=== PATIENT | male | born 1945 | race Caucasian/White ===

== ENCOUNTER 2017-09-30 00:12 | Emergency (ER) | payer OTHER ==
[2017-09-30 00:56] LABS: Glucose,Whole Blood 115 mg/dL (75-99)
--- NOTE | 2017-09-30 01:01 | ED ---
Recheck HPI - General Chief Complaint: Recheck/Abnormal Lab/Rx Stated Complaint: hypoglycemia Time Seen by Provider: 09/30/17 00:36 Source: patient, EMS, RN notes reviewed Mode of arrival: EMS Limitations: no limitations - History of Present Illness Initial Comments: 71-year-old male present emergency department via EMS for hyperglycemic event. Patient was not acting right at home was falling off the couch. EMS was called on her blood sugar in the 50s. Patient states he is only a once today and he took 86 units of 70/30 Novolin. Patient states that he's had problems like this in the past. At this time family states that he is at his normal baseline he denies headache, dizziness, chest pain, shortness breath, nausea vomiting diarrhea constipation. - Related Data Home Medications Medication Instructions Recorded Confirmed Atorvastatin [Lipitor] 80 mg PO DAILY 01/19/16 01/23/16 Benazepril HCl 40 mg PO HS 01/19/16 01/23/16 Insuln Asp Prt/Insulin Aspart 50 unit SQ W/SUPPER 01/19/16 01/23/16 [NovoLOG MIX 70-30 VIAL] Insuln Asp Prt/Insulin Aspart 85 unit SQ QAM 01/19/16 01/23/16 [NovoLOG MIX 70-30 VIAL] Naproxen [Naprosyn] 500 mg PO Q12HR 01/19/16 01/19/16 Omeprazole [PriLOSEC] 20 mg PO AC-BRKFST 01/19/16 01/23/16 amLODIPine [Norvasc] 10 mg PO HS 01/19/16 01/23/16 metFORMIN HCL 1,000 mg PO BID 01/19/16 01/23/16 Allergies Allergy/AdvReac Type Severity Reaction Status Date / Time Penicillins Allergy "passed Verified 01/23/16 07:19 out" Review of Systems ROS Statement: Those systems with pertinent positive or pertinent negative responses have been documented in the HPI. ROS Other: All systems not noted in ROS Statement are negative. Past Medical History Past Medical History: Asthma, Diabetes Mellitus, Hyperlipidemia, Hypertension Additional Past Medical History / Comment(s): hernia, History of Any Multi-Drug Resistant Organisms: None Reported Past Surgical History: No Surgical Hx Reported Additional Past Surgical History / Comment(s): surgery both eyes for detached retina Past Anesthesia/Blood Transfusion Reactions: No Reported Reaction Past Psychological History: No Psychological Hx Reported Smoking Status: Former smoker Past Alcohol Use History: None Reported Past Drug Use History: None Reported - Past Family History Sister(s) Family Medical History: Cancer Father Family Medical History: Cancer Brother(s) Family Medical History: Cancer General Exam Limitations: no limitations General appearance: alert, in no apparent distress Head exam: Present: atraumatic, normocephalic, normal inspection Eye exam: Present: normal appearance, PERRL, EOMI. Absent: scleral icterus, conjunctival injection, periorbital swelling ENT exam: Present: normal exam, normal oropharynx, mucous membranes moist, TM's normal bilaterally Neck exam: Present: normal inspection, full ROM. Absent: tenderness, meningismus, lymphadenopathy Respiratory exam: Present: normal lung sounds bilaterally. Absent: respiratory distress, wheezes, rales, rhonchi, stridor Cardiovascular Exam: Present: regular rate, normal rhythm, normal heart sounds. Absent: systolic murmur, diastolic murmur, rubs, gallop, clicks GI/Abdominal exam: Present: soft, normal bowel sounds. Absent: distended, tenderness, guarding, rebound, rigid Neurological exam: Present: alert, oriented X3, CN II-XII intact, reflexes normal. Absent: motor sensory deficit Skin exam: Present: warm, dry, intact, normal color. Absent: rash Course Vital Signs 09/30/17 00:40 Temperature 97.7 F Pulse Rate 78 Respiratory 18 Rate Blood Pressure 171/79 O2 Sat by Pulse 95 Oximetry Medical Decision Making - Medical Decision Making 71-year-old male present emergency department for hypoglycemic event. Patient' s blood sugar has been stable for 2 hours. Patient denies any much today and took a full dose of insulin. Patient has had some cough and cold-like symptoms chest x-ray reviewed no acute abnormality. Patient be discharged return parameters were discussed. - Lab Data Result diagrams: 09/30/17 01:19 09/30/17 01:19 Lab Results 09/30/17 09/30/17 09/30/17 Range/Units 00:51 01:19 01:19 WBC 7.7 (3.8-10.6) k/uL RBC 5.20 (4.30-5.90) m/uL Hgb 14.5 (13.0-17.5) gm/dL Hct 43.5 (39.0-53.0) % MCV 83.6 (80.0-100.0) fL MCH 27.8 (25.0-35.0) pg MCHC 33.3 (31.0-37.0) g/dL RDW 13.9 (11.5-15.5) % Plt Count 246 (150-450) k/uL Neutrophils % 83 % Lymphocytes % 11 % Monocytes % 5 % Eosinophils % 0 % Basophils % 0 % Neutrophils # 6.4 (1.3-7.7) k/uL Lymphocytes # 0.8 L (1.0-4.8) k/uL Monocytes # 0.4 (0-1.0) k/uL Eosinophils # 0.0 (0-0.7) k/uL Basophils # 0.0 (0-0.2) k/uL Sodium 138 (137-145) mmol/L Potassium 4.0 (3.5-5.1) mmol/L Chloride 94 L (98-107) mmol/L Carbon Dioxide 32 H (22-30) mmol/L Anion Gap 12 mmol/L BUN 10 (9-20) mg/dL Creatinine 0.60 L (0.66-1.25) mg/dL Est GFR (CKD-EPI)AfAm >90 (>60 ml/min/1.73 sqM) Est GFR (CKD-EPI)NonAf >90 (>60 ml/min/1.73 sqM) Glucose 136 H (74-99) mg/dL POC Glucose (mg/dL) 115 H (75-99) mg/dL POC Glu Ribbon Inker ID Gabriela Kelly Calcium 9.2 (8.4-10.2) mg/dL 09/30/17 Range/Units 02:00 WBC (3.8-10.6) k/uL RBC (4.30-5.90) m/uL Hgb (13.0-17.5) gm/dL Hct (39.0-53.0) % MCV (80.0-100.0) fL MCH (25.0-35.0) pg MCHC (31.0-37.0) g/dL RDW (11.5-15.5) % Plt Count (150-450) k/uL Neutrophils % % Lymphocytes % % Monocytes % % Eosinophils % % Basophils % % Neutrophils # (1.3-7.7) k/uL Lymphocytes # (1.0-4.8) k/uL Monocytes # (0-1.0) k/uL Eosinophils # (0-0.7) k/uL Basophils # (0-0.2) k/uL Sodium (137-145) mmol/L Potassium (3.5-5.1) mmol/L Chloride (98-107) mmol/L Carbon Dioxide (22-30) mmol/L Anion Gap mmol/L BUN (9-20) mg/dL Creatinine (0.66-1.25) mg/dL Est GFR (CKD-EPI)AfAm (>60 ml/min/1.73 sqM) Est GFR (CKD-EPI)NonAf (>60 ml/min/1.73 sqM) Glucose (74-99) mg/dL POC Glucose (mg/dL) 154 H (75-99) mg/dL POC Glu Ribbon Inker ID Gabriela Kelly Calcium (8.4-10.2) mg/dL Disposition Clinical Impression: Hypoglycemia, URI (upper respiratory infection) Disposition: HOME SELF-CARE Condition: Stable Instructions: Hypoglycemia in a Person with Diabetes (ED) Additional Instructions: Please return to the Emergency Department if symptoms worsen or any other concerns. Referrals: Yaya Gunter DO [Primary Care Provider] - 1-2 days Time of Disposition: 02:04
[2017-09-30 01:36] LABS: Basophils % (A) 0 %; Eosinophils % (A) 0 %; HCT 43.5 % (39.0-53.0); HGB 14.5 gm/dL (13.0-17.5); Lymphocytes # (A) 0.8 k/uL (1.0-4.8); Lymphocytes % (A) 11 %; MCH 27.8 pg (25.0-35.0); MCHC 33.3 g/dL (31.0-37.0); MCV 83.6 fL (80.0-100.0); Mean Platelet Volume 7.7; Monocytes # (A) 0.4 k/uL (0-1.0); Monocytes % (A) 5 %; Neutrophils # (A) 6.4 k/uL (1.3-7.7); Neutrophils % (A) 83 %; Platelet Count 246 k/uL (150-450); RDW 13.9 % (11.5-15.5); WBC 7.7 k/uL (3.8-10.6)
[2017-09-30 01:47] LABS: Anion Gap 12 mmol/L; Blood Urea Nitrogen 10 mg/dL (9-20); Calcium 9.2 mg/dL (8.4-10.2); Carbon Dioxide 32 mmol/L (22-30); Chloride 94 mmol/L (98-107); Glucose 136 mg/dL (74-99); Sodium 138 mmol/L (137-145)
--- NOTE | 2017-09-30 01:47 | XR ---
EXAMINATION TYPE: XR chest 2V DATE OF EXAM: 09/30/2017 COMPARISON: NONE HISTORY: Cough TECHNIQUE: Frontal and lateral views of the chest are obtained. FINDINGS: There is no heart failure nor confluent pneumonic infiltrate. There is some elevation of t he right diaphragm with interposition of the hepatic flexure of the colon. There is no pleural effusi on. Bony thorax is intact. IMPRESSION: Mild elevated right diaphragm. No parenchymal consolidation or heart failure.
[2017-09-30 02:02] LABS: Glucose,Whole Blood 154 mg/dL (75-99)
[2017-09-30 02:09] VITALS: TEMP 99.3
[2017-09-30 02:16] VITALS: BP 159/78; PULSE 74; RESP 16
== END 2017-09-30 02:26 | disposition home or self-care (01) ==
LOC: EC 00:12
DX: E11.649 Type 2 diabetes mellitus with hypoglycemia without coma (principal); J06.9 Acute upper respiratory infection, unspecified; E78.5 Hyperlipidemia, unspecified; I10 Essential (primary) hypertension; Z87.891 Personal history of nicotine dependence; Z88.0 Allergy status to penicillin; Z79.1 Long term (current) use of non-steroidal anti-inflammatories (NSAID); Z79.4 Long term (current) use of insulin; Z79.84 Long term (current) use of oral hypoglycemic drugs; Z79.899 Other long term (current) drug therapy
CPT/HCPCS: 36415; 71046; 80048; 85025; 99284

== ENCOUNTER 2017-11-03 06:48 | Day surgery (SDC) | payer OTHER ==
[2017-10-31 09:00] VITALS: BMI 21.9
[~2017-11-03 06:48] MED LIST: LACTATED RINGERS 1,000 ML IV SCH
[2017-11-03 07:17] VITALS: RESP 18; TEMP 98.8
[2017-11-03] MEDS ORDERED: LACTATED RINGERS 1,000 ML IV ONE (07:17)
[2017-11-03 07:21] LABS: Glucose,Whole Blood 145 mg/dL (75-99)
[2017-11-03] MEDS ORDERED: LIDOCAINE 1% INJ 10MG/ML (20 ML MDV) ONE (07:45)
[2017-11-03] MEDS ORDERED: PROPOFOL 10 MG/ML 20 ML VIAL IV ONE (07:45)
--- NOTE | 2017-11-03 08:37 | P.PCN ---
Date of Procedure: 11/03/17 Procedure(s) Performed: Procedure: Colonoscopy and polypectomy. Preoperative diagnosis: Screening for neoplasia. Postoperative diagnosis: 1. Small polyp in the rectum snared but no large polyps or cancer. 2. Poor preparation, otherwise, no other obvious pathology noted. Preparation: HalfLytely prep. Sedation: Was provided by anesthesia. Brief clinical history: The patient is 71-year-old male who is scheduled for this evaluation for screening for neoplasia age being his risk factor as well as history of polyps. He had a prior exam in 2016 that showed no obvious abnormalities but his preparation was poor. The patient has no abdominal complaints, bleeding or anemia. Procedure: With the patient on his left lateral decubitus position and after informed consent and adequate sedation, the perianal area was inspected and it did not show any fissures or fistulas. There were no masses felt on digital rectal examination. The Olympus CFQ 160L video colonoscope was then inserted in the rectum in the usual fashion and advanced. The preparation was poor, and unfortunately, the preparation was not getting any better as I was advancing the endoscope to the right side and cecum. There was no obvious pathology noted but with his poor preparation significant pathology could have been missed. There was no obvious bleeding and all fecal material was yellow-green in color. Where visualized, the mucosa appeared healthy. Upon withdrawing the endoscope and as I was cleansing the bowel, a small polyp was noted in the rectum which I snared and retrieved by suction. The patient tolerated the procedure. Plan: In light of his preparation, I recommended a repeat exam in one year or two after a 2 day preparation especially if the polyp removed today show adenomatous tissue. He'll follow up with you as planned.
[2017-11-03 08:39] LABS: Glucose,Whole Blood 146 mg/dL (75-99)
[2017-11-03 08:57] VITALS: BP 172/90; PULSE 90
== END 2017-11-03 09:32 | disposition home or self-care (01) ==
LOC: ORWHC2ENDO 06:48
DX: Z12.11 Encounter for screening for malignant neoplasm of colon (principal); D12.8 Benign neoplasm of rectum; Z86.010 Personal history of colon polyps; E11.9 Type 2 diabetes mellitus without complications; J45.909 Unspecified asthma, uncomplicated; K21.9 Gastro-esophageal reflux disease without esophagitis; I10 Essential (primary) hypertension; E78.5 Hyperlipidemia, unspecified; Z72.0 Tobacco use; Z88.0 Allergy status to penicillin; Z79.1 Long term (current) use of non-steroidal anti-inflammatories (NSAID); Z79.4 Long term (current) use of insulin; Z79.899 Other long term (current) drug therapy
CPT/HCPCS: 88305; 45385; J2001; J2704

== ENCOUNTER 2018-08-12 07:25 | Day surgery (SDC) | payer MEDICARE, OTHER ==
[2018-08-10 09:37] VITALS: BMI 37.8
[~2018-08-12 07:25] MED LIST changes: +CLINDAMYCIN 900 MG in DEXTROSE 5% IN WATER 50 ML IVPB ONE; +DEXAMETHASONE SOD PHOSPHATE 10 MG/ML 1 ML VIAL IV ONE; +HEPARIN SODIUM,PORCINE 5,000 UNIT/ML 1 ML VIAL SQ ONE; +LEVOFLOXACIN 500MG-D5W PMX 500 MG in DEXTROSE/WATER 1 100ML.BAG IVPB ONE; +LIDOCAINE 1% 20 ML VIAL (10MG/ML) FOR IV START INTRADERMA PRN; +MIDAZOLAM 2 MG/2 ML VIAL IV PRN; +fentaNYL (PF) 50 MCG/ML 2 ML AMP IV PRN
[2018-08-12 08:47] LABS: Glucose,Whole Blood 340 mg/dL (75-99)
[2018-08-12] MEDS ORDERED: ONDANSETRON 4 MG/2 ML VIAL IVP ONE (08:56)
[2018-08-12] MEDS ORDERED: INSULIN ASPART (NovoLOG) 100 UNIT/ML VIAL SQ ONE ×3 (09:15→14:38)
--- NOTE | 2018-08-12 09:27 | P.GSHP ---
History of Present Illness H&P Date: 08/12/18 Chief Complaint: Incarcerated umbilical hernia This a 72-year-old male who has developed a large incarcerated umbilical hernia. Patient presents today for laparoscopic robotic-assisted repair. 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 History of Any Multi-Drug Resistant Organisms: None Reported Past Surgical History: No Surgical Hx Reported Additional Past Surgical History / Comment(s): surgery both eyes for detached retina, colonoscopy Past Anesthesia/Blood Transfusion Reactions: No Reported Reaction Past Psychological History: No Psychological Hx Reported Smoking Status: Current some day smoker Past Alcohol Use History: None Reported Additional Past Alcohol Use History / Comment(s): occ cigar, quit smoking cigarettes 1966 Past Drug Use History: None Reported - Past Family History Sister(s) Family Medical History: Cancer Additional Family Medical History / Comment(s): 2 SISTERS HAD MELANOMA Father Family Medical History: Cancer Additional Family Medical History / Comment(s): MELANOMA Brother(s) Family Medical History: Cancer Mother Family Medical History: Cancer Additional Family Medical History / Comment(s): BREAST CA Medications and Allergies Home Medications Medication Instructions Recorded Confirmed Type Insuln Asp Prt/Insulin Aspart 65 unit SQ HS 01/19/16 08/12/18 History [NovoLOG MIX 70-30 VIAL] Insuln Asp Prt/Insulin Aspart 80 unit SQ QA 01/19/16 08/12/18 History [NovoLOG MIX 70-30 VIAL] Omeprazole [PriLOSEC] 20 mg PO AC-BRKFST 01/19/16 08/12/18 History amLODIPine [Norvasc] 10 mg PO HS 01/19/16 08/12/18 History metFORMIN HCL 1,000 mg PO BID 01/19/16 08/12/18 History Cholecalciferol [Vitamin D3] 5,000 unit PO DAILY 10/31/17 08/12/18 History Calcium (Unknown Dose) 1 tab PO DAILY 08/10/18 08/12/18 History Fexofenadine/Pseudoephedrine 1 each PO DAILY 08/10/18 08/12/18 History [Pari-D 24 Hour Tablet] Nyquil Cold & Flu 1 dose PO HS PRN 08/10/18 08/12/18 History [place]-3 Fatty Acids/Fish Oil [Fish 1 each PO DAILY 08/10/18 08/12/18 History Oil 1,000 mg Softgel] Vitamin E (Dl,Tocopheryl Acet) 400 unit PO DAILY 08/10/18 08/12/18 History [Vitamin E] Allergies Allergy/AdvReac Type Severity Reaction Status Date / Time Sulfa (Sulfonamide Allergy Unknown Rash/Hives Verified 08/12/18 08:34 Antibiotics) Penicillins Allergy "passed Verified 08/12/18 08:34 out" Surgical - Exam Vital Signs Temp Pulse Resp BP Pulse Ox 97.7 F 91 18 181/86 95 08/12/18 08:45 08/12/18 08:45 08/12/18 08:45 08/12/18 08:45 08/12/18 08:45 - General well developed, well nourished, no distress - Eyes PERRL - ENT normal pinna - Neck no masses - Respiratory normal expansion - Cardiovascular Rhythm: regular - Abdomen Abdomen: soft, non tender Hernia: umbilical (5 cm incarcerated umbilical hernia) Results - Labs Abnormal Lab Results - Last 24 Hours (Table) 08/12/18 Range/Units 08:45 POC Glucose (mg/dL) 340 H (75-99) mg/dL Assessment and Plan Assessment: Incarcerated local hernia. We'll perform laparoscopic robotic-assisted repair.
[2018-08-12] MEDS ORDERED: ROPIVACAINE 5 MG/ML 30 ML VIAL ONE (09:46)
[2018-08-12] MEDS ORDERED: ROCURONIUM BROMIDE 10 MG/ML 10 ML VIAL IV ONE (09:46)
[2018-08-12] MEDS ORDERED: LIDOCAINE 2%-EPI 1:100,000 20 ML VIAL ONE (09:46)
[2018-08-12] MEDS ORDERED: fentaNYL (PF) 50 MCG/ML 2 ML AMP ONE (09:46)
[2018-08-12] MEDS ORDERED: BUPIVACAIN-EPI 0.25%-1:200,000 30 ML VIAL SQ ONE ×2 (09:46→10:14)
[2018-08-12] MEDS ORDERED: MIDAZOLAM 2 MG/2 ML VIAL ONE (09:46)
[2018-08-12] MEDS ORDERED: LIDOCAINE 1% INJ 10MG/ML (20 ML MDV) ONE (09:46)
[2018-08-12] MEDS ORDERED: PROPOFOL 10 MG/ML 20 ML VIAL IV ONE (09:46)
[2018-08-12] MEDS ORDERED: NEOSTIGMINE 1 MG/ML 10 ML VIAL ONE (09:46)
[2018-08-12] MEDS ORDERED: GLYCOPYRROLATE 0.2 MG/ML 2 ML VIAL ONE (09:46)
[2018-08-12] MEDS ORDERED: LACTATED RINGERS 1,000 ML IV ONE (10:47)
[2018-08-12 11:04] LABS: Glucose,Whole Blood 359 mg/dL (75-99)
--- NOTE | 2018-08-12 11:16 | P.OP ---
Date of Procedure: 08/12/18 Preoperative Diagnosis: Incarcerated umbilical hernia Postoperative Diagnosis: Incarcerated umbilical hernia Procedure(s) Performed: Laparoscopic robotic-assisted repair of incarcerated umbilical hernia Partial omentectomy Anesthesia: MAC Surgeon: Chivo Zamora Estimated Blood Loss (ml): 5 Pathology: other (Omentum) Condition: stable Disposition: PACU Description of Procedure: The patient was placed on the operating table in the supine position. He received general anesthesia. His abdomen was prepped and draped usual fashion. Using a 5 mm optical trocar under direct visualization the peritoneal cavity was entered in the left upper quadrant. The abdomen was then insufflated. The laparoscope was placed back into the perineal cavity. Next a 8 mm robotic trocar was placed in the left lower quadrant and a 12 mm robotic trocar was placed in the left lateral position. The original 5 mm trocar was exchanged for a 8 mm robotic trocar. The patient's placed in the left side up position. And the patient was undocked the robot. The umbilical hernia was visualized. The hernia contained incarcerated omentum. The hernia defect measured approximately 3 cm diameter. Using the hook cautery the neck of the hernial was divided and the incarcerated omentum was dissected free. A small portion of the nonviable omentum was transected. Using hook cautery the peritoneum over the umbilical hernia was excised. The fascial opening was repaired using 0V LOC suture. Next a piece of 11 cm round ventral light ST mesh was placed into the. Cavity and secured with 2 OV lock suture. The patient was undocked the robot. The needles were retrieved. The omentum was retrieved. The fascia of the 12 mm trocar site was closed with 0 Ethibond suture. Skin was closed interrupted 3-0 Monocryl suture. Dermabond dressings was applied. Patient top procedure well and was sent to recovery room stable condition.
[2018-08-12 11:21] VITALS: TEMP 97
[2018-08-12 11:55] VITALS: RESP 16
[2018-08-12] MEDS ORDERED: HYDROcodone/APAP 7.5-325MG 1 EACH TAB PO ONE (13:46)
[2018-08-12 14:17] VITALS: BP 170/79; PULSE 92
[2018-08-12 14:33] LABS: Glucose,Whole Blood 352 mg/dL (75-99)
--- NOTE | 2018-08-13 07:06 | P.ONQ ---
Anesthesiology Proc Note - PNB - Peripheral Nerve Block Performed Bilateral Rectus Abdominis Single Time Out Performed: Yes Procedure Start Time: Procedure Stop Time: Indication: Acute Post-Operative Pain, Requested by physician Sedation Type: Sedate with meaningful contact maintained Preparation: Sterile Prep Position: Supine Needle Size: 50mm (2") Needle Gauge: 21 Technique: Ultrasound (ropi 15cc plus xylo2% with epi 15cc and dexamethasone 2mg each side) Blood Aspirated: No Pain Paresthesia on Injection Noted: No Resistance on Injection: Normal Events: Uneventful and Well Tolerated
== END 2018-08-12 15:00 | disposition home or self-care (01) ==
LOC: OR 07:25
PROVIDERS: ATTEND Surgery
DX: K42.0 Umbilical hernia with obstruction, without gangrene (principal); E11.9 Type 2 diabetes mellitus without complications; E78.5 Hyperlipidemia, unspecified; H91.92 Unspecified hearing loss, left ear; I10 Essential (primary) hypertension; J45.909 Unspecified asthma, uncomplicated; F17.290 Nicotine dependence, other tobacco product, uncomplicated; K21.9 Gastro-esophageal reflux disease without esophagitis; Z79.4 Long term (current) use of insulin; Z88.0 Allergy status to penicillin; Z88.2 Allergy status to sulfonamides; Z79.899 Other long term (current) drug therapy
CPT/HCPCS: 49653; 64488; 88305; C1781; J2250; J1644; J1100; J2710; J2405; J2001; J3010; J2795; J2704; 93005

== ENCOUNTER 2019-11-30 11:20 | Inpatient (IN) | payer OTHER, MEDICARE ==
[2019-11-30 11:52] LABS: Glucose,Whole Blood 64 mg/dL (75-99)
[2019-11-30 12:15] LABS: Basophils % (A) 0 %; Eosinophils # (A) 0.1 k/uL (0-0.7); Eosinophils % (A) 1 %; HCT 48.7 % (39.0-53.0); HGB 15.7 gm/dL (13.0-17.5); Lymphocytes % (A) 9 %; MCH 28.7 pg (25.0-35.0); MCHC 32.2 g/dL (31.0-37.0); MCV 89.2 fL (80.0-100.0); Mean Platelet Volume 8.3; Monocytes # (A) 0.5 k/uL (0-1.0); Monocytes % (A) 4 %; Neutrophils # (A) 9.8 k/uL (1.3-7.7); Neutrophils % (A) 85 %; Platelet Count 299 k/uL (150-450); RBC 5.46 m/uL (4.30-5.90); RDW 13.9 % (11.5-15.5); WBC 11.5 k/uL (3.8-10.6)
[2019-11-30] MEDS ORDERED: DEXTROSE 5%-0.45% NACL 1,000 ML IV ONE (12:37)
--- NOTE | 2019-11-30 12:37 | CT ---
EXAMINATION TYPE: CT brain wo con DATE OF EXAM: 11/30/2019 COMPARISON: None HISTORY: Altered mental status. CT DLP: 1139.4 mGycm Automated exposure control for dose reduction was used. FINDINGS: Low-attenuation the right occipital lobe. There is generalized degenerative change. No midline shift or mass effect. Low-attenuation the white matter is most typical remote microvascular ischemia. No ma ss effect. Calvarium intact. No acute hemorrhage. Small focal area of low attenuation in the left octavio lamus suggestive of remote IMPRESSION: DEGENERATIVE AND NONSPECIFIC WHITE MATTER CHANGES MOST TYPICAL REMOTE ISCHEMIA. AREA OF INFARCT INVOL VING THE RIGHT OCCIPITAL LOBE SUSPECTED. RECOMMEND FOLLOW-UP MRI.
[2019-11-30 12:38] LABS: Glucose,Whole Blood 52 mg/dL (75-99)
--- NOTE | 2019-11-30 12:38 | XR ---
EXAMINATION TYPE: XR chest 2V DATE OF EXAM: 11/30/2019 COMPARISON: NONE TECHNIQUE: PA and lateral views submitted. HISTORY: Mental status change FINDINGS: The lungs are clear and there is no pneumothorax, pleural effusion, or focal pneumonia. Degenerativ e change of the spine. Elevated hemidiaphragm. No obvious consolidation. Subsegmental changes right l gris base likely related to compressive atelectasis. Nonspecific air-fluid levels are seen in the abdo men on the lateral view. Correlate clinically. IMPRESSION: 1. Elevated right hemidiaphragm with suspected right basilar atelectasis.
[2019-11-30] MEDS ORDERED: DEXTROSE 50% SYRINGE 50 ML IVP STA (12:39)
[2019-11-30 12:47] LABS: Partial Thromboplastin Time 21.4 sec (22.0-30.0); Prothrombin Time 10.1 sec (9.0-12.0)
[2019-11-30 13:03] LABS: Glucose,Whole Blood 94 mg/dL (75-99)
[2019-11-30] MEDS ORDERED: hydrALAZINE HCL 20 MG/ML 1 ML VIAL IVP STA (13:09)
[2019-11-30 13:38] LABS: Potassium 4.3 mmol/L (3.5-5.1)
[2019-11-30 13:39] LABS: ALT 17 U/L (4-49); AST 27 U/L (17-59); African American GFR (CKD) >90 (>60 ml/min/1.73 sqM); Albumin 4.1 g/dL (3.5-5.0); Alkaline Phosphatase 61 U/L (38-126); Anion Gap 9 mmol/L; Blood Urea Nitrogen 14 mg/dL (9-20); Calcium 9.9 mg/dL (8.4-10.2); Carbon Dioxide 26 mmol/L (22-30); Chloride 99 mmol/L (98-107); Glucose 136 mg/dL (74-99); Magnesium 1.7 mg/dL (1.6-2.3); Non-African American GFR(CKD) >90 (>60 ml/min/1.73 sqM); Phosphorus 3.9 mg/dL (2.5-4.5); Sodium 134 mmol/L (137-145); Total Protein 7.2 g/dL (6.3-8.2)
[2019-11-30 14:02] LABS: Glucose,Whole Blood 107 mg/dL (75-99)
--- NOTE | 2019-11-30 14:12 | ED ---
Altered Mental Status HPI <Jeo Mansfield - Last Filed: 11/30/19 14:32> - General Source: patient, family Mode of arrival: EMS Limitations: altered mental status <Amanda Melchor - Last Filed: 11/30/19 15:11> - General Chief Complaint: Altered Mental Status Stated Complaint: LOW BLOOD SUGAR Time Seen by Provider: 11/30/19 11:45 - History of Present Illness Initial Comments: 73-year-old male presents today for chief complaint of low blood glucose. Sister states that this morning patient seemed out of it EMS was called and had a blood glucose of 48. Patient states he did not take his insulin this morning but is an insulin-dependent diabetic also takes metformin. Patient denies chest pain shortness of breath headache dizziness he states he has been weak for the past week. He denies any exertional dyspnea leg swelling. He states that he has noted a twitch and we will positioning of his right upper extremity. He denies weakness of the extremity diplopia, voice changes. Denies psychiatric medication use. Denies additional complaints. Upon arrival pt continues to have low blood glucose despite drinking juice. AAOX4. (Amanda Melchor) - Related Data Home Medications Medication Instructions Recorded Confirmed Insuln Asp Prt/Insulin Aspart 43 unit SQ HS 01/19/16 08/11/19 [NovoLOG MIX 70-30 VIAL] Insuln Asp Prt/Insulin Aspart 85 unit SQ QA 01/19/16 08/11/19 [NovoLOG MIX 70-30 VIAL] Omeprazole [PriLOSEC] 20 mg PO AC-BRKFST 01/19/16 08/11/19 amLODIPine [Norvasc] 10 mg PO HS 01/19/16 08/11/19 metFORMIN HCL 1,000 mg PO DAILY 01/19/16 08/11/19 Cholecalciferol [Vitamin D3] 5,000 unit PO DAILY 10/31/17 08/11/19 Calcium (Unknown Dose) 1 tab PO DAILY 08/10/18 08/11/19 [place]-3 Fatty Acids/Fish Oil [Fish 1 each PO DAILY 08/10/18 08/11/19 Oil 1,000 mg Softgel] Vitamin E (Dl,Tocopheryl Acet) 400 unit PO DAILY 08/10/18 08/11/19 [Vitamin E] Loratadine [Claritin] 10 mg PO DAILY 08/11/19 08/11/19 Allergies Allergy/AdvReac Type Severity Reaction Status Date / Time Sulfa (Sulfonamide Allergy Unknown Rash/Hives Verified 11/30/19 11:27 Antibiotics) Penicillins Allergy "passed Verified 11/30/19 11:27 out" Review of Systems ROS Other: All systems not noted in ROS Statement are negative. <Joe Mansfield - Last Filed: 11/30/19 14:32> ROS Other: All systems not noted in ROS Statement are negative. <Amanda Melchor - Last Filed: 11/30/19 15:11> ROS Statement: Those systems with pertinent positive or pertinent negative responses have been documented in the HPI. Past Medical History Past Medical History: Asthma, Diabetes Mellitus, GERD/Reflux, Hypertension Additional Past Medical History / Comment(s): HEARING LOSS LEFT EAR. History of Any Multi-Drug Resistant Organisms: None Reported Past Surgical History: Hernia Repair Additional Past Surgical History / Comment(s): surgery both eyes for detached retina, colonoscopy Past Anesthesia/Blood Transfusion Reactions: No Reported Reaction Past Psychological History: No Psychological Hx Reported Smoking Status: Former smoker Past Alcohol Use History: None Reported Past Drug Use History: None Reported - Past Family History Sister(s) Family Medical History: Cancer Additional Family Medical History / Comment(s): 2 SISTERS HAD MELANOMA Father Family Medical History: Cancer Additional Family Medical History / Comment(s): MELANOMA Brother(s) Family Medical History: Cancer Mother Family Medical History: Cancer Additional Family Medical History / Comment(s): BREAST CA <Amanda Melchor - Last Filed: 11/30/19 15:11> General Exam Limitations: altered mental status <Amanda Melchor - Last Filed: 11/30/19 15:11> - General Exam Comments Initial Comments: General: The patient is awake and alert, in no distress Eye: +3 mm pupils are equal, round and reactive to light, extra-ocular movements are intact. No nystagmus. There is normal conjunctiva bilaterally. No signs of icterus. Ears, nose, mouth and throat: There are moist mucous membranes and no oral lesions. Neck: The neck is supple, there is no tenderness or JVD. Cardiovascular: There is a regular rate and rhythm. No murmur, rub or gallop is appreciated. Respiratory: Lungs are clear to auscultation, respirations are non-labored, breath sounds are equal. No wheezes, stridor, rales, or rhonchi. Gastrointestinal: Soft, non-distended, non-tender abdomen without masses or organomegaly noted. There is no rebound or guarding present. Musculoskeletal: Normal ROM, no tenderness. Strength 5/5. Sensation intact. Radial pulses equal bilaterally 2+. Neurological: A&O x 3. CN II-XII intact, full strength of the UE and LE b/l. Sensation of the UE and LE b/l.Tremor and contracture of the right hand but has full conductor yard strength. Coordination intact. Speech is normal. No pronator drift. No drift of the LE. Skin: Skin is warm and dry and no rashes or lesions are noted. Psychiatric: Cooperative, appropriate mood & affect, normal judgment. (Amanda Melchor) Course <Joe Mansfield - Last Filed: 11/30/19 14:32> Vital Signs 11/30/19 11/30/19 11/30/19 11:23 12:01 12:42 Temperature 97.5 F L Pulse Rate 63 73 71 Respiratory 18 16 16 Rate Blood Pressure 160/68 167/98 133/115 O2 Sat by Pulse 98 100 99 Oximetry 11/30/19 11/30/19 13:12 14:01 Temperature Pulse Rate 86 70 Respiratory 16 18 Rate Blood Pressure 133/74 146/95 O2 Sat by Pulse 99 100 Oximetry - Reevaluation(s) Reevaluation #1: 11/30/19 14:32 PA supervision: I personally evaluate this case patient presenting with complaints of symptoms consistent with hypoglycemia. He continues to demonstra te evidence of low blood sugar. He will be admitted case was discussed with Dr. Rabago. (Joe Mansfield) Medical Decision Making - Lab Data Result diagrams: 11/30/19 11:57 11/30/19 13:04 <Joe Mansfield - Last Filed: 11/30/19 14:32> - Lab Data Result diagrams: 11/30/19 11:57 11/30/19 13:04 <Amanda Melchor - Last Filed: 11/30/19 15:11> - Medical Decision Making 73-year-old male presenting for low glucose, generalized weakness. Noted tremor or right hand. No weakness. NIH 0. No focal deficits. CT remote infarct. Labs stable, however despite treatment sugars labile. Patient will be placed onf D5- 1/2 NS in attempt to regulate with frequent reevaluation of blood glucose. Patient is agreeable to admission. Neurology on consult. Dr. Rabago accepted patient. Dr. Mansfield agreeable to care plan and admission' (Amanda Melchor) - Lab Data Lab Results 11/30/19 11/30/19 11/30/19 Range/Units 11:46 11:57 11:57 WBC 11.5 H (3.8-10.6) k/uL RBC 5.46 (4.30-5.90) m/uL Hgb 15.7 (13.0-17.5) gm/dL Hct 48.7 (39.0-53.0) % MCV 89.2 (80.0-100.0) fL MCH 28.7 (25.0-35.0) pg MCHC 32.2 (31.0-37.0) g/dL RDW 13.9 (11.5-15.5) % Plt Count 299 (150-450) k/uL Neutrophils % 85 % Lymphocytes % 9 % Monocytes % 4 % Eosinophils % 1 % Basophils % 0 % Neutrophils # 9.8 H (1.3-7.7) k/uL Lymphocytes # 1.0 (1.0-4.8) k/uL Monocytes # 0.5 (0-1.0) k/uL Eosinophils # 0.1 (0-0.7) k/uL Basophils # 0.0 (0-0.2) k/uL PT 10.1 (9.0-12.0) sec INR 1.0 (<1.2) APTT 21.4 L (22.0-30.0) sec Sodium (137-145) mmol/L Potassium (3.5-5.1) mmol/L Chloride (98-107) mmol/L Carbon Dioxide (22-30) mmol/L Anion Gap mmol/L BUN (9-20) mg/dL Creatinine (0.66-1.25) mg/dL Est GFR (CKD-EPI)AfAm (>60 ml/min/1.73 sqM) Est GFR (CKD-EPI)NonAf (>60 ml/min/1.73 sqM) Glucose (74-99) mg/dL POC Glucose (mg/dL) 64 L (75-99) mg/dL POC Glu Analog Ic Design Architect ID Michaelle Garnica Calcium (8.4-10.2) mg/dL Phosphorus (2.5-4.5) mg/dL Magnesium (1.6-2.3) mg/dL Total Bilirubin (0.2-1.3) mg/dL AST (17-59) U/L ALT (4-49) U/L Alkaline Phosphatase (38-126) U/L Ammonia (<30) umol/L Troponin I (0.000-0.034) ng/mL Total Protein (6.3-8.2) g/dL Albumin (3.5-5.0) g/dL 11/30/19 11/30/19 11/30/19 Range/Units 11:57 12:36 13:01 WBC (3.8-10.6) k/uL RBC (4.30-5.90) m/uL Hgb (13.0-17.5) gm/dL Hct (39.0-53.0) % MCV (80.0-100.0) fL MCH (25.0-35.0) pg MCHC (31.0-37.0) g/dL RDW (11.5-15.5) % Plt Count (150-450) k/uL Neutrophils % % Lymphocytes % % Monocytes % % Eosinophils % % Basophils % % Neutrophils # (1.3-7.7) k/uL Lymphocytes # (1.0-4.8) k/uL Monocytes # (0-1.0) k/uL Eosinophils # (0-0.7) k/uL Basophils # (0-0.2) k/uL PT (9.0-12.0) sec INR (<1.2) APTT (22.0-30.0) sec Sodium (137-145) mmol/L Potassium (3.5-5.1) mmol/L Chloride (98-107) mmol/L Carbon Dioxide (22-30) mmol/L Anion Gap mmol/L BUN (9-20) mg/dL Creatinine (0.66-1.25) mg/dL Est GFR (CKD-EPI)AfAm (>60 ml/min/1.73 sqM) Est GFR (CKD-EPI)NonAf (>60 ml/min/1.73 sqM) Glucose (74-99) mg/dL POC Glucose (mg/dL) 52 L 94 (75-99) mg/dL POC Glu Analog Ic Design Architect ID Cinthia Estrada Kayla Calcium (8.4-10.2) mg/dL Phosphorus (2.5-4.5) mg/dL Magnesium (1.6-2.3) mg/dL Total Bilirubin (0.2-1.3) mg/dL AST (17-59) U/L ALT (4-49) U/L Alkaline Phosphatase (38-126) U/L Ammonia <9 (<30) umol/L Troponin I (0.000-0.034) ng/mL Total Protein (6.3-8.2) g/dL Albumin (3.5-5.0) g/dL 11/30/19 11/30/19 11/30/19 Range/Units 13:04 13:04 14:00 WBC (3.8-10.6) k/uL RBC (4.30-5.90) m/uL Hgb (13.0-17.5) gm/dL Hct (39.0-53.0) % MCV (80.0-100.0) fL MCH (25.0-35.0) pg MCHC (31.0-37.0) g/dL RDW (11.5-15.5) % Plt Count (150-450) k/uL Neutrophils % % Lymphocytes % % Monocytes % % Eosinophils % % Basophils % % Neutrophils # (1.3-7.7) k/uL Lymphocytes # (1.0-4.8) k/uL Monocytes # (0-1.0) k/uL Eosinophils # (0-0.7) k/uL Basophils # (0-0.2) k/uL PT (9.0-12.0) sec INR (<1.2) APTT (22.0-30.0) sec Sodium 134 L (137-145) mmol/L Potassium 4.3 (3.5-5.1) mmol/L Chloride 99 (98-107) mmol/L Carbon Dioxide 26 (22-30) mmol/L Anion Gap 9 mmol/L BUN 14 (9-20) mg/dL Creatinine 0.69 (0.66-1.25) mg/dL Est GFR (CKD-EPI)AfAm >90 (>60 ml/min/1.73 sqM) Est GFR (CKD-EPI)NonAf >90 (>60 ml/min/1.73 sqM) Glucose 136 H (74-99) mg/dL POC Glucose (mg/dL) 107 H (75-99) mg/dL POC Glu Analog Ic Design Architect ID Nirali Donaldson Calcium 9.9 (8.4-10.2) mg/dL Phosphorus 3.9 (2.5-4.5) mg/dL Magnesium 1.7 (1.6-2.3) mg/dL Total Bilirubin 1.0 (0.2-1.3) mg/dL AST 27 (17-59) U/L ALT 17 (4-49) U/L Alkaline Phosphatase 61 (38-126) U/L Ammonia (<30) umol/L Troponin I <0.012 (0.000-0.034) ng/mL Total Protein 7.2 (6.3-8.2) g/dL Albumin 4.1 (3.5-5.0) g/dL Disposition <Joe Mansfield - Last Filed: 11/30/19 14:32> Is patient prescribed a controlled substance at d/c from ED?: No Time of Disposition: 14:12 Decision to Admit Reason: Admit from EC Decision Date: 11/30/19 Decision Time: 14:12 <Amanda Melchor - Last Filed: 11/30/19 15:11> Clinical Impression: Hypoglycemia, Labile blood glucose, Generalized weakness, Spasms of the hands or feet, Cerebral infarction, remote, resolved Disposition: ADMITTED IP TO THIS [facility] Condition: Serious Referrals: None,Stated [Primary Care Provider] - 1-2 days
[2019-11-30] MEDS ORDERED: NALOXONE 0.4 MG/ML 1 ML VIAL IV PRN ×2 (15:09→16:09)
[2019-11-30 15:16] LABS: Glucose,Whole Blood 74 mg/dL (75-99)
[2019-11-30] MEDS ORDERED: ACETAMINOPHEN TAB 325 MG TAB PO PRN (16:09)
--- NOTE | 2019-11-30 16:20 | P.HPIM ---
History of Present Illness H&P Date: 11/30/19 Chief Complaint: falls 73-year-old male presents today for chief complaint of low blood glucose. Sister states that this morning patient seemed out of it EMS was called and had a blood glucose of 48. Patient states he did not take his insulin this morning but is an insulin-dependent diabetic also takes metformin. Patient is a poor historian and most of the history was taken from her sister at the bedside, the sister stated that patient has been having a lot of imbalance over the past several days and he fell twice. Slurred speech was also reported. No blurred or double vision. No focal weakness or numbness. No chest pain or shortness of breath, headache, dizziness. No leg swelling. Upon arrival to the ER he continued to have low blood glucose despite drinking juice. He dropped as low as 52 in the emergency department. Currently blood sugar is 72. Patient had a head CT scan which showed right occipital lobe infarct. Chest x-ray showed right basilar atelectasis. EKG showed normal sinus rhythm without acute ST or T-wave changes. Review of Systems Complete review of system performed, pertinent positives per HPI, otherwise negative Past Medical History Past Medical History: Asthma, Diabetes Mellitus, GERD/Reflux, Hypertension Additional Past Medical History / Comment(s): HEARING LOSS LEFT EAR. History of Any Multi-Drug Resistant Organisms: None Reported Past Surgical History: Hernia Repair Additional Past Surgical History / Comment(s): surgery both eyes for detached retina, colonoscopy Past Anesthesia/Blood Transfusion Reactions: No Reported Reaction Past Psychological History: No Psychological Hx Reported Smoking Status: Former smoker Past Alcohol Use History: None Reported Past Drug Use History: None Reported - Past Family History Sister(s) Family Medical History: Cancer Additional Family Medical History / Comment(s): 2 SISTERS HAD MELANOMA Father Family Medical History: Cancer Additional Family Medical History / Comment(s): MELANOMA Brother(s) Family Medical History: Cancer Mother Family Medical History: Cancer Additional Family Medical History / Comment(s): BREAST CA Medications and Allergies Home Medications Medication Instructions Recorded Confirmed Type Insuln Asp Prt/Insulin Aspart 50 unit SQ HS 01/19/16 11/30/19 History [NovoLOG MIX 70-30 VIAL] Insuln Asp Prt/Insulin Aspart 80 unit SQ QAM 01/19/16 11/30/19 History [NovoLOG MIX 70-30 VIAL] Omeprazole [PriLOSEC] 20 mg PO AC-BRKFST 01/19/16 11/30/19 History amLODIPine [Norvasc] 10 mg PO HS 01/19/16 11/30/19 History metFORMIN HCL 500 mg PO BID 01/19/16 11/30/19 History Cholecalciferol [Vitamin D3] 1,000 unit PO DAILY 10/31/17 11/30/19 History [place]-3 Fatty Acids/Fish Oil [Fish 1 cap PO DAILY 08/10/18 11/30/19 History Oil 1,000 mg Softgel] Vitamin E (Dl,Tocopheryl Acet) 400 unit PO DAILY 08/10/18 11/30/19 History [Vitamin E] Loratadine [Claritin] 10 mg PO DAILY 08/11/19 11/30/19 History Allergies Allergy/AdvReac Type Severity Reaction Status Date / Time Sulfa (Sulfonamide Allergy Unknown Rash/Hives Verified 11/30/19 15:32 Antibiotics) Penicillins Allergy "passed Verified 11/30/19 15:32 out" Physical Exam Vitals: Vital Signs Temp Pulse Resp BP Pulse Ox 11/30/19 15:31 80 16 156/81 99 11/30/19 14:01 70 18 146/95 100 11/30/19 13:12 86 16 133/74 99 11/30/19 12:42 71 16 133/115 99 11/30/19 12:01 73 16 167/98 100 11/30/19 11:23 97.5 F L 63 18 160/68 98 Intake and Output 11/30/19 11/30/19 11/30/19 06:59 14:59 22:59 Other: Weight 99.79 kg Constitutional: No acute distress, conversant, pleasant Eyes:Anicteric sclerae, moist conjunctiva, no lid-lag, PERRLA, ENMT: Oropharynx clear, no erythema, exudates Neck: Supple, FROM, no masses, or JVD, No carotid bruits, No thyromegaly Lungs: Clear to auscultation, Clear to percussion, Normal respiratory effort, no accessory muscle use Cardiovascular: Heart regular in rate and rhythm, No murmurs, gallops, or rubs, No peripheral edema Abdominal: Soft, Nontender, no guarding, rebound or rigidity, Normoactive bowel sounds, No hepatomegaly, No splenomegaly, No palpable mass Skin: Normal temperature, tone, texture, turgor, no induration, No subcutaneous nodules, No rash, lesions, No ulcers Extremities: No digital cyanosis, No clubbing, Pedal pulses intact and symmetrical, Radial pulses intact and symmetrical, No calf tenderness Psychiatric: Alert and oriented to person, place and time, appropriate affect, intact judgement Neuro: Muscles Strength 5/5 in all 4 extremities, Sensation to light touch gross ly present throughout, Cranial nerves II-XII grossly intact, no focal sensory deficits Results CBC & Chem 7: 11/30/19 11:57 11/30/19 13:04 Labs: Abnormal Lab Results - Last 24 Hours (Table) 11/30/19 11/30/19 11/30/19 Range/Units 11:46 11:57 11:57 WBC 11.5 H (3.8-10.6) k/uL Neutrophils # 9.8 H (1.3-7.7) k/uL APTT 21.4 L (22.0-30.0) sec Sodium (137-145) mmol/L Glucose (74-99) mg/dL POC Glucose (mg/dL) 64 L (75-99) mg/dL 11/30/19 11/30/19 11/30/19 Range/Units 12:36 13:04 14:00 WBC (3.8-10.6) k/uL Neutrophils # (1.3-7.7) k/uL APTT (22.0-30.0) sec Sodium 134 L (137-145) mmol/L Glucose 136 H (74-99) mg/dL POC Glucose (mg/dL) 52 L 107 H (75-99) mg/dL 11/30/19 Range/Units 15:14 WBC (3.8-10.6) k/uL Neutrophils # (1.3-7.7) k/uL APTT (22.0-30.0) sec Sodium (137-145) mmol/L Glucose (74-99) mg/dL POC Glucose (mg/dL) 74 L (75-99) mg/dL Assessment and Plan Plan: Occipital CVA Likely acute Start aspirin 325 mg by mouth daily Bedside swallow evaluation PT and OT Telemetry MRI brain CT angio head and neck Echo Check lipid profile and A1c Hypoglycemia Discontinue to insulin treatment Start D5 and water at 75 mL per hour. Check glucose every 2 hours. Diabetes type 2 Hold metformin Start subcu insulin once hypoglycemia resolved Hypertension Allow permissive hypertension Hold BP meds GERD Chronic Admitted to inpatient Expected length of stay more than 2 midnights
[2019-11-30 16:29] LABS: Glucose,Whole Blood 61 mg/dL (75-99)
[2019-11-30] MEDS ORDERED: DEXTROSE 5%-0.45% NACL 1,000 ML IV SCH ×2 (16:30→18:15)
[2019-11-30] MEDS: ASPIRIN 325 MG TAB PO SCH (16:39)
[2019-11-30 18:24] LABS: Glucose,Whole Blood 77 mg/dL (75-99)
[2019-11-30] MEDS: DEXTROSE 5%-0.45% NACL 1,000 ML IV SCH (18:46)
[2019-11-30 19:55] LABS: Glucose,Whole Blood 105 mg/dL (75-99)
--- NOTE | 2019-11-30 20:19 | CT ---
EXAMINATION TYPE: CT angio head neck DATE OF EXAM: 11/30/2019 COMPARISON: None HISTORY: Weakness, dizziness CT DLP: 661.2 mGycm Automated exposure control for dose reduction was used. CONTRAST: Performed with IV Contrast, patient injected with 65 mL of Isovue 370. There are 3-D post processed images. Ascending aorta measures 3.8 cm. There is no evidence of dissection. There is normal branching patter n of the great vessels on the aortic arch. There is bilateral arterial flow in the subclavian arterie s. There is arterial flow in the common internal and external carotid arteries bilaterally. There is significant plaque formation at the carotid artery bifurcations. There is unfortunately motion artifa ct and carotid artery bifurcations are somewhat obscured. There could BE at least 50% stenosis at the origins of both internal carotid arteries. I see no evidence of carotid or vertebral artery aneurysm or dissection. There is bilateral arterial flow in the vertebral arteries. There is arterial flow in the anterior middle and posterior cerebral arteries. There is arterial flow in the vertebrobasilar artery system. I see no evidence of intracranial aneurysm or neovascularity. There is no mass effect. There is no evidence of intracranial arterial stenosis. There is normal cont rast opacification of the venous sinuses. IMPRESSION: Moderate calcification at the carotid artery bifurcations. Motion artifact. There is probably 50% deloris nosis at the origins of both internal carotid arteries. Ultrasound or repeat limited CT angiogram is recommended to be definitive about the degree of stenosis at the carotid artery bifurcations. No angiographic intracranial abnormality.
[2019-11-30 22:38] LABS: Glucose,Whole Blood 73 mg/dL (75-99)
[2019-11-30] MEDS: amLODIPine 10 MG TAB PO SCH (23:10)
[2019-12-01 00:38] LABS: Glucose,Whole Blood 103 mg/dL (75-99)
[2019-12-01 02:09] LABS: Glucose,Whole Blood 137 mg/dL (75-99)
[2019-12-01] MEDS: DEXTROSE 5%-0.45% NACL 1,000 ML IV SCH (03:27)
[2019-12-01 04:20] LABS: Glucose,Whole Blood 180 mg/dL (75-99)
[2019-12-01 06:10] LABS: Glucose,Whole Blood 224 mg/dL (75-99)
[2019-12-01 07:54] LABS: Glucose,Whole Blood 376 mg/dL (75-99)
[2019-12-01] MEDS: VITAMIN E (DL,TOCOPHERYL ACET) 400 UNIT CAP PO SCH (08:02)
[2019-12-01] MEDS: PANTOPRAZOLE 40 MG TABLET PO SCH (08:03)
[2019-12-01] MEDS: ASPIRIN 325 MG TAB PO SCH (08:03)
[2019-12-01] MEDS: CHOLECALCIFEROL 1,000 UNIT TAB PO SCH (08:03)
[2019-12-01] MEDS: LORATADINE 10 MG TAB PO SCH (08:03)
--- NOTE | 2019-12-01 08:50 | ECHOF ---
Referral Reason:Stroke MEASUREMENTS -------- HEIGHT: 175.3 cm WEIGHT: 99.8 kg BP: 148/67 RVIDd: 4.1 cm (< 3.3) IVSd: 1.3 cm (0.6 - 1.1) LVIDd: 4.9 cm (3.9 - 5.3) LVPWd: 1.3 cm (0.6 - 1.1) IVSs: 1.9 cm LVIDs: 3.6 cm LVPWs: 1.8 cm LA Diam: 3.8 cm (2.7 - 3.8) LAESV Index (A-L): 21.30 ml/m Ao Diam: 4.3 cm (2.0 - 3.7) AV Cusp: 1.2 cm (1.5 - 2.6) MV EXCURSION: 7.419 mm (> 18.000) MV EF SLOPE: 16 mm/s (70 - 150) EPSS: 1.6 cm MV E Drew: 0.95 m/s MV DecT: 269 ms MV A Drew: 1.34 m/s MV E/A Ratio: 0.71 AV maxP.81 mmHg AV meanP.05 mmHg RAP: 5.00 mmHg RVSP: 29.63 mmHg FINDINGS -------- This was a technically adequate study. The left ventricular size is normal. There is mild concentric left ventricular hypertrophy. Overa ll left ventricular systolic function is mild-moderately impaired with, an EF between 40 - 45 %. The right ventricle is moderately enlarged. Normal LA size by volume 22+/-6 ml/m2. The right atrium is normal in size. Interatrial and interventricular septum intact. There is mild aortic valve sclerosis. There is mild aortic stenosis present. Peak/mean gradient a cross the Aortic Valve is 18.81mmHg / 9.05mmHg. Mild mitral annular calcification present. Mild mitral regurgitation is present. Mild tricuspid regurgitation present. Right ventricular systolic pressure is normal at < 35 mmHg. Trace/mild (physiologic) pulmonic regurgitation. The aortic root is dilated measuring 4.3cm. IVC Not well visulized. There is no pericardial effusion. CONCLUSIONS -------- 1. This was a technically adequate study. 2. The left ventricular size is normal. 3. There is mild concentric left ventricular hypertrophy. 4. Overall left ventricular systolic function is mild-moderately impaired with, an EF between 40 - 45 %. 5. The right ventricle is moderately enlarged. 6. Normal LA size by volume 22+/-6 ml/m2. 7. The right atrium is normal in size. 8. Interatrial and interventricular septum intact. 9. There is mild aortic valve sclerosis. 10. There is mild aortic stenosis present. 11. Peak/mean gradient across the Aortic Valve is 18.81mmHg / 9.05mmHg. 12. Mild mitral annular calcification present. 13. Mild mitral regurgitation is present. 14. Mild tricuspid regurgitation present. 15. Right ventricular systolic pressure is normal at < 35 mmHg. 16. Trace/mild (physiologic) pulmonic regurgitation. 17. The aortic root is dilated measuring 4.3cm. 18. IVC Not well visulized. 19. There is no pericardial effusion. [employer]: Tomeka Mays RDCS
[2019-12-01 08:55] LABS: Basophils # (A) 0.1 k/uL (0-0.2); Basophils % (A) 1 %; Eosinophils # (A) 0.1 k/uL (0-0.7); Eosinophils % (A) 2 %; HCT 45.5 % (39.0-53.0); HGB 14.5 gm/dL (13.0-17.5); Lymphocytes # (A) 1.5 k/uL (1.0-4.8); Lymphocytes % (A) 23 %; MCH 28.7 pg (25.0-35.0); MCHC 31.8 g/dL (31.0-37.0); MCV 90.2 fL (80.0-100.0); Mean Platelet Volume 8.1; Monocytes # (A) 0.4 k/uL (0-1.0); Monocytes % (A) 6 %; Neutrophils # (A) 4.4 k/uL (1.3-7.7); Neutrophils % (A) 67 %; Platelet Count 288 k/uL (150-450); RBC 5.05 m/uL (4.30-5.90); WBC 6.6 k/uL (3.8-10.6)
[2019-12-01] MEDS ORDERED: NON FORMULARY DRUG (Omega-3 Fatty Acids/Fish Oil [Fish Oil 1,000 Mg Softgel] 1 CAP) PO SCH (09:00)
[2019-12-01] MEDS ORDERED: INSULN ASP PRT/INSULIN ASPART 100 UNIT/ML 10 ML VIAL SQ SCH ×2 (09:00→21:00)
[2019-12-01 09:14] LABS: ALT 18 U/L (4-49); AST 31 U/L (17-59); African American GFR (CKD) >90 (>60 ml/min/1.73 sqM); Albumin 3.9 g/dL (3.5-5.0); Alkaline Phosphatase 64 U/L (38-126); Anion Gap 7 mmol/L; Blood Urea Nitrogen 11 mg/dL (9-20); Calcium 9.6 mg/dL (8.4-10.2); Carbon Dioxide 28 mmol/L (22-30); Chloride 97 mmol/L (98-107); Cholesterol 194 mg/dL (<200); Glucose 265 mg/dL (74-99); HDL Cholesterol 50 mg/dL (40-60); LDL Cholesterol,Calculated 123 mg/dL (0-99); Non-African American GFR(CKD) >90 (>60 ml/min/1.73 sqM); Potassium 4.7 mmol/L (3.5-5.1); Sodium 132 mmol/L (137-145); Total Protein 6.9 g/dL (6.3-8.2); Triglycerides 103 mg/dL (<150)
[2019-12-01 10:09] LABS: Glucose,Whole Blood 271 mg/dL (75-99)
--- NOTE | 2019-12-01 10:17 | US ---
EXAMINATION TYPE: US carotid duplex BILAT DATE OF EXAM: 12/01/2019 COMPARISON: NONE CLINICAL HISTORY: assess stenosis. stenosis EXAM MEASUREMENTS: RIGHT: Peak Systolic Velocity (PSV) cm/sec ----- Right CCA: 61.0 ----- Right ICA: 74.1 ----- Right ECA: 121.0 ICA/CCA ratio: 1.2 RIGHT: End Diastole cm/sec ----- Right CCA: 7.8 ----- Right ICA: 12.1 ----- Right ECA: 9.5 LEFT: Peak Systolic Velocity (PSV) cm/sec ----- Left CCA: 68.0 ----- Left ICA: 74.1 ----- Left ECA: 114.5 ICA/CCA ratio: 1.1 LEFT: End Diastole cm/sec ----- Left CCA: 10.4 ----- Left ICA: 19.1 ----- Left ECA: 11.1 VERTEBRALS (direction of flow): Right Vertebral: Antegrade Left Vertebral: Antegrade Rhythm: Normal Moderate plaque bilateral bifurcations. Intimal thickening is evident. No evidence of increased veloc ities. IMPRESSION: Atheromatous plaquing and intimal thickening without significant flow-limiting stenosis. Criteria for Assigning % of Stenosis / Diameter reduction (Estimation based on the indirect measurements of the internal carotid artery velocities (ICA PSV). 1. Normal (no stenosis)=ICA PSV < 125 cm/s: ratio < 2.0: ICA EDV<40 cm/s. 2. Less than 50% stenosis=ICA PSV < 125 cm/s: ratio < 2.0: ICA EDV<40 cm/s. 3. 50 to 69% stenosis=ICA PSV of 125 to 230 cm/s: ration 2.0 ? 4.0: ICA EDV 40-100 cm/s. 4. Greater than 70% stenosis to near occlusion= ICA PSV > 230 cm/s: ratio > 4.0: ICA EDV > 100 cm/s. 5. Near occlusion= ICA PSV velocities may be low or undetectable: variable ratio and ICA EDV. 6. Total occlusion=unable to detect flow.
--- NOTE | 2019-12-01 11:21 | MR ---
EXAMINATION TYPE: MR brain wo con DATE OF EXAM: 12/01/2019 COMPARISON: CT brain 11/30/2019 HISTORY: Stroke like symptoms, Confusion CONTRAST: Performed utilizing 0 mL intravenous Gadavist gadolinium contrast. TECHNIQUE: Multiplanar, multiecho imaging on a 3.0 Shawanda magnet is performed through the brain. Stud y is not performed within 24 hours of arrival to the hospital. The craniovertebral junction is normal. The pituitary is normal. Diffusion-weighted imaging is performed. There is a focal hyperintensity within the posterior limb i nternal capsule left basal ganglion compatible with an acute lacunar infarct. Some mild subtle hyperi ntensities within the posterior corpus callosum both left and right of midline. Very minimal cortical white matter change may be present in the left occipital vertex. Series 305 image 200 Chronic appearing white matter ischemic type changes appear to be present within the brainstem and in the periventricular white matter. Ventricles and sulci are appropriate for the patient age. There is a left cerebellar pontine angle mass extending into the internal auditory canal. Some mild e xpansion may be present. This area measures 2.1 x 1.3 cm in the cerebellar pontine angle and is suspi cious for large acoustic neuroma. Additional workup with contrast and dedicated images through the in ternal auditory canal are recommended. IMPRESSIONS: 1. Acute ischemic changes within the left basal ganglion, posterior corpus callosum left and right of midline, and within the cortex of the left occipital vertex. 2. Chronic appearing white matter ischemic changes discussed above. 3. 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
[2019-12-01 11:42] LABS: Glucose,Whole Blood 170 mg/dL (75-99)
[2019-12-01 14:20] LABS: Glucose,Whole Blood 63 mg/dL (75-99)
[2019-12-01 14:29] LABS: Glucose,Whole Blood 55 mg/dL (75-99)
[2019-12-01 14:49] LABS: Glucose,Whole Blood 49 mg/dL (75-99)
--- NOTE | 2019-12-01 14:51 | P.PN ---
Subjective Progress Note Date: 12/01/19 Principal diagnosis: Imbalance patient still requiring 1-2 persons assist to get out of bed. He still having significant imbalance. No dizziness. No blurry or double vision. No focal weakness or numbness. Objective - Vital Signs Vital signs: Vital Signs Temp 97.8 F 12/01/19 11:55 Pulse 71 12/01/19 11:55 Resp 18 12/01/19 11:55 BP 135/84 12/01/19 11:55 Pulse Ox 97 12/01/19 11:55 Intake & Output 11/30/19 12/01/19 12/01/19 18:59 06:59 18:59 Intake Total 100 Output Total 800 Balance -700 Weight 99.79 kg 99.79 kg Intake: Oral 100 Output: Urine 800 Other: Voiding Method Urinal Urinal # Voids 0 - Exam Constitutional: No acute distress, conversant, pleasant Eyes:Anicteric sclerae, moist conjunctiva, no lid-lag, PERRLA, ENMT: Oropharynx clear, no erythema, exudates Neck: Supple, FROM, no masses, or JVD, No carotid bruits, No thyromegaly Lungs: Clear to auscultation, Clear to percussion, Normal respiratory effort, no accessory muscle use Cardiovascular: Heart regular in rate and rhythm, No murmurs, gallops, or rubs, No peripheral edema Abdominal: Soft, Nontender, no guarding, rebound or rigidity, Normoactive bowel sounds, No hepatomegaly, No splenomegaly, No palpable mass Skin: Normal temperature, tone, texture, turgor, no induration, No subcutaneous nodules, No rash, lesions, No ulcers Extremities: No digital cyanosis, No clubbing, Pedal pulses intact and symmetrical, Radial pulses intact and symmetrical, No calf tenderness Psychiatric: Alert and oriented to person, place and time, appropriate affect, intact judgement Neuro: Muscles Strength 5/5 in all 4 extremities, Sensation to light touch grossly present throughout, Cranial nerves II-XII grossly intact, no focal sensory deficits - Labs CBC & Chem 7: 12/01/19 07:27 12/01/19 07:27 Labs: Abnormal Lab Results - Last 24 Hours (Table) 11/30/19 11/30/19 11/30/19 Range/Units 15:14 16:26 19:53 Sodium (137-145) mmol/L Chloride (98-107) mmol/L Glucose (74-99) mg/dL POC Glucose (mg/dL) 74 L 61 L 105 H (75-99) mg/dL LDL Cholesterol, Calc (0-99) mg/dL 11/30/19 12/01/19 12/01/19 Range/Units 22:36 00:19 02:05 Sodium (137-145) mmol/L Chloride (98-107) mmol/L Glucose (74-99) mg/dL POC Glucose (mg/dL) 73 L 103 H 137 H (75-99) mg/dL LDL Cholesterol, Calc (0-99) mg/dL 12/01/19 12/01/19 12/01/19 Range/Units 04:19 06:07 07:27 Sodium 132 L (137-145) mmol/L Chloride 97 L (98-107) mmol/L Glucose 265 H (74-99) mg/dL POC Glucose (mg/dL) 180 H 224 H (75-99) mg/dL LDL Cholesterol, Calc 123 H (0-99) mg/dL 12/01/19 12/01/19 12/01/19 Range/Units 07:52 10:08 11:40 Sodium (137-145) mmol/L Chloride (98-107) mmol/L Glucose (74-99) mg/dL POC Glucose (mg/dL) 376 H 271 H 170 H (75-99) mg/dL LDL Cholesterol, Calc (0-99) mg/dL 12/01/19 12/01/19 Range/Units 14:09 14:28 Sodium (137-145) mmol/L Chloride (98-107) mmol/L Glucose (74-99) mg/dL POC Glucose (mg/dL) 63 L 55 L (75-99) mg/dL LDL Cholesterol, Calc (0-99) mg/dL Assessment and Plan Plan: Acute occipital CVA Continue aspirin 325 mg by mouth daily 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
[2019-12-01] MEDS ORDERED: DEXTROSE 50% SYRINGE 50 ML IVP ONE (14:57)
[2019-12-01] MEDS ORDERED: DEXTROSE 50% SYRINGE 50 ML IVP STA (15:00)
[2019-12-01] MEDS: ATORVASTATIN 40 MG TAB PO SCH (15:08)
[2019-12-01 15:21] LABS: Glucose,Whole Blood 161 mg/dL (75-99)
[2019-12-01] MEDS: INSULIN ASPART (NovoLOG) 100 UNIT/ML VIAL SQ SCH ×2 (17:19→20:36)
[2019-12-01 19:51] LABS: Glucose,Whole Blood 143 mg/dL (75-99)
[2019-12-01] MEDS: amLODIPine 10 MG TAB PO SCH (21:21)
[2019-12-01 22:04] LABS: Glucose,Whole Blood 140 mg/dL (75-99)
[2019-12-02 03:45] LABS: Glucose,Whole Blood 110 mg/dL (75-99)
--- NOTE | 2019-12-02 03:45 | CONS ---
CONSULTATION DATE OF DICTATION: 12/01/2019. HISTORY OF PRESENT ILLNESS: Thank you for allowing me to evaluate Marcos Perez who is a 73-year-old right- handed white male who presented to [facility] on 11/30/2019 for evaluation of reported altered mental status and hypoglycemia. Apparently EMS was called and the patient's initial blood sugar was 48 and even despite drinking juice, in the emergency room was as low as 52. The patient states he has also noted issues with his right upper extremity where it felt somewhat weak and was doing things out of his control. He denied weakness or numbness involving the right side of the face or the right lower extremity. The left side is asymptomatic. The patient had no associated vertigo, diplopia, dysarthria, or difficulty chewing/swallowing. He denies previous history of stroke or seizure. He was not taking aspirin or other anti-platelet/anticoagulant medication at the time of this event. At this time, the patient states the right upper extremity is "getting better". The patient reports a history of left ear deafness, although states he is not aware of the cause of this. On MRI of the brain completed for evaluation of possible stroke, the patient was noted to have a 2.1 x 1.3 cm left cerebellar pontine angle mass, suspected to represent a large acoustic neuroma. ALLERGIES: SULFA and PENICILLIN. HOME MEDICATIONS: Metformin, Norvasc, vitamin E, omeprazole, omega-3, Claritin, NovoLog and vitamin D. PAST MEDICAL HISTORY: Hypertension, diabetes mellitus x30 years, obesity, GERD, asthma, and left ear deafness. PAST SURGICAL HISTORY: Umbilical hernia repair and bilateral retinal detachment surgery. SOCIAL HISTORY: The patient quit smoking many years ago according to him and denied alcohol consumption or illicit drug use. He is with one child and lives in a house with his sister. He occasionally ambulates with a 4-prong cane. FAMILY HISTORY: Patient's parents are , which he states was of natural causes. REVIEW OF SYSTEMS: Fourteen systems are reviewed and no additional points were identified compared to the review of systems documented in history and physical. PHYSICAL EXAMINATION: Upon my arrival to the patient's room, he was lying in bed, receptive to the examiner. Affect is normal. He is obese, deconditioned, a fair historian at best and appears of stated age. Throughout the course of the evaluation, the right upper extremity was assuming unusual postures. 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 VITAL SIGNS: Blood pressure is 147/76 with a pulse of 72, respiratory rate 18, temperature is 98.1, weight is 99.7 kg on a 5 foot 9 inch frame. SKIN AND EXTREMITIES: Chronic skin changes are noted in the distal lower extremities. HEAD AND NECK: No tenderness or signs of trauma. Neck is supple without meningeal signs. Arteries are nontender and without bruits. HEART: Regular rate and rhythm. HIGHER CORTICAL FUNCTION: MENTAL STATUS: Patient was alert, oriented to self. He knew he was at [facility]. He knew the floor, year, month and could name the current president. He was able to name, repeat and read. There was no right and left disorientation, finger-nose extinction to double simultaneous stimulation or dysarthria. Speech was fluent and followed commands readily. CRANIAL NERVES II THROUGH XII: Pupils are equal and reactive to light symmetrically. No afferent pupillary defect. Visual shelton are intact to confrontation. III, IV, : No ptosis. Extraocular movements are full. No nystagmus. V: Pinprick, light touch intact in all 3 divisions. Motor 5 intact. VII: No facial asymmetry or weakness. Acuity intact on the right and the patient is deaf on the left. IX, X: Palate eduardo in the midline. XI: Trapezius strength intact. XII: Tongue protruded midline without fasciculation or atrophy. MOTOR EXAMINATION: There is no pronator drift. Normal bulk and tone are noted in all major muscle groups with alien limb phenomenon as described above noted involving the right upper extremity. Despite this, the patient was able to follow most formal muscle strength tests with strength of 5/5 throughout except at the interossei which are 4+/5 bilaterally. SENSORY: Intact to pinprick and light touch in all extremities. REFLEXES: Patient is areflexic throughout. Plantar responses extensor on the right and flexor on the left. Hannah's is absent. COORDINATION: With the superimposed alien limb phenomenon involving the right upper extremity, the patient made somewhat ataxic movements when attempting right finger-to- nose. These were intact on the left. Rrlm-[id number] are intact bilaterally. Rapid alternating movements are symmetric with finger tapping. DIAGNOSTIC TESTING: The patient had a CT scan of brain without contrast in the emergency room, which demonstrated an old right occipital infarct. Subsequent MRI of the brain confirmed the presence of a left thalamic, left occipital and corpus callosum acute infarcts as well as the left CP angle mass as described above. CTA of the head/neck vessels demonstrated no aneurysm, branch occlusion and the vertebrobasilar system was reported to be unrevealing. The carotid bifurcation was difficult to assess due to motion artifact and as a result, patient had a carotid ultrasound which demonstrated no significant stenosis on either side and antegrade flow in the vertebral arteries. Transthoracic echocardiogram demonstrated mild LVH with ejection fraction of 40% to 45% and interatrial septum was intact. LAB WORK: Lab work demonstrates a white blood count of 6.6 with a hemoglobin of 14.5, platelet count 288. Sodium 134, potassium 4.3. BUN 14 with a creatinine of 0.69. INR 1.0. Hemoglobin A1c 8.0. Calcium 9.9, magnesium 1.7. ALT 17, AST 27. Ammonia level was less than 9. Troponin negative. Cholesterol 194 with an LDL of 123, HDL of 50. Coronavirus negative. IMPRESSION: 1. Acute left thalamic/occipital and corpus callosum infarcts, etiology may be secondary to cardioembolic phenomenon as CTA of the head/neck vessels demonstrated no vertebrobasilar abnormality and carotid ultrasound demonstrated antegrade flow in the vertebral arteries bilaterally. 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 Risk factors for stroke include hypertension, diabetes mellitus, obesity, previous stroke (by imaging) male sex and age. The patient was not on aspirin or other anti-platelet/anticoagulant medication at the time of this event. 2. 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 3. Old right occipital infarct on imaging. 4. Left ventricular dysfunction with ejection fraction of 40% to 45% on echocardiogram. 5. Medical problems including gastroesophageal reflux disease and asthma. RECOMMENDATION: 1. I discussed my impression and plan with the patient and he expressed understanding. 2. For further evaluation, we will pursue transesophageal echocardiogram and the patient is maintained on telemetry. If the workup is unrevealing, would suggest the patient be discharged with an event monitor. Carotid ultrasound demonstrated no significant stenosis of either internal carotid artery. 3. MRI of the internal auditory canals with and without contrast for further evaluation of the left CP angle mass. 4. Physical and occupational therapy evaluation and treatment. 5. Risk factor modification, would recommend weight loss and regular exercise program to tolerance. 6. Avoid hypotension/hyperglycemia. 7. Agree with aspirin for now and the patient is maintained on Lipitor. 8. Will follow with you. Thank you for allowing me to participate in the care of your patient. MMJENNYL / CONOR: [id number] / MTDAgatha
[2019-12-02 03:46] LABS: Glucose,Whole Blood 130 mg/dL (75-99)
[2019-12-02 04:09] LABS: Glucose,Whole Blood 143 mg/dL (75-99)
[2019-12-02 06:19] LABS: Glucose,Whole Blood 166 mg/dL (75-99)
[2019-12-02] MEDS: INSULIN ASPART (NovoLOG) 100 UNIT/ML VIAL SQ SCH ×4 (06:30→20:28)
[2019-12-02] MEDS: PANTOPRAZOLE 40 MG TABLET PO SCH (06:35)
[2019-12-02 06:36] LABS: Basophils # (A) 0.1 k/uL (0-0.2); Basophils % (A) 1 %; Eosinophils # (A) 0.3 k/uL (0-0.7); Eosinophils % (A) 4 %; HCT 47.2 % (39.0-53.0); Lymphocytes # (A) 2.7 k/uL (1.0-4.8); Lymphocytes % (A) 34 %; MCH 28.6 pg (25.0-35.0); MCHC 31.7 g/dL (31.0-37.0); MCV 90.2 fL (80.0-100.0); Mean Platelet Volume 7.9; Monocytes # (A) 0.4 k/uL (0-1.0); Monocytes % (A) 6 %; Neutrophils # (A) 4.2 k/uL (1.3-7.7); Neutrophils % (A) 54 %; Platelet Count 326 k/uL (150-450); RBC 5.24 m/uL (4.30-5.90); RDW 14.1 % (11.5-15.5); WBC 7.9 k/uL (3.8-10.6)
[2019-12-02 07:09] LABS: ALT 20 U/L (4-49); AST 30 U/L (17-59); African American GFR (CKD) >90 (>60 ml/min/1.73 sqM); Alkaline Phosphatase 71 U/L (38-126); Anion Gap 9 mmol/L; Blood Urea Nitrogen 11 mg/dL (9-20); Calcium 9.8 mg/dL (8.4-10.2); Carbon Dioxide 30 mmol/L (22-30); Chloride 97 mmol/L (98-107); Glucose 169 mg/dL (74-99); Magnesium 1.8 mg/dL (1.6-2.3); Non-African American GFR(CKD) >90 (>60 ml/min/1.73 sqM); Phosphorus 4.1 mg/dL (2.5-4.5); Potassium 4.5 mmol/L (3.5-5.1); Sodium 136 mmol/L (137-145); Total Bilirubin 1.4 mg/dL (0.2-1.3); Total Protein 7.2 g/dL (6.3-8.2)
[2019-12-02] MEDS: ASPIRIN 325 MG TAB PO SCH (07:53)
[2019-12-02] MEDS: ATORVASTATIN 40 MG TAB PO SCH (07:53)
[2019-12-02] MEDS: VITAMIN E (DL,TOCOPHERYL ACET) 400 UNIT CAP PO SCH (07:53)
[2019-12-02] MEDS: LORATADINE 10 MG TAB PO SCH (07:53)
[2019-12-02] MEDS: CHOLECALCIFEROL 1,000 UNIT TAB PO SCH (07:53)
[2019-12-02 07:54] LABS: Glucose,Whole Blood 195 mg/dL (75-99)
[2019-12-02] MEDS: METOPROLOL TARTRATE 25 MG TAB PO SCH ×2 (09:46→20:27)
[2019-12-02] MEDS: LISINOPRIL 5 MG TAB PO SCH ×2 (09:46→20:27)
[2019-12-02 10:09] LABS: Glucose,Whole Blood 270 mg/dL (75-99)
--- NOTE | 2019-12-02 11:38 | PN ---
PROGRESS NOTE Mr. Perez is a 73-year-old male who presented with evidence of a right upper extremity weakness as well as inability to control it. He also was noted to be hypoglycemic. He continues to have some difficulty controlling his right upper extremity. He has no prior cardiac history. He denies any speech disturbance. He denies any numbness. He had no vertigo, diplopia, or dysarthria. The patient has no prior cardiac history. He is not active physically. He has a history of left ear deafness. Cardiology consultation was requested for transesophageal echocardiogram. The patient denies any prior history of cardiac disease. Denies any history of myocardial infarction or congestive heart failure. He denies any chest pain, his breathing has been stable. He denies any dizziness, palpitation He denies any syncope. He underwent an echocardiogram yesterday that was reported showing an ejection fraction of 40% to 45% with no reported segmental wall motion abnormality. He had mild mitral and tricuspid regurgitation with no evidence of pulmonary hypertension. His coronary risk factors are remarkable for hypertension and hyperlipidemia. He is nonsmoker, nondiabetic, and he is not SI. His coronary risk factor is remarkable for hypertension and diabetes. He is not a smoker. His medications include vitamin D, insulin, loratadine, omeprazole 20 mg daily, amlodipine 10 mg daily, and metformin 500 mg twice a day. REVIEW OF SYSTEMS: RESPIRATORY SYSTEM: He denies any recent cough or fever. No wheezing. GI SYSTEM: Denies any GI bleeding. No peptic ulcer disease. SYSTEM: No dysuria or hematuria. NERVOUS SYSTEM: He denies any prior history of stroke. PHYSICAL EXAMINATION: He is a 73-year-old male, alert, oriented, in no apparent distress. Blood pressure running in the 140-1 60s with a heart rate in 60s. HEAD: Normocephalic eyes sclerae nonicteric. NECK: Good upstroke, no bruits, no jugular venous distention. LUNGS: Clear to auscultation. HEART: Regular rate and rhythm, S1, S2. No S3. No rub or gallop. ABDOMEN: Soft, nontender, positive bowel sounds, no organomegaly. EXTREMITIES: No edema. LAB DATA: Revealed a BUN and creatinine of 11 and 0.7, potassium 4.5, bilirubin 1.4, AST of 30, ALT of 20, troponin of less than 0.012. His cholesterol is 194, LDL of 123. On the monitor, he is in sinus mechanism with no evidence of atrial fibrillation. His EKG revealed sinus mechanism, normal axis and intervals with evidence left ventricular hypertrophy. His chest x-ray shows elevated right amy nephrogram. His carotid duplex scan revealed no evidence of high-grade stenosis. Brain MRI revealed acute ischemic change in the left basal ganglia, in the posterior corpus callosum with possible acoustic neuroma in the left cerebral pontine angle. IMPRESSION: 1. Evidence suggestive of a CVA. Source unclear. 2. Hypertension. 3. Diabetes. 4. Hyperlipidemia. 5. Cardiomyopathy of unclear etiology or duration. RECOMMENDATION: From the cardiac standpoint, I will stop his amlodipine, start him on an MINNA inhibitor and beta sarah. I will proceed with transesophageal echocardiogram to rule out any cardiac source for his neurological event. If there is no abnormalities, then as an outpatient, I will obtain an event monitor. I have discussed those findings with the patient. Thank you for this consult. Will follow with you. ROSARIO / IJN: [id number] / MTDD
[2019-12-02 11:54] LABS: Glucose,Whole Blood 276 mg/dL (75-99)
--- NOTE | 2019-12-02 13:32 | MR ---
EXAMINATION TYPE: MR iac wo/w con DATE OF EXAM: 12/02/2019 COMPARISON: MRI brain 12/01/2019 HISTORY: Deafness in left ear, left CPA mass CONTRAST: Performed utilizing 10 mL intravenous Gadavist gadolinium contrast. TECHNIQUE: Multiplanar, multiecho imaging on a 3.0 Shawanda magnet is performed through the brain. Atte ntion is paid to the internal auditory canals with thin section imaging. Postcontrast imaging is per formed through the internal auditory canals. FINDINGS:Craniovertebral junction is normal. The pituitary is normal. Diffusion-weighted imaging is performed. No suspicious hyperintensity is present to suggest an acute intracranial infarct or acute ischemic area. Signal within the brain has scattered areas of hyperintensity which are non-specific but could be rel ated to microvascular ischemic changes.. Thin section imaging is performed through the internal auditory canals and cerebellar pontine angles. Within the left cerebellar pontine angle is a mass which has extension into the internal auditory ca nal. A acoustic neuroma is present measuring 1.9 cm x 1.7 x 1.7 cm. There is expansion of the left in ternal auditory canal. This enhances. There is mild mass effect on the adjacent brainstem. No edema o f the brain stem is evident. The right internal auditory canal is normal without expansion or erosion. No right enhancement or cer ebellar pontine angle masses are evident. Periventricular white matter changes are present. Some brainstem ischemic change is present. On diffusion weighted imaging the hyperintensity within the left basal ganglion as well as the left a nd right changes within the posterior corpus callosum are again evident. Postcontrast imaging was performed. No suspicious enhancement be on the left acoustic neuroma is ev ident within the [id number]. IMPRESSIONS: 1. Acoustic neuroma left internal auditory canal with expansion into the left cerebellar pontine angl e. This has mild mass effect on the adjacent brain. 2. Acute ischemic changes within the left basal ganglion within the posterior corpus callosum region
--- NOTE | 2019-12-02 13:41 | P.PN ---
Subjective Progress Note Date: 12/02/19 Principal diagnosis: Imbalance Patient is doing better, no focal weakness. His right arm twitching has improved. No headaches. No fevers or chills. No cough, shortness of breath or chest pain. No palpitations. Objective - Vital Signs Vital signs: Vital Signs Temp 97.9 F 12/02/19 12:00 Pulse 63 12/02/19 12:00 Resp 18 12/02/19 12:00 BP 138/79 12/02/19 12:00 Pulse Ox 98 12/02/19 12:00 Intake & Output 12/01/19 12/02/19 12/02/19 18:59 06:59 18:59 Intake Total 240 0 240 Output Total 392 937 1594 Balance -385 450 -835 Weight 97.5 kg Intake: Oral 240 0 240 Output: Urine 211 245 7492 Other: Voiding Method Urinal Urinal Urinal # Voids 0 - Exam Constitutional: No acute distress, conversant, pleasant Eyes:Anicteric sclerae, moist conjunctiva, no lid-lag, PERRLA, ENMT: Oropharynx clear, no erythema, exudates Neck: Supple, FROM, no masses, or JVD, No carotid bruits, No thyromegaly Lungs: Clear to auscultation, Clear to percussion, Normal respiratory effort, no accessory muscle use Cardiovascular: Heart regular in rate and rhythm, No murmurs, gallops, or rubs, No peripheral edema Abdominal: Soft, Nontender, no guarding, rebound or rigidity, Normoactive bowel sounds, No hepatomegaly, No splenomegaly, No palpable mass Skin: Normal temperature, tone, texture, turgor, no induration, No subcutaneous nodules, No rash, lesions, No ulcers Extremities: No digital cyanosis, No clubbing, Pedal pulses intact and symmetrical, Radial pulses intact and symmetrical, No calf tenderness Psychiatric: Alert and oriented to person, place and time, appropriate affect, intact judgement Neuro: Muscles Strength 5/5 in all 4 extremities, Sensation to light touch grossly present throughout, Cranial nerves II-XII grossly intact, no focal sensory deficits - Labs CBC & Chem 7: 12/02/19 05:56 12/02/19 05:56 Labs: Abnormal Lab Results - Last 24 Hours (Table) 12/01/19 12/01/19 12/01/19 Range/Units 07:27 14:09 14:28 Sodium (137-145) mmol/L Chloride (98-107) mmol/L Glucose (74-99) mg/dL POC Glucose (mg/dL) 63 L 55 L (75-99) mg/dL Hemoglobin A1c 8.0 H (4.0-6.0) % Total Bilirubin (0.2-1.3) mg/dL 12/01/19 12/01/19 12/01/19 Range/Units 14:48 15:20 19:49 Sodium (137-145) mmol/L Chloride (98-107) mmol/L Glucose (74-99) mg/dL POC Glucose (mg/dL) 49 L 161 H 143 H (75-99) mg/dL Hemoglobin A1c (4.0-6.0) % Total Bilirubin (0.2-1.3) mg/dL 12/01/19 12/01/19 12/02/19 Range/Units 22:01 23:58 02:08 Sodium (137-145) mmol/L Chloride (98-107) mmol/L Glucose (74-99) mg/dL POC Glucose (mg/dL) 140 H 110 H 130 H (75-99) mg/dL Hemoglobin A1c (4.0-6.0) % Total Bilirubin (0.2-1.3) mg/dL 12/02/19 12/02/19 12/02/19 Range/Units 04:07 05:56 06:17 Sodium 136 L (137-145) mmol/L Chloride 97 L (98-107) mmol/L Glucose 169 H (74-99) mg/dL POC Glucose (mg/dL) 143 H 166 H (75-99) mg/dL Hemoglobin A1c (4.0-6.0) % Total Bilirubin 1.4 H (0.2-1.3) mg/dL 12/02/19 12/02/19 12/02/19 Range/Units 07:53 10:07 11:50 Sodium (137-145) mmol/L Chloride (98-107) mmol/L Glucose (74-99) mg/dL POC Glucose (mg/dL) 195 H 270 H 276 H (75-99) mg/dL Hemoglobin A1c (4.0-6.0) % Total Bilirubin (0.2-1.3) mg/dL Assessment and Plan Plan: Acute occipital CVA Brain MRI showing acute ischemia involving the left basilar ganglia, posterior corpus callosum as well as the left occipital cortex. 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 Lipid profile showing high LDL--started on statin Suspected acoustic neuroma MRI brain showed left cerebellar pontine angle mass with extension into the internal auditory canal Neurology recommended MRI of the left auditory canal, with and without contrast, pending Cardiomyopathy, newly found Electrocardiogram showed ejection fraction 40-45% Seen by cardiology Norvasc discontinued Started on beta sarah and lisinopril Type 2 diabetes Was initially hypoglycemic in the ER, sugars went up on dextrose gtt but when normalized the gtt was held and he was restarted on his home insulin regimen and upon doing that his blood glucose dropped again. Now sugars slightly up Hold metformin Start lantus, continue SSI Awaiting A1c Consider discontinuing NPH upon discharge and permanently switching to lantus Hypertension Allow permissive hypertension Hold BP meds GERD Chronic
[2019-12-02 14:11] LABS: Glucose,Whole Blood 439 mg/dL (75-99)
[2019-12-02 16:18] LABS: Glucose,Whole Blood 315 mg/dL (75-99)
--- NOTE | 2019-12-02 18:34 | PN ---
PROGRESS NOTE DATE OF DICTATION: 12/02/2019 I had the pleasure of re-evaluating this patient, who denies new complaints as compared to yesterday. He currently denies headache, states he ate lunch well, but states he needs to have a bowel movement. CURRENT MEDICATIONS: Tylenol, aspirin 325 mg daily, Lipitor 40 mg daily, cholecalciferol, NovoLog, Levemir, Zestril, Claritin, Lopressor, Protonix and vitamin E. PHYSICAL EXAMINATION: In general, patient is pleasant, a fair historian. Affect is normal. VITAL SIGNS: Blood pressure is 168/88 with a pulse of 64, respiratory rate 18, temperature 97.9. SKIN AND EXTREMITIES: Chronic skin changes are noted in the distal lower extremities. NEUROLOGIC EXAMINATION: The patient is alert and oriented to time, place and person. There was no aphasia or dysarthria. CRANIAL NERVES 2-12 are intact. Motor examination: There is no pronator drift. Bulk and tone are normal in all major muscle groups with the right upper extremity alien limb phenomenon as previously described. Strength is 5/5 throughout except at the interossei, which are 4+ over 5 bilaterally. Sensory intact to light touch in all extremities. Reflexes: Patient is areflexic throughout. Plantar response is extensor on the right and flexor on the left. Hannah's is absent. There is no gross ataxia with hekxpw-af-tjug or etbu-ai-oxlq movements. DIAGNOSTIC TESTING: The patient's lab work demonstrates a white blood cell count of 7.9, hemoglobin of 15.0, platelet count 326. Sodium 136, potassium 4.5, BUN 11 with creatinine 0.7, ALT 20, AST 30. 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 IMPRESSION: 1. 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 Risk factors for stroke include hypertension, diabetes mellitus, obesity, previous stroke (by imaging), male sex and age. 2. 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 3. Old right occipital infarct on imaging. 4. Left ventricular dysfunction with ejection fraction of 45% to 50% per echocardiogram. RECOMMENDATIONS: 1. Cardiology has evaluated the patient and plans to pursue transesophageal echocardiogram tomorrow. If this study is unrevealing, the patient will have an event monitor on an outpatient basis. 2. Risk factor modifications. Would recommend weight loss and regular exercise program to tolerance. 3. Continue aspirin for now, and the patient is maintained on Lipitor. 4. Physical and occupational therapy evaluation and treatment. 5. Suggest outpatient neurosurgical consultation regarding the identified left acoustic neuroma. 6. Please feel free to contact me if there are further questions from a neurologic standpoint. Thank you for allowing me to participate in care of your patient. MMODL / IJN: [id number] / MTDD
[2019-12-02 19:35] LABS: Glucose,Whole Blood 257 mg/dL (75-99)
[2019-12-02 19:54] VITALS: RESP 16
[2019-12-02] MEDS ORDERED: INSULIN DETEMIR (LEVEMIR) 100 UNIT/ML SYR SQ SCH (21:00)
[2019-12-02 21:09] LABS: Glucose,Whole Blood 226 mg/dL (75-99)
[2019-12-02 23:01] LABS: Glucose,Whole Blood 179 mg/dL (75-99)
[2019-12-03 00:54] LABS: Glucose,Whole Blood 180 mg/dL (75-99)
[2019-12-03 03:02] LABS: Glucose,Whole Blood 206 mg/dL (75-99)
[2019-12-03 05:02] LABS: Glucose,Whole Blood 228 mg/dL (75-99)
[2019-12-03] MEDS: PANTOPRAZOLE 40 MG TABLET PO SCH (06:19)
[2019-12-03] MEDS: INSULIN ASPART (NovoLOG) 100 UNIT/ML VIAL SQ SCH ×2 (06:55→13:14)
[2019-12-03 07:00] LABS: Glucose,Whole Blood 215 mg/dL (75-99)
[2019-12-03 07:24] LABS: African American GFR (CKD) >90 (>60 ml/min/1.73 sqM); Anion Gap 7 mmol/L; Blood Urea Nitrogen 21 mg/dL (9-20); Calcium 9.5 mg/dL (8.4-10.2); Carbon Dioxide 27 mmol/L (22-30); Chloride 100 mmol/L (98-107); Glucose 234 mg/dL (74-99); Non-African American GFR(CKD) 87 (>60 ml/min/1.73 sqM); Potassium 4.7 mmol/L (3.5-5.1); Sodium 134 mmol/L (137-145)
[2019-12-03] MEDS ORDERED: fentaNYL (PF) 50 MCG/ML 2 ML AMP ONE (08:08)
[2019-12-03] MEDS: BENZOCAINE SPRAY 1 CAN TOPICAL ONE ×2 (08:25→08:40)
[2019-12-03] MEDS ORDERED: SODIUM CHLORIDE 0.9% 500 ML 500 ML IV ONE (08:28)
[2019-12-03] MEDS: fentaNYL (PF) 50 MCG/ML 2 ML AMP IVP ONE ×2 (08:33→08:42)
[2019-12-03] MEDS: MIDAZOLAM 2 MG/2 ML VIAL IVP ONE ×2 (08:33→08:42)
[2019-12-03] MEDS ORDERED: LISINOPRIL 10 MG TAB PO SCH (09:00)
--- NOTE | 2019-12-03 09:17 | ECHOT ---
TRANSESOPHAGEAL ECHOCARDIOGRAM INDICATION: Evaluation of flat left atrial appendage. PROCEDURE: After explaining the procedure to the patient, its risks and complications, blood pressure, heart rate, O2 saturation was monitored. The throat was sprayed with Cetacaine. He received 2 mg of intravenous Versed, 50 mcg intravenous fentanyl, the probe was introduced esophagus without difficulty, images were obtained. Following that, the probe was removed. There was no immediate complication. FINDINGS: Left atrial size is mildly dilated. Left ventricular size is normal. The overall systolic function appears to be mildly impaired. Ejection fraction 45% to 50%. with no segmental wall motion. The mitral valve is thickened with mitral and calcification. The aortic valve is a tricuspid valve calcified with mild decrease in the opening, the tricuspid valve is normal. Descending thoracic aorta revealed mild atherosclerotic changes. No pericardial effusion was noted. Contrast bubble study revealed no evidence of shunting across the interatrial septum with Valsalva maneuver. Doppler pulse wave and color Doppler obtained and revealed mild to moderate mitral with mild tricuspid regurgitation. There was no shunting by color Doppler study. CONCLUSION: 1. Mild dilated left atrium with normal appearance left atrial appendage. 2. Normal left ventricular size with ejection fraction 45% to 50%. 3. Mild aortic stenosis. 4. Mitral annular calcification with thickening of the mitral valve leaflets with mild to moderate mitral regurgitation. 5. Mild tricuspid regurgitation. 6. Mild atherosclerotic changes of the descending thoracic aorta. 7. No pericardial effusion. 8. No shunting by color Doppler study. MMODL / IJN: [id number] /
--- NOTE | 2019-12-03 10:59 | P.DS ---
Providers Date of admission: 11/30/19 13:41 Expected date of discharge: 12/03/19 Attending physician: Rajiv Stubbs MD Consults: 11/30/19 15:10 Consult Physician Routine Consulting Provider: Kei Vazquez Consult Reason/Comments: remote occipital infarct Do you want consulting provider notified?: Yes 12/01/19 14:54 Consult Physician Routine Consulting Provider: Taryn Reyes Consult Reason/Comments: low EF Do you want consulting provider notified?: Yes Primary care physician: Stated None Hospital Course: This is a 73-year-old male with past medical history noted below who presented to the emergency room with slurred speech, gait imbalance, multiple falls, and low blood glucose. Patient was evaluated in the ER and admitted to the hospital for further management of his medical problems noted below. 1. Acute left thalamic/occipital and corpus callosum infarct, seen and evaluated by neurology. Started on aspirin and Lipitor. Underwent extensive imaging including CT angiogram of the head and neck, carotid Doppler, and MRI of the brain or reviewed by neurology. PT/OT/speech pathology evaluation done. KYLIE showed no intracardiac source. 2. 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 Referral to neurosurgery as outpatient done. 3. Cardiomyopathy, exact etiology unclear. EF noted to be 45-50%. Medical regimen adjusted by cardiology. Plan to follow-up in the office within the next week or 2. 4. Type 2 diabetes, A1c 8.0. Presented with episode of hypoglycemia. Home dose of insulin decreased. Follow-up with PCP as directed. 5. GERD Patient will be discharged home in a stable condition. Home care/PT will be set up. For further details about this hospitalization please refer to the electronic chart. Patient Condition at Discharge: Serious Plan - Discharge Summary Discharge Rx Participant: No New Discharge Prescriptions: New Aspirin 325 mg PO DAILY #30 tab Atorvastatin [Lipitor] 40 mg PO DAILY #60 tab Metoprolol Tartrate [Lopressor] 25 mg PO BID #60 tab Lisinopril [Zestril] 10 mg PO BID #60 tab Continue metFORMIN HCL 500 mg PO BID Omeprazole [PriLOSEC] 20 mg PO AC-BRKFST Cholecalciferol [Vitamin D3 (25 Mcg = 1000 Iu)] 1,000 unit PO DAILY Vitamin E (Dl,Tocopheryl Acet) [Vitamin E] 400 unit PO DAILY [place]-3 Fatty Acids/Fish Oil [Fish Oil 1,000 mg Softgel] 1 cap PO DAILY Changed Insuln Asp Prt/Insulin Aspart [NovoLOG MIX 70-30 VIAL] 50 unit SQ QAM #0 Insuln Asp Prt/Insulin Aspart [NovoLOG MIX 70-30 VIAL] 25 unit SQ HS #0 Discontinued amLODIPine [Norvasc] 10 mg PO HS Loratadine [Claritin] 10 mg PO DAILY Discharge Medication List Omeprazole [PriLOSEC] 20 mg PO AC-BRKFST 01/19/16 [History] metFORMIN HCL 500 mg PO BID 01/19/16 [History] Cholecalciferol [Vitamin D3 (25 Mcg = 1000 Iu)] 1,000 unit PO DAILY 10/31/17 [History] [place]-3 Fatty Acids/Fish Oil [Fish Oil 1,000 mg Softgel] 1 cap PO DAILY 08/10/18 [History] Vitamin E (Dl,Tocopheryl Acet) [Vitamin E] 400 unit PO DAILY 08/10/18 [History] Aspirin 325 mg PO DAILY #30 tab 12/03/19 [Rx] Atorvastatin [Lipitor] 40 mg PO DAILY #60 tab 12/03/19 [Rx] Insuln Asp Prt/Insulin Aspart [NovoLOG MIX 70-30 VIAL] 25 unit SQ HS #0 12/03/19 [Rx] Insuln Asp Prt/Insulin Aspart [NovoLOG MIX 70-30 VIAL] 50 unit SQ QAM #0 12/03/19 [Rx] Lisinopril [Zestril] 10 mg PO BID #60 tab 12/03/19 [Rx] Metoprolol Tartrate [Lopressor] 25 mg PO BID #60 tab 12/03/19 [Rx] Follow up Appointment(s)/Referral(s): Taryn Reyes MD [STAFF PHYSICIAN] - 2 Weeks None,Stated [Primary Care Provider] - 1-2 days Activity/Diet/Wound Care/Special Instructions: Home Care being arranged by [facility] [phone] Discharge Disposition: HOME WITH HOME HEALTH SERVICES
[2019-12-03] MEDS: VITAMIN E (DL,TOCOPHERYL ACET) 400 UNIT CAP PO SCH (11:00)
[2019-12-03] MEDS: ASPIRIN 325 MG TAB PO SCH (11:00)
[2019-12-03] MEDS: ATORVASTATIN 40 MG TAB PO SCH (11:00)
[2019-12-03] MEDS: METOPROLOL TARTRATE 25 MG TAB PO SCH (11:01)
[2019-12-03] MEDS: CHOLECALCIFEROL 1,000 UNIT TAB PO SCH (11:01)
[2019-12-03] MEDS: LORATADINE 10 MG TAB PO SCH (11:01)
--- NOTE | 2019-12-03 11:02 | PN ---
PROGRESS NOTE Mr. Perez is a 73-year-old male who presented with symptoms consistent with cerebrovascular accident with right upper extremities weakness. He is feeling better today. His breathing is stable. He denies any chest pain. No dizziness. No palpitation. He denies any nausea. He continued to be in sinus mechanism. He continues to be at this time on aspirin once a day, Lipitor 40 mg daily, Zestril 5 mg twice a day, metoprolol tartrate 25 mg twice a day. PHYSICAL EXAMINATION: Blood pressure running in the 140s to 150s with a heart rate in the 50s. LUNGS: Clear. HEART: Regular rate and rhythm. S1, S2. No S3 with systolic murmur at the base, ejection type no diastolic murmur, no rub. ABDOMEN: Soft, nontender. EXTREMITIES: No edema. IMPRESSION: 1. Cerebrovascular accident. 2. Cardiomyopathy of unclear etiology. 3. Mild aortic stenosis. 4. Hypertension. 5. Diabetes. RECOMMENDATION: I will increase the dose of his lisinopril. Continue rest of his medical regimen. Will proceed with transesophageal echocardiogram for further evaluation and he will be followed as an outpatient regarding his cardiomyopathy. MMODL / IJN: [id number] /
[2019-12-03 11:29] LABS: Glucose,Whole Blood 208 mg/dL (75-99)
[2019-12-03 14:58] VITALS: BP 123/60; PULSE 43; TEMP 97.8
== END 2019-12-03 15:08 | disposition home health service (06) | DRG 65 ==
LOC: EC 11:20 → 4SSUR 13:41 → 3SCARD 12-01 12:00
PROVIDERS: ADMIT Internal Medicine; ATTEND Internal Medicine
PROC: B246ZZ4 Ultrasonography of Right and Left Heart, Transesophageal (ICD-10-PCS; principal; 2019-12-03 08:30)
DX: I63.9 Cerebral infarction, unspecified (principal); I42.9 Cardiomyopathy, unspecified; J98.11 Atelectasis; R41.4 Neurologic neglect syndrome; D33.3 Benign neoplasm of cranial nerves; E11.649 Type 2 diabetes mellitus with hypoglycemia without coma; E78.5 Hyperlipidemia, unspecified; H91.92 Unspecified hearing loss, left ear; I10 Essential (primary) hypertension; J45.909 Unspecified asthma, uncomplicated; K21.9 Gastro-esophageal reflux disease without esophagitis; R29.6 Repeated falls; R47.81 Slurred speech; R26.81 Unsteadiness on feet; I08.3 Combined rheumatic disorders of mitral, aortic and tricuspid valves; Z80.8 Family history of malignant neoplasm of other organs or systems; Z80.3 Family history of malignant neoplasm of breast; Z11.59 Encounter for screening for other viral diseases; Z88.0 Allergy status to penicillin; Z88.2 Allergy status to sulfonamides; Z79.4 Long term (current) use of insulin; Z79.82 Long term (current) use of aspirin; Z79.899 Other long term (current) drug therapy; Z87.891 Personal history of nicotine dependence; I70.0 Atherosclerosis of aorta
CPT/HCPCS: 36415; 70450; 70496; 70498; 70551; 70553; 71046; 80048; 80053; 80061; 82140; 83036; 83735; 84100; 84484; 85025; 85610; 85730; 93005; 93306; 93312; 93320; 93325; 93880; 96361; 96374; 99285

== ENCOUNTER 2020-03-03 05:49 | Day surgery (SDC) | payer MEDICARE, OTHER ==
[2020-03-01 11:49] VITALS: BMI 29.7
[~2020-03-03 05:49] MED LIST changes: +ALPRAZolam 0.25 MG TAB PO PRN; +ALPRAZolam 0.5 MG TAB PO PRN; +ASPIRIN 325 MG TAB PO STA; +ATORVASTATIN 80 MG TAB PO STA; -CLINDAMYCIN 900 MG in DEXTROSE 5% IN WATER 50 ML IVPB ONE; -DEXAMETHASONE SOD PHOSPHATE 10 MG/ML 1 ML VIAL IV ONE; -HEPARIN SODIUM,PORCINE 5,000 UNIT/ML 1 ML VIAL SQ ONE; -LACTATED RINGERS 1,000 ML IV SCH; -LEVOFLOXACIN 500MG-D5W PMX 500 MG in DEXTROSE/WATER 1 100ML.BAG IVPB ONE; -LIDOCAINE 1% 20 ML VIAL (10MG/ML) FOR IV START INTRADERMA PRN; -MIDAZOLAM 2 MG/2 ML VIAL IV PRN; +NITROGLYCERIN SL TABS 0.4 MG TAB SUBLINGUAL PRN; +SODIUM CHLORIDE 0.9% 1,000 ML in EMPTY BAG 1 BAG IV ONE; -fentaNYL (PF) 50 MCG/ML 2 ML AMP IV PRN
[2020-03-03 06:41] LABS: Glucose,Whole Blood 235 mg/dL (75-99)
[2020-03-03] MEDS ORDERED: INSULIN ASPART (NovoLOG) 100 UNIT/ML VIAL SQ ONE (06:42)
[2020-03-03 06:45] VITALS: RESP 16; TEMP 98.1
[2020-03-03 06:50] LABS: Basophils # (A) 0.1 k/uL (0-0.2); Basophils % (A) 1 %; Eosinophils # (A) 0.2 k/uL (0-0.7); Eosinophils % (A) 3 %; HCT 42.8 % (39.0-53.0); HGB 13.9 gm/dL (13.0-17.5); Lymphocytes % (A) 30 %; MCHC 32.5 g/dL (31.0-37.0); MCV 89.2 fL (80.0-100.0); Mean Platelet Volume 9.8; Monocytes # (A) 0.4 k/uL (0-1.0); Monocytes % (A) 6 %; Neutrophils # (A) 3.8 k/uL (1.3-7.7); Neutrophils % (A) 57 %; Platelet Count 243 k/uL (150-450); RBC 4.79 m/uL (4.30-5.90); RDW 14.2 % (11.5-15.5); WBC 6.6 k/uL (3.8-10.6)
[2020-03-03] MEDS ORDERED: LIDOCAINE 1% INJ 10MG/ML (20 ML MDV) ONE (06:59)
[2020-03-03] MEDS ORDERED: VERAPAMIL 2.5 MG/ML 2 ML AMP ONE (06:59)
[2020-03-03] MEDS ORDERED: HEPARIN SODIUM 1,000 UN/ML (10ML VL) ONE (07:01)
[2020-03-03] MEDS ORDERED: fentaNYL (PF) 50 MCG/ML 2 ML AMP ONE (07:01)
[2020-03-03] MEDS ORDERED: LIDOCAINE 1% INJ 10MG/ML (20 ML MDV) SQ ONE (07:05)
[2020-03-03] MEDS ORDERED: fentaNYL (PF) 50 MCG/ML 2 ML AMP IV ONE (07:07)
[2020-03-03] MEDS ORDERED: MIDAZOLAM 2 MG/2 ML VIAL IV ONE (07:07)
[2020-03-03] MEDS ORDERED: VERAPAMIL SYRINGE (5 MG/10 ML) INTRAARTER ONE (07:10)
[2020-03-03] MEDS ORDERED: IOPAMIDOL-370 125ML BTL INJ ONE (07:22)
[2020-03-03] MEDS ORDERED: RX INFO: IV CONTRAST WAS GIVEN 1 EACH MISC MISCELLANE PRN (07:43)
[2020-03-03] MEDS ORDERED: SODIUM CHLORIDE 0.9% 1,000 ML IV SCH (07:45)
[2020-03-03] MEDS ORDERED: lisinopriL 10 MG TAB PO STA (08:10)
[2020-03-03] MEDS ORDERED: METOPROLOL TARTRATE 25 MG TAB PO STA (08:10)
--- NOTE | 2020-03-03 08:27 | LTR ---
03/03/2020 Jose Antonio Tafoya MD RE: RANDELL VASQUEZ Dear Dr. Tafoya: I had the opportunity to perform cardiac catheterization on Mr. Vasquez at [facility] on 03/03/2020. A full copy of the procedure note will be forwarded to you. In brief, he was found to have heavily calcified coronary arteries with severe triple- vessel coronary artery disease. Based on those findings, I have recommended proceeding with evaluation for coronary artery bypass grafting. I will keep you updated on his progress. Thank you again for allowing me to participate in this pleasant gentleman's care. Please feel free to call with any questions. Sincerely yours, Taryn Reyes M.D. ROSARIO / CONOR: [id number] /
--- NOTE | 2020-03-03 08:27 | CC ---
CARDIAC CATHETERIZATION REPORT Mr. Perez is a 74-year-old male with known history of hypertension, hyperlipidemia, diabetes mellitus, and a prior history of cerebrovascular accident, who underwent a myocardial perfusion imaging and was found to have a moderately size lateral wall reversible defect and mild cardiomyopathy. In view of that, recommendation was made regarding cardiac catheterization. The procedure, its risks and complications were discussed with the patient who is in full understanding and agreement. PROCEDURE: Patient was brought to the lab rn in a fasting semi-sedated state. After receiving fentanyl and Benadryl, using Xylocaine anesthesia and Seldinger technique, a 6-[place] sheath was introduced in the right radial artery. Selective right and left coronary angiography performed using 5-[place], 3.5 bend right and left Jomar catheter. Multiple views of the coronary arteries including hemiaxial views were obtained. Following that, a 5-[place] tight pigtail catheter was introduced into the left ventricle and pressures were calculated. Following that, catheter and sheath were removed. Hemostasis was obtained with deployment of a TR band. There was no immediate complication. Patient was returned to his room in stable condition. Of note, the patient received 5000 units of intravenous heparin as well as intra-arterial verapamil. FINDINGS: FLUOROSCOPY: There was severe calcification involving all the coronary arteries. LEFT MAIN: This is a large-sized vessel bifurcating in the left circumflex, left anterior descending artery. Left main coronary artery has no evidence of high-grade stenosis. LEFT ANTERIOR DESCENDING ARTERY: This is a large-sized vessel reaching toward the apex with a wraparound apex segment giving rise to 2 diagonal branchs. The second one is large in caliber. The proximal LAD has an eccentric 90% stenosis, calcified. The mid vessel has mild intimal disease of 40 50% without any evidence of high-grade stenosis. LEFT CIRCUMFLEX: This is a nondominant vessel giving rise to 3 obtuse marginal branchs. The second obtuse marginal branch has a 95-99 percent stenosis. The rest of the vessel has no high-grade stenosis. RIGHT CORONARY ARTERY: This is a dominant vessel, moderate in caliber, bifurcating distally into the PDA and posterolateral descending branches. The right coronary artery has a tubular intimal disease of about 60% in mid segment. At the distal segment prior to the bifurcation there is an 80-90% stenosis. There is another plaque in the PDA. LEFT VENTRICULOGRAM: Left ventriculogram was not performed. HEMODYNAMICS: There was no gradient across the aortic valve. The left ventricular end-diastolic pressure was 12-14 mmHg. CONCLUSION: 1. Calcified coronary arteries. 2. Severe triple-vessel coronary artery disease. RECOMMENDATION: In view of finding anatomy, I have recommend proceeding with evaluation for coronary artery bypass grafting, especially with a history of diabetes mellitus and the proximal LAD. Depending on the recommendation from the cardiovascular surgeon, further recommendation will be made. Those findings and recommendation were discussed with the patient and his family and they are in full understanding and agreement. DURATION OF SEDATION: 18 minutes. MMODL / IJN: [id number] /
[2020-03-03] MEDS ORDERED: VITAMIN E (DL,TOCOPHERYL ACET) 400 UNIT CAP PO SCH (09:00)
[2020-03-03] MEDS ORDERED: CHOLECALCIFEROL 1,000 UNIT TAB PO SCH (09:00)
[2020-03-03] MEDS ORDERED: NON FORMULARY DRUG (Calcium Carbonate [Calcium] 600 MG Tablet) PO SCH (09:00)
[2020-03-03] MEDS ORDERED: NON FORMULARY DRUG (Omega-3 Fatty Acids/Fish Oil [Fish Oil 1,000 Mg Softgel] 1 EACH Capsul PO SCH (09:00)
[2020-03-03] MEDS ORDERED: INSULN ASP PRT/INSULIN ASPART 100 UNIT/ML 10 ML VIAL SQ SCH ×2 (09:00→21:00)
--- NOTE | 2020-03-03 12:49 | P.GSCN ---
History of Present Illness Consult date: 03/03/20 Reason for Consult: Triple-vessel coronary artery disease Requesting physician: Taryn Reyes History of present illness: This is a 74-year-old gentleman who follows on an outpatient basis at the [facility] clinic. He is a previous medical history of recent stroke in November, cardiomyopathy, hypertension, hyperlipidemia, insulin-dependent diabetes, PAD, and previous tobacco dependence. He's had complaints of exertional dyspnea with ambulation, denies any chest pain, nausea, vomiting, dizziness. His sister who is at the bedside does state that he still has residual forgetfulness from his recent stroke as well as frequent falls at home. He ambulates with a cane. They state they have not been able to follow up with neurology and/or neurosurgery as they are waiting for authorization from the [place]. He underwent st ress testing with Dr. Reyes which demonstrated moderate reversible defect in the lateral wall. He was recommended to undergo heart catheterization which was completed today and which demonstrated proximal LAD stenosis 90%, mid LAD stenosis 40-50%, second obtuse marginal branch of the circumflex with stenosis 95-99%, and mid RCA stenosis 60% with distal stenosis 80-90% before the bifurcation. Due to these findings consultation was placed to Dr. Boone from cardiothoracic surgery for surgical revascularization recommendations. Of note the patient did have a transesophageal echocardiogram in November 2019 which demonstrated ejection fraction 45-50%, mild aortic stenosis, mild to moderate mitral regurgitation with mitral annular calcification, and mild tricuspid regurgitation. He also had a carotid Doppler demonstrating no significant flow- limiting stenosis in the internal carotid arteries. Brain MRI demonstrated acute ischemic changes within the left basal ganglia on, posterior corpus ca llosum left and right of midline, as well as within the cortex of the left occipital vertex, left cerebellar pontine angle mass with mass effect on the adjacent brain and extension into the internal auditory canal which was confirmed is AccuStick neuroma on MRI of the orbit/face/neck/IAC. Review of Systems Review of systems was completed and was negative except as noted - Cardiovascular Reports as per HPI, Reports dyspnea on exertion - Musculoskeletal Reports as per HPI, Reports frequent falls - Neurological Neurologic Comment(s): Forgetfulness Reports confusion Past Medical History Past Medical History: Asthma, Coronary Artery Disease (CAD), CVA/TIA, Diabetes Mellitus, GERD/Reflux, Hearing Disorder / Deafness, Hypertension Additional Past Medical History / Comment(s): HOSPITALIZATION 6/9/20 TO 12/03/19 FOR LOW BLOOD SUGAR AND CVA., ACOUSTIC NEUROMA., ORUTSARARMIUT-WORSE LEFT EAR, HEART MURMUR, HX RECEIVED FROM SISTER- SHE STATES "DISORIENTED " AT TIMES, SISTER LIVES WITH HIM., Walks with a cane, frequent falls History of Any Multi-Drug Resistant Organisms: None Reported Past Surgical History: Hernia Repair Additional Past Surgical History / Comment(s): azam detached retina, colonoscopy Past Anesthesia/Blood Transfusion Reactions: No Reported Reaction Past Psychological History: No Psychological Hx Reported Smoking Status: Former smoker Past Alcohol Use History: None Reported Additional Past Alcohol Use History / Comment(s): quit smoking cigarettes 1966, occasional cigar -none currently Past Drug Use History: None Reported - Past Family History Sister(s) Family Medical History: Cancer Additional Family Medical History / Comment(s): 2 SISTERS HAD MELANOMA Father Family Medical History: Cancer Additional Family Medical History / Comment(s): MELANOMA; permanent pacemaker Brother(s) Family Medical History: Cancer Mother Family Medical History: Cancer Additional Family Medical History / Comment(s): BREAST CA Medications and Allergies Home Medications Medication Instructions Recorded Confirmed Type Omeprazole [PriLOSEC] 20 mg PO AC-BRKFST 01/19/16 03/03/20 History metFORMIN HCL 500 mg PO BID 01/19/16 03/03/20 History Cholecalciferol [Vitamin D3 (25 1,000 unit PO DAILY 10/31/17 03/03/20 History Mcg = 1000 Iu)] [place]-3 Fatty Acids/Fish Oil [Fish 1 cap PO DAILY 08/10/18 03/03/20 History Oil 1,000 mg Softgel] Vitamin E (Dl,Tocopheryl Acet) 400 unit PO DAILY 08/10/18 03/03/20 History [Vitamin E] Aspirin 325 mg PO DAILY #30 tab 12/03/19 03/03/20 Rx Insuln Asp Prt/Insulin Aspart 25 unit SQ HS #0 12/03/19 03/03/20 Rx [NovoLOG MIX 70-30 VIAL] Insuln Asp Prt/Insulin Aspart 50 unit SQ QAM #0 12/03/19 03/03/20 Rx [NovoLOG MIX 70-30 VIAL] Metoprolol Tartrate [Lopressor] 25 mg PO BID #60 tab 12/03/19 03/03/20 Rx Calcium Carbonate [Calcium] 600 mg PO DAILY 03/01/20 03/03/20 History lisinopriL [Zestril] 10 mg PO DAILY 03/01/20 03/03/20 History Atorvastatin [Lipitor] 80 mg PO DAILY #90 tab 03/03/20 Rx Allergies Allergy/AdvReac Type Severity Reaction Status Date / Time Sulfa (Sulfonamide Allergy Unknown Rash/Hives Verified 03/01/20 10:51 Antibiotics) Penicillins Allergy "passed Verified 03/01/20 10:51 out" Surgical - Exam Vital Signs Temp Pulse Resp BP Pulse Ox 98.1 F 59 L 16 213/97 99 03/03/20 06:25 03/03/20 06:25 03/03/20 06:25 03/03/20 06:25 03/03/20 06:25 - General well developed, well nourished, no distress, no pain - Eyes normal ocular movement - ENT decreased hearing, poor long term - Neck no masses, no bruits, trachea midline - Respiratory Lungs sounds diminished bilaterally. Respirations even, nonlabored. Currently on room air with oxygen saturation 99%. No chest wall deformities. No clubbing or cyanosis present. - Cardiovascular S1, S2 present. Slow but regular rate and rhythm, sinus bradycardia in the low 40s on telemetry. Palpable peripheral pulses bilaterally. No edema present. No calf pain or tenderness noted. - Abdomen Abdomen: soft, non tender, bowel sounds - Genitourinary Deferred - Rectum Deferred - Integumentary Right radial heart catheterization site well approximated, T band in place no rash, no growths - Neurologic normal sensation, memory loss - Musculoskeletal normal posture - Psychiatric oriented to time, oriented to person, oriented to place, speech is normal Results - Labs 03/03/20 06:37 Abnormal Lab Results - Last 24 Hours (Table) 03/03/20 Range/Units 06:30 POC Glucose (mg/dL) 235 H (75-99) mg/dL - Imaging Additional studies: Heart catheterization films reviewed with Dr. Boone Assessment and Plan Assessment: 1. Triple-vessel coronary artery disease 2. Recent stroke, November 2019. Brain MRI demonstrated acute ischemic changes w ithin the left basal ganglia on, posterior corpus callosum left and right of midline, as well as within the cortex of the left occipital vertex, left cerebellar pontine angle mass with mass effect on the adjacent brain and extension into the internal auditory canal which was confirmed is AccuStick n euroma on MRI of the orbit/face/neck/IAC. 3. Cardiomyopathy, EF 45-50%, mild aortic stenosis, mild to moderate mitral regurgitation with mitral annular calcification and mild tricuspid regurgitation 4. Hypertension 5. Hyperlipidemia 6. Insulin-dependent diabetes 7. PAD 8. Previous tobacco dependence Plan: The patient was seen and examined at the bedside with Dr. Boone. Chart/diagnostics were reviewed including records from his November 2019 visit. The case was discussed between Dr. Boone and Dr. Reyes. At this time our recommendation is for patient to follow-up with neurology as well as neurosurgery regarding continued memory loss, occasional confusion, frequent falls as these may be continuing manifestations of his stroke. We would like clearance from neuro to proceed with cardiac revascularization. Once the patient has received neuro clearance we can meet to further discuss surgical revascularization versus PCI. Until then, continue his aspirin, statin, beta sarah therapy although beta sarah may need to be reduced or held due to bradycardia. The patient is to follow-up with Dr. Reyes in the office in the next week. Further recommendations regarding surgery to follow. Thank you Dr. Reyes for this consult. We look forward to working with you in the care of your patient. Time with Patient: Greater than 30
[2020-03-03 16:40] VITALS: BP 170/77; PULSE 42
[2020-03-03] MEDS ORDERED: METOPROLOL TARTRATE 25 MG TAB PO SCH (21:00)
[2020-03-04] MEDS ORDERED: PANTOPRAZOLE 40 MG TABLET PO SCH (07:30)
[2020-03-04] MEDS ORDERED: ATORVASTATIN 80 MG TAB PO SCH (09:00)
[2020-03-04] MEDS ORDERED: ASPIRIN 325 MG TAB PO SCH (09:00)
[2020-03-04] MEDS ORDERED: lisinopriL 10 MG TAB PO SCH (09:00)
== END 2020-03-03 12:30 | disposition home or self-care (01) ==
LOC: CATHCVL 05:49
PROVIDERS: ATTEND Internal Medicine Interventional Cardiology
DX: I25.10 Atherosclerotic heart disease of native coronary artery without angina pectoris (principal); I08.3 Combined rheumatic disorders of mitral, aortic and tricuspid valves; I42.9 Cardiomyopathy, unspecified; D33.3 Benign neoplasm of cranial nerves; I10 Essential (primary) hypertension; I73.9 Peripheral vascular disease, unspecified; E11.9 Type 2 diabetes mellitus without complications; E78.00 Pure hypercholesterolemia, unspecified; E78.5 Hyperlipidemia, unspecified; J45.909 Unspecified asthma, uncomplicated; K21.9 Gastro-esophageal reflux disease without esophagitis; H91.90 Unspecified hearing loss, unspecified ear; Z87.891 Personal history of nicotine dependence; Z86.73 Personal history of transient ischemic attack (TIA), and cerebral infarction without residual deficits; Z98.890 Other specified postprocedural states; Z88.2 Allergy status to sulfonamides; Z88.0 Allergy status to penicillin; Z79.82 Long term (current) use of aspirin; Z79.4 Long term (current) use of insulin; Z79.899 Other long term (current) drug therapy; Z80.8 Family history of malignant neoplasm of other organs or systems; Z82.49 Family history of ischemic heart disease and other diseases of the circulatory system; Z80.3 Family history of malignant neoplasm of breast
CPT/HCPCS: 93458; 85025; C1769; C1894; J2250; J2001; J3010; J1644; Q9967

== ENCOUNTER → 2020-05-15 | Outpatient (CLI) | payer OTHER ==
[2020-05-15 10:56] LABS: HCT 39.3 % (39.0-53.0); HGB 13.3 gm/dL (13.0-17.5); MCH 30.6 pg (25.0-35.0); Mean Platelet Volume 8.6; Platelet Count 212 k/uL (150-450); RBC 4.37 m/uL (4.30-5.90); RDW 13.4 % (11.5-15.5); WBC 6.3 k/uL (3.8-10.6)
[2020-05-15 11:07] LABS: ALT 16 U/L (4-49); AST 20 U/L (17-59); African American GFR (CKD) >90 (>60 ml/min/1.73 sqM); Albumin 3.8 g/dL (3.5-5.0); Alkaline Phosphatase 60 U/L (38-126); Anion Gap 9 mmol/L; Blood Urea Nitrogen 13 mg/dL (9-20); Calcium 9.3 mg/dL (8.4-10.2); Carbon Dioxide 27 mmol/L (22-30); Chloride 99 mmol/L (98-107); Cholesterol 119 mg/dL (<200); Glucose 196 mg/dL (74-99); HDL Cholesterol 53 mg/dL (40-60); INR 0.9 (<1.2); LDL Cholesterol,Calculated 51 mg/dL (0-99); Magnesium 1.8 mg/dL (1.6-2.3); Non-African American GFR(CKD) >90 (>60 ml/min/1.73 sqM); Partial Thromboplastin Time 24.8 sec (22.0-30.0); Potassium 4.5 mmol/L (3.5-5.1); Prothrombin Time 9.7 sec (9.0-12.0); Sodium 135 mmol/L (137-145); Total Bilirubin 1.6 mg/dL (0.2-1.3); Total Protein 6.6 g/dL (6.3-8.2); Triglycerides 75 mg/dL (<150)
--- NOTE | 2020-05-15 11:58 | XR ---
EXAMINATION TYPE: XR chest 2V DATE OF EXAM: 05/15/2020 COMPARISON: 11/30/2019 HISTORY: Shortness of breath TECHNIQUE: Frontal and lateral views of the chest are obtained. FINDINGS: Scattered senescent parenchymal changes noted. Hyperinflation compatible with COPD. No evidence for infiltrate. No evidence for atelectasis. Heart size is stable. Mediastinal structures are stable and grossly unremarkable. No evidence for hilar prominence. Degenerative changes dorsal spine. IMPRESSION: 1. No evidence for acute pulmonary disease.
[2020-05-15 12:13] LABS: Appearance,Urine Clear (Clear); Bilirubin,Urine Negative (Negative); Blood,Urine Negative (Negative); Color,Urine Colorless; Glucose,Urine (UA) Negative (Negative); Ketones,Urine 1+ (Negative); Leukocyte Esterase,Urine Negative (Negative); Nitrite,Urine Negative (Negative); PH, Urine 5.5 (5.0-8.0); Protein,Urine Negative (Negative); Specific Gravity,Urine 1.004 (1.001-1.035); Urobilinogen,Urine <2.0 mg/dL (<2.0)
--- NOTE | 2020-05-15 12:18 | P.PN ---
Progress Note - Text Progress Note Date: 05/15/20 5 meter walk test completed 05/15/20: #1 6.11 sec #2 5.79 sec #3 5.91 sec Patient completed without difficulty
[2020-05-15 16:22] LABS: Hepatitis A Antibody IgM Non-Reactive (Non-Reactive); Hepatitis B Core IgM Non-Reactive (Non-Reactive); Hepatitis B Surface Antigen Non-Reactive (Non-Reactive); Hepatitis C IgG Antibody Non-Reactive (Non-Reactive)
--- NOTE | 2020-05-17 10:05 | P.VSCSTY ---
Greater Saphenous Vein Mapping This is bilateral lower extremity greater saphenous vein mapping. Date of service: 05/15/2020 Vein quality and ultrasound appearance: We see no intraluminal thrombus or significant wall changes. Vein size groin right : 8.7 x 3.5 groin left: 7.5 x 6.1 High thigh right: 5.9 x 4.0 high thigh left: 4.7 x 3.8 Mid thigh right: 3.6 x 2.1 mid thigh left: 3.2 x 2.8 Above-knee right: 3.5 x 2.0 above-knee left: 3.4 x 2.4 Below knee right: 3.6 x 2.3 below-knee left: 3.7 x 2.6 Mid calf right: 3.2 x 1.7 mid calf left: 2.4 x 2.7 Ankle right: 4.5 x 2 ankle left: 2.2 x 1.1 Impression: Usable bilateral greater saphenous vein. Mid calf on the right and ankle on the left may be small for use..
--- NOTE | 2020-05-17 10:07 | P.ARTDOP ---
Arterial Doppler LOWER EXTREMITY ARTERIAL DOPPLER: DATE OF SERVICE: 05/15/2020 Reason for study: Preop CABG. Doppler waveforms: Multiphasic bilaterally throughout with good toe waveforms. Pulse volume recording: []. Pressure gradients: None. Ankle-brachial indices: Greater than 1 bilaterally. Toe brachial indices: Greater than 1 on the right, cannot occlude on the left Impression: Normal study. Suspect some distal calcific wall disease of no hemodynamic significance..
== END | disposition home or self-care (01) ==
LOC: LABPAT 08:53
PROVIDERS: ATTEND Thoracic Surgery (Cardiothoracic Vascular Surgery)
DX: Z01.810 Encounter for preprocedural cardiovascular examination (principal); U07.1 COVID-19; I10 Essential (primary) hypertension; I25.10 Atherosclerotic heart disease of native coronary artery without angina pectoris; I63.9 Cerebral infarction, unspecified; E11.9 Type 2 diabetes mellitus without complications; J45.909 Unspecified asthma, uncomplicated; Z79.01 Long term (current) use of anticoagulants
CPT/HCPCS: 80061; 80053; 80074; 84443; 83735; 85027; 85610; 85730; 81003; 87070; 87086; 83036; 71046; 93970; 93922; 93005; 36415; U0003; C9803; 93923

== ENCOUNTER 2020-05-22 05:33 | Inpatient (IN) | payer OTHER, MEDICARE ==
[~2020-05-22 05:33] MED LIST changes: +ALBUMIN HUMAN 25% 50 ML IV ONE; +ALBUMIN HUMAN 5% 500 ML IVPB ONE; -ALPRAZolam 0.25 MG TAB PO PRN; -ALPRAZolam 0.5 MG TAB PO PRN; +ASPIRIN 325 MG TAB PO ONE; -ASPIRIN 325 MG TAB PO STA; -ATORVASTATIN 80 MG TAB PO STA; +CALCIUM CHLORIDE 100 MG/ML 10 ML SYRINGE IV ONE; +CHLORHEXIDINE GLUCONATE 15 ML CUP MUCOUS MEM ONE; +CLEVIDIPINE BUTYRATE 25 MG in EMPTY BAG 1 BAG IV ONE; +DEXTROSE 5% IN WATER 1,000 ML with POTASSIUM CHLORIDE 110 MEQ, MAGNESIUM SULFATE 16 MEQ... IV ONE; +DEXTROSE 5% IN WATER 1,000 ML with POTASSIUM CHLORIDE 25 MEQ, SODIUM CHLORIDE 2.5MEQ/ML... IRRIGATION ONE; +HEPARIN SODIUM 1,000 UN/ML (10ML VL) IV ONE; +HEPARIN SODIUM,PORCINE 5,000 UNIT in SODIUM CHLORIDE 0.9% 500 ML 500 ML IV ONE; +INSULIN REGULAR 100 UNIT in SODIUM CHLORIDE 0.9% 100 ML IV ONE; +LACTATED RINGERS 1,000 ML IV ONE; +MAGNESIUM SULFATE MG 500 MG/ML IV ONE; +MANNITOL 25% 12.5 GM/50 ML VIAL IV ONE; +METOPROLOL TARTRATE 12.5 MG TAB PO ONE; +MUPIROCIN 2% OINT 22 GM TUBE NASAL ONE; -NITROGLYCERIN SL TABS 0.4 MG TAB SUBLINGUAL PRN; +NITROGLYCERIN-D5W PMX 25 MG/250 ML BTL IV ONE; +NITROGLYCERIN-D5W PMX 50 MG in DEXTROSE/WATER 1 250ML.BAG IV ONE; +NOREPINEPHRINE 4 MG in SODIUM CHLORIDE 0.9% 250 ML IV ONE; +PAPAVERINE 360 MG in SODIUM CHLORIDE 0.9% 90 ML IV ONE; +PHENYLEPHRINE 10 MG/ML VIAL IV ONE; +PHENYLEPHRINE 40 MG in SODIUM CHLORIDE 0.9% 250 ML IV ONE; +PROTAMINE SULFATE 10 MG/ML 25 ML VIAL IV ONE; +PROTAMINE SULFATE 250 MG in EMPTY BAG 1 BAG IV ONE; +SODIUM BICARB 8.4% 50 ML SYR (1 MEQ/ML) IV ONE; +SODIUM CHLORIDE 0.9% 1,000 ML IV ONE; -SODIUM CHLORIDE 0.9% 1,000 ML in EMPTY BAG 1 BAG IV ONE; +TRANEXAMIC ACID 2,000 MG in SODIUM CHLORIDE 0.9% 80 ML IV ONE; +propofoL 1,000 MG/100 ML VIAL IV ONE
[2020-05-22] MEDS ORDERED: VANCOMYCIN 1,250 MG in SODIUM CHLORIDE 0.9% 100 ML IVPB ONE (06:00)
[2020-05-22] MEDS: ATORVASTATIN 10 MG TAB PO ONE ×2 (06:20→06:25)
[2020-05-22] MEDS ORDERED: LIDOCAINE 1% (10MG/ML) FOR IV START INTRADERMA ONE (06:30)
[2020-05-22 06:38] LABS: Glucose,Whole Blood 142 mg/dL (75-99)
[2020-05-22] MEDS ORDERED: fentaNYL (PF) 50 MCG/ML 50 ML VIAL ONE (07:38)
[2020-05-22] MEDS ORDERED: ELECTROLYTE-R (PH 7.4) 1,000 ML IV.SOLN IV ONE (07:38)
[2020-05-22] MEDS ORDERED: fentaNYL (PF) 50 MCG/ML 2 ML AMP ONE (07:38)
[2020-05-22] MEDS ORDERED: CALCIUM CHLORIDE 100 MG/ML 10 ML SYRINGE ONE (07:38)
[2020-05-22] MEDS ORDERED: PROTAMINE SULFATE 10 MG/ML 25 ML VIAL IV ONE (07:38)
[2020-05-22] MEDS ORDERED: SUCCINYLCHOLINE CHLORIDE 100 MG/5 ML SYR IV ONE (07:38)
[2020-05-22] MEDS ORDERED: NITROGLYCERIN-D5W PMX 50 MG/250 ML BOTTLE IV ONE (07:38)
[2020-05-22] MEDS ORDERED: MIDAZOLAM 2 MG/2 ML VIAL ONE (07:38)
[2020-05-22] MEDS ORDERED: AMIODARONE 50 MG/ML 3 ML VIAL IV ONE (07:38)
[2020-05-22] MEDS ORDERED: PROPOFOL 10 MG/ML 20 ML VIAL IV ONE (07:38)
[2020-05-22] MEDS ORDERED: SODIUM CHLORIDE 0.9% IRRIG 1,000 ML BTL IRRIGATION ONE (07:38)
[2020-05-22] MEDS ORDERED: HEPARIN SODIUM,PORCINE 10,000 UNIT/ML 1 ML VIAL ONE (07:38)
[2020-05-22] MEDS ORDERED: MAGNESIUM SULFATE 4 MEQ/ML 10ML VIAL ONE (07:38)
[2020-05-22] MEDS ORDERED: VECURONIUM 10 MG VIAL IV ONE (07:38)
[2020-05-22] MEDS ORDERED: LIDOCAINE 2% SYG (PF) 100 MG/5 ML ONE (07:38)
[2020-05-22 08:46] LABS: ABG Base Excess 1.2 mmol/L; ABG Glucose Whole Blood 174 mg/dL (75-99); ABG HCO3 25 mmol/L (21-25); ABG Hematocrit 38 % (34.0-46.0); ABG Ionized Calcium 4.6 mg/dL (4.5-5.3); ABG Lactic Acid Whole Blood 0.7 mmol/L (0.5-1.6); ABG Oxygen Saturation 99.9 % (94-97); ABG PCO2 34 mmHg (35-45); ABG PH 7.46 (7.35-7.45); ABG PO2 252 mmHg (83-108); ABG Potassium Whole Blood 4.6 mmol/L (3.4-4.5); ABG Sodium Whole Blood 136 mmol/L (135-146); ABG TCO2 26 mmol/L (19-24)
[2020-05-22 10:33] LABS: ABG Base Excess -0.3 mmol/L; ABG Glucose Whole Blood 166 mg/dL (75-99); ABG HCO3 24 mmol/L (21-25); ABG Hematocrit 35 % (34.0-46.0); ABG Ionized Calcium 4.6 mg/dL (4.5-5.3); ABG Lactic Acid Whole Blood 1.4 mmol/L (0.5-1.6); ABG Oxygen Saturation 99.8 % (94-97); ABG PCO2 39 mmHg (35-45); ABG PH 7.41 (7.35-7.45); ABG PO2 266 mmHg (83-108); ABG Potassium Whole Blood 4.2 mmol/L (3.4-4.5); ABG Sodium Whole Blood 136 mmol/L (135-146); ABG TCO2 25 mmol/L (19-24)
[2020-05-22 11:01] LABS: ABG Base Excess -0.5 mmol/L; ABG Glucose Whole Blood 247 mg/dL (75-99); ABG HCO3 24 mmol/L (21-25); ABG PCO2 35 mmHg (35-45); ABG PH 7.43 (7.35-7.45); ABG Potassium Whole Blood 5.2 mmol/L (3.4-4.5); ABG Sodium Whole Blood 130 mmol/L (135-146); ABG TCO2 25 mmol/L (19-24)
[2020-05-22 11:42] LABS: ABG Hematocrit 24 % (34.0-46.0); ABG PO2 >420 mmHg (83-108)
[2020-05-22 12:10] LABS: ABG Glucose Whole Blood 182 mg/dL (75-99); ABG HCO3 25 mmol/L (21-25); ABG Ionized Calcium 4.3 mg/dL (4.5-5.3); ABG Lactic Acid Whole Blood 1.8 mmol/L (0.5-1.6); ABG Oxygen Saturation 99.6 % (94-97); ABG PCO2 43 mmHg (35-45); ABG PH 7.38 (7.35-7.45); ABG PO2 263 mmHg (83-108); ABG Potassium Whole Blood 4.2 mmol/L (3.4-4.5); ABG Sodium Whole Blood 135 mmol/L (135-146); ABG TCO2 27 mmol/L (19-24)
[2020-05-22 12:46] LABS: ABG Base Excess 0.4 mmol/L; ABG Glucose Whole Blood 182 mg/dL (75-99); ABG HCO3 25 mmol/L (21-25); ABG Hematocrit 27 % (34.0-46.0); ABG Ionized Calcium 3.7 mg/dL (4.5-5.3); ABG Lactic Acid Whole Blood 1.4 mmol/L (0.5-1.6); ABG Oxygen Saturation 99.9 % (94-97); ABG PCO2 38 mmHg (35-45); ABG PH 7.43 (7.35-7.45); ABG PO2 377 mmHg (83-108); ABG Potassium Whole Blood 3.6 mmol/L (3.4-4.5); ABG Sodium Whole Blood 137 mmol/L (135-146); ABG TCO2 26 mmol/L (19-24)
[2020-05-22] MEDS ORDERED: ALBUMIN HUMAN 5% 500 ML IVPB ONE (12:52)
[2020-05-22 13:03] LABS: ABG Hematocrit 24 % (34.0-46.0)
--- NOTE | 2020-05-22 13:22 | P.ANPRN ---
Procedure Note - Anesthesia - KYLIE Intraop Pre Bypass KYLIE Intraop - Anesthesia Indication: Ischemia Monitoring, Assessment of cardaic function and valves Date of Procedure: 05/22/20 Pre-operative Diagnosis: Coronary artery Disease Post-operative Diagnosis: Same Surgeon: Tomas Boone Ejection Fraction: Other (EF 50%) Regional Wall Motion Abnormalities: None Left Ventricle Hypertrophy: No Right Ventricle: Normal R. Ventricle Function: Normal Anatomy: Trileaflet Aortic Stenosis: Mild (Peak gradient 14mm of Hg and Mean 7 mm of Hg. Valve area 1.6Sq.cm) Aortic Regurgitation: None Mitral Stenosis: None Mitral Regurgitation: Mild (Mitral Annular Calcification present) Tricuspid Stenosis: None Tricuspid Regurgitation: Trace Pulmonic Stenosis: None R. Atrial Dilation: No R. Atrial PFO: No Left Atrium: Mild dilation L. Atrial Dilation: Yes (Mild) Aorta: Grade 2 atherosclerosis Aortic Dissection: No Plural Effusion: None - KYLIE Intraop Post Bypass KYLIE Intraop Post Bypass Ejection Fraction: Normal (EF 50%) Regional Wall Motion Abnormalities: None R. Ventricle Function: Normal Aortic Valve: Unchanged Mitral Valve: Unchanged Tricuspid: Unchanged Pulmonic: Unchanged Aortic Dissection: No
[2020-05-22] MEDS ORDERED: IPRATROPIUM-ALBUTEROL 3 ML NEB INHALATION PRN (13:32)
[2020-05-22] MEDS ORDERED: BENZOCAINE/MENTHOL LOZENG 1 EACH LOZENGE MUCOUS MEM PRN (13:32)
[2020-05-22] MEDS ORDERED: DEXMEDETOMIDINE/0.9% NACL(PMX) 400 MCG in EMPTY BAG 1 BAG IV SCH (13:32)
[2020-05-22] MEDS ORDERED: ONDANSETRON 4 MG/2 ML VIAL IVP PRN (13:32)
[2020-05-22] MEDS ORDERED: Phosphorus Replacement Protoco 1 EACH MISC MISCELLANE PRN (13:32)
[2020-05-22] MEDS ORDERED: AMIODARONE 360 MG in DEXTROSE 5% IN WATER 200 ML IV PRN ×2 (13:32)
[2020-05-22] MEDS ORDERED: AMIODARONE 300 MG in DEXTROSE 5% IN WATER 250 ML IV PRN ×2 (13:32)
[2020-05-22] MEDS ORDERED: Potassium Replacement Protocol 1 EACH MISC MISCELLANE PRN (13:32)
[2020-05-22] MEDS ORDERED: CALCIUM GLUCONATE 2 GM in SODIUM CHLORIDE 0.9% 100 ML IVPB PRN (13:32)
[2020-05-22] MEDS ORDERED: hydrALAZINE HCL 20 MG/ML 1 ML VIAL IVP PRN (13:32)
[2020-05-22] MEDS ORDERED: NITROGLYCERIN-D5W PMX 50 MG in DEXTROSE/WATER 1 250ML.BAG IV SCH (13:32)
[2020-05-22] MEDS ORDERED: DEXTROSE 5% IN WATER 100 ML with AMIODARONE 150 MG IV PRN (13:32)
[2020-05-22] MEDS ORDERED: Magnesium Replacement Protocol 1 EACH MISC MISCELLANE PRN (13:32)
[2020-05-22 13:48] LABS: Glucose,Whole Blood 131 mg/dL (75-99)
[2020-05-22 14:05] LABS: Basophils % (A) 0 %; Eosinophils # (A) 0.1 k/uL (0-0.7); Eosinophils % (A) 1 %; HCT 31.4 % (39.0-53.0); HGB 10.7 gm/dL (13.0-17.5); Lymphocytes # (A) 1.2 k/uL (1.0-4.8); Lymphocytes % (A) 10 %; MCH 30.2 pg (25.0-35.0); MCV 88.8 fL (80.0-100.0); Mean Platelet Volume 9.1; Monocytes # (A) 0.4 k/uL (0-1.0); Monocytes % (A) 3 %; Neutrophils # (A) 10.8 k/uL (1.3-7.7); Neutrophils % (A) 86 %; Platelet Count 147 k/uL (150-450); RBC 3.54 m/uL (4.30-5.90); RDW 13.8 % (11.5-15.5); WBC 12.5 k/uL (3.8-10.6)
[2020-05-22 14:07] LABS: Ionized Calcium 4.7 mg/dL (4.5-5.3)
[2020-05-22 14:07] LABS: Glucose,Whole Blood 120 mg/dL (75-99)
[2020-05-22 14:14] LABS: ALT 13 U/L (4-49); AST 39 U/L (17-59); African American GFR (CKD) >90 (>60 ml/min/1.73 sqM); Albumin 2.4 g/dL (3.5-5.0); Alkaline Phosphatase 24 U/L (38-126); Anion Gap 2 mmol/L; Blood Urea Nitrogen 13 mg/dL (9-20); Calcium 7.9 mg/dL (8.4-10.2); Carbon Dioxide 27 mmol/L (22-30); Chloride 105 mmol/L (98-107); Glucose 129 mg/dL (74-99); Magnesium 2.4 mg/dL (1.6-2.3); Non-African American GFR(CKD) >90 (>60 ml/min/1.73 sqM); Sodium 134 mmol/L (137-145); Total Bilirubin 1.6 mg/dL (0.2-1.3); Total Protein 4.5 g/dL (6.3-8.2)
[2020-05-22 14:14] LABS: ABG HCO3 25 mmol/L (21-25); ABG Oxygen Saturation 98.3 % (94-97); ABG PCO2 39 mmHg (35-45); ABG PH 7.43 (7.35-7.45); ABG PO2 152 mmHg (83-108); ABG TCO2 27 mmol/L (19-24)
[2020-05-22] MEDS: LACTATED RINGERS 1,000 ML IV SCH (14:14)
[2020-05-22] MEDS: CLEVIDIPINE BUTYRATE 25 MG in EMPTY BAG 1 BAG IV SCH ×2 (14:14→21:33)
[2020-05-22 14:15] LABS: INR 1.1 (<1.2)
[2020-05-22] MEDS: ALBUMIN HUMAN 5% 250 ML in EMPTY BAG 1 BAG IVPB PRN ×3 (14:15→20:03)
[2020-05-22 14:18] LABS: Potassium 3.4 mmol/L (3.5-5.1)
--- NOTE | 2020-05-22 14:19 | XR ---
EXAMINATION TYPE: XR chest 1V portable DATE OF EXAM: 05/22/2020 COMPARISON: 05/15/2020 INDICATION: Post cardiac surgery TECHNIQUE: Single frontal view of the chest is obtained. FINDINGS: The heart size is enlarged. The pulmonary vasculature is normal. The lungs are clear. There is a endotracheal tube with the tip 2.6 cm above the roro. Nasogastric tube transverses the t horax the tip in the left upper quadrant of the abdomen. Mediastinal tube is present. [place]-Leticia heri ter is present with the tip in the main pulmonary artery region. Left-sided chest tube is present. No pneumothorax is evident. IMPRESSION: 1. Multiple lines and catheters discussed above. 2. Cardiomegaly
[2020-05-22] MEDS: INSULIN REGULAR 100 UNIT in SODIUM CHLORIDE 0.9% 100 ML IV SCH ×2 (14:48→22:54)
[2020-05-22 15:01] LABS: Glucose,Whole Blood 107 mg/dL (75-99)
[2020-05-22] MEDS: POTASSIUM CHLORIDE 20 MEQ in WATER FOR INJECTION 1 100ML.BAG IVPB SCH ×2 (15:05→17:26)
[2020-05-22] MEDS ORDERED: IPRATROPIUM-ALBUTEROL 3 ML NEB INHALATION SCH (16:00)
[2020-05-22 16:11] LABS: Glucose,Whole Blood 138 mg/dL (75-99)
--- NOTE | 2020-05-22 16:56 | P.CRDCN ---
History of Present Illness Consult date: 05/22/20 History of present illness: This is a 74-year-old gentleman who was recently evaluated with cardiac catheterization because of positive stress test. He was found to have calcified critical lesion involving the LAD, circumflex and the right coronary artery. Patient underwent a 2 coronary bypass surgery with the DOOLEY graft to the LAD and vein graft to the OM and also PDA. Patient is still intubated. There seemed to be hemodynamically stable. No arrhythmias noted. Patient is a started on metoprolol 12.5 g by mouth twice a day. Patient has history of hypertension, previous CVA and diabetes. We'll continue current management. We will follow him along with you Review of Systems Not obtained Past Medical History Past Medical History: Asthma, Coronary Artery Disease (CAD), CVA/TIA, Diabetes Mellitus, GERD/Reflux, Hearing Disorder / Deafness, Hypertension Additional Past Medical History / Comment(s): HOSPITALIZATION 11/30/19 TO 12/03/19 FOR LOW BLOOD SUGAR AND CVA., ACOUSTIC NEUROMA., [place]SE LEFT EAR, HEART MURMUR, HX RECEIVED FROM SISTER- SHE STATES "DISORIENTED " AT TIMES, SISTER LIVES WITH HIM., Walks with a cane, frequent falls History of Any Multi-Drug Resistant Organisms: None Reported Past Surgical History: Heart Catheterization, Hernia Repair Additional Past Surgical History / Comment(s): azam detached retina, colonoscopy Past Anesthesia/Blood Transfusion Reactions: No Reported Reaction Additional Past Anesthesia/Blood Transfusion Reaction / Comment(s): no hx blood transfusion Smoking Status: Former smoker - Past Family History Sister(s) Family Medical History: Cancer Additional Family Medical History / Comment(s): 2 SISTERS HAD MELANOMA Father Family Medical History: Cancer Additional Family Medical History / Comment(s): MELANOMA; permanent pacemaker Brother(s) Family Medical History: Cancer Mother Family Medical History: Cancer Additional Family Medical History / Comment(s): BREAST CA Medications and Allergies Home Medications Medication Instructions Recorded Confirmed Type Omeprazole [PriLOSEC] 20 mg PO AC-BRKFST 01/19/16 05/17/20 History metFORMIN HCL 500 mg PO BID 01/19/16 05/17/20 History Cholecalciferol [Vitamin D3 (25 1,000 unit PO DAILY 10/31/17 05/17/20 History Mcg = 1000 Iu)] [place]-3 Fatty Acids/Fish Oil [Fish 1 cap PO DAILY 08/10/18 05/17/20 History Oil 1,000 mg Softgel] Vitamin E (Dl,Tocopheryl Acet) 400 unit PO DAILY 08/10/18 05/17/20 History [Vitamin E] Aspirin 325 mg PO DAILY #30 tab 12/03/19 05/17/20 Rx Insuln Asp Prt/Insulin Aspart 25 unit SQ HS #0 12/03/19 05/17/20 Rx [NovoLOG MIX 70-30 VIAL] Insuln Asp Prt/Insulin Aspart 50 unit SQ QAM #0 12/03/19 05/17/20 Rx [NovoLOG MIX 70-30 VIAL] Calcium Carbonate [Calcium] 600 mg PO DAILY 03/01/20 05/17/20 History lisinopriL [Zestril] 10 mg PO DAILY 03/01/20 05/17/20 History Atorvastatin [Lipitor] 80 mg PO DAILY #90 tab 03/03/20 05/17/20 Rx Garlic 1 each PO DAILY 05/17/20 05/17/20 History Metoprolol Tartrate [Lopressor] 25 mg PO BID 05/17/20 05/17/20 History amLODIPine [Norvasc] 10 mg PO QAM 05/17/20 05/17/20 History Allergies Allergy/AdvReac Type Severity Reaction Status Date / Time Sulfa (Sulfonamide Allergy Unknown Rash/Hives Verified 05/22/20 06:06 Antibiotics) Penicillins Allergy "passed Verified 05/22/20 06:06 out" Physical Exam Vitals: Vital Signs Temp Pulse Pulse Resp BP BP Pulse Ox 05/22/20 16:25 54 L 05/22/20 16:18 56 L 05/22/20 06:30 97.6 F 72 16 171/89 181/85 98 Intake and Output 05/22/20 05/22/20 05/22/20 06:59 14:59 22:59 Intake Total 192.200 380.01 Output Total 1805 130 Balance -1612.800 250.01 Intake: IV 191 379 Albumin Human 5% 250 ml 250 In Empty Bag 1 bag @ 250 mls/hr IVPB Q1HR PRN Rx#: [id number] CO/CI 30 70 Lactated Ringers 1,000 ml 50 50 @ 50 mls/hr IV .Q20H LIYA Rx#:[id number] Pressure bags 9 9 Intake, IV Titration 1.200 1.01 Amount Clevidipine Butyrate 25 1.200 mg In Empty Bag 1 bag @ 1 MG/HR 2 mls/hr IV .Q24H LIYA Rx#:[id number] Insulin Regular 100 unit 1.01 In Sodium Chloride 0.9% 100 ml @ Per Protocol IV .Q0M LIYA Rx#:[id number] Output: Chest Tube Drainage 20 45 Left Pleural/Mediastinal 20 45 Urine 585 85 Estimated Blood Loss 1200 Other: Weight 82.8 kg GENERAL EXAM: Patient is intubated and sedated HEENT: Normocephalic. Normal reaction of pupils, equal size, normal range of extraocular motion. No erythema or exudates in the throat. NECK: No masses, no nuchal rigidity. CHEST: Postsurgical LUNGS: Equal air entry with no crackles or wheeze. HEART: S1 and S2 normal ABDOMEN: No hepatosplenomegaly, normal bowel sounds, no guarding or rigidity. SKIN: No rashes CENTRAL NERVOUS SYSTEM: Deferred EXTREMITIES: No cyanosis, clubbing or edema. Results 05/22/20 13:45 05/22/20 13:45 Cardiac Enzymes 05/22/20 Range/Units 13:45 AST 39 (17-59) U/L Coagulation 05/22/20 Range/Units 13:45 PT 11.0 (9.0-12.0) sec APTT 30.0 (22.0-30.0) sec CBC 05/22/20 Range/Units 13:45 WBC 12.5 H (3.8-10.6) k/uL RBC 3.54 L (4.30-5.90) m/uL Hgb 10.7 L (13.0-17.5) gm/dL Hct 31.4 L (39.0-53.0) % Plt Count 147 L (150-450) k/uL Comprehensive Metabolic Panel 05/22/20 Range/Units 13:45 Sodium 134 L (137-145) mmol/L Potassium 3.4 L (3.5-5.1) mmol/L Chloride 105 (98-107) mmol/L Carbon Dioxide 27 (22-30) mmol/L BUN 13 (9-20) mg/dL Creatinine 0.54 L (0.66-1.25) mg/dL Glucose 129 H (74-99) mg/dL Calcium 7.9 L (8.4-10.2) mg/dL AST 39 (17-59) U/L ALT 13 (4-49) U/L Alkaline Phosphatase 24 L (38-126) U/L Total Protein 4.5 L (6.3-8.2) g/dL Albumin 2.4 L (3.5-5.0) g/dL Current Medications Generic Name Dose Route Start Last Admin Trade Name Freq PRN Reason Stop Dose Admin Hydrocodone Bitart/Acetaminophen 2 each 05/23/20 01:07 Hydrocodone/Apap 5-325mg 1 Each Tab PO Q4HR PRN Severe Pain Hydrocodone Bitart/Acetaminophen 1 each 05/23/20 01:08 Hydrocodone/Apap 5-325mg 1 Each Tab PO Q4HR PRN Moderate Pain Albuterol/Ipratropium 3 ml 05/22/20 13:32 Ipratropium-Albuterol 3 Ml Neb INHALATION RT-Q2H PRN Shortness Of Breath Or Wheezing Albuterol/Ipratropium 3 ml 05/22/20 16:00 05/22/20 16:18 Ipratropium-Albuterol 3 Ml Neb INHALATION 05/22/20 19:09 3 ml RT-Q4H LIYA Administration Albuterol/Ipratropium 3 ml 05/22/20 20:00 Ipratropium-Albuterol 3 Ml Neb INHALATION RT-QID LIYA Aspirin 325 mg 05/23/20 09:00 Aspirin 325 Mg Tab PO DAILY [facility] Atorvastatin Calcium 40 mg 05/23/20 09:00 Atorvastatin 40 Mg Tab PO DAILY [facility] Benzocaine/Menthol 1 each 05/22/20 13:32 Benzocaine/Menthol Lozeng 1 Each Lozenge MUCOUS MEM Q2H PRN Sore Throat Bisacodyl 10 mg 05/23/20 09:00 Bisacodyl 10 Mg Supp RECTAL DAILY PRN Constipation Clopidogrel Bisulfate 75 mg 05/23/20 09:00 Clopidogrel 75 Mg Tab PO DAILY [facility] Heparin Sodium (Porcine) 5,000 unit 05/22/20 21:00 Heparin Sodium,Porcine 5,000 Unit/Ml 1 Ml Vial SQ Q8H LIYA Hydralazine HCl 10 mg 05/22/20 13:32 Hydralazine Hcl 20 Mg/Ml 1 Ml Vial IVP Q1H PRN Blood Pressure - High Clevidipine 25 mg/ IV Solution 50 mls @ 2 mls/hr 05/22/20 13:32 05/22/20 14:30 IV 8 mg/hr .Q24H LIYA 16 mls/hr Titration Protocol 1 MG/HR Nitroglycerin/Dextrose 50 mg/ 250 mls @ 1.5 mls/hr 05/22/20 13:32 05/22/20 14:32 IV Solution IV 5 mcg/min .Q24H LIYA 1.5 mls/hr Administration 5 MCG/MIN Amiodarone HCl 150 mg/ 103 mls @ 618 mls/hr 05/22/20 13:32 Dextrose/Water IV .Q10M PRN A.FIB/FLUTTER Protocol Amiodarone HCl 360 mg/ 200 mls @ 33.333 mls/hr 05/22/20 13:32 Dextrose/Water IV .Q6H PRN A.FIB/FLUTTER Protocol 1 MG/MIN Amiodarone HCl 300 mg/ 250 mls @ 25 mls/hr 05/22/20 13:32 Dextrose/Water IV .Q10H PRN A.FIB/FLUTTER Protocol 0.5 MG/MIN Albumin Human 250 ml/ IV 250 mls @ 250 mls/hr 05/22/20 13:32 05/22/20 15:23 Solution IVPB 05/24/20 13:33 250 mls/hr Q1HR PRN Administration For Volume Lactated Ringer's 1,000 mls @ 50 mls/hr 05/22/20 13:32 05/22/20 14:14 Lactated Ringers IV 50 mls/hr .Q20H LIYA Administration Propofol 1,000 mg/ IV Solution 100 mls @ 0 mls/hr 05/22/20 13:32 IV .Q0M LIYA Protocol Titrate Dexmedetomidine HCl 400 mcg/ 100 mls @ 0 mls/hr 05/22/20 13:32 IV Solution IV 05/23/20 13:33 .Q0M LIYA Protocol Titrate Acetaminophen 1,000 mg/ IV 100 mls @ 400 mls/hr 05/22/20 18:00 Solution IVPB 05/23/20 00:14 Q6HR LIYA Cefazolin Sodium 2 gm/ Sodium 50 mls @ 100 mls/hr 05/22/20 16:00 05/22/20 15:37 Chloride IVPB 05/23/20 08:29 100 mls/hr Q8HR LIYA Administration Calcium Gluconate 2 gm/ Sodium 120 mls @ 100 mls/hr 05/22/20 13:32 Chloride IVPB 06/21/20 13:33 ONCE PRN Ionized Calcium less than 4.4 Insulin Human Regular 100 unit 101 mls @ 0 mls/hr 05/22/20 13:32 05/22/20 16:11 / Sodium Chloride IV 1 units/hr .Q0M LIYA 1.01 mls/hr Titration Protocol Per Protocol Potassium Chloride 20 meq/ IV 100 mls @ 50 mls/hr 05/22/20 14:45 05/22/20 15:05 Solution IVPB 05/22/20 18:44 50 mls/hr Q2H LIYA Administration Protocol Ketorolac Tromethamine 15 mg 05/22/20 18:00 Ketorolac 15 Mg/Ml 1 Ml Vial IVP 05/25/20 15:16 Q6HR [facility] Magnesium Hydroxide 2,400 mg 05/23/20 09:00 Magnesium Hydroxide 2,400 Mg/10 Ml Cup PO BID PRN Constipation Metoclopramide HCl 10 mg 05/22/20 13:32 Metoclopramide 5 Mg/Ml 2 Ml Vial IVP Q4H PRN Nausea And Vomiting Metoprolol Tartrate 12.5 mg 05/23/20 09:00 Metoprolol Tartrate 12.5 Mg Tab PO BID [facility] Miscellaneous Information 1 each 05/22/20 13:32 Potassium Replacement Protocol 1 Each Misc MISCELLANE DAILY PRN Per Protocol Protocol Miscellaneous Information 1 each 05/22/20 13:32 Magnesium Replacement Protocol 1 Each Misc MISCELLANE DAILY PRN Per Protocol Protocol Miscellaneous Information 1 each 05/22/20 13:32 Phosphorus Replacement Protoco 1 Each Misc MISCELLANE DAILY PRN Per Protocol Protocol Ondansetron HCl 4 mg 05/22/20 13:32 Ondansetron 4 Mg/2 Ml Vial IVP Q6HR PRN Nausea And Vomiting Oxycodone HCl 10 mg 05/22/20 13:32 Oxycodone Hcl 5 Mg Tab PO 05/23/20 01:07 Q4H PRN Severe Pain Oxycodone HCl 5 mg 05/22/20 13:32 Oxycodone Hcl 5 Mg Tab PO 05/23/20 01:08 Q4H PRN Moderate Pain Pantoprazole Sodium 40 mg 05/23/20 09:00 Pantoprazole 40 Mg/10 Ml Vial IVP DAILY LIYA Senna/Docusate Sodium 2 each 05/23/20 21:00 Sennosides-Docusate Sodium 1 Each Tab PO HS LIYA Sodium Chloride 10 ml 05/22/20 21:00 Sodium Chloride 0.9% Flush 10 Ml Syringe IV BID LIYA Intake and Output 05/22/20 05/22/20 05/22/20 06:59 14:59 22:59 Intake Total 192.200 380.01 Output Total 1805 130 Balance -1612.800 250.01 Intake: IV 191 379 Albumin Human 5% 250 ml 250 In Empty Bag 1 bag @ 250 mls/hr IVPB Q1HR PRN Rx#: [id number] CO/CI 30 70 Lactated Ringers 1,000 ml 50 50 @ 50 mls/hr IV .Q20H LIYA Rx#:[id number] Pressure bags 9 9 Intake, IV Titration 1.200 1.01 Amount Clevidipine Butyrate 25 1.200 mg In Empty Bag 1 bag @ 1 MG/HR 2 mls/hr IV .Q24H LIYA Rx#:[id number] Insulin Regular 100 unit 1.01 In Sodium Chloride 0.9% 100 ml @ Per Protocol IV .Q0M LYIA Rx#:[id number] Output: Chest Tube Drainage 20 45 Left Pleural/Mediastinal 20 45 Urine 585 85 Estimated Blood Loss 1200 Other: Weight 82.8 kg 05/22/20 13:45 05/22/20 13:45 Assessment and Plan (1) Status post coronary artery bypass graft Current Visit: Yes Status: Acute Code(s): Z95.1 - PRESENCE OF AORTOCORONARY BYPASS GRAFT SNOMED Code(s): 575766850 (2) Triple vessel coronary artery disease Current Visit: Yes Status: Acute Code(s): I25.10 - ATHSCL HEART DISEASE OF [place] CORONARY ARTERY W/O ANG PCTRS SNOMED Code(s): 262813300 (3) Essential hypertension Current Visit: Yes Status: Acute Code(s): I10 - ESSENTIAL (PRIMARY) HYPERTENSION SNOMED Code(s): 12713593 (4) Diabetes mellitus Current Visit: Yes Status: Acute Code(s): E11.9 - TYPE 2 DIABETES MELLITUS WITHOUT COMPLICATIONS SNOMED Code(s): 00836360 Plan: Continue current management. Continue beta sarah. amiodarone as needed. We'll follow
[2020-05-22 17:07] LABS: Glucose,Whole Blood 153 mg/dL (75-99)
[2020-05-22 17:38] LABS: Basophils % (A) 0 %; Eosinophils % (A) 0 %; HCT 32.4 % (39.0-53.0); HGB 10.6 gm/dL (13.0-17.5); Lymphocytes # (A) 0.7 k/uL (1.0-4.8); Lymphocytes % (A) 5 %; MCH 29.7 pg (25.0-35.0); MCHC 32.8 g/dL (31.0-37.0); MCV 90.7 fL (80.0-100.0); Mean Platelet Volume 9.2; Monocytes # (A) 0.6 k/uL (0-1.0); Monocytes % (A) 4 %; Neutrophils # (A) 13.3 k/uL (1.3-7.7); Neutrophils % (A) 91 %; Platelet Count 161 k/uL (150-450); RBC 3.57 m/uL (4.30-5.90); WBC 14.7 k/uL (3.8-10.6)
[2020-05-22 18:10] LABS: Glucose,Whole Blood 169 mg/dL (75-99)
[2020-05-22] MEDS: ACETAMINOPHEN IV (For NPO) 1,000 MG in EMPTY BAG 1 BAG IVPB SCH ×2 (18:23→23:06)
[2020-05-22 18:55] LABS: Glucose,Whole Blood 158 mg/dL (75-99)
[2020-05-22] MEDS: KETOROLAC 15 MG/ML 1 ML VIAL IVP SCH ×2 (19:00→23:01)
[2020-05-22 19:10] LABS: Allen Test Performed? Yes
[2020-05-22 19:11] LABS: ABG HCO3 21 mmol/L (21-25); ABG PCO2 40 mmHg (35-45); ABG PH 7.33 (7.35-7.45); ABG PO2 157 mmHg (83-108)
[2020-05-22 19:12] LABS: ABG Base Excess -4.6 mmol/L; ABG Oxygen Saturation 99.6 % (94-97); ABG TCO2 23 mmol/L (19-24)
[2020-05-22] MEDS: IPRATROPIUM-ALBUTEROL 3 ML NEB INHALATION SCH (19:33)
[2020-05-22 19:52] LABS: Glucose,Whole Blood 151 mg/dL (75-99)
[2020-05-22 19:53] LABS: Basophils % (A) 0 %; Eosinophils # (A) 0.1 k/uL (0-0.7); Eosinophils % (A) 1 %; HCT 32.2 % (39.0-53.0); HGB 10.4 gm/dL (13.0-17.5); Lymphocytes # (A) 0.6 k/uL (1.0-4.8); Lymphocytes % (A) 5 %; MCH 29.1 pg (25.0-35.0); MCHC 32.3 g/dL (31.0-37.0); Mean Platelet Volume 8.6; Monocytes # (A) 0.5 k/uL (0-1.0); Monocytes % (A) 4 %; Neutrophils # (A) 11.6 k/uL (1.3-7.7); Neutrophils % (A) 91 %; Platelet Count 147 k/uL (150-450); RBC 3.57 m/uL (4.30-5.90); WBC 12.8 k/uL (3.8-10.6)
[2020-05-22 20:51] LABS: Glucose,Whole Blood 147 mg/dL (75-99)
[2020-05-22 21:59] LABS: Glucose,Whole Blood 143 mg/dL (75-99)
[2020-05-22] MEDS: HEPARIN SODIUM,PORCINE 5,000 UNIT/ML 1 ML VIAL SQ SCH (22:05)
[2020-05-22 22:40] LABS: Magnesium 2.3 mg/dL (1.6-2.3); Potassium 4.1 mmol/L (3.5-5.1)
[2020-05-22 22:54] LABS: Glucose,Whole Blood 118 mg/dL (75-99)
--- NOTE | 2020-05-22 23:51 | CONS ---
CONSULTATION DATE OF SERVICE: May 22, 2020 REASON FOR CONSULTATION: ICU management and ventilator management status post 3-vessel bypass grafting. A 74-year-old gentleman who was recently evaluated by Cardiology. The patient apparently had a positive stress test. He had disease in his LAD, circumflex and right coronary artery. The patient underwent a 3-vessel bypass grafting by Dr. Boone. Today is postop day #0. He is currently on SIMV mode, rate of 12, pressure support of 5, tidal volume 550, FiO2 of 40%, and PEEP of 5. He is on nitroglycerin at 5 mcg/minute, insulin at 2 units an hour and lactated Ringer's at 50 mL an hour, Precedex at 0.25 mcg/kg per hour and propofol has been off since 5 p.m. Currently, we are hoping to get the patient moved along and extubated as quick as possible. PAST MEDICAL HISTORY: Positive for asthma, CAD, CVA, diabetes, GERD, deafness, and hypertension. The patient also has a history of acoustic neuroma. SURGICAL HISTORY: Surgical history includes heart catheterization, hernia repair, bilateral detached retina, and colonoscopy. SOCIAL HISTORY: Positive for previous tobacco use. FAMILY HISTORY: Apparently positive for sister with melanoma, father with melanoma and permanent pacemaker insertion, a brother with cancer and mother with breast cancer. HOME MEDICATIONS: Home medications included Prilosec, metformin, vitamin D3, fish oil, vitamin E, aspirin, insulin, calcium, lisinopril, Lipitor, garlic, metoprolol and amlodipine. ALLERGIES: SULFA and PENICILLIN antibiotics. REVIEW OF SYSTEMS: Cannot be obtained. The patient is currently sedated. PHYSICAL EXAMINATION: VITAL SIGNS: Current vital signs include a temperature of 96.8, heart rate 60, respiratory rate 15, blood pressure 115/50, PAP of 38/21, a CVP of 10, and a saturation of 99%. GENERAL: Appears in no acute distress. HEENT: Examination is grossly unremarkable. There is an orally placed endotracheal tube and NG tube. NECK: Supple. Full range of motion. No adenopathy or thyromegaly. A Cordis catheter is noted. CARDIOVASCULAR: Examination reveals regular rhythm and rate. Heart rate mid 60s. S1, S2 normal. LUNGS: Reveal relatively clear breath sounds. A few scattered rhonchi. No wheezes or crackles. ABDOMEN: Soft. Bowel sounds are not heard. EXTREMITIES: Are intact. No edema. SKIN: Without rash. NEUROLOGIC: Examination cannot be adequately assessed. LABS: Labs are reviewed. White count 14.7, hemoglobin 10.6, hematocrit 32.4, platelet count 161,000. Blood gases show a pO2 of 152, pCO2 of 39, pH is 7.43, that was on an FiO2 of 60%. Subsequent to that, the FiO2 was dropped to 40%. Microbiology is pending or negative. A chest x-ray shows an endotracheal tube about 2 cm above the tracheal roro. Lung [place] are relatively clear. MEDICATIONS: Current medications are reviewed. ASSESSMENT: 1. Postoperative day #0, status post 3-vessel bypass grafting. 2. Routine postoperative ventilator management. 3. History of asthma. 4. History of coronary artery disease. 5. Cerebrovascular accident. 6. Diabetes. 7. Gastroesophageal reflux disease. 8. Deafness. 9. Hypertension. 10.History of acoustic neuroma. 11.Status post heart catheterization. PLAN: Currently, the patient is doing well. We will attempt to get him extubated quickly. He is currently not on any sedation. The propofol stopped at 5 p.m. He is currently on nitroglycerin at 5 mcg/minute, insulin at 2 units an hour, lactated Ringer's at 50 mL an hour and Precedex 0.25 mcg/kg per hour. We will continue to follow. No additional recommendations are made. Prognosis is guarded. MMODL / IJN: [id number] /
[2020-05-22 23:54] LABS: Glucose,Whole Blood 132 mg/dL (75-99)
[2020-05-23] MEDS: METOCLOPRAMIDE 5 MG/ML 2 ML VIAL IVP PRN (00:47)
[2020-05-23 00:58] LABS: Glucose,Whole Blood 117 mg/dL (75-99)
[2020-05-23] MEDS ORDERED: HYDROcodone/APAP 5-325MG 1 EACH TAB PO PRN ×2 (01:07→01:08)
[2020-05-23 01:53] LABS: Glucose,Whole Blood 119 mg/dL (75-99)
[2020-05-23 02:54] LABS: Glucose,Whole Blood 112 mg/dL (75-99)
--- NOTE | 2020-05-23 03:09 | OP ---
OPERATIVE REPORT DATE OF THE OPERATION: 05/22/2020 ATTENDING SURGEON: Dr. Tomas Boone. ASSIST: Moi Field and Brionna Banegas. PREOPERATIVE DIAGNOSES: 1. Unstable angina. 2. Severe calcific 3-vessel coronary artery disease. POSTOPERATIVE DIAGNOSES: 1. Unstable angina. 2. Severe calcific 3-vessel coronary artery disease. PROCEDURES: Coronary artery bypass grafting x3 with left internal mammary to left anterior descending artery, reverse saphenous vein graft off the aorta to the first obtuse marginal artery and the posterior descending artery with left lower extremity greater saphenous vein endoscopic vein harvesting, clip ligation of the left atrial appendage with a 35 mm AtriClip and intraoperative KYLIE. ANESTHESIA: General. BLOOD LOSS: 500 mL. SUMMARY: Patient brought to the operating room, placed in supine position. Upon administration of general endotracheal anesthetic, placement of a [place] catheter, arterial line, adequate IV access, Hear[place] catheter, patient carefully prepped and draped in normal sterile fashion using chlorhexidine paint and sterile towels. Greater saphenous vein was harvested from the left lower extremity via the endovascular vein harvesting technique. All branches were doubly tied and divided and the incisions closed in 2 layers. A midline incision in the chest was made and sternum divided. Pericardium was opened. Heart size was normal caliber. The aorta was relatively soft. Left pleural space was then opened. Left internal mammary artery harvested as a pedicle from the xiphoid to the left subclavian vein. It was of 2 mm quality with excellent flow. The patient was heparinized to with an ACT of greater than 480. The aorta and vena cava were cannulated. Antegrade and retrograde cardioplegic catheters positioned in the ascending aorta and the coronary sinus. Patient was placed on bypass, cross- clamp placed, heart arrested with 1 L of antegrade followed by 500 mL retrograde cardioplegia. Retrograde cardioplegia was delivered 300 to 500 mL at the end of each 20-minute interval. First the base of the left atrial appendage was measured and a 35 mm AtriClip was secured at the base officially obliterating the left atrial appendage. Distal anastomoses were constructed. Please note that all 3 coronary arteries were extremely heavily calcified. A reverse saphenous vein graft anastomosis to the posterior descending artery constructed using a 7-0 Prolene running suture. Caliber of this vessel was 1.25 to 1.5 mm. Next saphenous vein anastomosis to the first obtuse marginal artery was constructed in a similar fashion. Caliber of this vessel was 1.25 to 1.5 mm. Next, the left internal mammary artery was beveled and distal anastomosis to the mid left anterior descending artery constructed using a 7-0 Prolene running suture. Caliber of this vessel was 1.5 mm. Under single cross-clamp, two proximal anastomoses were constructed in the ascending aorta using 6-0 Prolene running suture. Patient was placed head down. The aortic root was vented. One liter of warm blood retrograde cardioplegia was run. Cross-clamp was removed. KYLIE showed excellent valvular ejection with no perivalvular leak. The vein grafts de-aired. Once beating normal sinus rhythm, the patient was brought off bypass. He came off bypass uneventfully with good hemodynamics. Protamine delivered. Patient decannulated. Atrial and ventricular pacing wires were placed. Mediastinal left pleural chest tubes were placed. At this point, the sternum was closed with four #6 sternal wires and 2 [id number] [place] sternal cable closure devices. Skin, subcutaneous tissue and fascia closed in 3 layers. No complications. The patient tolerated procedure well and was taken to the cardiovascular intensive care unit in stable condition. MMODL / IJN: [id number] / [id number]
[2020-05-23] MEDS: ALBUMIN HUMAN 5% 250 ML in EMPTY BAG 1 BAG IVPB PRN ×3 (03:15→16:57)
[2020-05-23 04:15] LABS: Glucose,Whole Blood 135 mg/dL (75-99)
[2020-05-23 04:26] LABS: Basophils % (A) 0 %; Eosinophils % (A) 0 %; HCT 31.2 % (39.0-53.0); HGB 10.6 gm/dL (13.0-17.5); Lymphocytes # (A) 0.8 k/uL (1.0-4.8); Lymphocytes % (A) 6 %; MCH 30.8 pg (25.0-35.0); MCHC 34.1 g/dL (31.0-37.0); MCV 90.5 fL (80.0-100.0); Mean Platelet Volume 8.8; Monocytes # (A) 0.6 k/uL (0-1.0); Monocytes % (A) 5 %; Neutrophils # (A) 11.1 k/uL (1.3-7.7); Neutrophils % (A) 88 %; Platelet Count 141 k/uL (150-450); RBC 3.44 m/uL (4.30-5.90); RDW 13.6 % (11.5-15.5); WBC 12.6 k/uL (3.8-10.6)
[2020-05-23 04:37] LABS: Ionized Calcium 4.8 mg/dL (4.5-5.3)
[2020-05-23 04:53] LABS: ALT 12 U/L (4-49); AST 39 U/L (17-59); African American GFR (CKD) >90 (>60 ml/min/1.73 sqM); Albumin 3.4 g/dL (3.5-5.0); Alkaline Phosphatase 36 U/L (38-126); Anion Gap 5 mmol/L; Blood Urea Nitrogen 10 mg/dL (9-20); Calcium 8.2 mg/dL (8.4-10.2); Carbon Dioxide 24 mmol/L (22-30); Chloride 105 mmol/L (98-107); Glucose 138 mg/dL (74-99); Magnesium 2.2 mg/dL (1.6-2.3); Non-African American GFR(CKD) >90 (>60 ml/min/1.73 sqM); Potassium 4.3 mmol/L (3.5-5.1); Sodium 134 mmol/L (137-145); Total Bilirubin 1.7 mg/dL (0.2-1.3); Total Protein 5.4 g/dL (6.3-8.2)
[2020-05-23 04:56] LABS: Glucose,Whole Blood 132 mg/dL (75-99)
[2020-05-23] MEDS: HEPARIN SODIUM,PORCINE 5,000 UNIT/ML 1 ML VIAL SQ SCH ×3 (05:47→21:31)
[2020-05-23] MEDS: KETOROLAC 15 MG/ML 1 ML VIAL IVP SCH ×4 (05:48→23:06)
[2020-05-23 06:03] LABS: Glucose,Whole Blood 124 mg/dL (75-99)
[2020-05-23] MEDS: CLEVIDIPINE BUTYRATE 25 MG in EMPTY BAG 1 BAG IV SCH (06:29)
[2020-05-23 06:54] LABS: Glucose,Whole Blood 110 mg/dL (75-99)
--- NOTE | 2020-05-23 07:14 | XR ---
EXAMINATION TYPE: XR chest 1V portable DATE OF EXAM: 05/23/2020 CLINICAL HISTORY: Postoperative CABG progress study. TECHNIQUE: Single AP portable upright view of the chest is obtained. COMPARISON: Chest x-ray from one day earlier and older studies. FINDINGS: Interval extubation with removal of endotracheal and orogastric tubes. 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 Stable mediastinal drainage catheter and left basilar chest tube. Post CABG changes with mediastinal clips and sternal wires along with left atrial appendage clip are all redemonstrated. Persistent cardiomegaly and low lung volumes with mild central vascular congestion. Persistent small right pleural effusion. Persistent bibasilar opacities. Osseous structures are intact. IMPRESSION: Interval extubation. Persistent cardiomegaly with mild central vascular congestion along with small right pleural effusion and bibasilar atelectasis and/or infiltrate are all redemonstrated.
--- NOTE | 2020-05-23 07:55 | P.PN ---
Subjective Progress Note Date: 05/23/20 Principal diagnosis: Unstable angina, severe calcific 3 vessel coronary artery disease. Previous medical history of recent stroke in November 2019 with continued short-term memory loss and impulsivity, cardiomyopathy with EF 45-50%, hypertension, hyperlipidemia, insulin-dependent diabetes with preoperative hemoglobin A1c 8%, asthma, previous tobacco dependence with preoperative FEV1 75% of predicted, and family history of premature coronary artery disease with father diagnosed less than 60 years old. POD #1 coronary artery bypass grafting 3 with the left internal mammary artery to the left anterior descending artery, reverse saphenous vein graft off the aorta to the first obtuse marginal artery and the posterior descending artery with endoscopic vein harvesting of the left lower extremity greater saphenous vein, clip ligation of the left atrial appendage with a 35 mm AtriClip and intraoperative transesophageal echocardiogram. Postoperative acute blood loss anemia and thrombocytopenia, expected outcomes given hemodilution and cardiopulmonary bypass pump The patient is currently sitting up in a recliner in no acute distress in the intensive care unit. He was successfully extubated last night at 19:22. Does complain occasionally of incisional type pain, denies shortness of breath. Patient has very short term memory loss, does not know what year it is, does not know why he is in the hospital. Remains in sinus rhythm to sinus bradycardia. Currently on IV Cleviprex for hypertension. Mediastinal, left pleural chest tubes, right internal jugular [place]ord[place], right radial arterial line all remain. Patient needs constant one-to-one supervision due to his forgetfulness and impulsivity. Objective - Vital Signs Vital signs: Vital Signs Temp 97.7 F 05/23/20 04:00 Pulse 61 05/23/20 07:00 Resp 21 05/23/20 07:00 BP 112/67 05/23/20 06:00 Pulse Ox 94 L 05/23/20 07:00 Intake & Output 05/22/20 05/23/20 05/23/20 18:59 06:59 18:59 Intake Total 4790.017 3209.540 90.5 Output Total 2350 1395 80 Balance -766.928 438.540 10.5 Weight 89.3 kg Intake: IV 1507 1704.5 90.5 ACETAMINOPHEN IV (For NPO 100 100 ) 1,000 mg In Empty Bag 1 bag @ 400 mls/hr IVPB Q6HR [facility] Rx#:[id number] Albumin Human 5% 250 ml 500 500 In Empty Bag 1 bag @ 250 mls/hr IVPB Q1HR PRN Rx#: [id number] CO/CI 210 330 30 Lactated Ringers 1,000 ml 250 600 50 @ 20 mls/hr IV .Q24H [facility] Rx#:[id number] Nitroglycerine 16.5 1.5 Potassium Chloride 20 meq 200 In Water For Injection 1 100ml.bag @ 50 mls/hr IVPB Q2H [facility] Rx#: [id number] Pressure bags 45 108 9 ceFAZolin 2 gm In Sodium 100 50 Chloride 0.9% 50 ml @ 100 mls/hr IVPB Q8HR [facility] Rx# :[id number] Intake, IV Titration 76.072 129.040 Amount Clevidipine Butyrate 25 25.533 60.900 mg In Empty Bag 1 bag @ 1 MG/HR 2 mls/hr IV .Q24H [facility] Rx#:[id number] Dexmedetomidine/0.9% NaCl 10.298 10.384 (Pmx) 400 mcg In Empty Bag 1 bag @ Titrate IV . Q0M [facility] Rx#:[id number] Insulin Regular 100 unit 7.121 57.756 In Sodium Chloride 0.9% 100 ml @ Per Protocol IV .Q0M [facility] Rx#:[id number] propofoL 1,000 mg In 33.12 Empty Bag 1 bag @ Titrate IV .Q0M [facility] Rx#: [id number] Output: Chest Tube Drainage 165 445 50 Left Pleural/Mediastinal 165 445 50 Urine 985 950 30 Estimated Blood Loss 1200 Other: Voiding Method Indwelling Catheter Indwelling Catheter ABP, PAP, CO, CI - Last Documented Arterial Blood Pressure 129/46 Pulmonary Artery Pressure 26/7 Cardiac Output 4.8 Cardiac Index 2.4 - Constitutional General appearance: Present: no acute distress - Respiratory Details: Lungs sounds diminished bilaterally. Respirations even, nonlabored. Currently on room air with oxygen saturation 97%. Able to achieve 500-600 mL on his incentive spirometry with much coaxing. Strong cough. Mediastinal/left pleural chest tubes present to continuous wall suction, 230 milliliters serosanguineous drainage overnight, 650 mL since surgery, no air leak present. - Cardiovascular Details: S1, S2 present. Regular rate and rhythm, sinus rhythm to sinus bradycardia on telemetry with heart rate in the high 50s to low 60s. Sternum stable. A/V epicardial pacemaker wires present, connected to generator, DDD mode with backup rate 50 bpm. Palpable peripheral pulses bilaterally. Trace bilateral lower extremity edema present. Heart hugger in place with patient not using ap propriately. Antiembolism stockings, SCDs present. Right internal jugular [place], right radial arterial line present. Last CO/CI 4.3/2.2 with PA pressures 28/8 and CVP 4-6 on no inotropes or pressors. - Gastrointestinal Gastrointestinal Comment(s): Abdomen soft, nontender, nondistended. Hypoactive bowel sounds present 4 quadrants. Tolerating clear liquids. - Genitourinary Genitourinary Comment(s): Hearn present draining clear, yellow urine. Output 30-50 mL per hour overnight - Integumentary Integumentary Comment(s): Skin is warm and dry with evidence perfusion. Anterior chest incision well approximated and covered with dry intact dressing. Left lower extremity EVH site well approximated without redness or drainage. - Neurologic Neurologic: Present: CNII-XII intact - Musculoskeletal Musculoskeletal: Present: strength equal bilaterally - Psychiatric Psychiatric Comment(s): Oriented to person only, does not know he is in the hospital, does not no areas, does not know why he is in the hospital. No encephalopathy, severe short-term memory loss from stroke - Allied health notes Allied health notes reviewed: nursing - Labs CBC & Chem 7: 05/23/20 04:00 05/23/20 04:00 Labs: Abnormal Lab Results - Last 24 Hours (Table) 05/15/20 05/22/20 05/22/20 Range/Units 09:00 08:46 10:33 WBC (3.8-10.6) k/uL RBC (4.30-5.90) m/uL Hgb (13.0-17.5) gm/dL Hct (39.0-53.0) % Plt Count (150-450) k/uL Neutrophils # (1.3-7.7) k/uL Lymphocytes # (1.0-4.8) k/uL ABG pH 7.46 H (7.35-7.45) ABG pCO2 34 L (35-45) mmHg ABG pO2 252 H 266 H (83-108) mmHg ABG Total CO2 26 H 25 H (19-24) mmol/L ABG O2 Saturation 99.9 H 99.8 H (94-97) % ABG Hematocrit (34.0-46.0) % ABG Sodium (135-146) mmol/L ABG Potassium 4.6 H (3.4-4.5) mmol/L ABG Ionized Calcium (4.5-5.3) mg/dL ABG Glucose 174 H 166 H (75-99) mg/dL ABG Lactic Acid (0.5-1.6) mmol/L Hemoglobin 12.5 L 11.5 L (13.0-17.5) gm/dL Sodium (137-145) mmol/L Potassium (3.5-5.1) mmol/L Creatinine (0.66-1.25) mg/dL Glucose (74-99) mg/dL POC Glucose (mg/dL) (75-99) mg/dL Calcium (8.4-10.2) mg/dL Magnesium (1.6-2.3) mg/dL Total Bilirubin (0.2-1.3) mg/dL Alkaline Phosphatase (38-126) U/L Total Protein (6.3-8.2) g/dL Albumin (3.5-5.0) g/dL Arterial Blood Potassium 4.6 H (3.4-4.5) mmol/L Arterial Blood Glucose 174 H 166 H (75-99) mg/dL Crossmatch See Detail 05/22/20 05/22/20 05/22/20 Range/Units 11:01 12:10 12:46 WBC (3.8-10.6) k/uL RBC (4.30-5.90) m/uL Hgb (13.0-17.5) gm/dL Hct (39.0-53.0) % Plt Count (150-450) k/uL Neutrophils # (1.3-7.7) k/uL Lymphocytes # (1.0-4.8) k/uL ABG pH (7.35-7.45) ABG pCO2 (35-45) mmHg ABG pO2 >420 H 263 H 377 H (83-108) mmHg ABG Total CO2 25 H 27 H 26 H (19-24) mmol/L ABG O2 Saturation 100.0 H 99.6 H 99.9 H (94-97) % ABG Hematocrit 24 L 24 L 27 L (34.0-46.0) % ABG Sodium 130 L (135-146) mmol/L ABG Potassium 5.2 H (3.4-4.5) mmol/L ABG Ionized Calcium 4.0 L 4.3 L 3.7 L (4.5-5.3) mg/dL ABG Glucose 247 H 182 H 182 H (75-99) mg/dL ABG Lactic Acid 1.8 H (0.5-1.6) mmol/L Hemoglobin 7.9 L 7.8 L 8.7 L (13.0-17.5) gm/dL Sodium (137-145) mmol/L Potassium (3.5-5.1) mmol/L Creatinine (0.66-1.25) mg/dL Glucose (74-99) mg/dL POC Glucose (mg/dL) (75-99) mg/dL Calcium (8.4-10.2) mg/dL Magnesium (1.6-2.3) mg/dL Total Bilirubin (0.2-1.3) mg/dL Alkaline Phosphatase (38-126) U/L Total Protein (6.3-8.2) g/dL Albumin (3.5-5.0) g/dL Arterial Blood Potassium 5.2 H (3.4-4.5) mmol/L Arterial Blood Glucose 247 H 182 H 182 H (75-99) mg/dL Crossmatch 05/22/20 05/22/20 05/22/20 Range/Units 13:45 13:45 13:46 WBC 12.5 H (3.8-10.6) k/uL RBC 3.54 L (4.30-5.90) m/uL Hgb 10.7 L (13.0-17.5) gm/dL Hct 31.4 L (39.0-53.0) % Plt Count 147 L (150-450) k/uL Neutrophils # 10.8 H (1.3-7.7) k/uL Lymphocytes # (1.0-4.8) k/uL ABG pH (7.35-7.45) ABG pCO2 (35-45) mmHg ABG pO2 (83-108) mmHg ABG Total CO2 (19-24) mmol/L ABG O2 Saturation (94-97) % ABG Hematocrit (34.0-46.0) % ABG Sodium (135-146) mmol/L ABG Potassium (3.4-4.5) mmol/L ABG Ionized Calcium (4.5-5.3) mg/dL ABG Glucose (75-99) mg/dL ABG Lactic Acid (0.5-1.6) mmol/L Hemoglobin (13.0-17.5) gm/dL Sodium 134 L (137-145) mmol/L Potassium 3.4 L (3.5-5.1) mmol/L Creatinine 0.54 L (0.66-1.25) mg/dL Glucose 129 H (74-99) mg/dL POC Glucose (mg/dL) 131 H (75-99) mg/dL Calcium 7.9 L (8.4-10.2) mg/dL Magnesium 2.4 H (1.6-2.3) mg/dL Total Bilirubin 1.6 H (0.2-1.3) mg/dL Alkaline Phosphatase 24 L (38-126) U/L Total Protein 4.5 L (6.3-8.2) g/dL Albumin 2.4 L (3.5-5.0) g/dL Arterial Blood Potassium (3.4-4.5) mmol/L Arterial Blood Glucose (75-99) mg/dL Crossmatch 05/22/20 05/22/20 05/22/20 Range/Units 14:06 14:08 14:59 WBC (3.8-10.6) k/uL RBC (4.30-5.90) m/uL Hgb (13.0-17.5) gm/dL Hct (39.0-53.0) % Plt Count (150-450) k/uL Neutrophils # (1.3-7.7) k/uL Lymphocytes # (1.0-4.8) k/uL ABG pH (7.35-7.45) ABG pCO2 (35-45) mmHg ABG pO2 152 H (83-108) mmHg ABG Total CO2 27 H (19-24) mmol/L ABG O2 Saturation 98.3 H (94-97) % ABG Hematocrit (34.0-46.0) % ABG Sodium (135-146) mmol/L ABG Potassium (3.4-4.5) mmol/L ABG Ionized Calcium (4.5-5.3) mg/dL ABG Glucose (75-99) mg/dL ABG Lactic Acid (0.5-1.6) mmol/L Hemoglobin (13.0-17.5) gm/dL Sodium (137-145) mmol/L Potassium (3.5-5.1) mmol/L Creatinine (0.66-1.25) mg/dL Glucose (74-99) mg/dL POC Glucose (mg/dL) 120 H 107 H (75-99) mg/dL Calcium (8.4-10.2) mg/dL Magnesium (1.6-2.3) mg/dL Total Bilirubin (0.2-1.3) mg/dL Alkaline Phosphatase (38-126) U/L Total Protein (6.3-8.2) g/dL Albumin (3.5-5.0) g/dL Arterial Blood Potassium (3.4-4.5) mmol/L Arterial Blood Glucose (75-99) mg/dL Crossmatch 05/22/20 05/22/20 05/22/20 Range/Units 16:10 17:06 17:30 WBC 14.7 H (3.8-10.6) k/uL RBC 3.57 L (4.30-5.90) m/uL Hgb 10.6 L (13.0-17.5) gm/dL Hct 32.4 L (39.0-53.0) % Plt Count (150-450) k/uL Neutrophils # 13.3 H (1.3-7.7) k/uL Lymphocytes # 0.7 L (1.0-4.8) k/uL ABG pH (7.35-7.45) ABG pCO2 (35-45) mmHg ABG pO2 (83-108) mmHg ABG Total CO2 (19-24) mmol/L ABG O2 Saturation (94-97) % ABG Hematocrit (34.0-46.0) % ABG Sodium (135-146) mmol/L ABG Potassium (3.4-4.5) mmol/L ABG Ionized Calcium (4.5-5.3) mg/dL ABG Glucose (75-99) mg/dL ABG Lactic Acid (0.5-1.6) mmol/L Hemoglobin (13.0-17.5) gm/dL Sodium (137-145) mmol/L Potassium (3.5-5.1) mmol/L Creatinine (0.66-1.25) mg/dL Glucose (74-99) mg/dL POC Glucose (mg/dL) 138 H 153 H (75-99) mg/dL Calcium (8.4-10.2) mg/dL Magnesium (1.6-2.3) mg/dL Total Bilirubin (0.2-1.3) mg/dL Alkaline Phosphatase (38-126) U/L Total Protein (6.3-8.2) g/dL Albumin (3.5-5.0) g/dL Arterial Blood Potassium (3.4-4.5) mmol/L Arterial Blood Glucose (75-99) mg/dL Crossmatch 05/22/20 05/22/20 05/22/20 Range/Units 18:09 18:54 18:54 WBC (3.8-10.6) k/uL RBC (4.30-5.90) m/uL Hgb (13.0-17.5) gm/dL Hct (39.0-53.0) % Plt Count (150-450) k/uL Neutrophils # (1.3-7.7) k/uL Lymphocytes # (1.0-4.8) k/uL ABG pH 7.33 L (7.35-7.45) ABG pCO2 (35-45) mmHg ABG pO2 157 H (83-108) mmHg ABG Total CO2 (19-24) mmol/L ABG O2 Saturation 99.6 H (94-97) % ABG Hematocrit (34.0-46.0) % ABG Sodium (135-146) mmol/L ABG Potassium (3.4-4.5) mmol/L ABG Ionized Calcium (4.5-5.3) mg/dL ABG Glucose (75-99) mg/dL ABG Lactic Acid (0.5-1.6) mmol/L Hemoglobin (13.0-17.5) gm/dL Sodium (137-145) mmol/L Potassium (3.5-5.1) mmol/L Creatinine (0.66-1.25) mg/dL Glucose (74-99) mg/dL POC Glucose (mg/dL) 169 H 158 H (75-99) mg/dL Calcium (8.4-10.2) mg/dL Magnesium (1.6-2.3) mg/dL Total Bilirubin (0.2-1.3) mg/dL Alkaline Phosphatase (38-126) U/L Total Protein (6.3-8.2) g/dL Albumin (3.5-5.0) g/dL Arterial Blood Potassium (3.4-4.5) mmol/L Arterial Blood Glucose (75-99) mg/dL Crossmatch 05/22/20 05/22/20 05/22/20 Range/Units 19:49 19:51 20:49 WBC 12.8 H (3.8-10.6) k/uL RBC 3.57 L (4.30-5.90) m/uL Hgb 10.4 L (13.0-17.5) gm/dL Hct 32.2 L (39.0-53.0) % Plt Count 147 L (150-450) k/uL Neutrophils # 11.6 H (1.3-7.7) k/uL Lymphocytes # 0.6 L (1.0-4.8) k/uL ABG pH (7.35-7.45) ABG pCO2 (35-45) mmHg ABG pO2 (83-108) mmHg ABG Total CO2 (19-24) mmol/L ABG O2 Saturation (94-97) % ABG Hematocrit (34.0-46.0) % ABG Sodium (135-146) mmol/L ABG Potassium (3.4-4.5) mmol/L ABG Ionized Calcium (4.5-5.3) mg/dL ABG Glucose (75-99) mg/dL ABG Lactic Acid (0.5-1.6) mmol/L Hemoglobin (13.0-17.5) gm/dL Sodium (137-145) mmol/L Potassium (3.5-5.1) mmol/L Creatinine (0.66-1.25) mg/dL Glucose (74-99) mg/dL POC Glucose (mg/dL) 151 H 147 H (75-99) mg/dL Calcium (8.4-10.2) mg/dL Magnesium (1.6-2.3) mg/dL Total Bilirubin (0.2-1.3) mg/dL Alkaline Phosphatase (38-126) U/L Total Protein (6.3-8.2) g/dL Albumin (3.5-5.0) g/dL Arterial Blood Potassium (3.4-4.5) mmol/L Arterial Blood Glucose (75-99) mg/dL Crossmatch 05/22/20 05/22/20 05/22/20 Range/Units 21:57 22:52 23:54 WBC (3.8-10.6) k/uL RBC (4.30-5.90) m/uL Hgb (13.0-17.5) gm/dL Hct (39.0-53.0) % Plt Count (150-450) k/uL Neutrophils # (1.3-7.7) k/uL Lymphocytes # (1.0-4.8) k/uL ABG pH (7.35-7.45) ABG pCO2 (35-45) mmHg ABG pO2 (83-108) mmHg ABG Total CO2 (19-24) mmol/L ABG O2 Saturation (94-97) % ABG Hematocrit (34.0-46.0) % ABG Sodium (135-146) mmol/L ABG Potassium (3.4-4.5) mmol/L ABG Ionized Calcium (4.5-5.3) mg/dL ABG Glucose (75-99) mg/dL ABG Lactic Acid (0.5-1.6) mmol/L Hemoglobin (13.0-17.5) gm/dL Sodium (137-145) mmol/L Potassium (3.5-5.1) mmol/L Creatinine (0.66-1.25) mg/dL Glucose (74-99) mg/dL POC Glucose (mg/dL) 143 H 118 H 132 H (75-99) mg/dL Calcium (8.4-10.2) mg/dL Magnesium (1.6-2.3) mg/dL Total Bilirubin (0.2-1.3) mg/dL Alkaline Phosphatase (38-126) U/L Total Protein (6.3-8.2) g/dL Albumin (3.5-5.0) g/dL Arterial Blood Potassium (3.4-4.5) mmol/L Arterial Blood Glucose (75-99) mg/dL Crossmatch 05/23/20 05/23/20 05/23/20 Range/Units 00:56 01:51 02:53 WBC (3.8-10.6) k/uL RBC (4.30-5.90) m/uL Hgb (13.0-17.5) gm/dL Hct (39.0-53.0) % Plt Count (150-450) k/uL Neutrophils # (1.3-7.7) k/uL Lymphocytes # (1.0-4.8) k/uL ABG pH (7.35-7.45) ABG pCO2 (35-45) mmHg ABG pO2 (83-108) mmHg ABG Total CO2 (19-24) mmol/L ABG O2 Saturation (94-97) % ABG Hematocrit (34.0-46.0) % ABG Sodium (135-146) mmol/L ABG Potassium (3.4-4.5) mmol/L ABG Ionized Calcium (4.5-5.3) mg/dL ABG Glucose (75-99) mg/dL ABG Lactic Acid (0.5-1.6) mmol/L Hemoglobin (13.0-17.5) gm/dL Sodium (137-145) mmol/L Potassium (3.5-5.1) mmol/L Creatinine (0.66-1.25) mg/dL Glucose (74-99) mg/dL POC Glucose (mg/dL) 117 H 119 H 112 H (75-99) mg/dL Calcium (8.4-10.2) mg/dL Magnesium (1.6-2.3) mg/dL Total Bilirubin (0.2-1.3) mg/dL Alkaline Phosphatase (38-126) U/L Total Protein (6.3-8.2) g/dL Albumin (3.5-5.0) g/dL Arterial Blood Potassium (3.4-4.5) mmol/L Arterial Blood Glucose (75-99) mg/dL Crossmatch 05/23/20 05/23/20 05/23/20 Range/Units 04:00 04:00 04:13 WBC 12.6 H (3.8-10.6) k/uL RBC 3.44 L (4.30-5.90) m/uL Hgb 10.6 L (13.0-17.5) gm/dL Hct 31.2 L (39.0-53.0) % Plt Count 141 L (150-450) k/uL Neutrophils # 11.1 H (1.3-7.7) k/uL Lymphocytes # 0.8 L (1.0-4.8) k/uL ABG pH (7.35-7.45) ABG pCO2 (35-45) mmHg ABG pO2 (83-108) mmHg ABG Total CO2 (19-24) mmol/L ABG O2 Saturation (94-97) % ABG Hematocrit (34.0-46.0) % ABG Sodium (135-146) mmol/L ABG Potassium (3.4-4.5) mmol/L ABG Ionized Calcium (4.5-5.3) mg/dL ABG Glucose (75-99) mg/dL ABG Lactic Acid (0.5-1.6) mmol/L Hemoglobin (13.0-17.5) gm/dL Sodium 134 L (137-145) mmol/L Potassium (3.5-5.1) mmol/L Creatinine 0.54 L (0.66-1.25) mg/dL Glucose 138 H (74-99) mg/dL POC Glucose (mg/dL) 135 H (75-99) mg/dL Calcium 8.2 L (8.4-10.2) mg/dL Magnesium (1.6-2.3) mg/dL Total Bilirubin 1.7 H (0.2-1.3) mg/dL Alkaline Phosphatase 36 L (38-126) U/L Total Protein 5.4 L (6.3-8.2) g/dL Albumin 3.4 L (3.5-5.0) g/dL Arterial Blood Potassium (3.4-4.5) mmol/L Arterial Blood Glucose (75-99) mg/dL Crossmatch 05/23/20 05/23/20 05/23/20 Range/Units 04:54 06:02 06:52 WBC (3.8-10.6) k/uL RBC (4.30-5.90) m/uL Hgb (13.0-17.5) gm/dL Hct (39.0-53.0) % Plt Count (150-450) k/uL Neutrophils # (1.3-7.7) k/uL Lymphocytes # (1.0-4.8) k/uL ABG pH (7.35-7.45) ABG pCO2 (35-45) mmHg ABG pO2 (83-108) mmHg ABG Total CO2 (19-24) mmol/L ABG O2 Saturation (94-97) % ABG Hematocrit (34.0-46.0) % ABG Sodium (135-146) mmol/L ABG Potassium (3.4-4.5) mmol/L ABG Ionized Calcium (4.5-5.3) mg/dL ABG Glucose (75-99) mg/dL ABG Lactic Acid (0.5-1.6) mmol/L Hemoglobin (13.0-17.5) gm/dL Sodium (137-145) mmol/L Potassium (3.5-5.1) mmol/L Creatinine (0.66-1.25) mg/dL Glucose (74-99) mg/dL POC Glucose (mg/dL) 132 H 124 H 110 H (75-99) mg/dL Calcium (8.4-10.2) mg/dL Magnesium (1.6-2.3) mg/dL Total Bilirubin (0.2-1.3) mg/dL Alkaline Phosphatase (38-126) U/L Total Protein (6.3-8.2) g/dL Albumin (3.5-5.0) g/dL Arterial Blood Potassium (3.4-4.5) mmol/L Arterial Blood Glucose (75-99) mg/dL Crossmatch - Imaging and Cardiology Chest x-ray: report reviewed, image reviewed Assessment and Plan Assessment: 1. Unstable angina, severe calcific 3 vessel coronary artery disease, status post three-vessel CABG 2. Recent stroke in November 2019 with continued short-term memory loss and impulsivity 3. Cardiomyopathy with EF 45-50% 4. Hypertension 5. Hyperlipidemia 6. Insulin-dependent diabetes with preoperative hemoglobin A1c 8% 7. Asthma 8. Previous tobacco dependence with preoperative FEV1 75% of predicted 9. Family history of premature coronary artery disease with father diagnosed less than 60 years old. 10. Postoperative acute blood loss anemia and thrombocytopenia, expected Plan: 1. Continue aspirin, statin, Plavix, beta sarah therapy. Will increase beta sarah therapy as tolerated. Wean Cleviprex as tolerated. Discontinue IV nitro 2. Encourage incentive spirometry use 10 times every hour while awake. Bronchodilators per pulmonology 3. Increase activity, ambulate as tolerated. PT/OT/cardiac rehab consulted 4. Will monitor daily labs and x-rays. Electrolyte replacement per protocol 5. GI/DVT prophylaxis 6. Pain control with current medication regimen 7. Insulin management per Dr. Tafoya 8. Reorient patient as necessary 9. Discontinue [place]. Connect Cordis to continuous CVP monitoring 10. Continue mediastinal/pleural chest tubes for another 24 hours 11. Continue Hearn catheter for another 24 hours. Strict accurate intake and output, daily weight with stand upscale, not bed scale 12. More recommendations to follow based on patient's progress Time with Patient: Greater than 30
[2020-05-23 08:09] LABS: Glucose,Whole Blood 130 mg/dL (75-99)
[2020-05-23] MEDS: IPRATROPIUM-ALBUTEROL 3 ML NEB INHALATION SCH ×4 (08:10→20:19)
[2020-05-23] MEDS: ASPIRIN 325 MG TAB PO SCH ×2 (08:15→10:57)
[2020-05-23] MEDS: CLOPIDOGREL 75 MG TAB PO SCH ×2 (08:15→10:59)
[2020-05-23] MEDS: ATORVASTATIN 40 MG TAB PO SCH ×2 (08:15→10:59)
[2020-05-23] MEDS ORDERED: METOPROLOL TARTRATE 12.5 MG TAB PO STA (08:16)
[2020-05-23] MEDS: LACTATED RINGERS 1,000 ML IV SCH ×2 (08:16→15:03)
[2020-05-23] MEDS ORDERED: CALCIUM GLUCONATE 1 GM in SODIUM CHLORIDE 0.9% 100 ML IVPB ONE (08:30)
[2020-05-23] MEDS ORDERED: PANTOPRAZOLE 40 MG/10 ML VIAL IVP SCH (09:00)
[2020-05-23] MEDS ORDERED: AMIODARONE 200 MG TAB PO SCH (09:00)
[2020-05-23] MEDS ORDERED: bisacodyL 10 MG SUPP RECTAL PRN (09:00)
[2020-05-23] MEDS ORDERED: MAGNESIUM HYDROXIDE 2,400 MG/10 ML CUP PO PRN (09:00)
[2020-05-23] MEDS ORDERED: METOPROLOL TARTRATE 12.5 MG TAB PO SCH ×2 (09:00→21:00)
[2020-05-23 09:07] LABS: Glucose,Whole Blood 124 mg/dL (75-99)
[2020-05-23] MEDS: QUEtiapine 50 MG TAB PO SCH (09:33)
[2020-05-23] MEDS: INSULIN DETEMIR (LEVEMIR) 100 UNIT/ML SYR SQ SCH (09:34)
[2020-05-23] MEDS: INSULIN ASPART (NovoLOG) 100 UNIT/ML VIAL SQ SCH ×4 (09:39→21:30)
[2020-05-23] MEDS ORDERED: HALOPERIDOL LACTATE 5 MG/ML 1 ML VIAL ONE (10:47)
[2020-05-23] MEDS ORDERED: LORazepam 2 MG/ML INJ IV ONE (10:59)
[2020-05-23] MEDS ORDERED: HALOPERIDOL LACTATE 5 MG/ML 1 ML VIAL IVP ONE (11:00)
[2020-05-23] MEDS ORDERED: LORazepam 2 MG/ML INJ ONE (11:01)
--- NOTE | 2020-05-23 11:42 | P.PN ---
Subjective Progress Note Date: 05/23/20 This is a pleasant 74-year-old gentleman with documented history of CVA in November of this year, ischemic cardio myopathy with documented ejection fraction 45-50%, hypertension, hyperlipidemia, diabetes, asthma, prior nicotine dependence, family history of premature coronary artery disease. He is status post coronary bypass grafting surgery 3 with a DOOLEY to the LAD, reverse saphenous vein graft to the first obtuse marginal and posterior descending artery with endoscopic vein harvesting of the left lower extremity greater saphenous vein, clip ligation of the left atrial appendage. Patient was seen and examined in the intensive care unit this morning, up in the chair at bedside. Continues to have a right internal jugular Dana Leticia in place, continues to have a mediastinal, and left chest tube in place as well as a Hearn catheter. Patient is mildly agitated and confused, continues to require one-on-one supervision. Blood pressure 117/70 with a heart rate in the 60s, 97% on room air. No lab data today. Objective - Vital Signs Vital signs: Vital Signs Temp 98.4 F 05/23/20 09:00 Pulse 69 05/23/20 11:00 Resp 22 05/23/20 11:00 BP 117/70 05/23/20 11:00 Pulse Ox 97 05/23/20 10:00 Intake & Output 05/22/20 05/23/20 05/23/20 18:59 06:59 18:59 Intake Total 3463.694 7286.540 739.010 Output Total 2350 1395 340 Balance -766.928 438.540 399.010 Weight 89.3 kg Intake: IV 1507 1704.5 610.5 ACETAMINOPHEN IV (For NPO 100 100 ) 1,000 mg In Empty Bag 1 bag @ 400 mls/hr IVPB Q6HR [facility] Rx#:[id number] Albumin Human 5% 250 ml 500 500 250 In Empty Bag 1 bag @ 250 mls/hr IVPB Q1HR PRN Rx#: [id number] CO/CI 210 330 80 Lactated Ringers 1,000 ml 250 600 190 @ 20 mls/hr IV .Q24H [facility] Rx#:[id number] Nitroglycerine 16.5 1.5 Potassium Chloride 20 meq 200 In Water For Injection 1 100ml.bag @ 50 mls/hr IVPB Q2H [facility] Rx#: [id number] Pressure bags 45 108 39 ceFAZolin 2 gm In Sodium 100 50 50 Chloride 0.9% 50 ml @ 100 mls/hr IVPB Q8HR [facility] Rx# :[id number] Intake, IV Titration 76.072 129.040 128.510 Amount Calcium Gluconate 1 gm In 100 Sodium Chloride 0.9% 100 ml @ 100 mls/hr IVPB ONCE ONE Rx#:[id number] Clevidipine Butyrate 25 25.533 60.900 11.567 mg In Empty Bag 1 bag @ 1 MG/HR 2 mls/hr IV .Q24H [facility] Rx#:[id number] Dexmedetomidine/0.9% NaCl 10.298 10.384 (Pmx) 400 mcg In Empty Bag 1 bag @ Titrate IV . Q0M [facility] Rx#:[id number] Insulin Regular 100 unit 7.121 57.756 16.943 In Sodium Chloride 0.9% 100 ml @ Per Protocol IV .Q0M [facility] Rx#:[id number] propofoL 1,000 mg In 33.12 Empty Bag 1 bag @ Titrate IV .Q0M [facility] Rx#: [id number] Output: Chest Tube Drainage 165 445 240 Left Pleural/Mediastinal 165 445 240 Urine 985 950 100 Estimated Blood Loss 1200 Other: Voiding Method Indwelling Catheter Indwelling Catheter ABP, PAP, CO, CI - Last Documented Arterial Blood Pressure 126/55 Pulmonary Artery Pressure 32/15 Cardiac Output 4.4 Cardiac Index 2.2 - Exam PHYSICAL EXAMINATION: GENERAL: 74-year-old gentleman in no acute distress at the time of my examination HEENT: Head is atraumatic, normocephalic. Pupils equal, round. Sclera anicteric. Conjunctiva are clear. Mucous membranes of the mouth are moist. Neck is supple. There is no elevated jugular venous pressure. Right internal jugular [place]/Cordis in place. No carotid bruit is heard. HEART EXAMINATION: Heart S1-S2, sternum stable, A/V epicardial pacemaker wires present, connected to generator, DDD mode with backup rate of 50. Heart hugger in place. CHEST EXAMINATION: Lungs reveal diminished air entry bilaterally to the bases. Patient is reaching about 500 on his incentive spirometry with much encouragement. Mediastinotomy/left pleural chest tubes present, to continuous wall suction. ABDOMEN: Soft, nontender. Bowel sounds are heard. No organomegaly noted. EXTREMITIES: 2+ peripheral pulses with trace evidence of peripheral edema, SCDs and antiembolism stockings in place. NEUROLOGIC patient is awake, alert and oriented 1 . . - Labs CBC & Chem 7: 05/23/20 04:00 05/23/20 04:00 Labs: Abnormal Lab Results - Last 24 Hours (Table) 05/15/20 05/22/20 05/22/20 Range/Units 09:00 08:46 10:33 WBC (3.8-10.6) k/uL RBC (4.30-5.90) m/uL Hgb (13.0-17.5) gm/dL Hct (39.0-53.0) % Plt Count (150-450) k/uL Neutrophils # (1.3-7.7) k/uL Lymphocytes # (1.0-4.8) k/uL ABG pH 7.46 H (7.35-7.45) ABG pCO2 34 L (35-45) mmHg ABG pO2 252 H 266 H (83-108) mmHg ABG Total CO2 26 H 25 H (19-24) mmol/L ABG O2 Saturation 99.9 H 99.8 H (94-97) % ABG Hematocrit (34.0-46.0) % ABG Sodium (135-146) mmol/L ABG Potassium 4.6 H (3.4-4.5) mmol/L ABG Ionized Calcium (4.5-5.3) mg/dL ABG Glucose 174 H 166 H (75-99) mg/dL ABG Lactic Acid (0.5-1.6) mmol/L Hemoglobin 12.5 L 11.5 L (13.0-17.5) gm/dL Sodium (137-145) mmol/L Potassium (3.5-5.1) mmol/L Creatinine (0.66-1.25) mg/dL Glucose (74-99) mg/dL POC Glucose (mg/dL) (75-99) mg/dL Calcium (8.4-10.2) mg/dL Magnesium (1.6-2.3) mg/dL Total Bilirubin (0.2-1.3) mg/dL Alkaline Phosphatase (38-126) U/L Total Protein (6.3-8.2) g/dL Albumin (3.5-5.0) g/dL Arterial Blood Potassium 4.6 H (3.4-4.5) mmol/L Arterial Blood Glucose 174 H 166 H (75-99) mg/dL Crossmatch See Detail 05/22/20 05/22/20 05/22/20 Range/Units 11:01 12:10 12:46 WBC (3.8-10.6) k/uL RBC (4.30-5.90) m/uL Hgb (13.0-17.5) gm/dL Hct (39.0-53.0) % Plt Count (150-450) k/uL Neutrophils # (1.3-7.7) k/uL Lymphocytes # (1.0-4.8) k/uL ABG pH (7.35-7.45) ABG pCO2 (35-45) mmHg ABG pO2 >420 H 263 H 377 H (83-108) mmHg ABG Total CO2 25 H 27 H 26 H (19-24) mmol/L ABG O2 Saturation 100.0 H 99.6 H 99.9 H (94-97) % ABG Hematocrit 24 L 24 L 27 L (34.0-46.0) % ABG Sodium 130 L (135-146) mmol/L ABG Potassium 5.2 H (3.4-4.5) mmol/L ABG Ionized Calcium 4.0 L 4.3 L 3.7 L (4.5-5.3) mg/dL ABG Glucose 247 H 182 H 182 H (75-99) mg/dL ABG Lactic Acid 1.8 H (0.5-1.6) mmol/L Hemoglobin 7.9 L 7.8 L 8.7 L (13.0-17.5) gm/dL Sodium (137-145) mmol/L Potassium (3.5-5.1) mmol/L Creatinine (0.66-1.25) mg/dL Glucose (74-99) mg/dL POC Glucose (mg/dL) (75-99) mg/dL Calcium (8.4-10.2) mg/dL Magnesium (1.6-2.3) mg/dL Total Bilirubin (0.2-1.3) mg/dL Alkaline Phosphatase (38-126) U/L Total Protein (6.3-8.2) g/dL Albumin (3.5-5.0) g/dL Arterial Blood Potassium 5.2 H (3.4-4.5) mmol/L Arterial Blood Glucose 247 H 182 H 182 H (75-99) mg/dL Crossmatch 05/22/20 05/22/20 05/22/20 Range/Units 13:45 13:45 13:46 WBC 12.5 H (3.8-10.6) k/uL RBC 3.54 L (4.30-5.90) m/uL Hgb 10.7 L (13.0-17.5) gm/dL Hct 31.4 L (39.0-53.0) % Plt Count 147 L (150-450) k/uL Neutrophils # 10.8 H (1.3-7.7) k/uL Lymphocytes # (1.0-4.8) k/uL ABG pH (7.35-7.45) ABG pCO2 (35-45) mmHg ABG pO2 (83-108) mmHg ABG Total CO2 (19-24) mmol/L ABG O2 Saturation (94-97) % ABG Hematocrit (34.0-46.0) % ABG Sodium (135-146) mmol/L ABG Potassium (3.4-4.5) mmol/L ABG Ionized Calcium (4.5-5.3) mg/dL ABG Glucose (75-99) mg/dL ABG Lactic Acid (0.5-1.6) mmol/L Hemoglobin (13.0-17.5) gm/dL Sodium 134 L (137-145) mmol/L Potassium 3.4 L (3.5-5.1) mmol/L Creatinine 0.54 L (0.66-1.25) mg/dL Glucose 129 H (74-99) mg/dL POC Glucose (mg/dL) 131 H (75-99) mg/dL Calcium 7.9 L (8.4-10.2) mg/dL Magnesium 2.4 H (1.6-2.3) mg/dL Total Bilirubin 1.6 H (0.2-1.3) mg/dL Alkaline Phosphatase 24 L (38-126) U/L Total Protein 4.5 L (6.3-8.2) g/dL Albumin 2.4 L (3.5-5.0) g/dL Arterial Blood Potassium (3.4-4.5) mmol/L Arterial Blood Glucose (75-99) mg/dL Crossmatch 05/22/20 05/22/20 05/22/20 Range/Units 14:06 14:08 14:59 WBC (3.8-10.6) k/uL RBC (4.30-5.90) m/uL Hgb (13.0-17.5) gm/dL Hct (39.0-53.0) % Plt Count (150-450) k/uL Neutrophils # (1.3-7.7) k/uL Lymphocytes # (1.0-4.8) k/uL ABG pH (7.35-7.45) ABG pCO2 (35-45) mmHg ABG pO2 152 H (83-108) mmHg ABG Total CO2 27 H (19-24) mmol/L ABG O2 Saturation 98.3 H (94-97) % ABG Hematocrit (34.0-46.0) % ABG Sodium (135-146) mmol/L ABG Potassium (3.4-4.5) mmol/L ABG Ionized Calcium (4.5-5.3) mg/dL ABG Glucose (75-99) mg/dL ABG Lactic Acid (0.5-1.6) mmol/L Hemoglobin (13.0-17.5) gm/dL Sodium (137-145) mmol/L Potassium (3.5-5.1) mmol/L Creatinine (0.66-1.25) mg/dL Glucose (74-99) mg/dL POC Glucose (mg/dL) 120 H 107 H (75-99) mg/dL Calcium (8.4-10.2) mg/dL Magnesium (1.6-2.3) mg/dL Total Bilirubin (0.2-1.3) mg/dL Alkaline Phosphatase (38-126) U/L Total Protein (6.3-8.2) g/dL Albumin (3.5-5.0) g/dL Arterial Blood Potassium (3.4-4.5) mmol/L Arterial Blood Glucose (75-99) mg/dL Crossmatch 05/22/20 05/22/20 05/22/20 Range/Units 16:10 17:06 17:30 WBC 14.7 H (3.8-10.6) k/uL RBC 3.57 L (4.30-5.90) m/uL Hgb 10.6 L (13.0-17.5) gm/dL Hct 32.4 L (39.0-53.0) % Plt Count (150-450) k/uL Neutrophils # 13.3 H (1.3-7.7) k/uL Lymphocytes # 0.7 L (1.0-4.8) k/uL ABG pH (7.35-7.45) ABG pCO2 (35-45) mmHg ABG pO2 (83-108) mmHg ABG Total CO2 (19-24) mmol/L ABG O2 Saturation (94-97) % ABG Hematocrit (34.0-46.0) % ABG Sodium (135-146) mmol/L ABG Potassium (3.4-4.5) mmol/L ABG Ionized Calcium (4.5-5.3) mg/dL ABG Glucose (75-99) mg/dL ABG Lactic Acid (0.5-1.6) mmol/L Hemoglobin (13.0-17.5) gm/dL Sodium (137-145) mmol/L Potassium (3.5-5.1) mmol/L Creatinine (0.66-1.25) mg/dL Glucose (74-99) mg/dL POC Glucose (mg/dL) 138 H 153 H (75-99) mg/dL Calcium (8.4-10.2) mg/dL Magnesium (1.6-2.3) mg/dL Total Bilirubin (0.2-1.3) mg/dL Alkaline Phosphatase (38-126) U/L Total Protein (6.3-8.2) g/dL Albumin (3.5-5.0) g/dL Arterial Blood Potassium (3.4-4.5) mmol/L Arterial Blood Glucose (75-99) mg/dL Crossmatch 05/22/20 05/22/20 05/22/20 Range/Units 18:09 18:54 18:54 WBC (3.8-10.6) k/uL RBC (4.30-5.90) m/uL Hgb (13.0-17.5) gm/dL Hct (39.0-53.0) % Plt Count (150-450) k/uL Neutrophils # (1.3-7.7) k/uL Lymphocytes # (1.0-4.8) k/uL ABG pH 7.33 L (7.35-7.45) ABG pCO2 (35-45) mmHg ABG pO2 157 H (83-108) mmHg ABG Total CO2 (19-24) mmol/L ABG O2 Saturation 99.6 H (94-97) % ABG Hematocrit (34.0-46.0) % ABG Sodium (135-146) mmol/L ABG Potassium (3.4-4.5) mmol/L ABG Ionized Calcium (4.5-5.3) mg/dL ABG Glucose (75-99) mg/dL ABG Lactic Acid (0.5-1.6) mmol/L Hemoglobin (13.0-17.5) gm/dL Sodium (137-145) mmol/L Potassium (3.5-5.1) mmol/L Creatinine (0.66-1.25) mg/dL Glucose (74-99) mg/dL POC Glucose (mg/dL) 169 H 158 H (75-99) mg/dL Calcium (8.4-10.2) mg/dL Magnesium (1.6-2.3) mg/dL Total Bilirubin (0.2-1.3) mg/dL Alkaline Phosphatase (38-126) U/L Total Protein (6.3-8.2) g/dL Albumin (3.5-5.0) g/dL Arterial Blood Potassium (3.4-4.5) mmol/L Arterial Blood Glucose (75-99) mg/dL Crossmatch 05/22/20 05/22/20 05/22/20 Range/Units 19:49 19:51 20:49 WBC 12.8 H (3.8-10.6) k/uL RBC 3.57 L (4.30-5.90) m/uL Hgb 10.4 L (13.0-17.5) gm/dL Hct 32.2 L (39.0-53.0) % Plt Count 147 L (150-450) k/uL Neutrophils # 11.6 H (1.3-7.7) k/uL Lymphocytes # 0.6 L (1.0-4.8) k/uL ABG pH (7.35-7.45) ABG pCO2 (35-45) mmHg ABG pO2 (83-108) mmHg ABG Total CO2 (19-24) mmol/L ABG O2 Saturation (94-97) % ABG Hematocrit (34.0-46.0) % ABG Sodium (135-146) mmol/L ABG Potassium (3.4-4.5) mmol/L ABG Ionized Calcium (4.5-5.3) mg/dL ABG Glucose (75-99) mg/dL ABG Lactic Acid (0.5-1.6) mmol/L Hemoglobin (13.0-17.5) gm/dL Sodium (137-145) mmol/L Potassium (3.5-5.1) mmol/L Creatinine (0.66-1.25) mg/dL Glucose (74-99) mg/dL POC Glucose (mg/dL) 151 H 147 H (75-99) mg/dL Calcium (8.4-10.2) mg/dL Magnesium (1.6-2.3) mg/dL Total Bilirubin (0.2-1.3) mg/dL Alkaline Phosphatase (38-126) U/L Total Protein (6.3-8.2) g/dL Albumin (3.5-5.0) g/dL Arterial Blood Potassium (3.4-4.5) mmol/L Arterial Blood Glucose (75-99) mg/dL Crossmatch 05/22/20 05/22/20 05/22/20 Range/Units 21:57 22:52 23:54 WBC (3.8-10.6) k/uL RBC (4.30-5.90) m/uL Hgb (13.0-17.5) gm/dL Hct (39.0-53.0) % Plt Count (150-450) k/uL Neutrophils # (1.3-7.7) k/uL Lymphocytes # (1.0-4.8) k/uL ABG pH (7.35-7.45) ABG pCO2 (35-45) mmHg ABG pO2 (83-108) mmHg ABG Total CO2 (19-24) mmol/L ABG O2 Saturation (94-97) % ABG Hematocrit (34.0-46.0) % ABG Sodium (135-146) mmol/L ABG Potassium (3.4-4.5) mmol/L ABG Ionized Calcium (4.5-5.3) mg/dL ABG Glucose (75-99) mg/dL ABG Lactic Acid (0.5-1.6) mmol/L Hemoglobin (13.0-17.5) gm/dL Sodium (137-145) mmol/L Potassium (3.5-5.1) mmol/L Creatinine (0.66-1.25) mg/dL Glucose (74-99) mg/dL POC Glucose (mg/dL) 143 H 118 H 132 H (75-99) mg/dL Calcium (8.4-10.2) mg/dL Magnesium (1.6-2.3) mg/dL Total Bilirubin (0.2-1.3) mg/dL Alkaline Phosphatase (38-126) U/L Total Protein (6.3-8.2) g/dL Albumin (3.5-5.0) g/dL Arterial Blood Potassium (3.4-4.5) mmol/L Arterial Blood Glucose (75-99) mg/dL Crossmatch 05/23/20 05/23/20 05/23/20 Range/Units 00:56 01:51 02:53 WBC (3.8-10.6) k/uL RBC (4.30-5.90) m/uL Hgb (13.0-17.5) gm/dL Hct (39.0-53.0) % Plt Count (150-450) k/uL Neutrophils # (1.3-7.7) k/uL Lymphocytes # (1.0-4.8) k/uL ABG pH (7.35-7.45) ABG pCO2 (35-45) mmHg ABG pO2 (83-108) mmHg ABG Total CO2 (19-24) mmol/L ABG O2 Saturation (94-97) % ABG Hematocrit (34.0-46.0) % ABG Sodium (135-146) mmol/L ABG Potassium (3.4-4.5) mmol/L ABG Ionized Calcium (4.5-5.3) mg/dL ABG Glucose (75-99) mg/dL ABG Lactic Acid (0.5-1.6) mmol/L Hemoglobin (13.0-17.5) gm/dL Sodium (137-145) mmol/L Potassium (3.5-5.1) mmol/L Creatinine (0.66-1.25) mg/dL Glucose (74-99) mg/dL POC Glucose (mg/dL) 117 H 119 H 112 H (75-99) mg/dL Calcium (8.4-10.2) mg/dL Magnesium (1.6-2.3) mg/dL Total Bilirubin (0.2-1.3) mg/dL Alkaline Phosphatase (38-126) U/L Total Protein (6.3-8.2) g/dL Albumin (3.5-5.0) g/dL Arterial Blood Potassium (3.4-4.5) mmol/L Arterial Blood Glucose (75-99) mg/dL Crossmatch 05/23/20 05/23/20 05/23/20 Range/Units 04:00 04:00 04:13 WBC 12.6 H (3.8-10.6) k/uL RBC 3.44 L (4.30-5.90) m/uL Hgb 10.6 L (13.0-17.5) gm/dL Hct 31.2 L (39.0-53.0) % Plt Count 141 L (150-450) k/uL Neutrophils # 11.1 H (1.3-7.7) k/uL Lymphocytes # 0.8 L (1.0-4.8) k/uL ABG pH (7.35-7.45) ABG pCO2 (35-45) mmHg ABG pO2 (83-108) mmHg ABG Total CO2 (19-24) mmol/L ABG O2 Saturation (94-97) % ABG Hematocrit (34.0-46.0) % ABG Sodium (135-146) mmol/L ABG Potassium (3.4-4.5) mmol/L ABG Ionized Calcium (4.5-5.3) mg/dL ABG Glucose (75-99) mg/dL ABG Lactic Acid (0.5-1.6) mmol/L Hemoglobin (13.0-17.5) gm/dL Sodium 134 L (137-145) mmol/L Potassium (3.5-5.1) mmol/L Creatinine 0.54 L (0.66-1.25) mg/dL Glucose 138 H (74-99) mg/dL POC Glucose (mg/dL) 135 H (75-99) mg/dL Calcium 8.2 L (8.4-10.2) mg/dL Magnesium (1.6-2.3) mg/dL Total Bilirubin 1.7 H (0.2-1.3) mg/dL Alkaline Phosphatase 36 L (38-126) U/L Total Protein 5.4 L (6.3-8.2) g/dL Albumin 3.4 L (3.5-5.0) g/dL Arterial Blood Potassium (3.4-4.5) mmol/L Arterial Blood Glucose (75-99) mg/dL Crossmatch 05/23/20 05/23/20 05/23/20 Range/Units 04:54 06:02 06:52 WBC (3.8-10.6) k/uL RBC (4.30-5.90) m/uL Hgb (13.0-17.5) gm/dL Hct (39.0-53.0) % Plt Count (150-450) k/uL Neutrophils # (1.3-7.7) k/uL Lymphocytes # (1.0-4.8) k/uL ABG pH (7.35-7.45) ABG pCO2 (35-45) mmHg ABG pO2 (83-108) mmHg ABG Total CO2 (19-24) mmol/L ABG O2 Saturation (94-97) % ABG Hematocrit (34.0-46.0) % ABG Sodium (135-146) mmol/L ABG Potassium (3.4-4.5) mmol/L ABG Ionized Calcium (4.5-5.3) mg/dL ABG Glucose (75-99) mg/dL ABG Lactic Acid (0.5-1.6) mmol/L Hemoglobin (13.0-17.5) gm/dL Sodium (137-145) mmol/L Potassium (3.5-5.1) mmol/L Creatinine (0.66-1.25) mg/dL Glucose (74-99) mg/dL POC Glucose (mg/dL) 132 H 124 H 110 H (75-99) mg/dL Calcium (8.4-10.2) mg/dL Magnesium (1.6-2.3) mg/dL Total Bilirubin (0.2-1.3) mg/dL Alkaline Phosphatase (38-126) U/L Total Protein (6.3-8.2) g/dL Albumin (3.5-5.0) g/dL Arterial Blood Potassium (3.4-4.5) mmol/L Arterial Blood Glucose (75-99) mg/dL Crossmatch 05/23/20 05/23/20 Range/Units 08:07 09:05 WBC (3.8-10.6) k/uL RBC (4.30-5.90) m/uL Hgb (13.0-17.5) gm/dL Hct (39.0-53.0) % Plt Count (150-450) k/uL Neutrophils # (1.3-7.7) k/uL Lymphocytes # (1.0-4.8) k/uL ABG pH (7.35-7.45) ABG pCO2 (35-45) mmHg ABG pO2 (83-108) mmHg ABG Total CO2 (19-24) mmol/L ABG O2 Saturation (94-97) % ABG Hematocrit (34.0-46.0) % ABG Sodium (135-146) mmol/L ABG Potassium (3.4-4.5) mmol/L ABG Ionized Calcium (4.5-5.3) mg/dL ABG Glucose (75-99) mg/dL ABG Lactic Acid (0.5-1.6) mmol/L Hemoglobin (13.0-17.5) gm/dL Sodium (137-145) mmol/L Potassium (3.5-5.1) mmol/L Creatinine (0.66-1.25) mg/dL Glucose (74-99) mg/dL POC Glucose (mg/dL) 130 H 124 H (75-99) mg/dL Calcium (8.4-10.2) mg/dL Magnesium (1.6-2.3) mg/dL Total Bilirubin (0.2-1.3) mg/dL Alkaline Phosphatase (38-126) U/L Total Protein (6.3-8.2) g/dL Albumin (3.5-5.0) g/dL Arterial Blood Potassium (3.4-4.5) mmol/L Arterial Blood Glucose (75-99) mg/dL Crossmatch Assessment and Plan Plan: Assessment and plan: 1. Unstable angina, severe 3 vessel coronary artery disease, status post three- vessel CABG 2. Recent stroke in November 2019 with continued short-term memory loss and impulsivity 3. Ischemic Cardiomyopathy with EF 45-50% 4. Hypertension 5. Hyperlipidemia 6. Insulin-dependent diabetes with preoperative hemoglobin A1c 8% 7. Asthma 8. Previous tobacco dependence with preoperative FEV1 75% of predicted 9. Family history of premature coronary artery disease with father diagnosed less than 60 years old. 10. Postoperative acute blood loss anemia and thrombocytopenia, expected Plan From cardiology's perspective, the patient's current medications have been reviewed which we will continue. Continue to monitor daily labs and x-rays. DNP note has been reviewed, I agree with a documented findings and plan of care. Patient was seen and examined.
--- NOTE | 2020-05-23 11:55 | PN ---
PROGRESS NOTE PULMONARY/CRITICAL CARE PROGRESS NOTE: DATE OF SERVICE: 05/23/2020 This is a 74-year-old gentleman who is postop day #1, he is status post 3-vessel bypass grafting done by Dr. Boone. I saw the patient yesterday in consultation. We were consulted for ICU management, and postoperative ventilator management. The patient was extubated less than 6 hours after leaving the operating room. Currently, he is on room air. He is getting lactated Ringer's at 50 mL an hour. He is also on Precedex 0.2 mcg/kg per hour. He is also on insulin drip of 5 units an hour. Clinically, he is doing relatively well. The patient is a bit demented and forgetful. Current vital signs are reviewed, temperature is 98.4, heart rate 69, respiratory rate 22, blood pressure 117/70, mean 85, saturations are 97% on room air. CVP is running 11. Appears in no acute distress. HEENT: Examination is grossly unremarkable. NECK: Supple, full range of motion. No adenopathy. Neck veins are flat. CARDIOVASCULAR: Examination reveals regular rhythm and rate. LUNGS: Reveal a few scattered rhonchi. No wheezes or crackles. ABDOMEN: Soft, bowel sounds are heard. EXTREMITIES: Intact. No cyanosis, clubbing, or edema. SKIN: Without rash. NEUROLOGIC: Examination is nonfocal. LABS: Reviewed. Currently, white count 12.6, hemoglobin 10.6, hematocrit 31.2, platelet count 141,000. Sodium 134, potassium 4.3, chloride is 105, CO2 is 24, anion gap is 5. BUN and creatinine were 10 and 0.54. Current microbiology is negative. A chest x-ray done today, shows typical postop changes. There are bilateral pleural effusions and bibasilar atelectasis. Current medications are reviewed. ASSESSMENT: 1. Postoperative day #1 status post 3-vessel bypass grafting. 2. Routine postoperative ventilator management, with extubation in less than 6 hours after leaving the operating room. 3. History of stable asthma. 4. History of coronary artery disease. 5. Cerebrovascular accident. 6. Diabetes mellitus. 7. Gastroesophageal reflux disease. 8. Deafness. 9. Hypertension. 10.History of acoustic neuroma. 11.Status post cardiac catheterization. PLAN: Currently, the patient is doing well. The Precedex will be discontinued in the near future. The patient is currently on lactated Ringer's and insulin drip. Insulin drip will also be turned off. He is not receiving any supplemental oxygen. The patient is encouraged to deep breathe, cough, clear secretions. The Precedex is currently running at 0.2 mcg/kg per hour. We will continue to follow. Prognosis is guarded. Critical care time 31 minutes. ROSARIO / CONOR: [id number] /
[2020-05-23 12:25] LABS: Glucose,Whole Blood 135 mg/dL (75-99)
[2020-05-23] MEDS: LORazepam 2 MG/ML INJ IV PRN ×3 (13:36→17:58)
--- NOTE | 2020-05-23 16:14 | P.CONS ---
History of Present Illness - Reason for Consult Consult date: 05/23/20 medical eval - Chief Complaint CABG - History of Present Illness Marcos Perez is a 74 yo M with PMH of CAD, hx CVA with residual dementia, T2DM, HTN, HLD who is admitted s/p CABG. He is doing well today, hemodynamically stable and extubated, upright in chair. His sugars are controlled on insulin drip. Pt remains confused and agitated this morning, unable to remember the reason he is hospitalized and trying to remove lines and refusing oral medications. He has no specific concerns for me today. Review of Systems All systems: negative Constitutional: Denies chills, Denies fever Eyes: denies blurred vision, denies pain Ears, nose, mouth and throat: Denies headache, Denies sore throat Cardiovascular: Denies chest pain, Denies shortness of breath Respiratory: Denies cough Gastrointestinal: Denies abdominal pain, Denies diarrhea, Denies nausea, Denies vomiting Musculoskeletal: Denies myalgias Integumentary: Denies pruritus, Denies rash Neurological: Denies numbness, Denies weakness Psychiatric: Reports as per HPI, Reports irritability, Reports memory loss, Reports paranoia, Denies anxiety, Denies depression Endocrine: Denies fatigue, Denies weight change Past Medical History Past Medical History: Asthma, Coronary Artery Disease (CAD), CVA/TIA, Diabetes Mellitus, GERD/Reflux, Hearing Disorder / Deafness, Hypertension Additional Past Medical History / Comment(s): HOSPITALIZATION 11/30/19 TO 12/03/19 FOR LOW BLOOD SUGAR AND CVA., ACOUSTIC NEUROMA., [place] IN [place]-WORSE LEFT EAR, HEART MURMUR, HX RECEIVED FROM SISTER- SHE STATES "DISORIENTED " AT TIMES, SISTER LIVES WITH HIM., Walks with a cane, frequent falls History of Any Multi-Drug Resistant Organisms: None Reported Past Surgical History: Heart Catheterization, Hernia Repair Additional Past Surgical History / Comment(s): azam detached retina, colonoscopy Past Anesthesia/Blood Transfusion Reactions: No Reported Reaction Additional Past Anesthesia/Blood Transfusion Reaction / Comm: no hx blood transfusion Smoking Status: Former smoker - Past Family History Sister(s) Family Medical History: Cancer Additional Family Medical History / Comment(s): 2 SISTERS HAD MELANOMA Father Family Medical History: Cancer Additional Family Medical History / Comment(s): MELANOMA; permanent pacemaker Brother(s) Family Medical History: Cancer Mother Family Medical History: Cancer Additional Family Medical History / Comment(s): BREAST CA Medications and Allergies Home Medications Medication Instructions Recorded Confirmed Type Omeprazole [PriLOSEC] 20 mg PO AC-BRKFST 01/19/16 05/17/20 History metFORMIN HCL 500 mg PO BID 01/19/16 05/17/20 History Cholecalciferol [Vitamin D3 (25 1,000 unit PO DAILY 10/31/17 05/17/20 History Mcg = 1000 Iu)] [place]-3 Fatty Acids/Fish Oil [Fish 1 cap PO DAILY 08/10/18 05/17/20 History Oil 1,000 mg Softgel] Vitamin E (Dl,Tocopheryl Acet) 400 unit PO DAILY 08/10/18 05/17/20 History [Vitamin E] Aspirin 325 mg PO DAILY #30 tab 12/03/19 05/17/20 Rx Insuln Asp Prt/Insulin Aspart 25 unit SQ HS #0 12/03/19 05/17/20 Rx [NovoLOG MIX 70-30 VIAL] Insuln Asp Prt/Insulin Aspart 50 unit SQ QAM #0 12/03/19 05/17/20 Rx [NovoLOG MIX 70-30 VIAL] Calcium Carbonate [Calcium] 600 mg PO DAILY 03/01/20 05/17/20 History lisinopriL [Zestril] 10 mg PO DAILY 03/01/20 05/17/20 History Atorvastatin [Lipitor] 80 mg PO DAILY #90 tab 03/03/20 05/17/20 Rx Garlic 1 each PO DAILY 05/17/20 05/17/20 History Metoprolol Tartrate [Lopressor] 25 mg PO BID 05/17/20 05/17/20 History amLODIPine [Norvasc] 10 mg PO QAM 05/17/20 05/17/20 History Allergies Allergy/AdvReac Type Severity Reaction Status Date / Time Sulfa (Sulfonamide Allergy Unknown Rash/Hives Verified 05/22/20 06:06 Antibiotics) Penicillins Allergy "passed Verified 05/22/20 06:06 out" Physical Exam Vitals: Vital Signs Temp Pulse Resp BP Pulse Ox 05/23/20 15:00 70 16 113/60 96 05/23/20 14:00 69 22 112/88 95 05/23/20 13:00 70 22 101/63 95 12/01/20 12:00 69 25 H 105/63 96 05/23/20 11:00 69 22 117/70 05/23/20 10:00 80 16 113/65 97 05/23/20 09:00 98.4 F 80 21 101/60 95 05/23/20 08:00 98.4 F 54 L 16 121/62 94 L 05/23/20 07:00 61 21 94 L 05/23/20 06:00 61 21 112/67 94 L 05/23/20 05:00 59 L 22 94 L 05/23/20 04:00 97.7 F 60 22 93 L 05/23/20 03:00 56 L 20 92 L 05/23/20 02:00 61 20 95 05/23/20 01:00 65 22 97 05/23/20 00:04 59 L 19 97 05/23/20 00:00 97.3 F L 62 24 97 05/22/20 23:00 62 21 98 05/22/20 22:45 60 22 97 05/22/20 22:30 57 L 19 98 05/22/20 22:15 60 0 L 97 05/22/20 22:00 66 18 126/62 98 05/22/20 21:45 62 19 126/62 98 05/22/20 21:30 70 20 124/66 98 05/22/20 21:15 65 19 98 05/22/20 21:00 62 20 96 05/22/20 20:45 64 19 99 05/22/20 20:30 61 16 124/66 98 05/22/20 20:15 63 21 99 05/22/20 20:00 97.8 F 59 L 20 99 05/22/20 19:45 58 L 21 138/79 99 05/22/20 19:43 56 L 05/22/20 19:33 58 L 05/22/20 19:30 56 L 18 138/79 99 05/22/20 19:22 99 05/22/20 19:15 56 L 19 138/79 99 05/22/20 19:00 57 L 24 99 05/22/20 18:45 58 L 26 H 138/79 99 05/22/20 18:30 55 L 12 98 05/22/20 18:15 97.2 F L 56 L 12 99 05/22/20 18:00 59 L 12 98 05/22/20 17:45 57 L 12 98 05/22/20 17:30 60 12 99 05/22/20 17:15 58 L 14 98 05/22/20 17:00 60 15 99 05/22/20 16:45 59 L 12 97 05/22/20 16:30 54 L 12 100 05/22/20 16:25 54 L 05/22/20 16:18 56 L 05/22/20 16:15 56 L 12 100 Intake and Output 05/23/20 05/23/20 05/23/20 06:59 14:59 22:59 Intake Total 1200.037 898.010 53 Output Total 970 475 20 Balance 230.037 423.010 33 Intake: IV 1104.0 769.5 3 ACETAMINOPHEN IV (For NPO 100 ) 1,000 mg In Empty Bag 1 bag @ 400 mls/hr IVPB Q6HR [facility] Rx#:[id number] Albumin Human 5% 250 ml 250 250 In Empty Bag 1 bag @ 250 mls/hr IVPB Q1HR PRN Rx#: [id number] CO/CI 220 80 Lactated Ringers 1,000 ml 400 340 @ 20 mls/hr IV .Q24H [facility] Rx#:[id number] Nitroglycerine 12.0 1.5 Pressure bags 72 48 3 ceFAZolin 2 gm In Sodium 50 50 Chloride 0.9% 50 ml @ 100 mls/hr IVPB Q8HR [facility] Rx# :[id number] Intake, IV Titration 96.037 128.510 50 Amount Calcium Gluconate 1 gm In 100 Sodium Chloride 0.9% 100 ml @ 100 mls/hr IVPB ONCE ONE Rx#:[id number] Clevidipine Butyrate 25 50.000 11.567 mg In Empty Bag 1 bag @ 1 MG/HR 2 mls/hr IV .Q24H [facility] Rx#:[id number] Dexmedetomidine/0.9% NaCl 10.384 (Pmx) 400 mcg In Empty Bag 1 bag @ Titrate IV . Q0M [facility] Rx#:[id number] Insulin Regular 100 unit 35.653 16.943 In Sodium Chloride 0.9% 100 ml @ Per Protocol IV .Q0M [facility] Rx#:[id number] Lactated Ringers 1,000 ml 50 @ 50 mls/hr IV .Q20H [facility] Rx#:[id number] Output: Chest Tube Drainage 280 320 0 Left Pleural/Mediastinal 280 320 0 Urine 690 155 20 Other: Voiding Method Indwelling Catheter Indwelling Catheter Weight 89.3 kg ABP, PAP, CO, CI - Last 8 Hours Arterial Blood Pressure 126/55 Pulmonary Artery Pressure 32/15 Cardiac Output 4.4 Cardiac Index 2.2 General: well nourished, well developed. Upright in chest binder. Vitals reviewed Eyes: PERRL, EOMI, conjunctiva normal HENT: normocephalic, mucus membranes moist Neck: supple, no JVD Lungs: normal respiratory effort, no wheezes or rales CV: Regular rate and rhythm, no murmur. Peripheral pulses 2+ Abdomen: soft, nondistended, no organomegaly Lymph: no cervical or axillary LAD Skin: warm and dry. Neuro: oriented to self. irritable and anxious Results CBC & Chem 7: 05/23/20 04:00 05/23/20 04:00 Labs: Abnormal Lab Results - Last 24 Hours (Table) 05/15/20 05/22/20 05/22/20 Range/Units 09:00 16:10 17:06 WBC (3.8-10.6) k/uL RBC (4.30-5.90) m/uL Hgb (13.0-17.5) gm/dL Hct (39.0-53.0) % Plt Count (150-450) k/uL Neutrophils # (1.3-7.7) k/uL Lymphocytes # (1.0-4.8) k/uL ABG pH (7.35-7.45) ABG pO2 (83-108) mmHg ABG O2 Saturation (94-97) % Sodium (137-145) mmol/L Creatinine (0.66-1.25) mg/dL Glucose (74-99) mg/dL POC Glucose (mg/dL) 138 H 153 H (75-99) mg/dL Calcium (8.4-10.2) mg/dL Total Bilirubin (0.2-1.3) mg/dL Alkaline Phosphatase (38-126) U/L Total Protein (6.3-8.2) g/dL Albumin (3.5-5.0) g/dL Crossmatch See Detail 05/22/20 05/22/2020 Range/Units 17:30 18:09 18:54 WBC 14.7 H (3.8-10.6) k/uL RBC 3.57 L (4.30-5.90) m/uL Hgb 10.6 L (13.0-17.5) gm/dL Hct 32.4 L (39.0-53.0) % Plt Count (150-450) k/uL Neutrophils # 13.3 H (1.3-7.7) k/uL Lymphocytes # 0.7 L (1.0-4.8) k/uL ABG pH 7.33 L (7.35-7.45) ABG pO2 157 H (83-108) mmHg ABG O2 Saturation 99.6 H (94-97) % Sodium (137-145) mmol/L Creatinine (0.66-1.25) mg/dL Glucose (74-99) mg/dL POC Glucose (mg/dL) 169 H (75-99) mg/dL Calcium (8.4-10.2) mg/dL Total Bilirubin (0.2-1.3) mg/dL Alkaline Phosphatase (38-126) U/L Total Protein (6.3-8.2) g/dL Albumin (3.5-5.0) g/dL Crossmatch 05/22/20 05/22/20 05/22/20 Range/Units 18:54 19:49 19:51 WBC 12.8 H (3.8-10.6) k/uL RBC 3.57 L (4.30-5.90) m/uL Hgb 10.4 L (13.0-17.5) gm/dL Hct 32.2 L (39.0-53.0) % Plt Count 147 L (150-450) k/uL Neutrophils # 11.6 H (1.3-7.7) k/uL Lymphocytes # 0.6 L (1.0-4.8) k/uL ABG pH (7.35-7.45) ABG pO2 (83-108) mmHg ABG O2 Saturation (94-97) % Sodium (137-145) mmol/L Creatinine (0.66-1.25) mg/dL Glucose (74-99) mg/dL POC Glucose (mg/dL) 158 H 151 H (75-99) mg/dL Calcium (8.4-10.2) mg/dL Total Bilirubin (0.2-1.3) mg/dL Alkaline Phosphatase (38-126) U/L Total Protein (6.3-8.2) g/dL Albumin (3.5-5.0) g/dL Crossmatch 05/22/20 05/22/20 05/22/20 Range/Units 20:49 21:57 22:52 WBC (3.8-10.6) k/uL RBC (4.30-5.90) m/uL Hgb (13.0-17.5) gm/dL Hct (39.0-53.0) % Plt Count (150-450) k/uL Neutrophils # (1.3-7.7) k/uL Lymphocytes # (1.0-4.8) k/uL ABG pH (7.35-7.45) ABG pO2 (83-108) mmHg ABG O2 Saturation (94-97) % Sodium (137-145) mmol/L Creatinine (0.66-1.25) mg/dL Glucose (74-99) mg/dL POC Glucose (mg/dL) 147 H 143 H 118 H (75-99) mg/dL Calcium (8.4-10.2) mg/dL Total Bilirubin (0.2-1.3) mg/dL Alkaline Phosphatase (38-126) U/L Total Protein (6.3-8.2) g/dL Albumin (3.5-5.0) g/dL Crossmatch 05/22/20 05/23/20 05/23/20 Range/Units 23:54 00:56 01:51 WBC (3.8-10.6) k/uL RBC (4.30-5.90) m/uL Hgb (13.0-17.5) gm/dL Hct (39.0-53.0) % Plt Count (150-450) k/uL Neutrophils # (1.3-7.7) k/uL Lymphocytes # (1.0-4.8) k/uL ABG pH (7.35-7.45) ABG pO2 (83-108) mmHg ABG O2 Saturation (94-97) % Sodium (137-145) mmol/L Creatinine (0.66-1.25) mg/dL Glucose (74-99) mg/dL POC Glucose (mg/dL) 132 H 117 H 119 H (75-99) mg/dL Calcium (8.4-10.2) mg/dL Total Bilirubin (0.2-1.3) mg/dL Alkaline Phosphatase (38-126) U/L Total Protein (6.3-8.2) g/dL Albumin (3.5-5.0) g/dL Crossmatch 05/23/20 05/23/20 05/23/20 Range/Units 02:53 04:00 04:00 WBC 12.6 H (3.8-10.6) k/uL RBC 3.44 L (4.30-5.90) m/uL Hgb 10.6 L (13.0-17.5) gm/dL Hct 31.2 L (39.0-53.0) % Plt Count 141 L (150-450) k/uL Neutrophils # 11.1 H (1.3-7.7) k/uL Lymphocytes # 0.8 L (1.0-4.8) k/uL ABG pH (7.35-7.45) ABG pO2 (83-108) mmHg ABG O2 Saturation (94-97) % Sodium 134 L (137-145) mmol/L Creatinine 0.54 L (0.66-1.25) mg/dL Glucose 138 H (74-99) mg/dL POC Glucose (mg/dL) 112 H (75-99) mg/dL Calcium 8.2 L (8.4-10.2) mg/dL Total Bilirubin 1.7 H (0.2-1.3) mg/dL Alkaline Phosphatase 36 L (38-126) U/L Total Protein 5.4 L (6.3-8.2) g/dL Albumin 3.4 L (3.5-5.0) g/dL Crossmatch 05/23/20 05/23/20 05/23/20 Range/Units 04:13 04:54 06:02 WBC (3.8-10.6) k/uL RBC (4.30-5.90) m/uL Hgb (13.0-17.5) gm/dL Hct (39.0-53.0) % Plt Count (150-450) k/uL Neutrophils # (1.3-7.7) k/uL Lymphocytes # (1.0-4.8) k/uL ABG pH (7.35-7.45) ABG pO2 (83-108) mmHg ABG O2 Saturation (94-97) % Sodium (137-145) mmol/L Creatinine (0.66-1.25) mg/dL Glucose (74-99) mg/dL POC Glucose (mg/dL) 135 H 132 H 124 H (75-99) mg/dL Calcium (8.4-10.2) mg/dL Total Bilirubin (0.2-1.3) mg/dL Alkaline Phosphatase (38-126) U/L Total Protein (6.3-8.2) g/dL Albumin (3.5-5.0) g/dL Crossmatch 05/23/20 05/23/20 05/23/20 Range/Units 06:52 08:07 09:05 WBC (3.8-10.6) k/uL RBC (4.30-5.90) m/uL Hgb (13.0-17.5) gm/dL Hct (39.0-53.0) % Plt Count (150-450) k/uL Neutrophils # (1.3-7.7) k/uL Lymphocytes # (1.0-4.8) k/uL ABG pH (7.35-7.45) ABG pO2 (83-108) mmHg ABG O2 Saturation (94-97) % Sodium (137-145) mmol/L Creatinine (0.66-1.25) mg/dL Glucose (74-99) mg/dL POC Glucose (mg/dL) 110 H 130 H 124 H (75-99) mg/dL Calcium (8.4-10.2) mg/dL Total Bilirubin (0.2-1.3) mg/dL Alkaline Phosphatase (38-126) U/L Total Protein (6.3-8.2) g/dL Albumin (3.5-5.0) g/dL Crossmatch 05/23/20 Range/Units 12:23 WBC (3.8-10.6) k/uL RBC (4.30-5.90) m/uL Hgb (13.0-17.5) gm/dL Hct (39.0-53.0) % Plt Count (150-450) k/uL Neutrophils # (1.3-7.7) k/uL Lymphocytes # (1.0-4.8) k/uL ABG pH (7.35-7.45) ABG pO2 (83-108) mmHg ABG O2 Saturation (94-97) % Sodium (137-145) mmol/L Creatinine (0.66-1.25) mg/dL Glucose (74-99) mg/dL POC Glucose (mg/dL) 135 H (75-99) mg/dL Calcium (8.4-10.2) mg/dL Total Bilirubin (0.2-1.3) mg/dL Alkaline Phosphatase (38-126) U/L Total Protein (6.3-8.2) g/dL Albumin (3.5-5.0) g/dL Crossmatch Assessment and Plan (1) History of CVA with residual deficit Current Visit: Yes Status: Acute Code(s): I69.30 - UNSPECIFIED SEQUELAE OF CEREBRAL INFARCTION SNOMED Code(s): 852714537 (2) Type 2 diabetes mellitus Current Visit: Yes Status: Acute Code(s): E11.9 - TYPE 2 DIABETES MELLITUS WITHOUT COMPLICATIONS SNOMED Code(s): 30030414 (3) Dementia Current Visit: Yes Status: Acute Code(s): F03.90 - UNSPECIFIED DEMENTIA WITHOUT BEHAVIORAL DISTURBANCE SNOMED Code(s): 38506416 (4) Status post coronary artery bypass graft Current Visit: Yes Status: Acute Code(s): Z95.1 - PRESENCE OF AORTOCORONARY BYPASS GRAFT SNOMED Code(s): 335786854 (5) Triple vessel coronary artery disease Current Visit: Yes Status: Acute Code(s): I25.10 - ATHSCL HEART DISEASE OF [place] CORONARY ARTERY W/O ANG PCTRS SNOMED Code(s): 604866340 (6) Cerebral infarction, remote, resolved Current Visit: No Status: Acute Code(s): Z86.73 - PRSNL HX OF TIA (TIA), AND CEREB INFRC W/O RESID DEFICITS SNOMED Code(s): 157278295 Plan: 1. CAD s/p CABG. Mangement per CT surgery. Doing well. Encourage IS and early ambulation. Continue lopressor, ASA, plavix, lipitor 2. Hx CVA with deficit and dementia. Pt agitated today, likely due to combination of anesthesia and dementia. IV haldol x1. Start seroquel 50 mg qam 3. T2DM. Stop insulin drip and cover with levemir. Accuchecks and sliding scale DVT prophylaxis: heparin
[2020-05-23 16:53] LABS: Glucose,Whole Blood 161 mg/dL (75-99)
[2020-05-23] MEDS: ASPIRIN 300 MG SUPP RECTAL SCH (17:28)
[2020-05-23] MEDS: METOPROLOL TARTRATE 5 MG/5 ML VIAL IVP SCH ×2 (18:05→23:06)
[2020-05-23] MEDS ORDERED: METOPROLOL TARTRATE 25 MG TAB PO SCH (21:00)
[2020-05-23] MEDS: SENNOSIDES-DOCUSATE SODIUM 1 EACH TAB PO SCH (21:20)
[2020-05-23 21:21] LABS: Glucose,Whole Blood 160 mg/dL (75-99)
[2020-05-24] MEDS: CLEVIDIPINE BUTYRATE 25 MG in EMPTY BAG 1 BAG IV SCH ×3 (00:01→20:12)
[2020-05-24 03:05] LABS: Glucose,Whole Blood 156 mg/dL (75-99)
[2020-05-24] MEDS: INSULIN ASPART (NovoLOG) 100 UNIT/ML VIAL SQ SCH ×6 (03:14→20:28)
[2020-05-24 05:08] LABS: Basophils % (A) 0 %; Eosinophils # (A) 0.1 k/uL (0-0.7); Eosinophils % (A) 0 %; HCT 34.1 % (39.0-53.0); HGB 11.3 gm/dL (13.0-17.5); Lymphocytes # (A) 1.6 k/uL (1.0-4.8); Lymphocytes % (A) 12 %; MCH 30.6 pg (25.0-35.0); MCHC 33.2 g/dL (31.0-37.0); MCV 92.2 fL (80.0-100.0); Mean Platelet Volume 8.6; Monocytes # (A) 0.6 k/uL (0-1.0); Monocytes % (A) 5 %; Neutrophils # (A) 10.2 k/uL (1.3-7.7); Neutrophils % (A) 81 %; Platelet Count 127 k/uL (150-450); RDW 13.9 % (11.5-15.5); WBC 12.6 k/uL (3.8-10.6)
[2020-05-24 05:14] LABS: Ionized Calcium 4.9 mg/dL (4.5-5.3)
[2020-05-24] MEDS: METOPROLOL TARTRATE 5 MG/5 ML VIAL IVP SCH ×2 (05:22→12:50)
[2020-05-24] MEDS: HEPARIN SODIUM,PORCINE 5,000 UNIT/ML 1 ML VIAL SQ SCH ×3 (05:22→20:21)
[2020-05-24] MEDS: KETOROLAC 15 MG/ML 1 ML VIAL IVP SCH ×3 (05:22→17:27)
[2020-05-24 05:34] LABS: Glucose,Whole Blood 156 mg/dL (75-99)
[2020-05-24 05:39] LABS: ALT 15 U/L (4-49); AST 40 U/L (17-59); African American GFR (CKD) >90 (>60 ml/min/1.73 sqM); Albumin 3.6 g/dL (3.5-5.0); Alkaline Phosphatase 41 U/L (38-126); Anion Gap 4 mmol/L; Blood Urea Nitrogen 14 mg/dL (9-20); Calcium 8.5 mg/dL (8.4-10.2); Carbon Dioxide 28 mmol/L (22-30); Chloride 104 mmol/L (98-107); Glucose 159 mg/dL (74-99); Non-African American GFR(CKD) >90 (>60 ml/min/1.73 sqM); Potassium 4.3 mmol/L (3.5-5.1); Sodium 136 mmol/L (137-145); Total Protein 5.9 g/dL (6.3-8.2)
[2020-05-24] MEDS: INSULIN DETEMIR (LEVEMIR) 100 UNIT/ML SYR SQ SCH (06:32)
[2020-05-24] MEDS: IPRATROPIUM-ALBUTEROL 3 ML NEB INHALATION SCH ×4 (07:29→20:56)
[2020-05-24] MEDS ORDERED: FUROSEMIDE 10 MG/ML 4 ML VIAL IV STA (08:07)
[2020-05-24] MEDS: CLOPIDOGREL 75 MG TAB PO SCH (08:16)
[2020-05-24] MEDS: ASPIRIN 300 MG SUPP RECTAL SCH ×2 (08:16→13:26)
[2020-05-24] MEDS: PANTOPRAZOLE 40 MG/10 ML VIAL IVP SCH (08:16)
[2020-05-24] MEDS: ATORVASTATIN 40 MG TAB PO SCH (08:16)
[2020-05-24] MEDS: QUEtiapine 50 MG TAB PO SCH ×2 (08:16→20:37)
--- NOTE | 2020-05-24 08:26 | XR ---
EXAMINATION TYPE: XR chest 1V portable DATE OF EXAM: 05/24/2020 Comparison: 05/23/2020, 05/15/2020 Clinical History: 74-year-old male Post Operative Cardiac Surgery Findings: Median sternotomy wires are present with mediastinal drain. Left-sided chest tube. Right-sided [place]-G anz catheter removed. Mild diffuse interstitial opacity. Some linear bands of atelectasis at the righ t midlung and right base. Persistent patchy retrocardiac opacity. Heart remains mildly enlarged. Prom inent air below the right hemidiaphragm, suspected air within the hepatic flexure of the colon. Impression: 1. Correlate for continued pulmonary vascular congestion. Patchy retrocardiac opacity also persists, probable atelectasis versus patchy pulmonary edema. 2. Air below the right hemidiaphragm compatible with air in the hepatic flexure of the colon when com pared to the preoperative 05/15/2020 radiograph.
[2020-05-24 08:46] LABS: Glucose,Whole Blood 138 mg/dL (75-99)
--- NOTE | 2020-05-24 09:08 | P.PN ---
Subjective Progress Note Date: 05/24/20 This is a pleasant 74-year-old gentleman with documented history of CVA in November of this year, ischemic cardio myopathy with documented ejection fraction 45-50%, hypertension, hyperlipidemia, diabetes, asthma, prior nicotine dependence, family history of premature coronary artery disease. He is status post coronary bypass grafting surgery 3 with a DOOLEY to the LAD, reverse saphenous vein graft to the first obtuse marginal and posterior descending artery with endoscopic vein harvesting of the left lower extremity greater saphenous vein, clip ligation of the left atrial appendage. Patient was seen and examined in the intensive care unit this morning, up in the chair at bedside. Continues to have a right internal jugular Dana Leticia in place, continues to have a mediastinal, and left chest tube in place as well as a Hearn catheter. Patient is mildly agitated and confused, continues to require one-on-one supervision. Blood pressure 117/70 with a heart rate in the 60s, 97% on room air. No lab data today. 05-24-2020 Patient was seen and examined this morning, continues to have episodes of confusion and aggressiveness. Pacemaker wires were removed this morning. Blood pressure 132/60 with a heart rate in the 70s, afebrile. 91% on 2 L of oxygen. White blood cell count 12.6, hemoglobin 11.3, platelet count 127. Sodium 136, potassium 4.3, BUN 14, creatinine 0.7. Objective - Vital Signs Vital signs: Vital Signs Temp 97.5 F L 05/24/20 08:00 Pulse 70 05/24/20 08:00 Resp 32 H 05/24/20 08:00 BP 130/67 05/24/20 08:00 Pulse Ox 91 L 05/24/20 08:00 Intake & Output 05/23/20 05/24/20 05/24/20 18:59 06:59 18:59 Intake Total 1150.010 913.966 146 Output Total 610 1380 250 Balance 540.010 -466.034 -104 Weight 86.5 kg Intake: IV 781.5 36 6 Albumin Human 5% 250 ml 250 In Empty Bag 1 bag @ 250 mls/hr IVPB Q1HR PRN Rx#: [id number] CO/CI 80 Lactated Ringers 1,000 ml 340 @ 20 mls/hr IV .Q24H [facility] Rx#:[id number] Nitroglycerine 1.5 Pressure bags 60 36 6 ceFAZolin 2 gm In Sodium 50 Chloride 0.9% 50 ml @ 100 mls/hr IVPB Q8HR [facility] Rx# :[id number] Intake, IV Titration 368.510 877.966 140 Amount Calcium Gluconate 1 gm In 100 Sodium Chloride 0.9% 100 ml @ 100 mls/hr IVPB ONCE ONE Rx#:[id number] Clevidipine Butyrate 25 11.567 37.966 mg In Empty Bag 1 bag @ 1 MG/HR 2 mls/hr IV .Q24H [facility] Rx#:[id number] Insulin Regular 100 unit 16.943 In Sodium Chloride 0.9% 100 ml @ Per Protocol IV .Q0M [facility] Rx#:[id number] Lactated Ringers 1,000 ml 240 840 140 @ 70 mls/hr IV .[id number] [facility] Rx#:[id number] Output: Chest Tube Drainage 390 510 50 Left Pleural/Mediastinal 390 510 50 Urine 220 870 200 Other: Voiding Method Indwelling Catheter Indwelling Catheter ABP, PAP, CO, CI - Last Documented Arterial Blood Pressure 126/55 Pulmonary Artery Pressure 32/15 Cardiac Output 4.4 Cardiac Index 2.2 - Exam PHYSICAL EXAMINATION: GENERAL: 74-year-old gentleman in no acute distress at the time of my examination HEENT: Head is atraumatic, normocephalic. Pupils equal, round. Sclera anicteric. Conjunctiva are clear. Mucous membranes of the mouth are moist. Nec k is supple. There is no elevated jugular venous pressure. No carotid bruit is heard. HEART EXAMINATION: Heart S1-S2, sternum stable, A/V epicardial pacemaker wires removed . Heart hugger in place. CHEST EXAMINATION: Lungs reveal diminished air entry bilaterally to the bases. Patient is reaching about 500 on his incentive spirometry with much encouragement. Mediastinotomy/left pleural chest tubes present, to continuous wall suction. ABDOMEN: Soft, nontender. Bowel sounds are heard. No organomegaly noted. EXTREMITIES: 2+ peripheral pulses with trace evidence of peripheral edema, SCDs and antiembolism stockings in place. NEUROLOGIC patient is awake, alert and oriented 1 . . - Labs CBC & Chem 7: 05/24/20 04:56 05/24/20 04:56 Labs: Abnormal Lab Results - Last 24 Hours (Table) 12/01/20 12/01/20 12/01/20 Range/Units 09:05 12:23 16:51 WBC (3.8-10.6) k/uL RBC (4.30-5.90) m/uL Hgb (13.0-17.5) gm/dL Hct (39.0-53.0) % Plt Count (150-450) k/uL Neutrophils # (1.3-7.7) k/uL Sodium (137-145) mmol/L Glucose (74-99) mg/dL POC Glucose (mg/dL) 124 H 135 H 161 H (75-99) mg/dL Total Bilirubin (0.2-1.3) mg/dL Total Protein (6.3-8.2) g/dL 05/23/20 05/24/20 05/24/20 Range/Units 21:19 03:02 04:56 WBC 12.6 H (3.8-10.6) k/uL RBC 3.70 L (4.30-5.90) m/uL Hgb 11.3 L (13.0-17.5) gm/dL Hct 34.1 L (39.0-53.0) % Plt Count 127 L (150-450) k/uL Neutrophils # 10.2 H (1.3-7.7) k/uL Sodium (137-145) mmol/L Glucose (74-99) mg/dL POC Glucose (mg/dL) 160 H 156 H (75-99) mg/dL Total Bilirubin (0.2-1.3) mg/dL Total Protein (6.3-8.2) g/dL 05/24/20 05/24/20 05/24/20 Range/Units 04:56 05:32 08:45 WBC (3.8-10.6) k/uL RBC (4.30-5.90) m/uL Hgb (13.0-17.5) gm/dL Hct (39.0-53.0) % Plt Count (150-450) k/uL Neutrophils # (1.3-7.7) k/uL Sodium 136 L (137-145) mmol/L Glucose 159 H (74-99) mg/dL POC Glucose (mg/dL) 156 H 138 H (75-99) mg/dL Total Bilirubin 2.0 H (0.2-1.3) mg/dL Total Protein 5.9 L (6.3-8.2) g/dL Assessment and Plan Plan: Assessment and plan: 1. Unstable angina, severe 3 vessel coronary artery disease, status post three- vessel CABG 2. Recent stroke in November 2019 with continued short-term memory loss and impulsivity 3. Ischemic Cardiomyopathy with EF 45-50% 4. Hypertension 5. Hyperlipidemia 6. Insulin-dependent diabetes with preoperative hemoglobin A1c 8% 7. Asthma 8. Previous tobacco dependence with preoperative FEV1 75% of predicted 9. Family history of premature coronary artery disease with father diagnosed less than 60 years old. 10. Postoperative acute blood loss anemia and thrombocytopenia, expected Plan From cardiology's perspective, the patient's current medications have been reviewed which we will continue. Continue to monitor daily labs and x-rays. DNP note has been reviewed, I agree with a documented findings and plan of care. Patient was seen and examined.
--- NOTE | 2020-05-24 09:37 | P.PN ---
Subjective Progress Note Date: 05/24/20 Principal diagnosis: Unstable angina, severe calcific 3 vessel coronary artery disease. Past medical history significant for recent stroke in November 2019 with continued short-term m jackson loss and impulsivity, cardiomyopathy with EF 45-50%, hypertension, hyperlipidemia, insulin-dependent diabetes with preoperative hemoglobin A1c 8%, asthma, previous tobacco dependence with preoperative FEV1 75% of predicted, and family history of premature coronary artery disease with father diagnosed less than 60 years old. POD #2 coronary artery bypass grafting 3 with the left internal mammary artery to the left anterior descending artery, a reverse greater saphenous vein graft off the aorta to the first obtuse marginal artery and the posterior descending artery with endoscopic vein harvesting of the left lower extremity greater saphenous vein, clip ligation of the left atrial appendage with a 35 mm AtriClip and intraoperative transesophageal echocardiogram. Postoperative acute blood loss anemia and thrombocytopenia, expected outcomes given hemodilution and cardiopulmonary bypass pump. Patient was seen in follow-up today at his bedside in the intensive care unit. Currently he is laying in bed, is awake, agitated and confused. Currently he is on Cleviprex drip at 5 mg per hour for some hypertension. Bedside telemetry showing normal sinus rhythm heart rate 61 BPM. Oxygen saturations are 94% on 2 L nasal cannula and he is unable to use his incentive spirometry due to his confusion at this time. Mediastinal and left pleural chest tubes remain in place to low continuous wall suction -20 cm H2O. Draining thin serosanguineous drainage. No air leak is present. Right IJ Cordis in place with continuous CVP monitoring, current CVP pressure 16 mmHg. The patient has a history of short- term memory loss and currently cannot state where he is, the date or why he is i the [facility]. Denies any complaints of pain or shortness of breath this time. Objective - Vital Signs Vital signs: Vital Signs Temp 97.5 F L 05/24/20 08:00 Pulse 70 05/24/20 08:00 Resp 32 H 05/24/20 08:00 BP 130/67 05/24/20 08:00 Pulse Ox 91 L 05/24/20 08:00 Intake & Output 05/23/20 05/24/20 05/24/20 18:59 06:59 18:59 Intake Total 1150.010 913.966 146 Output Total 610 1380 250 Balance 540.010 -466.034 -104 Weight 86.5 kg Intake: IV 781.5 36 6 Albumin Human 5% 250 ml 250 In Empty Bag 1 bag @ 250 mls/hr IVPB Q1HR PRN Rx#: [id number] CO/CI 80 Lactated Ringers 1,000 ml 340 @ 20 mls/hr IV .Q24H [facility] Rx#:[id number] Nitroglycerine 1.5 Pressure bags 60 36 6 ceFAZolin 2 gm In Sodium 50 Chloride 0.9% 50 ml @ 100 mls/hr IVPB Q8HR [facility] Rx# :[id number] Intake, IV Titration 368.510 877.966 140 Amount Calcium Gluconate 1 gm In 100 Sodium Chloride 0.9% 100 ml @ 100 mls/hr IVPB ONCE ONE Rx#:[id number] Clevidipine Butyrate 25 11.567 37.966 mg In Empty Bag 1 bag @ 1 MG/HR 2 mls/hr IV .Q24H [facility] Rx#:[id number] Insulin Regular 100 unit 16.943 In Sodium Chloride 0.9% 100 ml @ Per Protocol IV .Q0M [facility] Rx#:[id number] Lactated Ringers 1,000 ml 240 840 140 @ 70 mls/hr IV .[id number] [facility] Rx#:[id number] Output: Chest Tube Drainage 390 510 50 Left Pleural/Mediastinal 390 510 50 Urine 220 870 200 Other: Voiding Method Indwelling Catheter Indwelling Catheter ABP, PAP, CO, CI - Last Documented Arterial Blood Pressure 126/55 Pulmonary Artery Pressure 32/15 Cardiac Output 4.4 Cardiac Index 2.2 - Constitutional General appearance: Present: cooperative, no acute distress, obese - EENT Eyes: Present: normal appearance. Absent: scleral icterus ENT: Present: hearing grossly normal - Neck Details: Neck is supple, no JVD, right IJ Cordis in place with continuous CVP monitoring. - Respiratory Details: Lung sounds essentially clear to his bilateral upper lobes, diminished to his bilateral bases. No wheezes, rhonchi or crackles. Respirations are symmetrical and nonlabored. Oxygen saturation is 94% on 2 L nasal cannula. Unable to use his incentive spirometry due to his confusion. Strong cough. Mediastinal and l eft pleural chest tubes in place to low continuous wall suction -20 cm H2O. No air leak is present. Draining thin serosanguineous drainage with 340 mL output in the last 8 hours and 870 mL output in the last 24 hours. - Cardiovascular Details: Regular rhythm and rate. S1 and S2 present, negative for S3, gallop or murmur. Sternum is stable. Atrial and ventricular epicardial pacemaker wires in place and connected to back up to bedside pacemaker generator on a VVI at 50. Heart hugger is in place and the patient is unable to use his heart hugger due to his confusion. Knee-high DINA hose and sequential compression devices in place to his bilateral lower extremities. Right IJ Cordis in place with continuous CVP monitoring, current CVP pressure 16 mmHg. Trace edema to his bilateral lower extremities. - Gastrointestinal Gastrointestinal Comment(s): Abdomen is soft, nontender and nondistended. Active bowel sounds present in all 4 abdominal quadrants. No guarding or rigidity. Tolerating some clear liquids with much coaxing. - Genitourinary Genitourinary Comment(s): Hearn catheter for accurate I&O. Draining clear yellow urine, 925 mL output in the last 8 hours. - Integumentary Integumentary Comment(s): Skin is warm and dry. No clubbing or cyanosis is present. Midline sternal incision is clean, dry and approximated. No drainage or redness is present. Left lower extremity EVH site is clean, dry and approximated. No drainage or redness is present. - Neurologic Neurologic: Present: CNII-XII intact - Musculoskeletal Musculoskeletal: Present: generalized weakness, strength equal bilaterally - Psychiatric Psychiatric Comment(s): Agitated and confused. - Allied health notes Allied health notes reviewed: nursing - Labs CBC & Chem 7: 05/24/20 04:56 05/24/20 04:56 Labs: Abnormal Lab Results - Last 24 Hours (Table) 05/23/20 05/23/20 05/23/20 Range/Units 12:23 16:51 21:19 WBC (3.8-10.6) k/uL RBC (4.30-5.90) m/uL Hgb (13.0-17.5) gm/dL Hct (39.0-53.0) % Plt Count (150-450) k/uL Neutrophils # (1.3-7.7) k/uL Sodium (137-145) mmol/L Glucose (74-99) mg/dL POC Glucose (mg/dL) 135 H 161 H 160 H (75-99) mg/dL Total Bilirubin (0.2-1.3) mg/dL Total Protein (6.3-8.2) g/dL 05/24/20 05/24/20 05/24/20 Range/Units 03:02 04:56 04:56 WBC 12.6 H (3.8-10.6) k/uL RBC 3.70 L (4.30-5.90) m/uL Hgb 11.3 L (13.0-17.5) gm/dL Hct 34.1 L (39.0-53.0) % Plt Count 127 L (150-450) k/uL Neutrophils # 10.2 H (1.3-7.7) k/uL Sodium 136 L (137-145) mmol/L Glucose 159 H (74-99) mg/dL POC Glucose (mg/dL) 156 H (75-99) mg/dL Total Bilirubin 2.0 H (0.2-1.3) mg/dL Total Protein 5.9 L (6.3-8.2) g/dL 05/24/20 05/24/20 Range/Units 05:32 08:45 WBC (3.8-10.6) k/uL RBC (4.30-5.90) m/uL Hgb (13.0-17.5) gm/dL Hct (39.0-53.0) % Plt Count (150-450) k/uL Neutrophils # (1.3-7.7) k/uL Sodium (137-145) mmol/L Glucose (74-99) mg/dL POC Glucose (mg/dL) 156 H 138 H (75-99) mg/dL Total Bilirubin (0.2-1.3) mg/dL Total Protein (6.3-8.2) g/dL - Imaging and Cardiology Chest x-ray: report reviewed, image reviewed Assessment and Plan Assessment: 1. Unstable angina, severe calcific 3 vessel coronary artery disease, status post three-vessel CABG 2. Recent stroke in November 2019 with continued short-term memory loss and impulsivity 3. Cardiomyopathy with EF 45-50% 4. Hypertension 5. Hyperlipidemia 6. Insulin-dependent diabetes with preoperative hemoglobin A1c 8% 7. Asthma 8. Previous tobacco dependence with preoperative FEV1 75% of predicted 9. Family history of premature coronary artery disease with father diagnosed less than 60 years old. 10. Postoperative acute blood loss anemia and thrombocytopenia, expected Plan: 1. Continue aspirin, statin, Plavix, beta sarah. Will increase beta sarah as tolerated. Wean Cleviprex as tolerated. 2. Encourage incentive spirometry use 10 times every hour while awake. Bronchodilators per pulmonology. 3. Increase activity, ambulate as tolerated. PT/OT/cardiac rehab following. 4. Will monitor daily labs and chest x-rays. Electrolyte replacement per protocol. 5. GI/DVT prophylaxis 6. Pain control with current medication regimen. 7. Insulin management per Dr. Tafoya. 8. Reorient patient as necessary. Continue Seroquel. 9. Remove right IJ Cordis. 10. Mediastinal chest tube removed without incident. Vaseline impregnated gauze to cover, 4 x 4 gauze to cover and secured with tape. Keep left pleural chest tube in place to low continuous wall suction -20 cm H2O. Continue to record strict inaccurate I's and O's. 11. Continue Hearn catheter for another 24 hours. Strict accurate intake and output, daily weight with stand upscale, not bed scale 12. Atrial epicardial pacemaker wires removed without incident. Bed rest for 1 hour post pacemaker wire removal. Keep ventricular epicardial pacemaker wires in place and connected to a backup pacemaker generator at a VVI 50. 13. Lasix 40 mg IV 1 now. 14. More recommendations to follow based on patient's clinical course. Time with Patient: Greater than 30
--- NOTE | 2020-05-24 09:53 | P.PN ---
Subjective Progress Note Date: 05/24/20 Principal diagnosis: Coronary artery disease status post three-vessel coronary artery bypass grafting. Postoperative day #2 The patient is seen today 05/24/2020 in follow-up in the intensive care unit. This is postoperative day #2 of a 3 vessel coronary artery bypass surgery. He received a DOOLEY to the LAD, reverse saphenous vein grafts to the obtuse marginal artery and posterior descending artery. He has since been extubated. He is currently on 2 L/m per nasal cannula to maintain O2 saturations in the 90s. He has lactated Ringer's running at 70 mL's per hour. Currently on Cleviprexl drip at 5 mg per hour. Chest x-ray reveals pulmonary vascular congestion. Patchy retrocardiac opacity also persists. Most likely atelectasis versus patchy pulmonary edema. White count 12.6. Hemoglobin 11.3. Platelet count 127. Sodium 136. Potassium 4.3. Creatinine 0.76. Mediastinal chest tube and pacer wires removed today. Objective - Vital Signs Vital signs: Vital Signs Temp 97.5 F L 05/24/20 08:00 Pulse 70 05/24/20 08:00 Resp 32 H 05/24/20 08:00 BP 130/67 05/24/20 08:00 Pulse Ox 91 L 05/24/20 08:00 Intake & Output 05/23/20 05/24/20 05/24/20 18:59 06:59 18:59 Intake Total 1150.010 913.966 146 Output Total 610 1380 250 Balance 540.010 -466.034 -104 Weight 86.5 kg Intake: IV 781.5 36 6 Albumin Human 5% 250 ml 250 In Empty Bag 1 bag @ 250 mls/hr IVPB Q1HR PRN Rx#: [id number] CO/CI 80 Lactated Ringers 1,000 ml 340 @ 20 mls/hr IV .Q24H [facility] Rx#:[id number] Nitroglycerine 1.5 Pressure bags 60 36 6 ceFAZolin 2 gm In Sodium 50 Chloride 0.9% 50 ml @ 100 mls/hr IVPB Q8HR [facility] Rx# :[id number] Intake, IV Titration 368.510 877.966 140 Amount Calcium Gluconate 1 gm In 100 Sodium Chloride 0.9% 100 ml @ 100 mls/hr IVPB ONCE ONE Rx#:[id number] Clevidipine Butyrate 25 11.567 37.966 mg In Empty Bag 1 bag @ 1 MG/HR 2 mls/hr IV .Q24H [facility] Rx#:[id number] Insulin Regular 100 unit 16.943 In Sodium Chloride 0.9% 100 ml @ Per Protocol IV .Q0M [facility] Rx#:[id number] Lactated Ringers 1,000 ml 240 840 140 @ 70 mls/hr IV .[id number] [facility] Rx#:[id number] Output: Chest Tube Drainage 390 510 50 Left Pleural/Mediastinal 390 510 50 Urine 220 870 200 Other: Voiding Method Indwelling Catheter Indwelling Catheter ABP, PAP, CO, CI - Last Documented Arterial Blood Pressure 126/55 Pulmonary Artery Pressure 32/15 Cardiac Output 4.4 Cardiac Index 2.2 - Exam GENERAL EXAM: Alert, obese 74-year-old gentleman, on 2 L nasal cannula, comfortable in no apparent distress. HEAD: Normocephalic. EYES: Normal reaction of pupils, equal size. NOSE: Clear with pink turbinates. THROAT: No erythema or exudates. NECK: No masses, no JVD. CHEST: Sternal dressing dry and intact. No chest wall deformity. LUNGS: Equal air entry with crackles in the bilateral posterior bases.. CVS: S1 and S2 normal with no audible murmur, regular rhythm. ABDOMEN: No hepatosplenomegaly, normal bowel sounds, no guarding or rigidity. SPINE: No scoliosis or deformity SKIN: No rashes CENTRAL NERVOUS SYSTEM: No focal deficits, tone is normal in all 4 extremities. EXTREMITIES: There is no peripheral edema. No clubbing, no cyanosis. Peripheral pulses are intact. - Labs CBC & Chem 7: 05/24/20 04:56 05/24/20 04:56 Labs: Abnormal Lab Results - Last 24 Hours (Table) 05/23/20 05/23/20 05/23/20 Range/Units 12:23 16:51 21:19 WBC (3.8-10.6) k/uL RBC (4.30-5.90) m/uL Hgb (13.0-17.5) gm/dL Hct (39.0-53.0) % Plt Count (150-450) k/uL Neutrophils # (1.3-7.7) k/uL Sodium (137-145) mmol/L Glucose (74-99) mg/dL POC Glucose (mg/dL) 135 H 161 H 160 H (75-99) mg/dL Total Bilirubin (0.2-1.3) mg/dL Total Protein (6.3-8.2) g/dL 05/24/20 05/24/20 05/24/20 Range/Units 03:02 04:56 04:56 WBC 12.6 H (3.8-10.6) k/uL RBC 3.70 L (4.30-5.90) m/uL Hgb 11.3 L (13.0-17.5) gm/dL Hct 34.1 L (39.0-53.0) % Plt Count 127 L (150-450) k/uL Neutrophils # 10.2 H (1.3-7.7) k/uL Sodium 136 L (137-145) mmol/L Glucose 159 H (74-99) mg/dL POC Glucose (mg/dL) 156 H (75-99) mg/dL Total Bilirubin 2.0 H (0.2-1.3) mg/dL Total Protein 5.9 L (6.3-8.2) g/dL 05/24/20 05/24/20 Range/Units 05:32 08:45 WBC (3.8-10.6) k/uL RBC (4.30-5.90) m/uL Hgb (13.0-17.5) gm/dL Hct (39.0-53.0) % Plt Count (150-450) k/uL Neutrophils # (1.3-7.7) k/uL Sodium (137-145) mmol/L Glucose (74-99) mg/dL POC Glucose (mg/dL) 156 H 138 H (75-99) mg/dL Total Bilirubin (0.2-1.3) mg/dL Total Protein (6.3-8.2) g/dL Assessment and Plan Assessment: 1 Coronary artery disease status post three-vessel coronary artery bypass grafting 2 Ischemic cardiomyopathy with ejection fraction 45-50% 3 Hypertension 4 Hyperlipidemia 5 Diabetes mellitus 6 Chronic bronchial asthma 7 History of chronic tobacco dependence 8 Recent CVA in November 2019 Plan: The patient was seen and evaluated by Dr. Perdomo Chest x-ray and labs reviewed Lasix 40 mg IVP 1 today Continue to encourage increased use of incentive spirometer Increase activity as tolerated We will continue to follow and make further recommendations based on his clinical status I, the cosigning physician, performed a history & physical examination of the patient. Lungs sounds crackles in the bilateral posterior bases. Maintaining good O2 saturations in the 90s on 2 L/m per nasal cannula. I discussed the assessment and plan of care with my nurse practitioner, Katie Hinojosa. I attest to the above note as dictated by her.
[2020-05-24] MEDS ORDERED: HALOPERIDOL LACTATE 5 MG/ML 1 ML VIAL IVP ONE (10:46)
[2020-05-24] MEDS: LACTATED RINGERS 1,000 ML IV SCH (11:32)
[2020-05-24 11:53] LABS: Glucose,Whole Blood 167 mg/dL (75-99)
--- NOTE | 2020-05-24 12:55 | XR ---
EXAMINATION TYPE: XR chest 1V portable DATE OF EXAM: 05/24/2020 Comparison: Earlier today Clinical History: 74-year-old male Dobbhoff tube placement Findings: Interval placement of feeding tube. The weighted end is located below the diaphragm within the stomac h. It has not passed to the distal stomach. Prominent air below the right hemidiaphragm favored to re present air within the hepatic flexure of the colon as mentioned previously. As this air appears to b e increasing, an upright view of the abdomen and left decubitus view can confirm. Heart remains mildly enlarged. Mild diffuse interstitial prominence is unchanged. Median sternotomy w ires with post-CABG clips. Left-sided chest tube remains in place. Impression: 1. Dobbhoff feeding tube placed. The weighted end is in the proximal stomach. 2. Continued mild pulmonary vascular congestion. Slight improvement in aeration at the lung bases. 3. Prominent air persists below the right hemidiaphragm, favored to be within the hepatic flexure of the colon as mentioned previously. However, as the air appears to be increasing, clinical correlation as well as an upright view of the abdomen along with a left decubitus view can help exclude free int raperitoneal air.
[2020-05-24] MEDS: lisinopriL 10 MG TAB PO SCH (13:11)
[2020-05-24] MEDS: ASPIRIN 325 MG TAB NG-TUBE SCH (13:25)
--- NOTE | 2020-05-24 15:43 | P.PN ---
Subjective Progress Note Date: 05/24/20 Marcos Perez is a 74 yo M with PMH of CAD, hx CVA with residual dementia, T2DM, HTN, HLD who is admitted s/p CABG. He is doing well today, hemodynamically stable and extubated, upright in chair. His sugars are controlled on insulin drip. Pt remains confused and agitated this morning, unable to remember the reason he is hospitalized and trying to remove lines and refusing oral medications. He has no specific concerns for me today. 05/24/2020 Seroquel initiated yesterday. transportation services representative remains at bedside Patient's agitation/combativeness /impulsiveness improving-fluctuates. No further Haldol/Ativan since yesterday. Mediastinal chest tube removed. Currently on Cleveprex drip. Blood sugars controlled. Chest x-ray reporting continued mild pulmonary vascular congestion with slight improvement in bilateral base aeration. Prominent air persists below the right hemidiaphragm. Maintaining O2 sats in the 90s on 2 L nasal cannula. Afebrile, WBC 12.6. Objective - Vital Signs Vital signs: Vital Signs Temp 97.0 F L 05/24/20 12:00 Pulse 71 05/24/20 14:00 Resp 22 05/24/20 14:00 BP 130/64 05/24/20 14:00 Pulse Ox 93 L 05/24/20 14:00 Intake & Output 05/23/20 05/24/20 05/24/20 18:59 06:59 18:59 Intake Total 1150.010 913.966 581 Output Total 610 1380 2875 Balance 540.010 -466.034 -2294 Weight 86.5 kg 86.5 kg Intake: IV 781.5 36 441 Albumin Human 5% 250 ml 250 In Empty Bag 1 bag @ 250 mls/hr IVPB Q1HR PRN Rx#: [id number] CO/CI 80 LR 420 Lactated Ringers 1,000 ml 340 @ 20 mls/hr IV .Q24H [facility] Rx#:[id number] Nitroglycerine 1.5 Pressure bags 60 36 21 ceFAZolin 2 gm In Sodium 50 Chloride 0.9% 50 ml @ 100 mls/hr IVPB Q8HR [facility] Rx# :[id number] Intake, IV Titration 368.510 877.966 140 Amount Calcium Gluconate 1 gm In 100 Sodium Chloride 0.9% 100 ml @ 100 mls/hr IVPB ONCE ONE Rx#:[id number] Clevidipine Butyrate 25 11.567 37.966 mg In Empty Bag 1 bag @ 1 MG/HR 2 mls/hr IV .Q24H [facility] Rx#:[id number] Insulin Regular 100 unit 16.943 In Sodium Chloride 0.9% 100 ml @ Per Protocol IV .Q0M [facility] Rx#:[id number] Lactated Ringers 1,000 ml 240 840 140 @ 70 mls/hr IV .[id number] [facility] Rx#:[id number] Output: Chest Tube Drainage 390 510 125 Left Pleural/Mediastinal 390 510 50 Left pleural 75 Urine 918 134 9780 Other: Voiding Method Indwelling Catheter Indwelling Catheter Indwelling Catheter ABP, PAP, CO, CI - Last Documented Arterial Blood Pressure 126/55 Pulmonary Artery Pressure 32/15 Cardiac Output 4.4 Cardiac Index 2.2 - Exam General: well nourished, well developed. Sitting up in bed, napping Eyes: PERRL, EOMI, conjunctiva normal HENT: normocephalic, mucus membranes moist Neck: supple, no JVD Lungs: normal respiratory effort, scattered rhonchi, no wheezes, CV: Regular rate and rhythm, no murmur. Peripheral pulses 2+ Abdomen: soft, nondistended, no organomegaly Skin: warm and dry. Neuro: Currently unable to assess, patient sleeping. - Labs CBC & Chem 7: 05/24/20 04:56 05/24/20 04:56 Labs: Abnormal Lab Results - Last 24 Hours (Table) 05/23/20 05/23/20 05/24/20 Range/Units 16:51 21:19 03:02 WBC (3.8-10.6) k/uL RBC (4.30-5.90) m/uL Hgb (13.0-17.5) gm/dL Hct (39.0-53.0) % Plt Count (150-450) k/uL Neutrophils # (1.3-7.7) k/uL Sodium (137-145) mmol/L Glucose (74-99) mg/dL POC Glucose (mg/dL) 161 H 160 H 156 H (75-99) mg/dL Total Bilirubin (0.2-1.3) mg/dL Total Protein (6.3-8.2) g/dL 05/24/20 05/24/20 05/24/20 Range/Units 04:56 04:56 05:32 WBC 12.6 H (3.8-10.6) k/uL RBC 3.70 L (4.30-5.90) m/uL Hgb 11.3 L (13.0-17.5) gm/dL Hct 34.1 L (39.0-53.0) % Plt Count 127 L (150-450) k/uL Neutrophils # 10.2 H (1.3-7.7) k/uL Sodium 136 L (137-145) mmol/L Glucose 159 H (74-99) mg/dL POC Glucose (mg/dL) 156 H (75-99) mg/dL Total Bilirubin 2.0 H (0.2-1.3) mg/dL Total Protein 5.9 L (6.3-8.2) g/dL 05/24/20 05/24/20 Range/Units 08:45 11:50 WBC (3.8-10.6) k/uL RBC (4.30-5.90) m/uL Hgb (13.0-17.5) gm/dL Hct (39.0-53.0) % Plt Count (150-450) k/uL Neutrophils # (1.3-7.7) k/uL Sodium (137-145) mmol/L Glucose (74-99) mg/dL POC Glucose (mg/dL) 138 H 167 H (75-99) mg/dL Total Bilirubin (0.2-1.3) mg/dL Total Protein (6.3-8.2) g/dL Assessment and Plan Assessment: (1) Triple vessel coronary artery disease Current Visit: Yes Status: Acute Code(s): I25.10 - ATHSCL HEART DISEASE OF [place] CORONARY ARTERY W/O ANG PCTRS SNOMED Code(s): 759025865 (2)Status post coronary artery bypass graft Current Visit: Yes Status: Acute Code(s): Z95.1 - PRESENCE OF AORTOCORONARY BYPASS GRAFT SNOMED Code(s): 587128812 (3)History of CVA with residual deficit Current Visit: Yes Status: Acute Code(s): I69.30 - UNSPECIFIED SEQUELAE OF CEREBRAL INFARCTION SNOMED Code(s): 716900288 (4) Dementia Current Visit: Yes Status: Acute Code(s): F03.90 - UNSPECIFIED DEMENTIA WITHOUT BEHAVIORAL DISTURBANCE SNOMED Code(s): 58496356 (5) Type 2 diabetes mellitus Current Visit: Yes Status: Acute Code(s): E11.9 - TYPE 2 DIABETES MELLITUS WITHOUT COMPLICATIONS SNOMED Code(s): 37866764 Plan continue on current medication regime ,monitoring and symptomatic treatmen t. Maintain food safety director. Increase Seroquel to 50 mg twice a day. Aggressive pulmonary toileting, continue reinforcing incentive spirometer. Close monitoring of Accu-Cheks. Increase activity as tolerated. The impression and plan of care has been dictated as directed. : I performed a history and examination of this patient, discussed the same with the dictator. I agree with the dictator's note ,documented as a scribe. Any additional findings or plans will be noted.
[2020-05-24 17:12] LABS: ALT 13 U/L (4-49); AST 39 U/L (17-59); African American GFR (CKD) >90 (>60 ml/min/1.73 sqM); Albumin 3.4 g/dL (3.5-5.0); Alkaline Phosphatase 45 U/L (38-126); Anion Gap 4 mmol/L; Blood Urea Nitrogen 9 mg/dL (9-20); Calcium 8.7 mg/dL (8.4-10.2); Carbon Dioxide 31 mmol/L (22-30); Chloride 101 mmol/L (98-107); Glucose 142 mg/dL (74-99); Non-African American GFR(CKD) >90 (>60 ml/min/1.73 sqM); Sodium 136 mmol/L (137-145); Total Bilirubin 1.9 mg/dL (0.2-1.3); Total Protein 5.7 g/dL (6.3-8.2)
[2020-05-24] MEDS ORDERED: DEXMEDETOMIDINE/0.9% NACL(PMX) 400 MCG in EMPTY BAG 1 BAG IV SCH (20:15)
[2020-05-24] MEDS: METOPROLOL TARTRATE 25 MG TAB NG-TUBE SCH (20:21)
[2020-05-24] MEDS: SENNOSIDES-DOCUSATE SODIUM 1 EACH TAB PO SCH (20:21)
[2020-05-24 20:26] LABS: Glucose,Whole Blood 143 mg/dL (75-99)
[2020-05-24 20:36] LABS: T4, Free (Free Thyroxine) 1.32 ng/dL (0.78-2.19)
[2020-05-25] MEDS: KETOROLAC 15 MG/ML 1 ML VIAL IVP SCH ×3 (00:09→13:27)
[2020-05-25] MEDS: LACTATED RINGERS 1,000 ML IV SCH ×2 (00:09→17:15)
[2020-05-25] MEDS: CLEVIDIPINE BUTYRATE 25 MG in EMPTY BAG 1 BAG IV SCH (00:11)
[2020-05-25 00:56] LABS: Glucose,Whole Blood 185 mg/dL (75-99)
[2020-05-25] MEDS: INSULIN ASPART (NovoLOG) 100 UNIT/ML VIAL SQ SCH ×7 (01:37→23:19)
[2020-05-25 05:13] LABS: Glucose,Whole Blood 164 mg/dL (75-99)
[2020-05-25 05:37] LABS: Basophils # (A) 0.1 k/uL (0-0.2); Basophils % (A) 1 %; Eosinophils # (A) 0.2 k/uL (0-0.7); Eosinophils % (A) 2 %; HCT 31.6 % (39.0-53.0); HGB 10.5 gm/dL (13.0-17.5); Lymphocytes # (A) 1.5 k/uL (1.0-4.8); Lymphocytes % (A) 16 %; MCH 30.3 pg (25.0-35.0); MCHC 33.3 g/dL (31.0-37.0); Mean Platelet Volume 9.1; Monocytes # (A) 0.5 k/uL (0-1.0); Monocytes % (A) 6 %; Neutrophils # (A) 7.1 k/uL (1.3-7.7); Neutrophils % (A) 75 %; Platelet Count 137 k/uL (150-450); RBC 3.47 m/uL (4.30-5.90); RDW 13.6 % (11.5-15.5); WBC 9.5 k/uL (3.8-10.6)
[2020-05-25 05:54] LABS: Calcium 8.4 mg/dL (8.4-10.2); Potassium 4.2 mmol/L (3.5-5.1); Total Protein 5.3 g/dL (6.3-8.2)
--- NOTE | 2020-05-25 06:25 | XR ---
EXAMINATION TYPE: XR chest 1V portable DATE OF EXAM: 05/25/2020 CLINICAL HISTORY: Difficulty breathing progress study. Postoperative CABG TECHNIQUE: Single AP portable semiupright view of the chest is obtained. COMPARISON: Chest x-ray from one day earlier and older studies. FINDINGS: Stable positioning-weighted feeding catheter projecting below diaphragm. Overlying sternal wires and mediastinal clips redemonstrated. Left atrial appendage clip redemonstrated. There is persistent low lung volumes and cardiomegaly with central vascular congestion and left great er than right bibasilar opacities. Gas prominent bowel loops in the right upper to mid abdomen redemo nstrated. Osseous structures are intact. IMPRESSION: Low lung volumes and cardiomegaly with central vascular congestion and left greater than right bibasilar acute infiltrate and/or atelectasis are all redemonstrated. Suspect slight worsening of central vascular congestion from one day earlier.
[2020-05-25] MEDS: HEPARIN SODIUM,PORCINE 5,000 UNIT/ML 1 ML VIAL SQ SCH ×3 (06:32→23:02)
[2020-05-25] MEDS: INSULIN DETEMIR (LEVEMIR) 100 UNIT/ML SYR SQ SCH (06:33)
--- NOTE | 2020-05-25 07:29 | P.PN ---
Subjective Progress Note Date: 05/25/20 Principal diagnosis: Unstable angina, severe calcific 3 vessel coronary artery disease. Previous medical history of recent stroke in November 2019 with continued short-term memory loss and impulsivity, cardiomyopathy with EF 45-50%, hypertension, hyperlipidemia, insulin-dependent diabetes with preoperative hemoglobin A1c 8%, asthma, previous tobacco dependence with preoperative FEV1 75% of predicted, and family history of premature coronary artery disease with father diagnosed less than 60 years old. POD #3 coronary artery bypass grafting 3 with the left internal mammary artery to the left anterior descending artery, reverse saphenous vein graft off the aorta to the first obtuse marginal artery and the posterior descending artery with endoscopic vein harvesting of the left lower extremity greater saphenous vein, clip ligation of the left atrial appendage with a 35 mm AtriClip and intraoperative transesophageal echocardiogram. Postoperative acute blood loss anemia and thrombocytopenia, expected outcomes given hemodilution and cardiopulmonary bypass pump The patient is currently laying in bed in no acute distress in the intensive care unit. Patient has very short term memory loss, does not want to answer any questions this morning, upon questioning he gets quite agitated and calls everyone names. Remains in sinus bradycardia. Currently on and off IV Clevip taco, blood pressure has been labile. Patient needs constant one-to-one supervision due to his forgetfulness and impulsivity, 1:1 sitter at bedside. Has been maintained on Precedex and Seroquel for agitation, was given Haldol with no effect. Dobhoff placed yesterday as patient is refusing to eat/ drink/take any pills. Sister who he lives with has been contacted and does state that he gets like this at home. He is not maintaining sternal precautions. Hearn needed to be reinserted as patient had urine residual Objective - Vital Signs Vital signs: Vital Signs Temp 97.6 F 05/25/20 04:00 Pulse 61 05/25/20 06:00 Resp 21 05/25/20 06:00 BP 163/79 05/25/20 06:00 Pulse Ox 98 05/25/20 06:00 Intake & Output 05/24/20 05/25/20 05/25/20 18:59 06:59 18:59 Intake Total 911 913.516 Output Total 3110 650 Balance -2199 263.516 Weight 86.5 kg 86.4 kg Intake: IV 721 840 LR 700 840 Pressure bags 21 Intake, IV Titration 190 73.516 Amount Clevidipine Butyrate 25 50 32.100 mg In Empty Bag 1 bag @ 1 MG/HR 2 mls/hr IV .Q24H [facility] Rx#:[id number] Dexmedetomidine/0.9% NaCl 41.416 (Pmx) 400 mcg In Empty Bag 1 bag @ Titrate IV . Q0M [facility] Rx#:[id number] Lactated Ringers 1,000 ml 140 @ 70 mls/hr IV .[id number] [facility] Rx#:[id number] Output: Chest Tube Drainage 135 Left Pleural/Mediastinal 50 Left pleural 85 Urine 2975 650 Uretheral (Hearn) 275 Other: Voiding Method Incontinent Indwelling Catheter # Voids 1 ABP, PAP, CO, CI - Last Documented Arterial Blood Pressure 126/55 Pulmonary Artery Pressure 32/15 Cardiac Output 4.4 Cardiac Index 2.2 - Constitutional Constitutional Comment(s): Uncooperative General appearance: Present: no acute distress - Respiratory Details: Lungs sounds diminished bilaterally. Respirations even, nonlabored. Was on 3LPM NC with oxygen saturation 100%, currently on room air with oxygen saturation 95%. Not using his incentive spirometry. Strong coarse cough. - Cardiovascular Details: S1, S2 present. Slow but regular rate and rhythm, sinus bradycardia on telemetry with heart rate in the high 50s. Sternum stable. Ventricular epicardial pacemaker wire present, connected to generator, VVI mode with backup rate 50 bpm. Palpable peripheral pulses bilaterally. Trace bilateral lower extremity edema present. Heart hugger in place with patient not using appropriately. Antiembolism stockings, SCDs present. - Gastrointestinal Gastrointestinal Comment(s): Abdomen soft, nontender, nondistended. Hypoactive bowel sounds present [address] for medication administration. - Genitourinary Genitourinary Comment(s): Hearn present draining concentrated urine. Output 15-25 mL per hour overnight, excellent diuresis yesterday after lasix given - Integumentary Integumentary Comment(s): Skin is warm and dry with evidence perfusion. Anterior chest incision well approximated and covered with dry intact dressing. Left lower extremity EVH site well approximated without redness or drainage. - Musculoskeletal Musculoskeletal: Present: strength equal bilaterally - Psychiatric Psychiatric Comment(s): Disoriented, combative at times, restrained, currently on Precedex and Seroquel - Allied health notes Allied health notes reviewed: nursing - Labs CBC & Chem 7: 05/25/20 05:25 05/25/20 05:25 Labs: Abnormal Lab Results - Last 24 Hours (Table) 05/24/20 05/24/20 05/24/20 Range/Units 08:45 11:50 16:36 RBC (4.30-5.90) m/uL Hgb (13.0-17.5) gm/dL Hct (39.0-53.0) % Plt Count (150-450) k/uL Sodium 136 L (137-145) mmol/L Carbon Dioxide 31 H (22-30) mmol/L Glucose 142 H (74-99) mg/dL POC Glucose (mg/dL) 138 H 167 H (75-99) mg/dL Total Bilirubin 1.9 H (0.2-1.3) mg/dL Total Protein 5.7 L (6.3-8.2) g/dL Albumin 3.4 L (3.5-5.0) g/dL TSH 5.220 H (0.465-4.680) mIU/L 05/24/20 05/25/20 05/25/20 Range/Units 20:23 00:55 05:11 RBC (4.30-5.90) m/uL Hgb (13.0-17.5) gm/dL Hct (39.0-53.0) % Plt Count (150-450) k/uL Sodium (137-145) mmol/L Carbon Dioxide (22-30) mmol/L Glucose (74-99) mg/dL POC Glucose (mg/dL) 143 H 185 H 164 H (75-99) mg/dL Total Bilirubin (0.2-1.3) mg/dL Total Protein (6.3-8.2) g/dL Albumin (3.5-5.0) g/dL TSH (0.465-4.680) mIU/L 05/25/20 05/25/20 Range/Units 05:25 05:25 RBC 3.47 L (4.30-5.90) m/uL Hgb 10.5 L (13.0-17.5) gm/dL Hct 31.6 L (39.0-53.0) % Plt Count 137 L (150-450) k/uL Sodium 136 L (137-145) mmol/L Carbon Dioxide 32 H (22-30) mmol/L Glucose 174 H (74-99) mg/dL POC Glucose (mg/dL) (75-99) mg/dL Total Bilirubin 2.0 H (0.2-1.3) mg/dL Total Protein 5.3 L (6.3-8.2) g/dL Albumin 3.0 L (3.5-5.0) g/dL TSH (0.465-4.680) mIU/L - Imaging and Cardiology Chest x-ray: report reviewed, image reviewed Assessment and Plan Assessment: 1. Unstable angina, severe calcific 3 vessel coronary artery disease, status po st three-vessel CABG 2. Recent stroke in November 2019 with continued short-term memory loss and impuls ivity 3. Cardiomyopathy with EF 45-50% 4. Hypertension 5. Hyperlipidemia 6. Insulin-dependent diabetes with preoperative hemoglobin A1c 8% 7. Asthma 8. Previous tobacco dependence with preoperative FEV1 75% of predicted 9. Family history of premature coronary artery disease with father diagnosed less than 60 years old. 10. Postoperative acute blood loss anemia and thrombocytopenia, expected Plan: 1. Continue aspirin, statin, Plavix, beta sarah therapy. Will increase beta sarah therapy as tolerated. Wean Cleviprex as tolerated. 2. Try to encourage incentive spirometry use. Bronchodilators per pulmonology 3. Increase activity, out of bed to chair. PT/OT/cardiac rehab consulted 4. Will monitor daily labs and x-rays. Electrolyte replacement per protocol 5. GI/DVT prophylaxis 6. Pain control with current medication regimen 7. Insulin management per Dr. Tafoya 8. Reorient patient as necessary. Continue 1:1 sitter, continue seroquel, pre cedex 9. Continue Hearn catheter for another 24 hours. 10. Strict accurate intake and output, daily weight 11. RD to institute tube feedings for nutrition 12. Social work/case management on consult for discharge planning, patient likely will need rehab at discharge 13. More recommendations to follow based on patient's progress Time with Patient: Greater than 30
[2020-05-25] MEDS: IPRATROPIUM-ALBUTEROL 3 ML NEB INHALATION SCH ×4 (08:13→19:18)
[2020-05-25] MEDS: CLOPIDOGREL 75 MG TAB PO SCH (08:34)
[2020-05-25] MEDS: lisinopriL 10 MG TAB PO SCH (08:34)
[2020-05-25] MEDS: ASPIRIN 325 MG TAB NG-TUBE SCH (08:34)
[2020-05-25] MEDS: ATORVASTATIN 40 MG TAB PO SCH (08:34)
[2020-05-25] MEDS: QUEtiapine 50 MG TAB PO SCH ×2 (08:34→23:03)
[2020-05-25] MEDS: PANTOPRAZOLE 40 MG/10 ML VIAL IVP SCH (08:34)
[2020-05-25] MEDS: METOPROLOL TARTRATE 25 MG TAB NG-TUBE SCH ×2 (08:34→23:02)
[2020-05-25] MEDS: polyethylene glycoL 3350 17 GM POWD.PACK PO SCH (08:35)
[2020-05-25] MEDS: bisacodyL 10 MG SUPP RECTAL SCH (08:35)
[2020-05-25 09:13] LABS: Appearance,Urine Clear (Clear); Bacteria,Urine Rare /hpf; Bilirubin,Urine Negative (Negative); Blood,Urine Large (Negative); Color,Urine Yellow; Glucose,Urine (UA) Trace (Negative); Hyaline Casts,Urine 10 /lpf (0-2); Ketones,Urine 2+ (Negative); Leukocyte Esterase,Urine Small (Negative); Mucus,Urine Few /hpf; Nitrite,Urine Negative (Negative); Protein,Urine 1+ (Negative); RBC,Urine >182 /hpf (0-5); Specific Gravity,Urine 1.012 (1.001-1.035); Urobilinogen,Urine <2.0 mg/dL (<2.0); WBC,Urine 43 /hpf (0-5)
--- NOTE | 2020-05-25 09:52 | CT ---
EXAMINATION TYPE: CT brain wo con DATE OF EXAM: 05/25/2020 HISTORY: mental status changes, history of CVA. CT DLP: 1201.4 mGycm. Automated Exposure Control for Dose Reduction was Utilized. TECHNIQUE: CT scan of the head is performed without contrast. COMPARISON: CT brain 11/30/2019. FINDINGS: There is no acute intracranial hemorrhage or midline shift identified. There is diffuse v entricular and sulcal prominence consistent with diffuse age-related cerebral atrophy. There is low- attenuation in the periventricular white matter consistent with chronic small vessel ischemic change. Hyperdensity in the posterior inferior wall unchanged from prior study, etiology uncertain. Cannot exclude recurrent small scalp hematoma. Axial image 25 for reference. Given recent trauma. The calvar ium is intact. The globes are intact and the visualized sinuses are clear. IMPRESSION: No acute intracranial hemorrhage or midline shift. There is mild to moderate diffuse ce rebral atrophy and chronic small vessel ischemic change redemonstrated. No significant interval sparks [employer].
--- NOTE | 2020-05-25 10:10 | P.PN ---
Subjective Progress Note Date: 05/25/20 Principal diagnosis: Coronary artery disease status post three-vessel coronary artery bypass grafting. Postoperative day #2 The patient is seen today 05/24/2020 in follow-up in the intensive care unit. This is postoperative day #2 of a 3 vessel coronary artery bypass surgery. He received a DOOLEY to the LAD, reverse saphenous vein grafts to the obtuse marginal artery and posterior descending artery. He has since been extubated. He is currently on 2 L/m per nasal cannula to maintain O2 saturations in the 90s. He has lactated Ringer's running at 70 mL's per hour. Currently on Cleviprexl drip at 5 mg per hour. Chest x-ray reveals pulmonary vascular congestion. Patchy retrocardiac opacity also persists. Most likely atelectasis versus patchy pulmonary edema. White count 12.6. Hemoglobin 11.3. Platelet count 127. Sodium 136. Potassium 4.3. Creatinine 0.76. Mediastinal chest tube and pacer wires removed today. The patient is seen today 05/25/2020 in follow-up in the intensive care unit. This is postoperative day #3. He is maintaining O2 saturations in the 90s on 2 L/m per nasal cannula. Dobbhoff tube has been placed for nutrition. He remains on Precedex at 0.1 mg/kg/m. Lactated Ringer's at 70 miles per hour. Chest x- ray reveals low lung volumes, cardiomegaly, central vascular congestion left greater than right bibasilar infiltrate/atelectasis. Some worsening of the congestion compared to yesterday. White count 9.5. Hemoglobin 10.5. Platelet count 37,000. Sodium 136. Potassium 4.2. Creatinine 1.01. Patient has not been appropriate from the neurologic standpoint. Computed tomography scan of the brain today revealed no acute intracranial hemorrhage or midline shift. There is mild to moderate diffuse cerebral atrophy and chronic small vessel changes. No significant change compared to previous of November 2019. Sitter remains at the bedside. Objective - Vital Signs Vital signs: Vital Signs Temp 97.4 F L 05/25/20 08:00 Pulse 57 L 05/25/20 09:00 Resp 19 05/25/20 09:00 BP 116/57 05/25/20 09:00 Pulse Ox 96 05/25/20 09:00 Intake & Output 05/24/20 05/25/20 05/25/20 18:59 06:59 18:59 Intake Total 911 913.516 210 Output Total 3110 650 75 Balance -2199 263.516 135 Weight 86.5 kg 86.4 kg Intake: IV 721 840 210 LR 700 840 210 Pressure bags 21 Intake, IV Titration 190 73.516 Amount Clevidipine Butyrate 25 50 32.100 mg In Empty Bag 1 bag @ 1 MG/HR 2 mls/hr IV .Q24H [facility] Rx#:[id number] Dexmedetomidine/0.9% NaCl 41.416 (Pmx) 400 mcg In Empty Bag 1 bag @ Titrate IV . Q0M [facility] Rx#:[id number] Lactated Ringers 1,000 ml 140 @ 70 mls/hr IV .[id number] [facility] Rx#:[id number] Output: Chest Tube Drainage 135 Left Pleural/Mediastinal 50 Left pleural 85 Urine 2975 650 75 Uretheral (Hearn) 275 Other: Voiding Method Incontinent Indwelling Catheter # Voids 1 ABP, PAP, CO, CI - Last Documented Arterial Blood Pressure 126/55 Pulmonary Artery Pressure 32/15 Cardiac Output 4.4 Cardiac Index 2.2 - Exam GENERAL EXAM: Alert, not following simple commands, obese 74-year-old gentleman, on 2 L nasal cannula, comfortable in no apparent distress. HEAD: Normocephalic. EYES: Normal reaction of pupils, equal size. NOSE: Tube in place. Clear with pink turbinates. THROAT: No erythema or exudates. NECK: No masses, no JVD. CHEST: Sternal dressing dry and intact. No chest wall deformity. LUNGS: Equal air entry with crackles in the bilateral posterior bases.. CVS: S1 and S2 normal with no audible murmur, regular rhythm. ABDOMEN: No hepatosplenomegaly, normal bowel sounds, no guarding or rigidity. SPINE: No scoliosis or deformity SKIN: No rashes CENTRAL NERVOUS SYSTEM: Tone is normal in all 4 extremities. EXTREMITIES: There is no peripheral edema. No clubbing, no cyanosis. Peripheral pulses are intact. - Labs CBC & Chem 7: 05/25/20 05:25 05/25/20 05:25 Labs: Abnormal Lab Results - Last 24 Hours (Table) 05/24/20 05/24/20 05/24/20 Range/Units 11:50 16:36 20:23 RBC (4.30-5.90) m/uL Hgb (13.0-17.5) gm/dL Hct (39.0-53.0) % Plt Count (150-450) k/uL Sodium 136 L (137-145) mmol/L Carbon Dioxide 31 H (22-30) mmol/L Glucose 142 H (74-99) mg/dL POC Glucose (mg/dL) 167 H 143 H (75-99) mg/dL Total Bilirubin 1.9 H (0.2-1.3) mg/dL Total Protein 5.7 L (6.3-8.2) g/dL Albumin 3.4 L (3.5-5.0) g/dL TSH 5.220 H (0.465-4.680) mIU/L Urine Protein (Negative) Urine Glucose (UA) (Negative) Urine Ketones (Negative) Urine Blood (Negative) Ur Leukocyte Esterase (Negative) Urine RBC (0-5) /hpf Urine WBC (0-5) /hpf Urine Bacteria (None) /hpf Hyaline Casts (0-2) /lpf Urine Mucus (None) /hpf 05/25/20 05/25/20 05/25/20 Range/Units 00:55 05:11 05:25 RBC 3.47 L (4.30-5.90) m/uL Hgb 10.5 L (13.0-17.5) gm/dL Hct 31.6 L (39.0-53.0) % Plt Count 137 L (150-450) k/uL Sodium (137-145) mmol/L Carbon Dioxide (22-30) mmol/L Glucose (74-99) mg/dL POC Glucose (mg/dL) 185 H 164 H (75-99) mg/dL Total Bilirubin (0.2-1.3) mg/dL Total Protein (6.3-8.2) g/dL Albumin (3.5-5.0) g/dL TSH (0.465-4.680) mIU/L Urine Protein (Negative) Urine Glucose (UA) (Negative) Urine Ketones (Negative) Urine Blood (Negative) Ur Leukocyte Esterase (Negative) Urine RBC (0-5) /hpf Urine WBC (0-5) /hpf Urine Bacteria (None) /hpf Hyaline Casts (0-2) /lpf Urine Mucus (None) /hpf 05/25/20 05/25/20 Range/Units 05:25 08:25 RBC (4.30-5.90) m/uL Hgb (13.0-17.5) gm/dL Hct (39.0-53.0) % Plt Count (150-450) k/uL Sodium 136 L (137-145) mmol/L Carbon Dioxide 32 H (22-30) mmol/L Glucose 174 H (74-99) mg/dL POC Glucose (mg/dL) (75-99) mg/dL Total Bilirubin 2.0 H (0.2-1.3) mg/dL Total Protein 5.3 L (6.3-8.2) g/dL Albumin 3.0 L (3.5-5.0) g/dL TSH (0.465-4.680) mIU/L Urine Protein 1+ H (Negative) Urine Glucose (UA) Trace H (Negative) Urine Ketones 2+ H (Negative) Urine Blood Large H (Negative) Ur Leukocyte Esterase Small H (Negative) Urine RBC >182 H (0-5) /hpf Urine WBC 43 H (0-5) /hpf Urine Bacteria Rare H (None) /hpf Hyaline Casts 10 H (0-2) /lpf Urine Mucus Few H (None) /hpf Assessment and Plan Assessment: 1 Coronary artery disease status post three-vessel coronary artery bypass grafting 2 Ischemic cardiomyopathy with ejection fraction 45-50% 3 Hypertension 4 Hyperlipidemia 5 Diabetes mellitus 6 Chronic bronchial asthma 7 History of chronic tobacco dependence 8 Recent CVA in November 2019 with ongoing altered mental status Plan: The patient was seen and evaluated by Dr. Perdomo Chest x-ray and labs reviewed Difficult to educate the patient regarding postoperative care Continue to encourage increased use of incentive spirometer Titrate down the FiO2 as tolerated iso coordinator remains at the bedside We will continue to follow and make further recommendations based on his clinical status I, the cosigning physician, performed a history & physical examination of the patient. Lungs sounds crackles in the bilateral posterior bases. Maintaining good O2 saturations in the 90s on 2 L/m per nasal cannula. I discussed the ass essment and plan of care with my nurse practitioner, Katie Hinojosa. I attest to the above note as dictated by her.
[2020-05-25 10:48] LABS: Glucose,Whole Blood 132 mg/dL (75-99)
--- NOTE | 2020-05-25 11:20 | P.PN ---
Subjective Progress Note Date: 05/25/20 This is a pleasant 74-year-old gentleman with documented history of CVA in November of this year, ischemic cardio myopathy with documented ejection fraction 45-50%, hypertension, hyperlipidemia, diabetes, asthma, prior nicotine dependence, family history of premature coronary artery disease. He is status post coronary bypass grafting surgery 3 with a DOOLEY to the LAD, reverse saphenous vein graft to the first obtuse marginal and posterior descending artery with endoscopic vein harvesting of the left lower extremity greater saphenous vein, clip ligation of the left atrial appendage. Patient was seen and examined in the intensive care unit this morning, up in the chair at bedside. Continues to have a right internal jugular Dana Leticia in place, continues to have a mediastinal, and left chest tube in place as well as a Hearn catheter. Patient is mildly agitated and confused, continues to require one-on-one supervision. Blood pressure 117/70 with a heart rate in the 60s, 97% on room air. No lab data today. 05-24-2020 Patient was seen and examined this morning, continues to have episodes of confusion and aggressiveness. Pacemaker wires were removed this morning. Blood pressure 132/60 with a heart rate in the 70s, afebrile. 91% on 2 L of oxygen. White blood cell count 12.6, hemoglobin 11.3, platelet count 127. Sodium 136, potassium 4.3, BUN 14, creatinine 0.7. 05/25/2020 Patient was seen and examined this morning, sedated at the time of my examination however still continues to have periods of agitation. Continues to be in a normal sinus rhythm, sinus bradycardia. Continues to require one-on-one supervision. He does have a Dobbhoff placed, he is refusing to eat drink or take any pills. Blood pressure 112/60 with a heart rate in the 50s. White blood cell count 9.5, hemoglobin 10.5, platelet count 137. Sodium 136, potassium 4.2, BUN 12, creatinine 1.0. Objective - Vital Signs Vital signs: Vital Signs Temp 97.4 F L 05/25/20 08:00 Pulse 55 L 05/25/20 11:00 Resp 17 05/25/20 11:00 BP 113/60 05/25/20 11:00 Pulse Ox 100 05/25/20 11:00 Intake & Output 1205/25/20 05/25/20 18:59 06:59 18:59 Intake Total 911 913.516 350 Output Total 3110 650 125 Balance -2199 263.516 225 Weight 86.5 kg 86.4 kg 86.4 kg Intake: IV 721 840 350 LR 700 840 350 Pressure bags 21 Intake, IV Titration 190 73.516 Amount Clevidipine Butyrate 25 50 32.100 mg In Empty Bag 1 bag @ 1 MG/HR 2 mls/hr IV .Q24H [facility] Rx#:[id number] Dexmedetomidine/0.9% NaCl 41.416 (Pmx) 400 mcg In Empty Bag 1 bag @ Titrate IV . Q0M [facility] Rx#:[id number] Lactated Ringers 1,000 ml 140 @ 70 mls/hr IV .[id number] [facility] Rx#:[id number] Output: Chest Tube Drainage 135 Left Pleural/Mediastinal 50 Left pleural 85 Urine 2975 650 125 Uretheral (Hearn) 275 Other: Voiding Method Incontinent Indwelling Catheter # Voids 1 ABP, PAP, CO, CI - Last Documented Arterial Blood Pressure 126/55 Pulmonary Artery Pressure 32/15 Cardiac Output 4.4 Cardiac Index 2.2 - Exam PHYSICAL EXAMINATION: GENERAL: 74-year-old gentleman in no acute distress at the time of my examination HEENT: Head is atraumatic, normocephalic. Pupils equal, round. Sclera anicteric. Conjunctiva are clear. Mucous membranes of the mouth are moist. Neck is supple. There is no elevated jugular venous pressure. No carotid bruit is heard. HEART EXAMINATION: Heart S1-S2, sternum stable, A/V epicardial pacemaker wires removed . Heart hugger in place. CHEST EXAMINATION: Lungs reveal diminished air entry bilaterally to the bases. Patient is reaching about 500 on his incentive spirometry with much encouragement. Mediastinotomy/left pleural chest tubes present, to continuous wall suction. ABDOMEN: Soft, nontender. Bowel sounds are heard. No organomegaly noted. EXTREMITIES: 2+ peripheral pulses with trace evidence of peripheral edema, SCDs and antiembolism stockings in place. NEUROLOGIC patient is awake, alert and oriented 1 . . - Labs CBC & Chem 7: 05/25/20 05:25 05/25/20 05:25 Labs: Abnormal Lab Results - Last 24 Hours (Table) 05/24/20 05/24/20 05/24/20 Range/Units 11:50 16:36 20:23 RBC (4.30-5.90) m/uL Hgb (13.0-17.5) gm/dL Hct (39.0-53.0) % Plt Count (150-450) k/uL Sodium 136 L (137-145) mmol/L Carbon Dioxide 31 H (22-30) mmol/L Glucose 142 H (74-99) mg/dL POC Glucose (mg/dL) 167 H 143 H (75-99) mg/dL Total Bilirubin 1.9 H (0.2-1.3) mg/dL Total Protein 5.7 L (6.3-8.2) g/dL Albumin 3.4 L (3.5-5.0) g/dL TSH 5.220 H (0.465-4.680) mIU/L Urine Protein (Negative) Urine Glucose (UA) (Negative) Urine Ketones (Negative) Urine Blood (Negative) Ur Leukocyte Esterase (Negative) Urine RBC (0-5) /hpf Urine WBC (0-5) /hpf Urine Bacteria (None) /hpf Hyaline Casts (0-2) /lpf Urine Mucus (None) /hpf 05/25/20 05/25/20 05/25/20 Range/Units 00:55 05:11 05:25 RBC 3.47 L (4.30-5.90) m/uL Hgb 10.5 L (13.0-17.5) gm/dL Hct 31.6 L (39.0-53.0) % Plt Count 137 L (150-450) k/uL Sodium (137-145) mmol/L Carbon Dioxide (22-30) mmol/L Glucose (74-99) mg/dL POC Glucose (mg/dL) 185 H 164 H (75-99) mg/dL Total Bilirubin (0.2-1.3) mg/dL Total Protein (6.3-8.2) g/dL Albumin (3.5-5.0) g/dL TSH (0.465-4.680) mIU/L Urine Protein (Negative) Urine Glucose (UA) (Negative) Urine Ketones (Negative) Urine Blood (Negative) Ur Leukocyte Esterase (Negative) Urine RBC (0-5) /hpf Urine WBC (0-5) /hpf Urine Bacteria (None) /hpf Hyaline Casts (0-2) /lpf Urine Mucus (None) /hpf 05/25/20 05/25/20 05/25/20 Range/Units 05:25 08:25 10:46 RBC (4.30-5.90) m/uL Hgb (13.0-17.5) gm/dL Hct (39.0-53.0) % Plt Count (150-450) k/uL Sodium 136 L (137-145) mmol/L Carbon Dioxide 32 H (22-30) mmol/L Glucose 174 H (74-99) mg/dL POC Glucose (mg/dL) 132 H (75-99) mg/dL Total Bilirubin 2.0 H (0.2-1.3) mg/dL Total Protein 5.3 L (6.3-8.2) g/dL Albumin 3.0 L (3.5-5.0) g/dL TSH (0.465-4.680) mIU/L Urine Protein 1+ H (Negative) Urine Glucose (UA) Trace H (Negative) Urine Ketones 2+ H (Negative) Urine Blood Large H (Negative) Ur Leukocyte Esterase Small H (Negative) Urine RBC >182 H (0-5) /hpf Urine WBC 43 H (0-5) /hpf Urine Bacteria Rare H (None) /hpf Hyaline Casts 10 H (0-2) /lpf Urine Mucus Few H (None) /hpf Assessment and Plan Plan: Assessment and plan: 1. Unstable angina, severe 3 vessel coronary artery disease, status post three- vessel CABG 2. Recent stroke in November 2019 with continued short-term memory loss and impulsivity 3. Ischemic Cardiomyopathy with EF 45-50% 4. Hypertension 5. Hyperlipidemia 6. Insulin-dependent diabetes with preoperative hemoglobin A1c 8% 7. Asthma 8. Previous tobacco dependence with preoperative FEV1 75% of predicted 9. Family history of premature coronary artery disease with father diagnosed less than 60 years old. 10. Postoperative acute blood loss anemia and thrombocytopenia, expected Plan From cardiology's perspective, the patient's current medications have been reviewed which we will continue. Continue to monitor daily labs and x-rays. DNP note has been reviewed, I agree with a documented findings and plan of care. Patient was seen and examined.
[2020-05-25 13:17] LABS: Glucose,Whole Blood 101 mg/dL (75-99)
[2020-05-25] MEDS ORDERED: FUROSEMIDE 10 MG/ML 4 ML VIAL IV STA (15:12)
[2020-05-25 17:19] LABS: Glucose,Whole Blood 106 mg/dL (75-99)
[2020-05-25] MEDS ORDERED: HALOPERIDOL LACTATE 5 MG/ML 1 ML VIAL ONE (20:33)
[2020-05-25 20:54] LABS: ABG HCO3 27 mmol/L (21-25); ABG Oxygen Saturation 85.1 % (94-97); ABG PCO2 48 mmHg (35-45); ABG PH 7.36 (7.35-7.45); ABG TCO2 29 mmol/L (19-24); Allen Test Performed? Yes
[2020-05-25 20:55] LABS: ABG PO2 51 mmHg (83-108)
--- NOTE | 2020-05-25 21:17 | XR ---
EXAMINATION TYPE: XR chest 1V portable DATE OF EXAM: 05/25/2020 COMPARISON: Today HISTORY: Short of breath TECHNIQUE: FINDINGS: There is some pulmonary interstitial edema. There are sternal wires. There is blunting of t he costophrenic angles. There is nasogastric tube in the stomach. Heart appears enlarged. IMPRESSION: Pleural effusions and pulmonary interstitial edema and subsegmental atelectasis unchanged compared to exam this morning. No definite pleural fluid seen to suggest heart failure. This could r elate to some interstitial pneumonia.
[2020-05-25] MEDS ORDERED: SUCCINYLCHOLINE CHLORIDE VIAL 200 MG/10 ML VIAL IV ONE (21:30)
[2020-05-25] MEDS ORDERED: DEXMEDETOMIDINE/0.9% NACL(PMX) 400 MCG in EMPTY BAG 1 BAG IV SCH (21:30)
[2020-05-25] MEDS ORDERED: PROPOFOL 10 MG/ML 20 ML VIAL IV ONE (21:30)
[2020-05-25] MEDS ORDERED: NOREPINEPHRIN 4 MG-0.9% NS PMX 4 MG/250 ML ML IV ONE (21:41)
[2020-05-25] MEDS ORDERED: propofoL 100 ML IV ONE (21:50)
[2020-05-25] MEDS: NOREPINEPHRINE 4 MG in SODIUM CHLORIDE 0.9% 250 ML IV SCH (22:20)
--- NOTE | 2020-05-25 22:44 | XR ---
EXAMINATION TYPE: XR chest 1V DATE OF EXAM: 05/25/2020 COMPARISON: Today HISTORY: Respiratory failure TECHNIQUE: Single view FINDINGS: There is endotracheal tube 2.5 cm from the roro. There is some atelectasis at the lung ba ses. There is coarse interstitial pulmonary density. There are sternal wires. Heart is probably enlar ged. There is interposition of the hepatic flexure of the colon. There is nasogastric tube in the sto mach. IMPRESSION: Poor inspiration with interstitial infiltrates and atelectasis. Pulmonary aeration slight ly improved compared to exam one hour ago.
[2020-05-25 22:52] LABS: ABG Base Excess 0.5 mmol/L; ABG HCO3 24 mmol/L (21-25); ABG Oxygen Saturation 99.5 % (94-97); ABG PCO2 34 mmHg (35-45); ABG PH 7.46 (7.35-7.45); ABG PO2 >400 mmHg (83-108); ABG TCO2 25 mmol/L (19-24); Allen Test Performed? Yes
[2020-05-25] MEDS: SENNOSIDES-DOCUSATE SODIUM 1 EACH TAB PO SCH (23:02)
[2020-05-25 23:09] LABS: Glucose,Whole Blood 200 mg/dL (75-99)
[2020-05-25] MEDS: CHLORHEXIDINE GLUCONATE 15 ML CUP MUCOUS MEM SCH (23:10)
[2020-05-26 04:04] LABS: Basophils # (A) 0.1 k/uL (0-0.2); Basophils % (A) 0 %; Eosinophils # (A) 0.2 k/uL (0-0.7); Eosinophils % (A) 2 %; HCT 28.2 % (39.0-53.0); HGB 9.8 gm/dL (13.0-17.5); Lymphocytes # (A) 1.5 k/uL (1.0-4.8); Lymphocytes % (A) 14 %; MCH 30.8 pg (25.0-35.0); MCHC 34.7 g/dL (31.0-37.0); MCV 88.6 fL (80.0-100.0); Mean Platelet Volume 9.1; Monocytes # (A) 0.5 k/uL (0-1.0); Monocytes % (A) 5 %; Neutrophils # (A) 8.1 k/uL (1.3-7.7); Neutrophils % (A) 78 %; Platelet Count 199 k/uL (150-450); RBC 3.18 m/uL (4.30-5.90); RDW 13.4 % (11.5-15.5); WBC 10.5 k/uL (3.8-10.6)
[2020-05-26 04:10] LABS: Ionized Calcium 4.7 mg/dL (4.5-5.3)
[2020-05-26 04:17] LABS: ALT 13 U/L (4-49); AST 26 U/L (17-59); African American GFR (CKD) >90 (>60 ml/min/1.73 sqM); Albumin 2.7 g/dL (3.5-5.0); Alkaline Phosphatase 48 U/L (38-126); Anion Gap 8 mmol/L; Blood Urea Nitrogen 19 mg/dL (9-20); Calcium 8.2 mg/dL (8.4-10.2); Carbon Dioxide 24 mmol/L (22-30); Chloride 102 mmol/L (98-107); Glucose 165 mg/dL (74-99); Magnesium 1.9 mg/dL (1.6-2.3); Non-African American GFR(CKD) 86 (>60 ml/min/1.73 sqM); Potassium 3.7 mmol/L (3.5-5.1); Sodium 134 mmol/L (137-145); Total Bilirubin 1.7 mg/dL (0.2-1.3); Total Protein 4.9 g/dL (6.3-8.2)
[2020-05-26] MEDS: HEPARIN SODIUM,PORCINE 5,000 UNIT/ML 1 ML VIAL SQ SCH ×3 (04:51→20:22)
[2020-05-26] MEDS: LACTATED RINGERS 1,000 ML IV SCH ×2 (04:52→17:32)
[2020-05-26] MEDS: MAGNESIUM SULFATE-D5W PMX 1 GM in DEXTROSE/WATER 1 100ML.BAG IVPB SCH ×2 (04:52→07:01)
[2020-05-26] MEDS: INSULIN ASPART (NovoLOG) 100 UNIT/ML VIAL SQ SCH ×3 (04:52→12:17)
[2020-05-26] MEDS ORDERED: POTASSIUM BICARBONATE/CIT AC 20 MEQ TABLET.EFF NG-TUBE SCH (05:00)
[2020-05-26 05:08] LABS: Allen Test Performed? Yes
[2020-05-26 05:09] LABS: ABG Base Excess -0.2 mmol/L; ABG HCO3 23 mmol/L (21-25); ABG PCO2 31 mmHg (35-45); ABG PH 7.48 (7.35-7.45); ABG PO2 170 mmHg (83-108); ABG TCO2 24 mmol/L (19-24)
[2020-05-26] MEDS: INSULIN DETEMIR (LEVEMIR) 100 UNIT/ML SYR SQ SCH (07:00)
[2020-05-26] MEDS: IPRATROPIUM-ALBUTEROL 3 ML NEB INHALATION SCH ×5 (07:30→23:49)
--- NOTE | 2020-05-26 07:58 | XR ---
EXAMINATION TYPE: XR chest 1V portable DATE OF EXAM: 05/26/2020 COMPARISON: 05/25/2020 INDICATION: Post cardiac surgery TECHNIQUE: Single frontal view of the chest is obtained. FINDINGS: The heart size is enlarged. The pulmonary vasculature is normal. Diffuse increased lung markings are improving from comparison. Sternotomy wires are present in midlin e. Epicardial leads are present. Dobbhoff feeding tube is present with the tip in the left upper quad rant of the abdomen. Endotracheal tube tip is above the roro. IMPRESSION: 1. Improving lung markings. Infiltrate remains at the left base. 2. Cardiomegaly. 3. Lines and catheters discussed above
--- NOTE | 2020-05-26 08:41 | P.PN ---
Subjective Progress Note Date: 05/25/20 Marcos Perez is a 74 yo M with PMH of CAD, hx CVA with residual dementia, T2DM, HTN, HLD who is admitted s/p CABG. He is doing well today, hemodynamically stable and extubated, upright in chair. His sugars are controlled on insulin drip. Pt remains confused and agitated this morning, unable to remember the reason he is hospitalized and trying to remove lines and refusing oral medications. He has no specific concerns for me today. 05/24/2020 Seroquel initiated yesterday. rehabilitation team lead remains at bedside Patient's agitation/combativeness /impulsiveness improving-fluctuates. No further Haldol/Ativan since yesterday. Mediastinal chest tube removed. Currently on Cleveprex drip. Blood sugars controlled. Chest x-ray reporting continued mild pulmonary vascular congestion with slight improvement in bilateral base aeration. Prominent air persists below the right hemidiaphragm. Maintaining O2 sats in the 90s on 2 L nasal cannula. Afebrile, WBC 12.6. 05/25/2020. He remains on seroquel and precedex drip, he has been intermittently agitated pulling at lines and confused. Pt's vitals and glucose are well controlled today. CT head repeated and no interval change. Pt unable to take PO nutrition and enteral feedings started. Objective - Vital Signs Vital signs: Vital Signs Temp 98.6 F 05/26/20 08:00 Pulse 50 L 05/26/20 08:00 Resp 20 05/26/20 08:00 BP 137/63 05/26/20 08:00 Pulse Ox 100 05/26/20 08:00 Intake & Output 05/25/20 05/26/20 05/26/20 18:59 06:59 18:59 Intake Total 1025.66 1474.765 315.904 Output Total 540 740 65 Balance 485.66 734.765 250.904 Weight 86.3 kg Intake: IV 490 770 90 LR 490 770 90 Intake, IV Titration 365.66 274.765 135.904 Amount Clevidipine Butyrate 25 0 9.333 mg In Empty Bag 1 bag @ 1 MG/HR 2 mls/hr IV .Q24H [facility] Rx#:[id number] Dexmedetomidine/0.9% NaCl 15.66 38.369 (Pmx) 400 mcg In Empty Bag 1 bag @ Titrate IV . Q0M [facility] Rx#:[id number] Lactated Ringers 1,000 ml 350 70 @ 20 mls/hr IV .Q24H [facility] Rx#:[id number] Norepinephrine 4 mg In 25.153 135.904 Sodium Chloride 0.9% 250 ml @ 0.05 MCG/KG/MIN 16. 44 mls/hr IV .[id number] [facility] Rx#:[id number] propofoL 1,000 mg In 131.910 Empty Bag 1 bag @ Titrate IV .Q0M [facility] Rx#: [id number] Tube Feeding 140 340 70 Other 30 90 20 Output: Urine 540 740 65 Other: Voiding Method Indwelling Catheter Indwelling Catheter ABP, PAP, CO, CI - Last Documented Arterial Blood Pressure 137/49 Pulmonary Artery Pressure 32/15 Cardiac Output 4.4 Cardiac Index 2.2 - Exam Gen: well developed well nourished male. Lethargic, rouses to voice HEENT: normocephalic, atrauamtic CV: RRR, no murmur Lungs: normal effort, minimal rhonchi - Labs CBC & Chem 7: 05/26/20 03:50 05/26/20 03:50 Labs: Abnormal Lab Results - Last 24 Hours (Table) 05/25/20 05/25/20 05/25/20 Range/Units 08:25 10:46 13:15 RBC (4.30-5.90) m/uL Hgb (13.0-17.5) gm/dL Hct (39.0-53.0) % Neutrophils # (1.3-7.7) k/uL ABG pH (7.35-7.45) ABG pCO2 (35-45) mmHg ABG pO2 (83-108) mmHg ABG HCO3 (21-25) mmol/L ABG Total CO2 (19-24) mmol/L ABG O2 Saturation (94-97) % Sodium (137-145) mmol/L Glucose (74-99) mg/dL POC Glucose (mg/dL) 132 H 101 H (75-99) mg/dL Calcium (8.4-10.2) mg/dL Total Bilirubin (0.2-1.3) mg/dL Total Protein (6.3-8.2) g/dL Albumin (3.5-5.0) g/dL Urine Protein 1+ H (Negative) Urine Glucose (UA) Trace H (Negative) Urine Ketones 2+ H (Negative) Urine Blood Large H (Negative) Ur Leukocyte Esterase Small H (Negative) Urine RBC >182 H (0-5) /hpf Urine WBC 43 H (0-5) /hpf Urine Bacteria Rare H (None) /hpf Hyaline Casts 10 H (0-2) /lpf Urine Mucus Few H (None) /hpf 05/25/20 05/25/20 05/25/20 Range/Units 17:18 20:52 22:49 RBC (4.30-5.90) m/uL Hgb (13.0-17.5) gm/dL Hct (39.0-53.0) % Neutrophils # (1.3-7.7) k/uL ABG pH 7.46 H (7.35-7.45) ABG pCO2 48 H 34 L (35-45) mmHg ABG pO2 51 L* >400 H (83-108) mmHg ABG HCO3 27 H (21-25) mmol/L ABG Total CO2 29 H 25 H (19-24) mmol/L ABG O2 Saturation 85.1 L 99.5 H (94-97) % Sodium (137-145) mmol/L Glucose (74-99) mg/dL POC Glucose (mg/dL) 106 H (75-99) mg/dL Calcium (8.4-10.2) mg/dL Total Bilirubin (0.2-1.3) mg/dL Total Protein (6.3-8.2) g/dL Albumin (3.5-5.0) g/dL Urine Protein (Negative) Urine Glucose (UA) (Negative) Urine Ketones (Negative) Urine Blood (Negative) Ur Leukocyte Esterase (Negative) Urine RBC (0-5) /hpf Urine WBC (0-5) /hpf Urine Bacteria (None) /hpf Hyaline Casts (0-2) /lpf Urine Mucus (None) /hpf 05/25/20 05/26/20 05/26/20 Range/Units 23:07 03:50 03:50 RBC 3.18 L (4.30-5.90) m/uL Hgb 9.8 L (13.0-17.5) gm/dL Hct 28.2 L (39.0-53.0) % Neutrophils # 8.1 H (1.3-7.7) k/uL ABG pH (7.35-7.45) ABG pCO2 (35-45) mmHg ABG pO2 (83-108) mmHg ABG HCO3 (21-25) mmol/L ABG Total CO2 (19-24) mmol/L ABG O2 Saturation (94-97) % Sodium 134 L (137-145) mmol/L Glucose 165 H (74-99) mg/dL POC Glucose (mg/dL) 200 H (75-99) mg/dL Calcium 8.2 L (8.4-10.2) mg/dL Total Bilirubin 1.7 H (0.2-1.3) mg/dL Total Protein 4.9 L (6.3-8.2) g/dL Albumin 2.7 L (3.5-5.0) g/dL Urine Protein (Negative) Urine Glucose (UA) (Negative) Urine Ketones (Negative) Urine Blood (Negative) Ur Leukocyte Esterase (Negative) Urine RBC (0-5) /hpf Urine WBC (0-5) /hpf Urine Bacteria (None) /hpf Hyaline Casts (0-2) /lpf Urine Mucus (None) /hpf 05/26/20 Range/Units 05:04 RBC (4.30-5.90) m/uL Hgb (13.0-17.5) gm/dL Hct (39.0-53.0) % Neutrophils # (1.3-7.7) k/uL ABG pH 7.48 H (7.35-7.45) ABG pCO2 31 L (35-45) mmHg ABG pO2 170 H (83-108) mmHg ABG HCO3 (21-25) mmol/L ABG Total CO2 (19-24) mmol/L ABG O2 Saturation 99.0 H (94-97) % Sodium (137-145) mmol/L Glucose (74-99) mg/dL POC Glucose (mg/dL) (75-99) mg/dL Calcium (8.4-10.2) mg/dL Total Bilirubin (0.2-1.3) mg/dL Total Protein (6.3-8.2) g/dL Albumin (3.5-5.0) g/dL Urine Protein (Negative) Urine Glucose (UA) (Negative) Urine Ketones (Negative) Urine Blood (Negative) Ur Leukocyte Esterase (Negative) Urine RBC (0-5) /hpf Urine WBC (0-5) /hpf Urine Bacteria (None) /hpf Hyaline Casts (0-2) /lpf Urine Mucus (None) /hpf Microbiology - Last 24 Hours (Table) 05/25/20 22:00 Gram Stain - Preliminary Sputum Sputum Culture - Preliminary 05/25/20 08:25 Urine Culture - Preliminary Urine,Voided Assessment and Plan (1) History of CVA with residual deficit Current Visit: Yes Status: Acute Code(s): I69.30 - UNSPECIFIED SEQUELAE OF CEREBRAL INFARCTION SNOMED Code(s): 827934853 (2) Type 2 diabetes mellitus Current Visit: Yes Status: Acute Code(s): E11.9 - TYPE 2 DIABETES MELLITUS WITHOUT COMPLICATIONS SNOMED Code(s): 08787460 (3) Dementia Current Visit: Yes Status: Acute Code(s): F03.90 - UNSPECIFIED DEMENTIA WITHOUT BEHAVIORAL DISTURBANCE SNOMED Code(s): 49129347 (4) Status post coronary artery bypass graft Current Visit: Yes Status: Acute Code(s): Z95.1 - PRESENCE OF AORTOCORONARY BYPASS GRAFT SNOMED Code(s): 881846909 (5) Triple vessel coronary artery disease Current Visit: Yes Status: Acute Code(s): I25.10 - ATHSCL HEART DISEASE OF [place] CORONARY ARTERY W/O ANG PCTRS SNOMED Code(s): 051555473 (6) Cerebral infarction, remote, resolved Current Visit: No Status: Acute Code(s): Z86.73 - PRSNL HX OF TIA (TIA), AND CEREB INFRC W/O RESID DEFICITS SNOMED Code(s): 363470462 Plan: Continue to closely follow, continue with seroquel for agitation, precedex. Start enteral feedings. Critical care and CT surgery following closely. Continue to monitor respiratory status. Sliding scale insulin
[2020-05-26 09:00] LABS: Glucose,Whole Blood 203 mg/dL (75-99)
[2020-05-26] MEDS: ATORVASTATIN 40 MG TAB PO SCH (09:07)
[2020-05-26] MEDS: QUEtiapine 50 MG TAB PO SCH ×2 (09:07→21:27)
[2020-05-26] MEDS: METOPROLOL TARTRATE 25 MG TAB NG-TUBE SCH ×2 (09:07→21:30)
[2020-05-26] MEDS: polyethylene glycoL 3350 17 GM POWD.PACK PO SCH (09:08)
[2020-05-26] MEDS: CLOPIDOGREL 75 MG TAB PO SCH (09:08)
[2020-05-26] MEDS: bisacodyL 10 MG SUPP RECTAL SCH (09:08)
[2020-05-26] MEDS: ASPIRIN 325 MG TAB NG-TUBE SCH (09:08)
[2020-05-26] MEDS: PANTOPRAZOLE 40 MG/10 ML VIAL IVP SCH (09:09)
--- NOTE | 2020-05-26 09:16 | P.PN ---
Subjective Progress Note Date: 05/26/20 Principal diagnosis: Unstable angina, severe calcific 3 vessel coronary artery disease. Previous medical history of recent stroke in November 2019 with continued short-term memory loss and impulsivity, cardiomyopathy with EF 45-50%, hypertension, hyperlipidemia, insulin-dependent diabetes with preoperative hemoglobin A1c 8%, asthma, previous tobacco dependence with preoperative FEV1 75% of predicted, and family history of premature coronary artery disease with father diagnosed less than 60 years old. POD #4 coronary artery bypass grafting 3 with the left internal mammary artery to the left anterior descending artery, reverse saphenous vein graft off the aorta to the first obtuse marginal artery and the posterior descending artery with endoscopic vein harvesting of the left lower extremity greater saphenous vein, clip ligation of the left atrial appendage with a 35 mm AtriClip and intraoperative transesophageal echocardiogram. Postoperative acute blood loss anemia and thrombocytopenia, expected outcomes given hemodilution and cardiopulmonary bypass pump Acute hypoxic respiratory failure requiring re-intubation, unexpected, unknown cause The patient is currently laying in bed mechanically ventilated in the intensive care unit. Became hypoxic last night, was very agitated despite Precedex, was emergently re-intubated by [employer], moderate amount thick green creamy sputum suctioned and sent for culture. Remains afebrile, WBC 10.5. Precedex switched to propofol. Hypotensive requiring low dose levophed. Remains in sinus bradycardia. Dobhoff in place, tube feedings initiated yesterday. Sister updated by phone. Objective - Vital Signs Vital signs: Vital Signs Temp 98.8 F 05/26/20 04:00 Pulse 52 L 05/26/20 05:00 Resp 20 05/26/20 05:00 BP 128/56 05/26/20 05:00 Pulse Ox 100 05/26/20 05:00 Intake & Output 05/25/20 05/25/20 05/26/20 06:59 18:59 06:59 Intake Total 766.463 7470.66 1374.765 Output Total 650 540 705 Balance 263.516 485.66 669.765 Weight 86.4 kg 86.3 kg Intake: IV 840 490 700 LR 840 490 700 Intake, IV Titration 73.516 365.66 274.765 Amount Clevidipine Butyrate 25 32.100 0 9.333 mg In Empty Bag 1 bag @ 1 MG/HR 2 mls/hr IV .Q24H [facility] Rx#:[id number] Dexmedetomidine/0.9% NaCl 41.416 15.66 38.369 (Pmx) 400 mcg In Empty Bag 1 bag @ Titrate IV . Q0M [facility] Rx#:[id number] Lactated Ringers 1,000 ml 350 70 @ 70 mls/hr IV .[id number] [facility] Rx#:[id number] Norepinephrine 4 mg In 25.153 Sodium Chloride 0.9% 250 ml @ 0.05 MCG/KG/MIN 16. 44 mls/hr IV .[id number] [facility] Rx#:[id number] propofoL 1,000 mg In 131.910 Empty Bag 1 bag @ Titrate IV .Q0M [facility] Rx#: [id number] Tube Feeding 140 310 Other 30 90 Output: Urine 650 540 705 Uretheral (Hearn) 275 Other: Voiding Method Indwelling Catheter Indwelling Catheter Indwelling Catheter # Voids 1 ABP, PAP, CO, CI - Last Documented Arterial Blood Pressure 134/48 Pulmonary Artery Pressure 32/15 Cardiac Output 4.4 Cardiac Index 2.2 - Constitutional General appearance: Present: no acute distress - Respiratory Details: Lungs sounds diminished bilaterally. Respirations even, nonlabored on mechanical ventilation. Current vent settings FiO2 40%, TV 450, RR 20, PEEP 5. ABGs this AM on those settings 7.48/31/170/23/99%/-0.2. 8.0 ETT present, 22 @ the lip. - Cardiovascular Details: S1, S2 present. Slow but regular rate and rhythm, sinus bradycardia on telemetry with heart rate in the 40-50s. Sternum stable. Ventricular epicardia l pacemaker wire present, connected to generator, VVI mode with backup rate 50 bpm. Palpable peripheral pulses bilaterally. Trace left lower extremity edema present. Heart hugger in place, antiembolism stockings, SCDs present. - Gastrointestinal Gastrointestinal Comment(s): Abdomen soft, nontender, nondistended. Hypoactive bowel sounds present 4 quad rants. Dobhoff in place with tube feeding infusing at 30 mL/hr. - Genitourinary Genitourinary Comment(s): Hearn present draining clear yellow urine. Output 20-45 mL per hour overnight, 750 mL after IV lasix yesterday, 1245mL in the last 24 hours - Integumentary Integumentary Comment(s): Skin is warm and dry. Anterior chest incision well approximated and covered with dry intact dressing. Left lower extremity EVH site well approximated without redness or drainage. - Neurologic Neurologic Comment(s): sedated on mechanical ventilation - Musculoskeletal Musculoskeletal Comment(s): sedated currently, off sedation moves all extremities with equal strength - Psychiatric Psychiatric Comment(s): sedated currently, confused, combative and uncooperative off sedation - Allied health notes Allied health notes reviewed: nursing - Labs CBC & Chem 7: 05/26/20 03:50 05/26/20 03:50 Labs: Abnormal Lab Results - Last 24 Hours (Table) 05/25/20 05/25/20 05/25/20 Range/Units 08:25 10:46 13:15 RBC (4.30-5.90) m/uL Hgb (13.0-17.5) gm/dL Hct (39.0-53.0) % Neutrophils # (1.3-7.7) k/uL ABG pH (7.35-7.45) ABG pCO2 (35-45) mmHg ABG pO2 (83-108) mmHg ABG HCO3 (21-25) mmol/L ABG Total CO2 (19-24) mmol/L ABG O2 Saturation (94-97) % Sodium (137-145) mmol/L Glucose (74-99) mg/dL POC Glucose (mg/dL) 132 H 101 H (75-99) mg/dL Calcium (8.4-10.2) mg/dL Total Bilirubin (0.2-1.3) mg/dL Total Protein (6.3-8.2) g/dL Albumin (3.5-5.0) g/dL Urine Protein 1+ H (Negative) Urine Glucose (UA) Trace H (Negative) Urine Ketones 2+ H (Negative) Urine Blood Large H (Negative) Ur Leukocyte Esterase Small H (Negative) Urine RBC >182 H (0-5) /hpf Urine WBC 43 H (0-5) /hpf Urine Bacteria Rare H (None) /hpf Hyaline Casts 10 H (0-2) /lpf Urine Mucus Few H (None) /hpf 05/25/20 05/25/20 05/25/20 Range/Units 17:18 20:52 22:49 RBC (4.30-5.90) m/uL Hgb (13.0-17.5) gm/dL Hct (39.0-53.0) % Neutrophils # (1.3-7.7) k/uL ABG pH 7.46 H (7.35-7.45) ABG pCO2 48 H 34 L (35-45) mmHg ABG pO2 51 L* >400 H (83-108) mmHg ABG HCO3 27 H (21-25) mmol/L ABG Total CO2 29 H 25 H (19-24) mmol/L ABG O2 Saturation 85.1 L 99.5 H (94-97) % Sodium (137-145) mmol/L Glucose (74-99) mg/dL POC Glucose (mg/dL) 106 H (75-99) mg/dL Calcium (8.4-10.2) mg/dL Total Bilirubin (0.2-1.3) mg/dL Total Protein (6.3-8.2) g/dL Albumin (3.5-5.0) g/dL Urine Protein (Negative) Urine Glucose (UA) (Negative) Urine Ketones (Negative) Urine Blood (Negative) Ur Leukocyte Esterase (Negative) Urine RBC (0-5) /hpf Urine WBC (0-5) /hpf Urine Bacteria (None) /hpf Hyaline Casts (0-2) /lpf Urine Mucus (None) /hpf 05/25/20 05/26/20 05/26/20 Range/Units 23:07 03:50 03:50 RBC 3.18 L (4.30-5.90) m/uL Hgb 9.8 L (13.0-17.5) gm/dL Hct 28.2 L (39.0-53.0) % Neutrophils # 8.1 H (1.3-7.7) k/uL ABG pH (7.35-7.45) ABG pCO2 (35-45) mmHg ABG pO2 (83-108) mmHg ABG HCO3 (21-25) mmol/L ABG Total CO2 (19-24) mmol/L ABG O2 Saturation (94-97) % Sodium 134 L (137-145) mmol/L Glucose 165 H (74-99) mg/dL POC Glucose (mg/dL) 200 H (75-99) mg/dL Calcium 8.2 L (8.4-10.2) mg/dL Total Bilirubin 1.7 H (0.2-1.3) mg/dL Total Protein 4.9 L (6.3-8.2) g/dL Albumin 2.7 L (3.5-5.0) g/dL Urine Protein (Negative) Urine Glucose (UA) (Negative) Urine Ketones (Negative) Urine Blood (Negative) Ur Leukocyte Esterase (Negative) Urine RBC (0-5) /hpf Urine WBC (0-5) /hpf Urine Bacteria (None) /hpf Hyaline Casts (0-2) /lpf Urine Mucus (None) /hpf 05/26/20 Range/Units 05:04 RBC (4.30-5.90) m/uL Hgb (13.0-17.5) gm/dL Hct (39.0-53.0) % Neutrophils # (1.3-7.7) k/uL ABG pH 7.48 H (7.35-7.45) ABG pCO2 31 L (35-45) mmHg ABG pO2 170 H (83-108) mmHg ABG HCO3 (21-25) mmol/L ABG Total CO2 (19-24) mmol/L ABG O2 Saturation 99.0 H (94-97) % Sodium (137-145) mmol/L Glucose (74-99) mg/dL POC Glucose (mg/dL) (75-99) mg/dL Calcium (8.4-10.2) mg/dL Total Bilirubin (0.2-1.3) mg/dL Total Protein (6.3-8.2) g/dL Albumin (3.5-5.0) g/dL Urine Protein (Negative) Urine Glucose (UA) (Negative) Urine Ketones (Negative) Urine Blood (Negative) Ur Leukocyte Esterase (Negative) Urine RBC (0-5) /hpf Urine WBC (0-5) /hpf Urine Bacteria (None) /hpf Hyaline Casts (0-2) /lpf Urine Mucus (None) /hpf Microbiology - Last 24 Hours (Table) 05/25/20 22:00 Sputum Culture - Preliminary Sputum 05/25/20 08:25 Urine Culture - Preliminary Urine,Voided - Imaging and Cardiology Chest x-ray: image reviewed Assessment and Plan Assessment: 1. Unstable angina, severe calcific 3 vessel coronary artery disease, status post three-vessel CABG 2. Recent stroke in November 2019 with continued short-term memory loss and impulsivity 3. Cardiomyopathy with EF 45-50% 4. Hypertension 5. Hyperlipidemia 6. Insulin-dependent diabetes with preoperative hemoglobin A1c 8% 7. Asthma 8. Previous tobacco dependence with preoperative FEV1 75% of predicted 9. Family history of premature coronary artery disease with father diagnosed less than 60 years old. 10. Postoperative acute blood loss anemia and thrombocytopenia, expected 11. Acute hypoxic respiratory failure requiring reintubation, unexpected Plan: 1. Continue aspirin, statin, Plavix, beta sarah therapy. Wean levo as tolerated 2. Ventilator managment, bronchodilators per pulmonology 3. Will monitor daily labs and x-rays. Electrolyte replacement per protocol 4. GI/DVT prophylaxis 5. Pain control with current medication regimen 6. Insulin management per Dr. Tafoya 7. Continue Miralax, dulcolax suppository until bowel movement 8. Continue Hearn catheter for another 24 hours. 9. Strict accurate intake and output, daily weight 10. Continue tube feedings 11. Social work/case management on consult for discharge planning, patient likely will need rehab at discharge 12. More recommendations to follow based on patient's progress Time with Patient: Greater than 30
[2020-05-26] MEDS: CHLORHEXIDINE GLUCONATE 15 ML CUP MUCOUS MEM SCH ×2 (09:20→20:22)
--- NOTE | 2020-05-26 09:54 | P.PN ---
Subjective Progress Note Date: 05/26/20 This is a pleasant 74-year-old gentleman with documented history of CVA in November of this year, ischemic cardio myopathy with documented ejection fraction 45-50%, hypertension, hyperlipidemia, diabetes, asthma, prior nicotine dependence, family history of premature coronary artery disease. He is status post coronary bypass grafting surgery 3 with a DOOLEY to the LAD, reverse saphenous vein graft to the first obtuse marginal and posterior descending artery with endoscopic vein harvesting of the left lower extremity greater saphenous vein, clip ligation of the left atrial appendage. Patient was seen and examined in the intensive care unit this morning, up in the chair at bedside. Continues to have a right internal jugular Dana Leticia in place, continues to have a mediastinal, and left chest tube in place as well as a Hearn catheter. Patient is mildly agitated and confused, continues to require one-on-one supervision. Blood pressure 117/70 with a heart rate in the 60s, 97% on room air. No lab data today. 05-24-2020 Patient was seen and examined this morning, continues to have episodes of confusion and aggressiveness. Pacemaker wires were removed this morning. Blood pressure 132/60 with a heart rate in the 70s, afebrile. 91% on 2 L of oxygen. White blood cell count 12.6, hemoglobin 11.3, platelet count 127. Sodium 136, potassium 4.3, BUN 14, creatinine 0.7. 05/25/2020 Patient was seen and examined this morning, sedated at the time of my examination however still continues to have periods of agitation. Continues to be in a normal sinus rhythm, sinus bradycardia. Continues to require one-on-one supervision. He does have a Dobbhoff placed, he is refusing to eat drink or take any pills. Blood pressure 112/60 with a heart rate in the 50s. White blood cell count 9.5, hemoglobin 10.5, platelet count 137. Sodium 136, potassium 4.2, BUN 12, creatinine 1.0. 05/26/2020 Patient was seen and examined this morning, mechanically ventilated in the intensive care unit. He became hypoxic through the night last night with extreme agitation and was reintubated. He continues to be a febrile, hemodynamically stable, blood pressure 116/40 with a heart rate in the 50s. White blood cell count 10.5, hemoglobin 9.8, platelet count 199. Sodium 134, potassium 3.7, BUN 19, creatinine 0.8, magnesium 1.9. Precedex was switched to propofol. To be on a low-dose of levo fed. Remains in sinus bradycardia. Dobbhoff in place, 2 feedings were initiated yesterday. Objective - Vital Signs Vital signs: Vital Signs Temp 98.6 F 05/26/20 08:00 Pulse 56 L 05/26/20 09:00 Resp 20 05/26/20 09:00 BP 105/52 05/26/20 09:00 Pulse Ox 99 05/26/20 09:00 Intake & Output 05/25/20 05/26/20 05/26/20 18:59 06:59 18:59 Intake Total 1025.66 1474.765 375.904 Output Total 540 740 95 Balance 485.66 734.765 280.904 Weight 86.3 kg 90.9 kg Intake: IV 490 770 110 LR 490 770 110 Intake, IV Titration 365.66 274.765 135.904 Amount Clevidipine Butyrate 25 0 9.333 mg In Empty Bag 1 bag @ 1 MG/HR 2 mls/hr IV .Q24H [facility] Rx#:[id number] Dexmedetomidine/0.9% NaCl 15.66 38.369 (Pmx) 400 mcg In Empty Bag 1 bag @ Titrate IV . Q0M [facility] Rx#:[id number] Lactated Ringers 1,000 ml 350 70 @ 20 mls/hr IV .Q24H [facility] Rx#:[id number] Norepinephrine 4 mg In 25.153 135.904 Sodium Chloride 0.9% 250 ml @ 0.05 MCG/KG/MIN 16. 44 mls/hr IV .[id number] [facility] Rx#:[id number] propofoL 1,000 mg In 131.910 Empty Bag 1 bag @ Titrate IV .Q0M [facility] Rx#: [id number] Tube Feeding 140 340 110 Other 30 90 20 Output: Urine 540 740 95 Other: Voiding Method Indwelling Catheter Indwelling Catheter ABP, PAP, CO, CI - Last Documented Arterial Blood Pressure 116/41 Pulmonary Artery Pressure 32/15 Cardiac Output 4.4 Cardiac Index 2.2 - Exam PHYSICAL EXAMINATION: GENERAL: 74-year-old gentleman in no acute distress at the time of my examination HEENT: Head is atraumatic, normocephalic. Pupils equal, round. Sclera anicteric. Conjunctiva are clear. Mucous membranes of the mouth are moist. Neck is supple. There is no elevated jugular venous pressure. No carotid bruit is heard. HEART EXAMINATION: Heart S1-S2, sternum stable, A/V epicardial pacemaker wires removed . Heart hugger in place. CHEST EXAMINATION: Lungs reveal diminished air entry bilaterally to the bases. On mechanical ventilation. ABDOMEN: Soft, nontender. Bowel sounds are heard. No organomegaly noted. EXTREMITIES: 2+ peripheral pulses with trace evidence of peripheral edema, SCDs and antiembolism stockings in place. NEUROLOGIC patient is awake, alert and oriented 1 . . - Labs CBC & Chem 7: 05/26/20 03:50 05/26/20 03:50 Labs: Abnormal Lab Results - Last 24 Hours (Table) 05/25/20 05/25/20 05/25/20 Range/Units 10:46 13:15 17:18 RBC (4.30-5.90) m/uL Hgb (13.0-17.5) gm/dL Hct (39.0-53.0) % Neutrophils # (1.3-7.7) k/uL ABG pH (7.35-7.45) ABG pCO2 (35-45) mmHg ABG pO2 (83-108) mmHg ABG HCO3 (21-25) mmol/L ABG Total CO2 (19-24) mmol/L ABG O2 Saturation (94-97) % Sodium (137-145) mmol/L Glucose (74-99) mg/dL POC Glucose (mg/dL) 132 H 101 H 106 H (75-99) mg/dL Calcium (8.4-10.2) mg/dL Total Bilirubin (0.2-1.3) mg/dL Total Protein (6.3-8.2) g/dL Albumin (3.5-5.0) g/dL 05/25/20 05/25/20 05/25/20 Range/Units 20:52 22:49 23:07 RBC (4.30-5.90) m/uL Hgb (13.0-17.5) gm/dL Hct (39.0-53.0) % Neutrophils # (1.3-7.7) k/uL ABG pH 7.46 H (7.35-7.45) ABG pCO2 48 H 34 L (35-45) mmHg ABG pO2 51 L* >400 H (83-108) mmHg ABG HCO3 27 H (21-25) mmol/L ABG Total CO2 29 H 25 H (19-24) mmol/L ABG O2 Saturation 85.1 L 99.5 H (94-97) % Sodium (137-145) mmol/L Glucose (74-99) mg/dL POC Glucose (mg/dL) 200 H (75-99) mg/dL Calcium (8.4-10.2) mg/dL Total Bilirubin (0.2-1.3) mg/dL Total Protein (6.3-8.2) g/dL Albumin (3.5-5.0) g/dL 05/26/20 05/26/20 05/26/20 Range/Units 03:50 03:50 05:04 RBC 3.18 L (4.30-5.90) m/uL Hgb 9.8 L (13.0-17.5) gm/dL Hct 28.2 L (39.0-53.0) % Neutrophils # 8.1 H (1.3-7.7) k/uL ABG pH 7.48 H (7.35-7.45) ABG pCO2 31 L (35-45) mmHg ABG pO2 170 H (83-108) mmHg ABG HCO3 (21-25) mmol/L ABG Total CO2 (19-24) mmol/L ABG O2 Saturation 99.0 H (94-97) % Sodium 134 L (137-145) mmol/L Glucose 165 H (74-99) mg/dL POC Glucose (mg/dL) (75-99) mg/dL Calcium 8.2 L (8.4-10.2) mg/dL Total Bilirubin 1.7 H (0.2-1.3) mg/dL Total Protein 4.9 L (6.3-8.2) g/dL Albumin 2.7 L (3.5-5.0) g/dL 05/26/20 Range/Units 08:58 RBC (4.30-5.90) m/uL Hgb (13.0-17.5) gm/dL Hct (39.0-53.0) % Neutrophils # (1.3-7.7) k/uL ABG pH (7.35-7.45) ABG pCO2 (35-45) mmHg ABG pO2 (83-108) mmHg ABG HCO3 (21-25) mmol/L ABG Total CO2 (19-24) mmol/L ABG O2 Saturation (94-97) % Sodium (137-145) mmol/L Glucose (74-99) mg/dL POC Glucose (mg/dL) 203 H (75-99) mg/dL Calcium (8.4-10.2) mg/dL Total Bilirubin (0.2-1.3) mg/dL Total Protein (6.3-8.2) g/dL Albumin (3.5-5.0) g/dL Microbiology - Last 24 Hours (Table) 05/25/20 22:00 Gram Stain - Preliminary Sputum Sputum Culture - Preliminary 05/25/20 08:25 Urine Culture - Preliminary Urine,Voided Assessment and Plan Plan: Assessment and plan: 1. Unstable angina, severe 3 vessel coronary artery disease, status post three- vessel CABG 2. Recent stroke in November 2019 with continued short-term memory loss and impulsivity 3. Ischemic Cardiomyopathy with EF 45-50% 4. Hypertension 5. Hyperlipidemia 6. Insulin-dependent diabetes with preoperative hemoglobin A1c 8% 7. Asthma 8. Previous tobacco dependence with preoperative FEV1 75% of predicted 9. Family history of premature coronary artery disease with father diagnosed less than 60 years old. 10. Postoperative acute blood loss anemia and thrombocytopenia, expected Plan From cardiology's perspective, the patient's current medications have been reviewed which we will continue. Continue to monitor daily labs and x-rays. DNP note has been reviewed, I agree with a documented findings and plan of care. Patient was seen and examined.
[2020-05-26] MEDS: NOREPINEPHRINE 4 MG in SODIUM CHLORIDE 0.9% 250 ML IV SCH (10:03)
--- NOTE | 2020-05-26 10:20 | P.PN ---
Subjective Progress Note Date: 05/26/20 Principal diagnosis: Coronary artery disease status post three-vessel coronary artery bypass grafting. Postoperative day #2 The patient is seen today 05/24/2020 in follow-up in the intensive care unit. This is postoperative day #2 of a 3 vessel coronary artery bypass surgery. He received a DOOLEY to the LAD, reverse saphenous vein grafts to the obtuse marginal artery and posterior descending artery. He has since been extubated. He is currently on 2 L/m per nasal cannula to maintain O2 saturations in the 90s. He has lactated Ringer's running at 70 mL's per hour. Currently on Cleviprexl drip at 5 mg per hour. Chest x-ray reveals pulmonary vascular congestion. Patchy retrocardiac opacity also persists. Most likely atelectasis versus patchy pulmonary edema. White count 12.6. Hemoglobin 11.3. Platelet count 127. Sodium 136. Potassium 4.3. Creatinine 0.76. Mediastinal chest tube and pacer wires removed today. The patient is seen today 05/25/2020 in follow-up in the intensive care unit. This is postoperative day #3. He is maintaining O2 saturations in the 90s on 2 L/m per nasal cannula. Dobbhoff tube has been placed for nutrition. He remains on Precedex at 0.1 mg/kg/m. Lactated Ringer's at 70 miles per hour. Chest x- ray reveals low lung volumes, cardiomegaly, central vascular congestion left greater than right bibasilar infiltrate/atelectasis. Some worsening of the congestion compared to yesterday. White count 9.5. Hemoglobin 10.5. Platelet count 37,000. Sodium 136. Potassium 4.2. Creatinine 1.01. Patient has not been appropriate from the neurologic standpoint. Computed tomography scan of the brain today revealed no acute intracranial hemorrhage or midline shift. There is mild to moderate diffuse cerebral atrophy and chronic small vessel changes. No significant change compared to previous of November 2019. Sitter remains at the bedside. The patient is seen today 05/26/2020 in follow-up in the intensive care unit. This is postoperative day #4. Last evening he became more restless and hypoxemic and required reintubation. Current vent settings are assist-control with a rate of 20, tidal volume 450, FiO2 40% and a PEEP of 5. Morning blood gases revealed a PaO2 of 170, pCO2 31, pH 7.49. He is sedated on propofol at 40 mcg/kg/m. He is on norepinephrine at 0.02 mcg/kg/m. Lactated Ringer's at 20 ML's per hour. He is being nourished with Glucerna at 40 ML's per hour. Chest x-ray reveals improving lung markings, infiltrate remains at the left base. Cardiomegaly. Dobbhoff feeding tube in place. Urine culture pending, sputum culture pending. White count 10.5. Hemoglobin 9.8. Platelet count 199. Sodium 134. Potassium 3.7. Creatinine 0.86. Glucose 165. Remains on bronchodilators. Heparin for DVT prophylaxis. Objective - Vital Signs Vital signs: Vital Signs Temp 98.6 F 05/26/20 08:00 Pulse 56 L 05/26/20 09:00 Resp 20 05/26/20 09:00 BP 105/52 05/26/20 09:00 Pulse Ox 99 05/26/20 09:00 Intake & Output 05/25/20 05/26/20 05/26/20 18:59 06:59 18:59 Intake Total 1025.66 1474.765 477.180 Output Total 540 740 95 Balance 485.66 734.765 382.180 Weight 86.3 kg 90.9 kg Intake: IV 490 770 110 LR 490 770 110 Intake, IV Titration 365.66 274.765 237.180 Amount Clevidipine Butyrate 25 0 9.333 mg In Empty Bag 1 bag @ 1 MG/HR 2 mls/hr IV .Q24H [facility] Rx#:[id number] Dexmedetomidine/0.9% NaCl 15.66 38.369 (Pmx) 400 mcg In Empty Bag 1 bag @ Titrate IV . Q0M [facility] Rx#:[id number] Lactated Ringers 1,000 ml 350 70 @ 20 mls/hr IV .Q24H [facility] Rx#:[id number] Norepinephrine 4 mg In 25.153 147.083 Sodium Chloride 0.9% 250 ml @ 0.05 MCG/KG/MIN 16. 44 mls/hr IV .[id number] [facility] Rx#:[id number] propofoL 1,000 mg In 131.910 90.097 Empty Bag 1 bag @ Titrate IV .Q0M [facility] Rx#: [id number] Tube Feeding 140 340 110 Other 30 90 20 Output: Urine 540 740 95 Other: Voiding Method Indwelling Catheter Indwelling Catheter ABP, PAP, CO, CI - Last Documented Arterial Blood Pressure 116/41 Pulmonary Artery Pressure 32/15 Cardiac Output 4.4 Cardiac Index 2.2 - Exam GENERAL EXAM: Intubated, sedated 74-year-old gentleman, on the mechanical ventilator at 40% FiO2. HEAD: Normocephalic. EYES: Sluggish reaction of pupils, equal size. NOSE: Oral endotracheal and gastric tube secured in place. Clear with pink turbinates. THROAT: No erythema or exudates. NECK: No masses, no JVD. CHEST: Sternal dressing dry and intact. No chest wall deformity. LUNGS: Equal air entry with crackles in the bilateral posterior bases.. CVS: S1 and S2 normal with no audible murmur, regular rhythm. ABDOMEN: No hepatosplenomegaly, normal bowel sounds, no guarding or rigidity. SPINE: No scoliosis or deformity SKIN: No rashes CENTRAL NERVOUS SYSTEM: Tone is normal in all 4 extremities. EXTREMITIES: There is no peripheral edema. No clubbing, no cyanosis. Peripheral pulses are intact. - Labs CBC & Chem 7: 05/26/20 03:50 05/26/20 03:50 Labs: Abnormal Lab Results - Last 24 Hours (Table) 05/25/20 05/25/20 05/25/20 Range/Units 10:46 13:15 17:18 RBC (4.30-5.90) m/uL Hgb (13.0-17.5) gm/dL Hct (39.0-53.0) % Neutrophils # (1.3-7.7) k/uL ABG pH (7.35-7.45) ABG pCO2 (35-45) mmHg ABG pO2 (83-108) mmHg ABG HCO3 (21-25) mmol/L ABG Total CO2 (19-24) mmol/L ABG O2 Saturation (94-97) % Sodium (137-145) mmol/L Glucose (74-99) mg/dL POC Glucose (mg/dL) 132 H 101 H 106 H (75-99) mg/dL Calcium (8.4-10.2) mg/dL Total Bilirubin (0.2-1.3) mg/dL Total Protein (6.3-8.2) g/dL Albumin (3.5-5.0) g/dL 05/25/20 05/25/20 05/25/20 Range/Units 20:52 22:49 23:07 RBC (4.30-5.90) m/uL Hgb (13.0-17.5) gm/dL Hct (39.0-53.0) % Neutrophils # (1.3-7.7) k/uL ABG pH 7.46 H (7.35-7.45) ABG pCO2 48 H 34 L (35-45) mmHg ABG pO2 51 L* >400 H (83-108) mmHg ABG HCO3 27 H (21-25) mmol/L ABG Total CO2 29 H 25 H (19-24) mmol/L ABG O2 Saturation 85.1 L 99.5 H (94-97) % Sodium (137-145) mmol/L Glucose (74-99) mg/dL POC Glucose (mg/dL) 200 H (75-99) mg/dL Calcium (8.4-10.2) mg/dL Total Bilirubin (0.2-1.3) mg/dL Total Protein (6.3-8.2) g/dL Albumin (3.5-5.0) g/dL 05/26/20 05/26/20 05/26/20 Range/Units 03:50 03:50 05:04 RBC 3.18 L (4.30-5.90) m/uL Hgb 9.8 L (13.0-17.5) gm/dL Hct 28.2 L (39.0-53.0) % Neutrophils # 8.1 H (1.3-7.7) k/uL ABG pH 7.48 H (7.35-7.45) ABG pCO2 31 L (35-45) mmHg ABG pO2 170 H (83-108) mmHg ABG HCO3 (21-25) mmol/L ABG Total CO2 (19-24) mmol/L ABG O2 Saturation 99.0 H (94-97) % Sodium 134 L (137-145) mmol/L Glucose 165 H (74-99) mg/dL POC Glucose (mg/dL) (75-99) mg/dL Calcium 8.2 L (8.4-10.2) mg/dL Total Bilirubin 1.7 H (0.2-1.3) mg/dL Total Protein 4.9 L (6.3-8.2) g/dL Albumin 2.7 L (3.5-5.0) g/dL 05/26/20 Range/Units 08:58 RBC (4.30-5.90) m/uL Hgb (13.0-17.5) gm/dL Hct (39.0-53.0) % Neutrophils # (1.3-7.7) k/uL ABG pH (7.35-7.45) ABG pCO2 (35-45) mmHg ABG pO2 (83-108) mmHg ABG HCO3 (21-25) mmol/L ABG Total CO2 (19-24) mmol/L ABG O2 Saturation (94-97) % Sodium (137-145) mmol/L Glucose (74-99) mg/dL POC Glucose (mg/dL) 203 H (75-99) mg/dL Calcium (8.4-10.2) mg/dL Total Bilirubin (0.2-1.3) mg/dL Total Protein (6.3-8.2) g/dL Albumin (3.5-5.0) g/dL Microbiology - Last 24 Hours (Table) 05/25/20 22:00 Gram Stain - Preliminary Sputum Sputum Culture - Preliminary 05/25/20 08:25 Urine Culture - Preliminary Urine,Voided Assessment and Plan Assessment: 1 Coronary artery disease status post three-vessel coronary artery bypass grafting. Postoperative day #4 2 acute hypoxemic respiratory failure requiring reintubation and placed back on the mechanical ventilator on 05/25/2020, unexpected 3 Ischemic cardiomyopathy with ejection fraction 45-50% 4 Hyperlipidemia 5 Diabetes mellitus 6 Chronic bronchial asthma 7 History of chronic tobacco dependence 8 Recent CVA in November 2019 with ongoing altered mental status 9 Hypertension, history of Plan: The patient was seen and evaluated by Dr. Perdomo Chest x-ray, ABG and labs reviewed Decrease FiO2 to 25% Continue current treatment plan Continue bronchodilators every 4 hours We will continue to follow and make further recommendations based on his clinical status Critical care time 36 minutes I, the cosigning physician, performed a history & physical examination of the p atient. Lungs sounds crackles in the bilateral posterior bases. Maintaining good O2 saturations in the 90s on 40% FiO2 on the mechanical ventilator. I discussed the assessment and plan of care with my nurse practitioner, Katie Hinojosa. I attest to the above note as dictated by her.
[2020-05-26 12:08] LABS: Glucose,Whole Blood 190 mg/dL (75-99)
--- NOTE | 2020-05-26 15:11 | P.PN ---
Subjective Progress Note Date: 05/26/20 Marcos Perez is a 74 yo M with PMH of CAD, hx CVA with residual dementia, T2DM, HTN, HLD who is admitted s/p CABG. He is doing well today, hemodynamically stable and extubated, upright in chair. His sugars are controlled on insulin drip. Pt remains confused and agitated this morning, unable to remember the reason he is hospitalized and trying to remove lines and refusing oral medications. He has no specific concerns for me today. 05/24/2020 Seroquel initiated yesterday. 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 No further Haldol/Ativan since yesterday. Mediastinal chest tube removed. Currently on Cleveprex drip. Blood sugars controlled. Chest x-ray reporting continued mild pulmonary vascular congestion with slight improvement in bilateral base aeration. Prominent air persists below the right hemidiaphragm. Maintaining O2 sats in the 90s on 2 L nasal cannula. Afebrile, WBC 12.6. 05/25/2020 He remains on seroquel and precedex drip, he has been intermittently agitated pulling at lines and confused. Pt's vitals and glucose are well controlled today. CT head repeated and no interval change. Pt unable to take PO nutrition and enteral feedings started. 05/26/2020 Re-intubated during the night, FiO2 recently decreased to 25%/+5 of PEEP. ABGs noted. Chest x-ray reported improving lung markings with left base infiltrate.Continues on diprovan and small dose of Levophed drips. Tenacious secretions from endotracheal tube. Sputum culture pending. Afebrile. Urine culture pending. Objective - Vital Signs Vital signs: Vital Signs Temp 98.9 F 05/26/20 12:00 Pulse 57 L 05/26/20 12:00 Resp 20 05/26/20 12:00 BP 105/50 05/26/20 12:00 Pulse Ox 99 05/26/20 12:00 Intake & Output 05/25/20 05/26/20 05/26/20 18:59 06:59 18:59 Intake Total 1025.66 1474.765 686.606 Output Total 540 740 195 Balance 485.66 734.765 491.606 Weight 86.3 kg 90.9 kg Intake: IV 490 770 170 LR 490 770 170 Intake, IV Titration 365.66 274.765 246.606 Amount Clevidipine Butyrate 25 0 9.333 mg In Empty Bag 1 bag @ 1 MG/HR 2 mls/hr IV .Q24H [facility] Rx#:[id number] Dexmedetomidine/0.9% NaCl 15.66 38.369 (Pmx) 400 mcg In Empty Bag 1 bag @ Titrate IV . Q0M [facility] Rx#:[id number] Lactated Ringers 1,000 ml 350 70 @ 20 mls/hr IV .Q24H [facility] Rx#:[id number] Norepinephrine 4 mg In 25.153 156.509 Sodium Chloride 0.9% 250 ml @ 0.05 MCG/KG/MIN 16. 44 mls/hr IV .[id number] [facility] Rx#:[id number] propofoL 1,000 mg In 131.910 90.097 Empty Bag 1 bag @ Titrate IV .Q0M [facility] Rx#: [id number] Tube Feeding 140 340 230 Other 30 90 40 Output: Urine 540 740 195 Other: Voiding Method Indwelling Catheter Indwelling Catheter Indwelling Catheter ABP, PAP, CO, CI - Last Documented Arterial Blood Pressure 109/38 Pulmonary Artery Pressure 32/15 Cardiac Output 4.4 Cardiac Index 2.2 - Exam General: sedated and intubated on mechanical ventilation Eyes: PERRL, EOMI, conjunctiva normal HENT: normocephalic, atraumatic, OG tube present. Neck: supple, no JVD Lungs: normal respiratory effort, scattered rhonchi, bibasilar crackles CV: Regular rate and rhythm, no murmur. Peripheral pulses 2+ Abdomen: soft, nondistended, no organomegaly Skin: warm and dry. Neuro: Unable to assess this time secondary to being intubated and sedated. - Labs CBC & Chem 7: 05/26/20 03:50 05/26/20 03:50 Labs: Abnormal Lab Results - Last 24 Hours (Table) 05/25/20 05/25/20 05/25/20 Range/Units 13:15 17:18 20:52 RBC (4.30-5.90) m/uL Hgb (13.0-17.5) gm/dL Hct (39.0-53.0) % Neutrophils # (1.3-7.7) k/uL ABG pH (7.35-7.45) ABG pCO2 48 H (35-45) mmHg ABG pO2 51 L* (83-108) mmHg ABG HCO3 27 H (21-25) mmol/L ABG Total CO2 29 H (19-24) mmol/L ABG O2 Saturation 85.1 L (94-97) % Sodium (137-145) mmol/L Glucose (74-99) mg/dL POC Glucose (mg/dL) 101 H 106 H (75-99) mg/dL Calcium (8.4-10.2) mg/dL Total Bilirubin (0.2-1.3) mg/dL Total Protein (6.3-8.2) g/dL Albumin (3.5-5.0) g/dL 05/25/20 05/25/20 05/26/20 Range/Units 22:49 23:07 03:50 RBC 3.18 L (4.30-5.90) m/uL Hgb 9.8 L (13.0-17.5) gm/dL Hct 28.2 L (39.0-53.0) % Neutrophils # 8.1 H (1.3-7.7) k/uL ABG pH 7.46 H (7.35-7.45) ABG pCO2 34 L (35-45) mmHg ABG pO2 >400 H (83-108) mmHg ABG HCO3 (21-25) mmol/L ABG Total CO2 25 H (19-24) mmol/L ABG O2 Saturation 99.5 H (94-97) % Sodium (137-145) mmol/L Glucose (74-99) mg/dL POC Glucose (mg/dL) 200 H (75-99) mg/dL Calcium (8.4-10.2) mg/dL Total Bilirubin (0.2-1.3) mg/dL Total Protein (6.3-8.2) g/dL Albumin (3.5-5.0) g/dL 05/26/20 05/26/20 05/26/20 Range/Units 03:50 05:04 08:58 RBC (4.30-5.90) m/uL Hgb (13.0-17.5) gm/dL Hct (39.0-53.0) % Neutrophils # (1.3-7.7) k/uL ABG pH 7.48 H (7.35-7.45) ABG pCO2 31 L (35-45) mmHg ABG pO2 170 H (83-108) mmHg ABG HCO3 (21-25) mmol/L ABG Total CO2 (19-24) mmol/L ABG O2 Saturation 99.0 H (94-97) % Sodium 134 L (137-145) mmol/L Glucose 165 H (74-99) mg/dL POC Glucose (mg/dL) 203 H (75-99) mg/dL Calcium 8.2 L (8.4-10.2) mg/dL Total Bilirubin 1.7 H (0.2-1.3) mg/dL Total Protein 4.9 L (6.3-8.2) g/dL Albumin 2.7 L (3.5-5.0) g/dL 05/26/20 Range/Units 12:07 RBC (4.30-5.90) m/uL Hgb (13.0-17.5) gm/dL Hct (39.0-53.0) % Neutrophils # (1.3-7.7) k/uL ABG pH (7.35-7.45) ABG pCO2 (35-45) mmHg ABG pO2 (83-108) mmHg ABG HCO3 (21-25) mmol/L ABG Total CO2 (19-24) mmol/L ABG O2 Saturation (94-97) % Sodium (137-145) mmol/L Glucose (74-99) mg/dL POC Glucose (mg/dL) 190 H (75-99) mg/dL Calcium (8.4-10.2) mg/dL Total Bilirubin (0.2-1.3) mg/dL Total Protein (6.3-8.2) g/dL Albumin (3.5-5.0) g/dL Microbiology - Last 24 Hours (Table) 05/25/20 08:25 Urine Culture - Final Urine,Voided 05/25/20 22:00 Gram Stain - Preliminary Sputum Sputum Culture - Preliminary Assessment and Plan Assessment: (1) acute hypoxic respiratory failure, requiring reintubation (2) Status post coronary artery bypass graft Current Visit: Yes Status: Acute Code(s): Z95.1 - PRESENCE OF AORTOCORONARY BYPASS GRAFT SNOMED Code(s): 126848221 (3)Triple vessel coronary artery disease Current Visit: Yes Status: Acute Code(s): I25.10 - ATHSCL HEART DISEASE OF [place] CORONARY ARTERY W/O ANG PCTRS SNOMED Code(s): 213406214 (4) History of CVA with residual deficit Current Visit: Yes Status: Acute Code(s): I69.30 - UNSPECIFIED SEQUELAE OF CEREBRAL INFARCTION SNOMED Code(s): 148434003 (5) Type 2 diabetes mellitus Current Visit: Yes Status: Acute Code(s): E11.9 - TYPE 2 DIABETES MELLITUS WITHOUT COMPLICATIONS SNOMED Code(s): 26635914 (6) Dementia Current Visit: Yes Status: Acute Code(s): F03.90 - UNSPECIFIED DEMENTIA WITHOUT BEHAVIORAL DISTURBANCE SNOMED Code(s): 18078969 (7) Cerebral infarction, remote, resolved Current Visit: No Status: Acute Code(s): Z86.73 - PRSNL HX OF TIA (TIA), AND CEREB INFRC W/O RESID DEFICITS SNOMED Code(s): 460285638 Plan: Continue current medication regime ,monitoring and symptomatic treatment. Enteral feedings, strict aspiration precautions. Close monitoring of Accu-Cheks. Follow closely with blind aide and CT surgery. Prognosis guarded given multiple complex medical issues. The impression and plan of care has been dictated as directed. : I performed a history and examination of this patient, discussed the same with the dictator. I agree with the dictator's note ,documented as a scribe. Any additional findings or plans will be noted.
[2020-05-26 16:40] LABS: Glucose,Whole Blood 235 mg/dL (75-99)
[2020-05-26] MEDS ORDERED: INSULIN REGULAR BOLUS (FROM DRIP BAG) IV PRN (17:28)
[2020-05-26 18:31] LABS: Glucose,Whole Blood 249 mg/dL (75-99)
[2020-05-26] MEDS: INSULIN REGULAR 100 UNIT in SODIUM CHLORIDE 0.9% 100 ML IV SCH (18:34)
[2020-05-26 19:09] LABS: Glucose,Whole Blood 255 mg/dL (75-99)
[2020-05-26 20:08] LABS: Glucose,Whole Blood 233 mg/dL (75-99)
[2020-05-26] MEDS: SENNOSIDES-DOCUSATE SODIUM 1 EACH TAB PO SCH (20:22)
[2020-05-26 21:17] LABS: Glucose,Whole Blood 205 mg/dL (75-99)
[2020-05-26 22:15] LABS: Glucose,Whole Blood 187 mg/dL (75-99)
[2020-05-26] MEDS: ACETAMINOPHEN TAB 325 MG TAB PO PRN (22:17)
[2020-05-26 23:08] LABS: Glucose,Whole Blood 207 mg/dL (75-99)
[2020-05-27 00:05] LABS: Glucose,Whole Blood 211 mg/dL (75-99)
[2020-05-27 00:57] LABS: Glucose,Whole Blood 175 mg/dL (75-99)
[2020-05-27 02:07] LABS: Glucose,Whole Blood 156 mg/dL (75-99)
[2020-05-27] MEDS: IPRATROPIUM-ALBUTEROL 3 ML NEB INHALATION SCH ×6 (03:04→23:09)
[2020-05-27 03:06] LABS: Glucose,Whole Blood 140 mg/dL (75-99)
[2020-05-27] MEDS: INSULIN REGULAR 100 UNIT in SODIUM CHLORIDE 0.9% 100 ML IV SCH ×2 (03:10→22:14)
[2020-05-27 03:58] LABS: Glucose,Whole Blood 121 mg/dL (75-99)
[2020-05-27 04:07] LABS: Basophils # (A) 0.1 k/uL (0-0.2); Basophils % (A) 1 %; Eosinophils # (A) 0.2 k/uL (0-0.7); Eosinophils % (A) 3 %; HGB 9.9 gm/dL (13.0-17.5); Lymphocytes # (A) 1.8 k/uL (1.0-4.8); Lymphocytes % (A) 22 %; MCH 30.4 pg (25.0-35.0); MCV 89.3 fL (80.0-100.0); Mean Platelet Volume 8.3; Monocytes # (A) 0.5 k/uL (0-1.0); Monocytes % (A) 6 %; Neutrophils # (A) 5.1 k/uL (1.3-7.7); Neutrophils % (A) 65 %; Platelet Count 236 k/uL (150-450); RBC 3.25 m/uL (4.30-5.90); RDW 13.7 % (11.5-15.5); WBC 7.8 k/uL (3.8-10.6)
[2020-05-27 04:16] LABS: ALT 12 U/L (4-49); AST 16 U/L (17-59); African American GFR (CKD) >90 (>60 ml/min/1.73 sqM); Albumin 2.5 g/dL (3.5-5.0); Alkaline Phosphatase 46 U/L (38-126); Anion Gap 3 mmol/L; Blood Urea Nitrogen 27 mg/dL (9-20); Calcium 8.3 mg/dL (8.4-10.2); Carbon Dioxide 29 mmol/L (22-30); Chloride 103 mmol/L (98-107); Glucose 136 mg/dL (74-99); Magnesium 2.4 mg/dL (1.6-2.3); Non-African American GFR(CKD) 85 (>60 ml/min/1.73 sqM); Potassium 3.4 mmol/L (3.5-5.1); Sodium 135 mmol/L (137-145); Total Protein 4.8 g/dL (6.3-8.2)
[2020-05-27 05:02] LABS: Glucose,Whole Blood 115 mg/dL (75-99)
[2020-05-27] MEDS: HEPARIN SODIUM,PORCINE 5,000 UNIT/ML 1 ML VIAL SQ SCH ×3 (05:04→20:23)
[2020-05-27] MEDS: POTASSIUM BICARBONATE/CIT AC 20 MEQ TABLET.EFF NG-TUBE SCH ×2 (05:04→08:04)
[2020-05-27 05:06] LABS: ABG Base Excess 7.9 mmol/L; ABG HCO3 30 mmol/L (21-25); ABG Oxygen Saturation 98.4 % (94-97); ABG PCO2 33 mmHg (35-45); ABG PO2 86 mmHg (83-108); ABG TCO2 31 mmol/L (19-24)
[2020-05-27 05:34] LABS: ABG PH 7.57 (7.35-7.45)
[2020-05-27 06:31] LABS: Glucose,Whole Blood 124 mg/dL (75-99)
[2020-05-27] MEDS: NOREPINEPHRINE 4 MG in SODIUM CHLORIDE 0.9% 250 ML IV SCH ×2 (06:34→20:36)
[2020-05-27 07:17] LABS: Glucose,Whole Blood 140 mg/dL (75-99)
[2020-05-27] MEDS: PANTOPRAZOLE 40 MG/10 ML VIAL IVP SCH (08:03)
[2020-05-27] MEDS: polyethylene glycoL 3350 17 GM POWD.PACK PO SCH (08:04)
[2020-05-27] MEDS: CHLORHEXIDINE GLUCONATE 15 ML CUP MUCOUS MEM SCH ×2 (08:04→20:23)
[2020-05-27] MEDS: QUEtiapine 50 MG TAB PO SCH ×2 (08:04→20:23)
[2020-05-27] MEDS: INSULIN DETEMIR (LEVEMIR) 100 UNIT/ML SYR SQ SCH (08:04)
[2020-05-27] MEDS: CLOPIDOGREL 75 MG TAB PO SCH (08:04)
[2020-05-27] MEDS: ASPIRIN 325 MG TAB NG-TUBE SCH (08:04)
[2020-05-27] MEDS: METOPROLOL TARTRATE 25 MG TAB NG-TUBE SCH ×2 (08:04→20:23)
[2020-05-27] MEDS: ATORVASTATIN 40 MG TAB PO SCH (08:04)
[2020-05-27] MEDS: bisacodyL 10 MG SUPP RECTAL SCH (08:04)
--- NOTE | 2020-05-27 08:04 | XR ---
EXAMINATION TYPE: XR chest 1V portable DATE OF EXAM: 05/27/2020 Comparison: 05/26/2020 Clinical History: 74-year-old male Tube placement Findings: Extensive overlying wires and leads limiting assessment. ET tube is satisfactory. Dobbhoff tube cours es below the diaphragm. The weighted end probably in the gastric body region. Median sternotomy wires and post-CABG clips. Lordotic positioning. Focal retrocardiac and left basilar opacity remains. Hear t upper limits of normal in size. Impression: Prominent focal retrocardiac and left basilar airspace disease remains. Lordotic positioning.
[2020-05-27 08:11] LABS: Glucose,Whole Blood 159 mg/dL (75-99)
[2020-05-27] MEDS ORDERED: FUROSEMIDE 10 MG/ML 4 ML VIAL IV STA (08:42)
[2020-05-27] MEDS ORDERED: POTASSIUM BICARBONATE/CIT AC 20 MEQ TABLET.EFF PO ONE (09:00)
[2020-05-27 09:15] LABS: Glucose,Whole Blood 135 mg/dL (75-99)
--- NOTE | 2020-05-27 09:26 | P.PN ---
Subjective Progress Note Date: 05/27/20 Principal diagnosis: Unstable angina, severe calcific 3 vessel coronary artery disease. Previous medical history of recent stroke in November 2019 with continued short-term memory loss and impulsivity, cardiomyopathy with EF 45-50%, hypertension, hyperlipidemia, insulin-dependent diabetes with preoperative hemoglobin A1c 8%, asthma, previous tobacco dependence with preoperative FEV1 75% of predicted, and family history of premature coronary artery disease with father diagnosed less than 60 years old. POD #5 coronary artery bypass grafting 3 with the left internal mammary artery to the left anterior descending artery, reverse saphenous vein graft off the aorta to the first obtuse marginal artery and the posterior descending artery with endoscopic vein harvesting of the left lower extremity greater saphenous vein, clip ligation of the left atrial appendage with a 35 mm AtriClip and intraoperative transesophageal echocardiogram. Postoperative acute blood loss anemia and thrombocytopenia, expected outcomes given hemodilution and cardiopulmonary bypass pump Acute hypoxic respiratory failure requiring re-intubation, unexpected, unknown cause The patient is currently laying in bed mechanically ventilated and sedated in the intensive care unit. Remains in sinus rhythm to sinus bradycardia, hemodynamically stable, off levo. TF continues, patient did have bowel movement last night per RN. ABGs this am demonsrtrate metabolic alkalosis, hypokalemia present, otherwise no other new concerns. Sister Johanne updated by phone. Objective - Vital Signs Vital signs: Vital Signs Temp 98.4 F 05/27/20 04:00 Pulse 64 05/27/20 09:05 Resp 20 05/27/20 07:00 BP 121/54 05/27/20 07:00 Pulse Ox 97 05/27/20 07:00 Intake & Output 05/26/20 05/27/20 05/27/20 18:59 06:59 18:59 Intake Total 5242.798 3168.621 104.252 Output Total 445 390 40 Balance 773.606 967.621 64.252 Weight 90.9 kg 86.9 kg Intake: IV 290 240 20 LR 290 240 20 Intake, IV Titration 346.606 379.621 84.252 Amount Insulin Regular 100 unit 80.395 4.351 In Sodium Chloride 0.9% 100 ml @ Per Protocol IV .Q0M [facility] Rx#:[id number] Norepinephrine 4 mg In 156.509 119.355 Sodium Chloride 0.9% 250 ml @ 0.05 MCG/KG/MIN 16. 44 mls/hr IV .[id number] [facility] Rx#:[id number] propofoL 1,000 mg In 190.097 179.871 79.901 Empty Bag 1 bag @ Titrate IV .Q0M [facility] Rx#: [id number] Tube Feeding 512 648 Other 70 90 Output: Urine 445 390 40 Other: Voiding Method Indwelling Catheter Indwelling Catheter ABP, PAP, CO, CI - Last Documented Arterial Blood Pressure 141/44 Pulmonary Artery Pressure 32/15 Cardiac Output 4.4 Cardiac Index 2.2 - Constitutional General appearance: Present: no acute distress - Respiratory Details: Lungs sounds diminished bilaterally. Respirations even, nonlabored on mechanical ventilation. Current vent settings FiO2 25%, TV 450, RR 20, PEEP 5. ABGs this AM on those settings 7.57/33/86/30/98%/7.9. 8.0 ETT present, 22 @ the lip. - Cardiovascular Details: S1, S2 present. Regular rate and rhythm, sinus bradycardia to sinus rhythm on telemetry with heart rate in the 50-60s. Sternum stable. Ventricular epicardial pacemaker wire present, connected to generator, VVI mode with backup rate 50 bpm. Palpable peripheral pulses bilaterally. Trace left lower extremity edema present. Heart hugger in place, antiembolism stockings, SCDs present. - Gastrointestinal Gastrointestinal Comment(s): Abdomen soft, nontender, nondistended. Active bowel sounds present [address] with tube feeding infusing at 54 mL/hr. Positive BM 05/26/20 per nursing - Genitourinary Genitourinary Comment(s): Hearn present draining clear yellow urine. Output 20-40 mL per hour overnight, 835 mL in the last 24 hours - Integumentary Integumentary Comment(s): Skin is warm and dry. Anterior chest incision well approximated, small amount serous drainage present, no purulent drainage. Left lower extremity EVH site well approximated without redness or drainage. - Neurologic Neurologic Comment(s): sedated on mechanical ventilation, withdraws to painful stimuli, PERRLA 3 mm - Psychiatric Psychiatric Comment(s): currently sedated with propofol - Allied health notes Allied health notes reviewed: nursing - Labs CBC & Chem 7: 05/27/20 03:45 05/27/20 03:45 Labs: Abnormal Lab Results - Last 24 Hours (Table) 05/26/20 05/26/20 05/26/20 Range/Units 12:07 16:39 18:28 RBC (4.30-5.90) m/uL Hgb (13.0-17.5) gm/dL Hct (39.0-53.0) % ABG pH (7.35-7.45) ABG pCO2 (35-45) mmHg ABG HCO3 (21-25) mmol/L ABG Total CO2 (19-24) mmol/L ABG O2 Saturation (94-97) % Sodium (137-145) mmol/L Potassium (3.5-5.1) mmol/L BUN (9-20) mg/dL Glucose (74-99) mg/dL POC Glucose (mg/dL) 190 H 235 H 249 H (75-99) mg/dL Calcium (8.4-10.2) mg/dL Magnesium (1.6-2.3) mg/dL AST (17-59) U/L Total Protein (6.3-8.2) g/dL Albumin (3.5-5.0) g/dL 05/26/20 05/26/20 05/26/20 Range/Units 19:08 20:07 21:16 RBC (4.30-5.90) m/uL Hgb (13.0-17.5) gm/dL Hct (39.0-53.0) % ABG pH (7.35-7.45) ABG pCO2 (35-45) mmHg ABG HCO3 (21-25) mmol/L ABG Total CO2 (19-24) mmol/L ABG O2 Saturation (94-97) % Sodium (137-145) mmol/L Potassium (3.5-5.1) mmol/L BUN (9-20) mg/dL Glucose (74-99) mg/dL POC Glucose (mg/dL) 255 H 233 H 205 H (75-99) mg/dL Calcium (8.4-10.2) mg/dL Magnesium (1.6-2.3) mg/dL AST (17-59) U/L Total Protein (6.3-8.2) g/dL Albumin (3.5-5.0) g/dL 05/26/20 05/26/2005/27/20 Range/Units 22:14 23:06 00:03 RBC (4.30-5.90) m/uL Hgb (13.0-17.5) gm/dL Hct (39.0-53.0) % ABG pH (7.35-7.45) ABG pCO2 (35-45) mmHg ABG HCO3 (21-25) mmol/L ABG Total CO2 (19-24) mmol/L ABG O2 Saturation (94-97) % Sodium (137-145) mmol/L Potassium (3.5-5.1) mmol/L BUN (9-20) mg/dL Glucose (74-99) mg/dL POC Glucose (mg/dL) 187 H 207 H 211 H (75-99) mg/dL Calcium (8.4-10.2) mg/dL Magnesium (1.6-2.3) mg/dL AST (17-59) U/L Total Protein (6.3-8.2) g/dL Albumin (3.5-5.0) g/dL 05/27/20 05/27/20 05/27/20 Range/Units 00:56 02:05 03:05 RBC (4.30-5.90) m/uL Hgb (13.0-17.5) gm/dL Hct (39.0-53.0) % ABG pH (7.35-7.45) ABG pCO2 (35-45) mmHg ABG HCO3 (21-25) mmol/L ABG Total CO2 (19-24) mmol/L ABG O2 Saturation (94-97) % Sodium (137-145) mmol/L Potassium (3.5-5.1) mmol/L BUN (9-20) mg/dL Glucose (74-99) mg/dL POC Glucose (mg/dL) 175 H 156 H 140 H (75-99) mg/dL Calcium (8.4-10.2) mg/dL Magnesium (1.6-2.3) mg/dL AST (17-59) U/L Total Protein (6.3-8.2) g/dL Albumin (3.5-5.0) g/dL 05/27/20 05/27/20 05/27/20 Range/Units 03:45 03:45 03:57 RBC 3.25 L (4.30-5.90) m/uL Hgb 9.9 L (13.0-17.5) gm/dL Hct 29.0 L (39.0-53.0) % ABG pH (7.35-7.45) ABG pCO2 (35-45) mmHg ABG HCO3 (21-25) mmol/L ABG Total CO2 (19-24) mmol/L ABG O2 Saturation (94-97) % Sodium 135 L (137-145) mmol/L Potassium 3.4 L (3.5-5.1) mmol/L BUN 27 H (9-20) mg/dL Glucose 136 H (74-99) mg/dL POC Glucose (mg/dL) 121 H (75-99) mg/dL Calcium 8.3 L (8.4-10.2) mg/dL Magnesium 2.4 H (1.6-2.3) mg/dL AST 16 L (17-59) U/L Total Protein 4.8 L (6.3-8.2) g/dL Albumin 2.5 L (3.5-5.0) g/dL 05/27/20 05/27/20 05/27/20 Range/Units 04:58 05:01 06:30 RBC (4.30-5.90) m/uL Hgb (13.0-17.5) gm/dL Hct (39.0-53.0) % ABG pH 7.57 H* (7.35-7.45) ABG pCO2 33 L (35-45) mmHg ABG HCO3 30 H (21-25) mmol/L ABG Total CO2 31 H (19-24) mmol/L ABG O2 Saturation 98.4 H (94-97) % Sodium (137-145) mmol/L Potassium (3.5-5.1) mmol/L BUN (9-20) mg/dL Glucose (74-99) mg/dL POC Glucose (mg/dL) 115 H 124 H (75-99) mg/dL Calcium (8.4-10.2) mg/dL Magnesium (1.6-2.3) mg/dL AST (17-59) U/L Total Protein (6.3-8.2) g/dL Albumin (3.5-5.0) g/dL 05/27/20 05/27/20 Range/Units 07:16 08:08 RBC (4.30-5.90) m/uL Hgb (13.0-17.5) gm/dL Hct (39.0-53.0) % ABG pH (7.35-7.45) ABG pCO2 (35-45) mmHg ABG HCO3 (21-25) mmol/L ABG Total CO2 (19-24) mmol/L ABG O2 Saturation (94-97) % Sodium (137-145) mmol/L Potassium (3.5-5.1) mmol/L BUN (9-20) mg/dL Glucose (74-99) mg/dL POC Glucose (mg/dL) 140 H 159 H (75-99) mg/dL Calcium (8.4-10.2) mg/dL Magnesium (1.6-2.3) mg/dL AST (17-59) U/L Total Protein (6.3-8.2) g/dL Albumin (3.5-5.0) g/dL Microbiology - Last 24 Hours (Table) 05/25/20 08:25 Urine Culture - Final Urine,Voided 05/25/20 22:00 Gram Stain - Preliminary Sputum Sputum Culture - Preliminary - Imaging and Cardiology Chest x-ray: report reviewed, image reviewed Assessment and Plan Assessment: 1. Unstable angina, severe calcific 3 vessel coronary artery disease, status post three-vessel CABG 2. Recent stroke in November 2019 with continued short-term memory loss and impulsivity 3. Cardiomyopathy with EF 45-50% 4. Hypertension 5. Hyperlipidemia 6. Insulin-dependent diabetes with preoperative hemoglobin A1c 8% 7. Asthma 8. Previous tobacco dependence with preoperative FEV1 75% of predicted 9. Family history of premature coronary artery disease with father diagnosed less than 60 years old. 10. Postoperative acute blood loss anemia and thrombocytopenia, expected 11. Acute hypoxic respiratory failure requiring reintubation, unexpected 12. Metabolic alkalosis, hypokalemia Plan: 1. Continue aspirin, statin, Plavix, beta sarah therapy. 2. Ventilator managment, bronchodilators per pulmonology. Keep sedation as light as possible 3. Will monitor daily labs and x-rays. Electrolyte replacement per protocol, replace potassium to keep K>4.2. Lasix 40 mg IVP x 1 today 4. GI/DVT prophylaxis 5. Pain control with current medication regimen 6. Insulin management per Dr. Tafoya 7. Continue Hearn catheter for another 24 hours. 8. Strict accurate intake and output, daily weight 9. Continue tube feedings, will place on hold at midnight for PEG tube placement tomorrow 10. Dr. Zamora consulted for PEG tube placement. Discussed with patient's sister Johanne via phone, risks and benefits reviewed, all questions answered, sister does consent to PEG tube placement 11. Social work/case management on consult for discharge planning, patient likely will need rehab at discharge 12. More recommendations to follow based on patient's progress Time with Patient: Greater than 30
[2020-05-27 10:15] LABS: Glucose,Whole Blood 141 mg/dL (75-99)
--- NOTE | 2020-05-27 10:46 | P.PN ---
Subjective Progress Note Date: 05/27/20 Principal diagnosis: Coronary artery disease status post three-vessel coronary artery bypass grafting. Postoperative day #2 The patient is seen today 05/24/2020 in follow-up in the intensive care unit. This is postoperative day #2 of a 3 vessel coronary artery bypass surgery. He received a DOOLEY to the LAD, reverse saphenous vein grafts to the obtuse marginal artery and posterior descending artery. He has since been extubated. He is currently on 2 L/m per nasal cannula to maintain O2 saturations in the 90s. He has lactated Ringer's running at 70 mL's per hour. Currently on Cleviprexl drip at 5 mg per hour. Chest x-ray reveals pulmonary vascular congestion. Patchy retrocardiac opacity also persists. Most likely atelectasis versus patchy pulmonary edema. White count 12.6. Hemoglobin 11.3. Platelet count 127. Sodium 136. Potassium 4.3. Creatinine 0.76. Mediastinal chest tube and pacer wires removed today. The patient is seen today 05/25/2020 in follow-up in the intensive care unit. This is postoperative day #3. He is maintaining O2 saturations in the 90s on 2 L/m per nasal cannula. Dobbhoff tube has been placed for nutrition. He remains on Precedex at 0.1 mg/kg/m. Lactated Ringer's at 70 miles per hour. Chest x- ray reveals low lung volumes, cardiomegaly, central vascular congestion left greater than right bibasilar infiltrate/atelectasis. Some worsening of the congestion compared to yesterday. White count 9.5. Hemoglobin 10.5. Platelet count 37,000. Sodium 136. Potassium 4.2. Creatinine 1.01. Patient has not been appropriate from the neurologic standpoint. Computed tomography scan of the brain today revealed no acute intracranial hemorrhage or midline shift. There is mild to moderate diffuse cerebral atrophy and chronic small vessel changes. No significant change compared to previous of November 2019. Sitter remains at the bedside. The patient is seen today 05/26/2020 in follow-up in the intensive care unit. This is postoperative day #4. Last evening he became more restless and hypoxemic and required reintubation. Current vent settings are assist-control with a rate of 20, tidal volume 450, FiO2 40% and a PEEP of 5. Morning blood gases revealed a PaO2 of 170, pCO2 31, pH 7.49. He is sedated on propofol at 40 mcg/kg/m. He is on norepinephrine at 0.02 mcg/kg/m. Lactated Ringer's at 20 ML's per hour. He is being nourished with Glucerna at 40 ML's per hour. Chest x-ray reveals improving lung markings, infiltrate remains at the left base. Cardiomegaly. Dobbhoff feeding tube in place. Urine culture pending, sputum culture pending. White count 10.5. Hemoglobin 9.8. Platelet count 199. Sodium 134. Potassium 3.7. Creatinine 0.86. Glucose 165. Remains on bronchodilators. Heparin for DVT prophylaxis. The patient is seen today 05/27/2020 in follow-up in the intensive care unit. This postoperative day #5. He remains intubated on mechanical ventilator with assist control of 20, tidal volume 450, FiO2 25% and a PEEP of 5. Morning blood gases reveal pO2 86, pCO2 33, pH H7.57. He is currently sedated on propofol at 30 her kilogram per minute. Insulin drip at 6.5 units per hour. Lactated Ringer's at 20 mg liters per hour. He is being nourished with vital HP 54 ML's per hour which is goal. Plan is for PEG tube placement tomorrow. Urine culture revealed no growth. Sputum culture pending. White count 7.8. Hemoglobin 9.9. Sodium 135. Potassium 3.4. Creatinine 0.89. Chest x-ray reveals prominent focal retrocardiac and left basilar airspace disease. Objective - Vital Signs Vital signs: Vital Signs Temp 100.1 F H 05/27/20 08:00 Pulse 57 L 05/27/20 10:00 Resp 20 05/27/20 10:00 BP 99/50 05/27/20 10:00 Pulse Ox 95 05/27/20 10:00 Intake & Output 05/26/20 05/27/20 05/27/20 18:59 06:59 18:59 Intake Total 4253.110 2374.621 524.778 Output Total 445 390 285 Balance 773.606 967.621 239.778 Weight 90.9 kg 86.9 kg Intake: IV 290 240 80 LR 290 240 80 Intake, IV Titration 346.606 379.621 132.778 Amount Insulin Regular 100 unit 80.395 17.153 In Sodium Chloride 0.9% 100 ml @ Per Protocol IV .Q0M [facility] Rx#:[id number] Norepinephrine 4 mg In 156.509 119.355 Sodium Chloride 0.9% 250 ml @ 0.05 MCG/KG/MIN 16. 44 mls/hr IV .[id number] [facility] Rx#:[id number] propofoL 1,000 mg In 190.097 179.871 115.625 Empty Bag 1 bag @ Titrate IV .Q0M [facility] Rx#: [id number] Tube Feeding 512 648 162 Other 70 90 150 Output: Urine 445 390 285 Other: Voiding Method Indwelling Catheter Indwelling Catheter Indwelling Catheter ABP, PAP, CO, CI - Last Documented Arterial Blood Pressure 105/35 Pulmonary Artery Pressure 32/15 Cardiac Output 4.4 Cardiac Index 2.2 - Exam GENERAL EXAM: Intubated, sedated 74-year-old gentleman, on the mechanical ventilator at 25% FiO2. HEAD: Normocephalic. EYES: Sluggish reaction of pupils, equal size. NOSE: Oral endotracheal and gastric tube secured in place. Clear with pink turbinates. THROAT: No erythema or exudates. NECK: No masses, no JVD. CHEST: Sternal dressing dry and intact. No chest wall deformity. LUNGS: Equal air entry with crackles in the bilateral posterior bases.. CVS: S1 and S2 normal with no audible murmur, regular rhythm. ABDOMEN: No hepatosplenomegaly, normal bowel sounds, no guarding or rigidity. SPINE: No scoliosis or deformity SKIN: No rashes CENTRAL NERVOUS SYSTEM: Tone is normal in all 4 extremities. EXTREMITIES: There is no peripheral edema. No clubbing, no cyanosis. Peripheral pulses are intact. - Labs CBC & Chem 7: 05/27/20 03:45 05/27/20 03:45 Labs: Abnormal Lab Results - Last 24 Hours (Table) 05/26/20 05/26/20 05/26/20 Range/Units 12:07 16:39 18:28 RBC (4.30-5.90) m/uL Hgb (13.0-17.5) gm/dL Hct (39.0-53.0) % ABG pH (7.35-7.45) ABG pCO2 (35-45) mmHg ABG HCO3 (21-25) mmol/L ABG Total CO2 (19-24) mmol/L ABG O2 Saturation (94-97) % Sodium (137-145) mmol/L Potassium (3.5-5.1) mmol/L BUN (9-20) mg/dL Glucose (74-99) mg/dL POC Glucose (mg/dL) 190 H 235 H 249 H (75-99) mg/dL Calcium (8.4-10.2) mg/dL Magnesium (1.6-2.3) mg/dL AST (17-59) U/L Total Protein (6.3-8.2) g/dL Albumin (3.5-5.0) g/dL 05/26/20 05/26/20 05/26/20 Range/Units 19:08 20:07 21:16 RBC (4.30-5.90) m/uL Hgb (13.0-17.5) gm/dL Hct (39.0-53.0) % ABG pH (7.35-7.45) ABG pCO2 (35-45) mmHg ABG HCO3 (21-25) mmol/L ABG Total CO2 (19-24) mmol/L ABG O2 Saturation (94-97) % Sodium (137-145) mmol/L Potassium (3.5-5.1) mmol/L BUN (9-20) mg/dL Glucose (74-99) mg/dL POC Glucose (mg/dL) 255 H 233 H 205 H (75-99) mg/dL Calcium (8.4-10.2) mg/dL Magnesium (1.6-2.3) mg/dL AST (17-59) U/L Total Protein (6.3-8.2) g/dL Albumin (3.5-5.0) g/dL 05/26/20 05/26/20 05/27/20 Range/Units 22:14 23:06 00:03 RBC (4.30-5.90) m/uL Hgb (13.0-17.5) gm/dL Hct (39.0-53.0) % ABG pH (7.35-7.45) ABG pCO2 (35-45) mmHg ABG HCO3 (21-25) mmol/L ABG Total CO2 (19-24) mmol/L ABG O2 Saturation (94-97) % Sodium (137-145) mmol/L Potassium (3.5-5.1) mmol/L BUN (9-20) mg/dL Glucose (74-99) mg/dL POC Glucose (mg/dL) 187 H 207 H 211 H (75-99) mg/dL Calcium (8.4-10.2) mg/dL Magnesium (1.6-2.3) mg/dL AST (17-59) U/L Total Protein (6.3-8.2) g/dL Albumin (3.5-5.0) g/dL 05/27/20 05/27/20 05/27/20 Range/Units 00:56 02:05 03:05 RBC (4.30-5.90) m/uL Hgb (13.0-17.5) gm/dL Hct (39.0-53.0) % ABG pH (7.35-7.45) ABG pCO2 (35-45) mmHg ABG HCO3 (21-25) mmol/L ABG Total CO2 (19-24) mmol/L ABG O2 Saturation (94-97) % Sodium (137-145) mmol/L Potassium (3.5-5.1) mmol/L BUN (9-20) mg/dL Glucose (74-99) mg/dL POC Glucose (mg/dL) 175 H 156 H 140 H (75-99) mg/dL Calcium (8.4-10.2) mg/dL Magnesium (1.6-2.3) mg/dL AST (17-59) U/L Total Protein (6.3-8.2) g/dL Albumin (3.5-5.0) g/dL 05/27/20 05/27/20 05/27/20 Range/Units 03:45 03:45 03:57 RBC 3.25 L (4.30-5.90) m/uL Hgb 9.9 L (13.0-17.5) gm/dL Hct 29.0 L (39.0-53.0) % ABG pH (7.35-7.45) ABG pCO2 (35-45) mmHg ABG HCO3 (21-25) mmol/L ABG Total CO2 (19-24) mmol/L ABG O2 Saturation (94-97) % Sodium 135 L (137-145) mmol/L Potassium 3.4 L (3.5-5.1) mmol/L BUN 27 H (9-20) mg/dL Glucose 136 H (74-99) mg/dL POC Glucose (mg/dL) 121 H (75-99) mg/dL Calcium 8.3 L (8.4-10.2) mg/dL Magnesium 2.4 H (1.6-2.3) mg/dL AST 16 L (17-59) U/L Total Protein 4.8 L (6.3-8.2) g/dL Albumin 2.5 L (3.5-5.0) g/dL 05/27/20 05/27/20 05/27/20 Range/Units 04:58 05:01 06:30 RBC (4.30-5.90) m/uL Hgb (13.0-17.5) gm/dL Hct (39.0-53.0) % ABG pH 7.57 H* (7.35-7.45) ABG pCO2 33 L (35-45) mmHg ABG HCO3 30 H (21-25) mmol/L ABG Total CO2 31 H (19-24) mmol/L ABG O2 Saturation 98.4 H (94-97) % Sodium (137-145) mmol/L Potassium (3.5-5.1) mmol/L BUN (9-20) mg/dL Glucose (74-99) mg/dL POC Glucose (mg/dL) 115 H 124 H (75-99) mg/dL Calcium (8.4-10.2) mg/dL Magnesium (1.6-2.3) mg/dL AST (17-59) U/L Total Protein (6.3-8.2) g/dL Albumin (3.5-5.0) g/dL 05/27/20 05/27/20 05/27/20 Range/Units 07:16 08:08 09:14 RBC (4.30-5.90) m/uL Hgb (13.0-17.5) gm/dL Hct (39.0-53.0) % ABG pH (7.35-7.45) ABG pCO2 (35-45) mmHg ABG HCO3 (21-25) mmol/L ABG Total CO2 (19-24) mmol/L ABG O2 Saturation (94-97) % Sodium (137-145) mmol/L Potassium (3.5-5.1) mmol/L BUN (9-20) mg/dL Glucose (74-99) mg/dL POC Glucose (mg/dL) 140 H 159 H 135 H (75-99) mg/dL Calcium (8.4-10.2) mg/dL Magnesium (1.6-2.3) mg/dL AST (17-59) U/L Total Protein (6.3-8.2) g/dL Albumin (3.5-5.0) g/dL 05/27/20 Range/Units 10:13 RBC (4.30-5.90) m/uL Hgb (13.0-17.5) gm/dL Hct (39.0-53.0) % ABG pH (7.35-7.45) ABG pCO2 (35-45) mmHg ABG HCO3 (21-25) mmol/L ABG Total CO2 (19-24) mmol/L ABG O2 Saturation (94-97) % Sodium (137-145) mmol/L Potassium (3.5-5.1) mmol/L BUN (9-20) mg/dL Glucose (74-99) mg/dL POC Glucose (mg/dL) 141 H (75-99) mg/dL Calcium (8.4-10.2) mg/dL Magnesium (1.6-2.3) mg/dL AST (17-59) U/L Total Protein (6.3-8.2) g/dL Albumin (3.5-5.0) g/dL Microbiology - Last 24 Hours (Table) 05/25/20 08:25 Urine Culture - Final Urine,Voided 05/25/20 22:00 Gram Stain - Preliminary Sputum Sputum Culture - Preliminary Assessment and Plan Assessment: 1 Coronary artery disease status post three-vessel coronary artery bypass grafting. Postoperative day #5 2 Acute hypoxemic respiratory failure requiring reintubation and placed back on the mechanical ventilator on 05/25/2020, unexpected 3 Ischemic cardiomyopathy with ejection fraction 45-50% 4 Hyperlipidemia 5 Diabetes mellitus 6 Chronic bronchial asthma 7 History of chronic tobacco dependence 8 Recent CVA in November 2019 with ongoing altered mental status 9 Hypertension, history of Plan: The patient was seen and evaluated by Dr. Perdomo Chest x-ray, ABG and labs reviewed Continue with daily interruption of sedation. Potassium replacement Continue bronchodilators every 4 hours We will continue to follow and make further recommendations based on his clinical status Critical care time 38 minutes I, the cosigning physician, performed a history & physical examination of the patient. Lungs sounds crackles in the bilateral posterior bases. Maintaining good O2 saturations in the 90s on 25% FiO2 on the mechanical ventilator. I d iscussed the assessment and plan of care with my nurse practitioner, Katie Hinojosa. I attest to the above note as dictated by her. Time with Patient: Greater than 30
--- NOTE | 2020-05-27 11:04 | P.GSCN ---
History of Present Illness Consult date: 05/27/20 Reason for Consult: Malnutrition History of present illness: This a 74-year-old male underwent recent CABG. Patient required reintubation for respiratory failure. I been asked him regarding PEG tube placement for malnutrition. Past Medical History Past Medical History: Asthma, Coronary Artery Disease (CAD), CVA/TIA, Diabetes Mellitus, GERD/Reflux, Hearing Disorder / Deafness, Hypertension Additional Past Medical History / Comment(s): HOSPITALIZATION 11/30/19 TO 12/03/19 FOR LOW BLOOD SUGAR AND CVA., ACOUSTIC NEUROMA., [place] RESERVATION-WORSE LEFT EAR, HEART MURMUR, HX RECEIVED FROM SISTER- SHE STATES "DISORIENTED " AT TIMES, SISTER LIVES WITH HIM., Walks with a cane, frequent falls History of Any Multi-Drug Resistant Organisms: None Reported Past Surgical History: Heart Catheterization, Hernia Repair Additional Past Surgical History / Comment(s): azam detached retina, colonoscopy Past Anesthesia/Blood Transfusion Reactions: No Reported Reaction Additional Past Anesthesia/Blood Transfusion Reaction / Comm: no hx blood transfusion Smoking Status: Former smoker - Past Family History Sister(s) Family Medical History: Cancer Additional Family Medical History / Comment(s): 2 SISTERS HAD MELANOMA Father Family Medical History: Cancer Additional Family Medical History / Comment(s): MELANOMA; permanent pacemaker Brother(s) Family Medical History: Cancer Mother Family Medical History: Cancer Additional Family Medical History / Comment(s): BREAST CA Medications and Allergies Home Medications Medication Instructions Recorded Confirmed Type Omeprazole [PriLOSEC] 20 mg PO AC-BRKFST 01/19/16 05/17/20 History metFORMIN HCL 500 mg PO BID 01/19/16 05/17/20 History Cholecalciferol [Vitamin D3 (25 1,000 unit PO DAILY 10/31/17 05/17/20 History Mcg = 1000 Iu)] [place]-3 Fatty Acids/Fish Oil [Fish 1 cap PO DAILY 08/10/18 05/17/20 History Oil 1,000 mg Softgel] Vitamin E (Dl,Tocopheryl Acet) 400 unit PO DAILY 08/10/18 05/17/20 History [Vitamin E] Aspirin 325 mg PO DAILY #30 tab 12/03/19 05/17/20 Rx Insuln Asp Prt/Insulin Aspart 25 unit SQ HS #0 12/03/19 05/17/20 Rx [NovoLOG MIX 70-30 VIAL] Insuln Asp Prt/Insulin Aspart 50 unit SQ QAM #0 12/03/19 05/17/20 Rx [NovoLOG MIX 70-30 VIAL] Calcium Carbonate [Calcium] 600 mg PO DAILY 03/01/20 05/17/20 History lisinopriL [Zestril] 10 mg PO DAILY 03/01/20 05/17/20 History Atorvastatin [Lipitor] 80 mg PO DAILY #90 tab 03/03/20 05/17/20 Rx Garlic 1 each PO DAILY 05/17/20 05/17/20 History Metoprolol Tartrate [Lopressor] 25 mg PO BID 05/17/20 05/17/20 History amLODIPine [Norvasc] 10 mg PO QAM 05/17/20 05/17/20 History Allergies Allergy/AdvReac Type Severity Reaction Status Date / Time Sulfa (Sulfonamide Allergy Unknown Rash/Hives Verified 05/22/20 06:06 Antibiotics) Penicillins Allergy "passed Verified 05/22/20 06:06 out" Surgical - Exam Vital Signs Temp Pulse Resp BP Pulse Ox 97.6 F 72 16 181/85 98 05/22/20 06:30 05/22/20 06:30 05/22/20 06:30 05/22/20 06:30 05/22/20 06:30 - General well developed, well nourished, no distress - Eyes PERRL - ENT normal pinna - Neck no masses - Respiratory normal expansion - Cardiovascular Rhythm: regular - Abdomen Abdomen: soft, non tender Results - Labs 05/27/20 03:45 05/27/20 03:45 Abnormal Lab Results - Last 24 Hours (Table) 05/26/20 05/26/20 05/26/20 Range/Units 12:07 16:39 18:28 RBC (4.30-5.90) m/uL Hgb (13.0-17.5) gm/dL Hct (39.0-53.0) % ABG pH (7.35-7.45) ABG pCO2 (35-45) mmHg ABG HCO3 (21-25) mmol/L ABG Total CO2 (19-24) mmol/L ABG O2 Saturation (94-97) % Sodium (137-145) mmol/L Potassium (3.5-5.1) mmol/L BUN (9-20) mg/dL Glucose (74-99) mg/dL POC Glucose (mg/dL) 190 H 235 H 249 H (75-99) mg/dL Calcium (8.4-10.2) mg/dL Magnesium (1.6-2.3) mg/dL AST (17-59) U/L Total Protein (6.3-8.2) g/dL Albumin (3.5-5.0) g/dL 05/26/20 05/26/20 05/26/20 Range/Units 19:08 20:07 21:16 RBC (4.30-5.90) m/uL Hgb (13.0-17.5) gm/dL Hct (39.0-53.0) % ABG pH (7.35-7.45) ABG pCO2 (35-45) mmHg ABG HCO3 (21-25) mmol/L ABG Total CO2 (19-24) mmol/L ABG O2 Saturation (94-97) % Sodium (137-145) mmol/L Potassium (3.5-5.1) mmol/L BUN (9-20) mg/dL Glucose (74-99) mg/dL POC Glucose (mg/dL) 255 H 233 H 205 H (75-99) mg/dL Calcium (8.4-10.2) mg/dL Magnesium (1.6-2.3) mg/dL AST (17-59) U/L Total Protein (6.3-8.2) g/dL Albumin (3.5-5.0) g/dL 05/26/20 05/26/20 05/27/20 Range/Units 22:14 23:06 00:03 RBC (4.30-5.90) m/uL Hgb (13.0-17.5) gm/dL Hct (39.0-53.0) % ABG pH (7.35-7.45) ABG pCO2 (35-45) mmHg ABG HCO3 (21-25) mmol/L ABG Total CO2 (19-24) mmol/L ABG O2 Saturation (94-97) % Sodium (137-145) mmol/L Potassium (3.5-5.1) mmol/L BUN (9-20) mg/dL Glucose (74-99) mg/dL POC Glucose (mg/dL) 187 H 207 H 211 H (75-99) mg/dL Calcium (8.4-10.2) mg/dL Magnesium (1.6-2.3) mg/dL AST (17-59) U/L Total Protein (6.3-8.2) g/dL Albumin (3.5-5.0) g/dL 05/27/20 05/27/20 05/27/20 Range/Units 00:56 02:05 03:05 RBC (4.30-5.90) m/uL Hgb (13.0-17.5) gm/dL Hct (39.0-53.0) % ABG pH (7.35-7.45) ABG pCO2 (35-45) mmHg ABG HCO3 (21-25) mmol/L ABG Total CO2 (19-24) mmol/L ABG O2 Saturation (94-97) % Sodium (137-145) mmol/L Potassium (3.5-5.1) mmol/L BUN (9-20) mg/dL Glucose (74-99) mg/dL POC Glucose (mg/dL) 175 H 156 H 140 H (75-99) mg/dL Calcium (8.4-10.2) mg/dL Magnesium (1.6-2.3) mg/dL AST (17-59) U/L Total Protein (6.3-8.2) g/dL Albumin (3.5-5.0) g/dL 05/27/20 05/27/20 05/27/20 Range/Units 03:45 03:45 03:57 RBC 3.25 L (4.30-5.90) m/uL Hgb 9.9 L (13.0-17.5) gm/dL Hct 29.0 L (39.0-53.0) % ABG pH (7.35-7.45) ABG pCO2 (35-45) mmHg ABG HCO3 (21-25) mmol/L ABG Total CO2 (19-24) mmol/L ABG O2 Saturation (94-97) % Sodium 135 L (137-145) mmol/L Potassium 3.4 L (3.5-5.1) mmol/L BUN 27 H (9-20) mg/dL Glucose 136 H (74-99) mg/dL POC Glucose (mg/dL) 121 H (75-99) mg/dL Calcium 8.3 L (8.4-10.2) mg/dL Magnesium 2.4 H (1.6-2.3) mg/dL AST 16 L (17-59) U/L Total Protein 4.8 L (6.3-8.2) g/dL Albumin 2.5 L (3.5-5.0) g/dL 05/27/20 05/27/20 05/27/20 Range/Units 04:58 05:01 06:30 RBC (4.30-5.90) m/uL Hgb (13.0-17.5) gm/dL Hct (39.0-53.0) % ABG pH 7.57 H* (7.35-7.45) ABG pCO2 33 L (35-45) mmHg ABG HCO3 30 H (21-25) mmol/L ABG Total CO2 31 H (19-24) mmol/L ABG O2 Saturation 98.4 H (94-97) % Sodium (137-145) mmol/L Potassium (3.5-5.1) mmol/L BUN (9-20) mg/dL Glucose (74-99) mg/dL POC Glucose (mg/dL) 115 H 124 H (75-99) mg/dL Calcium (8.4-10.2) mg/dL Magnesium (1.6-2.3) mg/dL AST (17-59) U/L Total Protein (6.3-8.2) g/dL Albumin (3.5-5.0) g/dL 05/27/20 05/27/20 05/27/20 Range/Units 07:16 08:08 09:14 RBC (4.30-5.90) m/uL Hgb (13.0-17.5) gm/dL Hct (39.0-53.0) % ABG pH (7.35-7.45) ABG pCO2 (35-45) mmHg ABG HCO3 (21-25) mmol/L ABG Total CO2 (19-24) mmol/L ABG O2 Saturation (94-97) % Sodium (137-145) mmol/L Potassium (3.5-5.1) mmol/L BUN (9-20) mg/dL Glucose (74-99) mg/dL POC Glucose (mg/dL) 140 H 159 H 135 H (75-99) mg/dL Calcium (8.4-10.2) mg/dL Magnesium (1.6-2.3) mg/dL AST (17-59) U/L Total Protein (6.3-8.2) g/dL Albumin (3.5-5.0) g/dL 05/27/20 Range/Units 10:13 RBC (4.30-5.90) m/uL Hgb (13.0-17.5) gm/dL Hct (39.0-53.0) % ABG pH (7.35-7.45) ABG pCO2 (35-45) mmHg ABG HCO3 (21-25) mmol/L ABG Total CO2 (19-24) mmol/L ABG O2 Saturation (94-97) % Sodium (137-145) mmol/L Potassium (3.5-5.1) mmol/L BUN (9-20) mg/dL Glucose (74-99) mg/dL POC Glucose (mg/dL) 141 H (75-99) mg/dL Calcium (8.4-10.2) mg/dL Magnesium (1.6-2.3) mg/dL AST (17-59) U/L Total Protein (6.3-8.2) g/dL Albumin (3.5-5.0) g/dL Microbiology - Last 24 Hours (Table) 05/25/20 08:25 Urine Culture - Final Urine,Voided 05/25/20 22:00 Gram Stain - Preliminary Sputum Sputum Culture - Preliminary Diabetes panel 05/27/20 Range/Units 03:45 Sodium 135 L (137-145) mmol/L Potassium 3.4 L (3.5-5.1) mmol/L Chloride 103 (98-107) mmol/L Carbon Dioxide 29 (22-30) mmol/L BUN 27 H (9-20) mg/dL Creatinine 0.89 (0.66-1.25) mg/dL Glucose 136 H (74-99) mg/dL Calcium 8.3 L (8.4-10.2) mg/dL AST 16 L (17-59) U/L ALT 12 (4-49) U/L Alkaline Phosphatase 46 (38-126) U/L Total Protein 4.8 L (6.3-8.2) g/dL Albumin 2.5 L (3.5-5.0) g/dL Calcium panel 05/27/20 Range/Units 03:45 Calcium 8.3 L (8.4-10.2) mg/dL Albumin 2.5 L (3.5-5.0) g/dL Pituitary panel 05/27/20 Range/Units 03:45 Sodium 135 L (137-145) mmol/L Potassium 3.4 L (3.5-5.1) mmol/L Chloride 103 (98-107) mmol/L Carbon Dioxide 29 (22-30) mmol/L BUN 27 H (9-20) mg/dL Creatinine 0.89 (0.66-1.25) mg/dL Glucose 136 H (74-99) mg/dL Calcium 8.3 L (8.4-10.2) mg/dL Adrenal panel 05/27/20 Range/Units 03:45 Sodium 135 L (137-145) mmol/L Potassium 3.4 L (3.5-5.1) mmol/L Chloride 103 (98-107) mmol/L Carbon Dioxide 29 (22-30) mmol/L BUN 27 H (9-20) mg/dL Creatinine 0.89 (0.66-1.25) mg/dL Glucose 136 H (74-99) mg/dL Calcium 8.3 L (8.4-10.2) mg/dL Total Bilirubin 1.0 (0.2-1.3) mg/dL AST 16 L (17-59) U/L ALT 12 (4-49) U/L Alkaline Phosphatase 46 (38-126) U/L Total Protein 4.8 L (6.3-8.2) g/dL Albumin 2.5 L (3.5-5.0) g/dL Assessment and Plan Assessment: Respiratory failure Medication We'll perform PEG tube placement tomorrow.
[2020-05-27 11:50] LABS: Glucose,Whole Blood 145 mg/dL (75-99)
--- NOTE | 2020-05-27 12:56 | P.PN ---
Subjective Progress Note Date: 05/27/20 HISTORY OF PRESENT ILLNESS: patient is status post CABG 3. Postop day #5. Patient remains on mechanical ventilation. He is hemodynamically stable and not requiring any vasopressors. Patient is scheduled to have PEG tube placement tomorrow. PHYSICAL EXAM: VITAL SIGNS: Reviewed. GENERAL: Well-developed in no acute distress. NECK: Supple. No JVD or thyromegaly LUNGS: Respirations even and unlabored. Lungs diminished. Remains on mechanical ventilation HEART: Regular rate and rhythm. S1 and S2 heard. EXTREMITIES: Normal range of motion. No clubbing or cyanosis. Peripheral pulses intact. No lower extremity edema ASSESSMENT: 1. Unstable angina, severe 3 vessel coronary artery disease, status post three- vessel CABG 2. Recent stroke in November 2019 with continued short-term memory loss and impulsivity 3. Ischemic Cardiomyopathy with EF 45-50% 4. Hypertension 5. Hyperlipidemia 6. Insulin-dependent diabetes with preoperative hemoglobin A1c 8% 7. Asthma 8. Previous tobacco dependence with preoperative FEV1 75% of predicted 9. Family history of premature coronary artery disease with father diagnosed less than 60 years old. 10. Postoperative acute blood loss anemia and thrombocytopenia, expected PLAN: Continue postoperative management per cardiothoracic surgery Continue ventilator management per Dr. Perdomo Patient to undergo PEG tube placement tomorrow Further recommendations pending patient's course Nurse practitioner note has been reviewed by physician. Signing provider agrees with the documented findings, assessment, and plan of care. Objective - Vital Signs Vital signs: Vital Signs Temp 99.9 F H 05/27/20 12:00 Pulse 64 05/27/20 12:00 Resp 16 05/27/20 12:00 BP 127/58 05/27/20 12:00 Pulse Ox 96 05/27/20 12:00 Intake & Output 05/26/20 05/27/20 05/27/20 18:59 06:59 18:59 Intake Total 7781.628 6418.621 723.748 Output Total 445 390 585 Balance 773.606 967.621 138.748 Weight 90.9 kg 86.9 kg Intake: IV 290 240 120 LR 290 240 120 Intake, IV Titration 346.606 379.621 153.748 Amount Insulin Regular 100 unit 80.395 32.909 In Sodium Chloride 0.9% 100 ml @ Per Protocol IV .Q0M [facility] Rx#:[id number] Norepinephrine 4 mg In 156.509 119.355 Sodium Chloride 0.9% 250 ml @ 0.05 MCG/KG/MIN 16. 44 mls/hr IV .[id number] [facility] Rx#:[id number] propofoL 1,000 mg In 190.097 179.871 120.839 Empty Bag 1 bag @ Titrate IV .Q0M [facility] Rx#: [id number] Tube Feeding 512 648 270 Other 70 90 180 Output: Urine 445 390 585 Other: Voiding Method Indwelling Catheter Indwelling Catheter Indwelling Catheter ABP, PAP, CO, CI - Last Documented Arterial Blood Pressure 134/43 Pulmonary Artery Pressure 32/15 Cardiac Output 4.4 Cardiac Index 2.2 - Labs CBC & Chem 7: 05/27/20 03:45 05/27/20 11:45 Labs: Abnormal Lab Results - Last 24 Hours (Table) 05/26/20 05/26/20 05/26/20 Range/Units 16:39 18:28 19:08 RBC (4.30-5.90) m/uL Hgb (13.0-17.5) gm/dL Hct (39.0-53.0) % ABG pH (7.35-7.45) ABG pCO2 (35-45) mmHg ABG HCO3 (21-25) mmol/L ABG Total CO2 (19-24) mmol/L ABG O2 Saturation (94-97) % Sodium (137-145) mmol/L Potassium (3.5-5.1) mmol/L BUN (9-20) mg/dL Glucose (74-99) mg/dL POC Glucose (mg/dL) 235 H 249 H 255 H (75-99) mg/dL Calcium (8.4-10.2) mg/dL Magnesium (1.6-2.3) mg/dL AST (17-59) U/L Total Protein (6.3-8.2) g/dL Albumin (3.5-5.0) g/dL 05/26/20 05/26/20 05/26/20 Range/Units 20:07 21:16 22:14 RBC (4.30-5.90) m/uL Hgb (13.0-17.5) gm/dL Hct (39.0-53.0) % ABG pH (7.35-7.45) ABG pCO2 (35-45) mmHg ABG HCO3 (21-25) mmol/L ABG Total CO2 (19-24) mmol/L ABG O2 Saturation (94-97) % Sodium (137-145) mmol/L Potassium (3.5-5.1) mmol/L BUN (9-20) mg/dL Glucose (74-99) mg/dL POC Glucose (mg/dL) 233 H 205 H 187 H (75-99) mg/dL Calcium (8.4-10.2) mg/dL Magnesium (1.6-2.3) mg/dL AST (17-59) U/L Total Protein (6.3-8.2) g/dL Albumin (3.5-5.0) g/dL 05/26/20 05/27/20 05/27/20 Range/Units 23:06 00:03 00:56 RBC (4.30-5.90) m/uL Hgb (13.0-17.5) gm/dL Hct (39.0-53.0) % ABG pH (7.35-7.45) ABG pCO2 (35-45) mmHg ABG HCO3 (21-25) mmol/L ABG Total CO2 (19-24) mmol/L ABG O2 Saturation (94-97) % Sodium (137-145) mmol/L Potassium (3.5-5.1) mmol/L BUN (9-20) mg/dL Glucose (74-99) mg/dL POC Glucose (mg/dL) 207 H 211 H 175 H (75-99) mg/dL Calcium (8.4-10.2) mg/dL Magnesium (1.6-2.3) mg/dL AST (17-59) U/L Total Protein (6.3-8.2) g/dL Albumin (3.5-5.0) g/dL 05/27/20 05/27/20 05/27/20 Range/Units 02:05 03:05 03:45 RBC 3.25 L (4.30-5.90) m/uL Hgb 9.9 L (13.0-17.5) gm/dL Hct 29.0 L (39.0-53.0) % ABG pH (7.35-7.45) ABG pCO2 (35-45) mmHg ABG HCO3 (21-25) mmol/L ABG Total CO2 (19-24) mmol/L ABG O2 Saturation (94-97) % Sodium (137-145) mmol/L Potassium (3.5-5.1) mmol/L BUN (9-20) mg/dL Glucose (74-99) mg/dL POC Glucose (mg/dL) 156 H 140 H (75-99) mg/dL Calcium (8.4-10.2) mg/dL Magnesium (1.6-2.3) mg/dL AST (17-59) U/L Total Protein (6.3-8.2) g/dL Albumin (3.5-5.0) g/dL 05/27/20 05/27/20 05/27/20 Range/Units 03:45 03:57 04:58 RBC (4.30-5.90) m/uL Hgb (13.0-17.5) gm/dL Hct (39.0-53.0) % ABG pH 7.57 H* (7.35-7.45) ABG pCO2 33 L (35-45) mmHg ABG HCO3 30 H (21-25) mmol/L ABG Total CO2 31 H (19-24) mmol/L ABG O2 Saturation 98.4 H (94-97) % Sodium 135 L (137-145) mmol/L Potassium 3.4 L (3.5-5.1) mmol/L BUN 27 H (9-20) mg/dL Glucose 136 H (74-99) mg/dL POC Glucose (mg/dL) 121 H (75-99) mg/dL Calcium 8.3 L (8.4-10.2) mg/dL Magnesium 2.4 H (1.6-2.3) mg/dL AST 16 L (17-59) U/L Total Protein 4.8 L (6.3-8.2) g/dL Albumin 2.5 L (3.5-5.0) g/dL 05/27/20 05/27/20 05/27/20 Range/Units 05:01 06:30 07:16 RBC (4.30-5.90) m/uL Hgb (13.0-17.5) gm/dL Hct (39.0-53.0) % ABG pH (7.35-7.45) ABG pCO2 (35-45) mmHg ABG HCO3 (21-25) mmol/L ABG Total CO2 (19-24) mmol/L ABG O2 Saturation (94-97) % Sodium (137-145) mmol/L Potassium (3.5-5.1) mmol/L BUN (9-20) mg/dL Glucose (74-99) mg/dL POC Glucose (mg/dL) 115 H 124 H 140 H (75-99) mg/dL Calcium (8.4-10.2) mg/dL Magnesium (1.6-2.3) mg/dL AST (17-59) U/L Total Protein (6.3-8.2) g/dL Albumin (3.5-5.0) g/dL 05/27/20 05/27/20 05/27/20 Range/Units 08:08 09:14 10:13 RBC (4.30-5.90) m/uL Hgb (13.0-17.5) gm/dL Hct (39.0-53.0) % ABG pH (7.35-7.45) ABG pCO2 (35-45) mmHg ABG HCO3 (21-25) mmol/L ABG Total CO2 (19-24) mmol/L ABG O2 Saturation (94-97) % Sodium (137-145) mmol/L Potassium (3.5-5.1) mmol/L BUN (9-20) mg/dL Glucose (74-99) mg/dL POC Glucose (mg/dL) 159 H 135 H 141 H (75-99) mg/dL Calcium (8.4-10.2) mg/dL Magnesium (1.6-2.3) mg/dL AST (17-59) U/L Total Protein (6.3-8.2) g/dL Albumin (3.5-5.0) g/dL 05/27/20 Range/Units 11:48 RBC (4.30-5.90) m/uL Hgb (13.0-17.5) gm/dL Hct (39.0-53.0) % ABG pH (7.35-7.45) ABG pCO2 (35-45) mmHg ABG HCO3 (21-25) mmol/L ABG Total CO2 (19-24) mmol/L ABG O2 Saturation (94-97) % Sodium (137-145) mmol/L Potassium (3.5-5.1) mmol/L BUN (9-20) mg/dL Glucose (74-99) mg/dL POC Glucose (mg/dL) 145 H (75-99) mg/dL Calcium (8.4-10.2) mg/dL Magnesium (1.6-2.3) mg/dL AST (17-59) U/L Total Protein (6.3-8.2) g/dL Albumin (3.5-5.0) g/dL Microbiology - Last 24 Hours (Table) 05/26/20 09:53 Blood Culture - Preliminary Blood No Growth after 24 hours 05/25/20 08:25 Urine Culture - Final Urine,Voided 05/25/20 22:00 Gram Stain - Preliminary Sputum Sputum Culture - Preliminary
[2020-05-27 14:02] LABS: Glucose,Whole Blood 130 mg/dL (75-99)
[2020-05-27 16:04] LABS: Glucose,Whole Blood 120 mg/dL (75-99)
--- NOTE | 2020-05-27 16:41 | P.PN ---
Subjective Progress Note Date: 05/27/20 Principal diagnosis: CABG s/p Triple vessel CAD This patient was cared for during of fentanyl and states the cleared state of emergency secondary to COVID 19. Covering for Dr. Tafoya over the weekend. On 05/27/2020- Mr. Perez, is a 74-year-old male with a past medical history of asthma, CVA/TIA, diabetes mellitus, GERD, hypertension admitted to the hospital for unstable angina. Then patient was found to have triple-vessel disease and he had Coronary artery bypass grafting - postoperative day 5 today. Patient had postoperative acute blood loss anemia and thrombocytopenia. Last night patient became restless and hypoxemic and he required reintubation. Currently patient remains intubated on mechanical ventilation. His morning ABGs showed pH of 7.57, pCO2 33, pO2 86. He is sedated and on an insulin drip. Review of systems could not be done as the patient is intubated and sedated. Active Medications Generic Name Dose Route Start Last Admin Trade Name Freq PRN Reason Stop Dose Admin Acetaminophen 650 mg 05/23/20 08:27 05/26/20 22:17 Acetaminophen Tab 325 Mg Tab PO 650 mg Q4HR PRN Administration Fever and/ or Pain Albuterol/Ipratropium 3 ml 05/22/20 13:32 Ipratropium-Albuterol 3 Ml Neb INHALATION RT-Q2H PRN Shortness Of Breath Or Wheezing Albuterol/Ipratropium 3 ml 05/26/20 12:00 05/27/20 15:53 Ipratropium-Albuterol 3 Ml Neb INHALATION 3 ml RT-Q4H LIYA Administration Aspirin 325 mg 05/24/20 13:00 05/27/20 08:04 Aspirin 325 Mg Tab NG-TUBE 325 mg DAILY LIYA Administration Atorvastatin Calcium 40 mg 05/23/20 09:00 05/27/20 08:04 Atorvastatin 40 Mg Tab PO 40 mg DAILY LIYA Administration Benzocaine/Menthol 1 each 05/22/20 13:32 Benzocaine/Menthol Lozeng 1 Each Lozenge MUCOUS MEM Q2H PRN Sore Throat Bisacodyl 10 mg 05/27/20 08:28 Bisacodyl 10 Mg Supp RECTAL DAILY PRN Constipation Chlorhexidine Gluconate 15 ml 05/25/20 22:30 05/27/20 08:04 Chlorhexidine Gluconate 15 Ml Cup MUCOUS MEM 15 ml BID LIYA Administration Clopidogrel Bisulfate 75 mg 05/23/20 09:00 05/27/20 08:04 Clopidogrel 75 Mg Tab PO 75 mg DAILY LIYA Administration Heparin Sodium (Porcine) 5,000 unit 05/22/20 21:00 05/27/20 14:00 Heparin Sodium,Porcine 5,000 Unit/Ml 1 Ml Vial SQ 5,000 unit Q8H LIYA Administration Amiodarone HCl 150 mg/ 103 mls @ 618 mls/hr 05/22/20 13:32 Dextrose/Water IV .Q10M PRN A.FIB/FLUTTER Protocol Calcium Gluconate 2 gm/ Sodium 120 mls @ 100 mls/hr 05/22/20 13:32 Chloride IVPB 06/21/20 13:33 ONCE PRN Ionized Calcium less than 4.4 Lactated Ringer's 1,000 mls @ 20 mls/hr 05/23/20 14:35 05/26/20 17:32 Lactated Ringers IV Not Given .Q24H LIYA Propofol 1,000 mg/ IV Solution 100 mls @ 0 mls/hr 05/25/20 22:15 05/27/20 15:30 IV 20 mcg/kg/min .Q0M LIYA 10.428 mls/hr Titration Protocol Titrate Norepinephrine Bitartrate 4 mg 254 mls @ 16.44 mls/hr 05/25/20 22:45 05/27/20 06:34 / Sodium Chloride IV 0 mcg/kg/min .[id number] LIYA 0 mls/hr Titration Protocol 0.05 MCG/KG/MIN Insulin Human Regular 100 unit 101 mls @ 0 mls/hr 05/26/20 17:45 05/27/20 16:04 / Sodium Chloride IV 5.5 units/hr .Q0M LIYA 5.555 mls/hr Titration Protocol Per Protocol Insulin Detemir 10 unit 05/23/20 09:15 05/27/20 08:04 Insulin Detemir (Levemir) 100 Unit/Ml Syr SQ 10 unit DAILY@0700 LIYA Administration Insulin Human Regular 9.1 unit 05/26/20 17:28 Insulin Regular Bolus (From Drip Bag) 0.1 unit/kg (9.1 unit) 06/02/20 23:00 IV ONCE PRN Blood Sugar - High Magnesium Hydroxide 2,400 mg 05/23/20 09:00 Magnesium Hydroxide 2,400 Mg/10 Ml Cup PO BID PRN Constipation Metoclopramide HCl 10 mg 05/22/20 13:32 05/23/20 00:47 Metoclopramide 5 Mg/Ml 2 Ml Vial IVP 10 mg Q4H PRN Administration Nausea And Vomiting Metoprolol Tartrate 25 mg 05/24/20 21:00 05/27/20 08:04 Metoprolol Tartrate 25 Mg Tab NG-TUBE 25 mg BID LIYA Administration Miscellaneous Information 1 each 05/22/20 13:32 Potassium Replacement Protocol 1 Each Misc MISCELLANE DAILY PRN Per Protocol Protocol Miscellaneous Information 1 each 05/22/20 13:32 Magnesium Replacement Protocol 1 Each Misc MISCELLANE DAILY PRN Per Protocol Protocol Miscellaneous Information 1 each 05/22/20 13:32 Phosphorus Replacement Protoco 1 Each Misc MISCELLANE DAILY PRN Per Protocol Protocol Ondansetron HCl 4 mg 05/22/20 13:32 05/22/20 21:52 Ondansetron 4 Mg/2 Ml Vial IVP 4 mg Q6HR PRN Administration Nausea And Vomiting Pantoprazole Sodium 40 mg 05/24/20 09:00 05/27/20 08:03 Pantoprazole 40 Mg/10 Ml Vial IVP 40 mg DAILY LIYA Administration Polyethylene Glycol 17 gm 05/25/20 09:00 05/27/20 08:04 Polyethylene Glycol 3350 17 Gm Powd.Pack PO 17 gm DAILY LIYA Administration Quetiapine Fumarate 50 mg 05/24/20 21:00 05/27/20 08:04 Quetiapine 50 Mg Tab PO 50 mg BID LIYA Administration Senna/Docusate Sodium 2 each 05/23/20 21:00 05/26/20 20:22 Sennosides-Docusate Sodium 1 Each Tab PO 2 each HS LIYA Administration Sodium Chloride 10 ml 05/22/20 21:00 05/27/20 09:12 Sodium Chloride 0.9% Flush 10 Ml Syringe IV 10 ml BID LIYA Administration Objective - Vital Signs Vital signs: Vital Signs Temp 99.9 F H 05/27/20 12:00 Pulse 69 05/27/20 16:00 Resp 20 05/27/20 14:00 BP 137/62 05/27/20 14:00 Pulse Ox 96 05/27/20 14:00 Intake & Output 05/26/20 05/27/20 05/27/20 18:59 06:59 18:59 Intake Total 4160.047 0868.621 933.099 Output Total 445 390 835 Balance 773.606 967.621 98.099 Weight 90.9 kg 86.9 kg Intake: IV 290 240 160 LR 290 240 160 Intake, IV Titration 346.606 379.621 215.099 Amount Insulin Regular 100 unit 80.395 59.674 In Sodium Chloride 0.9% 100 ml @ Per Protocol IV .Q0M LIYA Rx#:[id number] Norepinephrine 4 mg In 156.509 119.355 Sodium Chloride 0.9% 250 ml @ 0.05 MCG/KG/MIN 16. 44 mls/hr IV .[id number] LIYA Rx#:[id number] propofoL 1,000 mg In 190.097 179.871 155.425 Empty Bag 1 bag @ Titrate IV .Q0M LIYA Rx#: [id number] Tube Feeding 512 648 378 Other 70 90 180 Output: Urine 445 390 835 Other: Voiding Method Indwelling Catheter Indwelling Catheter Indwelling Catheter # Bowel Movements 1 ABP, PAP, CO, CI - Last Documented Arterial Blood Pressure 132/47 Pulmonary Artery Pressure 32/15 Cardiac Output 4.4 Cardiac Index 2.2 - Exam General: sedated and intubated on mechanical ventilation Eyes: PERRL, EOMI, conjunctiva normal HENT: normocephalic, atraumatic, OG tube present. Neck: supple, no JVD Lungs: normal respiratory effort, scattered rhonchi, bibasilar crackles CVS: Regular rate and rhythm, no murmur. Peripheral pulses 2+ Abdomen: soft, nondistended, no organomegaly Skin: warm and dry. Neuro: sedated. - Labs CBC & Chem 7: 05/27/20 03:45 05/27/20 11:45 Labs: Abnormal Lab Results - Last 24 Hours (Table) 05/26/20 05/26/20 05/26/20 Range/Units 16:39 18:28 19:08 RBC (4.30-5.90) m/uL Hgb (13.0-17.5) gm/dL Hct (39.0-53.0) % ABG pH (7.35-7.45) ABG pCO2 (35-45) mmHg ABG HCO3 (21-25) mmol/L ABG Total CO2 (19-24) mmol/L ABG O2 Saturation (94-97) % Sodium (137-145) mmol/L Potassium (3.5-5.1) mmol/L BUN (9-20) mg/dL Glucose (74-99) mg/dL POC Glucose (mg/dL) 235 H 249 H 255 H (75-99) mg/dL Calcium (8.4-10.2) mg/dL Magnesium (1.6-2.3) mg/dL AST (17-59) U/L Total Protein (6.3-8.2) g/dL Albumin (3.5-5.0) g/dL 05/26/20 05/26/20 05/26/20 Range/Units 20:07 21:16 22:14 RBC (4.30-5.90) m/uL Hgb (13.0-17.5) gm/dL Hct (39.0-53.0) % ABG pH (7.35-7.45) ABG pCO2 (35-45) mmHg ABG HCO3 (21-25) mmol/L ABG Total CO2 (19-24) mmol/L ABG O2 Saturation (94-97) % Sodium (137-145) mmol/L Potassium (3.5-5.1) mmol/L BUN (9-20) mg/dL Glucose (74-99) mg/dL POC Glucose (mg/dL) 233 H 205 H 187 H (75-99) mg/dL Calcium (8.4-10.2) mg/dL Magnesium (1.6-2.3) mg/dL AST (17-59) U/L Total Protein (6.3-8.2) g/dL Albumin (3.5-5.0) g/dL 05/26/20 05/27/20 05/27/20 Range/Units 23:06 00:03 00:56 RBC (4.30-5.90) m/uL Hgb (13.0-17.5) gm/dL Hct (39.0-53.0) % ABG pH (7.35-7.45) ABG pCO2 (35-45) mmHg ABG HCO3 (21-25) mmol/L ABG Total CO2 (19-24) mmol/L ABG O2 Saturation (94-97) % Sodium (137-145) mmol/L Potassium (3.5-5.1) mmol/L BUN (9-20) mg/dL Glucose (74-99) mg/dL POC Glucose (mg/dL) 207 H 211 H 175 H (75-99) mg/dL Calcium (8.4-10.2) mg/dL Magnesium (1.6-2.3) mg/dL AST (17-59) U/L Total Protein (6.3-8.2) g/dL Albumin (3.5-5.0) g/dL 05/27/20 05/27/20 05/27/20 Range/Units 02:05 03:05 03:45 RBC 3.25 L (4.30-5.90) m/uL Hgb 9.9 L (13.0-17.5) gm/dL Hct 29.0 L (39.0-53.0) % ABG pH (7.35-7.45) ABG pCO2 (35-45) mmHg ABG HCO3 (21-25) mmol/L ABG Total CO2 (19-24) mmol/L ABG O2 Saturation (94-97) % Sodium (137-145) mmol/L Potassium (3.5-5.1) mmol/L BUN (9-20) mg/dL Glucose (74-99) mg/dL POC Glucose (mg/dL) 156 H 140 H (75-99) mg/dL Calcium (8.4-10.2) mg/dL Magnesium (1.6-2.3) mg/dL AST (17-59) U/L Total Protein (6.3-8.2) g/dL Albumin (3.5-5.0) g/dL 05/27/20 05/27/20 05/27/20 Range/Units 03:45 03:57 04:58 RBC (4.30-5.90) m/uL Hgb (13.0-17.5) gm/dL Hct (39.0-53.0) % ABG pH 7.57 H* (7.35-7.45) ABG pCO2 33 L (35-45) mmHg ABG HCO3 30 H (21-25) mmol/L ABG Total CO2 31 H (19-24) mmol/L ABG O2 Saturation 98.4 H (94-97) % Sodium 135 L (137-145) mmol/L Potassium 3.4 L (3.5-5.1) mmol/L BUN 27 H (9-20) mg/dL Glucose 136 H (74-99) mg/dL POC Glucose (mg/dL) 121 H (75-99) mg/dL Calcium 8.3 L (8.4-10.2) mg/dL Magnesium 2.4 H (1.6-2.3) mg/dL AST 16 L (17-59) U/L Total Protein 4.8 L (6.3-8.2) g/dL Albumin 2.5 L (3.5-5.0) g/dL 05/27/20 05/27/20 05/27/20 Range/Units 05:01 06:30 07:16 RBC (4.30-5.90) m/uL Hgb (13.0-17.5) gm/dL Hct (39.0-53.0) % ABG pH (7.35-7.45) ABG pCO2 (35-45) mmHg ABG HCO3 (21-25) mmol/L ABG Total CO2 (19-24) mmol/L ABG O2 Saturation (94-97) % Sodium (137-145) mmol/L Potassium (3.5-5.1) mmol/L BUN (9-20) mg/dL Glucose (74-99) mg/dL POC Glucose (mg/dL) 115 H 124 H 140 H (75-99) mg/dL Calcium (8.4-10.2) mg/dL Magnesium (1.6-2.3) mg/dL AST (17-59) U/L Total Protein (6.3-8.2) g/dL Albumin (3.5-5.0) g/dL 05/27/20 05/27/20 05/27/20 Range/Units 08:08 09:14 10:13 RBC (4.30-5.90) m/uL Hgb (13.0-17.5) gm/dL Hct (39.0-53.0) % ABG pH (7.35-7.45) ABG pCO2 (35-45) mmHg ABG HCO3 (21-25) mmol/L ABG Total CO2 (19-24) mmol/L ABG O2 Saturation (94-97) % Sodium (137-145) mmol/L Potassium (3.5-5.1) mmol/L BUN (9-20) mg/dL Glucose (74-99) mg/dL POC Glucose (mg/dL) 159 H 135 H 141 H (75-99) mg/dL Calcium (8.4-10.2) mg/dL Magnesium (1.6-2.3) mg/dL AST (17-59) U/L Total Protein (6.3-8.2) g/dL Albumin (3.5-5.0) g/dL 05/27/20 05/27/20 05/27/20 Range/Units 11:48 14:01 16:03 RBC (4.30-5.90) m/uL Hgb (13.0-17.5) gm/dL Hct (39.0-53.0) % ABG pH (7.35-7.45) ABG pCO2 (35-45) mmHg ABG HCO3 (21-25) mmol/L ABG Total CO2 (19-24) mmol/L ABG O2 Saturation (94-97) % Sodium (137-145) mmol/L Potassium (3.5-5.1) mmol/L BUN (9-20) mg/dL Glucose (74-99) mg/dL POC Glucose (mg/dL) 145 H 130 H 120 H (75-99) mg/dL Calcium (8.4-10.2) mg/dL Magnesium (1.6-2.3) mg/dL AST (17-59) U/L Total Protein (6.3-8.2) g/dL Albumin (3.5-5.0) g/dL Microbiology - Last 24 Hours (Table) 05/26/20 09:53 Blood Culture - Preliminary Blood No Growth after 24 hours 05/25/20 08:25 Urine Culture - Final Urine,Voided Assessment and Plan Assessment: ASSESSMENT CABG status post triple vessel coronary artery disease. 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 On reviewing the labs hemoglobin is stable at 9.9. Patient's electrolytes within normal limits. Surgical service has been consulted for possible PEG tube placement. Postop management as per CT surgery and ventilation management as per pulmonary. Continue with the rest of his current medication regimen. Overall prognosis is guarded. Further recommendations to follow depending on the progress of the patient.
[2020-05-27] MEDS: ACETAMINOPHEN TAB 325 MG TAB PO PRN (16:56)
[2020-05-27 17:58] LABS: Glucose,Whole Blood 142 mg/dL (75-99)
[2020-05-27] MEDS: LACTATED RINGERS 1,000 ML IV SCH (20:23)
[2020-05-27] MEDS: SENNOSIDES-DOCUSATE SODIUM 1 EACH TAB PO SCH (20:23)
[2020-05-27 21:09] LABS: Glucose,Whole Blood 135 mg/dL (75-99)
[2020-05-27 22:12] LABS: Glucose,Whole Blood 175 mg/dL (75-99)
[2020-05-28 00:16] LABS: Glucose,Whole Blood 219 mg/dL (75-99)
[2020-05-28 02:18] LABS: Glucose,Whole Blood 245 mg/dL (75-99)
[2020-05-28 03:00] LABS: Glucose,Whole Blood 233 mg/dL (75-99)
[2020-05-28] MEDS: IPRATROPIUM-ALBUTEROL 3 ML NEB INHALATION SCH ×5 (03:54→19:36)
[2020-05-28 04:10] LABS: Glucose,Whole Blood 212 mg/dL (75-99)
[2020-05-28 04:44] LABS: Basophils % (A) 1 %; Eosinophils # (A) 0.2 k/uL (0-0.7); Eosinophils % (A) 2 %; HCT 28.4 % (39.0-53.0); HGB 9.4 gm/dL (13.0-17.5); Lymphocytes # (A) 1.3 k/uL (1.0-4.8); Lymphocytes % (A) 17 %; MCH 29.6 pg (25.0-35.0); MCHC 33.3 g/dL (31.0-37.0); Mean Platelet Volume 8.8; Monocytes # (A) 0.4 k/uL (0-1.0); Monocytes % (A) 5 %; Neutrophils # (A) 5.8 k/uL (1.3-7.7); Neutrophils % (A) 75 %; Platelet Count 241 k/uL (150-450); RBC 3.19 m/uL (4.30-5.90); RDW 13.9 % (11.5-15.5); WBC 7.8 k/uL (3.8-10.6)
[2020-05-28 04:59] LABS: ALT 12 U/L (4-49); AST 28 U/L (17-59); African American GFR (CKD) >90 (>60 ml/min/1.73 sqM); Albumin 2.4 g/dL (3.5-5.0); Alkaline Phosphatase 44 U/L (38-126); Anion Gap 3 mmol/L; Blood Urea Nitrogen 20 mg/dL (9-20); Calcium 8.1 mg/dL (8.4-10.2); Carbon Dioxide 29 mmol/L (22-30); Chloride 103 mmol/L (98-107); Glucose 195 mg/dL (74-99); Non-African American GFR(CKD) >90 (>60 ml/min/1.73 sqM); Potassium 3.8 mmol/L (3.5-5.1); Sodium 135 mmol/L (137-145); Total Bilirubin 0.7 mg/dL (0.2-1.3); Total Protein 4.7 g/dL (6.3-8.2)
[2020-05-28 05:34] LABS: ABG HCO3 31 mmol/L (21-25); ABG Oxygen Saturation 95.4 % (94-97); ABG PCO2 37 mmHg (35-45); ABG PH 7.53 (7.35-7.45); ABG PO2 71 mmHg (83-108); ABG TCO2 32 mmol/L (19-24); Allen Test Performed? Yes
[2020-05-28 05:56] LABS: Glucose,Whole Blood 182 mg/dL (75-99)
[2020-05-28] MEDS: INSULIN DETEMIR (LEVEMIR) 100 UNIT/ML SYR SQ SCH (06:36)
[2020-05-28] MEDS: HEPARIN SODIUM,PORCINE 5,000 UNIT/ML 1 ML VIAL SQ SCH ×3 (06:37→20:23)
[2020-05-28] MEDS ORDERED: POTASSIUM BICARBONATE/CIT AC 20 MEQ TABLET.EFF NG-TUBE SCH (07:00)
--- NOTE | 2020-05-28 07:47 | XR ---
EXAMINATION TYPE: XR chest 1V portable DATE OF EXAM: 05/28/2020 Comparison: 05/27/2020 Clinical History: 74-year-old male Tube placement Findings: ET tube satisfactory. Dobbhoff tube remains below the diaphragm with tip directed towards the left li chang within the mid body. Heart upper limits of normal in size. Focal retrocardiac and left basilar o pacity remains. Some new strandy atelectasis of the right base. Impression: Prominent retrocardiac and left basilar airspace disease remains. Possible underlying effusion.
[2020-05-28 08:05] LABS: Glucose,Whole Blood 168 mg/dL (75-99)
[2020-05-28] MEDS ORDERED: FUROSEMIDE 10 MG/ML 4 ML VIAL IV STA (08:22)
[2020-05-28] MEDS ORDERED: POTASSIUM BICARBONATE/CIT AC 20 MEQ TABLET.EFF PO ONE (08:30)
--- NOTE | 2020-05-28 08:49 | P.PN ---
Subjective Progress Note Date: 05/28/20 Principal diagnosis: Unstable angina, severe calcific 3 vessel coronary artery disease. Previous medical history of recent stroke in November 2019 with continued short-term memory loss and impulsivity, cardiomyopathy with EF 45-50%, hypertension, hyperlipidemia, insulin-dependent diabetes with preoperative hemoglobin A1c 8%, asthma, previous tobacco dependence with preoperative FEV1 75% of predicted, and family history of premature coronary artery disease with father diagnosed less than 60 years old. POD #6 coronary artery bypass grafting 3 with the left internal mammary artery to the left anterior descending artery, reverse saphenous vein graft off the aorta to the first obtuse marginal artery and the posterior descending artery with endoscopic vein harvesting of the left lower extremity greater saphenous vein, clip ligation of the left atrial appendage with a 35 mm AtriClip and intraoperative transesophageal echocardiogram. Postoperative acute blood loss anemia and thrombocytopenia, expected outcomes given hemodilution and cardiopulmonary bypass pump Acute hypoxic respiratory failure requiring re-intubation, unexpected, unknown cause The patient is currently laying in bed mechanically ventilated and sedated in the intensive care unit. Remains in sinus rhythm, hemodynamically stable. TF on hold for PEG tube placement today. Patient did spike fever 101F yesterday, WBC 7.8, urine culture negative, blood culture preliminarily negative, sputum culture pending, gram stain preliminarily rare gram positive cocci. Patient does open eyes and withdraws to painful stimulation bilaterally. Objective - Vital Signs Vital signs: Vital Signs Temp 100 F H 05/28/20 04:00 Pulse 69 05/28/20 07:38 Resp 20 05/28/20 07:00 BP 122/58 05/28/20 07:00 Pulse Ox 97 05/28/20 07:00 Intake & Output 05/27/20 05/28/20 05/28/20 18:59 06:59 18:59 Intake Total 1294.037 459.373 77 Output Total 1295 515 40 Balance -0.963 -55.627 37 Intake: IV 240 240 20 LR 240 240 20 Intake, IV Titration 250.037 165.373 57 Amount Insulin Regular 100 unit 70.136 36.240 57 In Sodium Chloride 0.9% 100 ml @ Per Protocol IV .Q0M LIYA Rx#:[id number] propofoL 1,000 mg In 179.901 129.133 Empty Bag 1 bag @ Titrate IV .Q0M LIYA Rx#: [id number] Tube Feeding 594 54 Other 210 Output: Urine 1295 515 40 Other: Voiding Method Indwelling Catheter Indwelling Catheter # Bowel Movements 1 ABP, PAP, CO, CI - Last Documented Arterial Blood Pressure 120/48 Pulmonary Artery Pressure 32/15 Cardiac Output 4.4 Cardiac Index 2.2 - Constitutional General appearance: Present: no acute distress - Respiratory Details: Lungs sounds diminished bilaterally. Respirations even, nonlabored on mechanical ventilation. Current vent settings FiO2 25%, TV 450, RR 20, PEEP 5. ABGs this AM on those settings 7.53/37/71/31/95%/8.0, RR lowered to 16. 8.0 ETT present, 22 @ the lip. - Cardiovascular Details: S1, S2 present. Regular rate and rhythm, sinus rhythm on telemetry with heart rate in the 60s. Sternum stable. Ventricular epicardial pacemaker wire present, connected to generator, VVI mode with backup rate 50 bpm. Left radial arterial line present. Palpable peripheral pulses bilaterally. No edema present. Heart hugger in place, antiembolism stockings, SCDs present. - Gastrointestinal Gastrointestinal Comment(s): Abdomen soft, nontender, nondistended. Active bowel sounds present [address] with tube feeding on hold for PEG placement today. Positive BM 05/26/20 per nursing - Genitourinary Genitourinary Comment(s): Hearn present draining clear yellow urine. Output 30-60 mL per hour overnight, 1 liter diuresis after IV lasix given yesterday, 1810 mL in the last 24 hours - Integumentary Integumentary Comment(s): Skin is warm and dry. Anterior chest incision well approximated, small amount serous drainage present, no purulent drainage. Left lower extremity EVH site we ll approximated without redness or drainage. - Neurologic Neurologic Comment(s): sedated on mechanical ventilation, opens eyes, withdraws to painful stimuli, PERRLA 3 mm - Psychiatric Psychiatric Comment(s): currently sedated with propofol - Allied health notes Allied health notes reviewed: nursing - Labs CBC & Chem 7: 05/28/20 04:30 05/28/20 04:30 Labs: Abnormal Lab Results - Last 24 Hours (Table) 05/27/20 05/27/20 05/27/20 Range/Units 09:14 10:13 11:48 RBC (4.30-5.90) m/uL Hgb (13.0-17.5) gm/dL Hct (39.0-53.0) % ABG pH (7.35-7.45) ABG pO2 (83-108) mmHg ABG HCO3 (21-25) mmol/L ABG Total CO2 (19-24) mmol/L Sodium (137-145) mmol/L Glucose (74-99) mg/dL POC Glucose (mg/dL) 135 H 141 H 145 H (75-99) mg/dL Calcium (8.4-10.2) mg/dL Total Protein (6.3-8.2) g/dL Albumin (3.5-5.0) g/dL 05/27/20 05/27/20 05/27/20 Range/Units 14:01 16:03 17:57 RBC (4.30-5.90) m/uL Hgb (13.0-17.5) gm/dL Hct (39.0-53.0) % ABG pH (7.35-7.45) ABG pO2 (83-108) mmHg ABG HCO3 (21-25) mmol/L ABG Total CO2 (19-24) mmol/L Sodium (137-145) mmol/L Glucose (74-99) mg/dL POC Glucose (mg/dL) 130 H 120 H 142 H (75-99) mg/dL Calcium (8.4-10.2) mg/dL Total Protein (6.3-8.2) g/dL Albumin (3.5-5.0) g/dL 05/27/20 05/27/20 05/28/20 Range/Units 21:07 22:10 00:14 RBC (4.30-5.90) m/uL Hgb (13.0-17.5) gm/dL Hct (39.0-53.0) % ABG pH (7.35-7.45) ABG pO2 (83-108) mmHg ABG HCO3 (21-25) mmol/L ABG Total CO2 (19-24) mmol/L Sodium (137-145) mmol/L Glucose (74-99) mg/dL POC Glucose (mg/dL) 135 H 175 H 219 H (75-99) mg/dL Calcium (8.4-10.2) mg/dL Total Protein (6.3-8.2) g/dL Albumin (3.5-5.0) g/dL 05/28/20 05/28/20 05/28/20 Range/Units 02:17 02:59 04:09 RBC (4.30-5.90) m/uL Hgb (13.0-17.5) gm/dL Hct (39.0-53.0) % ABG pH (7.35-7.45) ABG pO2 (83-108) mmHg ABG HCO3 (21-25) mmol/L ABG Total CO2 (19-24) mmol/L Sodium (137-145) mmol/L Glucose (74-99) mg/dL POC Glucose (mg/dL) 245 H 233 H 212 H (75-99) mg/dL Calcium (8.4-10.2) mg/dL Total Protein (6.3-8.2) g/dL Albumin (3.5-5.0) g/dL 05/28/20 05/28/20 05/28/20 Range/Units 04:30 04:30 05:30 RBC 3.19 L (4.30-5.90) m/uL Hgb 9.4 L (13.0-17.5) gm/dL Hct 28.4 L (39.0-53.0) % ABG pH 7.53 H (7.35-7.45) ABG pO2 71 L (83-108) mmHg ABG HCO3 31 H (21-25) mmol/L ABG Total CO2 32 H (19-24) mmol/L Sodium 135 L (137-145) mmol/L Glucose 195 H (74-99) mg/dL POC Glucose (mg/dL) (75-99) mg/dL Calcium 8.1 L (8.4-10.2) mg/dL Total Protein 4.7 L (6.3-8.2) g/dL Albumin 2.4 L (3.5-5.0) g/dL 05/28/20 05/28/20 Range/Units 05:55 08:03 RBC (4.30-5.90) m/uL Hgb (13.0-17.5) gm/dL Hct (39.0-53.0) % ABG pH (7.35-7.45) ABG pO2 (83-108) mmHg ABG HCO3 (21-25) mmol/L ABG Total CO2 (19-24) mmol/L Sodium (137-145) mmol/L Glucose (74-99) mg/dL POC Glucose (mg/dL) 182 H 168 H (75-99) mg/dL Calcium (8.4-10.2) mg/dL Total Protein (6.3-8.2) g/dL Albumin (3.5-5.0) g/dL Microbiology - Last 24 Hours (Table) 05/26/20 09:53 Blood Culture - Preliminary Blood No Growth after 24 hours - Imaging and Cardiology Chest x-ray: report reviewed, image reviewed Assessment and Plan Assessment: 1. Unstable angina, severe calcific 3 vessel coronary artery disease, status post three-vessel CABG 2. Recent stroke in November 2019 with continued short-term memory loss and impulsivity 3. Cardiomyopathy with EF 45-50% 4. Hypertension 5. Hyperlipidemia 6. Insulin-dependent diabetes with preoperative hemoglobin A1c 8% 7. Asthma 8. Previous tobacco dependence with preoperative FEV1 75% of predicted 9. Family history of premature coronary artery disease with father diagnosed less than 60 years old. 10. Postoperative acute blood loss anemia and thrombocytopenia, expected 11. Acute hypoxic respiratory failure requiring reintubation, unexpected 12. Metabolic alkalosis, hypokalemia Plan: 1. Continue aspirin, statin, Plavix, beta sarah therapy. 2. Ventilator managment, bronchodilators per pulmonology. Keep sedation as light as possible 3. Will monitor daily labs and x-rays. Electrolyte replacement per protocol, replace potassium to keep K>4.2. Lasix 40 mg IVP x 1 today 4. GI/DVT prophylaxis 5. Pain control with current medication regimen 6. Insulin management per Dr. Tafoya 7. Continue Hearn catheter for another 24 hours. 8. Strict accurate intake and output, daily weight 9. Resume tube feedings after PEG tube placement 10. Dr. Zamora to place PEG tube today 11. Will add IV levaquin secondary to fever 12. Will send second COVID test, doubt cause of fever 13. Social work/case management on consult for discharge planning, patient likely will need rehab at discharge 14. More recommendations to follow based on patient's progress Time with Patient: Greater than 30
[2020-05-28] MEDS: CHLORHEXIDINE GLUCONATE 15 ML CUP MUCOUS MEM SCH ×2 (09:13→20:22)
[2020-05-28] MEDS: ASPIRIN 325 MG TAB NG-TUBE SCH (09:18)
[2020-05-28] MEDS: CLOPIDOGREL 75 MG TAB PO SCH (09:19)
[2020-05-28] MEDS: ATORVASTATIN 40 MG TAB PO SCH (09:19)
[2020-05-28] MEDS: PANTOPRAZOLE 40 MG/10 ML VIAL IVP SCH (09:19)
[2020-05-28] MEDS: QUEtiapine 50 MG TAB PO SCH ×2 (09:19→20:22)
[2020-05-28] MEDS: LEVOFLOXACIN 500MG-D5W PMX 500 MG in DEXTROSE/WATER 1 100ML.BAG IVPB SCH (09:19)
[2020-05-28] MEDS: METOPROLOL TARTRATE 25 MG TAB NG-TUBE SCH ×2 (09:19→20:22)
[2020-05-28] MEDS: polyethylene glycoL 3350 17 GM POWD.PACK PO SCH (09:22)
--- NOTE | 2020-05-28 09:22 | P.PN ---
Subjective Progress Note Date: 05/28/20 HISTORY OF PRESENT ILLNESS: Patient is status post CABG 3. Postop day #6. Patient remains on mechanical ventilation. He is hemodynamically stable and not requiring any vasopressors. Telemetry reveals sinus rhythm. Patient is scheduled to have PEG tube placement today per Dr. Zamora. PHYSICAL EXAM: VITAL SIGNS: Reviewed. GENERAL: Well-developed in no acute distress. NECK: Supple. No JVD or thyromegaly LUNGS: Respirations even and unlabored. Lungs diminished. Remains on mechanical ventilation HEART: Regular rate and rhythm. S1 and S2 heard. EXTREMITIES: Normal range of motion. No clubbing or cyanosis. Peripheral pulses intact. No lower extremity edema ASSESSMENT: 1. Unstable angina, severe 3 vessel coronary artery disease, status post three- vessel CABG 2. Recent stroke in November 2019 with continued short-term memory loss and impulsivity 3. Ischemic Cardiomyopathy with EF 45-50% 4. Hypertension 5. Hyperlipidemia 6. Insulin-dependent diabetes with preoperative hemoglobin A1c 8% 7. Asthma 8. Previous tobacco dependence with preoperative FEV1 75% of predicted 9. Family history of premature coronary artery disease with father diagnosed less than 60 years old. 10. Postoperative acute blood loss anemia and thrombocytopenia, expected PLAN: Continue postoperative management per cardiothoracic surgery Continue ventilator management per Dr. Perdomo Patient to undergo PEG tube placement today Further recommendations pending patient's course Nurse practitioner note has been reviewed by physician. Signing provider agrees with the documented findings, assessment, and plan of care. Objective - Vital Signs Vital signs: Vital Signs Temp 100 F H 05/28/20 04:00 Pulse 69 05/28/20 07:38 Resp 20 05/28/20 07:00 BP 122/58 05/28/20 07:00 Pulse Ox 97 05/28/20 07:00 Intake & Output 05/27/20 05/28/20 05/28/20 18:59 06:59 18:59 Intake Total 1294.037 459.373 77 Output Total 1295 515 40 Balance -0.963 -55.627 37 Intake: IV 240 240 20 LR 240 240 20 Intake, IV Titration 250.037 165.373 57 Amount Insulin Regular 100 unit 70.136 36.240 57 In Sodium Chloride 0.9% 100 ml @ Per Protocol IV .Q0M [facility] Rx#:[id number] propofoL 1,000 mg In 179.901 129.133 Empty Bag 1 bag @ Titrate IV .Q0M COUNTS INCLUDE 234 BEDS AT THE [facility] Rx#: [id number] Tube Feeding 594 54 Other 210 Output: Urine 1295 515 40 Other: Voiding Method Indwelling Catheter Indwelling Catheter # Bowel Movements 1 ABP, PAP, CO, CI - Last Documented Arterial Blood Pressure 120/48 Pulmonary Artery Pressure 32/15 Cardiac Output 4.4 Cardiac Index 2.2 - Labs CBC & Chem 7: 05/28/20 04:30 05/28/20 04:30 Labs: Abnormal Lab Results - Last 24 Hours (Table) 05/27/20 05/27/20 05/27/20 Range/Units 10:13 11:48 14:01 RBC (4.30-5.90) m/uL Hgb (13.0-17.5) gm/dL Hct (39.0-53.0) % ABG pH (7.35-7.45) ABG pO2 (83-108) mmHg ABG HCO3 (21-25) mmol/L ABG Total CO2 (19-24) mmol/L Sodium (137-145) mmol/L Glucose (74-99) mg/dL POC Glucose (mg/dL) 141 H 145 H 130 H (75-99) mg/dL Calcium (8.4-10.2) mg/dL Total Protein (6.3-8.2) g/dL Albumin (3.5-5.0) g/dL 05/27/20 05/27/20 05/27/20 Range/Units 16:03 17:57 21:07 RBC (4.30-5.90) m/uL Hgb (13.0-17.5) gm/dL Hct (39.0-53.0) % ABG pH (7.35-7.45) ABG pO2 (83-108) mmHg ABG HCO3 (21-25) mmol/L ABG Total CO2 (19-24) mmol/L Sodium (137-145) mmol/L Glucose (74-99) mg/dL POC Glucose (mg/dL) 120 H 142 H 135 H (75-99) mg/dL Calcium (8.4-10.2) mg/dL Total Protein (6.3-8.2) g/dL Albumin (3.5-5.0) g/dL 05/27/20 05/28/2020 Range/Units 22:10 00:14 02:17 RBC (4.30-5.90) m/uL Hgb (13.0-17.5) gm/dL Hct (39.0-53.0) % ABG pH (7.35-7.45) ABG pO2 (83-108) mmHg ABG HCO3 (21-25) mmol/L ABG Total CO2 (19-24) mmol/L Sodium (137-145) mmol/L Glucose (74-99) mg/dL POC Glucose (mg/dL) 175 H 219 H 245 H (75-99) mg/dL Calcium (8.4-10.2) mg/dL Total Protein (6.3-8.2) g/dL Albumin (3.5-5.0) g/dL 05/28/20 05/28/20 05/28/20 Range/Units 02:59 04:09 04:30 RBC 3.19 L (4.30-5.90) m/uL Hgb 9.4 L (13.0-17.5) gm/dL Hct 28.4 L (39.0-53.0) % ABG pH (7.35-7.45) ABG pO2 (83-108) mmHg ABG HCO3 (21-25) mmol/L ABG Total CO2 (19-24) mmol/L Sodium (137-145) mmol/L Glucose (74-99) mg/dL POC Glucose (mg/dL) 233 H 212 H (75-99) mg/dL Calcium (8.4-10.2) mg/dL Total Protein (6.3-8.2) g/dL Albumin (3.5-5.0) g/dL 05/28/20 05/28/20 05/28/20 Range/Units 04:30 05:30 05:55 RBC (4.30-5.90) m/uL Hgb (13.0-17.5) gm/dL Hct (39.0-53.0) % ABG pH 7.53 H (7.35-7.45) ABG pO2 71 L (83-108) mmHg ABG HCO3 31 H (21-25) mmol/L ABG Total CO2 32 H (19-24) mmol/L Sodium 135 L (137-145) mmol/L Glucose 195 H (74-99) mg/dL POC Glucose (mg/dL) 182 H (75-99) mg/dL Calcium 8.1 L (8.4-10.2) mg/dL Total Protein 4.7 L (6.3-8.2) g/dL Albumin 2.4 L (3.5-5.0) g/dL 05/28/20 Range/Units 08:03 RBC (4.30-5.90) m/uL Hgb (13.0-17.5) gm/dL Hct (39.0-53.0) % ABG pH (7.35-7.45) ABG pO2 (83-108) mmHg ABG HCO3 (21-25) mmol/L ABG Total CO2 (19-24) mmol/L Sodium (137-145) mmol/L Glucose (74-99) mg/dL POC Glucose (mg/dL) 168 H (75-99) mg/dL Calcium (8.4-10.2) mg/dL Total Protein (6.3-8.2) g/dL Albumin (3.5-5.0) g/dL Microbiology - Last 24 Hours (Table) 05/25/20 22:00 Gram Stain - Final Sputum Sputum Culture - Final 05/26/20 09:53 Blood Culture - Preliminary Blood No Growth after 24 hours
[2020-05-28] MEDS ORDERED: IV FLUID CONTINUATION 1,000 ML IV ONE (09:36)
[2020-05-28 09:59] LABS: Glucose,Whole Blood 126 mg/dL (75-99)
--- NOTE | 2020-05-28 11:01 | P.OP ---
Date of Procedure: 05/28/20 Preoperative Diagnosis: Malnutrition Postoperative Diagnosis: Malnutrition Procedure(s) Performed: EGD with PEG tube placement Anesthesia: AL Surgeon: Chivo Zamora Estimated Blood Loss (ml): 5 Pathology: none sent Condition: stable Disposition: PACU Description of Procedure: The patient's placed on the endoscopy table in the lateral position. He received IV station. The gastroscope placed oropharynx and passed in the esophagus and into the stomach. Scope was then placed through the pylorus. The first and second portion of the duodenum appeared normal. Scope was then brought back and a suitable light reflux was seen the anterior abdominal wall. A skin incision was made and then the needles placed and stomach under direct visualization needle was snared and then the wire was placed through the needle and the wire was snared the wire was then brought through the oropharynx. The PEG tube was then placed overtop the wire and brought down to the stomach. The PEG tube bolster was secured at 3 cm jose juan. Patient tolerated the procedure well and will start tube feeds tomorrow
[2020-05-28 12:32] LABS: Glucose,Whole Blood 102 mg/dL (75-99)
--- NOTE | 2020-05-28 13:17 | P.PN ---
Subjective Progress Note Date: 05/28/20 Principal diagnosis: Coronary artery disease status post three-vessel coronary artery bypass grafting. Postoperative day #2 The patient is seen today 05/24/2020 in follow-up in the intensive care unit. This is postoperative day #2 of a 3 vessel coronary artery bypass surgery. He received a DOOLEY to the LAD, reverse saphenous vein grafts to the obtuse marginal artery and posterior descending artery. He has since been extubated. He is currently on 2 L/m per nasal cannula to maintain O2 saturations in the 90s. He has lactated Ringer's running at 70 mL's per hour. Currently on Cleviprexl drip at 5 mg per hour. Chest x-ray reveals pulmonary vascular congestion. Patchy retrocardiac opacity also persists. Most likely atelectasis versus patchy pulmonary edema. White count 12.6. Hemoglobin 11.3. Platelet count 127. Sodium 136. Potassium 4.3. Creatinine 0.76. Mediastinal chest tube and pacer wires removed today. The patient is seen today 05/25/2020 in follow-up in the intensive care unit. This is postoperative day #3. He is maintaining O2 saturations in the 90s on 2 L/m per nasal cannula. Dobbhoff tube has been placed for nutrition. He remains on Precedex at 0.1 mg/kg/m. Lactated Ringer's at 70 miles per hour. Chest x- ray reveals low lung volumes, cardiomegaly, central vascular congestion left greater than right bibasilar infiltrate/atelectasis. Some worsening of the congestion compared to yesterday. White count 9.5. Hemoglobin 10.5. Platelet count 37,000. Sodium 136. Potassium 4.2. Creatinine 1.01. Patient has not been appropriate from the neurologic standpoint. Computed tomography scan of the brain today revealed no acute intracranial hemorrhage or midline shift. There is mild to moderate diffuse cerebral atrophy and chronic small vessel changes. No significant change compared to previous of November 2019. Sitter remains at the bedside. The patient is seen today 05/26/2020 in follow-up in the intensive care unit. This is postoperative day #4. Last evening he became more restless and hypoxemic and required reintubation. Current vent settings are assist-control with a rate of 20, tidal volume 450, FiO2 40% and a PEEP of 5. Morning blood gases revealed a PaO2 of 170, pCO2 31, pH 7.49. He is sedated on propofol at 40 mcg/kg/m. He is on norepinephrine at 0.02 mcg/kg/m. Lactated Ringer's at 20 ML's per hour. He is being nourished with Glucerna at 40 ML's per hour. Chest x-ray reveals improving lung markings, infiltrate remains at the left base. Cardiomegaly. Dobbhoff feeding tube in place. Urine culture pending, sputum culture pending. White count 10.5. Hemoglobin 9.8. Platelet count 199. Sodium 134. Potassium 3.7. Creatinine 0.86. Glucose 165. Remains on bronchodilators. Heparin for DVT prophylaxis. The patient is seen today 05/27/2020 in follow-up in the intensive care unit. This postoperative day #5. He remains intubated on mechanical ventilator with assist control of 20, tidal volume 450, FiO2 25% and a PEEP of 5. Morning blood gases reveal pO2 86, pCO2 33, pH H7.57. He is currently sedated on propofol at 30 her kilogram per minute. Insulin drip at 6.5 units per hour. Lactated Ringer's at 20 mg liters per hour. He is being nourished with vital HP 54 ML's per hour which is goal. Plan is for PEG tube placement tomorrow. Urine culture revealed no growth. Sputum culture pending. White count 7.8. Hemoglobin 9.9. Sodium 135. Potassium 3.4. Creatinine 0.89. Chest x-ray reveals prominent focal retrocardiac and left basilar airspace disease. The patient is seen today 05/28/2020 in follow-up in the intensive care unit. He remains intubated on the mechanical ventilator. Current settings assist- control 20, tidal volume 450, FiO2 25% and a PEEP of 5. Morning blood gases reveal a P O2 of 71, pCO2 37, pH 7.53. He is receiving lactated Ringer's at 20 ML's per hour. Sedated with propofol at 25 mcg/kg/m. Insulin at 10 units per hour. Vital HP at 54 ML's per hour which is at goal. Currently on hold for PEG tube placement today. His been some serous drainage noted on his incision. He did have an elevated temperature as well. T-max 101. Chest x-ray reveals prominent retrocardiac and left basilar airspace disease. Possible underlying effusion. Lasix was given today. Levaquin will be added. He is being tested for CoVID infection as well. Blood cultures reveal no growth to date. Sputum culture revealed no growth. Urine culture revealed no growth. White count 7.8. Hemoglobin 9.4. Sodium 135. Potassium 3.8. Creatinine 0.72. Objective - Vital Signs Vital signs: Vital Signs Temp 99.8 F H 05/28/20 08:00 Pulse 59 L 05/28/20 11:15 Resp 16 05/28/20 10:00 BP 118/57 05/28/20 10:00 Pulse Ox 99 05/28/20 10:00 Intake & Output 05/27/20 05/28/20 05/28/20 18:59 06:59 18:59 Intake Total 1294.037 459.373 257.701 Output Total 1295 515 140 Balance -0.963 -55.627 117.701 Weight 86.9 kg Intake: IV 240 240 130 LR 240 240 80 Intake, IV Titration 250.037 165.373 97.701 Amount Insulin Regular 100 unit 70.136 36.240 82.233 In Sodium Chloride 0.9% 100 ml @ Per Protocol IV .Q0M [facility] Rx#:[id number] propofoL 1,000 mg In 179.901 129.133 15.468 Empty Bag 1 bag @ Titrate IV .Q0M [facility] Rx#: [id number] Tube Feeding 594 54 Other 210 30 Output: Urine 1295 515 140 Other: Voiding Method Indwelling Catheter Indwelling Catheter Indwelling Catheter # Bowel Movements 1 ABP, PAP, CO, CI - Last Documented Arterial Blood Pressure 124/53 Pulmonary Artery Pressure 32/15 Cardiac Output 4.4 Cardiac Index 2.2 - Exam GENERAL EXAM: Intubated, sedated 74-year-old gentleman, on the mechanical ventilator at 25% FiO2. HEAD: Normocephalic. EYES: Sluggish reaction of pupils, equal size. NOSE: Oral endotracheal and gastric tube secured in place. Clear with pink turbinates. THROAT: No erythema or exudates. NECK: No masses, no JVD. CHEST: Sternal dressing dry and intact. Serous drainage noted from incision. No chest wall deformity. LUNGS: Equal air entry with crackles in the bilateral posterior bases.. CVS: S1 and S2 normal with no audible murmur, regular rhythm. ABDOMEN: No hepatosplenomegaly, normal bowel sounds, no guarding or rigidity. SPINE: No scoliosis or deformity SKIN: No rashes CENTRAL NERVOUS SYSTEM: Tone is normal in all 4 extremities. EXTREMITIES: There is no peripheral edema. No clubbing, no cyanosis. Peripheral pulses are intact. - Labs CBC & Chem 7: 05/28/20 04:30 05/28/20 04:30 Labs: Abnormal Lab Results - Last 24 Hours (Table) 05/27/20 05/27/20 05/27/20 Range/Units 14:01 16:03 17:57 RBC (4.30-5.90) m/uL Hgb (13.0-17.5) gm/dL Hct (39.0-53.0) % ABG pH (7.35-7.45) ABG pO2 (83-108) mmHg ABG HCO3 (21-25) mmol/L ABG Total CO2 (19-24) mmol/L Sodium (137-145) mmol/L Glucose (74-99) mg/dL POC Glucose (mg/dL) 130 H 120 H 142 H (75-99) mg/dL Calcium (8.4-10.2) mg/dL Total Protein (6.3-8.2) g/dL Albumin (3.5-5.0) g/dL 05/27/20 05/27/20 05/28/20 Range/Units 21:07 22:10 00:14 RBC (4.30-5.90) m/uL Hgb (13.0-17.5) gm/dL Hct (39.0-53.0) % ABG pH (7.35-7.45) ABG pO2 (83-108) mmHg ABG HCO3 (21-25) mmol/L ABG Total CO2 (19-24) mmol/L Sodium (137-145) mmol/L Glucose (74-99) mg/dL POC Glucose (mg/dL) 135 H 175 H 219 H (75-99) mg/dL Calcium (8.4-10.2) mg/dL Total Protein (6.3-8.2) g/dL Albumin (3.5-5.0) g/dL 05/28/20 05/28/20 05/28/20 Range/Units 02:17 02:59 04:09 RBC (4.30-5.90) m/uL Hgb (13.0-17.5) gm/dL Hct (39.0-53.0) % ABG pH (7.35-7.45) ABG pO2 (83-108) mmHg ABG HCO3 (21-25) mmol/L ABG Total CO2 (19-24) mmol/L Sodium (137-145) mmol/L Glucose (74-99) mg/dL POC Glucose (mg/dL) 245 H 233 H 212 H (75-99) mg/dL Calcium (8.4-10.2) mg/dL Total Protein (6.3-8.2) g/dL Albumin (3.5-5.0) g/dL 05/28/20 05/28/20 05/28/20 Range/Units 04:30 04:30 05:30 RBC 3.19 L (4.30-5.90) m/uL Hgb 9.4 L (13.0-17.5) gm/dL Hct 28.4 L (39.0-53.0) % ABG pH 7.53 H (7.35-7.45) ABG pO2 71 L (83-108) mmHg ABG HCO3 31 H (21-25) mmol/L ABG Total CO2 32 H (19-24) mmol/L Sodium 135 L (137-145) mmol/L Glucose 195 H (74-99) mg/dL POC Glucose (mg/dL) (75-99) mg/dL Calcium 8.1 L (8.4-10.2) mg/dL Total Protein 4.7 L (6.3-8.2) g/dL Albumin 2.4 L (3.5-5.0) g/dL 05/28/20 05/28/20 05/28/20 Range/Units 05:55 08:03 09:58 RBC (4.30-5.90) m/uL Hgb (13.0-17.5) gm/dL Hct (39.0-53.0) % ABG pH (7.35-7.45) ABG pO2 (83-108) mmHg ABG HCO3 (21-25) mmol/L ABG Total CO2 (19-24) mmol/L Sodium (137-145) mmol/L Glucose (74-99) mg/dL POC Glucose (mg/dL) 182 H 168 H 126 H (75-99) mg/dL Calcium (8.4-10.2) mg/dL Total Protein (6.3-8.2) g/dL Albumin (3.5-5.0) g/dL 05/28/20 Range/Units 12:31 RBC (4.30-5.90) m/uL Hgb (13.0-17.5) gm/dL Hct (39.0-53.0) % ABG pH (7.35-7.45) ABG pO2 (83-108) mmHg ABG HCO3 (21-25) mmol/L ABG Total CO2 (19-24) mmol/L Sodium (137-145) mmol/L Glucose (74-99) mg/dL POC Glucose (mg/dL) 102 H (75-99) mg/dL Calcium (8.4-10.2) mg/dL Total Protein (6.3-8.2) g/dL Albumin (3.5-5.0) g/dL Microbiology - Last 24 Hours (Table) 05/26/20 09:53 Blood Culture - Preliminary Blood No Growth after 48 hours 05/25/20 22:00 Gram Stain - Final Sputum Sputum Culture - Final Assessment and Plan Assessment: 1 Coronary artery disease status post three-vessel coronary artery bypass grafting. Postoperative day #6 2 Acute hypoxemic respiratory failure requiring reintubation and placed back on the mechanical ventilator on 05/25/2020, unexpected 3 Ischemic cardiomyopathy with ejection fraction 45-50% 4 Hyperlipidemia 5 Diabetes mellitus 6 Chronic bronchial asthma 7 History of chronic tobacco dependence 8 Recent CVA in November 2019 with ongoing altered mental status 9 Hypertension, history of Plan: The patient was seen and evaluated by Dr. Perdomo Chest x-ray, ABG and labs reviewed Add Levaquin IV Lasix today CoVID screen is pending Plan is for PEG tube placement today Continue daily interruption of sedation We will continue to follow and make further recommendations based on his clinical status Critical care time 36 minutes I, the cosigning physician, performed a history & physical examination of the patient. Lungs sounds crackles in the bilateral posterior bases. Maintaining good O2 saturations in the 90s on 25% FiO2 on the mechanical ventilator. I discussed the assessment and plan of care with my nurse practitioner, Katie Hinojosa. I attest to the above note as dictated by her. Time with Patient: Greater than 30
[2020-05-28 13:56] LABS: Glucose,Whole Blood 123 mg/dL (75-99)
[2020-05-28] MEDS: INSULIN REGULAR 100 UNIT in SODIUM CHLORIDE 0.9% 100 ML IV SCH (13:56)
[2020-05-28 15:08] LABS: Glucose,Whole Blood 114 mg/dL (75-99)
[2020-05-28 17:08] LABS: Glucose,Whole Blood 156 mg/dL (75-99)
[2020-05-28 18:30] LABS: Glucose,Whole Blood 136 mg/dL (75-99)
[2020-05-28] MEDS: LACTATED RINGERS 1,000 ML IV SCH (20:22)
[2020-05-28] MEDS: SENNOSIDES-DOCUSATE SODIUM 1 EACH TAB PO SCH (20:22)
[2020-05-28 21:14] LABS: Glucose,Whole Blood 131 mg/dL (75-99)
--- NOTE | 2020-05-28 21:56 | P.PN ---
Subjective Progress Note Date: 05/28/20 Principal diagnosis: CABG s/p Triple vessel CAD This patient was cared for during of fentanyl and states the cleared state of emergency secondary to COVID 19. Covering for Dr. Tafoya over the weekend. On 05/27/2020- Mr. Perez, is a 74-year-old male with a past medical history of asthma, CVA/TIA, diabetes mellitus, GERD, hypertension admitted to the hospital for unstable angina. Then patient was found to have triple-vessel disease and he had Coronary artery bypass grafting - postoperative day 5 today. Patient had postoperative acute blood loss anemia and thrombocytopenia. Last night patient became restless and hypoxemic and he required reintubation. Currently patient remains intubated on mechanical ventilation. His morning ABGs showed pH of 7.57, pCO2 33, pO2 86. He is sedated and on an insulin drip. Review of systems could not be done as the patient is intubated and sedated. On 05/28/2020 -patient is seen and examined in the intensive care unit. He is intubated and sedated. Patient had a PEG tube placement done today. On reviewing the vitals patient spiked a fever of 101 yesterday evening. So septic work-up with urine cultures, blood cultures and sputum cultures have been obtained. He is also being checked for Covid infection. Patient had a chest x- ray done showing left basilar airspace and Levaquin has been started by pulmonary team. ABGs done this morning showing pH of 7.53, PO2 71, PCO2 37. Sodium 135, potassium 3.8, chloride 103, bicarb 29, BUN 20, creatinine 0.72. Albumin 2.4. Active Medications Acetaminophen (Acetaminophen Tab 325 Mg Tab) 650 mg PO Q4HR PRN PRN Reason: Fever and/ or Pain Last Admin: 05/27/20 16:56 Dose: 650 mg Documented by: Albuterol/Ipratropium (Ipratropium-Albuterol 3 Ml Neb) 3 ml INHALATION RT-Q2H PRN PRN Reason: Shortness Of Breath Or Wheezing Albuterol/Ipratropium (Ipratropium-Albuterol 3 Ml Neb) 3 ml INHALATION RT-Q4H [facility] Last Admin: 05/28/20 19:36 Dose: 3 ml Documented by: Aspirin (Aspirin 325 Mg Tab) 325 mg NG-TUBE DAILY [facility] Last Admin: 05/28/20 09:18 Dose: 325 mg Documented by: Atorvastatin Calcium (Atorvastatin 40 Mg Tab) 40 mg PO DAILY [facility] Last Admin: 05/28/20 09:19 Dose: 40 mg Documented by: Benzocaine/Menthol (Benzocaine/Menthol Lozeng 1 Each Lozenge) 1 each MUCOUS MEM Q2H PRN PRN Reason: Sore Throat Bisacodyl (Bisacodyl 10 Mg Supp) 10 mg RECTAL DAILY PRN PRN Reason: Constipation Chlorhexidine Gluconate (Chlorhexidine Gluconate 15 Ml Cup) 15 ml MUCOUS MEM BID [facility] Last Admin: 05/28/20 20:22 Dose: 15 ml Documented by: Clopidogrel Bisulfate (Clopidogrel 75 Mg Tab) 75 mg PO DAILY [facility] Last Admin: 05/28/20 09:19 Dose: 75 mg Documented by: Heparin Sodium (Porcine) (Heparin Sodium,Porcine 5,000 Unit/Ml 1 Ml Vial) 5,000 unit SQ Q8H [facility] Last Admin: 05/28/20 20:23 Dose: 5,000 unit Documented by: Amiodarone HCl 150 mg/ (Dextrose/Water) 103 mls @ 618 mls/hr IV .Q10M PRN; Protocol PRN Reason: A.FIB/FLUTTER Lactated Ringer's (Lactated Ringers) 1,000 mls @ 20 mls/hr IV .Q24H [facility] Last Admin: 05/28/20 20:22 Dose: 20 mls/hr Documented by: Propofol 1,000 mg/ IV Solution 100 mls @ 0 mls/hr IV .Q0M [facility]; Protocol Last Admin: 05/28/20 13:31 Dose: 20 mcg/kg/min, 10.428 mls/hr Documented by: Insulin Human Regular 100 unit (/ Sodium Chloride) 101 mls @ 0 mls/hr IV .Q0M [facility]; Protocol Last Titration: 05/28/20 18:30 Dose: 5 units/hr, 5.05 mls/hr Documented by: Levofloxacin 500 mg/ IV (Solution) 100 mls @ 100 mls/hr IVPB Q24H [facility] Last Admin: 05/28/20 09:19 Dose: 100 mls/hr Documented by: Insulin Detemir (Insulin Detemir (Levemir) 100 Unit/Ml Syr) 10 unit SQ DAILY@0700 [facility] Last Admin: 05/28/20 06:36 Dose: 10 unit Documented by: Insulin Human Regular (Insulin Regular Bolus (From Drip Bag)) 9.1 unit 0.1 unit/kg (9.1 unit) IV ONCE PRN PRN Reason: Blood Sugar - High Stop: 06/02/20 23:00 Magnesium Hydroxide (Magnesium Hydroxide 2,400 Mg/10 Ml Cup) 2,400 mg PO BID PRN PRN Reason: Constipation Metoclopramide HCl (Metoclopramide 5 Mg/Ml 2 Ml Vial) 10 mg IVP Q4H PRN PRN Reason: Nausea And Vomiting Last Admin: 05/23/20 00:47 Dose: 10 mg Documented by: Metoprolol Tartrate (Metoprolol Tartrate 25 Mg Tab) 25 mg NG-TUBE BID [facility] Last Admin: 05/28/20 20:22 Dose: 25 mg Documented by: Miscellaneous Information (Potassium Replacement Protocol 1 Each Misc) 1 each MISCELLANE DAILY PRN; Protocol PRN Reason: Per Protocol Miscellaneous Information (Magnesium Replacement Protocol 1 Each Misc) 1 each MISCELLANE DAILY PRN; Protocol PRN Reason: Per Protocol Miscellaneous Information (Phosphorus Replacement Protoco 1 Each Misc) 1 each MISCELLANE DAILY PRN; Protocol PRN Reason: Per Protocol Ondansetron HCl (Ondansetron 4 Mg/2 Ml Vial) 4 mg IVP Q6HR PRN PRN Reason: Nausea And Vomiting Last Admin: 05/22/20 21:52 Dose: 4 mg Documented by: Pantoprazole Sodium (Pantoprazole 40 Mg/10 Ml Vial) 40 mg IVP DAILY [facility] Last Admin: 05/28/20 09:19 Dose: 40 mg Documented by: Polyethylene Glycol (Polyethylene Glycol 3350 17 Gm Powd.Pack) 17 gm PO DAILY [facility] Last Admin: 05/28/20 09:22 Dose: 17 gm Documented by: Quetiapine Fumarate (Quetiapine 50 Mg Tab) 50 mg PO BID [facility] Last Admin: 05/28/20 20:22 Dose: 50 mg Documented by: Senna/Docusate Sodium (Sennosides-Docusate Sodium 1 Each Tab) 2 each PO HS [facility] Last Admin: 05/28/20 20:22 Dose: 2 each Documented by: Sodium Chloride (Sodium Chloride 0.9% Flush 10 Ml Syringe) 10 ml IV BID [facility] Last Admin: 05/28/20 20:23 Dose: 10 ml Documented by: Objective - Vital Signs Vital signs: Vital Signs Temp 99.5 F 05/28/20 12:00 Pulse 60 05/28/20 13:00 Resp 16 05/28/20 13:00 BP 103/61 05/28/20 13:00 Pulse Ox 99 05/28/20 13:00 Intake & Output 05/27/20 05/28/20 05/28/20 18:59 06:59 18:59 Intake Total 1294.037 459.373 409.611 Output Total 1295 515 665 Balance -0.963 -55.627 -255.389 Weight 86.9 kg Intake: IV 240 240 210 LR 240 240 160 Intake, IV Titration 250.037 165.373 169.611 Amount Insulin Regular 100 unit 70.136 36.240 82.233 In Sodium Chloride 0.9% 100 ml @ Per Protocol IV .Q0M [facility] Rx#:[id number] propofoL 1,000 mg In 179.901 129.133 87.378 Empty Bag 1 bag @ Titrate IV .Q0M [facility] Rx#: [id number] Tube Feeding 594 54 Other 210 30 Output: Urine 1295 515 665 Other: Voiding Method Indwelling Catheter Indwelling Catheter Indwelling Catheter # Bowel Movements 1 ABP, PAP, CO, CI - Last Documented Arterial Blood Pressure 95/37 Pulmonary Artery Pressure 32/15 Cardiac Output 4.4 Cardiac Index 2.2 - Exam General: sedated and intubated on mechanical ventilation Eyes: PERRL, EOMI, conjunctiva normal HENT: normocephalic, atraumatic Neck: supple, no JVD Lungs: normal respiratory effort, scattered rhonchi, bibasilar crackles CVS: Regular rate and rhythm, no murmur. Peripheral pulses 2+ Abdomen: soft, nondistended, no organomegaly, PEG tube in place Skin: warm and dry. Neuro: sedated. - Labs CBC & Chem 7: 05/28/20 04:30 05/28/20 04:30 Labs: Abnormal Lab Results - Last 24 Hours (Table) 05/27/20 05/27/20 05/27/20 Range/Units 16:03 17:57 21:07 RBC (4.30-5.90) m/uL Hgb (13.0-17.5) gm/dL Hct (39.0-53.0) % ABG pH (7.35-7.45) ABG pO2 (83-108) mmHg ABG HCO3 (21-25) mmol/L ABG Total CO2 (19-24) mmol/L Sodium (137-145) mmol/L Glucose (74-99) mg/dL POC Glucose (mg/dL) 120 H 142 H 135 H (75-99) mg/dL Calcium (8.4-10.2) mg/dL Total Protein (6.3-8.2) g/dL Albumin (3.5-5.0) g/dL 05/27/20 05/28/20 05/28/20 Range/Units 22:10 00:14 02:17 RBC (4.30-5.90) m/uL Hgb (13.0-17.5) gm/dL Hct (39.0-53.0) % ABG pH (7.35-7.45) ABG pO2 (83-108) mmHg ABG HCO3 (21-25) mmol/L ABG Total CO2 (19-24) mmol/L Sodium (137-145) mmol/L Glucose (74-99) mg/dL POC Glucose (mg/dL) 175 H 219 H 245 H (75-99) mg/dL Calcium (8.4-10.2) mg/dL Total Protein (6.3-8.2) g/dL Albumin (3.5-5.0) g/dL 05/28/20 05/28/20 05/28/20 Range/Units 02:59 04:09 04:30 RBC 3.19 L (4.30-5.90) m/uL Hgb 9.4 L (13.0-17.5) gm/dL Hct 28.4 L (39.0-53.0) % ABG pH (7.35-7.45) ABG pO2 (83-108) mmHg ABG HCO3 (21-25) mmol/L ABG Total CO2 (19-24) mmol/L Sodium (137-145) mmol/L Glucose (74-99) mg/dL POC Glucose (mg/dL) 233 H 212 H (75-99) mg/dL Calcium (8.4-10.2) mg/dL Total Protein (6.3-8.2) g/dL Albumin (3.5-5.0) g/dL 05/28/20 05/28/20 05/28/20 Range/Units 04:30 05:30 05:55 RBC (4.30-5.90) m/uL Hgb (13.0-17.5) gm/dL Hct (39.0-53.0) % ABG pH 7.53 H (7.35-7.45) ABG pO2 71 L (83-108) mmHg ABG HCO3 31 H (21-25) mmol/L ABG Total CO2 32 H (19-24) mmol/L Sodium 135 L (137-145) mmol/L Glucose 195 H (74-99) mg/dL POC Glucose (mg/dL) 182 H (75-99) mg/dL Calcium 8.1 L (8.4-10.2) mg/dL Total Protein 4.7 L (6.3-8.2) g/dL Albumin 2.4 L (3.5-5.0) g/dL 05/28/20 05/28/20 05/28/20 Range/Units 08:03 09:58 12:31 RBC (4.30-5.90) m/uL Hgb (13.0-17.5) gm/dL Hct (39.0-53.0) % ABG pH (7.35-7.45) ABG pO2 (83-108) mmHg ABG HCO3 (21-25) mmol/L ABG Total CO2 (19-24) mmol/L Sodium (137-145) mmol/L Glucose (74-99) mg/dL POC Glucose (mg/dL) 168 H 126 H 102 H (75-99) mg/dL Calcium (8.4-10.2) mg/dL Total Protein (6.3-8.2) g/dL Albumin (3.5-5.0) g/dL 05/28/20 Range/Units 13:55 RBC (4.30-5.90) m/uL Hgb (13.0-17.5) gm/dL Hct (39.0-53.0) % ABG pH (7.35-7.45) ABG pO2 (83-108) mmHg ABG HCO3 (21-25) mmol/L ABG Total CO2 (19-24) mmol/L Sodium (137-145) mmol/L Glucose (74-99) mg/dL POC Glucose (mg/dL) 123 H (75-99) mg/dL Calcium (8.4-10.2) mg/dL Total Protein (6.3-8.2) g/dL Albumin (3.5-5.0) g/dL Microbiology - Last 24 Hours (Table) 05/26/20 09:53 Blood Culture - Preliminary Blood No Growth after 48 hours 05/25/20 22:00 Gram Stain - Final Sputum Sputum Culture - Final Assessment and Plan Assessment: ASSESSMENT CABG status post triple vessel coronary artery disease. 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 Patient has been started on Levaquin by pulmonary team. Postop management as per CT surgery and ventilation management as per pulmonary. Continue with the rest of his current medication regimen. Overall prognosis is guarded. Further recommendations to follow depending on the progress of the patient.
[2020-05-28 22:02] LABS: Glucose,Whole Blood 135 mg/dL (75-99)
[2020-05-28 22:53] LABS: Glucose,Whole Blood 131 mg/dL (75-99)
[2020-05-29 01:16] LABS: Glucose,Whole Blood 170 mg/dL (75-99)
[2020-05-29] MEDS: IPRATROPIUM-ALBUTEROL 3 ML NEB INHALATION SCH ×7 (01:52→23:04)
[2020-05-29 02:16] LABS: Glucose,Whole Blood 180 mg/dL (75-99)
[2020-05-29 03:07] LABS: Glucose,Whole Blood 166 mg/dL (75-99)
[2020-05-29 04:23] LABS: Glucose,Whole Blood 162 mg/dL (75-99)
[2020-05-29] MEDS: HEPARIN SODIUM,PORCINE 5,000 UNIT/ML 1 ML VIAL SQ SCH ×3 (04:56→20:11)
[2020-05-29 04:58] LABS: Basophils % (A) 0 %; Eosinophils # (A) 0.2 k/uL (0-0.7); Eosinophils % (A) 3 %; HCT 26.3 % (39.0-53.0); Lymphocytes # (A) 1.1 k/uL (1.0-4.8); Lymphocytes % (A) 15 %; MCH 30.5 pg (25.0-35.0); MCHC 34.1 g/dL (31.0-37.0); MCV 89.4 fL (80.0-100.0); Mean Platelet Volume 8.4; Monocytes # (A) 0.4 k/uL (0-1.0); Monocytes % (A) 6 %; Neutrophils # (A) 5.3 k/uL (1.3-7.7); Neutrophils % (A) 73 %; Platelet Count 239 k/uL (150-450); RBC 2.95 m/uL (4.30-5.90); RDW 13.6 % (11.5-15.5); WBC 7.2 k/uL (3.8-10.6)
[2020-05-29 05:20] LABS: Glucose,Whole Blood 142 mg/dL (75-99)
[2020-05-29 05:27] LABS: ALT 12 U/L (4-49); AST 23 U/L (17-59); African American GFR (CKD) >90 (>60 ml/min/1.73 sqM); Albumin 2.3 g/dL (3.5-5.0); Alkaline Phosphatase 45 U/L (38-126); Anion Gap 3 mmol/L; Blood Urea Nitrogen 15 mg/dL (9-20); Calcium 8.1 mg/dL (8.4-10.2); Carbon Dioxide 32 mmol/L (22-30); Chloride 102 mmol/L (98-107); Glucose 151 mg/dL (74-99); Non-African American GFR(CKD) >90 (>60 ml/min/1.73 sqM); Potassium 4.2 mmol/L (3.5-5.1); Sodium 137 mmol/L (137-145); Total Bilirubin 0.7 mg/dL (0.2-1.3); Total Protein 4.8 g/dL (6.3-8.2)
[2020-05-29 05:31] LABS: ABG Base Excess 7.8 mmol/L; ABG HCO3 31 mmol/L (21-25); ABG Oxygen Saturation 97.3 % (94-97); ABG PCO2 40 mmHg (35-45); ABG PO2 79 mmHg (83-108); ABG TCO2 32 mmol/L (19-24)
[2020-05-29 05:49] LABS: Allen Test Performed? no
[2020-05-29] MEDS: INSULIN DETEMIR (LEVEMIR) 100 UNIT/ML SYR SQ SCH (06:13)
[2020-05-29] MEDS ORDERED: FUROSEMIDE 10 MG/ML 4 ML VIAL IV STA (06:42)
--- NOTE | 2020-05-29 06:42 | P.PN ---
Subjective Progress Note Date: 05/29/20 74-year-old male patient with post four-vessel bypass surgery. The patient is postop day #7 the patient underwent DOOLEY to LAD and saphenous vein graft to obtuse marginal and PDA. The patient has cardiomyopathy with ejection fraction of 45%. The patient has insulin-dependent diabetes mellitus and the patient has a previous history of CVA including with a short-term memory loss and impulsivity. Postextubation and currently the patient remains on a mechanical ventilator. His cardiac rhythm is sinus. He is hemodynamically stable. The patient remains on assist control mode of ventilation at the rate of 16 with a tidal volume of 450 and FiO2 of 25% and a PEEP of 5. He is post exhibition insertion and the patient will be started on feeding for nutritional support. Sedation is with propofol at a rate of 30mcg per KG per minute and insulin drip is running 4U units an hour for blood sugar control. Chest x-ray showing some retrocardiac infiltration and left basilar airspace disease. The patient is currently on Levaquin as an empiric antibiotic coverage. The patient is on DuoNeb nebulized treatments around the clock, aspirin and Plavix and the patient is also on metoprolol 25 mg by mouth twice a day. The sputum culture has shown no growth. Urine cultures no growth. A CAT scan of the brain that showed no evidence of any acute intracranial hemorrhage or midline shift. This is uncha nged compared to previous CT if the brain of November 2019. The blood gases from today showed a pH of 7.5 with a pCO2 of 40 and pO2 of 79. Peak airway pressures nonelevated at 22. X-ray showing cardiomegaly. If she was in a good location. The patient has pulmonary vessel congestion. There is also bowel loops on the right hemidiaphragm. There is also volume loss and the patient is smaller lung volumes. The patient was given a dose of Lasix 40 mg of push yesterday. His net fluid balance for yesterday is negative 255 mL. urine output is in order of 30-60 mL an hour. Patient is also on Seroquel 50 mg by mouth twice a day. He is on Levemir insulin was introduced for blood sugar control. Objective - Vital Signs Vital signs: Vital Signs Temp 100.8 F H 05/29/20 00:00 Pulse 73 12/07/20 05:00 Resp 16 05/29/20 05:00 BP 106/55 05/29/20 05:00 Pulse Ox 98 05/29/20 05:00 Intake & Output 05/28/20 05/28/20 05/29/20 06:59 18:59 06:59 Intake Total 459.373 523.254 388.128 Output Total 515 1330 450 Balance -55.627 -806.746 -61.872 Weight 86.9 kg Intake: IV 240 310 200 LR 240 260 200 Intake, IV Titration 165.373 183.254 188.128 Amount Insulin Regular 100 unit 36.240 95.876 34.424 In Sodium Chloride 0.9% 100 ml @ Per Protocol IV .Q0M [facility] Rx#:[id number] propofoL 1,000 mg In 129.133 87.378 153.704 Empty Bag 1 bag @ Titrate IV .Q0M [facility] Rx#: [id number] Tube Feeding 54 Other 30 Output: Urine 515 1330 450 Other: Voiding Method Indwelling Catheter Indwelling Catheter Indwelling Catheter ABP, PAP, CO, CI - Last Documented Arterial Blood Pressure 117/48 Pulmonary Artery Pressure 32/15 Cardiac Output 4.4 Cardiac Index 2.2 - Exam GENERAL EXAM: Intubated, sedated 74-year-old gentleman, on the mechanical ventilator , orotracheal tube is in place. The patient has a PEG tube in place. He is currently sedated with propofol. Propofol is running at 30 g per KG per minute. HEAD: Normocephalic. EYES: Sluggish reaction of pupils, equal size. NOSE: Oral endotracheal and gastric tube secured in place. Clear with pink turbinates. THROAT: No erythema or exudates. NECK: No masses, no JVD. CHEST: Sternal dressing dry and intact. Serous drainage noted from incision. No chest wall deformity.no active drainage from the chest wall wound. No surrounding cellulitis at this point in time. LUNGS: Equal air entry with crackles in the bilateral posterior bases.. CVS: S1 and S2 normal with no audible murmur, regular rhythm. ABDOMEN: No hepatosplenomegaly, normal bowel sounds, no guarding or rigidity.the patient has an umbilical hernia. The patient also has a PEG tube in place SPINE: No scoliosis or deformity SKIN: No rashes CENTRAL NERVOUS SYSTEM: Tone is normal in all 4 extremities. EXTREMITIES: There is no peripheral edema. No clubbing, no cyanosis. Peripheral pulses are intact. - Labs CBC & Chem 7: 05/29/20 04:20 05/29/20 04:20 Labs: Abnormal Lab Results - Last 24 Hours (Table) 05/28/20 05/28/20 05/28/20 Range/Units 08:03 09:58 12:31 RBC (4.30-5.90) m/uL Hgb (13.0-17.5) gm/dL Hct (39.0-53.0) % ABG pH (7.35-7.45) ABG pO2 (83-108) mmHg ABG HCO3 (21-25) mmol/L ABG Total CO2 (19-24) mmol/L ABG O2 Saturation (94-97) % Carbon Dioxide (22-30) mmol/L Glucose (74-99) mg/dL POC Glucose (mg/dL) 168 H 126 H 102 H (75-99) mg/dL Calcium (8.4-10.2) mg/dL Total Protein (6.3-8.2) g/dL Albumin (3.5-5.0) g/dL 05/28/20 05/28/20 05/28/20 Range/Units 13:55 15:06 17:07 RBC (4.30-5.90) m/uL Hgb (13.0-17.5) gm/dL Hct (39.0-53.0) % ABG pH (7.35-7.45) ABG pO2 (83-108) mmHg ABG HCO3 (21-25) mmol/L ABG Total CO2 (19-24) mmol/L ABG O2 Saturation (94-97) % Carbon Dioxide (22-30) mmol/L Glucose (74-99) mg/dL POC Glucose (mg/dL) 123 H 114 H 156 H (75-99) mg/dL Calcium (8.4-10.2) mg/dL Total Protein (6.3-8.2) g/dL Albumin (3.5-5.0) g/dL 05/28/20 05/28/20 05/28/20 Range/Units 18:29 21:12 22:01 RBC (4.30-5.90) m/uL Hgb (13.0-17.5) gm/dL Hct (39.0-53.0) % ABG pH (7.35-7.45) ABG pO2 (83-108) mmHg ABG HCO3 (21-25) mmol/L ABG Total CO2 (19-24) mmol/L ABG O2 Saturation (94-97) % Carbon Dioxide (22-30) mmol/L Glucose (74-99) mg/dL POC Glucose (mg/dL) 136 H 131 H 135 H (75-99) mg/dL Calcium (8.4-10.2) mg/dL Total Protein (6.3-8.2) g/dL Albumin (3.5-5.0) g/dL 05/28/20 05/29/20 05/29/20 Range/Units 22:52 01:15 02:15 RBC (4.30-5.90) m/uL Hgb (13.0-17.5) gm/dL Hct (39.0-53.0) % ABG pH (7.35-7.45) ABG pO2 (83-108) mmHg ABG HCO3 (21-25) mmol/L ABG Total CO2 (19-24) mmol/L ABG O2 Saturation (94-97) % Carbon Dioxide (22-30) mmol/L Glucose (74-99) mg/dL POC Glucose (mg/dL) 131 H 170 H 180 H (75-99) mg/dL Calcium (8.4-10.2) mg/dL Total Protein (6.3-8.2) g/dL Albumin (3.5-5.0) g/dL 05/29/20 05/29/20 05/29/20 Range/Units 03:05 04:20 04:20 RBC 2.95 L (4.30-5.90) m/uL Hgb 9.0 L (13.0-17.5) gm/dL Hct 26.3 L (39.0-53.0) % ABG pH (7.35-7.45) ABG pO2 (83-108) mmHg ABG HCO3 (21-25) mmol/L ABG Total CO2 (19-24) mmol/L ABG O2 Saturation (94-97) % Carbon Dioxide 32 H (22-30) mmol/L Glucose 151 H (74-99) mg/dL POC Glucose (mg/dL) 166 H (75-99) mg/dL Calcium 8.1 L (8.4-10.2) mg/dL Total Protein 4.8 L (6.3-8.2) g/dL Albumin 2.3 L (3.5-5.0) g/dL 05/29/20 05/29/20 05/29/20 Range/Units 04:21 05:19 05:30 RBC (4.30-5.90) m/uL Hgb (13.0-17.5) gm/dL Hct (39.0-53.0) % ABG pH 7.50 H (7.35-7.45) ABG pO2 79 L (83-108) mmHg ABG HCO3 31 H (21-25) mmol/L ABG Total CO2 32 H (19-24) mmol/L ABG O2 Saturation 97.3 H (94-97) % Carbon Dioxide (22-30) mmol/L Glucose (74-99) mg/dL POC Glucose (mg/dL) 162 H 142 H (75-99) mg/dL Calcium (8.4-10.2) mg/dL Total Protein (6.3-8.2) g/dL Albumin (3.5-5.0) g/dL Microbiology - Last 24 Hours (Table) 05/26/20 09:53 Blood Culture - Preliminary Blood No Growth after 48 hours 05/25/20 22:00 Gram Stain - Final Sputum Sputum Culture - Final Assessment and Plan Plan: 1 Coronary artery disease status post three-vessel coronary artery bypass grafting. Postoperative day #7 2 Acute hypoxemic respiratory failure requiring reintubation and placed back on the mechanical ventilator on 05/25/2020, unexpected 3 Ischemic cardiomyopathy with ejection fraction 45-50% 4 Hyperlipidemia 5 Diabetes mellitus, currently on insulin drip at 4 units an hour 6 Chronic bronchial asthma 7 History of chronic tobacco dependence 8 Recent CVA in November 2019 with ongoing altered mental status 9 Hypertension, history of 10 insertion of a PEG tube for enteral feeding and nutritional support and the patient is currently NPO still nothing by mouth still nothing by mouth 11 questionable sternal wound infection as the patient has some drainage, the drainage is serous at this point in time. plan Give the patient is sedation holiday and assess his mental status Check weaning parameters and assess candidacy for further weaning. Vent support is minimal at this point in time Chest x-ray from this morning is showing some pulmonary vessel congestion. He will benefit from Lasix. I will give him a dose of 40 mg IV push and I would on this with the cardiothoracic team. Start enteral feeding for nutritional support. Dietary consultation is been obtained. Increase Levemir up to 25U day and cut down the insulin drip and monitor the blood sugar Continue Levaquin continue supportive care Critically care evaluation more than 30 minutes. Time with Patient: Greater than 30
[2020-05-29] MEDS ORDERED: INSULIN DETEMIR (LEVEMIR) 100 UNIT/ML SYR SQ SCH (07:00)
[2020-05-29 07:08] LABS: Glucose,Whole Blood 123 mg/dL (75-99)
--- NOTE | 2020-05-29 08:06 | P.PN ---
Subjective Progress Note Date: 05/29/20 Principal diagnosis: Unstable angina, severe calcific 3 vessel coronary artery disease. Previous medical history of recent stroke in November 2019 with continued short-term memory loss and impulsivity, cardiomyopathy with EF 45-50%, hypertension, hyperlipidemia, insulin-dependent diabetes with preoperative hemoglobin A1c 8%, asthma, previous tobacco dependence with preoperative FEV1 75% of predicted, and family history of premature coronary artery disease with father diagnosed less than 60 years old. POD #7 coronary artery bypass grafting 3 with the left internal mammary artery to the left anterior descending artery, reverse saphenous vein graft off the aorta to the first obtuse marginal artery and the posterior descending artery with endoscopic vein harvesting of the left lower extremity greater saphenous vein, clip ligation of the left atrial appendage with a 35 mm AtriClip and intraoperative transesophageal echocardiogram. Postoperative acute blood loss anemia and thrombocytopenia, expected outcomes given hemodilution and cardiopulmonary bypass pump Acute hypoxic respiratory failure requiring re-intubation, unexpected, unknown cause The patient is currently laying in bed mechanically ventilated and sedated in the intensive care unit. Remains in sinus rhythm, hemodynamically stable. PEG tube placed yesterday, TF to resume today. Temp has remained in the 100F range, urine/sputum/blood cultures remain negative, IV levaquin initiated yesterday. Patient does open eyes and withdraws to painful stimulation bilaterally, currently on minimal sedation. Objective - Vital Signs Vital signs: Vital Signs Temp 100.8 F H 05/29/20 00:00 Pulse 63 05/29/20 07:00 Resp 16 05/29/20 07:00 BP 127/62 05/29/20 07:00 Pulse Ox 99 05/29/20 07:00 Intake & Output 05/28/20 05/29/20 05/29/20 18:59 06:59 18:59 Intake Total 523.254 408.128 20 Output Total 1330 495 45 Balance -806.746 -86.872 -25 Weight 86.9 kg 88.3 kg Intake: IV 310 220 20 LR 260 220 20 Intake, IV Titration 183.254 188.128 Amount Insulin Regular 100 unit 95.876 34.424 In Sodium Chloride 0.9% 100 ml @ Per Protocol IV .Q0M [facility] Rx#:[id number] propofoL 1,000 mg In 87.378 153.704 Empty Bag 1 bag @ Titrate IV .Q0M [facility] Rx#: [id number] Other 30 Output: Urine 1330 495 45 Other: Voiding Method Indwelling Catheter Indwelling Catheter ABP, PAP, CO, CI - Last Documented Arterial Blood Pressure 121/45 Pulmonary Artery Pressure 32/15 Cardiac Output 4.4 Cardiac Index 2.2 - Constitutional General appearance: Present: no acute distress - Respiratory Details: Lungs sounds diminished bilaterally. Respirations even, nonlabored on mechanical ventilation. Current vent settings FiO2 25%, TV 450, RR 16, PEEP 5. ABGs this AM on those settings 7.5/40/79/31/97%/7.8. 8.0 ETT present, 22 @ the lip. - Cardiovascular Details: S1, S2 present. Regular rate and rhythm, sinus rhythm on telemetry with heart rate in the 60-70s. Sternum stable. Ventricular epicardial pacemaker wire present, grounded. Left radial arterial line present. Palpable peripheral pulses bilaterally. No edema present. Heart hugger in place, antiembolism stockings, SCDs present. - Gastrointestinal Gastrointestinal Comment(s): Abdomen soft, nontender, nondistended. Active bowel sounds present 4 quadrants. PEG tube in place, capped. Positive BM 05/26/20 per nursing - Genitourinary Genitourinary Comment(s): Hearn present draining clear yellow urine. Output 30-50 mL per hour overnight, 900 mL diuresis after IV lasix given yesterday, 1780 mL in the last 24 hours - Integumentary Integumentary Comment(s): Skin is warm and dry. Anterior chest incision well approximated, small amount serous drainage present, no purulent drainage. Left lower extremity EVH site well approximated without redness or drainage. - Neurologic Neurologic Comment(s): sedated on mechanical ventilation, opens eyes, withdraws to painful stimuli, PERRLA 3 mm - Musculoskeletal Musculoskeletal: Present: strength equal bilaterally - Psychiatric Psychiatric Comment(s): currently sedated with minimal propofol - Allied health notes Allied health notes reviewed: nursing - Labs CBC & Chem 7: 05/29/20 04:20 05/29/20 04:20 Labs: Abnormal Lab Results - Last 24 Hours (Table) 05/28/20 05/28/20 05/28/20 Range/Units 08:03 09:58 12:31 RBC (4.30-5.90) m/uL Hgb (13.0-17.5) gm/dL Hct (39.0-53.0) % ABG pH (7.35-7.45) ABG pO2 (83-108) mmHg ABG HCO3 (21-25) mmol/L ABG Total CO2 (19-24) mmol/L ABG O2 Saturation (94-97) % Carbon Dioxide (22-30) mmol/L Glucose (74-99) mg/dL POC Glucose (mg/dL) 168 H 126 H 102 H (75-99) mg/dL Calcium (8.4-10.2) mg/dL Total Protein (6.3-8.2) g/dL Albumin (3.5-5.0) g/dL 05/28/20 05/28/20 05/28/20 Range/Units 13:55 15:06 17:07 RBC (4.30-5.90) m/uL Hgb (13.0-17.5) gm/dL Hct (39.0-53.0) % ABG pH (7.35-7.45) ABG pO2 (83-108) mmHg ABG HCO3 (21-25) mmol/L ABG Total CO2 (19-24) mmol/L ABG O2 Saturation (94-97) % Carbon Dioxide (22-30) mmol/L Glucose (74-99) mg/dL POC Glucose (mg/dL) 123 H 114 H 156 H (75-99) mg/dL Calcium (8.4-10.2) mg/dL Total Protein (6.3-8.2) g/dL Albumin (3.5-5.0) g/dL 05/28/20 05/28/20 05/28/20 Range/Units 18:29 21:12 22:01 RBC (4.30-5.90) m/uL Hgb (13.0-17.5) gm/dL Hct (39.0-53.0) % ABG pH (7.35-7.45) ABG pO2 (83-108) mmHg ABG HCO3 (21-25) mmol/L ABG Total CO2 (19-24) mmol/L ABG O2 Saturation (94-97) % Carbon Dioxide (22-30) mmol/L Glucose (74-99) mg/dL POC Glucose (mg/dL) 136 H 131 H 135 H (75-99) mg/dL Calcium (8.4-10.2) mg/dL Total Protein (6.3-8.2) g/dL Albumin (3.5-5.0) g/dL 05/28/20 05/29/20 05/29/20 Range/Units 22:52 01:15 02:15 RBC (4.30-5.90) m/uL Hgb (13.0-17.5) gm/dL Hct (39.0-53.0) % ABG pH (7.35-7.45) ABG pO2 (83-108) mmHg ABG HCO3 (21-25) mmol/L ABG Total CO2 (19-24) mmol/L ABG O2 Saturation (94-97) % Carbon Dioxide (22-30) mmol/L Glucose (74-99) mg/dL POC Glucose (mg/dL) 131 H 170 H 180 H (75-99) mg/dL Calcium (8.4-10.2) mg/dL Total Protein (6.3-8.2) g/dL Albumin (3.5-5.0) g/dL 05/29/20 05/29/20 05/29/20 Range/Units 03:05 04:20 04:20 RBC 2.95 L (4.30-5.90) m/uL Hgb 9.0 L (13.0-17.5) gm/dL Hct 26.3 L (39.0-53.0) % ABG pH (7.35-7.45) ABG pO2 (83-108) mmHg ABG HCO3 (21-25) mmol/L ABG Total CO2 (19-24) mmol/L ABG O2 Saturation (94-97) % Carbon Dioxide 32 H (22-30) mmol/L Glucose 151 H (74-99) mg/dL POC Glucose (mg/dL) 166 H (75-99) mg/dL Calcium 8.1 L (8.4-10.2) mg/dL Total Protein 4.8 L (6.3-8.2) g/dL Albumin 2.3 L (3.5-5.0) g/dL 05/29/20 05/29/20 05/29/20 Range/Units 04:21 05:19 05:30 RBC (4.30-5.90) m/uL Hgb (13.0-17.5) gm/dL Hct (39.0-53.0) % ABG pH 7.50 H (7.35-7.45) ABG pO2 79 L (83-108) mmHg ABG HCO3 31 H (21-25) mmol/L ABG Total CO2 32 H (19-24) mmol/L ABG O2 Saturation 97.3 H (94-97) % Carbon Dioxide (22-30) mmol/L Glucose (74-99) mg/dL POC Glucose (mg/dL) 162 H 142 H (75-99) mg/dL Calcium (8.4-10.2) mg/dL Total Protein (6.3-8.2) g/dL Albumin (3.5-5.0) g/dL 05/29/20 Range/Units 07:06 RBC (4.30-5.90) m/uL Hgb (13.0-17.5) gm/dL Hct (39.0-53.0) % ABG pH (7.35-7.45) ABG pO2 (83-108) mmHg ABG HCO3 (21-25) mmol/L ABG Total CO2 (19-24) mmol/L ABG O2 Saturation (94-97) % Carbon Dioxide (22-30) mmol/L Glucose (74-99) mg/dL POC Glucose (mg/dL) 123 H (75-99) mg/dL Calcium (8.4-10.2) mg/dL Total Protein (6.3-8.2) g/dL Albumin (3.5-5.0) g/dL Microbiology - Last 24 Hours (Table) 05/26/20 09:53 Blood Culture - Preliminary Blood No Growth after 48 hours 05/25/20 22:00 Gram Stain - Final Sputum Sputum Culture - Final - Imaging and Cardiology Chest x-ray: image reviewed Assessment and Plan Assessment: 1. Unstable angina, severe calcific 3 vessel coronary artery disease, status post three-vessel CABG 2. Recent stroke in November 2019 with continued short-term memory loss and impulsivity 3. Cardiomyopathy with EF 45-50% 4. Hypertension 5. Hyperlipidemia 6. Insulin-dependent diabetes with preoperative hemoglobin A1c 8% 7. Asthma 8. Previous tobacco dependence with preoperative FEV1 75% of predicted 9. Family history of premature coronary artery disease with father diagnosed less than 60 years old. 10. Postoperative acute blood loss anemia and thrombocytopenia, expected 11. Acute hypoxic respiratory failure requiring reintubation, unexpected 12. Metabolic alkalosis, hypokalemia Plan: 1. Continue aspirin, statin, Plavix, beta sarah therapy. 2. Ventilator managment, bronchodilators per pulmonology. Keep sedation as li ght as possible, may attempt weaning trial today 3. Will monitor daily labs and x-rays. Electrolyte replacement per protocol, replace potassium to keep K>4.2. Lasix 40 mg IVP x 1 today 4. GI/DVT prophylaxis 5. Pain control with current medication regimen 6. Insulin management per Dr. Tafoya 7. Continue Hearn catheter for another 24 hours. 8. Strict accurate intake and output, daily weight 9. Resume tube feedings 10. Will discontinue epicardial pacer wires 11. Social work/case management on consult for discharge planning, patient likely will need rehab at discharge 13. More recommendations to follow based on patient's progress Time with Patient: Greater than 30
--- NOTE | 2020-05-29 08:22 | XR ---
EXAMINATION TYPE: XR chest 1V portable DATE OF EXAM: 05/29/2020 Comparison: 05/28/2020 Clinical History: 74 year-old male tube placement Findings: ET tube is satisfactory. Dobbhoff tube removed in the interval. Lung volumes are diminished. Perihila r interstitial opacity is increased. Continued retrocardiac and left basilar opacity. Median sternoto my wires. Impression: 1. Dobbhoff tube removed in the interval. 2. Hypoventilatory exam. Unable to exclude new pulmonary vascular congestion. 3. Continued small left effusion with left basilar and retrocardiac atelectasis and/or consolidation.
[2020-05-29] MEDS: INSULIN ASPART (NovoLOG) 100 UNIT/ML VIAL SQ SCH ×4 (09:13→20:10)
[2020-05-29] MEDS: METOPROLOL TARTRATE 25 MG TAB NG-TUBE SCH ×2 (09:14→20:24)
[2020-05-29] MEDS: CHLORHEXIDINE GLUCONATE 15 ML CUP MUCOUS MEM SCH ×2 (09:14→20:11)
[2020-05-29] MEDS: CLOPIDOGREL 75 MG TAB PO SCH (09:14)
[2020-05-29] MEDS: ATORVASTATIN 40 MG TAB PO SCH (09:14)
[2020-05-29] MEDS: ASPIRIN 325 MG TAB NG-TUBE SCH (09:14)
[2020-05-29] MEDS: QUEtiapine 50 MG TAB PO SCH ×2 (09:15→20:24)
[2020-05-29] MEDS: PANTOPRAZOLE 40 MG/10 ML VIAL IVP SCH (09:15)
[2020-05-29] MEDS: polyethylene glycoL 3350 17 GM POWD.PACK PO SCH (09:15)
[2020-05-29] MEDS: LEVOFLOXACIN 500MG-D5W PMX 500 MG in DEXTROSE/WATER 1 100ML.BAG IVPB SCH (09:24)
[2020-05-29 09:48] LABS: Glucose,Whole Blood 147 mg/dL (75-99)
[2020-05-29] MEDS ORDERED: DEXMEDETOMIDINE/0.9% NACL(PMX) 400 MCG in EMPTY BAG 1 BAG IV SCH (10:30)
[2020-05-29 12:04] LABS: Glucose,Whole Blood 198 mg/dL (75-99)
--- NOTE | 2020-05-29 12:26 | PN ---
PROGRESS NOTE Mr. Perez is status post aortocoronary bypass surgery. He is in sinus rhythm, comfortable, still on a ventilator. He had difficulty with respiratory issues and was re-intubated. Patient also has some neurological issues at this time. It is unclear whether he is having some encephalopathy, but there are remote deficits that there was significant amount of confusion. However, at this time, patient is on a ventilator. He has had history of multiple comorbid conditions. He was re-intubated. From a cardiac standpoint I am recommending that we continue his current medical regimen. No other intervention is necessary. Patient had a PEG tube placed yesterday. He may require a tracheostomy also if his condition from a respiratory standpoint does not improve. Prognosis remains guarded. We will continue current medical regimen. JANELL / IJN: [id number] /
--- NOTE | 2020-05-29 12:33 | P.PN ---
Subjective Progress Note Date: 05/29/20 Marcos Perez is a 74 yo M with PMH of CAD, hx CVA with residual dementia, T2DM, HTN, HLD who is admitted s/p CABG. He is doing well today, hemodynamically stable and extubated, upright in chair. His sugars are controlled on insulin drip. Pt remains confused and agitated this morning, unable to remember the reason he is hospitalized and trying to remove lines and refusing oral medications. He has no specific concerns for me today. 05/24/2020 Seroquel initiated yesterday. solid waste management engineer remains at bedside Patient's agitation/combativeness /impulsiveness improving-fluctuates. No further Haldol/Ativan since yesterday. Mediastinal chest tube removed. Currently on Cleveprex drip. Blood sugars controlled. Chest x-ray reporting continued mild pulmonary vascular congestion with slight improvement in bilateral base aeration. Prominent air persists below the right hemidiaphragm. Maintaining O2 sats in the 90s on 2 L nasal cannula. Afebrile, WBC 12.6. 05/25/2020 He remains on seroquel and precedex drip, he has been intermittently agitated pulling at lines and confused. Pt's vitals and glucose are well controlled today. CT head repeated and no interval change. Pt unable to take PO nutrition and enteral feedings started. 05/26/2020 Re-intubated during the night, FiO2 recently decreased to 25%/+5 of PEEP. ABGs noted. Chest x-ray reported improving lung markings with left base infiltrate.Continues on diprovan and small dose of Levophed drips. Tenacious secretions from endotracheal tube. Sputum culture pending. Afebrile. Urine culture pending. 05/29/20 remains vent dependent, FiO2 25%/+5 of PEEP. Continues on diprovan drip. Chest x-ray reporting continued small left effusion with left basilar retrocardiac atelectasis and/or consolidation. IV Levaquin initiated yesterday. Received a dose of Lasix yesterday with 24-hour I&O reflecting a negative fluid balance. T-max 100.1. Covid results pending. Urine and sputum cultures reporting no growth, blood cultures pending. Staff reports midsternal incision site with minimal serous drainage. Telemetry sinus rhythm. Blood sugars controlled on Levemir. PEG tube placed yesterday, tolerated procedure well. Resuming tube feeding today. Objective - Vital Signs Vital signs: Vital Signs Temp 100 F H 05/29/20 08:00 Pulse 68 05/29/20 11:00 Resp 16 05/29/20 11:00 BP 127/62 05/29/20 07:00 Pulse Ox 97 05/29/20 11:00 Intake & Output 05/28/20 05/29/20 05/29/20 18:59 06:59 18:59 Intake Total 523.254 408.128 303.065 Output Total 1330 495 890 Balance -806.746 -86.872 -586.935 Weight 86.9 kg 88.3 kg Intake: IV 310 220 70 LR 260 220 70 Intake, IV Titration 183.254 188.128 53.065 Amount Insulin Regular 100 unit 95.876 34.424 In Sodium Chloride 0.9% 100 ml @ Per Protocol IV .Q0M [facility] Rx#:[id number] propofoL 1,000 mg In 87.378 153.704 53.065 Empty Bag 1 bag @ Titrate IV .Q0M [facility] Rx#: [id number] Tube Feeding 150 Other 30 30 Output: Urine 1330 495 890 Other: Voiding Method Indwelling Catheter Indwelling Catheter Indwelling Catheter ABP, PAP, CO, CI - Last Documented Arterial Blood Pressure 146/56 Pulmonary Artery Pressure 32/15 Cardiac Output 4.4 Cardiac Index 2.2 - Exam General: sedated and intubated on mechanical ventilation Eyes: PERRL, conjunctiva normal HENT: normocephalic, atraumatic, OG tube present. Neck: supple, no JVD Lungs: normal respiratory effort, scattered rhonchi, fine bibasilar crackles CV: Regular rate and rhythm, no murmur. Peripheral pulses 2+ Abdomen: soft, nondistended, no organomegaly, PEG tube present. Skin: warm and dry. Neuro: Unable to assess this time secondary to patient intubated and sedated. - Labs CBC & Chem 7: 05/29/20 04:20 05/29/20 04:20 Labs: Abnormal Lab Results - Last 24 Hours (Table) 05/28/20 05/28/20 05/28/20 Range/Units 12:31 13:55 15:06 RBC (4.30-5.90) m/uL Hgb (13.0-17.5) gm/dL Hct (39.0-53.0) % ABG pH (7.35-7.45) ABG pO2 (83-108) mmHg ABG HCO3 (21-25) mmol/L ABG Total CO2 (19-24) mmol/L ABG O2 Saturation (94-97) % Carbon Dioxide (22-30) mmol/L Glucose (74-99) mg/dL POC Glucose (mg/dL) 102 H 123 H 114 H (75-99) mg/dL Calcium (8.4-10.2) mg/dL Total Protein (6.3-8.2) g/dL Albumin (3.5-5.0) g/dL 05/28/20 05/28/20 05/28/20 Range/Units 17:07 18:29 21:12 RBC (4.30-5.90) m/uL Hgb (13.0-17.5) gm/dL Hct (39.0-53.0) % ABG pH (7.35-7.45) ABG pO2 (83-108) mmHg ABG HCO3 (21-25) mmol/L ABG Total CO2 (19-24) mmol/L ABG O2 Saturation (94-97) % Carbon Dioxide (22-30) mmol/L Glucose (74-99) mg/dL POC Glucose (mg/dL) 156 H 136 H 131 H (75-99) mg/dL Calcium (8.4-10.2) mg/dL Total Protein (6.3-8.2) g/dL Albumin (3.5-5.0) g/dL 05/28/20 05/28/20 05/29/20 Range/Units 22:01 22:52 01:15 RBC (4.30-5.90) m/uL Hgb (13.0-17.5) gm/dL Hct (39.0-53.0) % ABG pH (7.35-7.45) ABG pO2 (83-108) mmHg ABG HCO3 (21-25) mmol/L ABG Total CO2 (19-24) mmol/L ABG O2 Saturation (94-97) % Carbon Dioxide (22-30) mmol/L Glucose (74-99) mg/dL POC Glucose (mg/dL) 135 H 131 H 170 H (75-99) mg/dL Calcium (8.4-10.2) mg/dL Total Protein (6.3-8.2) g/dL Albumin (3.5-5.0) g/dL 05/29/20 05/29/20 05/29/20 Range/Units 02:15 03:05 04:20 RBC 2.95 L (4.30-5.90) m/uL Hgb 9.0 L (13.0-17.5) gm/dL Hct 26.3 L (39.0-53.0) % ABG pH (7.35-7.45) ABG pO2 (83-108) mmHg ABG HCO3 (21-25) mmol/L ABG Total CO2 (19-24) mmol/L ABG O2 Saturation (94-97) % Carbon Dioxide (22-30) mmol/L Glucose (74-99) mg/dL POC Glucose (mg/dL) 180 H 166 H (75-99) mg/dL Calcium (8.4-10.2) mg/dL Total Protein (6.3-8.2) g/dL Albumin (3.5-5.0) g/dL 05/29/20 05/29/20 05/29/20 Range/Units 04:20 04:21 05:19 RBC (4.30-5.90) m/uL Hgb (13.0-17.5) gm/dL Hct (39.0-53.0) % ABG pH (7.35-7.45) ABG pO2 (83-108) mmHg ABG HCO3 (21-25) mmol/L ABG Total CO2 (19-24) mmol/L ABG O2 Saturation (94-97) % Carbon Dioxide 32 H (22-30) mmol/L Glucose 151 H (74-99) mg/dL POC Glucose (mg/dL) 162 H 142 H (75-99) mg/dL Calcium 8.1 L (8.4-10.2) mg/dL Total Protein 4.8 L (6.3-8.2) g/dL Albumin 2.3 L (3.5-5.0) g/dL 05/29/20 05/29/20 05/29/20 Range/Units 05:30 07:06 09:12 RBC (4.30-5.90) m/uL Hgb (13.0-17.5) gm/dL Hct (39.0-53.0) % ABG pH 7.50 H (7.35-7.45) ABG pO2 79 L (83-108) mmHg ABG HCO3 31 H (21-25) mmol/L ABG Total CO2 32 H (19-24) mmol/L ABG O2 Saturation 97.3 H (94-97) % Carbon Dioxide (22-30) mmol/L Glucose (74-99) mg/dL POC Glucose (mg/dL) 123 H 147 H (75-99) mg/dL Calcium (8.4-10.2) mg/dL Total Protein (6.3-8.2) g/dL Albumin (3.5-5.0) g/dL Microbiology - Last 24 Hours (Table) 05/26/20 09:53 Blood Culture - Preliminary Blood No Growth after 48 hours 05/25/20 22:00 Gram Stain - Final Sputum Sputum Culture - Final Assessment and Plan Assessment: (1) acute hypoxic respiratory failure, requiring reintubation (2) Status post coronary artery bypass graft Current Visit: Yes Status: Acute Code(s): Z95.1 - PRESENCE OF AORTOCORONARY BYPASS GRAFT SNOMED Code(s): 409204250 (3)Triple vessel coronary artery disease Current Visit: Yes Status: Acute Code(s): I25.10 - ATHSCL HEART DISEASE OF [place] CORONARY ARTERY W/O ANG PCTRS SNOMED Code(s): 574473174 (4) History of CVA with residual deficit Current Visit: Yes Status: Acute Code(s): I69.30 - UNSPECIFIED SEQUELAE OF CEREBRAL INFARCTION SNOMED Code(s): 201593752 (5) Type 2 diabetes mellitus Current Visit: Yes Status: Acute Code(s): E11.9 - TYPE 2 DIABETES MELLITUS WITHOUT COMPLICATIONS SNOMED Code(s): 61551649 (6) Dementia Current Visit: Yes Status: Acute Code(s): F03.90 - UNSPECIFIED DEMENTIA WITHOUT BEHAVIORAL DISTURBANCE SNOMED Code(s): 31396071 (7) Cerebral infarction, remote, resolved Current Visit: No Status: Acute Code(s): Z86.73 - PRSNL HX OF TIA (TIA), AND CEREB INFRC W/O RESID DEFICITS SNOMED Code(s): 756682192 (8) PEG tube placement Plan: Continue current medication regime ,monitoring and symptomatic treatment. Enteral feedings, strict aspiration precautions. Resuming tube feeds. Possible sternal wound infection, Maintain tight control of blood sugars with Levemir dose increased -close monitoring of Accu-Cheks. Continue on Levaquin. Sedation holiday pending as per cardiovascular surgeon .Prognosis guarded given multiple complex medical issues. The impression and plan of care has been dictated as directed. : I performed a history and examination of this patient, discussed the same with the dictator. I agree with the dictator's note ,documented as a scribe. Any additional findings or plans will be noted.
--- NOTE | 2020-05-29 12:43 | P.PN ---
Subjective Progress Note Date: 05/29/20 CHIEF COMPLAINT: Patient is status post CABG HISTORY OF PRESENT ILLNESS: Patient remains in the ICU. He is intubated and sedated. Patient had PEG tube placed yesterday by Dr. Zamora. He has been started on bolus tube feedings. He is having difficulty being weaned from the vent. And will possibly need to have tracheostomy placed. Patient had temporal 100.8. WBC 7.2 hemoglobin 9.0 PHYSICAL EXAM: VITAL SIGNS: Reviewed. GENERAL: Well-developed in no acute distress. HEENT: No sclera icterus. Extraocular movements grossly intact. Moist buccal mucosa. Head is atraumatic, normocephalic. ABDOMEN: Soft. Nondistended. Nontender. NEUROLOGIC: Intubated and sedated ASSESSMENT: 1. Coronary artery disease status post three-vessel CABG 2. Severe protein calorie malnutrition status post PEG tube placement PLAN: -Continue supportive care -Continue tube feedings per dietitian recommendations Physician Plate Mounter note has been reviewed by physician. Signing provider agrees with the documented findings, assessment, and plan of care. Objective - Vital Signs Vital signs: Vital Signs Temp 99.1 F 05/29/20 12:00 Pulse 63 05/29/20 12:26 Resp 10 L 05/29/20 12:00 BP 127/62 05/29/20 07:00 Pulse Ox 95 05/29/20 12:00 Intake & Output 05/28/20 05/29/20 05/29/20 18:59 06:59 18:59 Intake Total 523.254 408.128 496.642 Output Total 3261 764 3784 Balance -806.746 -86.872 -543.358 Weight 86.9 kg 88.3 kg Intake: IV 310 220 90 LR 260 220 90 Intake, IV Titration 183.254 188.128 76.642 Amount Dexmedetomidine/0.9% NaCl 11.038 (Pmx) 400 mcg In Empty Bag 1 bag @ Titrate IV . Q0M [facility] Rx#:[id number] Insulin Regular 100 unit 95.876 34.424 In Sodium Chloride 0.9% 100 ml @ Per Protocol IV .Q0M [facility] Rx#:[id number] propofoL 1,000 mg In 87.378 153.704 65.604 Empty Bag 1 bag @ Titrate IV .Q0M [facility] Rx#: [id number] Tube Feeding 300 Other 30 30 Output: Urine 2142 336 6708 Other: Voiding Method Indwelling Catheter Indwelling Catheter Indwelling Catheter ABP, PAP, CO, CI - Last Documented Arterial Blood Pressure 90/43 Pulmonary Artery Pressure 32/15 Cardiac Output 4.4 Cardiac Index 2.2 - Labs CBC & Chem 7: 05/29/20 04:20 05/29/20 04:20 Labs: Abnormal Lab Results - Last 24 Hours (Table) 05/28/20 05/28/20 05/28/20 Range/Units 13:55 15:06 17:07 RBC (4.30-5.90) m/uL Hgb (13.0-17.5) gm/dL Hct (39.0-53.0) % ABG pH (7.35-7.45) ABG pO2 (83-108) mmHg ABG HCO3 (21-25) mmol/L ABG Total CO2 (19-24) mmol/L ABG O2 Saturation (94-97) % Carbon Dioxide (22-30) mmol/L Glucose (74-99) mg/dL POC Glucose (mg/dL) 123 H 114 H 156 H (75-99) mg/dL Calcium (8.4-10.2) mg/dL Total Protein (6.3-8.2) g/dL Albumin (3.5-5.0) g/dL 05/28/20 05/28/20 05/28/20 Range/Units 18:29 21:12 22:01 RBC (4.30-5.90) m/uL Hgb (13.0-17.5) gm/dL Hct (39.0-53.0) % ABG pH (7.35-7.45) ABG pO2 (83-108) mmHg ABG HCO3 (21-25) mmol/L ABG Total CO2 (19-24) mmol/L ABG O2 Saturation (94-97) % Carbon Dioxide (22-30) mmol/L Glucose (74-99) mg/dL POC Glucose (mg/dL) 136 H 131 H 135 H (75-99) mg/dL Calcium (8.4-10.2) mg/dL Total Protein (6.3-8.2) g/dL Albumin (3.5-5.0) g/dL 12/12/1005/29/20 05/29/20 Range/Units 22:52 01:15 02:15 RBC (4.30-5.90) m/uL Hgb (13.0-17.5) gm/dL Hct (39.0-53.0) % ABG pH (7.35-7.45) ABG pO2 (83-108) mmHg ABG HCO3 (21-25) mmol/L ABG Total CO2 (19-24) mmol/L ABG O2 Saturation (94-97) % Carbon Dioxide (22-30) mmol/L Glucose (74-99) mg/dL POC Glucose (mg/dL) 131 H 170 H 180 H (75-99) mg/dL Calcium (8.4-10.2) mg/dL Total Protein (6.3-8.2) g/dL Albumin (3.5-5.0) g/dL 05/29/20 05/29/20 05/29/20 Range/Units 03:05 04:20 04:20 RBC 2.95 L (4.30-5.90) m/uL Hgb 9.0 L (13.0-17.5) gm/dL Hct 26.3 L (39.0-53.0) % ABG pH (7.35-7.45) ABG pO2 (83-108) mmHg ABG HCO3 (21-25) mmol/L ABG Total CO2 (19-24) mmol/L ABG O2 Saturation (94-97) % Carbon Dioxide 32 H (22-30) mmol/L Glucose 151 H (74-99) mg/dL POC Glucose (mg/dL) 166 H (75-99) mg/dL Calcium 8.1 L (8.4-10.2) mg/dL Total Protein 4.8 L (6.3-8.2) g/dL Albumin 2.3 L (3.5-5.0) g/dL 05/29/20 05/29/20 05/29/20 Range/Units 04:21 05:19 05:30 RBC (4.30-5.90) m/uL Hgb (13.0-17.5) gm/dL Hct (39.0-53.0) % ABG pH 7.50 H (7.35-7.45) ABG pO2 79 L (83-108) mmHg ABG HCO3 31 H (21-25) mmol/L ABG Total CO2 32 H (19-24) mmol/L ABG O2 Saturation 97.3 H (94-97) % Carbon Dioxide (22-30) mmol/L Glucose (74-99) mg/dL POC Glucose (mg/dL) 162 H 142 H (75-99) mg/dL Calcium (8.4-10.2) mg/dL Total Protein (6.3-8.2) g/dL Albumin (3.5-5.0) g/dL 05/29/20 05/29/20 05/29/20 Range/Units 07:06 09:12 12:02 RBC (4.30-5.90) m/uL Hgb (13.0-17.5) gm/dL Hct (39.0-53.0) % ABG pH (7.35-7.45) ABG pO2 (83-108) mmHg ABG HCO3 (21-25) mmol/L ABG Total CO2 (19-24) mmol/L ABG O2 Saturation (94-97) % Carbon Dioxide (22-30) mmol/L Glucose (74-99) mg/dL POC Glucose (mg/dL) 123 H 147 H 198 H (75-99) mg/dL Calcium (8.4-10.2) mg/dL Total Protein (6.3-8.2) g/dL Albumin (3.5-5.0) g/dL Microbiology - Last 24 Hours (Table) 05/26/20 09:53 Blood Culture - Preliminary Blood No Growth after 72 hours 05/25/20 22:00 Gram Stain - Final Sputum Sputum Culture - Final
[2020-05-29 17:13] LABS: Glucose,Whole Blood 168 mg/dL (75-99)
[2020-05-29 20:17] LABS: Glucose,Whole Blood 224 mg/dL (75-99)
[2020-05-29] MEDS: SENNOSIDES-DOCUSATE SODIUM 1 EACH TAB PO SCH (20:23)
[2020-05-30] MEDS: LACTATED RINGERS 1,000 ML IV SCH ×2 (00:54→17:30)
[2020-05-30] MEDS: INSULIN ASPART (NovoLOG) 100 UNIT/ML VIAL SQ SCH ×4 (01:01→12:17)
[2020-05-30 01:11] LABS: Glucose,Whole Blood 231 mg/dL (75-99)
[2020-05-30] MEDS: IPRATROPIUM-ALBUTEROL 3 ML NEB INHALATION SCH ×5 (02:57→19:25)
[2020-05-30 04:01] LABS: Glucose,Whole Blood 243 mg/dL (75-99)
[2020-05-30] MEDS: HEPARIN SODIUM,PORCINE 5,000 UNIT/ML 1 ML VIAL SQ SCH ×3 (04:28→20:43)
[2020-05-30 04:45] LABS: ABG Base Excess 8.6 mmol/L; ABG HCO3 32 mmol/L (21-25); ABG Oxygen Saturation 98.3 % (94-97); ABG PCO2 41 mmHg (35-45); ABG PO2 90 mmHg (83-108); ABG TCO2 33 mmol/L (19-24); Allen Test Performed? Yes
[2020-05-30 04:55] LABS: Basophils % (A) 0 %; Eosinophils # (A) 0.3 k/uL (0-0.7); Eosinophils % (A) 4 %; HCT 26.8 % (39.0-53.0); HGB 8.7 gm/dL (13.0-17.5); Lymphocytes # (A) 1.1 k/uL (1.0-4.8); Lymphocytes % (A) 14 %; MCH 29.3 pg (25.0-35.0); MCHC 32.3 g/dL (31.0-37.0); MCV 90.8 fL (80.0-100.0); Mean Platelet Volume 8.8; Monocytes # (A) 0.4 k/uL (0-1.0); Monocytes % (A) 6 %; Neutrophils # (A) 5.5 k/uL (1.3-7.7); Neutrophils % (A) 74 %; Platelet Count 287 k/uL (150-450); RBC 2.95 m/uL (4.30-5.90); RDW 13.9 % (11.5-15.5); WBC 7.5 k/uL (3.8-10.6)
[2020-05-30 05:15] LABS: ALT 16 U/L (4-49); AST 26 U/L (17-59); African American GFR (CKD) >90 (>60 ml/min/1.73 sqM); Albumin 2.4 g/dL (3.5-5.0); Alkaline Phosphatase 51 U/L (38-126); Anion Gap 1 mmol/L; Blood Urea Nitrogen 19 mg/dL (9-20); Calcium 8.1 mg/dL (8.4-10.2); Carbon Dioxide 32 mmol/L (22-30); Chloride 100 mmol/L (98-107); Glucose 239 mg/dL (74-99); Magnesium 2.1 mg/dL (1.6-2.3); Non-African American GFR(CKD) >90 (>60 ml/min/1.73 sqM); Potassium 4.3 mmol/L (3.5-5.1); Sodium 133 mmol/L (137-145); Total Bilirubin 0.6 mg/dL (0.2-1.3)
[2020-05-30 06:39] LABS: Glucose,Whole Blood 189 mg/dL (75-99)
[2020-05-30] MEDS ORDERED: FUROSEMIDE 10 MG/ML 4 ML VIAL IV STA (06:42)
--- NOTE | 2020-05-30 06:44 | P.PN ---
Subjective Progress Note Date: 05/30/20 74-year-old male patient with post four-vessel bypass surgery. The patient is postop day #7 the patient underwent DOOLEY to LAD and saphenous vein graft to obtuse marginal and PDA. The patient has cardiomyopathy with ejection fraction of 45%. The patient has insulin-dependent diabetes mellitus and the patient has a previous history of CVA including with a short-term memory loss and impulsivity. Postextubation and currently the patient remains on a mechanical ventilator. His cardiac rhythm is sinus. He is hemodynamically stable. The patient remains on assist control mode of ventilation at the rate of 16 with a tidal volume of 450 and FiO2 of 25% and a PEEP of 5. He is post exhibition insertion and the patient will be started on feeding for nutritional support. Sedation is with propofol at a rate of 30mcg per KG per minute and insulin drip is running 4U units an hour for blood sugar control. Chest x-ray showing some retrocardiac infiltration and left basilar airspace disease. The patient is currently on Levaquin as an empiric antibiotic coverage. The patient is on DuoNeb nebulized treatments around the clock, aspirin and Plavix and the patient is also on metoprolol 25 mg by mouth twice a day. The sputum culture has shown no growth. Urine cultures no growth. A CAT scan of the brain that showed no evidence of any acute intracranial hemorrhage or midline shift. This is uncha nged compared to previous CT if the brain of November 2019. The blood gases from today showed a pH of 7.5 with a pCO2 of 40 and pO2 of 79. Peak airway pressures nonelevated at 22. X-ray showing cardiomegaly. If she was in a good location. The patient has pulmonary vessel congestion. There is also bowel loops on the right hemidiaphragm. There is also volume loss and the patient is smaller lung volumes. The patient was given a dose of Lasix 40 mg of push yesterday. His net fluid balance for yesterday is negative 255 mL. urine output is in order of 30-60 mL an hour. Patient is also on Seroquel 50 mg by mouth twice a day. He is on Levemir insulin was introduced for blood sugar control. on 05/30/2020, the patient remains sedated with propofol. He failed a sedation holiday yesterday and the same will be done today. He is currently off of a 4- 30 g per KG per minute and this is being gradually weaned off. I was told that his mental status was not appropriate even preoperatively and discomfort worse postop. In any rate, we are going to give the patient later sedation holiday. The patient is an assist-control mode at the rate of 16 with tidal volume of 450 FiO2 of 25% with a PEEP of 5. Chest x-ray showing pulmonary vascular congestion, small bilateral pleural effusions and cardiomegaly. ET tube is in a good location. No significant orotracheal secretions. Sternal wound is not draining at this point in time and it's dry and clean. His cardiac rhythm is sinus. He is on no pressors. He is receiving enteral feeding for nutritional support. They the patient is on Levemir at 25 units and the patient is also receiving psychiatric coverage. Blood sugars has been in the low 200s. Urine output is adequate for now. No fever. No other active issues for now. He remains on Levaquin. He was given a dose of Lasix yesterday 40 mg IV push and he is in a 0 fluid balance over the past 24 hours. Active site is clean and intact. No abdominal distention. He is postop day #8. He has also an umbilical hernia which is easily reducible.the blood gas from today showed a pH of 7.5 with a pCO2 of 41 and a pO2 of 90 and this was done and FiO2 of 25%. Airway pressures are not elevated. Objective - Vital Signs Vital signs: Vital Signs Temp 99.9 F H 05/30/20 04:00 Pulse 61 05/30/20 05:00 Resp 16 05/30/20 05:00 BP 148/68 05/30/20 05:00 Pulse Ox 98 05/30/20 05:00 Intake & Output 05/29/20 05/29/20 05/30/20 06:59 18:59 06:59 Intake Total 093.015 4312.516 882.074 Output Total 495 1430 455 Balance -86.872 -124.484 427.074 Weight 88.3 kg Intake: IV 220 140 180 LR 220 140 180 Intake, IV Titration 188.128 85.516 162.074 Amount Dexmedetomidine/0.9% NaCl 11.038 (Pmx) 400 mcg In Empty Bag 1 bag @ Titrate IV . Q0M LIYA Rx#:[id number] Insulin Regular 100 unit 34.424 In Sodium Chloride 0.9% 100 ml @ Per Protocol IV .Q0M LIYA Rx#:[id number] propofoL 1,000 mg In 153.704 74.478 162.074 Empty Bag 1 bag @ Titrate IV .Q0M LIYA Rx#: [id number] Tube Feeding 1050 450 Other 30 90 Output: Urine 495 1430 455 Other: Voiding Method Indwelling Catheter Indwelling Catheter Indwelling Catheter ABP, PAP, CO, CI - Last Documented Arterial Blood Pressure 103/42 Pulmonary Artery Pressure 32/15 Cardiac Output 4.4 Cardiac Index 2.2 - Exam GENERAL EXAM: Intubated, sedated 74-year-old gentleman, on the mechanical ventilator , orotracheal tube is in place. The patient has a PEG tube in place. He is currently sedated with propofol. Propofol is running at 30 g per KG per minute. HEAD: Normocephalic. EYES: Sluggish reaction of pupils, equal size. NOSE: Oral endotracheal and gastric tube secured in place. Clear with pink turbinates. THROAT: No erythema or exudates. NECK: No masses, no JVD. CHEST: Sternal dressing dry and intact. Serous drainage noted from incision. No chest wall deformity.no active drainage from the chest wall wound. No surrounding cellulitis at this point in time. LUNGS: Equal air entry with crackles in the bilateral posterior bases.. CVS: S1 and S2 normal with no audible murmur, regular rhythm. ABDOMEN: No hepatosplenomegaly, normal bowel sounds, no guarding or rigidity.the patient has an umbilical hernia. The patient also has a PEG tube in place SPINE: No scoliosis or deformity SKIN: No rashes CENTRAL NERVOUS SYSTEM: Tone is normal in all 4 extremities. EXTREMITIES: There is no peripheral edema. No clubbing, no cyanosis. Peripheral pulses are intact. - Labs CBC & Chem 7: 05/30/20 04:44 05/30/20 04:44 Labs: Abnormal Lab Results - Last 24 Hours (Table) 05/29/20 05/29/20 05/29/20 Range/Units 07:06 09:12 12:02 RBC (4.30-5.90) m/uL Hgb (13.0-17.5) gm/dL Hct (39.0-53.0) % ABG pH (7.35-7.45) ABG HCO3 (21-25) mmol/L ABG Total CO2 (19-24) mmol/L ABG O2 Saturation (94-97) % Sodium (137-145) mmol/L Carbon Dioxide (22-30) mmol/L Creatinine (0.66-1.25) mg/dL Glucose (74-99) mg/dL POC Glucose (mg/dL) 123 H 147 H 198 H (75-99) mg/dL Calcium (8.4-10.2) mg/dL Total Protein (6.3-8.2) g/dL Albumin (3.5-5.0) g/dL 05/29/20 05/29/20 05/30/20 Range/Units 17:12 20:05 00:59 RBC (4.30-5.90) m/uL Hgb (13.0-17.5) gm/dL Hct (39.0-53.0) % ABG pH (7.35-7.45) ABG HCO3 (21-25) mmol/L ABG Total CO2 (19-24) mmol/L ABG O2 Saturation (94-97) % Sodium (137-145) mmol/L Carbon Dioxide (22-30) mmol/L Creatinine (0.66-1.25) mg/dL Glucose (74-99) mg/dL POC Glucose (mg/dL) 168 H 224 H 231 H (75-99) mg/dL Calcium (8.4-10.2) mg/dL Total Protein (6.3-8.2) g/dL Albumin (3.5-5.0) g/dL 05/30/20 05/30/20 05/30/20 Range/Units 04:00 04:41 04:44 RBC 2.95 L (4.30-5.90) m/uL Hgb 8.7 L (13.0-17.5) gm/dL Hct 26.8 L (39.0-53.0) % ABG pH 7.50 H (7.35-7.45) ABG HCO3 32 H (21-25) mmol/L ABG Total CO2 33 H (19-24) mmol/L ABG O2 Saturation 98.3 H (94-97) % Sodium (137-145) mmol/L Carbon Dioxide (22-30) mmol/L Creatinine (0.66-1.25) mg/dL Glucose (74-99) mg/dL POC Glucose (mg/dL) 243 H (75-99) mg/dL Calcium (8.4-10.2) mg/dL Total Protein (6.3-8.2) g/dL Albumin (3.5-5.0) g/dL 05/30/20 Range/Units 04:44 RBC (4.30-5.90) m/uL Hgb (13.0-17.5) gm/dL Hct (39.0-53.0) % ABG pH (7.35-7.45) ABG HCO3 (21-25) mmol/L ABG Total CO2 (19-24) mmol/L ABG O2 Saturation (94-97) % Sodium 133 L (137-145) mmol/L Carbon Dioxide 32 H (22-30) mmol/L Creatinine 0.65 L (0.66-1.25) mg/dL Glucose 239 H (74-99) mg/dL POC Glucose (mg/dL) (75-99) mg/dL Calcium 8.1 L (8.4-10.2) mg/dL Total Protein 5.0 L (6.3-8.2) g/dL Albumin 2.4 L (3.5-5.0) g/dL Microbiology - Last 24 Hours (Table) 05/26/20 09:53 Blood Culture - Preliminary Blood No Growth after 72 hours Assessment and Plan Plan: 1 Coronary artery disease status post three-vessel coronary artery bypass grafting. Postoperative day #8. For now, the weaning has been complicated as the patient is having difficulties with altered mentation. He is becoming quite agitated and is having difficulties in coming off sedation. We'll given another trial today. Yesterday he was trialed on Precedex and he feels. He is cur rently back on propofol.he is also on Seroquel 50 mg by mouth twice a day. 2 Acute hypoxemic respiratory failure requiring reintubation and placed back on the mechanical ventilator on 05/25/2020, unexpected 3 Ischemic cardiomyopathy with ejection fraction 45-50% 4 Hyperlipidemia 5 Diabetes mellitus, currently on levemir nsulin in addition there is slight scale coverage 6 Chronic bronchial asthma 7 History of chronic tobacco dependence 8 Recent CVA in November 2019 with ongoing altered mental status 9 Hypertension, history of 10 insertion of a PEG tube for enteral feeding 11 questionable sternal wound infection as the patient has some drainage, the drainage is serous at this point in time. plan Give the patient is sedation holiday and assess his mental status this should be and he is extubation as long as the patient has adequate mentation. Check weaning parameters and assess candidacy for further weaning. Vent support is minimal at this point in time Chest x-ray from this morning is showing some pulmonary vessel congestion. I will give him a dose of 40 mg IV push and I would on this with the cardiothoracic team. enteral feeding for nutritional support. Dietary consultation is been obtained. Increase Levemir up to 35 U day and cut down the insulin drip and monitor the blood sugar Continue Levaquin continue supportive care CC evaluation more than 30 minutes. Time with Patient: Greater than 30
--- NOTE | 2020-05-30 07:26 | XR ---
EXAMINATION TYPE: XR chest 1V portable DATE OF EXAM: 05/30/2020 CLINICAL HISTORY: Difficulty breathing progress study. TECHNIQUE: Single AP portable semiupright view of the chest is obtained. COMPARISON: Chest x-ray from one day earlier and older studies FINDINGS: Stable endotracheal tube. Overlying sternal wires and mediastinal clips redemonstrated. Le ft atrial appendage clip redemonstrated. There is persistent low lung volumes and cardiomegaly with central vascular congestion and left great er than right bibasilar opacities. Gas prominent wall in the right upper to mid abdomen redemonstrate d. Osseous structures remain intact. IMPRESSION: Low lung volumes and cardiomegaly with central vascular congestion and left greater than right bibasilar acute infiltrate and/or atelectasis are all redemonstrated. Suspect small left-sided pleural effusion. No significant change from one day earlier.
[2020-05-30 07:59] LABS: Glucose,Whole Blood 156 mg/dL (75-99)
[2020-05-30] MEDS ORDERED: hydrALAZINE HCL 20 MG/ML 1 ML VIAL IVP STA (08:00)
--- NOTE | 2020-05-30 08:42 | XR ---
EXAMINATION TYPE: XR chest 1V portable DATE OF EXAM: 05/30/2020 COMPARISON: Prior chest x-ray 05/30/2020 HISTORY: Intubated TECHNIQUE: Single frontal view of the chest is obtained. FINDINGS: Endotracheal tube is superimposed over the tracheal air column in appropriate position. Th ere is no evident pneumothorax. Patient is post median sternotomy and left atrial appendage clipping placement. There are overlying artifacts. Lung volumes are low. Retrocardiac density persists, the le ft hemidiaphragm is obscured. Some minimal blunting the right costophrenic angle is noted. There is s ome improved aeration within the lungs. The aorta is dense. IMPRESSION: Improvement in aeration, volume status. Left lower lobe atelectasis versus pneumonia, po ssible small effusion.
--- NOTE | 2020-05-30 09:16 | PN ---
PROGRESS NOTE Mr. Perez is status post aortocoronary bypass surgery and he has had some mental status changes but he is off all pressors. He has been still on a ventilator on 25% FiO2, weaning efforts are in progress. Vitals are stable. S1-S2 heard normally, short systolic murmur. Lungs reveal fair air entry. Abdomen and lower extremity exam unchanged. Plan is to continue current medications. From a cardiac standpoint, weaning efforts are in progress. Hopefully, patient will be weaned and will not be too agitated and will be able to deal with the breathing on his own. Prognosis remains guarded. MMODL / IJN: [id number] /
--- NOTE | 2020-05-30 09:20 | P.PN ---
Subjective Progress Note Date: 05/30/20 Principal diagnosis: Unstable angina, severe calcific 3 vessel coronary artery disease. Previous medical history of recent stroke in November 2019 with continued short-term memory loss and impulsivity, cardiomyopathy with EF 45-50%, hypertension, hyperlipidemia, insulin-dependent diabetes with preoperative hemoglobin A1c 8%, asthma, previous tobacco dependence with preoperative FEV1 75% of predicted, and family history of premature coronary artery disease with father diagnosed less than 60 years old. POD #8 coronary artery bypass grafting 3 with the left internal mammary artery to the left anterior descending artery, reverse saphenous vein graft off the aorta to the first obtuse marginal artery and the posterior descending artery with endoscopic vein harvesting of the left lower extremity greater saphenous vein, clip ligation of the left atrial appendage with a 35 mm AtriClip and intraoperative transesophageal echocardiogram. Postoperative acute blood loss anemia and thrombocytopenia, expected outcomes given hemodilution and cardiopulmonary bypass pump Acute hypoxic respiratory failure requiring re-intubation, unexpected The patient was lay in the ICU sedated and intubated this morning, stable. Off sedation for an hour, extubation attempted. Initially patient was stable, however he progressed to having hypoxia, hypertension, Precedex was started with reduction of agitation but oxygen saturation continued to decrease and decision was made to reintubate the patient. Currently in sinus rhythm, hemodynamically stable. Plan is for tracheostomy placement tomorrow. Objective - Vital Signs Vital signs: Vital Signs Temp 99.9 F H 05/30/20 04:00 Pulse 64 05/30/20 07:00 Resp 16 05/30/20 07:00 BP 106/55 05/30/20 07:00 Pulse Ox 98 05/30/20 07:00 Intake & Output 05/29/20 05/30/20 05/30/20 18:59 06:59 18:59 Intake Total 1305.516 922.074 120 Output Total 1430 560 35 Balance -124.484 362.074 85 Weight 86.4 kg Intake: IV 140 220 20 LR 140 220 20 Intake, IV Titration 85.516 162.074 100 Amount Dexmedetomidine/0.9% NaCl 11.038 (Pmx) 400 mcg In Empty Bag 1 bag @ Titrate IV . Q0M [facility]YA Rx#:[id number] propofoL 1,000 mg In 74.478 162.074 100 Empty Bag 1 bag @ Titrate IV .Q0M LIYA Rx#: [id number] Tube Feeding 1050 450 Other 30 90 Output: Urine 1430 560 35 Other: Voiding Method Indwelling Catheter Indwelling Catheter ABP, PAP, CO, CI - Last Documented Arterial Blood Pressure 103/42 Pulmonary Artery Pressure 32/15 Cardiac Output 4.4 Cardiac Index 2.2 - Constitutional General appearance: Present: no acute distress - Respiratory Details: Lungs sounds diminished bilaterally. Respirations even, nonlabored on mechanical ventilation. Current vent settings FiO2 40%, TV 450, RR 16, PEEP 5. ABGs this AM on those settings 7.5/41/90/32/98%/8.6 on 25% FiO2 with 5 of PEEP. 8.0 ETT present, 23 @ the lip. - Cardiovascular Details: S1, S2 present. Regular rate and rhythm, sinus rhythm on telemetry with heart rate in the 70-80s. Sternum stable. Palpable peripheral pulses bilaterally. No edema present. Heart hugger in place, antiembolism stockings, SCDs present. - Gastrointestinal Gastrointestinal Comment(s): Abdomen soft, nontender, nondistended. Active bowel sounds present 4 quadrants. PEG tube in place, intermittent tube feeding taking place. Positive BM 05/26/20 per nursing - Genitourinary Genitourinary Comment(s): Hearn present draining clear yellow urine. Output 30-40 mL per hour overnight, 1025 mL diuresis after IV lasix given yesterday, 1885 mL in the last 24 hours - Integumentary Integumentary Comment(s): Skin is warm and dry. Anterior chest incision well approximated, small amount serous drainage present, no purulent drainage. Left lower extremity EVH site well approximated without redness or drainage. - Neurologic Neurologic Comment(s): sedated on mechanical ventilation - Musculoskeletal Musculoskeletal: Present: strength equal bilaterally - Psychiatric Psychiatric Comment(s): Currently sedated with propofol on mechanical ventilation, was off all sedation this morning and was moving all extremities, would not answer questions or nod or shake had appropriately - Allied health notes Allied health notes reviewed: nursing - Labs CBC & Chem 7: 05/30/20 04:44 05/30/20 04:44 Labs: Abnormal Lab Results - Last 24 Hours (Table) 05/29/20 05/29/20 05/29/20 Range/Units 09:12 12:02 17:12 RBC (4.30-5.90) m/uL Hgb (13.0-17.5) gm/dL Hct (39.0-53.0) % ABG pH (7.35-7.45) ABG HCO3 (21-25) mmol/L ABG Total CO2 (19-24) mmol/L ABG O2 Saturation (94-97) % Sodium (137-145) mmol/L Carbon Dioxide (22-30) mmol/L Creatinine (0.66-1.25) mg/dL Glucose (74-99) mg/dL POC Glucose (mg/dL) 147 H 198 H 168 H (75-99) mg/dL Calcium (8.4-10.2) mg/dL Total Protein (6.3-8.2) g/dL Albumin (3.5-5.0) g/dL 05/29/20 05/30/20 05/30/20 Range/Units 20:05 00:59 04:00 RBC (4.30-5.90) m/uL Hgb (13.0-17.5) gm/dL Hct (39.0-53.0) % ABG pH (7.35-7.45) ABG HCO3 (21-25) mmol/L ABG Total CO2 (19-24) mmol/L ABG O2 Saturation (94-97) % Sodium (137-145) mmol/L Carbon Dioxide (22-30) mmol/L Creatinine (0.66-1.25) mg/dL Glucose (74-99) mg/dL POC Glucose (mg/dL) 224 H 231 H 243 H (75-99) mg/dL Calcium (8.4-10.2) mg/dL Total Protein (6.3-8.2) g/dL Albumin (3.5-5.0) g/dL 05/30/20 05/30/20 05/30/20 Range/Units 04:41 04:44 04:44 RBC 2.95 L (4.30-5.90) m/uL Hgb 8.7 L (13.0-17.5) gm/dL Hct 26.8 L (39.0-53.0) % ABG pH 7.50 H (7.35-7.45) ABG HCO3 32 H (21-25) mmol/L ABG Total CO2 33 H (19-24) mmol/L ABG O2 Saturation 98.3 H (94-97) % Sodium 133 L (137-145) mmol/L Carbon Dioxide 32 H (22-30) mmol/L Creatinine 0.65 L (0.66-1.25) mg/dL Glucose 239 H (74-99) mg/dL POC Glucose (mg/dL) (75-99) mg/dL Calcium 8.1 L (8.4-10.2) mg/dL Total Protein 5.0 L (6.3-8.2) g/dL Albumin 2.4 L (3.5-5.0) g/dL 05/30/20 05/30/20 Range/Units 06:37 07:58 RBC (4.30-5.90) m/uL Hgb (13.0-17.5) gm/dL Hct (39.0-53.0) % ABG pH (7.35-7.45) ABG HCO3 (21-25) mmol/L ABG Total CO2 (19-24) mmol/L ABG O2 Saturation (94-97) % Sodium (137-145) mmol/L Carbon Dioxide (22-30) mmol/L Creatinine (0.66-1.25) mg/dL Glucose (74-99) mg/dL POC Glucose (mg/dL) 189 H 156 H (75-99) mg/dL Calcium (8.4-10.2) mg/dL Total Protein (6.3-8.2) g/dL Albumin (3.5-5.0) g/dL Microbiology - Last 24 Hours (Table) 05/26/20 09:53 Blood Culture - Preliminary Blood No Growth after 72 hours - Imaging and Cardiology Chest x-ray: report reviewed, image reviewed Assessment and Plan Assessment: 1. Unstable angina, severe calcific 3 vessel coronary artery disease, status post three-vessel CABG 2. Recent stroke in November 2019 with continued short-term memory loss and impulsivity 3. Cardiomyopathy with EF 45-50% 4. Hypertension 5. Hyperlipidemia 6. Insulin-dependent diabetes with preoperative hemoglobin A1c 8% 7. Asthma 8. Previous tobacco dependence with preoperative FEV1 75% of predicted 9. Family history of premature coronary artery disease with father diagnosed less than 60 years old. 10. Postoperative acute blood loss anemia and thrombocytopenia, expected 11. Acute hypoxic respiratory failure requiring reintubation, unexpected 12. Metabolic alkalosis, hypokalemia Plan: 1. Continue aspirin, statin, Plavix, beta sarah therapy. 2. Ventilator managment, bronchodilators per pulmonology. Plan for tracheostomy placement tomorrow by Dr. Boone 3. Will monitor daily labs and x-rays. Electrolyte replacement per protocol, replace potassium to keep K>4.2. Lasix 40 mg IVP x 1 today 4. GI/DVT prophylaxis 5. Pain control with current medication regimen 6. Insulin management per Dr. Tafoya 7. Continue Hearn catheter 8. Strict accurate intake and output, daily weight 9. Continue tube feedings 10. Social work/case management on consult for discharge planning, patient will need LTAC 11. More recommendations to follow based on patient's progress Time with Patient: Greater than 30
[2020-05-30] MEDS: bisacodyL 10 MG SUPP RECTAL PRN (09:39)
[2020-05-30] MEDS: INSULIN DETEMIR (LEVEMIR) 100 UNIT/ML SYR SQ SCH (09:50)
[2020-05-30] MEDS: ASPIRIN 325 MG TAB NG-TUBE SCH (09:51)
[2020-05-30] MEDS: ATORVASTATIN 40 MG TAB PO SCH (09:51)
[2020-05-30] MEDS: CHLORHEXIDINE GLUCONATE 15 ML CUP MUCOUS MEM SCH ×2 (09:51→20:43)
[2020-05-30] MEDS: CLOPIDOGREL 75 MG TAB PO SCH (09:52)
[2020-05-30] MEDS: LEVOFLOXACIN 500MG-D5W PMX 500 MG in DEXTROSE/WATER 1 100ML.BAG IVPB SCH (09:52)
[2020-05-30] MEDS: METOPROLOL TARTRATE 25 MG TAB NG-TUBE SCH ×2 (09:52→20:43)
[2020-05-30] MEDS: polyethylene glycoL 3350 17 GM POWD.PACK PO SCH (09:52)
[2020-05-30] MEDS: PANTOPRAZOLE 40 MG/10 ML VIAL IVP SCH (09:52)
[2020-05-30] MEDS: QUEtiapine 25 MG TAB PO SCH ×2 (09:53→20:43)
[2020-05-30 12:15] LABS: Glucose,Whole Blood 197 mg/dL (75-99)
--- NOTE | 2020-05-30 12:26 | P.PN ---
Subjective Progress Note Date: 05/30/20 CHIEF COMPLAINT: Patient is status post CABG HISTORY OF PRESENT ILLNESS: Patient remains in the ICU. He is intubated and sedated. Patient is status post PEG tube placement. He has been started on bolus tube feedings. He is having difficulty being weaned from the vent. Patient is scheduled for tracheostomy placement with Dr. Boone tomorrow. Patient afebrile WBC 7.5 hemoglobin 8.7 PHYSICAL EXAM: VITAL SIGNS: Reviewed. GENERAL: Well-developed in no acute distress. HEENT: No sclera icterus. Extraocular movements grossly intact. Moist buccal mucosa. Head is atraumatic, normocephalic. ABDOMEN: Soft. Nondistended. Nontender. NEUROLOGIC: Intubated and sedated ASSESSMENT: 1. Coronary artery disease status post three-vessel CABG 2. 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 Signing provider agrees with the documented findings, assessment, and plan of care. Objective - Vital Signs Vital signs: Vital Signs Temp 100.9 F H 05/30/20 12:00 Pulse 64 05/30/20 12:00 Resp 16 05/30/20 12:00 BP 109/53 05/30/20 12:00 Pulse Ox 97 05/30/20 12:00 Intake & Output 05/29/20 05/30/20 05/30/20 18:59 06:59 18:59 Intake Total 1305.516 922.074 800 Output Total 1430 560 825 Balance -124.484 362.074 -25 Weight 86.4 kg Intake: IV 140 220 220 LR 140 220 120 Levofloxacin 500Mg-D5w 100 Pmx 500 mg In Dextrose/ Water 1 100ml.bag @ 100 mls/hr IVPB Q24H [facility] Rx#: [id number] Intake, IV Titration 85.516 162.074 100 Amount Dexmedetomidine/0.9% NaCl 11.038 (Pmx) 400 mcg In Empty Bag 1 bag @ Titrate IV . Q0M [facility] Rx#:[id number] propofoL 1,000 mg In 74.478 162.074 100 Empty Bag 1 bag @ Titrate IV .Q0M [facility] Rx#: [id number] Tube Feeding 1050 450 450 Other 30 90 30 Output: Urine 1430 560 825 Other: Voiding Method Indwelling Catheter Indwelling Catheter Indwelling Catheter ABP, PAP, CO, CI - Last Documented Arterial Blood Pressure 103/42 Pulmonary Artery Pressure 32/15 Cardiac Output 4.4 Cardiac Index 2.2 - Labs CBC & Chem 7: 05/30/20 04:44 05/30/20 04:44 Labs: Abnormal Lab Results - Last 24 Hours (Table) 05/29/20 05/29/20 05/30/20 Range/Units 17:12 20:05 00:59 RBC (4.30-5.90) m/uL Hgb (13.0-17.5) gm/dL Hct (39.0-53.0) % ABG pH (7.35-7.45) ABG HCO3 (21-25) mmol/L ABG Total CO2 (19-24) mmol/L ABG O2 Saturation (94-97) % Sodium (137-145) mmol/L Carbon Dioxide (22-30) mmol/L Creatinine (0.66-1.25) mg/dL Glucose (74-99) mg/dL POC Glucose (mg/dL) 168 H 224 H 231 H (75-99) mg/dL Calcium (8.4-10.2) mg/dL Total Protein (6.3-8.2) g/dL Albumin (3.5-5.0) g/dL 05/30/20 05/30/20 05/30/20 Range/Units 04:00 04:41 04:44 RBC 2.95 L (4.30-5.90) m/uL Hgb 8.7 L (13.0-17.5) gm/dL Hct 26.8 L (39.0-53.0) % ABG pH 7.50 H (7.35-7.45) ABG HCO3 32 H (21-25) mmol/L ABG Total CO2 33 H (19-24) mmol/L ABG O2 Saturation 98.3 H (94-97) % Sodium (137-145) mmol/L Carbon Dioxide (22-30) mmol/L Creatinine (0.66-1.25) mg/dL Glucose (74-99) mg/dL POC Glucose (mg/dL) 243 H (75-99) mg/dL Calcium (8.4-10.2) mg/dL Total Protein (6.3-8.2) g/dL Albumin (3.5-5.0) g/dL 05/30/20 05/30/20 05/30/20 Range/Units 04:44 06:37 07:58 RBC (4.30-5.90) m/uL Hgb (13.0-17.5) gm/dL Hct (39.0-53.0) % ABG pH (7.35-7.45) ABG HCO3 (21-25) mmol/L ABG Total CO2 (19-24) mmol/L ABG O2 Saturation (94-97) % Sodium 133 L (137-145) mmol/L Carbon Dioxide 32 H (22-30) mmol/L Creatinine 0.65 L (0.66-1.25) mg/dL Glucose 239 H (74-99) mg/dL POC Glucose (mg/dL) 189 H 156 H (75-99) mg/dL Calcium 8.1 L (8.4-10.2) mg/dL Total Protein 5.0 L (6.3-8.2) g/dL Albumin 2.4 L (3.5-5.0) g/dL 05/30/20 Range/Units 12:14 RBC (4.30-5.90) m/uL Hgb (13.0-17.5) gm/dL Hct (39.0-53.0) % ABG pH (7.35-7.45) ABG HCO3 (21-25) mmol/L ABG Total CO2 (19-24) mmol/L ABG O2 Saturation (94-97) % Sodium (137-145) mmol/L Carbon Dioxide (22-30) mmol/L Creatinine (0.66-1.25) mg/dL Glucose (74-99) mg/dL POC Glucose (mg/dL) 197 H (75-99) mg/dL Calcium (8.4-10.2) mg/dL Total Protein (6.3-8.2) g/dL Albumin (3.5-5.0) g/dL Microbiology - Last 24 Hours (Table) 05/26/20 09:53 Blood Culture - Preliminary Blood No Growth after 72 hours
--- NOTE | 2020-05-30 13:35 | P.PN ---
Subjective Progress Note Date: 05/30/20 Marcos Perez is a 74 yo M with PMH of CAD, hx CVA with residual dementia, T2DM, HTN, HLD who is admitted s/p CABG. He is doing well today, hemodynamically stable and extubated, upright in chair. His sugars are controlled on insulin drip. Pt remains confused and agitated this morning, unable to remember the reason he is hospitalized and trying to remove lines and refusing oral medications. He has no specific concerns for me today. 05/24/2020 Seroquel initiated yesterday. 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 No further Haldol/Ativan since yesterday. Mediastinal chest tube removed. Currently on Cleveprex drip. Blood sugars controlled. Chest x-ray reporting continued mild pulmonary vascular congestion with slight improvement in bilateral base aeration. Prominent air persists below the right hemidiaphragm. Maintaining O2 sats in the 90s on 2 L nasal cannula. Afebrile, WBC 12.6. 05/25/2020 He remains on seroquel and precedex drip, he has been intermittently agitated pulling at lines and confused. Pt's vitals and glucose are well controlled today. CT head repeated and no interval change. Pt unable to take PO nutrition and enteral feedings started. 05/26/2020 Re-intubated during the night, FiO2 recently decreased to 25%/+5 of PEEP. ABGs noted. Chest x-ray reported improving lung markings with left base infiltrate.Continues on diprovan and small dose of Levophed drips. Tenacious secretions from endotracheal tube. Sputum culture pending. Afebrile. Urine culture pending. 05/29/20 remains vent dependent, FiO2 25%/+5 of PEEP. Continues on diprovan drip. Chest x-ray reporting continued small left effusion with left basilar retrocardiac atelectasis and/or consolidation. IV Levaquin initiated yesterday. Received a dose of Lasix yesterday with 24-hour I&O reflecting a negative fluid balance. T-max 100.1. Covid results pending. Urine and sputum cultures reporting no growth, blood cultures pending. Staff reports midsternal incision site with minimal serous drainage. Telemetry sinus rhythm. Blood sugars controlled on Levemir. PEG tube placed yesterday, tolerated procedure well. Resuming tube feeding today. 05/30/2020 chest x-ray reported no significant change .extubated early this morn ing, unable to tolerate, reintubated. ABGs noted. Maintained on 40% FiO2/+5 of PEEP. Sedated on diprovan drip. Scheduled for tracheostomy tomorrow. Received a dose of Lasix yesterday with 24-hour I&O reflecting nearly a zero balance.Continues on Levaquin. Sputum culture reporting normal respiratory mattie. Urine culture no growth at 18 hours .Blood sugars ranging from 150s to 250s. Received suppository yesterday, no bowel movement, receiving another suppository today. Objective - Vital Signs Vital signs: Vital Signs Temp 100.9 F H 05/30/20 12:00 Pulse 64 05/30/20 12:00 Resp 16 05/30/20 12:00 BP 109/53 05/30/20 12:00 Pulse Ox 97 05/30/20 12:00 Intake & Output 05/29/20 05/30/20 05/30/20 18:59 06:59 18:59 Intake Total 1305.516 922.074 800 Output Total 1430 560 825 Balance -124.484 362.074 -25 Weight 86.4 kg Intake: IV 140 220 220 LR 140 220 120 Levofloxacin 500Mg-D5w 100 Pmx 500 mg In Dextrose/ Water 1 100ml.bag @ 100 mls/hr IVPB Q24H [facility] Rx#: [id number] Intake, IV Titration 85.516 162.074 100 Amount Dexmedetomidine/0.9% NaCl 11.038 (Pmx) 400 mcg In Empty Bag 1 bag @ Titrate IV . Q0M [facility] Rx#:[id number] propofoL 1,000 mg In 74.478 162.074 100 Empty Bag 1 bag @ Titrate IV .Q0M [facility] Rx#: [id number] Tube Feeding 1050 450 450 Other 30 90 30 Output: Urine 1430 560 825 Other: Voiding Method Indwelling Catheter Indwelling Catheter Indwelling Catheter ABP, PAP, CO, CI - Last Documented Arterial Blood Pressure 103/42 Pulmonary Artery Pressure 32/15 Cardiac Output 4.4 Cardiac Index 2.2 - Exam General: sedated and reintubated on mechanical ventilation Eyes: PERRL, conjunctiva normal. HENT: normocephalic, atraumatic, OG tube present. Neck: supple, no JVD. Lungs: normal respiratory effort, fine bibasilar crackles. CV: Regular rate and rhythm, no murmur. Peripheral pulses 2+ Abdomen: soft, nondistended, no organomegaly, PEG tube present. Umbilical hernia present. Skin: warm and dry. Minimal mediastinal incision drainage. Neuro: Unable to assess at this time secondary to patient intubated and sedated. - Labs CBC & Chem 7: 05/30/20 04:44 05/30/20 04:44 Labs: Abnormal Lab Results - Last 24 Hours (Table) 05/29/20 05/29/20 05/30/20 Range/Units 17:12 20:05 00:59 RBC (4.30-5.90) m/uL Hgb (13.0-17.5) gm/dL Hct (39.0-53.0) % ABG pH (7.35-7.45) ABG HCO3 (21-25) mmol/L ABG Total CO2 (19-24) mmol/L ABG O2 Saturation (94-97) % Sodium (137-145) mmol/L Carbon Dioxide (22-30) mmol/L Creatinine (0.66-1.25) mg/dL Glucose (74-99) mg/dL POC Glucose (mg/dL) 168 H 224 H 231 H (75-99) mg/dL Calcium (8.4-10.2) mg/dL Total Protein (6.3-8.2) g/dL Albumin (3.5-5.0) g/dL 05/30/20 05/30/20 05/30/20 Range/Units 04:00 04:41 04:44 RBC 2.95 L (4.30-5.90) m/uL Hgb 8.7 L (13.0-17.5) gm/dL Hct 26.8 L (39.0-53.0) % ABG pH 7.50 H (7.35-7.45) ABG HCO3 32 H (21-25) mmol/L ABG Total CO2 33 H (19-24) mmol/L ABG O2 Saturation 98.3 H (94-97) % Sodium (137-145) mmol/L Carbon Dioxide (22-30) mmol/L Creatinine (0.66-1.25) mg/dL Glucose (74-99) mg/dL POC Glucose (mg/dL) 243 H (75-99) mg/dL Calcium (8.4-10.2) mg/dL Total Protein (6.3-8.2) g/dL Albumin (3.5-5.0) g/dL 05/30/20 05/30/20 05/30/20 Range/Units 04:44 06:37 07:58 RBC (4.30-5.90) m/uL Hgb (13.0-17.5) gm/dL Hct (39.0-53.0) % ABG pH (7.35-7.45) ABG HCO3 (21-25) mmol/L ABG Total CO2 (19-24) mmol/L ABG O2 Saturation (94-97) % Sodium 133 L (137-145) mmol/L Carbon Dioxide 32 H (22-30) mmol/L Creatinine 0.65 L (0.66-1.25) mg/dL Glucose 239 H (74-99) mg/dL POC Glucose (mg/dL) 189 H 156 H (75-99) mg/dL Calcium 8.1 L (8.4-10.2) mg/dL Total Protein 5.0 L (6.3-8.2) g/dL Albumin 2.4 L (3.5-5.0) g/dL Microbiology - Last 24 Hours (Table) 05/26/20 09:53 Blood Culture - Preliminary Blood No Growth after 72 hours Assessment and Plan Assessment: (1) acute hypoxic respiratory failure, requiring reintubation X2. Failure to wean. (2) Status post coronary artery bypass graft Current Visit: Yes Status: Acute Code(s): Z95.1 - PRESENCE OF AORTOCORONARY BYPASS GRAFT SNOMED Code(s): 316363773 (3)Triple vessel coronary artery disease Current Visit: Yes Status: Acute Code(s): I25.10 - ATHSCL HEART DISEASE OF [place] CORONARY ARTERY W/O ANG PCTRS SNOMED Code(s): 952182743 (4) History of CVA with residual deficit Current Visit: Yes Status: Acute Code(s): I69.30 - UNSPECIFIED SEQUELAE OF CEREBRAL INFARCTION SNOMED Code(s): 450051542 (5) Type 2 diabetes mellitus Current Visit: Yes Status: Acute Code(s): E11.9 - TYPE 2 DIABETES MELLITUS WITHOUT COMPLICATIONS SNOMED Code(s): 01670967 (6) Dementia Current Visit: Yes Status: Acute Code(s): F03.90 - UNSPECIFIED DEMENTIA WITHOUT BEHAVIORAL DISTURBANCE SNOMED Code(s): 48055126 (7) Cerebral infarction, remote, resolved Current Visit: No Status: Acute Code(s): Z86.73 - PRSNL HX OF TIA (TIA), AND CEREB INFRC W/O RESID DEFICITS SNOMED Code(s): 022689920 (8) PEG tube placement (9) severe protein calorie malnutrition Plan: Continue current medication regime ,monitoring and symptomatic treatment. Failure to wean, scheduled for tracheostomy tomorrow .Strict aspiration precautions. Resuming tube feeds. Maintain tight control of blood sugars with Levemir dose further increased -close monitoring of Accu-Cheks. Continue on Levaquin. Prognosis guarded given multiple complex medical issues. The impression and plan of care has been dictated as directed. : I performed a history and examination of this patient, discussed the same with the dictator. I agree with the dictator's note ,documented as a scribe. Any additional findings or plans will be noted.
--- NOTE | 2020-05-30 16:08 | P.PCN ---
Date of Procedure: 05/30/20 Preoperative Diagnosis: Acute respiratory distress/hypoxemia Postoperative Diagnosis: Acute respiratory distress/hypoxemia post extubation Procedure(s) Performed: Intubation Anesthesia: MAC Surgeon: Eriberto Chinchilla Estimated Blood Loss (ml): 0 Pathology: none sent Condition: critical Disposition: ICU Operative Findings: Indication: Respiratory compromise. The patient failed extubation. The patient was extubated this morning. Subsequently he became acutely short of breath, stridorous, and hypoxic and he had to be reintubated. A time-out was completed verifying correct patient, procedure, site, positioning, and implant(s) or special equipment if applicable. The patient was positioned appropriately and a #8 endotracheal tube was placed under direct laryngoscopy. The tube was anchored at 22 cm at the teeth. Correct placement was confirmed by presence of bilateral breath sounds without air sounds in the abdomen on auscultation. An end-tidal CO2 monitor was also used to confirm tracheal placement of the ET tube. A chest x-ray was ordered to assess for pneumothorax and verify endotracheal tube placement. The patient tolerated the procedure well and there were no complications.
[2020-05-30] MEDS: INSULIN REGULAR 100 UNIT in SODIUM CHLORIDE 0.9% 100 ML IV SCH (17:29)
[2020-05-30 17:42] LABS: Glucose,Whole Blood 202 mg/dL (75-99)
[2020-05-30] MEDS: SENNOSIDES-DOCUSATE SODIUM 1 EACH TAB PO SCH (20:44)
[2020-05-30 22:56] LABS: Glucose,Whole Blood 181 mg/dL (75-99)
[2020-05-30 22:56] LABS: Glucose,Whole Blood 201 mg/dL (75-99)
[2020-05-30 22:56] LABS: Glucose,Whole Blood 110 mg/dL (75-99)
[2020-05-30 22:56] LABS: Glucose,Whole Blood 113 mg/dL (75-99)
[2020-05-31] MEDS: IPRATROPIUM-ALBUTEROL 3 ML NEB INHALATION SCH ×6 (00:02→22:26)
[2020-05-31 00:28] LABS: Glucose,Whole Blood 125 mg/dL (75-99)
[2020-05-31 01:20] LABS: Glucose,Whole Blood 114 mg/dL (75-99)
[2020-05-31 02:23] LABS: Glucose,Whole Blood 138 mg/dL (75-99)
[2020-05-31 03:38] LABS: Glucose,Whole Blood 128 mg/dL (75-99)
[2020-05-31 04:11] LABS: Basophils % (A) 0 %; Eosinophils # (A) 0.2 k/uL (0-0.7); Eosinophils % (A) 2 %; HCT 27.6 % (39.0-53.0); HGB 9.2 gm/dL (13.0-17.5); Lymphocytes # (A) 1.2 k/uL (1.0-4.8); Lymphocytes % (A) 14 %; MCH 30.2 pg (25.0-35.0); MCHC 33.3 g/dL (31.0-37.0); MCV 90.6 fL (80.0-100.0); Mean Platelet Volume 8.3; Monocytes # (A) 0.5 k/uL (0-1.0); Monocytes % (A) 6 %; Neutrophils # (A) 6.9 k/uL (1.3-7.7); Neutrophils % (A) 76 %; Platelet Count 310 k/uL (150-450); RBC 3.04 m/uL (4.30-5.90); RDW 13.6 % (11.5-15.5); WBC 9.1 k/uL (3.8-10.6)
[2020-05-31 04:13] LABS: Glucose,Whole Blood 131 mg/dL (75-99)
[2020-05-31 04:28] LABS: ALT 19 U/L (4-49); AST 27 U/L (17-59); African American GFR (CKD) >90 (>60 ml/min/1.73 sqM); Albumin 2.4 g/dL (3.5-5.0); Alkaline Phosphatase 55 U/L (38-126); Anion Gap 3 mmol/L; Blood Urea Nitrogen 16 mg/dL (9-20); Calcium 8.2 mg/dL (8.4-10.2); Carbon Dioxide 33 mmol/L (22-30); Chloride 100 mmol/L (98-107); Glucose 136 mg/dL (74-99); Magnesium 1.9 mg/dL (1.6-2.3); Non-African American GFR(CKD) 89 (>60 ml/min/1.73 sqM); Potassium 3.9 mmol/L (3.5-5.1); Sodium 136 mmol/L (137-145); Total Bilirubin 0.6 mg/dL (0.2-1.3)
[2020-05-31 04:32] LABS: Ionized Calcium 4.7 mg/dL (4.5-5.3)
[2020-05-31] MEDS: HEPARIN SODIUM,PORCINE 5,000 UNIT/ML 1 ML VIAL SQ SCH ×3 (05:00→20:36)
[2020-05-31] MEDS: POTASSIUM CHLORIDE 10 MEQ in WATER FOR INJECTION 1 100ML.BAG IVPB SCH ×2 (05:00→06:21)
[2020-05-31 05:06] LABS: ABG HCO3 32 mmol/L (21-25); ABG PCO2 35 mmHg (35-45); ABG PO2 138 mmHg (83-108); ABG TCO2 33 mmol/L (19-24); Allen Test Performed? Yes
[2020-05-31 05:12] LABS: Glucose,Whole Blood 112 mg/dL (75-99)
[2020-05-31] MEDS: MAGNESIUM SULFATE-D5W PMX 1 GM in DEXTROSE/WATER 1 100ML.BAG IVPB SCH ×2 (05:13→06:21)
[2020-05-31 06:17] LABS: Glucose,Whole Blood 146 mg/dL (75-99)
[2020-05-31] MEDS: INSULIN DETEMIR (LEVEMIR) 100 UNIT/ML SYR SQ SCH (06:22)
--- NOTE | 2020-05-31 06:54 | P.PN ---
Subjective Progress Note Date: 05/31/20 74-year-old male patient with post four-vessel bypass surgery. The patient is postop day #7 the patient underwent DOOLEY to LAD and saphenous vein graft to obtuse marginal and PDA. The patient has cardiomyopathy with ejection fraction of 45%. The patient has insulin-dependent diabetes mellitus and the patient has a previous history of CVA including with a short-term memory loss and impulsivity. Postextubation and currently the patient remains on a mechanical ventilator. His cardiac rhythm is sinus. He is hemodynamically stable. The patient remains on assist control mode of ventilation at the rate of 16 with a tidal volume of 450 and FiO2 of 25% and a PEEP of 5. He is post exhibition insertion and the patient will be started on feeding for nutritional support. Sedation is with propofol at a rate of 30mcg per KG per minute and insulin drip is running 4U units an hour for blood sugar control. Chest x-ray showing some retrocardiac infiltration and left basilar airspace disease. The patient is currently on Levaquin as an empiric antibiotic coverage. The patient is on DuoNeb nebulized treatments around the clock, aspirin and Plavix and the patient is also on metoprolol 25 mg by mouth twice a day. The sputum culture has shown no growth. Urine cultures no growth. A CAT scan of the brain that showed no evidence of any acute intracranial hemorrhage or midline shift. This is uncha nged compared to previous CT if the brain of November 2019. The blood gases from today showed a pH of 7.5 with a pCO2 of 40 and pO2 of 79. Peak airway pressures nonelevated at 22. X-ray showing cardiomegaly. If she was in a good location. The patient has pulmonary vessel congestion. There is also bowel loops on the right hemidiaphragm. There is also volume loss and the patient is smaller lung volumes. The patient was given a dose of Lasix 40 mg of push yesterday. His net fluid balance for yesterday is negative 255 mL. urine output is in order of 30-60 mL an hour. Patient is also on Seroquel 50 mg by mouth twice a day. He is on Levemir insulin was introduced for blood sugar control. on 05/30/2020, the patient remains sedated with propofol. He failed a sedation holiday yesterday and the same will be done today. He is currently off of a 4- 30 g per KG per minute and this is being gradually weaned off. I was told that his mental status was not appropriate even preoperatively and discomfort worse postop. In any rate, we are going to give the patient later sedation holiday. The patient is an assist-control mode at the rate of 16 with tidal volume of 450 FiO2 of 25% with a PEEP of 5. Chest x-ray showing pulmonary vascular congestion, small bilateral pleural effusions and cardiomegaly. ET tube is in a good location. No significant orotracheal secretions. Sternal wound is not draining at this point in time and it's dry and clean. His cardiac rhythm is sinus. He is on no pressors. He is receiving enteral feeding for nutritional support. They the patient is on Levemir at 25 units and the patient is also receiving psychiatric coverage. Blood sugars has been in the low 200s. Urine output is adequate for now. No fever. No other active issues for now. He remains on Levaquin. He was given a dose of Lasix yesterday 40 mg IV push and he is in a 0 fluid balance over the past 24 hours. Active site is clean and intact. No abdominal distention. He is postop day #8. He has also an umbilical hernia which is easily reducible.the blood gas from today showed a pH of 7.5 with a pCO2 of 41 and a pO2 of 90 and this was done and FiO2 of 25%. Airway pressures are not elevated. on 05/31/2020, the patient remains intubated. He had a failed extubation yeste rday. Postextubation, he became quite restless and agitated and he had also questioning the stridorous breathing as the patient was having inspiratory and expiratory harsh noise coming from his neck area. Obviously within 10 minutes, decompensated, became hypoxic and hypotensive. I had to be intubated and immediately on an emergency basis. He currently is intubated with a #8 orotracheal tube. He is on a mechanical ventilator. He is an FiO2 of 40% with a PEEP of 5 and tidal volume 450 with a rate of 16. Chest x-ray showing small bilateral pleural effusions. ET tube is in a good location. He is receiving daily Lasix doses. He is pH was at 7.5757 with a pCO2 of 35 and pO2 138. His serum bicarb is at 33. As such she has a combination of respiratory and metabolic alkalosis. He is hemodynamically stable. He is in a normal sinus rhythm. He is not requiring any pressors. Obviously mentation is an ongoing issue with this patient. The plan for now is to proceed with a tracheostomy tube insertion. He already had his PEG tube and an acute visit currently on hold. Otherwise no other significant events overnight. He is producing adequate amount of urine output. Sternal stable clean and intact. Objective - Vital Signs Vital signs: Vital Signs Temp 99.5 F 05/31/20 04:00 Pulse 64 05/31/20 06:00 Resp 16 05/31/20 06:00 BP 119/66 05/31/20 06:00 Pulse Ox 98 05/31/20 06:00 Intake & Output 05/30/20 05/30/20 05/31/20 06:59 18:59 06:59 Intake Total 163.962 1771.353 797.436 Output Total 560 1295 485 Balance 362.074 30.353 312.436 Weight 86.4 kg 87.6 kg Intake: IV 220 340 240 LR 220 240 240 Levofloxacin 500Mg-D5w 100 Pmx 500 mg In Dextrose/ Water 1 100ml.bag @ 100 mls/hr IVPB Q24H [facility] Rx#: [id number] Intake, IV Titration 162.074 205.353 107.436 Amount Insulin Regular 100 unit 5.353 37.193 In Sodium Chloride 0.9% 100 ml @ Per Protocol IV .Q0M [facility] Rx#:[id number] propofoL 1,000 mg In 162.074 200 70.243 Empty Bag 1 bag @ Titrate IV .Q0M [facility]YA Rx#: [id number] Tube Feeding 450 750 450 Other 90 30 Output: Urine 560 1295 485 Other: Voiding Method Indwelling Catheter Indwelling Catheter Indwelling Catheter ABP, PAP, CO, CI - Last Documented Arterial Blood Pressure 103/42 Pulmonary Artery Pressure 32/15 Cardiac Output 4.4 Cardiac Index 2.2 - Exam GENERAL EXAM: Intubated, sedated 74-year-old gentleman, on the mechanical ventilator , orotracheal tube is in place. The patient has a PEG tube in place. He is currently sedated with propofol. Propofol is running at 25 g per KG per minute. HEAD: Normocephalic. EYES: Sluggish reaction of pupils, equal size. NOSE: Oral endotracheal and gastric tube secured in place. Clear with pink turbinates. THROAT: No erythema or exudates. NECK: No masses, no JVD. CHEST: Sternal dressing dry and intact. Serous drainage noted from incision. No chest wall deformity.no active drainage from the chest wall wound. No surrounding cellulitis at this point in time. LUNGS: Equal air entry with crackles in the bilateral posterior bases.. CVS: S1 and S2 normal with no audible murmur, regular rhythm. ABDOMEN: No hepatosplenomegaly, normal bowel sounds, no guarding or rigidity.the patient has an umbilical hernia. The patient also has a PEG tube in place SPINE: No scoliosis or deformity SKIN: No rashes CENTRAL NERVOUS SYSTEM: Tone is normal in all 4 extremities. EXTREMITIES: There is no peripheral edema. No clubbing, no cyanosis. Peripheral pulses are intact. - Labs CBC & Chem 7: 05/31/20 03:41 05/31/20 03:41 Labs: Abnormal Lab Results - Last 24 Hours (Table) 05/30/20 05/30/20 05/30/20 Range/Units 07:58 12:14 17:21 RBC (4.30-5.90) m/uL Hgb (13.0-17.5) gm/dL Hct (39.0-53.0) % ABG pH (7.35-7.45) ABG pO2 (83-108) mmHg ABG HCO3 (21-25) mmol/L ABG Total CO2 (19-24) mmol/L ABG O2 Saturation (94-97) % Sodium (137-145) mmol/L Carbon Dioxide (22-30) mmol/L Glucose (74-99) mg/dL POC Glucose (mg/dL) 156 H 197 H 202 H (75-99) mg/dL Calcium (8.4-10.2) mg/dL Total Protein (6.3-8.2) g/dL Albumin (3.5-5.0) g/dL 05/30/20 05/30/20 05/30/20 Range/Units 18:13 19:05 21:57 RBC (4.30-5.90) m/uL Hgb (13.0-17.5) gm/dL Hct (39.0-53.0) % ABG pH (7.35-7.45) ABG pO2 (83-108) mmHg ABG HCO3 (21-25) mmol/L ABG Total CO2 (19-24) mmol/L ABG O2 Saturation (94-97) % Sodium (137-145) mmol/L Carbon Dioxide (22-30) mmol/L Glucose (74-99) mg/dL POC Glucose (mg/dL) 201 H 181 H 113 H (75-99) mg/dL Calcium (8.4-10.2) mg/dL Total Protein (6.3-8.2) g/dL Albumin (3.5-5.0) g/dL 05/30/20 05/31/20 05/31/20 Range/Units 22:55 00:27 01:19 RBC (4.30-5.90) m/uL Hgb (13.0-17.5) gm/dL Hct (39.0-53.0) % ABG pH (7.35-7.45) ABG pO2 (83-108) mmHg ABG HCO3 (21-25) mmol/L ABG Total CO2 (19-24) mmol/L ABG O2 Saturation (94-97) % Sodium (137-145) mmol/L Carbon Dioxide (22-30) mmol/L Glucose (74-99) mg/dL POC Glucose (mg/dL) 110 H 125 H 114 H (75-99) mg/dL Calcium (8.4-10.2) mg/dL Total Protein (6.3-8.2) g/dL Albumin (3.5-5.0) g/dL 05/31/20 05/31/20 05/31/20 Range/Units 02:21 03:36 03:41 RBC 3.04 L (4.30-5.90) m/uL Hgb 9.2 L (13.0-17.5) gm/dL Hct 27.6 L (39.0-53.0) % ABG pH (7.35-7.45) ABG pO2 (83-108) mmHg ABG HCO3 (21-25) mmol/L ABG Total CO2 (19-24) mmol/L ABG O2 Saturation (94-97) % Sodium (137-145) mmol/L Carbon Dioxide (22-30) mmol/L Glucose (74-99) mg/dL POC Glucose (mg/dL) 138 H 128 H (75-99) mg/dL Calcium (8.4-10.2) mg/dL Total Protein (6.3-8.2) g/dL Albumin (3.5-5.0) g/dL 05/31/20 05/31/20 05/31/20 Range/Units 03:41 04:12 04:49 RBC (4.30-5.90) m/uL Hgb (13.0-17.5) gm/dL Hct (39.0-53.0) % ABG pH 7.57 H* (7.35-7.45) ABG pO2 138 H (83-108) mmHg ABG HCO3 32 H (21-25) mmol/L ABG Total CO2 33 H (19-24) mmol/L ABG O2 Saturation 100.0 H (94-97) % Sodium 136 L (137-145) mmol/L Carbon Dioxide 33 H (22-30) mmol/L Glucose 136 H (74-99) mg/dL POC Glucose (mg/dL) 131 H (75-99) mg/dL Calcium 8.2 L (8.4-10.2) mg/dL Total Protein 5.0 L (6.3-8.2) g/dL Albumin 2.4 L (3.5-5.0) g/dL 05/31/20 05/31/20 Range/Units 05:10 06:15 RBC (4.30-5.90) m/uL Hgb (13.0-17.5) gm/dL Hct (39.0-53.0) % ABG pH (7.35-7.45) ABG pO2 (83-108) mmHg ABG HCO3 (21-25) mmol/L ABG Total CO2 (19-24) mmol/L ABG O2 Saturation (94-97) % Sodium (137-145) mmol/L Carbon Dioxide (22-30) mmol/L Glucose (74-99) mg/dL POC Glucose (mg/dL) 112 H 146 H (75-99) mg/dL Calcium (8.4-10.2) mg/dL Total Protein (6.3-8.2) g/dL Albumin (3.5-5.0) g/dL Microbiology - Last 24 Hours (Table) 05/26/20 09:53 Blood Culture - Preliminary Blood No Growth after 96 hours Assessment and Plan Plan: 1 Coronary artery disease status post three-vessel coronary artery bypass grafting. Postoperative day #9. For now, the weaning has been complicated as the patient is having difficulties with altered mentation. He is becoming quite agitated and is having difficulties in coming off sedation. he was given a second trial of extubation and he failed miserably and had to be reintubated. Obviously there is a combination of factors including his excessive agitation and restlessness in addition to questionable stridor affecting his upper airway contributing to his respiratory failure. He is currently intubated. The plan is to proceed with a tracheostomy tube insertion today. 2 Acute hypoxemic respiratory failure requiring reintubation and placed back on the mechanical ventilator on 05/25/2020, unexpected 3 Ischemic cardiomyopathy with ejection fraction 45-50% 4 Hyperlipidemia 5 Diabetes mellitus, currently on insulin for blood sugar control. 6 Chronic bronchial asthma 7 History of chronic tobacco dependence 8 Recent CVA in November 2019 with ongoing altered mental status 9 Hypertension, history of 10 insertion of a PEG tube for enteral feeding 11 questionable sternal wound infection as the patient has some drainage, the drainage is serous at this point in time. plan proceed with a tracheostomy tube insertion today. Sedation for today. Gradually wean down his sedation after tracheostomy tube insertion enteral feeding for nutritional support. Dietary consultation is been obtained.currently tube feeds on hold in preparation for tracheostomy tube insertion Lasix 40 mg 1 dose today. he does have a component of respiratory alkalosis. The tidal volume 450cc, reduced down to 400 that there is a component of metabolic and respiratory alkalosis. Continue Levaquin continue supportive care CC evaluation more than 30 minutes. Time with Patient: Greater than 30
[2020-05-31 07:10] LABS: Glucose,Whole Blood 141 mg/dL (75-99)
[2020-05-31] MEDS ORDERED: FUROSEMIDE 10 MG/ML 4 ML VIAL IV STA ×2 (07:12→15:19)
--- NOTE | 2020-05-31 07:25 | P.PN ---
Subjective Progress Note Date: 05/31/20 Principal diagnosis: Unstable angina, severe calcific 3 vessel coronary artery disease. Previous medical history of recent stroke in November 2019 with continued short-term memory loss and impulsivity, cardiomyopathy with EF 45-50%, hypertension, hyperlipidemia, insulin-dependent diabetes with preoperative hemoglobin A1c 8%, asthma, previous tobacco dependence with preoperative FEV1 75% of predicted, and family history of premature coronary artery disease with father diagnosed less than 60 years old. POD #9 coronary artery bypass grafting 3 with the left internal mammary artery to the left anterior descending artery, reverse saphenous vein graft off the aorta to the first obtuse marginal artery and the posterior descending artery with endoscopic vein harvesting of the left lower extremity greater saphenous vein, clip ligation of the left atrial appendage with a 35 mm AtriClip and intraoperative transesophageal echocardiogram. Postoperative acute blood loss anemia and thrombocytopenia, expected outcomes given hemodilution and cardiopulmonary bypass pump Acute hypoxic respiratory failure requiring re-intubation, unexpected The patient was lay in the ICU sedated and intubated this morning, stable. Remains in normal sinus rhythm, hemodynamically stable on no pressors. No new events overnight. Plan is for tracheostomy placement today. Objective - Vital Signs Vital signs: Vital Signs Temp 99.5 F 05/31/20 04:00 Pulse 64 05/31/20 06:00 Resp 16 05/31/20 06:00 BP 119/66 05/31/20 06:00 Pulse Ox 98 05/31/20 06:00 Intake & Output 05/30/20 05/31/20 05/31/20 18:59 06:59 18:59 Intake Total 1325.353 797.436 3.24 Output Total 1295 485 Balance 30.353 312.436 3.24 Weight 87.6 kg Intake: IV 340 240 LR 240 240 Levofloxacin 500Mg-D5w 100 Pmx 500 mg In Dextrose/ Water 1 100ml.bag @ 100 mls/hr IVPB Q24H [facility] Rx#: [id number] Intake, IV Titration 205.353 107.436 3.24 Amount Insulin Regular 100 unit 5.353 37.193 3.24 In Sodium Chloride 0.9% 100 ml @ Per Protocol IV .Q0M [facility] Rx#:[id number] propofoL 1,000 mg In 200 70.243 Empty Bag 1 bag @ Titrate IV .Q0M [facility] Rx#: [id number] Tube Feeding 750 450 Other 30 Output: Urine 1295 485 Other: Voiding Method Indwelling Catheter Indwelling Catheter ABP, PAP, CO, CI - Last Documented Arterial Blood Pressure 103/42 Pulmonary Artery Pressure 32/15 Cardiac Output 4.4 Cardiac Index 2.2 - Constitutional General appearance: Present: no acute distress - Respiratory Details: Lungs sounds diminished bilaterally. Respirations even, nonlabored on mechan ical ventilation. Current vent settings FiO2 40%, TV 450, RR 16, PEEP 5. ABGs this AM on those settings 7.57/35/138/32/100%/10 on those settings, TV decreased to [address] Chinchilla. 8.0 ETT present, 23 @ the lip. - Cardiovascular Details: S1, S2 present. Regular rate and rhythm, sinus rhythm on telemetry with heart rate in the 60s. Sternum stable. Palpable peripheral pulses bilaterally. Trace upper extremity edema present. Heart hugger in place, antiembolism stockings, SCDs present. - Gastrointestinal Gastrointestinal Comment(s): Abdomen soft, nontender, nondistended. Active bowel sounds present 4 quadrants. PEG tube in place, tube feedings currently on hold. Last BM 05/26/20 per nursing - Genitourinary Genitourinary Comment(s): Hearn present draining clear yellow urine. Output 35-40 mL per hour overnight, 600 mL diuresis after IV lasix given yesterday, 1780 mL in the last 24 hours - Integumentary Integumentary Comment(s): Skin is warm and dry. Anterior chest incision well approximated, small amount serous drainage present, no purulent drainage. Left lower extremity EVH site well approximated without redness or drainage. - Neurologic Neurologic Comment(s): sedated on mechanical ventilation - Musculoskeletal Musculoskeletal: Present: strength equal bilaterally - Psychiatric Psychiatric Comment(s): Currently sedated with propofol on mechanical ventilation - Allied health notes Allied health notes reviewed: nursing - Labs CBC & Chem 7: 05/31/20 03:41 05/31/20 03:41 Labs: Abnormal Lab Results - Last 24 Hours (Table) 05/30/20 05/30/20 05/30/20 Range/Units 07:58 12:14 17:21 RBC (4.30-5.90) m/uL Hgb (13.0-17.5) gm/dL Hct (39.0-53.0) % ABG pH (7.35-7.45) ABG pO2 (83-108) mmHg ABG HCO3 (21-25) mmol/L ABG Total CO2 (19-24) mmol/L ABG O2 Saturation (94-97) % Sodium (137-145) mmol/L Carbon Dioxide (22-30) mmol/L Glucose (74-99) mg/dL POC Glucose (mg/dL) 156 H 197 H 202 H (75-99) mg/dL Calcium (8.4-10.2) mg/dL Total Protein (6.3-8.2) g/dL Albumin (3.5-5.0) g/dL 05/30/20 05/30/20 05/30/20 Range/Units 18:13 19:05 21:57 RBC (4.30-5.90) m/uL Hgb (13.0-17.5) gm/dL Hct (39.0-53.0) % ABG pH (7.35-7.45) ABG pO2 (83-108) mmHg ABG HCO3 (21-25) mmol/L ABG Total CO2 (19-24) mmol/L ABG O2 Saturation (94-97) % Sodium (137-145) mmol/L Carbon Dioxide (22-30) mmol/L Glucose (74-99) mg/dL POC Glucose (mg/dL) 201 H 181 H 113 H (75-99) mg/dL Calcium (8.4-10.2) mg/dL Total Protein (6.3-8.2) g/dL Albumin (3.5-5.0) g/dL 05/30/20 05/31/20 05/31/20 Range/Units 22:55 00:27 01:19 RBC (4.30-5.90) m/uL Hgb (13.0-17.5) gm/dL Hct (39.0-53.0) % ABG pH (7.35-7.45) ABG pO2 (83-108) mmHg ABG HCO3 (21-25) mmol/L ABG Total CO2 (19-24) mmol/L ABG O2 Saturation (94-97) % Sodium (137-145) mmol/L Carbon Dioxide (22-30) mmol/L Glucose (74-99) mg/dL POC Glucose (mg/dL) 110 H 125 H 114 H (75-99) mg/dL Calcium (8.4-10.2) mg/dL Total Protein (6.3-8.2) g/dL Albumin (3.5-5.0) g/dL 05/31/20 05/31/20 05/31/20 Range/Units 02:21 03:36 03:41 RBC 3.04 L (4.30-5.90) m/uL Hgb 9.2 L (13.0-17.5) gm/dL Hct 27.6 L (39.0-53.0) % ABG pH (7.35-7.45) ABG pO2 (83-108) mmHg ABG HCO3 (21-25) mmol/L ABG Total CO2 (19-24) mmol/L ABG O2 Saturation (94-97) % Sodium (137-145) mmol/L Carbon Dioxide (22-30) mmol/L Glucose (74-99) mg/dL POC Glucose (mg/dL) 138 H 128 H (75-99) mg/dL Calcium (8.4-10.2) mg/dL Total Protein (6.3-8.2) g/dL Albumin (3.5-5.0) g/dL 05/31/20 05/31/20 05/31/20 Range/Units 03:41 04:12 04:49 RBC (4.30-5.90) m/uL Hgb (13.0-17.5) gm/dL Hct (39.0-53.0) % ABG pH 7.57 H* (7.35-7.45) ABG pO2 138 H (83-108) mmHg ABG HCO3 32 H (21-25) mmol/L ABG Total CO2 33 H (19-24) mmol/L ABG O2 Saturation 100.0 H (94-97) % Sodium 136 L (137-145) mmol/L Carbon Dioxide 33 H (22-30) mmol/L Glucose 136 H (74-99) mg/dL POC Glucose (mg/dL) 131 H (75-99) mg/dL Calcium 8.2 L (8.4-10.2) mg/dL Total Protein 5.0 L (6.3-8.2) g/dL Albumin 2.4 L (3.5-5.0) g/dL 05/31/20 05/31/20 05/31/20 Range/Units 05:10 06:15 07:09 RBC (4.30-5.90) m/uL Hgb (13.0-17.5) gm/dL Hct (39.0-53.0) % ABG pH (7.35-7.45) ABG pO2 (83-108) mmHg ABG HCO3 (21-25) mmol/L ABG Total CO2 (19-24) mmol/L ABG O2 Saturation (94-97) % Sodium (137-145) mmol/L Carbon Dioxide (22-30) mmol/L Glucose (74-99) mg/dL POC Glucose (mg/dL) 112 H 146 H 141 H (75-99) mg/dL Calcium (8.4-10.2) mg/dL Total Protein (6.3-8.2) g/dL Albumin (3.5-5.0) g/dL Microbiology - Last 24 Hours (Table) 05/26/20 09:53 Blood Culture - Preliminary Blood No Growth after 96 hours - Imaging and Cardiology Chest x-ray: image reviewed Assessment and Plan Assessment: 1. Unstable angina, severe calcific 3 vessel coronary artery disease, status post three-vessel CABG 2. Recent stroke in November 2019 with continued short-term memory loss and impulsivity 3. Cardiomyopathy with EF 45-50% 4. Hypertension 5. Hyperlipidemia 6. Insulin-dependent diabetes with preoperative hemoglobin A1c 8% 7. Asthma 8. Previous tobacco dependence with preoperative FEV1 75% of predicted 9. Family history of premature coronary artery disease with father diagnosed less than 60 years old. 10. Postoperative acute blood loss anemia and thrombocytopenia, expected 11. Acute hypoxic respiratory failure requiring reintubation, unexpected 12. Metabolic alkalosis, hypokalemia Plan: 1. Continue aspirin, statin, Plavix, beta sarah therapy. 2. Ventilator managment, bronchodilators per pulmonology. Plan for tracheostomy placement today by Dr. Boone 3. Will monitor daily labs and x-rays. Electrolyte replacement per protocol, replace potassium to keep K>4.2. Lasix 40 mg IVP x 1 today 4. GI/DVT prophylaxis 5. Pain control with current medication regimen 6. Insulin management per Dr. Tafoya 7. Continue Hearn catheter 8. Strict accurate intake and output, daily weight 9. Restart tube feedings after trach placement 10. Social work/case management on consult for discharge planning, patient will need LTAC 11. More recommendations to follow based on patient's progress Time with Patient: Greater than 30
--- NOTE | 2020-05-31 08:06 | XR ---
EXAMINATION TYPE: XR chest 1V portable DATE OF EXAM: 05/31/2020 COMPARISON: 06/11/2020 INDICATION: Post cardiac surgery TECHNIQUE: Single frontal view of the chest is obtained. FINDINGS: The heart size is mildly prominent. The pulmonary vasculature is normal. Small right pleural effusion. Minimal left pleural effusion. Bibasilar infiltrates are present . Sternotomy wires are present from prior cardiac surgery. Endotracheal tube tip is prominent. IMPRESSION: 1. Small bilateral pleural effusions. 2. Bibasilar infiltrates. 3. Endotracheal tube tip above the roro
[2020-05-31 08:13] LABS: Glucose,Whole Blood 129 mg/dL (75-99)
[2020-05-31] MEDS: CHLORHEXIDINE GLUCONATE 15 ML CUP MUCOUS MEM SCH ×2 (08:25→20:36)
[2020-05-31] MEDS: PANTOPRAZOLE 40 MG/10 ML VIAL IVP SCH (08:25)
[2020-05-31] MEDS ORDERED: LEVOFLOXACIN 500 MG TAB PO SCH (09:00)
[2020-05-31 09:06] LABS: Glucose,Whole Blood 119 mg/dL (75-99)
--- NOTE | 2020-05-31 09:45 | PN ---
PROGRESS NOTE Mr. Perez was extubated for a few minutes yesterday. He was quite distressed and had to be reintubated. He is status post bypass surgery, hemodynamically stable, not on any pressors, maintaining sinus rhythm. He is going for tracheostomy today. Prognosis for this gentleman looks bad from a respiratory standpoint. Vitals are stable. JVD is evident. S1-S2 heard normally, short systolic murmur noted. Lungs reveal bilateral air entry, ventilator-assisted. The rest of physical exam unchanged. Neurological examination was not performed. The patient will have probably a tracheostomy today, MMODL / IJN: [id number] /
[2020-05-31 09:52] LABS: Basophils % (A) 0 %; Eosinophils # (A) 0.2 k/uL (0-0.7); Eosinophils % (A) 2 %; HCT 26.7 % (39.0-53.0); Lymphocytes # (A) 1.2 k/uL (1.0-4.8); Lymphocytes % (A) 14 %; MCH 30.7 pg (25.0-35.0); MCHC 33.8 g/dL (31.0-37.0); MCV 90.7 fL (80.0-100.0); Mean Platelet Volume 8.2; Monocytes # (A) 0.4 k/uL (0-1.0); Monocytes % (A) 5 %; Neutrophils # (A) 6.6 k/uL (1.3-7.7); Neutrophils % (A) 77 %; Platelet Count 330 k/uL (150-450); RBC 2.95 m/uL (4.30-5.90); RDW 13.7 % (11.5-15.5); WBC 8.6 k/uL (3.8-10.6)
[2020-05-31 10:10] LABS: Glucose,Whole Blood 100 mg/dL (75-99)
[2020-05-31 11:02] LABS: Glucose,Whole Blood 93 mg/dL (75-99)
[2020-05-31 11:48] LABS: Glucose,Whole Blood 88 mg/dL (75-99)
[2020-05-31] MEDS ORDERED: ePHEDrine SULFATE/0.9% NACL/PF 50 MG/5 ML SYRINGE IV ONE (11:58)
[2020-05-31] MEDS ORDERED: WATER FOR INJECTION, STERILE 10 ML VIAL IV ONE (11:58)
[2020-05-31] MEDS ORDERED: ROCURONIUM 10 MG/ML (10 ML VIAL) IV ONE (11:58)
[2020-05-31] MEDS ORDERED: fentaNYL (PF) 50 MCG/ML 2 ML AMP ONE (11:58)
[2020-05-31] MEDS ORDERED: PROPOFOL 10 MG/ML 20 ML VIAL IV ONE (11:58)
[2020-05-31 13:43] LABS: Glucose,Whole Blood 101 mg/dL (75-99)
[2020-05-31] MEDS: LEVOFLOXACIN 500 MG TAB PO SCH (13:51)
[2020-05-31] MEDS: METOPROLOL TARTRATE 25 MG TAB NG-TUBE SCH ×2 (13:51→20:36)
[2020-05-31] MEDS: ATORVASTATIN 40 MG TAB PO SCH (13:51)
[2020-05-31] MEDS: QUEtiapine 25 MG TAB PO SCH ×2 (13:51→20:37)
[2020-05-31] MEDS: CLOPIDOGREL 75 MG TAB PO SCH (13:51)
[2020-05-31] MEDS: polyethylene glycoL 3350 17 GM POWD.PACK PO SCH (13:52)
[2020-05-31] MEDS: ASPIRIN 325 MG TAB NG-TUBE SCH (13:54)
--- NOTE | 2020-05-31 13:55 | P.PN ---
Subjective Progress Note Date: 05/31/20 CHIEF COMPLAINT: Patient is status post CABG HISTORY OF PRESENT ILLNESS: Patient remains in the ICU. He is intubated and sedated. Patient is status post PEG tube placement. Patient is tolerating tube feedings. He is having difficulty being weaned from the vent. Patient is scheduled for tracheostomy placement with Dr. Boone today. Patient had temp of 100 last night. WBC 9.1 PHYSICAL EXAM: VITAL SIGNS: Reviewed. GENERAL: Well-developed in no acute distress. HEENT: No sclera icterus. Extraocular movements grossly intact. Moist buccal mucosa. Head is atraumatic, normocephalic. ABDOMEN: Soft. Nondistended. Nontender. NEUROLOGIC: Intubated and sedated ASSESSMENT: 1. Coronary artery disease status post three-vessel CABG 2. Severe protein calorie malnutrition status post PEG tube placement PLAN: -Continue supportive care -Continue tube feedings Physician [employer] note has been reviewed by physician. Signing provider agrees with the documented findings, assessment, and plan of care. Objective - Vital Signs Vital signs: Vital Signs Temp 98.9 F 05/31/20 08:00 Pulse 68 05/31/20 12:00 Resp 13 05/31/20 12:00 BP 112/62 05/31/20 12:00 Pulse Ox 100 05/31/20 12:00 Intake & Output 05/30/20 05/31/20 05/31/20 18:59 06:59 18:59 Intake Total 1325.353 797.436 814.031 Output Total 1295 485 665 Balance 30.353 312.436 149.031 Weight 87.6 kg 87.6 kg Intake: IV 340 240 800 LR 240 240 800 Levofloxacin 500Mg-D5w 100 Pmx 500 mg In Dextrose/ Water 1 100ml.bag @ 100 mls/hr IVPB Q24H [facility] Rx#: [id number] Intake, IV Titration 205.353 107.436 14.031 Amount Insulin Regular 100 unit 5.353 37.193 14.031 In Sodium Chloride 0.9% 100 ml @ Per Protocol IV .Q0M [facility] Rx#:[id number] propofoL 1,000 mg In 200 70.243 Empty Bag 1 bag @ Titrate IV .Q0M [facility] Rx#: [id number] Tube Feeding 750 450 Other 30 Output: Urine 1295 485 660 Estimated Blood Loss 5 Other: Voiding Method Indwelling Catheter Indwelling Catheter Indwelling Catheter # Bowel Movements 0 ABP, PAP, CO, CI - Last Documented Arterial Blood Pressure 103/42 Pulmonary Artery Pressure 32/15 Cardiac Output 4.4 Cardiac Index 2.2 - Labs CBC & Chem 7: 05/31/20 09:20 05/31/20 03:41 Labs: Abnormal Lab Results - Last 24 Hours (Table) 05/30/20 05/30/20 05/30/20 Range/Units 17:21 18:13 19:05 RBC (4.30-5.90) m/uL Hgb (13.0-17.5) gm/dL Hct (39.0-53.0) % ABG pH (7.35-7.45) ABG pO2 (83-108) mmHg ABG HCO3 (21-25) mmol/L ABG Total CO2 (19-24) mmol/L ABG O2 Saturation (94-97) % Sodium (137-145) mmol/L Carbon Dioxide (22-30) mmol/L Glucose (74-99) mg/dL POC Glucose (mg/dL) 202 H 201 H 181 H (75-99) mg/dL Calcium (8.4-10.2) mg/dL Total Protein (6.3-8.2) g/dL Albumin (3.5-5.0) g/dL 05/30/20 05/30/20 05/31/20 Range/Units 21:57 22:55 00:27 RBC (4.30-5.90) m/uL Hgb (13.0-17.5) gm/dL Hct (39.0-53.0) % ABG pH (7.35-7.45) ABG pO2 (83-108) mmHg ABG HCO3 (21-25) mmol/L ABG Total CO2 (19-24) mmol/L ABG O2 Saturation (94-97) % Sodium (137-145) mmol/L Carbon Dioxide (22-30) mmol/L Glucose (74-99) mg/dL POC Glucose (mg/dL) 113 H 110 H 125 H (75-99) mg/dL Calcium (8.4-10.2) mg/dL Total Protein (6.3-8.2) g/dL Albumin (3.5-5.0) g/dL 05/31/20 05/31/20 05/31/20 Range/Units 01:19 02:21 03:36 RBC (4.30-5.90) m/uL Hgb (13.0-17.5) gm/dL Hct (39.0-53.0) % ABG pH (7.35-7.45) ABG pO2 (83-108) mmHg ABG HCO3 (21-25) mmol/L ABG Total CO2 (19-24) mmol/L ABG O2 Saturation (94-97) % Sodium (137-145) mmol/L Carbon Dioxide (22-30) mmol/L Glucose (74-99) mg/dL POC Glucose (mg/dL) 114 H 138 H 128 H (75-99) mg/dL Calcium (8.4-10.2) mg/dL Total Protein (6.3-8.2) g/dL Albumin (3.5-5.0) g/dL 05/31/20 05/31/20 05/31/20 Range/Units 03:41 03:41 04:12 RBC 3.04 L (4.30-5.90) m/uL Hgb 9.2 L (13.0-17.5) gm/dL Hct 27.6 L (39.0-53.0) % ABG pH (7.35-7.45) ABG pO2 (83-108) mmHg ABG HCO3 (21-25) mmol/L ABG Total CO2 (19-24) mmol/L ABG O2 Saturation (94-97) % Sodium 136 L (137-145) mmol/L Carbon Dioxide 33 H (22-30) mmol/L Glucose 136 H (74-99) mg/dL POC Glucose (mg/dL) 131 H (75-99) mg/dL Calcium 8.2 L (8.4-10.2) mg/dL Total Protein 5.0 L (6.3-8.2) g/dL Albumin 2.4 L (3.5-5.0) g/dL 05/31/20 05/31/20 05/31/20 Range/Units 04:49 05:10 06:15 RBC (4.30-5.90) m/uL Hgb (13.0-17.5) gm/dL Hct (39.0-53.0) % ABG pH 7.57 H* (7.35-7.45) ABG pO2 138 H (83-108) mmHg ABG HCO3 32 H (21-25) mmol/L ABG Total CO2 33 H (19-24) mmol/L ABG O2 Saturation 100.0 H (94-97) % Sodium (137-145) mmol/L Carbon Dioxide (22-30) mmol/L Glucose (74-99) mg/dL POC Glucose (mg/dL) 112 H 146 H (75-99) mg/dL Calcium (8.4-10.2) mg/dL Total Protein (6.3-8.2) g/dL Albumin (3.5-5.0) g/dL 05/31/20 05/31/20 05/31/20 Range/Units 07:09 08:12 09:04 RBC (4.30-5.90) m/uL Hgb (13.0-17.5) gm/dL Hct (39.0-53.0) % ABG pH (7.35-7.45) ABG pO2 (83-108) mmHg ABG HCO3 (21-25) mmol/L ABG Total CO2 (19-24) mmol/L ABG O2 Saturation (94-97) % Sodium (137-145) mmol/L Carbon Dioxide (22-30) mmol/L Glucose (74-99) mg/dL POC Glucose (mg/dL) 141 H 129 H 119 H (75-99) mg/dL Calcium (8.4-10.2) mg/dL Total Protein (6.3-8.2) g/dL Albumin (3.5-5.0) g/dL 05/31/20 05/31/20 05/31/20 Range/Units : 10:07 13:42 RBC 2.95 L (4.30-5.90) m/uL Hgb 9.0 L (13.0-17.5) gm/dL Hct 26.7 L (39.0-53.0) % ABG pH (7.35-7.45) ABG pO2 (83-108) mmHg ABG HCO3 (21-25) mmol/L ABG Total CO2 (19-24) mmol/L ABG O2 Saturation (94-97) % Sodium (137-145) mmol/L Carbon Dioxide (22-30) mmol/L Glucose (74-99) mg/dL POC Glucose (mg/dL) 100 H 101 H (75-99) mg/dL Calcium (8.4-10.2) mg/dL Total Protein (6.3-8.2) g/dL Albumin (3.5-5.0) g/dL Microbiology - Last 24 Hours (Table) 05/26/20 09:53 Blood Culture - Preliminary Blood No Growth after 120 hours
--- NOTE | 2020-05-31 14:05 | XR ---
EXAMINATION TYPE: XR chest 1V portable DATE OF EXAM: 05/31/2020 COMPARISON: 05/31/2020 INDICATION: Post tracheostomy TECHNIQUE: Single frontal view of the chest is obtained. FINDINGS: The heart size is probably prominent. The pulmonary vasculature is normal. Tracheostomy has been placed with the tip above the roro. Left lower lobe infiltrate is silhouettin g the diaphragm. Right lower lobe infiltrate has improved. IMPRESSION: 1. Tracheostomy tube with tip above roro. 2. Left pleural effusion and/or atelectasis silhouetting the left diaphragm.
[2020-05-31] MEDS: bisacodyL 10 MG SUPP RECTAL PRN (14:24)
--- NOTE | 2020-05-31 15:05 | P.PN ---
Subjective Progress Note Date: 05/31/20 Marcos Perez is a 74 yo M with PMH of CAD, hx CVA with residual dementia, T2DM, HTN, HLD who is admitted s/p CABG. He is doing well today, hemodynamically stable and extubated, upright in chair. His sugars are controlled on insulin drip. Pt remains confused and agitated this morning, unable to remember the reason he is hospitalized and trying to remove lines and refusing oral medications. He has no specific concerns for me today. 05/24/2020 Seroquel initiated yesterday. pyridine recovery operator remains at bedside Patient's agitation/combativeness /impulsiveness improving-fluctuates. No further Haldol/Ativan since yesterday. Mediastinal chest tube removed. Currently on Cleveprex drip. Blood sugars controlled. Chest x-ray reporting continued mild pulmonary vascular congestion with slight improvement in bilateral base aeration. Prominent air persists below the right hemidiaphragm. Maintaining O2 sats in the 90s on 2 L nasal cannula. Afebrile, WBC 12.6. 05/25/2020 He remains on seroquel and precedex drip, he has been intermittently agitated pulling at lines and confused. Pt's vitals and glucose are well controlled today. CT head repeated and no interval change. Pt unable to take PO nutrition and enteral feedings started. 05/26/2020 Re-intubated during the night, FiO2 recently decreased to 25%/+5 of PEEP. ABGs noted. Chest x-ray reported improving lung markings with left base infiltrate.Continues on diprovan and small dose of Levophed drips. Tenacious secretions from endotracheal tube. Sputum culture pending. Afebrile. Urine culture pending. 05/29/20 remains vent dependent, FiO2 25%/+5 of PEEP. Continues on diprovan drip. Chest x-ray reporting continued small left effusion with left basilar retrocardiac atelectasis and/or consolidation. IV Levaquin initiated yesterday. Received a dose of Lasix yesterday with 24-hour I&O reflecting a negative fluid balance. T-max 100.1. Covid results pending. Urine and sputum cultures reporting no growth, blood cultures pending. Staff reports midsternal incision site with minimal serous drainage. Telemetry sinus rhythm. Blood sugars controlled on Levemir. PEG tube placed yesterday, tolerated procedure well. Resuming tube feeding today. 05/30/2020 chest x-ray reported no significant change .extubated early this morn ing, unable to tolerate, reintubated. ABGs noted. Maintained on 40% FiO2/+5 of PEEP. Sedated on diprovan drip. Scheduled for tracheostomy tomorrow. Received a dose of Lasix yesterday with 24-hour I&O reflecting nearly a zero balance.Continues on Levaquin. Sputum culture reporting normal respiratory mattie. Urine culture no growth at 18 hours .Blood sugars ranging from 150s to 250s. Received suppository yesterday, no bowel movement, receiving another suppository today. 05/31/2020 remains vent dependent, 40% FiO2/+5 of PEEP. .Scheduled for tracheostomy today. Chest x-ray reporting small bilateral pleural effusions, bibasilar infiltrates. Maintained on diprovan and insulin drips. No pressors. Blood sugars controlled Telemetry sinus rhythm. T-max 100.9, normal WBC. ABGs noted, bicarb 33. Objective - Vital Signs Vital signs: Vital Signs Temp 98.9 F 05/31/20 08:00 Pulse 73 05/31/20 14:00 Resp 7 L 05/31/20 14:00 BP 168/72 05/31/20 14:00 Pulse Ox 97 05/31/20 14:00 Intake & Output 05/30/20 05/31/20 05/31/20 18:59 06:59 18:59 Intake Total 1325.353 797.436 934.031 Output Total 1295 485 725 Balance 30.353 312.436 209.031 Weight 87.6 kg 87.6 kg Intake: IV 340 240 820 LR 240 240 820 Levofloxacin 500Mg-D5w 100 Pmx 500 mg In Dextrose/ Water 1 100ml.bag @ 100 mls/hr IVPB Q24H [facility] Rx#: [id number] Intake, IV Titration 205.353 107.436 114.031 Amount Insulin Regular 100 unit 5.353 37.193 14.031 In Sodium Chloride 0.9% 100 ml @ Per Protocol IV .Q0M [facility] Rx#:[id number] propofoL 1,000 mg In 200 70.243 100 Empty Bag 1 bag @ Titrate IV .Q0M [facility] Rx#: [id number] Tube Feeding 750 450 Other 30 Output: Urine 1295 485 720 Estimated Blood Loss 5 Other: Voiding Method Indwelling Catheter Indwelling Catheter Indwelling Catheter # Bowel Movements 0 ABP, PAP, CO, CI - Last Documented Arterial Blood Pressure 103/42 Pulmonary Artery Pressure 32/15 Cardiac Output 4.4 Cardiac Index 2.2 - Exam General: sedated and reintubated on mechanical ventilation. Eyes: PERRL, conjunctiva normal. HENT: normocephalic, atraumatic, OG tube present. Neck: supple, no JVD. Lungs: normal respiratory effort, bilateral bases diminished. Mediastinal incision site clean and dry. CV: Regular rate and rhythm, no murmur. Peripheral pulses 2+ Abdomen: soft, nondistended, no organomegaly, PEG tube present. Umbilical hernia present. Skin: warm and dry. Neuro: Unable to assess at this time secondary to patient intubated and sedated. - Labs CBC & Chem 7: 05/31/20 09:20 05/31/20 03:41 Labs: Abnormal Lab Results - Last 24 Hours (Table) 05/30/20 05/30/20 05/30/20 Range/Units 17:21 18:13 19:05 RBC (4.30-5.90) m/uL Hgb (13.0-17.5) gm/dL Hct (39.0-53.0) % ABG pH (7.35-7.45) ABG pO2 (83-108) mmHg ABG HCO3 (21-25) mmol/L ABG Total CO2 (19-24) mmol/L ABG O2 Saturation (94-97) % Sodium (137-145) mmol/L Carbon Dioxide (22-30) mmol/L Glucose (74-99) mg/dL POC Glucose (mg/dL) 202 H 201 H 181 H (75-99) mg/dL Calcium (8.4-10.2) mg/dL Total Protein (6.3-8.2) g/dL Albumin (3.5-5.0) g/dL 05/30/20 05/30/20 05/31/20 Range/Units 21:57 22:55 00:27 RBC (4.30-5.90) m/uL Hgb (13.0-17.5) gm/dL Hct (39.0-53.0) % ABG pH (7.35-7.45) ABG pO2 (83-108) mmHg ABG HCO3 (21-25) mmol/L ABG Total CO2 (19-24) mmol/L ABG O2 Saturation (94-97) % Sodium (137-145) mmol/L Carbon Dioxide (22-30) mmol/L Glucose (74-99) mg/dL POC Glucose (mg/dL) 113 H 110 H 125 H (75-99) mg/dL Calcium (8.4-10.2) mg/dL Total Protein (6.3-8.2) g/dL Albumin (3.5-5.0) g/dL 05/31/20 05/31/20 05/31/20 Range/Units 01:19 02:21 03:36 RBC (4.30-5.90) m/uL Hgb (13.0-17.5) gm/dL Hct (39.0-53.0) % ABG pH (7.35-7.45) ABG pO2 (83-108) mmHg ABG HCO3 (21-25) mmol/L ABG Total CO2 (19-24) mmol/L ABG O2 Saturation (94-97) % Sodium (137-145) mmol/L Carbon Dioxide (22-30) mmol/L Glucose (74-99) mg/dL POC Glucose (mg/dL) 114 H 138 H 128 H (75-99) mg/dL Calcium (8.4-10.2) mg/dL Total Protein (6.3-8.2) g/dL Albumin (3.5-5.0) g/dL 05/31/20 05/31/20 05/31/20 Range/Units 03:41 03:41 04:12 RBC 3.04 L (4.30-5.90) m/uL Hgb 9.2 L (13.0-17.5) gm/dL Hct 27.6 L (39.0-53.0) % ABG pH (7.35-7.45) ABG pO2 (83-108) mmHg ABG HCO3 (21-25) mmol/L ABG Total CO2 (19-24) mmol/L ABG O2 Saturation (94-97) % Sodium 136 L (137-145) mmol/L Carbon Dioxide 33 H (22-30) mmol/L Glucose 136 H (74-99) mg/dL POC Glucose (mg/dL) 131 H (75-99) mg/dL Calcium 8.2 L (8.4-10.2) mg/dL Total Protein 5.0 L (6.3-8.2) g/dL Albumin 2.4 L (3.5-5.0) g/dL 05/31/20 05/31/20 05/31/20 Range/Units 04:49 05:10 06:15 RBC (4.30-5.90) m/uL Hgb (13.0-17.5) gm/dL Hct (39.0-53.0) % ABG pH 7.57 H* (7.35-7.45) ABG pO2 138 H (83-108) mmHg ABG HCO3 32 H (21-25) mmol/L ABG Total CO2 33 H (19-24) mmol/L ABG O2 Saturation 100.0 H (94-97) % Sodium (137-145) mmol/L Carbon Dioxide (22-30) mmol/L Glucose (74-99) mg/dL POC Glucose (mg/dL) 112 H 146 H (75-99) mg/dL Calcium (8.4-10.2) mg/dL Total Protein (6.3-8.2) g/dL Albumin (3.5-5.0) g/dL 05/31/20 05/31/20 05/31/20 Range/Units 07:09 08:12 09:04 RBC (4.30-5.90) m/uL Hgb (13.0-17.5) gm/dL Hct (39.0-53.0) % ABG pH (7.35-7.45) ABG pO2 (83-108) mmHg ABG HCO3 (21-25) mmol/L ABG Total CO2 (19-24) mmol/L ABG O2 Saturation (94-97) % Sodium (137-145) mmol/L Carbon Dioxide (22-30) mmol/L Glucose (74-99) mg/dL POC Glucose (mg/dL) 141 H 129 H 119 H (75-99) mg/dL Calcium (8.4-10.2) mg/dL Total Protein (6.3-8.2) g/dL Albumin (3.5-5.0) g/dL 05/31/20 05/31/20 05/31/20 Range/Units 09:20 10:07 13:42 RBC 2.95 L (4.30-5.90) m/uL Hgb 9.0 L (13.0-17.5) gm/dL Hct 26.7 L (39.0-53.0) % ABG pH (7.35-7.45) ABG pO2 (83-108) mmHg ABG HCO3 (21-25) mmol/L ABG Total CO2 (19-24) mmol/L ABG O2 Saturation (94-97) % Sodium (137-145) mmol/L Carbon Dioxide (22-30) mmol/L Glucose (74-99) mg/dL POC Glucose (mg/dL) 100 H 101 H (75-99) mg/dL Calcium (8.4-10.2) mg/dL Total Protein (6.3-8.2) g/dL Albumin (3.5-5.0) g/dL Microbiology - Last 24 Hours (Table) 05/26/20 09:53 Blood Culture - Preliminary Blood No Growth after 120 hours Assessment and Plan Assessment: (1) acute hypoxic respiratory failure, requiring reintubation X2. Failure to wean. (2) Status post coronary artery bypass graft Current Visit: Yes Status: Acute Code(s): Z95.1 - PRESENCE OF AORTOCORONARY BYPASS GRAFT SNOMED Code(s): 863541705 (3)Triple vessel coronary artery disease Current Visit: Yes Status: Acute Code(s): I25.10 - ATHSCL HEART DISEASE OF [place] CORONARY ARTERY W/O ANG PCTRS SNOMED Code(s): 082667174 (4) History of CVA with residual deficit Current Visit: Yes Status: Acute Code(s): I69.30 - UNSPECIFIED SEQUELAE OF CEREBRAL INFARCTION SNOMED Code(s): 503067392 (5) Type 2 diabetes mellitus Current Visit: Yes Status: Acute Code(s): E11.9 - TYPE 2 DIABETES MELLITUS WITHOUT COMPLICATIONS SNOMED Code(s): 63146055 (6) Dementia Current Visit: Yes Status: Acute Code(s): F03.90 - UNSPECIFIED DEMENTIA WITHOUT BEHAVIORAL DISTURBANCE SNOMED Code(s): 13815641 (7) Cerebral infarction, remote, resolved Current Visit: No Status: Acute Code(s): Z86.73 - PRSNL HX OF TIA (TIA), AND CEREB INFRC W/O RESID DEFICITS SNOMED Code(s): 672200852 (8) PEG tube placement (9) severe protein calorie malnutrition Plan: Continue current medication regime ,monitoring and symptomatic treatment. Tracheostomy today. Dietary consult in place. Close monitoring of Accu-Cheks. Prognosis guarded given multiple complex medical issues. The impression and plan of care has been dictated as directed. : I performed a history and examination of this patient, discussed the same with the dictator. I agree with the dictator's note ,documented as a scribe. Any additional findings or plans will be noted.
[2020-05-31 15:33] LABS: Glucose,Whole Blood 110 mg/dL (75-99)
[2020-05-31 17:10] LABS: Glucose,Whole Blood 108 mg/dL (75-99)
[2020-05-31 18:55] LABS: Glucose,Whole Blood 102 mg/dL (75-99)
--- NOTE | 2020-05-31 20:32 | OP ---
OPERATIVE REPORT DATE OF OPERATION: 05/31/2020 PREOPERATIVE DIAGNOSIS: Respiratory failure. POSTOPERATIVE DIAGNOSIS: Respiratory failure. PROCEDURE: Tracheostomy with a #8 Shiley low-pressure cuffed tracheostomy tube. ANESTHESIA: General. BLOOD LOSS: 20 mL. SUMMARY: Patient was brought to the operating room and placed in supine position. After administration of a general anesthetic, the neck was prepped, draped and positioned using chlorhexidine paint. A 2-3 cm incision was made transverse, 2 cm superior to the sternal notches in the midline. The platysma was divided. The strap muscles were divided vertically, and the second tracheal ring was identified. Using a tracheal hook, the cricoid cartilage was grasped with the hook and reflected superiorly. The patient was put on humidified air. The opening in the trachea was made. The second tracheal ring was excised. At this point the endotracheal tube was brought back. A #8 Shiley low- pressure cuffed ET tube was inserted in the trachea. There was good end-tidal CO2 return with excellent ventilatory pressures and good oxygenation. The skin and platysma were reapproximated using 3-0 nylon vertical mattress sutures. The trach tie was placed and then the external trach cuff was secured to the skin using 2-0 Prolene interrupted sutures on all 4 corners. There were no complications. Patient tolerated the procedure well and was taken to the ICU in critical but stable condition. ROSARIO / CONOR: [id number] /
[2020-05-31] MEDS: SENNOSIDES-DOCUSATE SODIUM 1 EACH TAB PO SCH (20:36)
[2020-05-31] MEDS: LACTATED RINGERS 1,000 ML IV SCH (20:37)
[2020-05-31 20:47] LABS: Glucose,Whole Blood 176 mg/dL (75-99)
[2020-05-31 22:05] LABS: Glucose,Whole Blood 202 mg/dL (75-99)
[2020-05-31 23:03] LABS: Glucose,Whole Blood 205 mg/dL (75-99)
[2020-06-01 00:09] LABS: Glucose,Whole Blood 161 mg/dL (75-99)
[2020-06-01 01:09] LABS: Glucose,Whole Blood 165 mg/dL (75-99)
[2020-06-01] MEDS: INSULIN REGULAR 100 UNIT in SODIUM CHLORIDE 0.9% 100 ML IV SCH (01:13)
[2020-06-01] MEDS: IPRATROPIUM-ALBUTEROL 3 ML NEB INHALATION SCH ×6 (01:16→19:28)
[2020-06-01 02:14] LABS: Glucose,Whole Blood 173 mg/dL (75-99)
[2020-06-01 03:18] LABS: Glucose,Whole Blood 174 mg/dL (75-99)
[2020-06-01 04:16] LABS: Glucose,Whole Blood 139 mg/dL (75-99)
[2020-06-01 04:25] LABS: Basophils % (A) 0 %; Eosinophils # (A) 0.3 k/uL (0-0.7); Eosinophils % (A) 3 %; HCT 29.8 % (39.0-53.0); HGB 9.4 gm/dL (13.0-17.5); Hypochromasia Slight; Lymphocytes % (A) 11 %; MCH 28.8 pg (25.0-35.0); MCHC 31.7 g/dL (31.0-37.0); MCV 90.7 fL (80.0-100.0); Mean Platelet Volume 8.2; Monocytes # (A) 0.5 k/uL (0-1.0); Monocytes % (A) 5 %; Neutrophils # (A) 7.2 k/uL (1.3-7.7); Neutrophils % (A) 79 %; Platelet Count 389 k/uL (150-450); RBC 3.28 m/uL (4.30-5.90); RDW 13.9 % (11.5-15.5); WBC 9.1 k/uL (3.8-10.6)
[2020-06-01 04:42] LABS: ALT 22 U/L (4-49); AST 35 U/L (17-59); African American GFR (CKD) >90 (>60 ml/min/1.73 sqM); Albumin 2.5 g/dL (3.5-5.0); Alkaline Phosphatase 59 U/L (38-126); Anion Gap 4 mmol/L; Blood Urea Nitrogen 20 mg/dL (9-20); Carbon Dioxide 31 mmol/L (22-30); Chloride 98 mmol/L (98-107); Glucose 135 mg/dL (74-99); Magnesium 2.3 mg/dL (1.6-2.3); Non-African American GFR(CKD) >90 (>60 ml/min/1.73 sqM); Potassium 4.2 mmol/L (3.5-5.1); Sodium 133 mmol/L (137-145); Total Bilirubin 0.6 mg/dL (0.2-1.3); Total Protein 5.3 g/dL (6.3-8.2)
[2020-06-01 05:15] LABS: Glucose,Whole Blood 125 mg/dL (75-99)
[2020-06-01] MEDS: HEPARIN SODIUM,PORCINE 5,000 UNIT/ML 1 ML VIAL SQ SCH ×3 (05:57→20:11)
[2020-06-01 06:19] LABS: Glucose,Whole Blood 135 mg/dL (75-99)
[2020-06-01 06:22] LABS: ABG Base Excess 9.9 mmol/L; ABG HCO3 33 mmol/L (21-25); ABG Oxygen Saturation 97.5 % (94-97); ABG PCO2 44 mmHg (35-45); ABG PH 7.49 (7.35-7.45); ABG PO2 92 mmHg (83-108); ABG TCO2 35 mmol/L (19-24); Allen Test Performed? Yes
--- NOTE | 2020-06-01 06:49 | P.PN ---
Subjective Progress Note Date: 06/01/20 74-year-old male patient with post four-vessel bypass surgery. The patient is postop day #7 the patient underwent DOOLEY to LAD and saphenous vein graft to obtuse marginal and PDA. The patient has cardiomyopathy with ejection fraction of 45%. The patient has insulin-dependent diabetes mellitus and the patient has a previous history of CVA including with a short-term memory loss and impulsivity. Postextubation and currently the patient remains on a mechanical ventilator. His cardiac rhythm is sinus. He is hemodynamically stable. The patient remains on assist control mode of ventilation at the rate of 16 with a tidal volume of 450 and FiO2 of 25% and a PEEP of 5. He is post exhibition insertion and the patient will be started on feeding for nutritional support. Sedation is with propofol at a rate of 30mcg per KG per minute and insulin drip is running 4U units an hour for blood sugar control. Chest x-ray showing some retrocardiac infiltration and left basilar airspace disease. The patient is currently on Levaquin as an empiric antibiotic coverage. The patient is on DuoNeb nebulized treatments around the clock, aspirin and Plavix and the patient is also on metoprolol 25 mg by mouth twice a day. The sputum culture has shown no growth. Urine cultures no growth. A CAT scan of the brain that showed no evidence of any acute intracranial hemorrhage or midline shift. This is uncha nged compared to previous CT if the brain of November 2019. The blood gases from today showed a pH of 7.5 with a pCO2 of 40 and pO2 of 79. Peak airway pressures nonelevated at 22. X-ray showing cardiomegaly. If she was in a good location. The patient has pulmonary vessel congestion. There is also bowel loops on the right hemidiaphragm. There is also volume loss and the patient is smaller lung volumes. The patient was given a dose of Lasix 40 mg of push yesterday. His net fluid balance for yesterday is negative 255 mL. urine output is in order of 30-60 mL an hour. Patient is also on Seroquel 50 mg by mouth twice a day. He is on Levemir insulin was introduced for blood sugar control. on 05/30/2020, the patient remains sedated with propofol. He failed a sedation holiday yesterday and the same will be done today. He is currently off of a 4- 30 g per KG per minute and this is being gradually weaned off. I was told that his mental status was not appropriate even preoperatively and discomfort worse postop. In any rate, we are going to give the patient later sedation holiday. The patient is an assist-control mode at the rate of 16 with tidal volume of 450 FiO2 of 25% with a PEEP of 5. Chest x-ray showing pulmonary vascular congestion, small bilateral pleural effusions and cardiomegaly. ET tube is in a good location. No significant orotracheal secretions. Sternal wound is not draining at this point in time and it's dry and clean. His cardiac rhythm is sinus. He is on no pressors. He is receiving enteral feeding for nutritional support. They the patient is on Levemir at 25 units and the patient is also receiving psychiatric coverage. Blood sugars has been in the low 200s. Urine output is adequate for now. No fever. No other active issues for now. He remains on Levaquin. He was given a dose of Lasix yesterday 40 mg IV push and he is in a 0 fluid balance over the past 24 hours. Active site is clean and intact. No abdominal distention. He is postop day #8. He has also an umbilical hernia which is easily reducible.the blood gas from today showed a pH of 7.5 with a pCO2 of 41 and a pO2 of 90 and this was done and FiO2 of 25%. Airway pressures are not elevated. on 05/31/2020, the patient remains intubated. He had a failed extubation yeste rday. Postextubation, he became quite restless and agitated and he had also questioning the stridorous breathing as the patient was having inspiratory and expiratory harsh noise coming from his neck area. Obviously within 10 minutes, decompensated, became hypoxic and hypotensive. I had to be intubated and immediately on an emergency basis. He currently is intubated with a #8 orotracheal tube. He is on a mechanical ventilator. He is an FiO2 of 40% with a PEEP of 5 and tidal volume 450 with a rate of 16. Chest x-ray showing small bilateral pleural effusions. ET tube is in a good location. He is receiving daily Lasix doses. He is pH was at 7.5757 with a pCO2 of 35 and pO2 138. His serum bicarb is at 33. As such she has a combination of respiratory and metabolic alkalosis. He is hemodynamically stable. He is in a normal sinus rhythm. He is not requiring any pressors. Obviously mentation is an ongoing issue with this patient. The plan for now is to proceed with a tracheostomy tube insertion. He already had his PEG tube and an acute visit currently on hold. Otherwise no other significant events overnight. He is producing adequate amount of urine output. Sternal stable clean and intact. nnow on 06/01/2020 commands seeing the patient for a follow-up. The patient is post tracheostomy tube insertion. This morning is calm and comfortable on propofol which is running at 30 mics.this will hopefully gradually weaned off today. Meanwhile, the patient is hemodynamically stable. This morning he is an assist-control mode of ventilation. He is an FiO2 of 40% with tidal volume of 450 and a PEEP of 5 with a respiratory rate of 16. Chest x-ray shows typical postsurgical changes in the tracheostomy is in good location. No acute pulmonary infiltrates.the patient's blood gas showed a pH of 7.49 with a pCO2 of 44 and pO2 of 92. Hemoglobin stable at 9.4. The patient is afebrile. Sternal wound is dry clean and intact. He is receiving bolus feeding. Insulin drip was discontinued as the patient's blood sugar has been under much better control and tighter control for now.no other significant events otherwise. The patient is producing adequate amount of urine output. His net fluid balance over the past 24 hours has been +342 mL. Objective - Vital Signs Vital signs: Vital Signs Temp 99.2 F 06/01/20 04:00 Pulse 67 06/01/20 06:00 Resp 18 06/01/20 06:00 BP 111/59 06/01/20 06:00 Pulse Ox 98 06/01/20 06:00 Intake & Output 05/31/20 05/31/20 06/01/20 06:59 18:59 06:59 Intake Total 249.100 6832.031 1106.911 Output Total 485 1460 392 Balance 312.436 -187.969 714.911 Weight 87.6 kg 87.6 kg 86.9 kg Intake: IV 240 920 220 LR 240 920 220 Intake, IV Titration 107.436 114.031 142.911 Amount Insulin Regular 100 unit 37.193 14.031 64.816 In Sodium Chloride 0.9% 100 ml @ Per Protocol IV .Q0M LIYA Rx#:[id number] propofoL 1,000 mg In 70.243 100 78.095 Empty Bag 1 bag @ Titrate IV .Q0M LIYA Rx#: [id number] Tube Feeding 450 208 624 Other 30 120 Output: Urine 485 1455 392 Estimated Blood Loss 5 Other: Voiding Method Indwelling Catheter Indwelling Catheter Indwelling Catheter # Bowel Movements 0 1 ABP, PAP, CO, CI - Last Documented Arterial Blood Pressure 103/42 Pulmonary Artery Pressure 32/15 Cardiac Output 4.4 Cardiac Index 2.2 - Exam GENERAL EXAM: the patient has a tracheostomy tube in place.asynchronous with a mechanical ventilator. Is calm and comfortable.. Propofol is running at 25 g per KG per minute. HEAD: Normocephalic. EYES: Sluggish reaction of pupils, equal size. NOSE: Oral endotracheal and gastric tube secured in place. Clear with pink turbinates. THROAT: No erythema or exudates., post insertion of a tracheostomy tube, #8 Shiley. NECK: No masses, no JVD. CHEST: Sternal dressing dry and intact. Serous drainage noted from incision. No chest wall deformity.no active drainage from the chest wall wound. No surrounding cellulitis at this point in time. LUNGS: Equal air entry with crackles in the bilateral posterior bases.. CVS: S1 and S2 normal with no audible murmur, regular rhythm. ABDOMEN: No hepatosplenomegaly, normal bowel sounds, no guarding or rigidity.the patient has an umbilical hernia. The patient also has a PEG tube in place SPINE: No scoliosis or deformity SKIN: No rashes CENTRAL NERVOUS SYSTEM: Tone is normal in all 4 extremities. EXTREMITIES: There is no peripheral edema. No clubbing, no cyanosis. Peripheral pulses are intact. - Labs CBC & Chem 7: 06/01/20 04:09 06/01/20 04:09 Labs: Abnormal Lab Results - Last 24 Hours (Table) 05/31/20 05/31/20 05/31/20 Range/Units 07:09 08:12 09:04 RBC (4.30-5.90) m/uL Hgb (13.0-17.5) gm/dL Hct (39.0-53.0) % ABG pH (7.35-7.45) ABG HCO3 (21-25) mmol/L ABG Total CO2 (19-24) mmol/L ABG O2 Saturation (94-97) % Sodium (137-145) mmol/L Carbon Dioxide (22-30) mmol/L Glucose (74-99) mg/dL POC Glucose (mg/dL) 141 H 129 H 119 H (75-99) mg/dL Calcium (8.4-10.2) mg/dL Total Protein (6.3-8.2) g/dL Albumin (3.5-5.0) g/dL 05/31/20 05/31/20 05/31/20 Range/Units :20 10:07 13:42 RBC 2.95 L (4.30-5.90) m/uL Hgb 9.0 L (13.0-17.5) gm/dL Hct 26.7 L (39.0-53.0) % ABG pH (7.35-7.45) ABG HCO3 (21-25) mmol/L ABG Total CO2 (19-24) mmol/L ABG O2 Saturation (94-97) % Sodium (137-145) mmol/L Carbon Dioxide (22-30) mmol/L Glucose (74-99) mg/dL POC Glucose (mg/dL) 100 H 101 H (75-99) mg/dL Calcium (8.4-10.2) mg/dL Total Protein (6.3-8.2) g/dL Albumin (3.5-5.0) g/dL 05/31/20 05/31/20 05/31/20 Range/Units 15:31 17:09 18:53 RBC (4.30-5.90) m/uL Hgb (13.0-17.5) gm/dL Hct (39.0-53.0) % ABG pH (7.35-7.45) ABG HCO3 (21-25) mmol/L ABG Total CO2 (19-24) mmol/L ABG O2 Saturation (94-97) % Sodium (137-145) mmol/L Carbon Dioxide (22-30) mmol/L Glucose (74-99) mg/dL POC Glucose (mg/dL) 110 H 108 H 102 H (75-99) mg/dL Calcium (8.4-10.2) mg/dL Total Protein (6.3-8.2) g/dL Albumin (3.5-5.0) g/dL 05/31/20 05/31/20 05/31/20 Range/Units 20:46 22:03 23:01 RBC (4.30-5.90) m/uL Hgb (13.0-17.5) gm/dL Hct (39.0-53.0) % ABG pH (7.35-7.45) ABG HCO3 (21-25) mmol/L ABG Total CO2 (19-24) mmol/L ABG O2 Saturation (94-97) % Sodium (137-145) mmol/L Carbon Dioxide (22-30) mmol/L Glucose (74-99) mg/dL POC Glucose (mg/dL) 176 H 202 H 205 H (75-99) mg/dL Calcium (8.4-10.2) mg/dL Total Protein (6.3-8.2) g/dL Albumin (3.5-5.0) g/dL 06/01/20 06/01/20 06/01/20 Range/Units 00:08 01:08 02:13 RBC (4.30-5.90) m/uL Hgb (13.0-17.5) gm/dL Hct (39.0-53.0) % ABG pH (7.35-7.45) ABG HCO3 (21-25) mmol/L ABG Total CO2 (19-24) mmol/L ABG O2 Saturation (94-97) % Sodium (137-145) mmol/L Carbon Dioxide (22-30) mmol/L Glucose (74-99) mg/dL POC Glucose (mg/dL) 161 H 165 H 173 H (75-99) mg/dL Calcium (8.4-10.2) mg/dL Total Protein (6.3-8.2) g/dL Albumin (3.5-5.0) g/dL 06/01/20 06/01/20 06/01/20 Range/Units 03:17 04:09 04:09 RBC 3.28 L (4.30-5.90) m/uL Hgb 9.4 L (13.0-17.5) gm/dL Hct 29.8 L (39.0-53.0) % ABG pH (7.35-7.45) ABG HCO3 (21-25) mmol/L ABG Total CO2 (19-24) mmol/L ABG O2 Saturation (94-97) % Sodium 133 L (137-145) mmol/L Carbon Dioxide 31 H (22-30) mmol/L Glucose 135 H (74-99) mg/dL POC Glucose (mg/dL) 174 H (75-99) mg/dL Calcium 8.0 L (8.4-10.2) mg/dL Total Protein 5.3 L (6.3-8.2) g/dL Albumin 2.5 L (3.5-5.0) g/dL 06/01/20 06/01/20 06/01/20 Range/Units 04:14 05:14 06:09 RBC (4.30-5.90) m/uL Hgb (13.0-17.5) gm/dL Hct (39.0-53.0) % ABG pH 7.49 H (7.35-7.45) ABG HCO3 33 H (21-25) mmol/L ABG Total CO2 35 H (19-24) mmol/L ABG O2 Saturation 97.5 H (94-97) % Sodium (137-145) mmol/L Carbon Dioxide (22-30) mmol/L Glucose (74-99) mg/dL POC Glucose (mg/dL) 139 H 125 H (75-99) mg/dL Calcium (8.4-10.2) mg/dL Total Protein (6.3-8.2) g/dL Albumin (3.5-5.0) g/dL 06/01/20 Range/Units 06:17 RBC (4.30-5.90) m/uL Hgb (13.0-17.5) gm/dL Hct (39.0-53.0) % ABG pH (7.35-7.45) ABG HCO3 (21-25) mmol/L ABG Total CO2 (19-24) mmol/L ABG O2 Saturation (94-97) % Sodium (137-145) mmol/L Carbon Dioxide (22-30) mmol/L Glucose (74-99) mg/dL POC Glucose (mg/dL) 135 H (75-99) mg/dL Calcium (8.4-10.2) mg/dL Total Protein (6.3-8.2) g/dL Albumin (3.5-5.0) g/dL Microbiology - Last 24 Hours (Table) 05/26/20 09:53 Blood Culture - Preliminary Blood No Growth after 120 hours Assessment and Plan Plan: 1 Coronary artery disease status post three-vessel coronary artery bypass grafting. Postoperative day #10. For now, the weaning has been complicated as the patient is having difficulties with altered mentation. He is becoming quite agitated and is having difficulties in coming off sedation. he was given a second trial of extubation and he failed miserably and had to be reintubated. Obviously there is a combination of factors including his excessive agitation and restlessness in addition to questionable stridor affecting his upper airway contributing to his respiratory failure. He is currently intubated. patient is popost tracheostomy tube insertion yesterday and is postop day #1. He is being adequately ventilated for now. Chest x-ray shows clearing of the eyes abnormalities. Mental status will be monitored. The patient will be gradually weaned off the propofol for now. 2 Acute hypoxemic respiratory failure requiring reintubation and placed back on the mechanical ventilator on 05/25/2020, unexpected 3 Ischemic cardiomyopathy with ejection fraction 45-50% 4 Hyperlipidemia 5 Diabetes mellitus, currently off insulin for blood sugar control. 6 Chronic bronchial asthma 7 History of chronic tobacco dependence 8 Recent CVA in November 2019 with ongoing altered mental status 9 Hypertension, history of 10 insertion of a PEG tube for enteral feeding 11 questionable sternal wound infection as the patient has some drainage, the drainage is serous at this point in time. plan post tracheostomy tube insertion. Sedation to be weaned off slowly and the mental status will be monitored enteral feeding for nutritional support. Continue Levaquin continue supportive care CC evaluation more than 30 minutes.
[2020-06-01 07:04] LABS: Glucose,Whole Blood 151 mg/dL (75-99)
--- NOTE | 2020-06-01 07:59 | XR ---
EXAMINATION TYPE: XR chest 1V portable DATE OF EXAM: 06/01/2020 CLINICAL HISTORY: Difficulty breathing progress study. TECHNIQUE: Single AP portable semiupright view of the chest is obtained. COMPARISON: Chest x-ray from one day earlier and older studies. FINDINGS: Stable tracheostomy tube. Overlying sternal wires and mediastinal clips redemonstrated. Le ft atrial appendage clip redemonstrated. There is persistent low lung volumes and cardiomegaly with mild central vascular congestion and left greater than right bibasilar opacities. Silhouetting left hemidiaphragm is redemonstrated. Osseous st ructures remain intact. IMPRESSION: Low lung volumes and cardiomegaly with mild central vascular congestion is suspected and left greater than right bibasilar acute infiltrate and/or atelectasis and probable multiple tiny bila teral pleural effusions are all redemonstrated. No significant change from one day earlier.
[2020-06-01] MEDS ORDERED: FUROSEMIDE 10 MG/ML 4 ML VIAL IV STA (08:08)
--- NOTE | 2020-06-01 08:08 | P.PN ---
Subjective Progress Note Date: 06/01/20 Principal diagnosis: Unstable angina, severe calcific 3 vessel coronary artery disease. Previous medical history of recent stroke in November 2019 with continued short-term memory loss and impulsivity, cardiomyopathy with EF 45-50%, hypertension, hyperlipidemia, insulin-dependent diabetes with preoperative hemoglobin A1c 8%, asthma, previous tobacco dependence with preoperative FEV1 75% of predicted, and family history of premature coronary artery disease with father diagnosed less than 60 years old. POD #10 coronary artery bypass grafting 3 with the left internal mammary artery to the left anterior descending artery, reverse saphenous vein graft off the aorta to the first obtuse marginal artery and the posterior descending artery with endoscopic vein harvesting of the left lower extremity greater saphenous vein, clip ligation of the left atrial appendage with a 35 mm AtriClip and intraoperative transesophageal echocardiogram. Postoperative acute blood loss anemia and thrombocytopenia, expected outcomes given hemodilution and cardiopulmonary bypass pump Acute hypoxic respiratory failure requiring re-intubation, unexpected POD #4 PEG tube placement POD #1 Tracheostomy placement The patient is laying in the ICU sedated on mechanical ventilation, stable. Rem ains in normal sinus rhythm, hemodynamically stable on no pressors. No new events overnight. Sister was updated by phone yesterday. Objective - Vital Signs Vital signs: Vital Signs Temp 99.2 F 06/01/20 04:00 Pulse 71 06/01/20 07:16 Resp 20 06/01/20 07:00 BP 115/54 06/01/20 07:00 Pulse Ox 98 06/01/20 07:00 Intake & Output 05/31/20 06/01/20 06/01/20 18:59 06:59 18:59 Intake Total 3104.149 0911.911 26.582 Output Total 1460 392 30 Balance -187.969 714.911 -3.418 Weight 87.6 kg 86.9 kg Intake: IV 920 220 20 LR 920 220 20 Intake, IV Titration 114.031 142.911 6.582 Amount Insulin Regular 100 unit 14.031 64.816 6.582 In Sodium Chloride 0.9% 100 ml @ Per Protocol IV .Q0M LIYA Rx#:[id number] propofoL 1,000 mg In 100 78.095 Empty Bag 1 bag @ Titrate IV .Q0M LIYA Rx#: [id number] Tube Feeding 208 624 Other 30 120 Output: Urine 1455 392 30 Estimated Blood Loss 5 Other: Voiding Method Indwelling Catheter Indwelling Catheter # Bowel Movements 0 1 ABP, PAP, CO, CI - Last Documented Arterial Blood Pressure 103/42 Pulmonary Artery Pressure 32/15 Cardiac Output 4.4 Cardiac Index 2.2 - Constitutional General appearance: Present: no acute distress - Respiratory Details: Lungs sounds diminished bilaterally. Respirations even, nonlabored on mechanical ventilation. Current vent settings FiO2 40%, TV 400, RR 16, PEEP 5. ABGs this AM on those settings 7.49/44/92/33/97%/9.9 on those settings. 8.0 Shiley tracheostomy present - Cardiovascular Details: S1, S2 present. Regular rate and rhythm, sinus rhythm on telemetry with heart rate in the 60-70s. Sternum stable. Palpable peripheral pulses bilaterally. Trace upper extremity edema present. Heart hugger in place, antiembolism stockings, SCDs present. - Gastrointestinal Gastrointestinal Comment(s): Abdomen soft, nontender, nondistended. Active bowel sounds present 4 quadrants. PEG tube in place, bolus tube feedings infusing per RD. Last BM 06/01/20 per nursing - Genitourinary Genitourinary Comment(s): Hearn present draining clear yellow urine. Output 30-35 mL per hour overnight, 1850 mL in the last 24 hours - Integumentary Integumentary Comment(s): Skin is warm and dry. Anterior chest incision well approximated, small amount serous drainage present, no purulent drainage. Left lower extremity EVH site well approximated without redness or drainage. PEG tube incision without redness. Trach incision with small amount blood tinged drainage - Neurologic Neurologic Comment(s): sedated on mechanical ventilation, does open eyes and moves extremities although not to command - Allied health notes Allied health notes reviewed: nursing - Labs CBC & Chem 7: 06/01/20 04:09 06/01/20 04:09 Labs: Abnormal Lab Results - Last 24 Hours (Table) 05/31/20 05/31/20 05/31/20 Range/Units 08:12 09:04 09:20 RBC 2.95 L (4.30-5.90) m/uL Hgb 9.0 L (13.0-17.5) gm/dL Hct 26.7 L (39.0-53.0) % ABG pH (7.35-7.45) ABG HCO3 (21-25) mmol/L ABG Total CO2 (19-24) mmol/L ABG O2 Saturation (94-97) % Sodium (137-145) mmol/L Carbon Dioxide (22-30) mmol/L Glucose (74-99) mg/dL POC Glucose (mg/dL) 129 H 119 H (75-99) mg/dL Calcium (8.4-10.2) mg/dL Total Protein (6.3-8.2) g/dL Albumin (3.5-5.0) g/dL 05/31/20 05/31/20 05/31/20 Range/Units 10:07 13:42 15:31 RBC (4.30-5.90) m/uL Hgb (13.0-17.5) gm/dL Hct (39.0-53.0) % ABG pH (7.35-7.45) ABG HCO3 (21-25) mmol/L ABG Total CO2 (19-24) mmol/L ABG O2 Saturation (94-97) % Sodium (137-145) mmol/L Carbon Dioxide (22-30) mmol/L Glucose (74-99) mg/dL POC Glucose (mg/dL) 100 H 101 H 110 H (75-99) mg/dL Calcium (8.4-10.2) mg/dL Total Protein (6.3-8.2) g/dL Albumin (3.5-5.0) g/dL 05/31/20 05/31/20 05/31/20 Range/Units 17:09 18:53 20:46 RBC (4.30-5.90) m/uL Hgb (13.0-17.5) gm/dL Hct (39.0-53.0) % ABG pH (7.35-7.45) ABG HCO3 (21-25) mmol/L ABG Total CO2 (19-24) mmol/L ABG O2 Saturation (94-97) % Sodium (137-145) mmol/L Carbon Dioxide (22-30) mmol/L Glucose (74-99) mg/dL POC Glucose (mg/dL) 108 H 102 H 176 H (75-99) mg/dL Calcium (8.4-10.2) mg/dL Total Protein (6.3-8.2) g/dL Albumin (3.5-5.0) g/dL 05/31/20 05/31/20 06/01/20 Range/Units 22:03 23:01 00:08 RBC (4.30-5.90) m/uL Hgb (13.0-17.5) gm/dL Hct (39.0-53.0) % ABG pH (7.35-7.45) ABG HCO3 (21-25) mmol/L ABG Total CO2 (19-24) mmol/L ABG O2 Saturation (94-97) % Sodium (137-145) mmol/L Carbon Dioxide (22-30) mmol/L Glucose (74-99) mg/dL POC Glucose (mg/dL) 202 H 205 H 161 H (75-99) mg/dL Calcium (8.4-10.2) mg/dL Total Protein (6.3-8.2) g/dL Albumin (3.5-5.0) g/dL 06/01/20 06/01/20 06/01/20 Range/Units 01:08 02:13 03:17 RBC (4.30-5.90) m/uL Hgb (13.0-17.5) gm/dL Hct (39.0-53.0) % ABG pH (7.35-7.45) ABG HCO3 (21-25) mmol/L ABG Total CO2 (19-24) mmol/L ABG O2 Saturation (94-97) % Sodium (137-145) mmol/L Carbon Dioxide (22-30) mmol/L Glucose (74-99) mg/dL POC Glucose (mg/dL) 165 H 173 H 174 H (75-99) mg/dL Calcium (8.4-10.2) mg/dL Total Protein (6.3-8.2) g/dL Albumin (3.5-5.0) g/dL 06/01/20 06/01/20 06/01/20 Range/Units 04:09 04:09 04:14 RBC 3.28 L (4.30-5.90) m/uL Hgb 9.4 L (13.0-17.5) gm/dL Hct 29.8 L (39.0-53.0) % ABG pH (7.35-7.45) ABG HCO3 (21-25) mmol/L ABG Total CO2 (19-24) mmol/L ABG O2 Saturation (94-97) % Sodium 133 L (137-145) mmol/L Carbon Dioxide 31 H (22-30) mmol/L Glucose 135 H (74-99) mg/dL POC Glucose (mg/dL) 139 H (75-99) mg/dL Calcium 8.0 L (8.4-10.2) mg/dL Total Protein 5.3 L (6.3-8.2) g/dL Albumin 2.5 L (3.5-5.0) g/dL 06/01/20 06/01/20 06/01/20 Range/Units 05:14 06:09 06:17 RBC (4.30-5.90) m/uL Hgb (13.0-17.5) gm/dL Hct (39.0-53.0) % ABG pH 7.49 H (7.35-7.45) ABG HCO3 33 H (21-25) mmol/L ABG Total CO2 35 H (19-24) mmol/L ABG O2 Saturation 97.5 H (94-97) % Sodium (137-145) mmol/L Carbon Dioxide (22-30) mmol/L Glucose (74-99) mg/dL POC Glucose (mg/dL) 125 H 135 H (75-99) mg/dL Calcium (8.4-10.2) mg/dL Total Protein (6.3-8.2) g/dL Albumin (3.5-5.0) g/dL 06/01/20 Range/Units 07:03 RBC (4.30-5.90) m/uL Hgb (13.0-17.5) gm/dL Hct (39.0-53.0) % ABG pH (7.35-7.45) ABG HCO3 (21-25) mmol/L ABG Total CO2 (19-24) mmol/L ABG O2 Saturation (94-97) % Sodium (137-145) mmol/L Carbon Dioxide (22-30) mmol/L Glucose (74-99) mg/dL POC Glucose (mg/dL) 151 H (75-99) mg/dL Calcium (8.4-10.2) mg/dL Total Protein (6.3-8.2) g/dL Albumin (3.5-5.0) g/dL Microbiology - Last 24 Hours (Table) 05/26/20 09:53 Blood Culture - Preliminary Blood No Growth after 120 hours - Imaging and Cardiology Chest x-ray: image reviewed Assessment and Plan Assessment: 1. Unstable angina, severe calcific 3 vessel coronary artery disease, status post three-vessel CABG 2. Recent stroke in November 2019 with continued short-term memory loss and impulsivity 3. Cardiomyopathy with EF 45-50% 4. Hypertension 5. Hyperlipidemia 6. Insulin-dependent diabetes with preoperative hemoglobin A1c 8% 7. Asthma 8. Previous tobacco dependence with preoperative FEV1 75% of predicted 9. Family history of premature coronary artery disease with father diagnosed less than 60 years old. 10. Postoperative acute blood loss anemia and thrombocytopenia, expected 11. Acute hypoxic respiratory failure requiring reintubation, unexpected 12. Metabolic alkalosis, hypokalemia 13. Malnutrition, s/p PEG tube placement 14. Prolonged mechanical ventilation, s/p tracheostomy placement Plan: 1. Continue aspirin, statin, Plavix, beta sarah therapy. 2. Ventilator managment, bronchodilators per pulmonology. Wean as tolerated, may switch propofol to precedex for weaning 3. Will monitor daily labs and x-rays. Electrolyte replacement per protocol, replace potassium to keep K>4.2. Lasix 40 mg IVP x 1 today 4. GI/DVT prophylaxis 5. Pain control with current medication regimen 6. Insulin management per Dr. Tafoya 7. Continue Hearn catheter 8. Strict accurate intake and output, daily weight 9. Continue tube feedings 10. Social work/case management on consult for discharge planning, patient will need LTAC 11. More recommendations to follow based on patient's progress Time with Patient: Greater than 30
[2020-06-01] MEDS: INSULIN ASPART (NovoLOG) 100 UNIT/ML VIAL SQ SCH ×6 (08:49→20:12)
[2020-06-01] MEDS: QUEtiapine 25 MG TAB PO SCH ×2 (08:54→20:12)
[2020-06-01] MEDS: CHLORHEXIDINE GLUCONATE 15 ML CUP MUCOUS MEM SCH ×2 (08:55→20:11)
[2020-06-01] MEDS: CLOPIDOGREL 75 MG TAB PO SCH (08:55)
[2020-06-01] MEDS: ATORVASTATIN 40 MG TAB PO SCH (08:55)
[2020-06-01] MEDS: PANTOPRAZOLE 40 MG/10 ML VIAL IVP SCH (08:55)
[2020-06-01] MEDS: ASPIRIN 325 MG TAB NG-TUBE SCH (08:55)
[2020-06-01] MEDS: LEVOFLOXACIN 500 MG TAB PO SCH (08:55)
[2020-06-01] MEDS: METOPROLOL TARTRATE 12.5 MG TAB NG-TUBE SCH ×2 (08:55→20:12)
[2020-06-01] MEDS: polyethylene glycoL 3350 17 GM POWD.PACK PO SCH (08:56)
[2020-06-01] MEDS: DEXMEDETOMIDINE/0.9% NACL(PMX) 400 MCG in EMPTY BAG 1 BAG IV SCH ×2 (08:56→16:01)
--- NOTE | 2020-06-01 09:32 | PN ---
PROGRESS NOTE Mr. Perez is status post aortocoronary bypass surgery with difficult to wean, had a tracheostomy yesterday, right now is sedated, resting comfortably, sinus rhythm, making decent urine, hemodynamically stable. S1-S2 are normally, short systolic murmur noted. Lungs reveal fair air entry assisted by the ventilator through tracheostomy tube. I am recommending that we decrease metoprolol to 12.5 mg b.i.d. The patient weaning efforts are currently in progress. Dr. Chinchilla is planning to see if he can wean the patient. The last time before the tracheostomy was quite difficult. Prognosis remains guarded. MMODL / IJN: [id number] /
[2020-06-01 11:15] LABS: Glucose,Whole Blood 238 mg/dL (75-99)
--- NOTE | 2020-06-01 12:32 | CDI ---
Documentation Clarification Form Date: 06/01/2020 11:36:22 AM From: Marilu Cheatham RN, CCDS Admit Date: 05/22/2020 05:33:00 AM Patient Name: Marcos Perez Visit Number: [id number] Discharge Date: ATTENTION: The Clinical Documentation Specialists (CDI) and [facility] Coding Staff appreciate your assistance in clarifying documentation. Please respond to the clarification below the line at the bottom and electronically sign. The CDI & [facility] Coding staff will review the response and follow-up if needed. Please note: Queries are made part of the Legal Health Record. If you have any questions, please contact the author of this message via ITS. Dr. Tomas Boone 05/26 Acute hypoxic respiratory failure requiring re-intubation unexpected, is documented and in subsequent progress notes. Please render your professional opinion and indications of the respiratory failure. Patients Admitting Diagnosis: Unstable angina, severe calcific 3-vessel coronary artery disease Post-Operative Diagnosis: Same Procedure performed: Coronary artery bypass grafting x3 with left internal mammary to LAD, reverse saphenous vein graft off the aorta the first OM and posterior descending artery with left lower extremity greater saphenous vein endoscopic vein harvesting clip ligation of the left atrial appendage and intraoperative KYLIE History/Risk Factors: Chronic bronchial asthma, CVA, Coronary arteriosclerosis, Hypertension, Previous tobacco use FEV1 75 % of predicted, Ischemic Cardiomyopathy with EF 45-50 % Clinical Indicators: 74-year-old male who had CABG 3 vessels. POD # 2 He agitated and confused. He has history of short-term memory loss. 12/ Pulmonary progress notes. POD#3. He is maintaining O2 saturation in the 90s on 2/L m per nasal cannula. Chest x-ray reveals low lung volumes, cardiomegaly, and central vascular congestion left greater that right basilar infiltrate/atelectasis. Some worsening of the congestion compared to yesterday. Patient has not been appropriate from the neurologic standpoint. CT brain revealed no acute intracranial hemorrhage or midline shift, mild to moderate diffuse cerebral atrophy and chronic small vessel changes. No change compared to previous of November 2019. Lungs: Equal air entry with crackles in the bilateral posterior bases 05/25@20:30 Vital signs: 145/57 65 31 74 % 15 high flow Patient was noted by nursing staff to be violent kinking at the staff and attempting to bite. He became diaphoretic tachypneic, and appears ashen in color. 05/25@ 22:00 re-intubated Treatment: 05/25 Emergently re-intubated Ventilator management, bronchodilators per pulmonary Monitor daily labs and x-rays. Electrolyte replacement per protocol In order to accurately reflect this patients severity of illness, please clarify if Acute hypoxic respiratory failure, Unexpected: -is unexpected related to co-morbid condition(s) of (specify) -Other please specify -Unable to determine (Last Revision: July 2019) unexpected related to patient's inability to clear secretions due to weak cough leading to hypoxia, MTDD
--- NOTE | 2020-06-01 13:08 | P.PN ---
Subjective Progress Note Date: 06/01/20 CHIEF COMPLAINT: Patient is status post CABG HISTORY OF PRESENT ILLNESS: Patient remains in the ICU. He is intubated and sedated. Patient is status post PEG tube placement. Patient is tolerating bolus tube feedings. Patient is status post tracheostomy placement with Dr. Boone. Afebrile WBC 9.1 hemoglobin 9.4 PHYSICAL EXAM: VITAL SIGNS: Reviewed. GENERAL: Well-developed in no acute distress. HEENT: No sclera icterus. Extraocular movements grossly intact. Moist buccal mucosa. Head is atraumatic, normocephalic. ABDOMEN: Soft. Nondistended. Nontender. NEUROLOGIC: Intubated and sedated ASSESSMENT: 1. Coronary artery disease status post three-vessel CABG 2. Severe protein calorie malnutrition status post PEG tube placement PLAN: -Continue supportive care -Continue tube feedings Physician Nurse Practitioner Home Assessments note has been reviewed by physician. Signing provider agrees with the documented findings, assessment, and plan of care. Objective - Vital Signs Vital signs: Vital Signs Temp 100.8 F H 06/01/20 12:00 Pulse 59 L 06/01/20 13:00 Resp 16 06/01/20 13:00 BP 97/58 06/01/20 13:00 Pulse Ox 96 06/01/20 13:00 Intake & Output 05/31/20 06/01/20 06/01/20 18:59 06:59 18:59 Intake Total 9838.754 6588.911 485.383 Output Total 1460 392 280 Balance -187.969 714.911 205.383 Weight 87.6 kg 86.9 kg Intake: IV 920 220 100 LR 920 220 100 Intake, IV Titration 114.031 142.911 117.383 Amount Dexmedetomidine/0.9% NaCl 38.237 (Pmx) 400 mcg In Empty Bag 1 bag @ Titrate IV . Q0M [facility] Rx#:[id number] Insulin Regular 100 unit 14.031 64.816 6.582 In Sodium Chloride 0.9% 100 ml @ Per Protocol IV .Q0M [facility] Rx#:[id number] propofoL 1,000 mg In 100 78.095 72.564 Empty Bag 1 bag @ Titrate IV .Q0M [facility] Rx#: [id number] Tube Feeding 208 624 208 Other 30 120 60 Output: Urine 1455 392 280 Estimated Blood Loss 5 Other: Voiding Method Indwelling Catheter Indwelling Catheter Indwelling Catheter # Bowel Movements 0 1 ABP, PAP, CO, CI - Last Documented Arterial Blood Pressure 103/42 Pulmonary Artery Pressure 32/15 Cardiac Output 4.4 Cardiac Index 2.2 - Labs CBC & Chem 7: 06/01/20 04:09 06/01/20 04:09 Labs: Abnormal Lab Results - Last 24 Hours (Table) 05/31/20 05/31/20 05/31/20 Range/Units 13:42 15:31 17:09 RBC (4.30-5.90) m/uL Hgb (13.0-17.5) gm/dL Hct (39.0-53.0) % ABG pH (7.35-7.45) ABG HCO3 (21-25) mmol/L ABG Total CO2 (19-24) mmol/L ABG O2 Saturation (94-97) % Sodium (137-145) mmol/L Carbon Dioxide (22-30) mmol/L Glucose (74-99) mg/dL POC Glucose (mg/dL) 101 H 110 H 108 H (75-99) mg/dL Calcium (8.4-10.2) mg/dL Total Protein (6.3-8.2) g/dL Albumin (3.5-5.0) g/dL 05/31/20 05/31/20 05/31/20 Range/Units 18:53 20:46 22:03 RBC (4.30-5.90) m/uL Hgb (13.0-17.5) gm/dL Hct (39.0-53.0) % ABG pH (7.35-7.45) ABG HCO3 (21-25) mmol/L ABG Total CO2 (19-24) mmol/L ABG O2 Saturation (94-97) % Sodium (137-145) mmol/L Carbon Dioxide (22-30) mmol/L Glucose (74-99) mg/dL POC Glucose (mg/dL) 102 H 176 H 202 H (75-99) mg/dL Calcium (8.4-10.2) mg/dL Total Protein (6.3-8.2) g/dL Albumin (3.5-5.0) g/dL 05/31/20 06/01/20 06/01/20 Range/Units 23:01 00:08 01:08 RBC (4.30-5.90) m/uL Hgb (13.0-17.5) gm/dL Hct (39.0-53.0) % ABG pH (7.35-7.45) ABG HCO3 (21-25) mmol/L ABG Total CO2 (19-24) mmol/L ABG O2 Saturation (94-97) % Sodium (137-145) mmol/L Carbon Dioxide (22-30) mmol/L Glucose (74-99) mg/dL POC Glucose (mg/dL) 205 H 161 H 165 H (75-99) mg/dL Calcium (8.4-10.2) mg/dL Total Protein (6.3-8.2) g/dL Albumin (3.5-5.0) g/dL 06/01/20 06/01/20 06/01/20 Range/Units 02:13 03:17 04:09 RBC (4.30-5.90) m/uL Hgb (13.0-17.5) gm/dL Hct (39.0-53.0) % ABG pH (7.35-7.45) ABG HCO3 (21-25) mmol/L ABG Total CO2 (19-24) mmol/L ABG O2 Saturation (94-97) % Sodium 133 L (137-145) mmol/L Carbon Dioxide 31 H (22-30) mmol/L Glucose 135 H (74-99) mg/dL POC Glucose (mg/dL) 173 H 174 H (75-99) mg/dL Calcium 8.0 L (8.4-10.2) mg/dL Total Protein 5.3 L (6.3-8.2) g/dL Albumin 2.5 L (3.5-5.0) g/dL 06/01/20 06/01/20 06/01/20 Range/Units 04:09 04:14 05:14 RBC 3.28 L (4.30-5.90) m/uL Hgb 9.4 L (13.0-17.5) gm/dL Hct 29.8 L (39.0-53.0) % ABG pH (7.35-7.45) ABG HCO3 (21-25) mmol/L ABG Total CO2 (19-24) mmol/L ABG O2 Saturation (94-97) % Sodium (137-145) mmol/L Carbon Dioxide (22-30) mmol/L Glucose (74-99) mg/dL POC Glucose (mg/dL) 139 H 125 H (75-99) mg/dL Calcium (8.4-10.2) mg/dL Total Protein (6.3-8.2) g/dL Albumin (3.5-5.0) g/dL 06/01/20 06/01/20 06/01/20 Range/Units 06:09 06:17 07:03 RBC (4.30-5.90) m/uL Hgb (13.0-17.5) gm/dL Hct (39.0-53.0) % ABG pH 7.49 H (7.35-7.45) ABG HCO3 33 H (21-25) mmol/L ABG Total CO2 35 H (19-24) mmol/L ABG O2 Saturation 97.5 H (94-97) % Sodium (137-145) mmol/L Carbon Dioxide (22-30) mmol/L Glucose (74-99) mg/dL POC Glucose (mg/dL) 135 H 151 H (75-99) mg/dL Calcium (8.4-10.2) mg/dL Total Protein (6.3-8.2) g/dL Albumin (3.5-5.0) g/dL 06/01/20 Range/Units 11:14 RBC (4.30-5.90) m/uL Hgb (13.0-17.5) gm/dL Hct (39.0-53.0) % ABG pH (7.35-7.45) ABG HCO3 (21-25) mmol/L ABG Total CO2 (19-24) mmol/L ABG O2 Saturation (94-97) % Sodium (137-145) mmol/L Carbon Dioxide (22-30) mmol/L Glucose (74-99) mg/dL POC Glucose (mg/dL) 238 H (75-99) mg/dL Calcium (8.4-10.2) mg/dL Total Protein (6.3-8.2) g/dL Albumin (3.5-5.0) g/dL Microbiology - Last 24 Hours (Table) 05/26/20 09:53 Blood Culture - Final Blood No Growth after 144 hours
[2020-06-01 16:22] LABS: Glucose,Whole Blood 247 mg/dL (75-99)
[2020-06-01 20:06] LABS: Glucose,Whole Blood 249 mg/dL (75-99)
[2020-06-01] MEDS: SENNOSIDES-DOCUSATE SODIUM 1 EACH TAB PO SCH (20:12)
[2020-06-01] MEDS: LACTATED RINGERS 1,000 ML IV SCH (20:13)
--- NOTE | 2020-06-01 20:15 | P.PN ---
Subjective On-call hospitalist covering Dr. Tafoya will resume the care of the patient on 06/05 This is a pleasant 74 years old male with history of unstable angina and found to have severe three-vessel coronary artery disease, he underwent coronary artery bypass grafting on 05/22. Postoperatively he was extubated within 1-2 days and placed on 2 L/m oxygen via nasal cannula, patient was noted to be forgetful and difficult to be educated about his care. However on 05/26 became more agitated and hypoxic and he had to be reintubated again by Dr. Perdomo. looks like patient has difficulty to be weaned off the ventilating machine. CT of the brain showed no acute intracranial abnormality but there is mild to moderate diffuse cerebral atrophy. Eventually surgery team were consulted for PEG tube placement and tracheostomy which the patient has both of them now. Also patient has been followed by several consultants including surgery team, cardiology as well as pulmonary/critical care team, who remains on mechanical ventilation. He is hemodynamically stable and does not need any pressors.Chest x-ray showed low lung volume with cardiomegaly, with mild central vascular congestion is suspected and left greater than right bibasilar acute i nfiltrate and/or atelectasis. No significant change from prior chest x-ray Labs reviewed and looks stable. Sugar controlled or slightly elevated Objective - Vital Signs Vital signs: Vital Signs Temp 100.8 F H 06/01/20 12:00 Pulse 67 06/01/20 15:17 Resp 16 06/01/20 14:00 BP 87/55 06/01/20 14:00 Pulse Ox 97 06/01/20 14:00 Intake & Output 05/31/20 06/01/20 06/01/20 18:59 06:59 18:59 Intake Total 5838.223 5255.911 804.241 Output Total 1460 392 475 Balance -187.969 714.911 329.241 Weight 87.6 kg 86.9 kg Intake: IV 920 220 160 LR 920 220 160 Intake, IV Titration 114.031 142.911 138.241 Amount Dexmedetomidine/0.9% NaCl 59.095 (Pmx) 400 mcg In Empty Bag 1 bag @ Titrate IV . Q0M [facility] Rx#:[id number] Insulin Regular 100 unit 14.031 64.816 6.582 In Sodium Chloride 0.9% 100 ml @ Per Protocol IV .Q0M [facility] Rx#:[id number] propofoL 1,000 mg In 100 78.095 72.564 Empty Bag 1 bag @ Titrate IV .Q0M [facility] Rx#: [id number] Tube Feeding 208 624 416 Other 30 120 90 Output: Urine 1455 392 475 Estimated Blood Loss 5 Other: Voiding Method Indwelling Catheter Indwelling Catheter Indwelling Catheter # Bowel Movements 0 1 ABP, PAP, CO, CI - Last Documented Arterial Blood Pressure 103/42 Pulmonary Artery Pressure 32/15 Cardiac Output 4.4 Cardiac Index 2.2 - Exam -GENERAL: The patient is sedated and on mechanical ventilation, status post tracheostomy HEENT: Pupils are round and equally reacting to light. EOMI. No scleral icterus. No conjunctival pallor. Normocephalic, atraumatic. No pharyngeal erythema. No thyromegaly. CARDIOVASCULAR: S1 and S2 present. No murmurs, rubs, or gallops. PULMONARY: Chest is clear to auscultation, no wheezing or crackles. -ABDOMEN: Soft, nontender, nondistended, normoactive bowel sounds. No palpable organomegaly. PEG tube is in place MUSCULOSKELETAL: No joint swelling or deformity. EXTREMITIES: No cyanosis, clubbing, or pedal edema. NEUROLOGICAL: Gross neurological examination did not reveal any focal deficits. SKIN: No rashes. no petechiae. - Labs CBC & Chem 7: 06/01/20 04:09 06/01/20 04:09 Labs: Abnormal Lab Results - Last 24 Hours (Table) 05/31/20 05/31/20 05/31/20 Range/Units 18:53 20:46 22:03 RBC (4.30-5.90) m/uL Hgb (13.0-17.5) gm/dL Hct (39.0-53.0) % ABG pH (7.35-7.45) ABG HCO3 (21-25) mmol/L ABG Total CO2 (19-24) mmol/L ABG O2 Saturation (94-97) % Sodium (137-145) mmol/L Carbon Dioxide (22-30) mmol/L Glucose (74-99) mg/dL POC Glucose (mg/dL) 102 H 176 H 202 H (75-99) mg/dL Calcium (8.4-10.2) mg/dL Total Protein (6.3-8.2) g/dL Albumin (3.5-5.0) g/dL 05/31/20 06/01/20 06/01/20 Range/Units 23:01 00:08 01:08 RBC (4.30-5.90) m/uL Hgb (13.0-17.5) gm/dL Hct (39.0-53.0) % ABG pH (7.35-7.45) ABG HCO3 (21-25) mmol/L ABG Total CO2 (19-24) mmol/L ABG O2 Saturation (94-97) % Sodium (137-145) mmol/L Carbon Dioxide (22-30) mmol/L Glucose (74-99) mg/dL POC Glucose (mg/dL) 205 H 161 H 165 H (75-99) mg/dL Calcium (8.4-10.2) mg/dL Total Protein (6.3-8.2) g/dL Albumin (3.5-5.0) g/dL 06/01/20 06/01/20 06/01/20 Range/Units 02:13 03:17 04:09 RBC (4.30-5.90) m/uL Hgb (13.0-17.5) gm/dL Hct (39.0-53.0) % ABG pH (7.35-7.45) ABG HCO3 (21-25) mmol/L ABG Total CO2 (19-24) mmol/L ABG O2 Saturation (94-97) % Sodium 133 L (137-145) mmol/L Carbon Dioxide 31 H (22-30) mmol/L Glucose 135 H (74-99) mg/dL POC Glucose (mg/dL) 173 H 174 H (75-99) mg/dL Calcium 8.0 L (8.4-10.2) mg/dL Total Protein 5.3 L (6.3-8.2) g/dL Albumin 2.5 L (3.5-5.0) g/dL 06/01/20 06/01/20 06/01/20 Range/Units 04:09 04:14 05:14 RBC 3.28 L (4.30-5.90) m/uL Hgb 9.4 L (13.0-17.5) gm/dL Hct 29.8 L (39.0-53.0) % ABG pH (7.35-7.45) ABG HCO3 (21-25) mmol/L ABG Total CO2 (19-24) mmol/L ABG O2 Saturation (94-97) % Sodium (137-145) mmol/L Carbon Dioxide (22-30) mmol/L Glucose (74-99) mg/dL POC Glucose (mg/dL) 139 H 125 H (75-99) mg/dL Calcium (8.4-10.2) mg/dL Total Protein (6.3-8.2) g/dL Albumin (3.5-5.0) g/dL 06/01/20 06/01/20 06/01/20 Range/Units 06:09 06:17 07:03 RBC (4.30-5.90) m/uL Hgb (13.0-17.5) gm/dL Hct (39.0-53.0) % ABG pH 7.49 H (7.35-7.45) ABG HCO3 33 H (21-25) mmol/L ABG Total CO2 35 H (19-24) mmol/L ABG O2 Saturation 97.5 H (94-97) % Sodium (137-145) mmol/L Carbon Dioxide (22-30) mmol/L Glucose (74-99) mg/dL POC Glucose (mg/dL) 135 H 151 H (75-99) mg/dL Calcium (8.4-10.2) mg/dL Total Protein (6.3-8.2) g/dL Albumin (3.5-5.0) g/dL 06/01/20 06/01/20 Range/Units 11:14 16:18 RBC (4.30-5.90) m/uL Hgb (13.0-17.5) gm/dL Hct (39.0-53.0) % ABG pH (7.35-7.45) ABG HCO3 (21-25) mmol/L ABG Total CO2 (19-24) mmol/L ABG O2 Saturation (94-97) % Sodium (137-145) mmol/L Carbon Dioxide (22-30) mmol/L Glucose (74-99) mg/dL POC Glucose (mg/dL) 238 H 247 H (75-99) mg/dL Calcium (8.4-10.2) mg/dL Total Protein (6.3-8.2) g/dL Albumin (3.5-5.0) g/dL Microbiology - Last 24 Hours (Table) 05/26/20 09:53 Blood Culture - Final Blood No Growth after 144 hours Assessment and Plan Assessment: Triple-vessel coronary artery disease status post bypass surgery on 05/22 Acute hypoxic respiratory failure on mechanical ventilation. Status post tracheostomy and PEG tube replacement Agitation with altered mental status, currently sedated. Difficult coming off sedation Possible elements of pulmonary infiltrate or pneumonia. History of CVA Ischemic cardiomyopathy with ejection fraction 45-50% Plan: This is a 74 years old male who presents with H and respiratory failure with difficulty, no ventilation. Patient is followed by many consultants including pulmonary/critical care team, solar energy systems engineer, surgery and the primary cardiothoracic team. Continue with aspirin, Plavix and Levaquin. Labs and medication were reviewed.. Continue same treatment. Continue with symptomatic treatment. Resume home medication. Monitor lytes and vitals. DVT and GI prophylaxis. Further recommendations as per clinical course of the patient DVT prophylaxis: Subcutaneous heparin GI Prophylaxis: Ppi Prognosis is guarded
[2020-06-02 00:04] LABS: Glucose,Whole Blood 258 mg/dL (75-99)
[2020-06-02] MEDS: IPRATROPIUM-ALBUTEROL 3 ML NEB INHALATION SCH ×7 (00:07→23:19)
[2020-06-02] MEDS: INSULIN ASPART (NovoLOG) 100 UNIT/ML VIAL SQ SCH ×4 (00:17→05:16)
[2020-06-02 05:07] LABS: Glucose,Whole Blood 237 mg/dL (75-99)
[2020-06-02] MEDS: HEPARIN SODIUM,PORCINE 5,000 UNIT/ML 1 ML VIAL SQ SCH ×3 (05:15→19:55)
[2020-06-02 05:40] LABS: Basophils # (A) 0.1 k/uL (0-0.2); Basophils % (A) 1 %; Eosinophils # (A) 0.2 k/uL (0-0.7); Eosinophils % (A) 3 %; HCT 26.8 % (39.0-53.0); HGB 8.6 gm/dL (13.0-17.5); Hypochromasia Slight; Lymphocytes # (A) 0.9 k/uL (1.0-4.8); Lymphocytes % (A) 11 %; MCH 29.1 pg (25.0-35.0); MCV 90.9 fL (80.0-100.0); Mean Platelet Volume 8.2; Monocytes # (A) 0.5 k/uL (0-1.0); Monocytes % (A) 6 %; Neutrophils # (A) 6.8 k/uL (1.3-7.7); Neutrophils % (A) 78 %; Platelet Count 374 k/uL (150-450); RBC 2.95 m/uL (4.30-5.90); RDW 13.5 % (11.5-15.5); WBC 8.6 k/uL (3.8-10.6)
[2020-06-02 05:50] LABS: ALT 20 U/L (4-49); AST 26 U/L (17-59); African American GFR (CKD) >90 (>60 ml/min/1.73 sqM); Albumin 2.5 g/dL (3.5-5.0); Alkaline Phosphatase 65 U/L (38-126); Anion Gap 4 mmol/L; Blood Urea Nitrogen 24 mg/dL (9-20); Calcium 8.2 mg/dL (8.4-10.2); Carbon Dioxide 34 mmol/L (22-30); Chloride 96 mmol/L (98-107); Glucose 224 mg/dL (74-99); Non-African American GFR(CKD) >90 (>60 ml/min/1.73 sqM); Potassium 4.9 mmol/L (3.5-5.1); Sodium 134 mmol/L (137-145); Total Bilirubin 0.6 mg/dL (0.2-1.3); Total Protein 5.3 g/dL (6.3-8.2)
[2020-06-02 06:03] LABS: ABG Base Excess 9.5 mmol/L; ABG HCO3 33 mmol/L (21-25); ABG Oxygen Saturation 98.7 % (94-97); ABG PCO2 43 mmHg (35-45); ABG PH 7.49 (7.35-7.45); ABG PO2 87 mmHg (83-108); ABG TCO2 34 mmol/L (19-24); Allen Test Performed? Yes
--- NOTE | 2020-06-02 07:02 | P.PN ---
Subjective Progress Note Date: 06/02/20 74-year-old male patient with post four-vessel bypass surgery. The patient is postop day #7 the patient underwent DOOLEY to LAD and saphenous vein graft to obtuse marginal and PDA. The patient has cardiomyopathy with ejection fraction of 45%. The patient has insulin-dependent diabetes mellitus and the patient has a previous history of CVA including with a short-term memory loss and impulsivity. Postextubation and currently the patient remains on a mechanical ventilator. His cardiac rhythm is sinus. He is hemodynamically stable. The patient remains on assist control mode of ventilation at the rate of 16 with a tidal volume of 450 and FiO2 of 25% and a PEEP of 5. He is post exhibition insertion and the patient will be started on feeding for nutritional support. Sedation is with propofol at a rate of 30mcg per KG per minute and insulin drip is running 4U units an hour for blood sugar control. Chest x-ray showing some retrocardiac infiltration and left basilar airspace disease. The patient is currently on Levaquin as an empiric antibiotic coverage. The patient is on DuoNeb nebulized treatments around the clock, aspirin and Plavix and the patient is also on metoprolol 25 mg by mouth twice a day. The sputum culture has shown no growth. Urine cultures no growth. A CAT scan of the brain that showed no evidence of any acute intracranial hemorrhage or midline shift. This is uncha nged compared to previous CT if the brain of November 2019. The blood gases from today showed a pH of 7.5 with a pCO2 of 40 and pO2 of 79. Peak airway pressures nonelevated at 22. X-ray showing cardiomegaly. If she was in a good location. The patient has pulmonary vessel congestion. There is also bowel loops on the right hemidiaphragm. There is also volume loss and the patient is smaller lung volumes. The patient was given a dose of Lasix 40 mg of push yesterday. His net fluid balance for yesterday is negative 255 mL. urine output is in order of 30-60 mL an hour. Patient is also on Seroquel 50 mg by mouth twice a day. He is on Levemir insulin was introduced for blood sugar control. on 05/30/2020, the patient remains sedated with propofol. He failed a sedation holiday yesterday and the same will be done today. He is currently off of a 4- 30 g per KG per minute and this is being gradually weaned off. I was told that his mental status was not appropriate even preoperatively and discomfort worse postop. In any rate, we are going to give the patient later sedation holiday. The patient is an assist-control mode at the rate of 16 with tidal volume of 450 FiO2 of 25% with a PEEP of 5. Chest x-ray showing pulmonary vascular congestion, small bilateral pleural effusions and cardiomegaly. ET tube is in a good location. No significant orotracheal secretions. Sternal wound is not draining at this point in time and it's dry and clean. His cardiac rhythm is sinus. He is on no pressors. He is receiving enteral feeding for nutritional support. They the patient is on Levemir at 25 units and the patient is also receiving psychiatric coverage. Blood sugars has been in the low 200s. Urine output is adequate for now. No fever. No other active issues for now. He remains on Levaquin. He was given a dose of Lasix yesterday 40 mg IV push and he is in a 0 fluid balance over the past 24 hours. Active site is clean and intact. No abdominal distention. He is postop day #8. He has also an umbilical hernia which is easily reducible.the blood gas from today showed a pH of 7.5 with a pCO2 of 41 and a pO2 of 90 and this was done and FiO2 of 25%. Airway pressures are not elevated. on 05/31/2020, the patient remains intubated. He had a failed extubation yeste rday. Postextubation, he became quite restless and agitated and he had also questioning the stridorous breathing as the patient was having inspiratory and expiratory harsh noise coming from his neck area. Obviously within 10 minutes, decompensated, became hypoxic and hypotensive. I had to be intubated and immediately on an emergency basis. He currently is intubated with a #8 orotracheal tube. He is on a mechanical ventilator. He is an FiO2 of 40% with a PEEP of 5 and tidal volume 450 with a rate of 16. Chest x-ray showing small bilateral pleural effusions. ET tube is in a good location. He is receiving daily Lasix doses. He is pH was at 7.5757 with a pCO2 of 35 and pO2 138. His serum bicarb is at 33. As such she has a combination of respiratory and metabolic alkalosis. He is hemodynamically stable. He is in a normal sinus rhythm. He is not requiring any pressors. Obviously mentation is an ongoing issue with this patient. The plan for now is to proceed with a tracheostomy tube insertion. He already had his PEG tube and an acute visit currently on hold. Otherwise no other significant events overnight. He is producing adequate amount of urine output. Sternal stable clean and intact. nnow on 06/01/2020 commands seeing the patient for a follow-up. The patient is post tracheostomy tube insertion. This morning is calm and comfortable on propofol which is running at 30 mics.this will hopefully gradually weaned off today. Meanwhile, the patient is hemodynamically stable. This morning he is an assist-control mode of ventilation. He is an FiO2 of 40% with tidal volume of 450 and a PEEP of 5 with a respiratory rate of 16. Chest x-ray shows typical postsurgical changes in the tracheostomy is in good location. No acute pulmonary infiltrates.the patient's blood gas showed a pH of 7.49 with a pCO2 of 44 and pO2 of 92. Hemoglobin stable at 9.4. The patient is afebrile. Sternal wound is dry clean and intact. He is receiving bolus feeding. Insulin drip was discontinued as the patient's blood sugar has been under much better control and tighter control for now.no other significant events otherwise. The patient is producing adequate amount of urine output. His net fluid balance over the past 24 hours has been +342 mL. On today's evaluation of 06/02/2020, the patient is on Precedex running at 0.4 mcg/kg/h. The patient is arousable. He is following some simple commands. He is also on Seroquel 75 mg by mouth twice a day. No agitation. No restlessness. Hemodynamically stable. He is on no pressors. He is receiving intermittent enteral feeding for nutritional support. Sternum is stable clean and intact. No drainage from the sternal wound. Active site is also clearing. He remains on a mechanical ventilator. Earlier this morning he was undergoing and psychosis control mode at a tidal volume of 400 with a rate of 16 and FiO2 of 40% with a PEEP of 5. Chest x-ray shows atelectatic changes small effusion the lung bases bilaterally. Tracheostomy tube is in a good location the patient has a #8 Shiley. The blood gas showed a pH of 7.49 with a pCO2 of 43 and pO2 of 87. I checked the patient's weaning parameters. The patient is still generating a lower tidal volumes and this is partly from the fact that the patient is still sedated. Blood sugar is still elevated and the patient will need an insulin drip for blood sugar control. Objective - Vital Signs Vital signs: Vital Signs Temp 99.4 F 06/02/20 05:00 Pulse 64 06/02/20 06:00 Resp 20 06/02/20 06:00 BP 112/64 06/02/20 06:00 Pulse Ox 98 06/02/20 06:00 Intake & Output 06/01/20 06/01/20 06/02/20 06:59 18:59 06:59 Intake Total 2773.666 3418.241 989.963 Output Total 392 675 409 Balance 714.911 447.241 580.963 Weight 86.9 kg 97.4 kg Intake: IV 220 240 220 LR 220 240 220 Intake, IV Titration 142.911 138.241 25.963 Amount Dexmedetomidine/0.9% NaCl 59.095 25.963 (Pmx) 400 mcg In Empty Bag 1 bag @ Titrate IV . Q0M [facility] Rx#:[id number] Insulin Regular 100 unit 64.816 6.582 In Sodium Chloride 0.9% 100 ml @ Per Protocol IV .Q0M [facility] Rx#:[id number] propofoL 1,000 mg In 78.095 72.564 Empty Bag 1 bag @ Titrate IV .Q0M [facility] Rx#: [id number] Tube Feeding 624 624 624 Other 120 120 120 Output: Urine 392 675 409 Other: Voiding Method Indwelling Catheter Indwelling Catheter Indwelling Catheter # Bowel Movements 1 ABP, PAP, CO, CI - Last Documented Arterial Blood Pressure 103/42 Pulmonary Artery Pressure 32/15 Cardiac Output 4.4 Cardiac Index 2.2 - Exam GENERAL EXAM: the patient has a tracheostomy tube in place.asynchronous with a mechanical ventilator. Is calm and comfortable.. Propofol is running at 25 g per KG per minute. HEAD: Normocephalic. EYES: Sluggish reaction of pupils, equal size. NOSE: Oral endotracheal and gastric tube secured in place. Clear with pink turbinates. THROAT: No erythema or exudates., post insertion of a tracheostomy tube, #8 Erik. NECK: No masses, no JVD. CHEST: Sternal dressing dry and intact. Serous drainage noted from incision. No chest wall deformity.no active drainage from the chest wall wound. No surrounding cellulitis at this point in time. LUNGS: Equal air entry with crackles in the bilateral posterior bases.. CVS: S1 and S2 normal with no audible murmur, regular rhythm. ABDOMEN: No hepatosplenomegaly, normal bowel sounds, no guarding or rigidity.the patient has an umbilical hernia. The patient also has a PEG tube in place SPINE: No scoliosis or deformity SKIN: No rashes CENTRAL NERVOUS SYSTEM: Tone is normal in all 4 extremities. EXTREMITIES: There is no peripheral edema. No clubbing, no cyanosis. Peripheral pulses are intact. - Labs CBC & Chem 7: 06/02/20 05:13 06/02/20 05:13 Labs: Abnormal Lab Results - Last 24 Hours (Table) 06/01/20 06/01/20 06/01/20 Range/Units 07:03 11:14 16:18 RBC (4.30-5.90) m/uL Hgb (13.0-17.5) gm/dL Hct (39.0-53.0) % Lymphocytes # (1.0-4.8) k/uL ABG pH (7.35-7.45) ABG HCO3 (21-25) mmol/L ABG Total CO2 (19-24) mmol/L ABG O2 Saturation (94-97) % Sodium (137-145) mmol/L Chloride (98-107) mmol/L Carbon Dioxide (22-30) mmol/L BUN (9-20) mg/dL Glucose (74-99) mg/dL POC Glucose (mg/dL) 151 H 238 H 247 H (75-99) mg/dL Calcium (8.4-10.2) mg/dL Total Protein (6.3-8.2) g/dL Albumin (3.5-5.0) g/dL 06/01/20 06/02/20 06/02/20 Range/Units 20:04 00:02 05:05 RBC (4.30-5.90) m/uL Hgb (13.0-17.5) gm/dL Hct (39.0-53.0) % Lymphocytes # (1.0-4.8) k/uL ABG pH (7.35-7.45) ABG HCO3 (21-25) mmol/L ABG Total CO2 (19-24) mmol/L ABG O2 Saturation (94-97) % Sodium (137-145) mmol/L Chloride (98-107) mmol/L Carbon Dioxide (22-30) mmol/L BUN (9-20) mg/dL Glucose (74-99) mg/dL POC Glucose (mg/dL) 249 H 258 H 237 H (75-99) mg/dL Calcium (8.4-10.2) mg/dL Total Protein (6.3-8.2) g/dL Albumin (3.5-5.0) g/dL 06/02/20 06/02/20 06/02/20 Range/Units 05:13 05:13 05:58 RBC 2.95 L (4.30-5.90) m/uL Hgb 8.6 L (13.0-17.5) gm/dL Hct 26.8 L (39.0-53.0) % Lymphocytes # 0.9 L (1.0-4.8) k/uL ABG pH 7.49 H (7.35-7.45) ABG HCO3 33 H (21-25) mmol/L ABG Total CO2 34 H (19-24) mmol/L ABG O2 Saturation 98.7 H (94-97) % Sodium 134 L (137-145) mmol/L Chloride 96 L (98-107) mmol/L Carbon Dioxide 34 H (22-30) mmol/L BUN 24 H (9-20) mg/dL Glucose 224 H (74-99) mg/dL POC Glucose (mg/dL) (75-99) mg/dL Calcium 8.2 L (8.4-10.2) mg/dL Total Protein 5.3 L (6.3-8.2) g/dL Albumin 2.5 L (3.5-5.0) g/dL Microbiology - Last 24 Hours (Table) 05/26/20 09:53 Blood Culture - Final Blood No Growth after 144 hours Assessment and Plan Plan: 1 Coronary artery disease status post three-vessel coronary artery bypass grafting. Postoperative day #11. For now, the weaning has been complicated as the patient is having difficulties with altered mentation. He is becoming quite agitated and is having difficulties in coming off sedation. he was given a second trial of extubation and he failed miserably and had to be reintubated. Obviously there is a combination of factors including his excessive agitation and restlessness in addition to questionable stridor affecting his upper airway contributing to his respiratory failure. patient is popost tracheostomy tube insertion yesterday and is postop day #2.for now, the patient is sedated with Precedex. His weaning parameters is rather poor. Nevertheless this is partly because of the fact that he still sedated. I'm going to gradually wean off the sedation and reassess his weaning parameters and give the patient is point is breathing trial if the patient demonstrates adequate weaning parameters. Blood gases was noted. Chest x-ray was noted. 2 Acute hypoxemic respiratory failure requiring reintubation and placed back on the mechanical ventilator on 05/25/2020, unexpected , currently has a tracheostomy tube in place #8 Shiley. 3 Ischemic cardiomyopathy with ejection fraction 45-50% 4 Hyperlipidemia 5 Diabetes mellitus, currently off insulin for blood sugar control. 6 Chronic bronchial asthma 7 History of chronic tobacco dependence 8 Recent CVA in November 2019 with ongoing altered mental status 9 Hypertension, history of 10 insertion of a PEG tube for enteral feeding 11 questionable sternal wound infection as the patient has some drainage, the drainage is serous at this point in time. plan post tracheostomy tube insertion. Sedation to be weaned off slowly and the mental status will be monitored enteral feeding for nutritional support. restart insulin drip for blood sugar control Gentle sedation wean and check weaning parameters Continue Levaquin continue supportive care CC evaluation more than 30 minutes.
[2020-06-02] MEDS: DEXMEDETOMIDINE/0.9% NACL(PMX) 400 MCG in EMPTY BAG 1 BAG IV SCH ×2 (07:05→12:15)
[2020-06-02 07:36] LABS: Glucose,Whole Blood 247 mg/dL (75-99)
--- NOTE | 2020-06-02 07:44 | P.PN ---
Subjective Progress Note Date: 06/02/20 Principal diagnosis: Unstable angina, severe calcific 3 vessel coronary artery disease. Previous medical history of recent stroke in November 2019 with continued short-term memory loss and impulsivity, cardiomyopathy with EF 45-50%, hypertension, hyperlipidemia, insulin-dependent diabetes with preoperative hemoglobin A1c 8%, asthma, previous tobacco dependence with preoperative FEV1 75% of predicted, and family history of premature coronary artery disease with father diagnosed less than 60 years old. POD #11 coronary artery bypass grafting 3 with the left internal mammary artery to the left anterior descending artery, reverse saphenous vein graft off the aorta to the first obtuse marginal artery and the posterior descending artery with endoscopic vein harvesting of the left lower extremity greater saphenous vein, clip ligation of the left atrial appendage with a 35 mm AtriClip and intraoperative transesophageal echocardiogram. Postoperative acute blood loss anemia and thrombocytopenia, expected outcomes given hemodilution and cardiopulmonary bypass pump Acute hypoxic respiratory failure requiring re-intubation, unexpected, likely from inability to clear secretions POD #5 PEG tube placement POD #2 Tracheostomy placement The patient is laying in the ICU sedated on mechanical ventilation, stable. Remains in normal sinus rhythm, hemodynamically stable on no pressors. No new events overnight. Does open his eyes, occasionally follows commands-did stick out his tongue and wiggle his toes to command yesterday evening. Sister was updated by phone yesterday. Objective - Vital Signs Vital signs: Vital Signs Temp 99.4 F 06/02/20 05:00 Pulse 65 06/02/20 07:29 Resp 23 06/02/20 07:00 BP 110/60 06/02/20 07:00 Pulse Ox 98 06/02/20 07:00 Intake & Output 06/01/20 06/02/20 06/02/20 18:59 06:59 18:59 Intake Total 6902.209 4310.000 20.145 Output Total 675 449 35 Balance 447.241 635.000 -14.855 Weight 87.4 kg Intake: IV 240 240 20 LR 240 240 20 Intake, IV Titration 138.241 100.000 0.145 Amount Dexmedetomidine/0.9% NaCl 59.095 100.000 0.145 (Pmx) 400 mcg In Empty Bag 1 bag @ Titrate IV . Q0M [facility] Rx#:[id number] Insulin Regular 100 unit 6.582 In Sodium Chloride 0.9% 100 ml @ Per Protocol IV .Q0M [facility] Rx#:[id number] propofoL 1,000 mg In 72.564 Empty Bag 1 bag @ Titrate IV .Q0M [facility] Rx#: [id number] Tube Feeding 624 624 Other 120 120 Output: Urine 675 449 35 Other: Voiding Method Indwelling Catheter Indwelling Catheter ABP, PAP, CO, CI - Last Documented Arterial Blood Pressure 103/42 Pulmonary Artery Pressure 32/15 Cardiac Output 4.4 Cardiac Index 2.2 - Constitutional General appearance: Present: no acute distress - Respiratory Details: Lungs sounds diminished bilaterally. Respirations even, nonlabored on mechanical ventilation. Current vent settings FiO2 40%, TV 400, RR 16, PEEP 5. ABGs this AM on those settings 7.49/43/87/33/98%/9.5 on those settings. 8.0 Shiley tracheostomy present - Cardiovascular Details: S1, S2 present. Regular rate and rhythm, sinus rhythm on telemetry with heart rate in the 60-70s. Sternum stable. Palpable peripheral pulses bilaterally. Trace upper extremity edema present. Heart hugger in place, antiembolism stockings, SCDs present. - Gastrointestinal Gastrointestinal Comment(s): Abdomen soft, nontender, nondistended. Active bowel sounds present 4 quadrant s. PEG tube in place, bolus tube feedings infusing per RD. Last BM 06/01/20 per nursing - Genitourinary Genitourinary Comment(s): Hearn present draining clear yellow urine. Output 30-40 mL per hour overnight, 1084 mL in the last 24 hours - Integumentary Integumentary Comment(s): Skin is warm and dry. Anterior chest incision well approximated. Left lower extremity EVH site well approximated without redness or drainage. PEG tube incision without redness. Trach incision with small amount blood tinged drainage - Neurologic Neurologic Comment(s): sedated on mechanical ventilation, does open eyes and moves extremities, occasionally to command - Musculoskeletal Musculoskeletal: Present: strength equal bilaterally - Allied health notes Allied health notes reviewed: nursing - Labs CBC & Chem 7: 06/02/20 05:13 06/02/20 05:13 Labs: Abnormal Lab Results - Last 24 Hours (Table) 06/01/20 06/01/20 06/01/20 Range/Units 11:14 16:18 20:04 RBC (4.30-5.90) m/uL Hgb (13.0-17.5) gm/dL Hct (39.0-53.0) % Lymphocytes # (1.0-4.8) k/uL ABG pH (7.35-7.45) ABG HCO3 (21-25) mmol/L ABG Total CO2 (19-24) mmol/L ABG O2 Saturation (94-97) % Sodium (137-145) mmol/L Chloride (98-107) mmol/L Carbon Dioxide (22-30) mmol/L BUN (9-20) mg/dL Glucose (74-99) mg/dL POC Glucose (mg/dL) 238 H 247 H 249 H (75-99) mg/dL Calcium (8.4-10.2) mg/dL Total Protein (6.3-8.2) g/dL Albumin (3.5-5.0) g/dL 06/02/20 06/02/20 06/02/20 Range/Units 00:02 05:05 05:13 RBC 2.95 L (4.30-5.90) m/uL Hgb 8.6 L (13.0-17.5) gm/dL Hct 26.8 L (39.0-53.0) % Lymphocytes # 0.9 L (1.0-4.8) k/uL ABG pH (7.35-7.45) ABG HCO3 (21-25) mmol/L ABG Total CO2 (19-24) mmol/L ABG O2 Saturation (94-97) % Sodium (137-145) mmol/L Chloride (98-107) mmol/L Carbon Dioxide (22-30) mmol/L BUN (9-20) mg/dL Glucose (74-99) mg/dL POC Glucose (mg/dL) 258 H 237 H (75-99) mg/dL Calcium (8.4-10.2) mg/dL Total Protein (6.3-8.2) g/dL Albumin (3.5-5.0) g/dL 06/02/20 06/02/20 Range/Units 05:13 05:58 RBC (4.30-5.90) m/uL Hgb (13.0-17.5) gm/dL Hct (39.0-53.0) % Lymphocytes # (1.0-4.8) k/uL ABG pH 7.49 H (7.35-7.45) ABG HCO3 33 H (21-25) mmol/L ABG Total CO2 34 H (19-24) mmol/L ABG O2 Saturation 98.7 H (94-97) % Sodium 134 L (137-145) mmol/L Chloride 96 L (98-107) mmol/L Carbon Dioxide 34 H (22-30) mmol/L BUN 24 H (9-20) mg/dL Glucose 224 H (74-99) mg/dL POC Glucose (mg/dL) (75-99) mg/dL Calcium 8.2 L (8.4-10.2) mg/dL Total Protein 5.3 L (6.3-8.2) g/dL Albumin 2.5 L (3.5-5.0) g/dL Microbiology - Last 24 Hours (Table) 05/26/20 09:53 Blood Culture - Final Blood No Growth after 144 hours - Imaging and Cardiology Chest x-ray: image reviewed Assessment and Plan Assessment: 1. Unstable angina, severe calcific 3 vessel coronary artery disease, status post three-vessel CABG 2. Recent stroke in November 2019 with continued short-term memory loss and impulsivity 3. Cardiomyopathy with EF 45-50% 4. Hypertension 5. Hyperlipidemia 6. Insulin-dependent diabetes with preoperative hemoglobin A1c 8% 7. Asthma 8. Previous tobacco dependence with preoperative FEV1 75% of predicted 9. Family history of premature coronary artery disease with father diagnosed less than 60 years old. 10. Postoperative acute blood loss anemia and thrombocytopenia, expected 11. Acute hypoxic respiratory failure requiring reintubation, unexpected 12. Metabolic alkalosis, hypokalemia 13. Malnutrition, s/p PEG tube placement 14. Prolonged mechanical ventilation, s/p tracheostomy placement Plan: 1. Continue aspirin, statin, Plavix, beta sarah therapy. 2. Ventilator managment, bronchodilators per pulmonology. Wean as tolerated 3. Will monitor daily labs and x-rays. Electrolyte replacement per protocol, replace potassium to keep K>4.2. 4. GI/DVT prophylaxis 5. Pain control with current medication regimen 6. Insulin management per Dr. Tafoya 7. Continue Hearn catheter 8. Strict accurate intake and output, daily weight 9. Continue tube feedings 10. Social work/case management on consult for discharge planning, patient will need LTAC 11. More recommendations to follow based on patient's progress Time with Patient: Greater than 30
[2020-06-02] MEDS: INSULIN REGULAR 100 UNIT in SODIUM CHLORIDE 0.9% 100 ML IV SCH ×3 (08:12→19:43)
--- NOTE | 2020-06-02 08:26 | XR ---
EXAMINATION TYPE: XR chest 1V portable DATE OF EXAM: 06/02/2020 Comparison: 06/01/2020 Clinical History: 74-year-old male post cardiac surgery Findings: Tracheostomy cannula. Median sternotomy wires and post-CABG clips in the mediastinum. Rightward patie nt rotation also a normal cardiac and mediastinal contours. Heart mildly enlarged. Diffuse interstiti al and vascular prominence similar to slightly increased. There are small pleural effusions with biba silar opacities better seen now. Impression: Pulmonary vascular congestion similar to minimally worsened. Continued small pleural effusions with b ibasilar atelectasis and/or consolidation.
[2020-06-02] MEDS: LEVOFLOXACIN 500 MG TAB PO SCH (08:56)
[2020-06-02] MEDS: QUEtiapine 25 MG TAB PO SCH (08:56)
[2020-06-02] MEDS: METOPROLOL TARTRATE 12.5 MG TAB NG-TUBE SCH ×2 (08:56→19:55)
[2020-06-02] MEDS: CLOPIDOGREL 75 MG TAB PO SCH (08:56)
[2020-06-02] MEDS: ASPIRIN 325 MG TAB NG-TUBE SCH (08:56)
[2020-06-02] MEDS: ATORVASTATIN 40 MG TAB PO SCH (08:56)
[2020-06-02] MEDS: polyethylene glycoL 3350 17 GM POWD.PACK PO SCH (08:57)
[2020-06-02] MEDS: CHLORHEXIDINE GLUCONATE 15 ML CUP MUCOUS MEM SCH ×2 (08:57→19:56)
[2020-06-02] MEDS: PANTOPRAZOLE 40 MG/10 ML VIAL IVP SCH (08:57)
[2020-06-02 09:11] LABS: Glucose,Whole Blood 183 mg/dL (75-99)
--- NOTE | 2020-06-02 09:45 | PN ---
PROGRESS NOTE Marcos Perez is a gentleman who is status post bypass surgery, who has been neurologically somewhat slow and disoriented. Patient has had a lot of issues,weaning efforts were unsuccessful. He has a tracheostomy, hemodynamically stable making decent urine, not on any pressors, maintaining sinus rhythm. However, his neurological condition seems to have deteriorated in the sense that he does not seem to focus to questions very well. I really think he would benefit from a neurology evaluation. He may end up being sent to long-term ventilator care facility. He is not. He does respond to questions, but does not seem to have a meaningful response. He is maintaining a sinus rhythm. Blood pressure is 118/70, pulse rate 64 per minute, JVD 1 cm, S1-S2 heard normally short systolic murmur. Lungs reveal ventilated assisted breath sounds. The rest of physical exam unchanged. RECOMMENDATIONS: I would recommend from a cardiology standpoint, no change in medications, would recommend a neurology evaluation and he may require long-term ventilator care facility. MMODL / IJN: [id number] / VIN
[2020-06-02 10:10] LABS: Glucose,Whole Blood 160 mg/dL (75-99)
[2020-06-02 11:07] LABS: Glucose,Whole Blood 147 mg/dL (75-99)
[2020-06-02 11:52] LABS: Glucose,Whole Blood 130 mg/dL (75-99)
[2020-06-02 12:58] LABS: Glucose,Whole Blood 86 mg/dL (75-99)
--- NOTE | 2020-06-02 13:00 | P.PN ---
Subjective Progress Note Date: 06/02/20 CHIEF COMPLAINT: Patient is status post CABG HISTORY OF PRESENT ILLNESS: Patient remains in the ICU. He is intubated and sedated. Patient is status post PEG tube placement. Patient is tolerating bolus tube feedings. Patient is status post tracheostomy placement with Dr. Boone. Temporal 100.5 WBC 8.6 hemoglobin 8.6 PHYSICAL EXAM: VITAL SIGNS: Reviewed. GENERAL: Well-developed in no acute distress. HEENT: No sclera icterus. Extraocular movements grossly intact. Moist buccal mucosa. Head is atraumatic, normocephalic. ABDOMEN: Soft. Nondistended. Nontender. NEUROLOGIC: Intubated and sedated ASSESSMENT: 1. Coronary artery disease status post three-vessel CABG 2. 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 Signing provider agrees with the documented findings, assessment, and plan of care. Objective - Vital Signs Vital signs: Vital Signs Temp 99.5 F 06/02/20 12:00 Pulse 70 06/02/20 12:00 Resp 28 H 06/02/20 12:00 BP 131/50 06/02/20 12:00 Pulse Ox 98 06/02/20 12:00 Intake & Output 06/01/20 06/02/20 06/02/20 18:59 06:59 18:59 Intake Total 4676.429 1968.000 170.115 Output Total 675 449 185 Balance 447.241 635.000 -14.885 Weight 87.4 kg 87.4 kg Intake: IV 240 240 130 LR 240 240 130 Intake, IV Titration 138.241 100.000 40.115 Amount Dexmedetomidine/0.9% NaCl 59.095 100.000 0.145 (Pmx) 400 mcg In Empty Bag 1 bag @ Titrate IV . Q0M LIYA Rx#:[id number] Insulin Regular 100 unit 6.582 In Sodium Chloride 0.9% 100 ml @ Per Protocol IV .Q0M LIYA Rx#:[id number] Insulin Regular 100 unit 39.970 In Sodium Chloride 0.9% 100 ml @ Per Protocol IV .Q0M LIYA Rx#:[id number] propofoL 1,000 mg In 72.564 Empty Bag 1 bag @ Titrate IV .Q0M LIYA Rx#: [id number] Tube Feeding 624 624 Other 120 120 Output: Urine 675 449 185 Other: Voiding Method Indwelling Catheter Indwelling Catheter Indwelling Catheter ABP, PAP, CO, CI - Last Documented Arterial Blood Pressure 103/42 Pulmonary Artery Pressure 32/15 Cardiac Output 4.4 Cardiac Index 2.2 - Labs CBC & Chem 7: 06/02/20 05:13 06/02/20 05:13 Labs: Abnormal Lab Results - Last 24 Hours (Table) 06/01/20 06/01/20 06/02/20 Range/Units 16:18 20:04 00:02 RBC (4.30-5.90) m/uL Hgb (13.0-17.5) gm/dL Hct (39.0-53.0) % Lymphocytes # (1.0-4.8) k/uL ABG pH (7.35-7.45) ABG HCO3 (21-25) mmol/L ABG Total CO2 (19-24) mmol/L ABG O2 Saturation (94-97) % Sodium (137-145) mmol/L Chloride (98-107) mmol/L Carbon Dioxide (22-30) mmol/L BUN (9-20) mg/dL Glucose (74-99) mg/dL POC Glucose (mg/dL) 247 H 249 H 258 H (75-99) mg/dL Calcium (8.4-10.2) mg/dL Total Protein (6.3-8.2) g/dL Albumin (3.5-5.0) g/dL 06/02/20 06/02/20 06/02/20 Range/Units 05:05 05:13 05:13 RBC 2.95 L (4.30-5.90) m/uL Hgb 8.6 L (13.0-17.5) gm/dL Hct 26.8 L (39.0-53.0) % Lymphocytes # 0.9 L (1.0-4.8) k/uL ABG pH (7.35-7.45) ABG HCO3 (21-25) mmol/L ABG Total CO2 (19-24) mmol/L ABG O2 Saturation (94-97) % Sodium 134 L (137-145) mmol/L Chloride 96 L (98-107) mmol/L Carbon Dioxide 34 H (22-30) mmol/L BUN 24 H (9-20) mg/dL Glucose 224 H (74-99) mg/dL POC Glucose (mg/dL) 237 H (75-99) mg/dL Calcium 8.2 L (8.4-10.2) mg/dL Total Protein 5.3 L (6.3-8.2) g/dL Albumin 2.5 L (3.5-5.0) g/dL 06/02/20 06/02/20 06/02/20 Range/Units 05:58 07:35 09:10 RBC (4.30-5.90) m/uL Hgb (13.0-17.5) gm/dL Hct (39.0-53.0) % Lymphocytes # (1.0-4.8) k/uL ABG pH 7.49 H (7.35-7.45) ABG HCO3 33 H (21-25) mmol/L ABG Total CO2 34 H (19-24) mmol/L ABG O2 Saturation 98.7 H (94-97) % Sodium (137-145) mmol/L Chloride (98-107) mmol/L Carbon Dioxide (22-30) mmol/L BUN (9-20) mg/dL Glucose (74-99) mg/dL POC Glucose (mg/dL) 247 H 183 H (75-99) mg/dL Calcium (8.4-10.2) mg/dL Total Protein (6.3-8.2) g/dL Albumin (3.5-5.0) g/dL 06/02/20 06/02/20 06/02/20 Range/Units 10:08 11:05 11:50 RBC (4.30-5.90) m/uL Hgb (13.0-17.5) gm/dL Hct (39.0-53.0) % Lymphocytes # (1.0-4.8) k/uL ABG pH (7.35-7.45) ABG HCO3 (21-25) mmol/L ABG Total CO2 (19-24) mmol/L ABG O2 Saturation (94-97) % Sodium (137-145) mmol/L Chloride (98-107) mmol/L Carbon Dioxide (22-30) mmol/L BUN (9-20) mg/dL Glucose (74-99) mg/dL POC Glucose (mg/dL) 160 H 147 H 130 H (75-99) mg/dL Calcium (8.4-10.2) mg/dL Total Protein (6.3-8.2) g/dL Albumin (3.5-5.0) g/dL Microbiology - Last 24 Hours (Table) 06/02/20 08:40 Sputum Culture - Preliminary Sputum 05/26/20 09:53 Blood Culture - Final Blood No Growth after 144 hours
[2020-06-02 14:42] LABS: Glucose,Whole Blood 146 mg/dL (75-99)
[2020-06-02 16:16] LABS: Glucose,Whole Blood 194 mg/dL (75-99)
[2020-06-02 17:02] LABS: Glucose,Whole Blood 202 mg/dL (75-99)
[2020-06-02 18:12] LABS: Glucose,Whole Blood 192 mg/dL (75-99)
[2020-06-02] MEDS: METOCLOPRAMIDE 5 MG/ML 2 ML VIAL IVP PRN (18:24)
[2020-06-02 18:59] LABS: Glucose,Whole Blood 184 mg/dL (75-99)
[2020-06-02] MEDS: SENNOSIDES-DOCUSATE SODIUM 1 EACH TAB PO SCH (19:55)
[2020-06-02] MEDS: LACTATED RINGERS 1,000 ML IV SCH (19:55)
[2020-06-02] MEDS: QUEtiapine 100 MG TAB PO SCH (19:59)
[2020-06-02 20:01] LABS: Glucose,Whole Blood 142 mg/dL (75-99)
[2020-06-02 21:09] LABS: Glucose,Whole Blood 124 mg/dL (75-99)
--- NOTE | 2020-06-02 21:44 | P.PN ---
Subjective On-call hospitalist covering Dr. Tafoya will resume the care of the patient on 06/05 This is a pleasant 74 years old male with history of unstable angina and found to have severe three-vessel coronary artery disease, he underwent coronary artery bypass grafting on 05/22. Postoperatively he was extubated within 1-2 days and placed on 2 L/m oxygen via nasal cannula, patient was noted to be forgetful and difficult to be educated about his care. However on 05/26 became more agitated and hypoxic and he had to be reintubated again by Dr. Perdomo. looks like patient has difficulty to be weaned off the ventilating machine. CT of the brain showed no acute intracranial abnormality but there is mild to moderate diffuse cerebral atrophy. Eventually surgery team were consulted for PEG tube placement and tracheostomy which the patient has both of them now. Also patient has been followed by several consultants including surgery team, cardiology as well as pulmonary/critical care team, who remains on mechanical ventilation. He is hemodynamically stable and does not need any pressors.Chest x-ray showed low lung volume with cardiomegaly, with mild central vascular congestion is suspected and left greater than right bibasilar acute i nfiltrate and/or atelectasis. No significant change from prior chest x-ray Labs reviewed and looks stable. Sugar controlled or slightly elevated 06/02/2020 Patient is in the ICU, intubated and sedated and he has issue with his mentation whenever he comes off sedation, currently pulmonary/critical care tumor trying to wean him and slowly from sedation while monitoring his mentation closely. No significant change in labs and vitals. In the meantime patient remained on Levaquin, insulin drip, Seroquel is added. Also is on aspirin and Plavix and subcutaneous heparin for DVT prophylaxis. Chest x-ray showing similar changes on the slightly worsening. Review of systems: N/a Active Medications Generic Name Dose Route Start Last Admin Trade Name Freq PRN Reason Stop Dose Admin Acetaminophen 650 mg 05/23/20 08:27 05/27/20 16:56 Acetaminophen Tab 325 Mg Tab PO 650 mg Q4HR PRN Administration Fever and/ or Pain Albuterol/Ipratropium 3 ml 05/22/20 13:32 Ipratropium-Albuterol 3 Ml Neb INHALATION RT-Q2H PRN Shortness Of Breath Or Wheezing Albuterol/Ipratropium 3 ml 05/26/20 12:00 06/02/20 20:29 Ipratropium-Albuterol 3 Ml Neb INHALATION 3 ml RT-Q4H LIYA Administration Aspirin 325 mg 05/31/20 13:00 06/02/20 08:56 Aspirin 325 Mg Tab NG-TUBE 325 mg DAILY LIYA Administration Atorvastatin Calcium 40 mg 05/31/20 13:00 06/02/20 08:56 Atorvastatin 40 Mg Tab PO 40 mg DAILY LIYA Administration Benzocaine/Menthol 1 each 05/22/20 13:32 Benzocaine/Menthol Lozeng 1 Each Lozenge MUCOUS MEM Q2H PRN Sore Throat Bisacodyl 10 mg 05/27/20 08:28 05/31/20 14:24 Bisacodyl 10 Mg Supp RECTAL 10 mg DAILY PRN Administration Constipation Chlorhexidine Gluconate 15 ml 05/25/20 22:30 06/02/20 19:56 Chlorhexidine Gluconate 15 Ml Cup MUCOUS MEM 15 ml BID LIYA Administration Clopidogrel Bisulfate 75 mg 05/31/20 13:00 06/02/20 08:56 Clopidogrel 75 Mg Tab PO 75 mg DAILY LIYA Administration Heparin Sodium (Porcine) 5,000 unit 05/22/20 21:00 06/02/20 19:55 Heparin Sodium,Porcine 5,000 Unit/Ml 1 Ml Vial SQ 5,000 unit Q8H LIYA Administration Lactated Ringer's 1,000 mls @ 20 mls/hr 05/23/20 14:35 06/02/20 19:55 Lactated Ringers IV 20 mls/hr .Q24H LIYA Administration Insulin Human Regular 100 unit 101 mls @ 0 mls/hr 06/02/20 07:30 06/02/20 21:09 / Sodium Chloride IV 7.5 units/hr .Q0M LIYA 7.575 mls/hr Titration Protocol Per Protocol Dexmedetomidine HCl 400 mcg/ 100 mls @ 4.37 mls/hr 06/02/20 11:45 06/02/20 12:15 IV Solution IV 06/05/20 11:44 0.2 mcg/kg/hr .[id number] LIYA 4.37 mls/hr Administration Protocol 0.2 MCG/KG/HR Levofloxacin 500 mg 05/31/20 13:00 06/02/20 08:56 Levofloxacin 500 Mg Tab PO 500 mg DAILY LIYA Administration Magnesium Hydroxide 2,400 mg 05/23/20 09:00 Magnesium Hydroxide 2,400 Mg/10 Ml Cup PO BID PRN Constipation Metoprolol Tartrate 12.5 mg 06/01/20 09:00 06/02/20 19:55 Metoprolol Tartrate 12.5 Mg Tab NG-TUBE 12.5 mg BID LIYA Administration Miscellaneous Information 1 each 05/22/20 13:32 Potassium Replacement Protocol 1 Each Misc MISCELLANE DAILY PRN Per Protocol Protocol Miscellaneous Information 1 each 05/22/20 13:32 Magnesium Replacement Protocol 1 Each Misc MISCELLANE DAILY PRN Per Protocol Protocol Miscellaneous Information 1 each 05/22/20 13:32 Phosphorus Replacement Protoco 1 Each Misc MISCELLANE DAILY PRN Per Protocol Protocol Ondansetron HCl 4 mg 05/22/20 13:32 05/22/20 21:52 Ondansetron 4 Mg/2 Ml Vial IVP 4 mg Q6HR PRN Administration Nausea And Vomiting Pantoprazole Sodium 40 mg 05/24/20 09:00 06/02/20 08:57 Pantoprazole 40 Mg/10 Ml Vial IVP 40 mg DAILY LIYA Administration Polyethylene Glycol 17 gm 05/31/20 13:00 06/02/20 08:57 Polyethylene Glycol 3350 17 Gm Powd.Pack PO 17 gm DAILY LIYA Administration Quetiapine Fumarate 100 mg 06/02/20 21:00 06/02/20 19:59 Quetiapine 100 Mg Tab PO 100 mg BID LIYA Administration Senna/Docusate Sodium 2 each 05/23/20 21:00 06/02/20 19:55 Sennosides-Docusate Sodium 1 Each Tab PO 2 each HS LIYA Administration Sodium Chloride 10 ml 05/22/20 21:00 06/02/20 19:56 Sodium Chloride 0.9% Flush 10 Ml Syringe IV 10 ml BID LIYA Administration Objective - Vital Signs Vital signs: Vital Signs Temp 99.1 F 06/02/20 16:00 Pulse 70 06/02/20 20:50 Resp 12 06/02/20 19:00 BP 114/59 06/02/20 19:00 Pulse Ox 95 06/02/20 19:00 Intake & Output 06/02/20 06/02/20 06/03/20 06:59 18:59 06:59 Intake Total 1084.000 942.645 43.248 Output Total 449 395 30 Balance 635.000 547.645 13.248 Weight 87.4 kg 87.4 kg Intake: IV 240 240 20 LR 240 240 20 Intake, IV Titration 100.000 82.645 23.248 Amount Dexmedetomidine/0.9% NaCl 100.000 0.145 (Pmx) 400 mcg In Empty Bag 1 bag @ Titrate IV . Q0M [facility]YA Rx#:[id number] Insulin Regular 100 unit 82.500 23.248 In Sodium Chloride 0.9% 100 ml @ Per Protocol IV .Q0M LIYA Rx#:[id number] Tube Feeding 624 560 Other 120 60 Output: Urine 449 395 30 Other: Voiding Method Indwelling Catheter Indwelling Catheter ABP, PAP, CO, CI - Last Documented Arterial Blood Pressure 103/42 Pulmonary Artery Pressure 32/15 Cardiac Output 4.4 Cardiac Index 2.2 - Exam -GENERAL: The patient is sedated and on mechanical ventilation, status post tracheostomy HEENT: Pupils are round and equally reacting to light. EOMI. No scleral icterus. No conjunctival pallor. Normocephalic, atraumatic. No pharyngeal erythema. No thyromegaly. CARDIOVASCULAR: S1 and S2 present. No murmurs, rubs, or gallops. PULMONARY: Chest is clear to auscultation, no wheezing or crackles. -ABDOMEN: Soft, nontender, nondistended, normoactive bowel sounds. No palpable organomegaly. PEG tube is in place MUSCULOSKELETAL: No joint swelling or deformity. EXTREMITIES: No cyanosis, clubbing, or pedal edema. NEUROLOGICAL: Gross neurological examination did not reveal any focal deficits. SKIN: No rashes. no petechiae. - Labs CBC & Chem 7: 06/02/20 05:13 06/02/20 05:13 Labs: Abnormal Lab Results - Last 24 Hours (Table) 06/02/20 06/02/20 06/02/20 Range/Units 00:02 05:05 05:13 RBC 2.95 L (4.30-5.90) m/uL Hgb 8.6 L (13.0-17.5) gm/dL Hct 26.8 L (39.0-53.0) % Lymphocytes # 0.9 L (1.0-4.8) k/uL ABG pH (7.35-7.45) ABG HCO3 (21-25) mmol/L ABG Total CO2 (19-24) mmol/L ABG O2 Saturation (94-97) % Sodium (137-145) mmol/L Chloride (98-107) mmol/L Carbon Dioxide (22-30) mmol/L BUN (9-20) mg/dL Glucose (74-99) mg/dL POC Glucose (mg/dL) 258 H 237 H (75-99) mg/dL Calcium (8.4-10.2) mg/dL Total Protein (6.3-8.2) g/dL Albumin (3.5-5.0) g/dL 06/02/20 06/02/20 06/02/20 Range/Units 05:13 05:58 07:35 RBC (4.30-5.90) m/uL Hgb (13.0-17.5) gm/dL Hct (39.0-53.0) % Lymphocytes # (1.0-4.8) k/uL ABG pH 7.49 H (7.35-7.45) ABG HCO3 33 H (21-25) mmol/L ABG Total CO2 34 H (19-24) mmol/L ABG O2 Saturation 98.7 H (94-97) % Sodium 134 L (137-145) mmol/L Chloride 96 L (98-107) mmol/L Carbon Dioxide 34 H (22-30) mmol/L BUN 24 H (9-20) mg/dL Glucose 224 H (74-99) mg/dL POC Glucose (mg/dL) 247 H (75-99) mg/dL Calcium 8.2 L (8.4-10.2) mg/dL Total Protein 5.3 L (6.3-8.2) g/dL Albumin 2.5 L (3.5-5.0) g/dL 06/02/20 06/02/20 06/02/20 Range/Units 09:10 10:08 11:05 RBC (4.30-5.90) m/uL Hgb (13.0-17.5) gm/dL Hct (39.0-53.0) % Lymphocytes # (1.0-4.8) k/uL ABG pH (7.35-7.45) ABG HCO3 (21-25) mmol/L ABG Total CO2 (19-24) mmol/L ABG O2 Saturation (94-97) % Sodium (137-145) mmol/L Chloride (98-107) mmol/L Carbon Dioxide (22-30) mmol/L BUN (9-20) mg/dL Glucose (74-99) mg/dL POC Glucose (mg/dL) 183 H 160 H 147 H (75-99) mg/dL Calcium (8.4-10.2) mg/dL Total Protein (6.3-8.2) g/dL Albumin (3.5-5.0) g/dL 06/02/20 06/02/20 06/02/20 Range/Units 11:50 14:40 16:14 RBC (4.30-5.90) m/uL Hgb (13.0-17.5) gm/dL Hct (39.0-53.0) % Lymphocytes # (1.0-4.8) k/uL ABG pH (7.35-7.45) ABG HCO3 (21-25) mmol/L ABG Total CO2 (19-24) mmol/L ABG O2 Saturation (94-97) % Sodium (137-145) mmol/L Chloride (98-107) mmol/L Carbon Dioxide (22-30) mmol/L BUN (9-20) mg/dL Glucose (74-99) mg/dL POC Glucose (mg/dL) 130 H 146 H 194 H (75-99) mg/dL Calcium (8.4-10.2) mg/dL Total Protein (6.3-8.2) g/dL Albumin (3.5-5.0) g/dL 06/02/20 06/02/20 06/02/20 Range/Units 17:01 18:10 18:58 RBC (4.30-5.90) m/uL Hgb (13.0-17.5) gm/dL Hct (39.0-53.0) % Lymphocytes # (1.0-4.8) k/uL ABG pH (7.35-7.45) ABG HCO3 (21-25) mmol/L ABG Total CO2 (19-24) mmol/L ABG O2 Saturation (94-97) % Sodium (137-145) mmol/L Chloride (98-107) mmol/L Carbon Dioxide (22-30) mmol/L BUN (9-20) mg/dL Glucose (74-99) mg/dL POC Glucose (mg/dL) 202 H 192 H 184 H (75-99) mg/dL Calcium (8.4-10.2) mg/dL Total Protein (6.3-8.2) g/dL Albumin (3.5-5.0) g/dL 06/02/20 06/02/20 Range/Units 20:00 21:07 RBC (4.30-5.90) m/uL Hgb (13.0-17.5) gm/dL Hct (39.0-53.0) % Lymphocytes # (1.0-4.8) k/uL ABG pH (7.35-7.45) ABG HCO3 (21-25) mmol/L ABG Total CO2 (19-24) mmol/L ABG O2 Saturation (94-97) % Sodium (137-145) mmol/L Chloride (98-107) mmol/L Carbon Dioxide (22-30) mmol/L BUN (9-20) mg/dL Glucose (74-99) mg/dL POC Glucose (mg/dL) 142 H 124 H (75-99) mg/dL Calcium (8.4-10.2) mg/dL Total Protein (6.3-8.2) g/dL Albumin (3.5-5.0) g/dL Microbiology - Last 24 Hours (Table) 06/02/20 08:40 Gram Stain - Preliminary Sputum Sputum Culture - Preliminary Assessment and Plan Assessment: Triple-vessel coronary artery disease status post bypass surgery on 05/22 Acute hypoxic respiratory failure on mechanical ventilation. Status post tracheostomy and PEG tube replacement Agitation with altered mental status, currently sedated. Difficult coming off sedation Possible elements of pulmonary infiltrate or pneumonia. History of CVA Ischemic cardiomyopathy with ejection fraction 45-50% Plan: This is a 74 years old male who presents with H and respiratory failure with difficulty, no ventilation. Patient is followed by many consultants including pulmonary/critical care team, face boss, surgery and the primary cardi othoracic team. Continue with aspirin, Plavix and Levaquin. Labs and medication were reviewed.. Continue same treatment. Continue with symptomatic treatment. Resume home medication. Monitor lytes and vitals. DVT and GI prophylaxis. Further recommendations as per clinical course of the patient DVT prophylaxis: Subcutaneous heparin GI Prophylaxis: Ppi Prognosis is guarded
[2020-06-02 22:10] LABS: Glucose,Whole Blood 106 mg/dL (75-99)
[2020-06-02 23:08] LABS: Glucose,Whole Blood 148 mg/dL (75-99)
[2020-06-03 00:24] LABS: Glucose,Whole Blood 138 mg/dL (75-99)
[2020-06-03 01:16] LABS: Glucose,Whole Blood 108 mg/dL (75-99)
[2020-06-03 01:50] LABS: Glucose,Whole Blood 105 mg/dL (75-99)
[2020-06-03 02:55] LABS: Glucose,Whole Blood 140 mg/dL (75-99)
[2020-06-03] MEDS: IPRATROPIUM-ALBUTEROL 3 ML NEB INHALATION SCH ×6 (03:19→23:21)
[2020-06-03 04:00] LABS: Glucose,Whole Blood 177 mg/dL (75-99)
[2020-06-03 05:07] LABS: Glucose,Whole Blood 186 mg/dL (75-99)
[2020-06-03] MEDS: HEPARIN SODIUM,PORCINE 5,000 UNIT/ML 1 ML VIAL SQ SCH ×3 (05:12→22:52)
[2020-06-03 05:30] LABS: ABG Base Excess 9.7 mmol/L; ABG HCO3 33 mmol/L (21-25); ABG Oxygen Saturation 99.1 % (94-97); ABG PCO2 44 mmHg (35-45); ABG PH 7.49 (7.35-7.45); ABG PO2 101 mmHg (83-108); ABG TCO2 34 mmol/L (19-24); Allen Test Performed? Yes
[2020-06-03 05:35] LABS: Basophils # (A) 0.1 k/uL (0-0.2); Basophils % (A) 1 %; Eosinophils # (A) 0.3 k/uL (0-0.7); Eosinophils % (A) 3 %; HCT 25.2 % (39.0-53.0); HGB 8.2 gm/dL (13.0-17.5); Hypochromasia Slight; Lymphocytes # (A) 1.3 k/uL (1.0-4.8); Lymphocytes % (A) 13 %; MCH 29.4 pg (25.0-35.0); MCHC 32.4 g/dL (31.0-37.0); MCV 90.7 fL (80.0-100.0); Mean Platelet Volume 8.4; Monocytes # (A) 0.5 k/uL (0-1.0); Monocytes % (A) 4 %; Neutrophils # (A) 7.6 k/uL (1.3-7.7); Neutrophils % (A) 76 %; Platelet Count 404 k/uL (150-450); RBC 2.78 m/uL (4.30-5.90); RDW 13.5 % (11.5-15.5)
[2020-06-03 06:07] LABS: Glucose,Whole Blood 157 mg/dL (75-99)
[2020-06-03 06:26] LABS: African American GFR (CKD) >90 (>60 ml/min/1.73 sqM); Anion Gap 2 mmol/L; Blood Urea Nitrogen 27 mg/dL (9-20); Calcium 8.1 mg/dL (8.4-10.2); Carbon Dioxide 33 mmol/L (22-30); Chloride 100 mmol/L (98-107); Glucose 155 mg/dL (74-99); Non-African American GFR(CKD) >90 (>60 ml/min/1.73 sqM); Potassium 4.3 mmol/L (3.5-5.1); Sodium 135 mmol/L (137-145)
[2020-06-03] MEDS: DEXMEDETOMIDINE/0.9% NACL(PMX) 400 MCG in EMPTY BAG 1 BAG IV SCH ×2 (06:54→22:52)
[2020-06-03 07:06] LABS: Glucose,Whole Blood 134 mg/dL (75-99)
--- NOTE | 2020-06-03 07:36 | P.PN ---
Subjective Progress Note Date: 06/03/20 74-year-old male patient with post four-vessel bypass surgery. The patient is postop day #7 the patient underwent DOOLEY to LAD and saphenous vein graft to obtuse marginal and PDA. The patient has cardiomyopathy with ejection fraction of 45%. The patient has insulin-dependent diabetes mellitus and the patient has a previous history of CVA including with a short-term memory loss and impulsivity. Postextubation and currently the patient remains on a mechanical ventilator. His cardiac rhythm is sinus. He is hemodynamically stable. The patient remains on assist control mode of ventilation at the rate of 16 with a tidal volume of 450 and FiO2 of 25% and a PEEP of 5. He is post exhibition insertion and the patient will be started on feeding for nutritional support. Sedation is with propofol at a rate of 30mcg per KG per minute and insulin drip is running 4U units an hour for blood sugar control. Chest x-ray showing some retrocardiac infiltration and left basilar airspace disease. The patient is currently on Levaquin as an empiric antibiotic coverage. The patient is on DuoNeb nebulized treatments around the clock, aspirin and Plavix and the patient is also on metoprolol 25 mg by mouth twice a day. The sputum culture has shown no growth. Urine cultures no growth. A CAT scan of the brain that showed no evidence of any acute intracranial hemorrhage or midline shift. This is uncha nged compared to previous CT if the brain of November 2019. The blood gases from today showed a pH of 7.5 with a pCO2 of 40 and pO2 of 79. Peak airway pressures nonelevated at 22. X-ray showing cardiomegaly. If she was in a good location. The patient has pulmonary vessel congestion. There is also bowel loops on the right hemidiaphragm. There is also volume loss and the patient is smaller lung volumes. The patient was given a dose of Lasix 40 mg of push yesterday. His net fluid balance for yesterday is negative 255 mL. urine output is in order of 30-60 mL an hour. Patient is also on Seroquel 50 mg by mouth twice a day. He is on Levemir insulin was introduced for blood sugar control. on 05/30/2020, the patient remains sedated with propofol. He failed a sedation holiday yesterday and the same will be done today. He is currently off of a 4- 30 g per KG per minute and this is being gradually weaned off. I was told that his mental status was not appropriate even preoperatively and discomfort worse postop. In any rate, we are going to give the patient later sedation holiday. The patient is an assist-control mode at the rate of 16 with tidal volume of 450 FiO2 of 25% with a PEEP of 5. Chest x-ray showing pulmonary vascular congestion, small bilateral pleural effusions and cardiomegaly. ET tube is in a good location. No significant orotracheal secretions. Sternal wound is not draining at this point in time and it's dry and clean. His cardiac rhythm is sinus. He is on no pressors. He is receiving enteral feeding for nutritional support. They the patient is on Levemir at 25 units and the patient is also receiving psychiatric coverage. Blood sugars has been in the low 200s. Urine output is adequate for now. No fever. No other active issues for now. He remains on Levaquin. He was given a dose of Lasix yesterday 40 mg IV push and he is in a 0 fluid balance over the past 24 hours. Active site is clean and intact. No abdominal distention. He is postop day #8. He has also an umbilical hernia which is easily reducible.the blood gas from today showed a pH of 7.5 with a pCO2 of 41 and a pO2 of 90 and this was done and FiO2 of 25%. Airway pressures are not elevated. on 05/31/2020, the patient remains intubated. He had a failed extubation yeste rday. Postextubation, he became quite restless and agitated and he had also questioning the stridorous breathing as the patient was having inspiratory and expiratory harsh noise coming from his neck area. Obviously within 10 minutes, decompensated, became hypoxic and hypotensive. I had to be intubated and immediately on an emergency basis. He currently is intubated with a #8 orotracheal tube. He is on a mechanical ventilator. He is an FiO2 of 40% with a PEEP of 5 and tidal volume 450 with a rate of 16. Chest x-ray showing small bilateral pleural effusions. ET tube is in a good location. He is receiving daily Lasix doses. He is pH was at 7.5757 with a pCO2 of 35 and pO2 138. His serum bicarb is at 33. As such she has a combination of respiratory and metabolic alkalosis. He is hemodynamically stable. He is in a normal sinus rhythm. He is not requiring any pressors. Obviously mentation is an ongoing issue with this patient. The plan for now is to proceed with a tracheostomy tube insertion. He already had his PEG tube and an acute visit currently on hold. Otherwise no other significant events overnight. He is producing adequate amount of urine output. Sternal stable clean and intact. nnow on 06/01/2020 commands seeing the patient for a follow-up. The patient is post tracheostomy tube insertion. This morning is calm and comfortable on propofol which is running at 30 mics.this will hopefully gradually weaned off today. Meanwhile, the patient is hemodynamically stable. This morning he is an assist-control mode of ventilation. He is an FiO2 of 40% with tidal volume of 450 and a PEEP of 5 with a respiratory rate of 16. Chest x-ray shows typical postsurgical changes in the tracheostomy is in good location. No acute pulmonary infiltrates.the patient's blood gas showed a pH of 7.49 with a pCO2 of 44 and pO2 of 92. Hemoglobin stable at 9.4. The patient is afebrile. Sternal wound is dry clean and intact. He is receiving bolus feeding. Insulin drip was discontinued as the patient's blood sugar has been under much better control and tighter control for now.no other significant events otherwise. The patient is producing adequate amount of urine output. His net fluid balance over the past 24 hours has been +342 mL. On today's evaluation of 06/02/2020, the patient is on Precedex running at 0.4 mcg/kg/h. The patient is arousable. He is following some simple commands. He is also on Seroquel 75 mg by mouth twice a day. No agitation. No restlessness. Hemodynamically stable. He is on no pressors. He is receiving intermittent enteral feeding for nutritional support. Sternum is stable clean and intact. No drainage from the sternal wound. Active site is also clearing. He remains on a mechanical ventilator. Earlier this morning he was undergoing and psychosis control mode at a tidal volume of 400 with a rate of 16 and FiO2 of 40% with a PEEP of 5. Chest x-ray shows atelectatic changes small effusion the lung bases bilaterally. Tracheostomy tube is in a good location the patient has a #8 Shiley. The blood gas showed a pH of 7.49 with a pCO2 of 43 and pO2 of 87. I checked the patient's weaning parameters. The patient is still generating a lower tidal volumes and this is partly from the fact that the patient is still sedated. Blood sugar is still elevated and the patient will need an insulin drip for blood sugar control. On today's evaluation of 06/03/2020, the patient is on Precedex at 0.2 mcg/kg/h. He is arousable. He is following some simple commands. I switched to pressure support mode of ventilation. On a pressure support of 7 and a PEEP of 5, tidal volumes are quite low in the 300s range. Based on that, I switched this patient's SIMV of his from today includes a pH of 7.49 with a pCO2 of 44 and pO2 of 11. The chest x-ray from today shows postsurgical changes. Tracheostomy tube is in a good location. Atelectatic changes in the right lung base. Small effusions. The fluid balance over the past 24 hours has been in the order of +1 L. The patient is afebrile. The patient has a #8 [address] trache[address] tube in place. No other significant events. Blood sugars tightly controlled on an insulin drip I 9 units an hour drip. He is still on Seroquel 100 mg by mouth twice a day. The plan today is gradually wean off the Precedex and hopefully remove it completely. Objective - Vital Signs Vital signs: Vital Signs Temp 98.2 F 06/03/20 04:00 Pulse 70 06/03/20 07:00 Resp 24 06/03/20 07:00 BP 111/51 06/03/20 07:00 Pulse Ox 97 06/03/20 07:00 Intake & Output 06/02/20 06/03/20 06/03/20 18:59 06:59 18:59 Intake Total 242.079 2380.883 320 Output Total 395 540 45 Balance 547.645 487.883 275 Weight 87.4 kg 86.9 kg Intake: IV 240 240 20 LR 240 240 20 Intake, IV Titration 82.645 157.883 Amount Dexmedetomidine/0.9% NaCl 81.501 (Pmx) 400 mcg In Empty Bag 1 bag @ 0.2 MCG/KG/HR 4.37 mls/hr IV .[id number] [facility] Rx#:[id number] Dexmedetomidine/0.9% NaCl 0.145 (Pmx) 400 mcg In Empty Bag 1 bag @ Titrate IV . Q0M [facility] Rx#:[id number] Insulin Regular 100 unit 82.500 76.382 In Sodium Chloride 0.9% 100 ml @ Per Protocol IV .Q0M [facility] Rx#:[id number] Tube Feeding 560 540 270 Other 60 90 30 Output: Urine 395 540 45 Other: Voiding Method Indwelling Catheter Indwelling Catheter ABP, PAP, CO, CI - Last Documented Arterial Blood Pressure 103/42 Pulmonary Artery Pressure 32/15 Cardiac Output 4.4 Cardiac Index 2.2 - Exam GENERAL EXAM: the patient has a tracheostomy tube in place.asynchronous with a mechanical ventilator. Is calm and comfortable.. Is on board for sedation. He is unresponsive. I think his mentation waxes and wanes and he is currently following some simple commands. He is not agitated. He seems to be sick sinus with a mechanical ventilator. HEAD: Normocephalic. EYES: Sluggish reaction of pupils, equal size. NOSE: Oral endotracheal and gastric tube secured in place. Clear with pink turbinates. THROAT: No erythema or exudates., post insertion of a tracheostomy tube, #8 Shiley. NECK: No masses, no JVD. CHEST: Sternal dressing dry and intact. Serous drainage noted from incision. No chest wall deformity.no active drainage from the chest wall wound. No surrounding cellulitis at this point in time. LUNGS: Equal air entry with crackles in the bilateral posterior bases.. CVS: S1 and S2 normal with no audible murmur, regular rhythm. ABDOMEN: No hepatosplenomegaly, normal bowel sounds, no guarding or rigidity.the patient has an umbilical hernia. The patient also has a PEG tube in place SPINE: No scoliosis or deformity SKIN: No rashes CENTRAL NERVOUS SYSTEM: Tone is normal in all 4 extremities. EXTREMITIES: There is no peripheral edema. No clubbing, no cyanosis. Peripheral pulses are intact. - Labs CBC & Chem 7: 06/03/20 04:54 06/03/20 04:54 Labs: Abnormal Lab Results - Last 24 Hours (Table) 06/02/20 06/02/20 06/02/20 Range/Units 07:35 09:10 10:08 RBC (4.30-5.90) m/uL Hgb (13.0-17.5) gm/dL Hct (39.0-53.0) % ABG pH (7.35-7.45) ABG HCO3 (21-25) mmol/L ABG Total CO2 (19-24) mmol/L ABG O2 Saturation (94-97) % Sodium (137-145) mmol/L Carbon Dioxide (22-30) mmol/L BUN (9-20) mg/dL Creatinine (0.66-1.25) mg/dL Glucose (74-99) mg/dL POC Glucose (mg/dL) 247 H 183 H 160 H (75-99) mg/dL Calcium (8.4-10.2) mg/dL 06/02/20 06/02/20 06/02/20 Range/Units 11:05 11:50 14:40 RBC (4.30-5.90) m/uL Hgb (13.0-17.5) gm/dL Hct (39.0-53.0) % ABG pH (7.35-7.45) ABG HCO3 (21-25) mmol/L ABG Total CO2 (19-24) mmol/L ABG O2 Saturation (94-97) % Sodium (137-145) mmol/L Carbon Dioxide (22-30) mmol/L BUN (9-20) mg/dL Creatinine (0.66-1.25) mg/dL Glucose (74-99) mg/dL POC Glucose (mg/dL) 147 H 130 H 146 H (75-99) mg/dL Calcium (8.4-10.2) mg/dL 06/02/20 06/02/20 06/02/20 Range/Units 16:14 17:01 18:10 RBC (4.30-5.90) m/uL Hgb (13.0-17.5) gm/dL Hct (39.0-53.0) % ABG pH (7.35-7.45) ABG HCO3 (21-25) mmol/L ABG Total CO2 (19-24) mmol/L ABG O2 Saturation (94-97) % Sodium (137-145) mmol/L Carbon Dioxide (22-30) mmol/L BUN (9-20) mg/dL Creatinine (0.66-1.25) mg/dL Glucose (74-99) mg/dL POC Glucose (mg/dL) 194 H 202 H 192 H (75-99) mg/dL Calcium (8.4-10.2) mg/dL 06/02/20 06/02/20 06/02/20 Range/Units 18:58 20:00 21:07 RBC (4.30-5.90) m/uL Hgb (13.0-17.5) gm/dL Hct (39.0-53.0) % ABG pH (7.35-7.45) ABG HCO3 (21-25) mmol/L ABG Total CO2 (19-24) mmol/L ABG O2 Saturation (94-97) % Sodium (137-145) mmol/L Carbon Dioxide (22-30) mmol/L BUN (9-20) mg/dL Creatinine (0.66-1.25) mg/dL Glucose (74-99) mg/dL POC Glucose (mg/dL) 184 H 142 H 124 H (75-99) mg/dL Calcium (8.4-10.2) mg/dL 06/02/20 06/02/20 06/03/20 Range/Units 22:09 23:06 00:22 RBC (4.30-5.90) m/uL Hgb (13.0-17.5) gm/dL Hct (39.0-53.0) % ABG pH (7.35-7.45) ABG HCO3 (21-25) mmol/L ABG Total CO2 (19-24) mmol/L ABG O2 Saturation (94-97) % Sodium (137-145) mmol/L Carbon Dioxide (22-30) mmol/L BUN (9-20) mg/dL Creatinine (0.66-1.25) mg/dL Glucose (74-99) mg/dL POC Glucose (mg/dL) 106 H 148 H 138 H (75-99) mg/dL Calcium (8.4-10.2) mg/dL 06/03/20 06/03/20 06/03/20 Range/Units 01:14 01:48 02:54 RBC (4.30-5.90) m/uL Hgb (13.0-17.5) gm/dL Hct (39.0-53.0) % ABG pH (7.35-7.45) ABG HCO3 (21-25) mmol/L ABG Total CO2 (19-24) mmol/L ABG O2 Saturation (94-97) % Sodium (137-145) mmol/L Carbon Dioxide (22-30) mmol/L BUN (9-20) mg/dL Creatinine (0.66-1.25) mg/dL Glucose (74-99) mg/dL POC Glucose (mg/dL) 108 H 105 H 140 H (75-99) mg/dL Calcium (8.4-10.2) mg/dL 06/03/20 06/03/20 06/03/20 Range/Units 03:58 04:54 04:54 RBC 2.78 L (4.30-5.90) m/uL Hgb 8.2 L (13.0-17.5) gm/dL Hct 25.2 L (39.0-53.0) % ABG pH (7.35-7.45) ABG HCO3 (21-25) mmol/L ABG Total CO2 (19-24) mmol/L ABG O2 Saturation (94-97) % Sodium 135 L (137-145) mmol/L Carbon Dioxide 33 H (22-30) mmol/L BUN 27 H (9-20) mg/dL Creatinine 0.64 L (0.66-1.25) mg/dL Glucose 155 H (74-99) mg/dL POC Glucose (mg/dL) 177 H (75-99) mg/dL Calcium 8.1 L (8.4-10.2) mg/dL 06/03/20 06/03/20 06/03/20 Range/Units 05:05 05:16 06:06 RBC (4.30-5.90) m/uL Hgb (13.0-17.5) gm/dL Hct (39.0-53.0) % ABG pH 7.49 H (7.35-7.45) ABG HCO3 33 H (21-25) mmol/L ABG Total CO2 34 H (19-24) mmol/L ABG O2 Saturation 99.1 H (94-97) % Sodium (137-145) mmol/L Carbon Dioxide (22-30) mmol/L BUN (9-20) mg/dL Creatinine (0.66-1.25) mg/dL Glucose (74-99) mg/dL POC Glucose (mg/dL) 186 H 157 H (75-99) mg/dL Calcium (8.4-10.2) mg/dL 06/03/20 Range/Units 07:05 RBC (4.30-5.90) m/uL Hgb (13.0-17.5) gm/dL Hct (39.0-53.0) % ABG pH (7.35-7.45) ABG HCO3 (21-25) mmol/L ABG Total CO2 (19-24) mmol/L ABG O2 Saturation (94-97) % Sodium (137-145) mmol/L Carbon Dioxide (22-30) mmol/L BUN (9-20) mg/dL Creatinine (0.66-1.25) mg/dL Glucose (74-99) mg/dL POC Glucose (mg/dL) 134 H (75-99) mg/dL Calcium (8.4-10.2) mg/dL Microbiology - Last 24 Hours (Table) 06/02/20 08:40 Gram Stain - Preliminary Sputum Sputum Culture - Preliminary Assessment and Plan Plan: 1 Coronary artery disease status post three-vessel coronary artery bypass grafting. Postoperative day #12. For now, the weaning has been complicated as the patient is having difficulties with altered mentation. He is becoming quite agitated and is having difficulties in coming off sedation. he was given a second trial of extubation and he failed miserably and had to be reintubated. The patient is post tracheostomy tube insertion. For now, we are going and SIMV mode of slow wean. At the same time the patient is being gradually weaned off sedation. He seems to be much more calm and comfortable. He is on a combination of Seroquel and Precedex is being gradually weaned off. 2 Acute hypoxemic respiratory failure requiring reintubation and placed back on the mechanical ventilator on 05/25/2020, unexpected , currently has a tracheostomy tube in place #8 Shiley. 3 Ischemic cardiomyopathy with ejection fraction 45-50% 4 Hyperlipidemia 5 Diabetes mellitus, currently off insulin for blood sugar control. 6 Chronic bronchial asthma 7 History of chronic tobacco dependence 8 Recent CVA in November 2019 with ongoing altered mental status 9 Hypertension, history of 10 insertion of a PEG tube for enteral feeding 11 questionable sternal wound infection as the patient has some drainage, the drainage is serous at this point in time. plan Sedation to be weaned off slowly and the mental status will be monitored enteral feeding for nutritional support. insulin drip for blood sugar control Gentle sedation wean and check weaning parameters Continue Levaquin Switch the patient and SIMV mode with a backup rate of 10 and a pressure support of 7 with a PEEP of 5. FiO2 is 40%. continue supportive care CC evaluation more than 30 minutes. Time with Patient: Greater than 30
--- NOTE | 2020-06-03 08:12 | P.PN ---
Subjective Progress Note Date: 06/03/20 Principal diagnosis: Unstable angina, severe calcific 3 vessel coronary artery disease. Previous medical history of recent stroke in November 2019 with continued short-term memory loss and impulsivity, cardiomyopathy with EF 45-50%, hypertension, hyperlipidemia, insulin-dependent diabetes with preoperative hemoglobin A1c 8%, asthma, previous tobacco dependence with preoperative FEV1 75% of predicted, and family history of premature coronary artery disease with father diagnosed less than 60 years old. POD #12 coronary artery bypass grafting 3 with the left internal mammary artery to the left anterior descending artery, reverse saphenous vein graft off the aorta to the first obtuse marginal artery and the posterior descending artery with endoscopic vein harvesting of the left lower extremity greater saphenous vein, clip ligation of the left atrial appendage with a 35 mm AtriClip and intraoperative transesophageal echocardiogram. Postoperative acute blood loss anemia and thrombocytopenia, expected outcomes given hemodilution and cardiopulmonary bypass pump Acute hypoxic respiratory failure requiring re-intubation, unexpected, likely from inability to clear secretions, prolonged mechanical ventilation POD #6 PEG tube placement POD #3 Tracheostomy placement The patient is laying in the ICU on mechanical ventilation, stable with minimal sedation. Remains in normal sinus rhythm, hemodynamically stable on no pressors. Does open his eyes, follows simple commands. Remains restrained as he is impulsive and does attempt to pull at his trach and PEG. No new events overnight. Objective - Vital Signs Vital signs: Vital Signs Temp 98.2 F 06/03/20 04:00 Pulse 72 06/03/20 07:48 Resp 24 06/03/20 07:00 BP 111/51 06/03/20 07:00 Pulse Ox 97 06/03/20 07:00 Intake & Output 06/02/20 06/03/20 06/03/20 18:59 06:59 18:59 Intake Total 487.148 4240.883 322.622 Output Total 395 540 45 Balance 547.645 487.883 277.622 Weight 87.4 kg 86.9 kg Intake: IV 240 240 20 LR 240 240 20 Intake, IV Titration 82.645 157.883 2.622 Amount Dexmedetomidine/0.9% NaCl 81.501 2.622 (Pmx) 400 mcg In Empty Bag 1 bag @ 0.2 MCG/KG/HR 4.37 mls/hr IV .[id number] [facility] Rx#:[id number] Dexmedetomidine/0.9% NaCl 0.145 (Pmx) 400 mcg In Empty Bag 1 bag @ Titrate IV . Q0M [facility] Rx#:[id number] Insulin Regular 100 unit 82.500 76.382 In Sodium Chloride 0.9% 100 ml @ Per Protocol IV .Q0M [facility] Rx#:[id number] Tube Feeding 560 540 270 Other 60 90 30 Output: Urine 395 540 45 Other: Voiding Method Indwelling Catheter Indwelling Catheter ABP, PAP, CO, CI - Last Documented Arterial Blood Pressure 103/42 Pulmonary Artery Pressure 32/15 Cardiac Output 4.4 Cardiac Index 2.2 - Constitutional General appearance: Present: no acute distress - Respiratory Details: Lungs sounds diminished bilaterally. Respirations even, nonlabored on mechani carlene ventilation. Current vent settings FiO2 40%, TV 400, RR 16, PEEP 5. ABGs this AM on those settings 7.49/44/101/33/99%/9.7 on those settings. 8.0 Shiley tracheostomy present - Cardiovascular Details: S1, S2 present. Regular rate and rhythm, sinus rhythm on telemetry with heart rate in the 60s. Sternum stable. Palpable peripheral pulses bilaterally. Trace upper extremity edema present, less than yesterday. Heart hugger in place, antiembolism stockings, SCDs present. - Gastrointestinal Gastrointestinal Comment(s): Abdomen soft, nontender, nondistended. Active bowel sounds present 4 quadrants. PEG tube in place, bolus tube feedings infusing per RD. Last BM 06/01/20 per nursing - Genitourinary Genitourinary Comment(s): Hearn present draining clear yellow urine. Output 35-55 mL per hour overnight, 885 mL in the last 24 hours - Integumentary Integumentary Comment(s): Skin is warm and dry. Anterior chest incision well approximated. Left lower extremity EVH site well approximated without redness or drainage. PEG tube incision without redness. Trach incision with small amount blood tinged drainage - Neurologic Neurologic Comment(s): does open eyes and moves extremities, occasionally to command - Musculoskeletal Musculoskeletal: Present: strength equal bilaterally - Allied health notes Allied health notes reviewed: nursing - Labs CBC & Chem 7: 06/03/20 04:54 06/03/20 04:54 Labs: Abnormal Lab Results - Last 24 Hours (Table) 1206/02/20 06/02/20 Range/Units 09:10 10:08 11:05 RBC (4.30-5.90) m/uL Hgb (13.0-17.5) gm/dL Hct (39.0-53.0) % ABG pH (7.35-7.45) ABG HCO3 (21-25) mmol/L ABG Total CO2 (19-24) mmol/L ABG O2 Saturation (94-97) % Sodium (137-145) mmol/L Carbon Dioxide (22-30) mmol/L BUN (9-20) mg/dL Creatinine (0.66-1.25) mg/dL Glucose (74-99) mg/dL POC Glucose (mg/dL) 183 H 160 H 147 H (75-99) mg/dL Calcium (8.4-10.2) mg/dL 06/02/20 06/02/20 06/02/20 Range/Units 11:50 14:40 16:14 RBC (4.30-5.90) m/uL Hgb (13.0-17.5) gm/dL Hct (39.0-53.0) % ABG pH (7.35-7.45) ABG HCO3 (21-25) mmol/L ABG Total CO2 (19-24) mmol/L ABG O2 Saturation (94-97) % Sodium (137-145) mmol/L Carbon Dioxide (22-30) mmol/L BUN (9-20) mg/dL Creatinine (0.66-1.25) mg/dL Glucose (74-99) mg/dL POC Glucose (mg/dL) 130 H 146 H 194 H (75-99) mg/dL Calcium (8.4-10.2) mg/dL 06/02/20 06/02/20 06/02/20 Range/Units 17:01 18:10 18:58 RBC (4.30-5.90) m/uL Hgb (13.0-17.5) gm/dL Hct (39.0-53.0) % ABG pH (7.35-7.45) ABG HCO3 (21-25) mmol/L ABG Total CO2 (19-24) mmol/L ABG O2 Saturation (94-97) % Sodium (137-145) mmol/L Carbon Dioxide (22-30) mmol/L BUN (9-20) mg/dL Creatinine (0.66-1.25) mg/dL Glucose (74-99) mg/dL POC Glucose (mg/dL) 202 H 192 H 184 H (75-99) mg/dL Calcium (8.4-10.2) mg/dL 06/02/20 06/02/20 06/02/20 Range/Units 20:00 21:07 22:09 RBC (4.30-5.90) m/uL Hgb (13.0-17.5) gm/dL Hct (39.0-53.0) % ABG pH (7.35-7.45) ABG HCO3 (21-25) mmol/L ABG Total CO2 (19-24) mmol/L ABG O2 Saturation (94-97) % Sodium (137-145) mmol/L Carbon Dioxide (22-30) mmol/L BUN (9-20) mg/dL Creatinine (0.66-1.25) mg/dL Glucose (74-99) mg/dL POC Glucose (mg/dL) 142 H 124 H 106 H (75-99) mg/dL Calcium (8.4-10.2) mg/dL 06/02/20 06/03/20 06/03/20 Range/Units 23:06 00:22 01:14 RBC (4.30-5.90) m/uL Hgb (13.0-17.5) gm/dL Hct (39.0-53.0) % ABG pH (7.35-7.45) ABG HCO3 (21-25) mmol/L ABG Total CO2 (19-24) mmol/L ABG O2 Saturation (94-97) % Sodium (137-145) mmol/L Carbon Dioxide (22-30) mmol/L BUN (9-20) mg/dL Creatinine (0.66-1.25) mg/dL Glucose (74-99) mg/dL POC Glucose (mg/dL) 148 H 138 H 108 H (75-99) mg/dL Calcium (8.4-10.2) mg/dL 06/03/20 06/03/20 06/03/20 Range/Units 01:48 02:54 03:58 RBC (4.30-5.90) m/uL Hgb (13.0-17.5) gm/dL Hct (39.0-53.0) % ABG pH (7.35-7.45) ABG HCO3 (21-25) mmol/L ABG Total CO2 (19-24) mmol/L ABG O2 Saturation (94-97) % Sodium (137-145) mmol/L Carbon Dioxide (22-30) mmol/L BUN (9-20) mg/dL Creatinine (0.66-1.25) mg/dL Glucose (74-99) mg/dL POC Glucose (mg/dL) 105 H 140 H 177 H (75-99) mg/dL Calcium (8.4-10.2) mg/dL 06/03/20 06/03/20 06/03/20 Range/Units 04:54 04:54 05:05 RBC 2.78 L (4.30-5.90) m/uL Hgb 8.2 L (13.0-17.5) gm/dL Hct 25.2 L (39.0-53.0) % ABG pH (7.35-7.45) ABG HCO3 (21-25) mmol/L ABG Total CO2 (19-24) mmol/L ABG O2 Saturation (94-97) % Sodium 135 L (137-145) mmol/L Carbon Dioxide 33 H (22-30) mmol/L BUN 27 H (9-20) mg/dL Creatinine 0.64 L (0.66-1.25) mg/dL Glucose 155 H (74-99) mg/dL POC Glucose (mg/dL) 186 H (75-99) mg/dL Calcium 8.1 L (8.4-10.2) mg/dL 06/03/20 06/03/20 06/03/20 Range/Units 05:16 06:06 07:05 RBC (4.30-5.90) m/uL Hgb (13.0-17.5) gm/dL Hct (39.0-53.0) % ABG pH 7.49 H (7.35-7.45) ABG HCO3 33 H (21-25) mmol/L ABG Total CO2 34 H (19-24) mmol/L ABG O2 Saturation 99.1 H (94-97) % Sodium (137-145) mmol/L Carbon Dioxide (22-30) mmol/L BUN (9-20) mg/dL Creatinine (0.66-1.25) mg/dL Glucose (74-99) mg/dL POC Glucose (mg/dL) 157 H 134 H (75-99) mg/dL Calcium (8.4-10.2) mg/dL Microbiology - Last 24 Hours (Table) 06/02/20 08:40 Gram Stain - Preliminary Sputum Sputum Culture - Preliminary - Imaging and Cardiology Chest x-ray: image reviewed Assessment and Plan Assessment: 1. Unstable angina, severe calcific 3 vessel coronary artery disease, status post three-vessel CABG 2. Recent stroke in November 2019 with continued short-term memory loss and impulsivity 3. Cardiomyopathy with EF 45-50% 4. Hypertension 5. Hyperlipidemia 6. Insulin-dependent diabetes with preoperative hemoglobin A1c 8% 7. Asthma 8. Previous tobacco dependence with preoperative FEV1 75% of predicted 9. Family history of premature coronary artery disease with father diagnosed less than 60 years old. 10. Postoperative acute blood loss anemia and thrombocytopenia, expected 11. Acute hypoxic respiratory failure requiring reintubation, unexpected 12. Metabolic alkalosis, hypokalemia 13. Malnutrition, s/p PEG tube placement 14. Prolonged mechanical ventilation, s/p tracheostomy placement Plan: 1. Continue aspirin, statin, Plavix, beta sarah therapy. 2. Ventilator managment, bronchodilators per pulmonology. Wean as tolerated, ventilator mode change to SIMV this morning 3. Will monitor daily labs and x-rays. Electrolyte replacement per protocol, replace potassium to keep K>4.2. 4. GI/DVT prophylaxis 5. Pain control with current medication regimen 6. Insulin management per Dr. Tafoya 7. Continue Hearn catheter 8. Strict accurate intake and output, daily weight 9. Continue tube feedings 10. Seroquel increase to 100 mg twice daily. Limit IV sedation as much as possible 11. Social work/case management on consult for discharge planning, patient will need LTAC 12. More recommendations to follow based on patient's progress Time with Patient: Greater than 30
[2020-06-03 08:33] LABS: Glucose,Whole Blood 115 mg/dL (75-99)
[2020-06-03 09:43] LABS: Glucose,Whole Blood 124 mg/dL (75-99)
[2020-06-03] MEDS: INSULIN REGULAR 100 UNIT in SODIUM CHLORIDE 0.9% 100 ML IV SCH (09:54)
--- NOTE | 2020-06-03 10:24 | XR ---
EXAMINATION TYPE: XR chest 1V portable DATE OF EXAM: 06/03/2020 COMPARISON: 06/02/2020 INDICATION: Post cardiac surgery TECHNIQUE: Single frontal view of the chest is obtained. FINDINGS: The heart size is enlarged. The pulmonary vasculature is normal. Mild right lower lobe infiltrate is present likely on the basis of atelectasis. Small right pleural e ffusion is likely present. There is silhouetting the left diaphragm. Left pleural effusion may be pre sent. Tracheostomy tube is in the midline with the tip above the roro. Sternotomy wires are present in the midline IMPRESSION: 1. Small bilateral pleural effusions. 2. Subsegmental atelectasis is likely present at the right lung base. 3. Tracheostomy tube in the midline
[2020-06-03] MEDS ORDERED: propofoL 100 ML IV ONE (10:26)
[2020-06-03] MEDS ORDERED: CISATRACURIUM 2 MG/ML 5 ML VIAL IV ONE (10:46)
[2020-06-03] MEDS: PANTOPRAZOLE 40 MG/10 ML VIAL IVP SCH (11:07)
[2020-06-03] MEDS: CHLORHEXIDINE GLUCONATE 15 ML CUP MUCOUS MEM SCH ×2 (11:07→22:52)
[2020-06-03] MEDS: LEVOFLOXACIN 500 MG TAB PO SCH (11:14)
[2020-06-03] MEDS: polyethylene glycoL 3350 17 GM POWD.PACK PO SCH (11:14)
[2020-06-03] MEDS: QUEtiapine 100 MG TAB PO SCH ×2 (11:14→20:11)
[2020-06-03] MEDS: CLOPIDOGREL 75 MG TAB PO SCH (11:14)
[2020-06-03] MEDS: ATORVASTATIN 40 MG TAB PO SCH (11:14)
[2020-06-03 11:18] LABS: Glucose,Whole Blood 125 mg/dL (75-99)
[2020-06-03 11:45] LABS: Glucose,Whole Blood 125 mg/dL (75-99)
--- NOTE | 2020-06-03 12:00 | P.OP ---
Date of Procedure: 06/03/20 Preoperative Diagnosis: PEG tube malfunction Postoperative Diagnosis: PEG tube malfunction Procedure(s) Performed: Placement of PEG tube Anesthesia: MAC Surgeon: Chivo Zamora Pathology: none sent Condition: stable Disposition: PACU Description of Procedure: The patient received IV sedation. The gastroscope was oropharynx and passed in the esophagus and stomach. The area where the cyst PEG tube was removed was visualized. A needle was placed through the O PEG tube tract. The needle was then snared and the wire was snared. The wire was brought the oropharynx. The PEG tube was cut to the wire. The PEG tube is brought down into the stomach. The PEG tube was secured at the 3 cm jose juan with the one-piece bolster. Patient tolerated the procedure well. He will start tube feeds in 48 hours
[2020-06-03] MEDS: LACTATED RINGERS 1,000 ML IV SCH (12:30)
[2020-06-03] MEDS: METOPROLOL TARTRATE 5 MG/5 ML VIAL IVP SCH ×2 (12:31→17:58)
[2020-06-03 13:21] LABS: Glucose,Whole Blood 106 mg/dL (75-99)
[2020-06-03 13:21] LABS: Glucose,Whole Blood 107 mg/dL (75-99)
[2020-06-03 14:18] LABS: Glucose,Whole Blood 125 mg/dL (75-99)
[2020-06-03 16:10] LABS: Glucose,Whole Blood 113 mg/dL (75-99)
--- NOTE | 2020-06-03 16:15 | P.PN ---
Subjective HISTORY OF PRESENT ILLNESS: Patient is status post CABG 3. Patient remains intubated. Patient was attempted to be weaned off the sedation however he did pull his PEG tube out this morning and additionally pulled his IV despite restraints. PHYSICAL EXAM: VITAL SIGNS: Reviewed. GENERAL: Well-developed in no acute distress. NECK: Supple. No JVD or thyromegaly, +trach LUNGS: Respirations even and unlabored. Lungs diminished. Remains on mechanical ventilation HEART: Regular rate and rhythm. S1 and S2 heard. EXTREMITIES: Normal range of motion. No clubbing or cyanosis. Peripheral pulses intact. No lower extremity edema ASSESSMENT: 1. Unstable angina, severe 3 vessel coronary artery disease, status post three- vessel CABG 2. Recent stroke in November 2019 with continued short-term memory loss and impulsivity 3. Ischemic Cardiomyopathy with EF 45-50% 4. Hypertension 5. Hyperlipidemia 6. Insulin-dependent diabetes with preoperative hemoglobin A1c 8% 7. Asthma 8. Previous tobacco dependence with preoperative FEV1 75% of predicted 9. Family history of premature coronary artery disease with father diagnosed less than 60 years old. PLAN: Patient did pull his PEG tube out and will likely go to surgery today to have it replaced. Patient very minimally responsive to commands and remains altered. Continue with supportive care. Continue aspirin, Plavix, statin, beta sarah. Prognosis guarded. Objective - Vital Signs Vital signs: Vital Signs Temp 97.7 F 06/03/20 08:00 Pulse 68 06/03/20 15:51 Resp 20 06/03/20 14:00 BP 106/55 06/03/20 14:00 Pulse Ox 100 06/03/20 14:00 Intake & Output 06/02/20 06/03/20 06/03/20 18:59 06:59 18:59 Intake Total 342.643 5405.883 695.530 Output Total 395 540 145 Balance 547.645 487.883 550.530 Weight 87.4 kg 86.9 kg Intake: IV 240 240 280 LR 240 240 280 Intake, IV Titration 82.645 157.883 115.530 Amount Dexmedetomidine/0.9% NaCl 81.501 2.622 (Pmx) 400 mcg In Empty Bag 1 bag @ 0.2 MCG/KG/HR 4.37 mls/hr IV .[id number] [facility] Rx#:[id number] Dexmedetomidine/0.9% NaCl 0.145 (Pmx) 400 mcg In Empty Bag 1 bag @ Titrate IV . Q0M [facility] Rx#:[id number] Insulin Regular 100 unit 82.500 76.382 55.902 In Sodium Chloride 0.9% 100 ml @ Per Protocol IV .Q0M [facility] Rx#:[id number] propofoL 1,000 mg In 57.006 Empty Bag 1 bag @ Titrate IV .Q0M [facility] Rx#: [id number] Tube Feeding 560 540 270 Other 60 90 30 Output: Urine 395 540 145 Other: Voiding Method Indwelling Catheter Indwelling Catheter ABP, PAP, CO, CI - Last Documented Arterial Blood Pressure 103/42 Pulmonary Artery Pressure 32/15 Cardiac Output 4.4 Cardiac Index 2.2 - Labs CBC & Chem 7: 06/03/20 04:54 06/03/20 04:54 Labs: Abnormal Lab Results - Last 24 Hours (Table) 06/02/20 06/02/20 06/02/20 Range/Units 16:14 17:01 18:10 RBC (4.30-5.90) m/uL Hgb (13.0-17.5) gm/dL Hct (39.0-53.0) % ABG pH (7.35-7.45) ABG HCO3 (21-25) mmol/L ABG Total CO2 (19-24) mmol/L ABG O2 Saturation (94-97) % Sodium (137-145) mmol/L Carbon Dioxide (22-30) mmol/L BUN (9-20) mg/dL Creatinine (0.66-1.25) mg/dL Glucose (74-99) mg/dL POC Glucose (mg/dL) 194 H 202 H 192 H (75-99) mg/dL Calcium (8.4-10.2) mg/dL 06/02/20 06/02/20 06/02/20 Range/Units 18:58 20:00 21:07 RBC (4.30-5.90) m/uL Hgb (13.0-17.5) gm/dL Hct (39.0-53.0) % ABG pH (7.35-7.45) ABG HCO3 (21-25) mmol/L ABG Total CO2 (19-24) mmol/L ABG O2 Saturation (94-97) % Sodium (137-145) mmol/L Carbon Dioxide (22-30) mmol/L BUN (9-20) mg/dL Creatinine (0.66-1.25) mg/dL Glucose (74-99) mg/dL POC Glucose (mg/dL) 184 H 142 H 124 H (75-99) mg/dL Calcium (8.4-10.2) mg/dL 06/02/20 06/02/20 06/03/20 Range/Units 22:09 23:06 00:22 RBC (4.30-5.90) m/uL Hgb (13.0-17.5) gm/dL Hct (39.0-53.0) % ABG pH (7.35-7.45) ABG HCO3 (21-25) mmol/L ABG Total CO2 (19-24) mmol/L ABG O2 Saturation (94-97) % Sodium (137-145) mmol/L Carbon Dioxide (22-30) mmol/L BUN (9-20) mg/dL Creatinine (0.66-1.25) mg/dL Glucose (74-99) mg/dL POC Glucose (mg/dL) 106 H 148 H 138 H (75-99) mg/dL Calcium (8.4-10.2) mg/dL 06/03/20 06/03/20 06/03/20 Range/Units 01:14 01:48 02:54 RBC (4.30-5.90) m/uL Hgb (13.0-17.5) gm/dL Hct (39.0-53.0) % ABG pH (7.35-7.45) ABG HCO3 (21-25) mmol/L ABG Total CO2 (19-24) mmol/L ABG O2 Saturation (94-97) % Sodium (137-145) mmol/L Carbon Dioxide (22-30) mmol/L BUN (9-20) mg/dL Creatinine (0.66-1.25) mg/dL Glucose (74-99) mg/dL POC Glucose (mg/dL) 108 H 105 H 140 H (75-99) mg/dL Calcium (8.4-10.2) mg/dL 06/03/20 06/03/20 06/03/20 Range/Units 03:58 04:54 04:54 RBC 2.78 L (4.30-5.90) m/uL Hgb 8.2 L (13.0-17.5) gm/dL Hct 25.2 L (39.0-53.0) % ABG pH (7.35-7.45) ABG HCO3 (21-25) mmol/L ABG Total CO2 (19-24) mmol/L ABG O2 Saturation (94-97) % Sodium 135 L (137-145) mmol/L Carbon Dioxide 33 H (22-30) mmol/L BUN 27 H (9-20) mg/dL Creatinine 0.64 L (0.66-1.25) mg/dL Glucose 155 H (74-99) mg/dL POC Glucose (mg/dL) 177 H (75-99) mg/dL Calcium 8.1 L (8.4-10.2) mg/dL 06/03/20 06/03/20 06/03/20 Range/Units 05:05 05:16 06:06 RBC (4.30-5.90) m/uL Hgb (13.0-17.5) gm/dL Hct (39.0-53.0) % ABG pH 7.49 H (7.35-7.45) ABG HCO3 33 H (21-25) mmol/L ABG Total CO2 34 H (19-24) mmol/L ABG O2 Saturation 99.1 H (94-97) % Sodium (137-145) mmol/L Carbon Dioxide (22-30) mmol/L BUN (9-20) mg/dL Creatinine (0.66-1.25) mg/dL Glucose (74-99) mg/dL POC Glucose (mg/dL) 186 H 157 H (75-99) mg/dL Calcium (8.4-10.2) mg/dL 06/03/20 06/03/20 06/03/20 Range/Units 07:05 08:30 09:42 RBC (4.30-5.90) m/uL Hgb (13.0-17.5) gm/dL Hct (39.0-53.0) % ABG pH (7.35-7.45) ABG HCO3 (21-25) mmol/L ABG Total CO2 (19-24) mmol/L ABG O2 Saturation (94-97) % Sodium (137-145) mmol/L Carbon Dioxide (22-30) mmol/L BUN (9-20) mg/dL Creatinine (0.66-1.25) mg/dL Glucose (74-99) mg/dL POC Glucose (mg/dL) 134 H 115 H 124 H (75-99) mg/dL Calcium (8.4-10.2) mg/dL 06/03/20 06/03/20 06/03/20 Range/Units 11:17 11:25 12:28 RBC (4.30-5.90) m/uL Hgb (13.0-17.5) gm/dL Hct (39.0-53.0) % ABG pH (7.35-7.45) ABG HCO3 (21-25) mmol/L ABG Total CO2 (19-24) mmol/L ABG O2 Saturation (94-97) % Sodium (137-145) mmol/L Carbon Dioxide (22-30) mmol/L BUN (9-20) mg/dL Creatinine (0.66-1.25) mg/dL Glucose (74-99) mg/dL POC Glucose (mg/dL) 125 H 125 H 106 H (75-99) mg/dL Calcium (8.4-10.2) mg/dL 06/03/20 06/03/20 06/03/20 Range/Units 13:19 14:17 16:09 RBC (4.30-5.90) m/uL Hgb (13.0-17.5) gm/dL Hct (39.0-53.0) % ABG pH (7.35-7.45) ABG HCO3 (21-25) mmol/L ABG Total CO2 (19-24) mmol/L ABG O2 Saturation (94-97) % Sodium (137-145) mmol/L Carbon Dioxide (22-30) mmol/L BUN (9-20) mg/dL Creatinine (0.66-1.25) mg/dL Glucose (74-99) mg/dL POC Glucose (mg/dL) 107 H 125 H 113 H (75-99) mg/dL Calcium (8.4-10.2) mg/dL Microbiology - Last 24 Hours (Table) 06/02/20 08:40 Gram Stain - Preliminary Sputum Sputum Culture - Preliminary Gram Neg Bacilli
[2020-06-03 17:50] LABS: Glucose,Whole Blood 164 mg/dL (75-99)
[2020-06-03] MEDS: ASPIRIN 300 MG SUPP RECTAL SCH (17:55)
[2020-06-03 19:05] LABS: Glucose,Whole Blood 141 mg/dL (75-99)
[2020-06-03 19:52] LABS: Glucose,Whole Blood 132 mg/dL (75-99)
[2020-06-03] MEDS: SENNOSIDES-DOCUSATE SODIUM 1 EACH TAB PO SCH (20:11)
[2020-06-03 21:12] LABS: Glucose,Whole Blood 95 mg/dL (75-99)
[2020-06-03 22:10] LABS: Glucose,Whole Blood 73 mg/dL (75-99)
[2020-06-03 23:08] LABS: Glucose,Whole Blood 131 mg/dL (75-99)
[2020-06-04 00:06] LABS: Glucose,Whole Blood 133 mg/dL (75-99)
[2020-06-04] MEDS: METOPROLOL TARTRATE 5 MG/5 ML VIAL IVP SCH ×4 (00:30→18:07)
[2020-06-04 01:11] LABS: Glucose,Whole Blood 122 mg/dL (75-99)
--- NOTE | 2020-06-04 01:17 | P.PN ---
Subjective On-call hospitalist covering Dr. Tafoya will resume the care of the patient on 06/05 This is a pleasant 74 years old male with history of unstable angina and found to have severe three-vessel coronary artery disease, he underwent coronary artery bypass grafting on 05/22. Postoperatively he was extubated within 1-2 days and placed on 2 L/m oxygen via nasal cannula, patient was noted to be forgetful and difficult to be educated about his care. However on 05/26 became more agitated and hypoxic and he had to be reintubated again by Dr. Perdomo. looks like patient has difficulty to be weaned off the ventilating machine. CT of the brain showed no acute intracranial abnormality but there is mild to moderate diffuse cerebral atrophy. Eventually surgery team were consulted for PEG tube placement and tracheostomy which the patient has both of them now. Also patient has been followed by several consultants including surgery team, cardiology as well as pulmonary/critical care team, who remains on mechanical ventilation. He is hemodynamically stable and does not need any pressors.Chest x-ray showed low lung volume with cardiomegaly, with mild central vascular congestion is suspected and left greater than right bibasilar acute i nfiltrate and/or atelectasis. No significant change from prior chest x-ray Labs reviewed and looks stable. Sugar controlled or slightly elevated 06/02/2020 Patient is in the ICU, intubated and sedated and he has issue with his mentation whenever he comes off sedation, currently pulmonary/critical care tumor trying to wean him and slowly from sedation while monitoring his mentation closely. No significant change in labs and vitals. In the meantime patient remained on Levaquin, insulin drip, Seroquel is added. Also is on aspirin and Plavix and subcutaneous heparin for DVT prophylaxis. Chest x-ray showing similar changes on the slightly worsening. 06/03/2020 Patient today while he was undergoing sedation holiday he got agitated and he pulled out his PEG tube, Hearn catheter and IV line while he is in restraints Surgery team were called and they replace the PEG tube back but because of bleeding at the site the recommended to hold it until Friday. CBC and BMP are stable. He is a slightly bradycardic but blood pressure is stable. Glucose controlled Remains on aspirin and Plavix. He is on an insulin drip. Levaquin antibiotic. Ancef Seroquel twice a day. Review of systems: N/a Active Medications Generic Name Dose Route Start Last Admin Trade Name Freq PRN Reason Stop Dose Admin Acetaminophen 650 mg 05/23/20 08:27 05/27/20 16:56 Acetaminophen Tab 325 Mg Tab PO 650 mg Q4HR PRN Administration Fever and/ or Pain Albuterol/Ipratropium 3 ml 05/22/20 13:32 Ipratropium-Albuterol 3 Ml Neb INHALATION RT-Q2H PRN Shortness Of Breath Or Wheezing Albuterol/Ipratropium 3 ml 05/26/20 12:00 06/03/20 23:21 Ipratropium-Albuterol 3 Ml Neb INHALATION 3 ml RT-Q4H LIYA Administration Aspirin 300 mg 06/03/20 11:15 06/03/20 17:55 Aspirin 300 Mg Supp RECTAL 300 mg DAILY LIYA Administration Atorvastatin Calcium 40 mg 05/31/20 13:00 06/03/20 11:14 Atorvastatin 40 Mg Tab PO Not Given DAILY LIYA Benzocaine/Menthol 1 each 05/22/20 13:32 Benzocaine/Menthol Lozeng 1 Each Lozenge MUCOUS MEM Q2H PRN Sore Throat Bisacodyl 10 mg 06/04/20 09:00 Bisacodyl 10 Mg Supp RECTAL DAILY LIYA Chlorhexidine Gluconate 15 ml 05/25/20 22:30 06/03/20 22:52 Chlorhexidine Gluconate 15 Ml Cup MUCOUS MEM 15 ml BID LIYA Administration Clopidogrel Bisulfate 75 mg 05/31/20 13:00 06/03/20 11:14 Clopidogrel 75 Mg Tab PO Not Given DAILY LIYA Heparin Sodium (Porcine) 5,000 unit 05/22/20 21:00 06/03/20 22:52 Heparin Sodium,Porcine 5,000 Unit/Ml 1 Ml Vial SQ 5,000 unit Q8H LIYA Administration Insulin Human Regular 100 unit 101 mls @ 0 mls/hr 06/02/20 07:30 06/03/20 23:17 / Sodium Chloride IV 6.5 units/hr .Q0M LIYA 6.565 mls/hr Titration Protocol Per Protocol Dexmedetomidine HCl 400 mcg/ 100 mls @ 4.37 mls/hr 06/02/20 11:45 06/03/20 23:00 IV Solution IV 06/05/20 11:44 0.6 mcg/kg/hr .[id number] LIYA 13.11 mls/hr Titration Protocol 0.2 MCG/KG/HR Lactated Ringer's 1,000 mls @ 50 mls/hr 06/03/20 11:15 06/03/20 12:30 Lactated Ringers IV 50 mls/hr .Q20H LIYA Administration Levofloxacin 500 mg 05/31/20 13:00 06/03/20 11:14 Levofloxacin 500 Mg Tab PO Not Given DAILY LIYA Magnesium Hydroxide 2,400 mg 05/23/20 09:00 Magnesium Hydroxide 2,400 Mg/10 Ml Cup PO BID PRN Constipation Metoprolol Tartrate 5 mg 06/03/20 12:00 06/03/20 17:58 Metoprolol Tartrate 5 Mg/5 Ml Vial IVP Not Given Q6HR LIYA Miscellaneous Information 1 each 05/22/20 13:32 Potassium Replacement Protocol 1 Each Misc MISCELLANE DAILY PRN Per Protocol Protocol Miscellaneous Information 1 each 05/22/20 13:32 Magnesium Replacement Protocol 1 Each Misc MISCELLANE DAILY PRN Per Protocol Protocol Miscellaneous Information 1 each 05/22/20 13:32 Phosphorus Replacement Protoco 1 Each Misc MISCELLANE DAILY PRN Per Protocol Protocol Ondansetron HCl 4 mg 05/22/20 13:32 05/22/20 21:52 Ondansetron 4 Mg/2 Ml Vial IVP 4 mg Q6HR PRN Administration Nausea And Vomiting Pantoprazole Sodium 40 mg 05/24/20 09:00 06/03/20 11:07 Pantoprazole 40 Mg/10 Ml Vial IVP 40 mg DAILY LIYA Administration Polyethylene Glycol 17 gm 05/31/20 13:00 06/03/20 11:14 Polyethylene Glycol 3350 17 Gm Powd.Pack PO Not Given DAILY LIYA Quetiapine Fumarate 100 mg 06/02/20 21:00 06/03/20 20:11 Quetiapine 100 Mg Tab PO Not Given BID LIYA Senna/Docusate Sodium 2 each 05/23/20 21:00 06/03/20 20:11 Sennosides-Docusate Sodium 1 Each Tab PO Not Given HS LIYA Sodium Chloride 10 ml 05/22/20 21:00 06/03/20 22:52 Sodium Chloride 0.9% Flush 10 Ml Syringe IV 10 ml BID LIYA Administration Objective - Vital Signs Vital signs: Vital Signs Temp 97.7 F 06/03/20 08:00 Pulse 68 06/03/20 15:51 Resp 20 06/03/20 14:00 BP 106/55 06/03/20 14:00 Pulse Ox 100 06/03/20 14:00 Intake & Output 06/02/20 06/03/20 06/03/20 18:59 06:59 18:59 Intake Total 939.876 5348.883 624.637 Output Total 395 540 145 Balance 547.645 487.883 479.637 Weight 87.4 kg 86.9 kg Intake: IV 240 240 280 LR 240 240 280 Intake, IV Titration 82.645 157.883 44.637 Amount Dexmedetomidine/0.9% NaCl 81.501 2.622 (Pmx) 400 mcg In Empty Bag 1 bag @ 0.2 MCG/KG/HR 4.37 mls/hr IV .[id number] LIYA Rx#:[id number] Dexmedetomidine/0.9% NaCl 0.145 (Pmx) 400 mcg In Empty Bag 1 bag @ Titrate IV . Q0M LIYA Rx#:[id number] Insulin Regular 100 unit 82.500 76.382 42.015 In Sodium Chloride 0.9% 100 ml @ Per Protocol IV .Q0M LIYA Rx#:[id number] Tube Feeding 560 540 270 Other 60 90 30 Output: Urine 395 540 145 Other: Voiding Method Indwelling Catheter Indwelling Catheter ABP, PAP, CO, CI - Last Documented Arterial Blood Pressure 103/42 Pulmonary Artery Pressure 32/15 Cardiac Output 4.4 Cardiac Index 2.2 - Exam -GENERAL: The patient is sedated and on mechanical ventilation, status post tracheostomy HEENT: Pupils are round and equally reacting to light. EOMI. No scleral icterus. No conjunctival pallor. Normocephalic, atraumatic. No pharyngeal erythema. No thyromegaly. CARDIOVASCULAR: S1 and S2 present. No murmurs, rubs, or gallops. PULMONARY: Chest is clear to auscultation, no wheezing or crackles. -ABDOMEN: Soft, nontender, nondistended, normoactive bowel sounds. No palpable organomegaly. PEG tube is in place MUSCULOSKELETAL: No joint swelling or deformity. EXTREMITIES: No cyanosis, clubbing, or pedal edema. NEUROLOGICAL: Gross neurological examination did not reveal any focal deficits. SKIN: No rashes. no petechiae. - Labs CBC & Chem 7: 06/03/20 04:54 06/03/20 04:54 Labs: Abnormal Lab Results - Last 24 Hours (Table) 06/02/20 06/02/20 06/02/20 Range/Units 16:14 17:01 18:10 RBC (4.30-5.90) m/uL Hgb (13.0-17.5) gm/dL Hct (39.0-53.0) % ABG pH (7.35-7.45) ABG HCO3 (21-25) mmol/L ABG Total CO2 (19-24) mmol/L ABG O2 Saturation (94-97) % Sodium (137-145) mmol/L Carbon Dioxide (22-30) mmol/L BUN (9-20) mg/dL Creatinine (0.66-1.25) mg/dL Glucose (74-99) mg/dL POC Glucose (mg/dL) 194 H 202 H 192 H (75-99) mg/dL Calcium (8.4-10.2) mg/dL 06/02/20 06/02/20 06/02/20 Range/Units 18:58 20:00 21:07 RBC (4.30-5.90) m/uL Hgb (13.0-17.5) gm/dL Hct (39.0-53.0) % ABG pH (7.35-7.45) ABG HCO3 (21-25) mmol/L ABG Total CO2 (19-24) mmol/L ABG O2 Saturation (94-97) % Sodium (137-145) mmol/L Carbon Dioxide (22-30) mmol/L BUN (9-20) mg/dL Creatinine (0.66-1.25) mg/dL Glucose (74-99) mg/dL POC Glucose (mg/dL) 184 H 142 H 124 H (75-99) mg/dL Calcium (8.4-10.2) mg/dL 06/02/20 06/02/20 06/03/20 Range/Units 22:09 23:06 00:22 RBC (4.30-5.90) m/uL Hgb (13.0-17.5) gm/dL Hct (39.0-53.0) % ABG pH (7.35-7.45) ABG HCO3 (21-25) mmol/L ABG Total CO2 (19-24) mmol/L ABG O2 Saturation (94-97) % Sodium (137-145) mmol/L Carbon Dioxide (22-30) mmol/L BUN (9-20) mg/dL Creatinine (0.66-1.25) mg/dL Glucose (74-99) mg/dL POC Glucose (mg/dL) 106 H 148 H 138 H (75-99) mg/dL Calcium (8.4-10.2) mg/dL 06/03/20 06/03/20 06/03/20 Range/Units 01:14 01:48 02:54 RBC (4.30-5.90) m/uL Hgb (13.0-17.5) gm/dL Hct (39.0-53.0) % ABG pH (7.35-7.45) ABG HCO3 (21-25) mmol/L ABG Total CO2 (19-24) mmol/L ABG O2 Saturation (94-97) % Sodium (137-145) mmol/L Carbon Dioxide (22-30) mmol/L BUN (9-20) mg/dL Creatinine (0.66-1.25) mg/dL Glucose (74-99) mg/dL POC Glucose (mg/dL) 108 H 105 H 140 H (75-99) mg/dL Calcium (8.4-10.2) mg/dL 06/03/20 06/03/20 06/03/20 Range/Units 03:58 04:54 04:54 RBC 2.78 L (4.30-5.90) m/uL Hgb 8.2 L (13.0-17.5) gm/dL Hct 25.2 L (39.0-53.0) % ABG pH (7.35-7.45) ABG HCO3 (21-25) mmol/L ABG Total CO2 (19-24) mmol/L ABG O2 Saturation (94-97) % Sodium 135 L (137-145) mmol/L Carbon Dioxide 33 H (22-30) mmol/L BUN 27 H (9-20) mg/dL Creatinine 0.64 L (0.66-1.25) mg/dL Glucose 155 H (74-99) mg/dL POC Glucose (mg/dL) 177 H (75-99) mg/dL Calcium 8.1 L (8.4-10.2) mg/dL 06/03/20 06/03/20 06/03/20 Range/Units 05:05 05:16 06:06 RBC (4.30-5.90) m/uL Hgb (13.0-17.5) gm/dL Hct (39.0-53.0) % ABG pH 7.49 H (7.35-7.45) ABG HCO3 33 H (21-25) mmol/L ABG Total CO2 34 H (19-24) mmol/L ABG O2 Saturation 99.1 H (94-97) % Sodium (137-145) mmol/L Carbon Dioxide (22-30) mmol/L BUN (9-20) mg/dL Creatinine (0.66-1.25) mg/dL Glucose (74-99) mg/dL POC Glucose (mg/dL) 186 H 157 H (75-99) mg/dL Calcium (8.4-10.2) mg/dL 06/03/20 06/03/20 06/03/20 Range/Units 07:05 08:30 09:42 RBC (4.30-5.90) m/uL Hgb (13.0-17.5) gm/dL Hct (39.0-53.0) % ABG pH (7.35-7.45) ABG HCO3 (21-25) mmol/L ABG Total CO2 (19-24) mmol/L ABG O2 Saturation (94-97) % Sodium (137-145) mmol/L Carbon Dioxide (22-30) mmol/L BUN (9-20) mg/dL Creatinine (0.66-1.25) mg/dL Glucose (74-99) mg/dL POC Glucose (mg/dL) 134 H 115 H 124 H (75-99) mg/dL Calcium (8.4-10.2) mg/dL 06/03/20 06/03/20 06/03/20 Range/Units 11:17 11:25 12:28 RBC (4.30-5.90) m/uL Hgb (13.0-17.5) gm/dL Hct (39.0-53.0) % ABG pH (7.35-7.45) ABG HCO3 (21-25) mmol/L ABG Total CO2 (19-24) mmol/L ABG O2 Saturation (94-97) % Sodium (137-145) mmol/L Carbon Dioxide (22-30) mmol/L BUN (9-20) mg/dL Creatinine (0.66-1.25) mg/dL Glucose (74-99) mg/dL POC Glucose (mg/dL) 125 H 125 H 106 H (75-99) mg/dL Calcium (8.4-10.2) mg/dL 06/03/20 06/03/20 Range/Units 13:19 14:17 RBC (4.30-5.90) m/uL Hgb (13.0-17.5) gm/dL Hct (39.0-53.0) % ABG pH (7.35-7.45) ABG HCO3 (21-25) mmol/L ABG Total CO2 (19-24) mmol/L ABG O2 Saturation (94-97) % Sodium (137-145) mmol/L Carbon Dioxide (22-30) mmol/L BUN (9-20) mg/dL Creatinine (0.66-1.25) mg/dL Glucose (74-99) mg/dL POC Glucose (mg/dL) 107 H 125 H (75-99) mg/dL Calcium (8.4-10.2) mg/dL Microbiology - Last 24 Hours (Table) 06/02/20 08:40 Gram Stain - Preliminary Sputum Sputum Culture - Preliminary Gram Neg Bacilli Assessment and Plan Assessment: Triple-vessel coronary artery disease status post bypass surgery on 05/22 Acute hypoxic respiratory failure on mechanical ventilation. Status post tracheostomy and PEG tube replacement Agitation with altered mental status, currently sedated. Difficult coming off sedation Possible elements of pulmonary infiltrate or pneumonia. History of CVA Ischemic cardiomyopathy with ejection fraction 45-50% Plan: This is a 74 years old male who presents with H and respiratory failure with difficulty, no ventilation. Patient is followed by many consultants including pulmonary/critical care team, head scorer, surgery and the primary cardiothoracic team. Continue with aspirin, Plavix and Levaquin. Labs and medication were reviewed.. Continue same treatment. Continue with symptomatic treatment. Resume home medication. Monitor lytes and vitals. DVT and GI prophylaxis. Further recommendations as per clinical course of the patient DVT prophylaxis: Subcutaneous heparin GI Prophylaxis: Ppi Prognosis is guarded
[2020-06-04 02:40] LABS: Glucose,Whole Blood 82 mg/dL (75-99)
[2020-06-04] MEDS: IPRATROPIUM-ALBUTEROL 3 ML NEB INHALATION SCH ×6 (03:05→22:55)
[2020-06-04 04:00] LABS: Glucose,Whole Blood 111 mg/dL (75-99)
[2020-06-04 04:58] LABS: HCT 25.8 % (39.0-53.0); HGB 8.4 gm/dL (13.0-17.5); Hypochromasia Slight; MCH 29.7 pg (25.0-35.0); MCHC 32.6 g/dL (31.0-37.0); MCV 91.2 fL (80.0-100.0); Mean Platelet Volume 8.6; Platelet Count 476 k/uL (150-450); RBC 2.83 m/uL (4.30-5.90); RDW 13.6 % (11.5-15.5); WBC 10.7 k/uL (3.8-10.6)
[2020-06-04 05:03] LABS: ABG Base Excess 6.4 mmol/L; ABG HCO3 30 mmol/L (21-25); ABG Oxygen Saturation 98.8 % (94-97); ABG PCO2 42 mmHg (35-45); ABG PH 7.47 (7.35-7.45); ABG PO2 98 mmHg (83-108); ABG TCO2 31 mmol/L (19-24); Allen Test Performed? Yes
[2020-06-04 05:07] LABS: Glucose,Whole Blood 111 mg/dL (75-99)
[2020-06-04 05:11] LABS: African American GFR (CKD) >90 (>60 ml/min/1.73 sqM); Anion Gap 3 mmol/L; Blood Urea Nitrogen 21 mg/dL (9-20); Calcium 8.4 mg/dL (8.4-10.2); Carbon Dioxide 32 mmol/L (22-30); Chloride 101 mmol/L (98-107); Glucose 85 mg/dL (74-99); Non-African American GFR(CKD) >90 (>60 ml/min/1.73 sqM); Potassium 4.4 mmol/L (3.5-5.1); Sodium 136 mmol/L (137-145)
[2020-06-04] MEDS: HEPARIN SODIUM,PORCINE 5,000 UNIT/ML 1 ML VIAL SQ SCH ×3 (05:23→20:07)
[2020-06-04 05:50] LABS: Glucose,Whole Blood 138 mg/dL (75-99)
--- NOTE | 2020-06-04 06:50 | P.PN ---
Subjective Progress Note Date: 06/04/20 74-year-old male patient with post four-vessel bypass surgery. The patient is postop day #7 the patient underwent DOOLEY to LAD and saphenous vein graft to obtuse marginal and PDA. The patient has cardiomyopathy with ejection fraction of 45%. The patient has insulin-dependent diabetes mellitus and the patient has a previous history of CVA including with a short-term memory loss and impulsivity. Postextubation and currently the patient remains on a mechanical ventilator. His cardiac rhythm is sinus. He is hemodynamically stable. The patient remains on assist control mode of ventilation at the rate of 16 with a tidal volume of 450 and FiO2 of 25% and a PEEP of 5. He is post exhibition insertion and the patient will be started on feeding for nutritional support. Sedation is with propofol at a rate of 30mcg per KG per minute and insulin drip is running 4U units an hour for blood sugar control. Chest x-ray showing some retrocardiac infiltration and left basilar airspace disease. The patient is currently on Levaquin as an empiric antibiotic coverage. The patient is on DuoNeb nebulized treatments around the clock, aspirin and Plavix and the patient is also on metoprolol 25 mg by mouth twice a day. The sputum culture has shown no growth. Urine cultures no growth. A CAT scan of the brain that showed no evidence of any acute intracranial hemorrhage or midline shift. This is uncha nged compared to previous CT if the brain of November 2019. The blood gases from today showed a pH of 7.5 with a pCO2 of 40 and pO2 of 79. Peak airway pressures nonelevated at 22. X-ray showing cardiomegaly. If she was in a good location. The patient has pulmonary vessel congestion. There is also bowel loops on the right hemidiaphragm. There is also volume loss and the patient is smaller lung volumes. The patient was given a dose of Lasix 40 mg of push yesterday. His net fluid balance for yesterday is negative 255 mL. urine output is in order of 30-60 mL an hour. Patient is also on Seroquel 50 mg by mouth twice a day. He is on Levemir insulin was introduced for blood sugar control. on 05/30/2020, the patient remains sedated with propofol. He failed a sedation holiday yesterday and the same will be done today. He is currently off of a 4- 30 g per KG per minute and this is being gradually weaned off. I was told that his mental status was not appropriate even preoperatively and discomfort worse postop. In any rate, we are going to give the patient later sedation holiday. The patient is an assist-control mode at the rate of 16 with tidal volume of 450 FiO2 of 25% with a PEEP of 5. Chest x-ray showing pulmonary vascular congestion, small bilateral pleural effusions and cardiomegaly. ET tube is in a good location. No significant orotracheal secretions. Sternal wound is not draining at this point in time and it's dry and clean. His cardiac rhythm is sinus. He is on no pressors. He is receiving enteral feeding for nutritional support. They the patient is on Levemir at 25 units and the patient is also receiving psychiatric coverage. Blood sugars has been in the low 200s. Urine output is adequate for now. No fever. No other active issues for now. He remains on Levaquin. He was given a dose of Lasix yesterday 40 mg IV push and he is in a 0 fluid balance over the past 24 hours. Active site is clean and intact. No abdominal distention. He is postop day #8. He has also an umbilical hernia which is easily reducible.the blood gas from today showed a pH of 7.5 with a pCO2 of 41 and a pO2 of 90 and this was done and FiO2 of 25%. Airway pressures are not elevated. on 05/31/2020, the patient remains intubated. He had a failed extubation yeste rday. Postextubation, he became quite restless and agitated and he had also questioning the stridorous breathing as the patient was having inspiratory and expiratory harsh noise coming from his neck area. Obviously within 10 minutes, decompensated, became hypoxic and hypotensive. I had to be intubated and immediately on an emergency basis. He currently is intubated with a #8 orotracheal tube. He is on a mechanical ventilator. He is an FiO2 of 40% with a PEEP of 5 and tidal volume 450 with a rate of 16. Chest x-ray showing small bilateral pleural effusions. ET tube is in a good location. He is receiving daily Lasix doses. He is pH was at 7.5757 with a pCO2 of 35 and pO2 138. His serum bicarb is at 33. As such she has a combination of respiratory and metabolic alkalosis. He is hemodynamically stable. He is in a normal sinus rhythm. He is not requiring any pressors. Obviously mentation is an ongoing issue with this patient. The plan for now is to proceed with a tracheostomy tube insertion. He already had his PEG tube and an acute visit currently on hold. Otherwise no other significant events overnight. He is producing adequate amount of urine output. Sternal stable clean and intact. nnow on 06/01/2020 commands seeing the patient for a follow-up. The patient is post tracheostomy tube insertion. This morning is calm and comfortable on propofol which is running at 30 mics.this will hopefully gradually weaned off today. Meanwhile, the patient is hemodynamically stable. This morning he is an assist-control mode of ventilation. He is an FiO2 of 40% with tidal volume of 450 and a PEEP of 5 with a respiratory rate of 16. Chest x-ray shows typical postsurgical changes in the tracheostomy is in good location. No acute pulmonary infiltrates.the patient's blood gas showed a pH of 7.49 with a pCO2 of 44 and pO2 of 92. Hemoglobin stable at 9.4. The patient is afebrile. Sternal wound is dry clean and intact. He is receiving bolus feeding. Insulin drip was discontinued as the patient's blood sugar has been under much better control and tighter control for now.no other significant events otherwise. The patient is producing adequate amount of urine output. His net fluid balance over the past 24 hours has been +342 mL. On today's evaluation of 06/02/2020, the patient is on Precedex running at 0.4 mcg/kg/h. The patient is arousable. He is following some simple commands. He is also on Seroquel 75 mg by mouth twice a day. No agitation. No restlessness. Hemodynamically stable. He is on no pressors. He is receiving intermittent enteral feeding for nutritional support. Sternum is stable clean and intact. No drainage from the sternal wound. Active site is also clearing. He remains on a mechanical ventilator. Earlier this morning he was undergoing and psychosis control mode at a tidal volume of 400 with a rate of 16 and FiO2 of 40% with a PEEP of 5. Chest x-ray shows atelectatic changes small effusion the lung bases bilaterally. Tracheostomy tube is in a good location the patient has a #8 Shiley. The blood gas showed a pH of 7.49 with a pCO2 of 43 and pO2 of 87. I checked the patient's weaning parameters. The patient is still generating a lower tidal volumes and this is partly from the fact that the patient is still sedated. Blood sugar is still elevated and the patient will need an insulin drip for blood sugar control. On today's evaluation of 06/03/2020, the patient is on Precedex at 0.2 mcg/kg/h. He is arousable. He is following some simple commands. I switched to pressure support mode of ventilation. On a pressure support of 7 and a PEEP of 5, tidal volumes are quite low in the 300s range. Based on that, I switched this patient's SIMV of his from today includes a pH of 7.49 with a pCO2 of 44 and pO2 of 11. The chest x-ray from today shows postsurgical changes. Tracheostomy tube is in a good location. Atelectatic changes in the right lung base. Small effusions. The fluid balance over the past 24 hours has been in the order of +1 L. The patient is afebrile. The patient has a #8 [address] tracheostomy tube in place. No other significant events. Blood sugars tightly controlled on an insulin drip I 9 units an hour drip. He is still on Seroquel 100 mg by mouth twice a day. The plan today is gradually wean off the Precedex and hopefully remove it completely. X-ray on 06/04/2020 and send patient for a follow-up. Events from yesterday were noted. As the patient was being weaned off the Precedex. He became quite restless and agitated. Pupils on his IV lines, PAC tube and Hearn catheter. As such, general surgery was consulted again and the patient has immediately a bed side. He insertion of the catheter is out. He is back on Precedex at 0 point. He remained on assist control mode of ventilation. He is an assist-control mode at the rate of 60 with a total volume of 400 and FiO2 of 40% with a PEEP of 5. Blood gases showed a pH of 7.47 with a pCO2 of 42 and pO2 of 98.. Chest x-ray from today shows adequate healing of the ET tube. The chest x-ray shows no acu te abnormalities. There is some bowel loops under the right hemidiaphragm. Tracheostomy tube is in a good location. In terms of blood work, the patient was sent for the time 0.7 with hemoglobin of 8.4. Renal function is within normal limits. In terms of neurologic functions, the patient is moving all 4 extremities. He is quite restless given on Precedex. He is taking Serevent 100 mg by mouth twice a day. He continues a course of Levaquin for a potential surgical wound drainage. He is on accommodation of aspirin and Plavix. Is also on metoprolol at a dose of 5 mg IV every 6 hours as the patient does not have any oral intake at this point in time Objective - Vital Signs Vital signs: Vital Signs Temp 98.0 F 06/04/20 04:00 Pulse 63 06/04/20 05:00 Resp 22 06/04/20 05:00 BP 115/60 06/04/20 05:00 Pulse Ox 99 06/04/20 05:00 Intake & Output 06/03/20 06/03/20 06/04/20 06:59 18:59 06:59 Intake Total 1027.883 920.621 695.634 Output Total 540 145 Balance 487.883 775.621 695.634 Weight 86.9 kg 87.412 kg Intake: IV 240 480 550 LR 240 480 550 Intake, IV Titration 157.883 140.621 145.634 Amount Dexmedetomidine/0.9% NaCl 81.501 27.713 92.862 (Pmx) 400 mcg In Empty Bag 1 bag @ 0.2 MCG/KG/HR 4.37 mls/hr IV .[id number] [facility] Rx#:[id number] Insulin Regular 100 unit 76.382 55.902 52.772 In Sodium Chloride 0.9% 100 ml @ Per Protocol IV .Q0M [facility] Rx#:[id number] propofoL 1,000 mg In 57.006 Empty Bag 1 bag @ Titrate IV .Q0M [facility] Rx#: [id number] Tube Feeding 540 270 Other 90 30 Output: Urine 540 145 Other: Voiding Method Indwelling Catheter Indwelling Catheter Urinal Diaper Incontinent # Voids 1 ABP, PAP, CO, CI - Last Documented Arterial Blood Pressure 103/42 Pulmonary Artery Pressure 32/15 Cardiac Output 4.4 Cardiac Index 2.2 - Exam GENERAL EXAM: the patient has a tracheostomy tube in place.asynchronous with a mechanical ventilator. Is calm and comfortable.. Is on board for sedation. He is responsive. He grimaces to painful stimulation. His mentation waxes and wanes. At times she follows commands. Other times he does not. He is quite restless and he moves around in bed constantly HEAD: Normocephalic. EYES: Sluggish reaction of pupils, equal size. NOSE: Oral endotracheal and gastric tube secured in place. Clear with pink turbinates. THROAT: No erythema or exudates., post insertion of a tracheostomy tube, #8 Shiley. NECK: No masses, no JVD. CHEST: Sternal dressing dry and intact. Serous drainage noted from incision. No chest wall deformity.no active drainage from the chest wall wound. No surrounding cellulitis at this point in time. LUNGS: Equal air entry with crackles in the bilateral posterior bases.. CVS: S1 and S2 normal with no audible murmur, regular rhythm. ABDOMEN: No hepatosplenomegaly, normal bowel sounds, no guarding or rigidity.the patient has an umbilical hernia. The patient also has a PEG tube in place. The patient has a anterior abdominal wall/umbilical hernia which is useful. No d irect tenderness. SPINE: No scoliosis or deformity SKIN: No rashes CENTRAL NERVOUS SYSTEM: Tone is normal in all 4 extremities. EXTREMITIES: There is no peripheral edema. No clubbing, no cyanosis. P eripheral pulses are intact. - Labs CBC & Chem 7: 06/04/20 03:44 06/04/20 03:44 Labs: Abnormal Lab Results - Last 24 Hours (Table) 06/03/20 06/03/20 06/03/20 Range/Units 07:05 08:30 09:42 WBC (3.8-10.6) k/uL RBC (4.30-5.90) m/uL Hgb (13.0-17.5) gm/dL Hct (39.0-53.0) % Plt Count (150-450) k/uL ABG pH (7.35-7.45) ABG HCO3 (21-25) mmol/L ABG Total CO2 (19-24) mmol/L ABG O2 Saturation (94-97) % Sodium (137-145) mmol/L Carbon Dioxide (22-30) mmol/L BUN (9-20) mg/dL POC Glucose (mg/dL) 134 H 115 H 124 H (75-99) mg/dL 06/03/20 06/03/20 06/03/20 Range/Units 11:17 11:25 12:28 WBC (3.8-10.6) k/uL RBC (4.30-5.90) m/uL Hgb (13.0-17.5) gm/dL Hct (39.0-53.0) % Plt Count (150-450) k/uL ABG pH (7.35-7.45) ABG HCO3 (21-25) mmol/L ABG Total CO2 (19-24) mmol/L ABG O2 Saturation (94-97) % Sodium (137-145) mmol/L Carbon Dioxide (22-30) mmol/L BUN (9-20) mg/dL POC Glucose (mg/dL) 125 H 125 H 106 H (75-99) mg/dL 06/03/20 06/03/20 06/03/20 Range/Units 13:19 14:17 16:09 WBC (3.8-10.6) k/uL RBC (4.30-5.90) m/uL Hgb (13.0-17.5) gm/dL Hct (39.0-53.0) % Plt Count (150-450) k/uL ABG pH (7.35-7.45) ABG HCO3 (21-25) mmol/L ABG Total CO2 (19-24) mmol/L ABG O2 Saturation (94-97) % Sodium (137-145) mmol/L Carbon Dioxide (22-30) mmol/L BUN (9-20) mg/dL POC Glucose (mg/dL) 107 H 125 H 113 H (75-99) mg/dL 06/03/20 06/03/20 06/03/20 Range/Units 17:49 19:03 19:51 WBC (3.8-10.6) k/uL RBC (4.30-5.90) m/uL Hgb (13.0-17.5) gm/dL Hct (39.0-53.0) % Plt Count (150-450) k/uL ABG pH (7.35-7.45) ABG HCO3 (21-25) mmol/L ABG Total CO2 (19-24) mmol/L ABG O2 Saturation (94-97) % Sodium (137-145) mmol/L Carbon Dioxide (22-30) mmol/L BUN (9-20) mg/dL POC Glucose (mg/dL) 164 H 141 H 132 H (75-99) mg/dL 06/03/20 06/03/20 06/04/20 Range/Units 22:08 23:06 00:05 WBC (3.8-10.6) k/uL RBC (4.30-5.90) m/uL Hgb (13.0-17.5) gm/dL Hct (39.0-53.0) % Plt Count (150-450) k/uL ABG pH (7.35-7.45) ABG HCO3 (21-25) mmol/L ABG Total CO2 (19-24) mmol/L ABG O2 Saturation (94-97) % Sodium (137-145) mmol/L Carbon Dioxide (22-30) mmol/L BUN (9-20) mg/dL POC Glucose (mg/dL) 73 L 131 H 133 H (75-99) mg/dL 06/04/20 06/04/20 06/04/20 Range/Units 01:09 03:44 03:44 WBC 10.7 H (3.8-10.6) k/uL RBC 2.83 L (4.30-5.90) m/uL Hgb 8.4 L (13.0-17.5) gm/dL Hct 25.8 L (39.0-53.0) % Plt Count 476 H (150-450) k/uL ABG pH (7.35-7.45) ABG HCO3 (21-25) mmol/L ABG Total CO2 (19-24) mmol/L ABG O2 Saturation (94-97) % Sodium 136 L (137-145) mmol/L Carbon Dioxide 32 H (22-30) mmol/L BUN 21 H (9-20) mg/dL POC Glucose (mg/dL) 122 H (75-99) mg/dL 06/04/20 06/04/20 06/04/20 Range/Units 03:59 04:57 05:05 WBC (3.8-10.6) k/uL RBC (4.30-5.90) m/uL Hgb (13.0-17.5) gm/dL Hct (39.0-53.0) % Plt Count (150-450) k/uL ABG pH 7.47 H (7.35-7.45) ABG HCO3 30 H (21-25) mmol/L ABG Total CO2 31 H (19-24) mmol/L ABG O2 Saturation 98.8 H (94-97) % Sodium (137-145) mmol/L Carbon Dioxide (22-30) mmol/L BUN (9-20) mg/dL POC Glucose (mg/dL) 111 H 111 H (75-99) mg/dL 06/04/20 Range/Units 05:48 WBC (3.8-10.6) k/uL RBC (4.30-5.90) m/uL Hgb (13.0-17.5) gm/dL Hct (39.0-53.0) % Plt Count (150-450) k/uL ABG pH (7.35-7.45) ABG HCO3 (21-25) mmol/L ABG Total CO2 (19-24) mmol/L ABG O2 Saturation (94-97) % Sodium (137-145) mmol/L Carbon Dioxide (22-30) mmol/L BUN (9-20) mg/dL POC Glucose (mg/dL) 138 H (75-99) mg/dL Microbiology - Last 24 Hours (Table) 06/02/20 08:40 Gram Stain - Preliminary Sputum Sputum Culture - Preliminary Gram Neg Bacilli Assessment and Plan Plan: 1 Coronary artery disease status post three-vessel coronary artery bypass grafting. Postoperative day #13. The patient should be able to wean easily off the mechanical ventilator. His issue is restlessness, agitation and altered mentation. There is an ongoing problem for the past surgery 1212 basis the patient had his surgery. Apparently some of his problems were prior to his surgery. He is on Seroquel. He is on Precedex. We'll continue our efforts to wean him off the Precedex. We have to be careful as the patient is at high risk of falling off his catheters and tubes just like what happened yesterday. 2 Acute hypoxemic respiratory failure requiring reintubation and placed back on the mechanical ventilator on 05/25/2020, unexpected , currently has a tracheostomy tube in place #8 Shiley. 3 Ischemic cardiomyopathy with ejection fraction 45-50% 4 Hyperlipidemia 5 Diabetes mellitus, currently off insulin for blood sugar control. 6 Chronic bronchial asthma 7 History of chronic tobacco dependence 8 Recent CVA in November 2019 with ongoing altered mental status 9 Hypertension, history of 10 insertion of a PEG tube for enteral feeding 11 questionable sternal wound infection as the patient has some drainage, the drainage is serous at this point in time. plan Keep Precedex and Seroquel. We'll discuss the case again with urology and also may require a psychiatric evaluation. On today's evaluation, I suggest the addition of Klonopin 1 mg now and probably twice a day and assess his response gradually wean off the Precedex. Hold enteral feeding for nutritional support facility was obtained from general surgery as the patient has a new infection in place insulin drip for blood sugar control Continue ventilator support May discontinue Levaquin and this will be discussed with the surgical team. The patient assist-control mode of ventilation. No ventilator changes will be done today. Blood gases was noted. Chest x-ray was noted. continue supportive care CC evaluation more than 30 minutes.
[2020-06-04] MEDS: DEXMEDETOMIDINE/0.9% NACL(PMX) 400 MCG in EMPTY BAG 1 BAG IV SCH (07:00)
[2020-06-04] MEDS ORDERED: LORazepam 2 MG/ML INJ IV STA (07:03)
[2020-06-04 07:27] LABS: Glucose,Whole Blood 153 mg/dL (75-99)
[2020-06-04] MEDS: LACTATED RINGERS 1,000 ML IV SCH (07:36)
[2020-06-04 08:09] LABS: Glucose,Whole Blood 143 mg/dL (75-99)
--- NOTE | 2020-06-04 08:14 | XR ---
EXAMINATION TYPE: XR chest 1V portable DATE OF EXAM: 06/04/2020 COMPARISON: 06/03/2020 INDICATION: Post cardiac surgery TECHNIQUE: Single frontal view of the chest is obtained. FINDINGS: The heart size is enlarged. The pulmonary vasculature is normal. For cardiac infiltrate is present. There is silhouetting left diaphragm. Small right pleural effusion may be present. Tracheostomy tube is in the midline IMPRESSION: 1. Retrocardiac infiltrate. Small bilateral pleural effusions may be present.
[2020-06-04] MEDS: ATORVASTATIN 40 MG TAB PO SCH (08:55)
[2020-06-04 09:14] LABS: Glucose,Whole Blood 122 mg/dL (75-99)
[2020-06-04] MEDS: CHLORHEXIDINE GLUCONATE 15 ML CUP MUCOUS MEM SCH ×2 (09:15→20:07)
[2020-06-04] MEDS: ASPIRIN 300 MG SUPP RECTAL SCH (09:15)
[2020-06-04] MEDS: CLOPIDOGREL 75 MG TAB PO SCH (09:15)
[2020-06-04] MEDS: clonazePAM 1 MG TAB PO SCH ×2 (09:15→19:54)
[2020-06-04] MEDS: bisacodyL 10 MG SUPP RECTAL SCH (09:15)
[2020-06-04] MEDS: QUEtiapine 100 MG TAB PO SCH ×2 (09:15→19:50)
[2020-06-04] MEDS: PANTOPRAZOLE 40 MG/10 ML VIAL IVP SCH (09:15)
[2020-06-04] MEDS: polyethylene glycoL 3350 17 GM POWD.PACK PO SCH (09:15)
[2020-06-04 10:15] LABS: Glucose,Whole Blood 125 mg/dL (75-99)
[2020-06-04] MEDS: INSULIN REGULAR 100 UNIT in SODIUM CHLORIDE 0.9% 100 ML IV SCH ×2 (10:15→14:08)
[2020-06-04 11:12] LABS: Glucose,Whole Blood 109 mg/dL (75-99)
--- NOTE | 2020-06-04 11:14 | P.PN ---
Subjective Progress Note Date: 06/04/20 Principal diagnosis: Unstable angina, severe calcific 3 vessel coronary artery disease. Previous medical history of recent stroke in November 2019 with continued short-term memory loss and impulsivity, cardiomyopathy with EF 45-50%, hypertension, hyperlipidemia, insulin-dependent diabetes with preoperative hemoglobin A1c 8%, asthma, previous tobacco dependence with preoperative FEV1 75% of predicted, and family history of premature coronary artery disease with father diagnosed less than 60 years old. POD #13 coronary artery bypass grafting 3 with the left internal mammary artery to the left anterior descending artery, reverse saphenous vein graft off the aorta to the first obtuse marginal artery and the posterior descending artery with endoscopic vein harvesting of the left lower extremity greater saphenous vein, clip ligation of the left atrial appendage with a 35 mm AtriClip and intraoperative transesophageal echocardiogram. Postoperative acute blood loss anemia and thrombocytopenia, expected outcomes given hemodilution and cardiopulmonary bypass pump Acute hypoxic respiratory failure requiring re-intubation, unexpected, likely from inability to clear secretions, prolonged mechanical ventilation POD #7 PEG tube placement POD #4 Tracheostomy placement The patient is laying in the ICU on mechanical ventilation, stable with minimal sedation. Remains in normal sinus rhythm, hemodynamically stable on no pressors. Does open his eyes, follows simple commands. Remains restrained as he is impulsive and does attempt to pull at his trach and PEG. Pulled his PEG almost completely out yesterday afternoon, had to be reinserted at bedside, per Dr. Zamora patient is to receive nothing by PEG until Friday, medications were switched to IV. Objective - Vital Signs Vital signs: Vital Signs Temp 98.9 F 06/04/20 08:00 Pulse 60 06/04/20 10:55 Resp 16 06/04/20 10:00 BP 107/55 06/04/20 10:00 Pulse Ox 99 06/04/20 10:00 Intake & Output 06/03/20 06/04/20 06/04/20 18:59 06:59 18:59 Intake Total 920.621 763.114 240.462 Output Total 145 Balance 775.621 763.114 240.462 Weight 87.412 kg Intake: IV 480 600 200 LR 480 600 200 Intake, IV Titration 140.621 163.114 40.462 Amount Dexmedetomidine/0.9% NaCl 27.713 110.342 26.22 (Pmx) 400 mcg In Empty Bag 1 bag @ 0.2 MCG/KG/HR 4.37 mls/hr IV .[id number] [facility] Rx#:[id number] Insulin Regular 100 unit 55.902 52.772 14.242 In Sodium Chloride 0.9% 100 ml @ Per Protocol IV .Q0M [facility] Rx#:[id number] propofoL 1,000 mg In 57.006 Empty Bag 1 bag @ Titrate IV .Q0M [facility] Rx#: [id number] Tube Feeding 270 Other 30 Output: Urine 145 Other: Voiding Method Indwelling Catheter Urinal Urinal Diaper Diaper Incontinent Incontinent # Voids 1 ABP, PAP, CO, CI - Last Documented Arterial Blood Pressure 103/42 Pulmonary Artery Pressure 32/15 Cardiac Output 4.4 Cardiac Index 2.2 - Constitutional Constitutional Comment(s): currently calm, does get fidgety and attempts to pull at lines and tubes, remains restrained for this reason, patient has short term memory loss and impulsivity since his stroke General appearance: Present: no acute distress - Respiratory Details: Lungs sounds diminished bilaterally. Respirations even, nonlabored on mechanical ventilation. Current vent settings FiO2 40%, TV 400, RR 16, PEEP 5. ABGs this AM on those settings 7.47/42/98/30/98%/6.4 on those settings. 8.0 Shiley tracheostomy present - Cardiovascular Details: S1, S2 present. Regular rate and rhythm, sinus rhythm on telemetry with heart rate in the 60s. Sternum stable. Palpable peripheral pulses bilaterally. No edema present. Heart hugger in place, antiembolism stockings, SCDs present. - Gastrointestinal Gastrointestinal Comment(s): Abdomen soft, nontender, nondistended. Active bowel sounds present 4 quadrants. PEG tube in place, nothing down PEG until Friday. Last BM 06/01/20 per nursing - Genitourinary Genitourinary Comment(s): Hearn discontinued, patient has been incontinent of urine - Integumentary Integumentary Comment(s): Skin is warm and dry. Anterior chest incision well approximated. Left lower extremity EVH site well approximated without redness or drainage. PEG tube incision without redness. Trach incision with small amount serous drainage - Neurologic Neurologic Comment(s): does open eyes and moves extremities, occasionally to command - Allied health notes Allied health notes reviewed: nursing - Labs CBC & Chem 7: 06/04/20 03:44 06/04/20 03:44 Labs: Abnormal Lab Results - Last 24 Hours (Table) 06/03/20 06/03/20 06/03/20 Range/Units 11:17 11:25 12:28 WBC (3.8-10.6) k/uL RBC (4.30-5.90) m/uL Hgb (13.0-17.5) gm/dL Hct (39.0-53.0) % Plt Count (150-450) k/uL ABG pH (7.35-7.45) ABG HCO3 (21-25) mmol/L ABG Total CO2 (19-24) mmol/L ABG O2 Saturation (94-97) % Sodium (137-145) mmol/L Carbon Dioxide (22-30) mmol/L BUN (9-20) mg/dL POC Glucose (mg/dL) 125 H 125 H 106 H (75-99) mg/dL 06/03/20 06/03/20 06/03/20 Range/Units 13:19 14:17 16:09 WBC (3.8-10.6) k/uL RBC (4.30-5.90) m/uL Hgb (13.0-17.5) gm/dL Hct (39.0-53.0) % Plt Count (150-450) k/uL ABG pH (7.35-7.45) ABG HCO3 (21-25) mmol/L ABG Total CO2 (19-24) mmol/L ABG O2 Saturation (94-97) % Sodium (137-145) mmol/L Carbon Dioxide (22-30) mmol/L BUN (9-20) mg/dL POC Glucose (mg/dL) 107 H 125 H 113 H (75-99) mg/dL 06/03/20 06/03/20 06/03/20 Range/Units 17:49 19:03 19:51 WBC (3.8-10.6) k/uL RBC (4.30-5.90) m/uL Hgb (13.0-17.5) gm/dL Hct (39.0-53.0) % Plt Count (150-450) k/uL ABG pH (7.35-7.45) ABG HCO3 (21-25) mmol/L ABG Total CO2 (19-24) mmol/L ABG O2 Saturation (94-97) % Sodium (137-145) mmol/L Carbon Dioxide (22-30) mmol/L BUN (9-20) mg/dL POC Glucose (mg/dL) 164 H 141 H 132 H (75-99) mg/dL 06/03/20 06/03/20 06/04/20 Range/Units 22:08 23:06 00:05 WBC (3.8-10.6) k/uL RBC (4.30-5.90) m/uL Hgb (13.0-17.5) gm/dL Hct (39.0-53.0) % Plt Count (150-450) k/uL ABG pH (7.35-7.45) ABG HCO3 (21-25) mmol/L ABG Total CO2 (19-24) mmol/L ABG O2 Saturation (94-97) % Sodium (137-145) mmol/L Carbon Dioxide (22-30) mmol/L BUN (9-20) mg/dL POC Glucose (mg/dL) 73 L 131 H 133 H (75-99) mg/dL 06/04/20 06/04/20 06/04/20 Range/Units 01:09 03:44 03:44 WBC 10.7 H (3.8-10.6) k/uL RBC 2.83 L (4.30-5.90) m/uL Hgb 8.4 L (13.0-17.5) gm/dL Hct 25.8 L (39.0-53.0) % Plt Count 476 H (150-450) k/uL ABG pH (7.35-7.45) ABG HCO3 (21-25) mmol/L ABG Total CO2 (19-24) mmol/L ABG O2 Saturation (94-97) % Sodium 136 L (137-145) mmol/L Carbon Dioxide 32 H (22-30) mmol/L BUN 21 H (9-20) mg/dL POC Glucose (mg/dL) 122 H (75-99) mg/dL 06/04/20 06/04/20 06/04/20 Range/Units 03:59 04:57 05:05 WBC (3.8-10.6) k/uL RBC (4.30-5.90) m/uL Hgb (13.0-17.5) gm/dL Hct (39.0-53.0) % Plt Count (150-450) k/uL ABG pH 7.47 H (7.35-7.45) ABG HCO3 30 H (21-25) mmol/L ABG Total CO2 31 H (19-24) mmol/L ABG O2 Saturation 98.8 H (94-97) % Sodium (137-145) mmol/L Carbon Dioxide (22-30) mmol/L BUN (9-20) mg/dL POC Glucose (mg/dL) 111 H 111 H (75-99) mg/dL 06/04/20 06/04/20 06/04/20 Range/Units 05:48 07:25 08:08 WBC (3.8-10.6) k/uL RBC (4.30-5.90) m/uL Hgb (13.0-17.5) gm/dL Hct (39.0-53.0) % Plt Count (150-450) k/uL ABG pH (7.35-7.45) ABG HCO3 (21-25) mmol/L ABG Total CO2 (19-24) mmol/L ABG O2 Saturation (94-97) % Sodium (137-145) mmol/L Carbon Dioxide (22-30) mmol/L BUN (9-20) mg/dL POC Glucose (mg/dL) 138 H 153 H 143 H (75-99) mg/dL 06/04/20 06/04/20 Range/Units 09:13 10:13 WBC (3.8-10.6) k/uL RBC (4.30-5.90) m/uL Hgb (13.0-17.5) gm/dL Hct (39.0-53.0) % Plt Count (150-450) k/uL ABG pH (7.35-7.45) ABG HCO3 (21-25) mmol/L ABG Total CO2 (19-24) mmol/L ABG O2 Saturation (94-97) % Sodium (137-145) mmol/L Carbon Dioxide (22-30) mmol/L BUN (9-20) mg/dL POC Glucose (mg/dL) 122 H 125 H (75-99) mg/dL Microbiology - Last 24 Hours (Table) 06/02/20 08:40 Gram Stain - Final Sputum Sputum Culture - Final Serratia marcescens - Imaging and Cardiology Chest x-ray: report reviewed, image reviewed Assessment and Plan Assessment: 1. Unstable angina, severe calcific 3 vessel coronary artery disease, status post three-vessel CABG 2. Recent stroke in November 2019 with continued short-term memory loss and impulsivity 3. Cardiomyopathy with EF 45-50% 4. Hypertension 5. Hyperlipidemia 6. Insulin-dependent diabetes with preoperative hemoglobin A1c 8% 7. Asthma 8. Previous tobacco dependence with preoperative FEV1 75% of predicted 9. Family history of premature coronary artery disease with father diagnosed less than 60 years old. 10. Postoperative acute blood loss anemia and thrombocytopenia, expected 11. Acute hypoxic respiratory failure requiring reintubation, unexpected 12. Metabolic alkalosis, hypokalemia 13. Malnutrition, s/p PEG tube placement 14. Prolonged mechanical ventilation, s/p tracheostomy placement Plan: 1. Continue aspirin rectal. Will restart oral statin, Plavix tomorrow when PEG can be used again. Continue IV beta sarah therapy. 2. Ventilator managment, bronchodilators per pulmonology. Wean as tolerated 3. Will monitor daily labs and x-rays. Electrolyte replacement per protocol. 4. GI/DVT prophylaxis 5. Pain control with current medication regimen 6. Insulin management per Dr. Tafoya 7. Will restart tube feedings tomorrow, restart meds thru PEG tomorrow 8. Strict accurate intake and output, daily weight 9. Limit IV sedation as much as possible 10. Reorient as needed. Work towards being able to remove restraints 11. Social work/case management on consult for discharge planning, patient will need LTAC 12. More recommendations to follow based on patient's progress Time with Patient: Greater than 30
--- NOTE | 2020-06-04 11:25 | P.PN ---
Progress Note - Text Progress Note Date: 06/04/20 Patient's PEG site is clean. There is no significant drainage. Patient will resume tube feeds tomorrow.
[2020-06-04 12:31] LABS: Glucose,Whole Blood 113 mg/dL (75-99)
--- NOTE | 2020-06-04 12:33 | P.PN ---
Subjective Progress Note Date: 06/04/20 On-call hospitalist covering Dr. Tafoya will resume the care of the patient on 06/05 This is a pleasant 74 years old male with history of unstable angina and found to have severe three-vessel coronary artery disease, he underwent coronary artery bypass grafting on 05/22. Postoperatively he was extubated within 1-2 days and placed on 2 L/m oxygen via nasal cannula, patient was noted to be forgetful and difficult to be educated about his care. However on 05/26 became more agitated and hypoxic and he had to be reintubated again by Dr. Perdomo. looks like patient has difficulty to be weaned off the ventilating machine. CT of the brain showed no acute intracranial abnormality but there is mild to moderate diffuse cerebral atrophy. Eventually surgery team were consulted for PEG tube placement and tracheostomy which the patient has both of them now. Also patient has been followed by several consultants including surgery team, cardiology as well as pulmonary/critical care team, who remains on mechanical ventilation. He is hemodynamically stable and does not need any pressors.Chest x-ray showed low lung volume with cardiomegaly, with mild central vascular congestion is suspected and left greater than right bibasilar acute infiltrate and/or atelectasis. No significant change from prior chest x-ray Labs reviewed and looks stable. Sugar controlled or slightly elevated 06/02/2020 Patient is in the ICU, intubated and sedated and he has issue with his mentation whenever he comes off sedation, currently pulmonary/critical care tumor trying to wean him and slowly from sedation while monitoring his mentation closely. No significant change in labs and vitals. In the meantime patient remained on Levaquin, insulin drip, Seroquel is added. Also is on aspirin and Plavix and subcutaneous heparin for DVT prophylaxis. Chest x-ray showing similar changes on the slightly worsening. 06/03/2020 Patient today while he was undergoing sedation holiday he got agitated and he pulled out his PEG tube, Hearn catheter and IV line while he is in restraints Surgery team were called and they replace the PEG tube back but because of bleeding at the site the recommended to hold it until Friday. CBC and BMP are stable. He is a slightly bradycardic but blood pressure is stable. Glucose controlled Remains on aspirin and Plavix. He is on an insulin drip. Levaquin antibiotic. Ancef Seroquel twice a day. 06/04/2020 Patient is seen and evaluated in follow-up currently remains in the ICU being closely monitored. Patient continues to be on the vent via tracheostomy minimal sedation. Patient continues to be confused at times and attempts to pull at tubing. Patient pulled his PEG tube yesterday and was replaced by surgery and patient will continue to hold use of PEG tube until Friday per surgery recommendations. Will continue to monitor blood sugars before meals at bedtime if patient continues to have an insulin drip for tight glycemic control although blood sugars have been well controlled at this time and will continue to monitor as tube feedings will be resumed tomorrow. Review of systems: Unable to obtain as patient continues to be sedated and confused at times Objective - Vital Signs Vital signs: Vital Signs Temp 98.9 F 06/04/20 08:00 Pulse 61 06/04/20 11:00 Resp 17 06/04/20 11:00 BP 97/52 06/04/20 11:00 Pulse Ox 98 06/04/20 11:00 Intake & Output 06/03/20 06/04/20 06/04/20 18:59 06:59 18:59 Intake Total 920.621 763.114 296.421 Output Total 145 Balance 775.621 763.114 296.421 Weight 87.412 kg Intake: IV 480 600 250 LR 480 600 250 Intake, IV Titration 140.621 163.114 46.421 Amount Dexmedetomidine/0.9% NaCl 27.713 110.342 26.22 (Pmx) 400 mcg In Empty Bag 1 bag @ 0.2 MCG/KG/HR 4.37 mls/hr IV .[id number] [facility] Rx#:[id number] Insulin Regular 100 unit 55.902 52.772 20.201 In Sodium Chloride 0.9% 100 ml @ Per Protocol IV .Q0M [facility] Rx#:[id number] propofoL 1,000 mg In 57.006 Empty Bag 1 bag @ Titrate IV .Q0M [facility] Rx#: [id number] Tube Feeding 270 Other 30 Output: Urine 145 Other: Voiding Method Indwelling Catheter Urinal Urinal Diaper Diaper Incontinent Incontinent # Voids 1 ABP, PAP, CO, CI - Last Documented Arterial Blood Pressure 103/42 Pulmonary Artery Pressure 32/15 Cardiac Output 4.4 Cardiac Index 2.2 - Exam GENERAL: The patient is sedated and on mechanical ventilation, status post tracheostomy HEENT: Pupils are round and equally reacting to light. EOMI. No scleral icterus. No conjunctival pallor. Normocephalic, atraumatic. No pharyngeal erythema. No thyromegaly. CARDIOVASCULAR: S1 and S2 present. No murmurs, rubs, or gallops. Heart hugger noted around the chest PULMONARY: Chest is clear to auscultation, no wheezing or crackles. ABDOMEN: Soft, nontender, nondistended, normoactive bowel sounds. No palpable organomegaly. PEG tube is in place MUSCULOSKELETAL: No joint swelling or deformity. EXTREMITIES: No cyanosis, clubbing, or pedal edema. NEUROLOGICAL: Gross neurological examination did not reveal any focal deficits. SKIN: No rashes. no petechiae. - Labs CBC & Chem 7: 06/04/20 03:44 06/04/20 03:44 Labs: Abnormal Lab Results - Last 24 Hours (Table) 06/03/20 06/03/20 06/03/20 Range/Units 12:28 13:19 14:17 WBC (3.8-10.6) k/uL RBC (4.30-5.90) m/uL Hgb (13.0-17.5) gm/dL Hct (39.0-53.0) % Plt Count (150-450) k/uL ABG pH (7.35-7.45) ABG HCO3 (21-25) mmol/L ABG Total CO2 (19-24) mmol/L ABG O2 Saturation (94-97) % Sodium (137-145) mmol/L Carbon Dioxide (22-30) mmol/L BUN (9-20) mg/dL POC Glucose (mg/dL) 106 H 107 H 125 H (75-99) mg/dL 06/03/20 06/03/20 06/03/20 Range/Units 16:09 17:49 19:03 WBC (3.8-10.6) k/uL RBC (4.30-5.90) m/uL Hgb (13.0-17.5) gm/dL Hct (39.0-53.0) % Plt Count (150-450) k/uL ABG pH (7.35-7.45) ABG HCO3 (21-25) mmol/L ABG Total CO2 (19-24) mmol/L ABG O2 Saturation (94-97) % Sodium (137-145) mmol/L Carbon Dioxide (22-30) mmol/L BUN (9-20) mg/dL POC Glucose (mg/dL) 113 H 164 H 141 H (75-99) mg/dL 06/03/20 06/03/20 06/03/20 Range/Units 19:51 22:08 23:06 WBC (3.8-10.6) k/uL RBC (4.30-5.90) m/uL Hgb (13.0-17.5) gm/dL Hct (39.0-53.0) % Plt Count (150-450) k/uL ABG pH (7.35-7.45) ABG HCO3 (21-25) mmol/L ABG Total CO2 (19-24) mmol/L ABG O2 Saturation (94-97) % Sodium (137-145) mmol/L Carbon Dioxide (22-30) mmol/L BUN (9-20) mg/dL POC Glucose (mg/dL) 132 H 73 L 131 H (75-99) mg/dL 06/04/20 06/04/20 06/04/20 Range/Units 00:05 01:09 03:44 WBC 10.7 H (3.8-10.6) k/uL RBC 2.83 L (4.30-5.90) m/uL Hgb 8.4 L (13.0-17.5) gm/dL Hct 25.8 L (39.0-53.0) % Plt Count 476 H (150-450) k/uL ABG pH (7.35-7.45) ABG HCO3 (21-25) mmol/L ABG Total CO2 (19-24) mmol/L ABG O2 Saturation (94-97) % Sodium (137-145) mmol/L Carbon Dioxide (22-30) mmol/L BUN (9-20) mg/dL POC Glucose (mg/dL) 133 H 122 H (75-99) mg/dL 06/04/20 06/04/20 06/04/20 Range/Units 03:44 03:59 04:57 WBC (3.8-10.6) k/uL RBC (4.30-5.90) m/uL Hgb (13.0-17.5) gm/dL Hct (39.0-53.0) % Plt Count (150-450) k/uL ABG pH 7.47 H (7.35-7.45) ABG HCO3 30 H (21-25) mmol/L ABG Total CO2 31 H (19-24) mmol/L ABG O2 Saturation 98.8 H (94-97) % Sodium 136 L (137-145) mmol/L Carbon Dioxide 32 H (22-30) mmol/L BUN 21 H (9-20) mg/dL POC Glucose (mg/dL) 111 H (75-99) mg/dL 06/04/20 06/04/20 06/04/20 Range/Units 05:05 05:48 07:25 WBC (3.8-10.6) k/uL RBC (4.30-5.90) m/uL Hgb (13.0-17.5) gm/dL Hct (39.0-53.0) % Plt Count (150-450) k/uL ABG pH (7.35-7.45) ABG HCO3 (21-25) mmol/L ABG Total CO2 (19-24) mmol/L ABG O2 Saturation (94-97) % Sodium (137-145) mmol/L Carbon Dioxide (22-30) mmol/L BUN (9-20) mg/dL POC Glucose (mg/dL) 111 H 138 H 153 H (75-99) mg/dL 06/04/20 06/04/20 06/04/20 Range/Units 08:08 09:13 10:13 WBC (3.8-10.6) k/uL RBC (4.30-5.90) m/uL Hgb (13.0-17.5) gm/dL Hct (39.0-53.0) % Plt Count (150-450) k/uL ABG pH (7.35-7.45) ABG HCO3 (21-25) mmol/L ABG Total CO2 (19-24) mmol/L ABG O2 Saturation (94-97) % Sodium (137-145) mmol/L Carbon Dioxide (22-30) mmol/L BUN (9-20) mg/dL POC Glucose (mg/dL) 143 H 122 H 125 H (75-99) mg/dL 06/04/20 Range/Units 11:11 WBC (3.8-10.6) k/uL RBC (4.30-5.90) m/uL Hgb (13.0-17.5) gm/dL Hct (39.0-53.0) % Plt Count (150-450) k/uL ABG pH (7.35-7.45) ABG HCO3 (21-25) mmol/L ABG Total CO2 (19-24) mmol/L ABG O2 Saturation (94-97) % Sodium (137-145) mmol/L Carbon Dioxide (22-30) mmol/L BUN (9-20) mg/dL POC Glucose (mg/dL) 109 H (75-99) mg/dL Microbiology - Last 24 Hours (Table) 06/02/20 08:40 Gram Stain - Final Sputum Sputum Culture - Final Serratia marcescens Assessment and Plan Assessment: Triple-vessel coronary artery disease status post bypass surgery on 05/22 Acute hypoxic respiratory failure on mechanical ventilation. Status post tracheostomy and PEG tube replacement Agitation with altered mental status, currently sedated. Slowly weaning sedation Possible elements of pulmonary infiltrate or pneumonia. History of CVA Ischemic cardiomyopathy with ejection fraction 45-50% DVT prophylaxis: Subcutaneous heparin GI Prophylaxis: Protonix Plan: This is a 74 years old male who presents with acute hypoxic respiratory failure with difficulty weaning from the vent and is currently has tracheostomy minimal sedation. Patient becomes agitated and pulled that IVs, tubing, and lines and continues on minimal sedation. Patient is followed by many consultants including pulmonary/critical care team, tool design checker, surgery and the primary cardiothoracic team. Patient is maintained on Plavix although currently being held and will be resumed tomorrow as patient had some bleeding noted at the PEG tube site where he had almost pulled the PEG tube out. Surgery replace the PEG tube and will resume use tomorrow. Patient continues on insulin drip although on hold as blood sugars remain in the 100s and will continue with Accu-Cheks before meals at bedtime and monitor closely and feedings to be resumed tomorrow. Labs and medication were reviewed.. Continue same treatment. Continue with symptomatic treatment. Resume home medication. Monitor lytes and vitals. DVT and GI prophylaxis. Further recommendations as per clinical course of the patient Prognosis is guarded
[2020-06-04 13:01] LABS: Glucose,Whole Blood 117 mg/dL (75-99)
[2020-06-04 14:06] LABS: Glucose,Whole Blood 130 mg/dL (75-99)
--- NOTE | 2020-06-04 14:09 | P.PN ---
Subjective HISTORY OF PRESENT ILLNESS: Patient is status post CABG 3. Patient had PEG tube replaced yesterday at bedside. Has been switched to Precedex for sedation. Patient somnolent on ventilator. Has not been able to receive by mouth or NG medications and therefore metoprolol 2.5 mg IV pushes every 6 hours have been ordered. Patient remains in sinus rhythm. PHYSICAL EXAM: VITAL SIGNS: Reviewed. GENERAL: Well-developed in no acute distress. NECK: Supple. No JVD or thyromegaly, +trach LUNGS: Respirations even and unlabored. Lungs diminished. Remains on mechanical ventilation HEART: Regular rate and rhythm. S1 and S2 heard. EXTREMITIES: Normal range of motion. No clubbing or cyanosis. Peripheral pulses intact. No lower extremity edema ASSESSMENT: 1. Unstable angina, severe 3 vessel coronary artery disease, status post three-vessel CABG 2. Recent stroke in November 2019 with continued short-term memory loss and impulsivity 3. Ischemic Cardiomyopathy with EF 45-50% 4. Hypertension 5. Hyperlipidemia 6. Insulin-dependent diabetes with preoperative hemoglobin A1c 8% 7. Asthma 8. Previous tobacco dependence with preoperative FEV1 75% of predicted 9. Family history of premature coronary artery disease with father diagnosed le ss than 60 years old. PLAN: Continue with supportive care. Continue aspirin, Plavix, statin, beta sarah. Prognosis guarded. Objective - Vital Signs Vital signs: Vital Signs Temp 98.3 F 06/04/20 12:00 Pulse 62 06/04/20 13:00 Resp 20 06/04/20 13:00 BP 139/66 06/04/20 13:00 Pulse Ox 98 06/04/20 13:00 Intake & Output 06/03/20 06/04/20 06/04/20 18:59 06:59 18:59 Intake Total 920.621 763.114 396.421 Output Total 145 Balance 775.621 763.114 396.421 Weight 87.412 kg 87.412 kg Intake: IV 480 600 350 LR 480 600 350 Intake, IV Titration 140.621 163.114 46.421 Amount Dexmedetomidine/0.9% NaCl 27.713 110.342 26.22 (Pmx) 400 mcg In Empty Bag 1 bag @ 0.2 MCG/KG/HR 4.37 mls/hr IV .[id number] [facility] Rx#:[id number] Insulin Regular 100 unit 55.902 52.772 20.201 In Sodium Chloride 0.9% 100 ml @ Per Protocol IV .Q0M [facility] Rx#:[id number] propofoL 1,000 mg In 57.006 Empty Bag 1 bag @ Titrate IV .Q0M [facility] Rx#: [id number] Tube Feeding 270 Other 30 Output: Urine 145 Other: Voiding Method Indwelling Catheter Urinal Urinal Diaper Diaper Incontinent Incontinent # Voids 1 1 ABP, PAP, CO, CI - Last Documented Arterial Blood Pressure 103/42 Pulmonary Artery Pressure 32/15 Cardiac Output 4.4 Cardiac Index 2.2 - Labs CBC & Chem 7: 06/04/20 03:44 06/04/20 03:44 Labs: Abnormal Lab Results - Last 24 Hours (Table) 06/03/20 06/03/20 06/03/20 Range/Units 14:17 16:09 17:49 WBC (3.8-10.6) k/uL RBC (4.30-5.90) m/uL Hgb (13.0-17.5) gm/dL Hct (39.0-53.0) % Plt Count (150-450) k/uL ABG pH (7.35-7.45) ABG HCO3 (21-25) mmol/L ABG Total CO2 (19-24) mmol/L ABG O2 Saturation (94-97) % Sodium (137-145) mmol/L Carbon Dioxide (22-30) mmol/L BUN (9-20) mg/dL POC Glucose (mg/dL) 125 H 113 H 164 H (75-99) mg/dL 06/03/20 06/03/20 06/03/20 Range/Units 19:03 19:51 22:08 WBC (3.8-10.6) k/uL RBC (4.30-5.90) m/uL Hgb (13.0-17.5) gm/dL Hct (39.0-53.0) % Plt Count (150-450) k/uL ABG pH (7.35-7.45) ABG HCO3 (21-25) mmol/L ABG Total CO2 (19-24) mmol/L ABG O2 Saturation (94-97) % Sodium (137-145) mmol/L Carbon Dioxide (22-30) mmol/L BUN (9-20) mg/dL POC Glucose (mg/dL) 141 H 132 H 73 L (75-99) mg/dL 06/03/20 06/04/20 06/04/20 Range/Units 23:06 00:05 01:09 WBC (3.8-10.6) k/uL RBC (4.30-5.90) m/uL Hgb (13.0-17.5) gm/dL Hct (39.0-53.0) % Plt Count (150-450) k/uL ABG pH (7.35-7.45) ABG HCO3 (21-25) mmol/L ABG Total CO2 (19-24) mmol/L ABG O2 Saturation (94-97) % Sodium (137-145) mmol/L Carbon Dioxide (22-30) mmol/L BUN (9-20) mg/dL POC Glucose (mg/dL) 131 H 133 H 122 H (75-99) mg/dL 06/04/20 06/04/20 06/04/20 Range/Units 03:44 03:44 03:59 WBC 10.7 H (3.8-10.6) k/uL RBC 2.83 L (4.30-5.90) m/uL Hgb 8.4 L (13.0-17.5) gm/dL Hct 25.8 L (39.0-53.0) % Plt Count 476 H (150-450) k/uL ABG pH (7.35-7.45) ABG HCO3 (21-25) mmol/L ABG Total CO2 (19-24) mmol/L ABG O2 Saturation (94-97) % Sodium 136 L (137-145) mmol/L Carbon Dioxide 32 H (22-30) mmol/L BUN 21 H (9-20) mg/dL POC Glucose (mg/dL) 111 H (75-99) mg/dL 06/04/20 06/04/20 06/04/20 Range/Units 04:57 05:05 05:48 WBC (3.8-10.6) k/uL RBC (4.30-5.90) m/uL Hgb (13.0-17.5) gm/dL Hct (39.0-53.0) % Plt Count (150-450) k/uL ABG pH 7.47 H (7.35-7.45) ABG HCO3 30 H (21-25) mmol/L ABG Total CO2 31 H (19-24) mmol/L ABG O2 Saturation 98.8 H (94-97) % Sodium (137-145) mmol/L Carbon Dioxide (22-30) mmol/L BUN (9-20) mg/dL POC Glucose (mg/dL) 111 H 138 H (75-99) mg/dL 06/04/20 06/04/20 06/04/20 Range/Units 07:25 08:08 09:13 WBC (3.8-10.6) k/uL RBC (4.30-5.90) m/uL Hgb (13.0-17.5) gm/dL Hct (39.0-53.0) % Plt Count (150-450) k/uL ABG pH (7.35-7.45) ABG HCO3 (21-25) mmol/L ABG Total CO2 (19-24) mmol/L ABG O2 Saturation (94-97) % Sodium (137-145) mmol/L Carbon Dioxide (22-30) mmol/L BUN (9-20) mg/dL POC Glucose (mg/dL) 153 H 143 H 122 H (75-99) mg/dL 06/04/20 06/04/20 06/04/20 Range/Units 10:13 11:11 12:30 WBC (3.8-10.6) k/uL RBC (4.30-5.90) m/uL Hgb (13.0-17.5) gm/dL Hct (39.0-53.0) % Plt Count (150-450) k/uL ABG pH (7.35-7.45) ABG HCO3 (21-25) mmol/L ABG Total CO2 (19-24) mmol/L ABG O2 Saturation (94-97) % Sodium (137-145) mmol/L Carbon Dioxide (22-30) mmol/L BUN (9-20) mg/dL POC Glucose (mg/dL) 125 H 109 H 113 H (75-99) mg/dL 06/04/20 Range/Units 13:00 WBC (3.8-10.6) k/uL RBC (4.30-5.90) m/uL Hgb (13.0-17.5) gm/dL Hct (39.0-53.0) % Plt Count (150-450) k/uL ABG pH (7.35-7.45) ABG HCO3 (21-25) mmol/L ABG Total CO2 (19-24) mmol/L ABG O2 Saturation (94-97) % Sodium (137-145) mmol/L Carbon Dioxide (22-30) mmol/L BUN (9-20) mg/dL POC Glucose (mg/dL) 117 H (75-99) mg/dL Microbiology - Last 24 Hours (Table) 06/02/20 08:40 Gram Stain - Final Sputum Sputum Culture - Final Serratia marcescens
[2020-06-04 14:53] LABS: Glucose,Whole Blood 133 mg/dL (75-99)
[2020-06-04 16:06] LABS: Glucose,Whole Blood 114 mg/dL (75-99)
[2020-06-04 17:06] LABS: Glucose,Whole Blood 118 mg/dL (75-99)
[2020-06-04 18:05] LABS: Glucose,Whole Blood 129 mg/dL (75-99)
[2020-06-04 18:47] LABS: Glucose,Whole Blood 154 mg/dL (75-99)
[2020-06-04] MEDS: SENNOSIDES-DOCUSATE SODIUM 1 EACH TAB PO SCH (19:51)
[2020-06-04 20:07] LABS: Glucose,Whole Blood 133 mg/dL (75-99)
[2020-06-04 21:20] LABS: Glucose,Whole Blood 119 mg/dL (75-99)
[2020-06-04 22:11] LABS: Glucose,Whole Blood 113 mg/dL (75-99)
[2020-06-04] MEDS: LEVOFLOXACIN 500MG-D5W PMX 500 MG in DEXTROSE/WATER 1 100ML.BAG IVPB SCH (22:16)
[2020-06-04 23:16] LABS: Glucose,Whole Blood 152 mg/dL (75-99)
[2020-06-05 00:06] LABS: Glucose,Whole Blood 153 mg/dL (75-99)
[2020-06-05] MEDS: METOPROLOL TARTRATE 5 MG/5 ML VIAL IVP SCH ×2 (00:37→05:49)
[2020-06-05 01:52] LABS: Glucose,Whole Blood 139 mg/dL (75-99)
[2020-06-05] MEDS: IPRATROPIUM-ALBUTEROL 3 ML NEB INHALATION SCH ×5 (03:07→18:45)
[2020-06-05 04:05] LABS: Glucose,Whole Blood 124 mg/dL (75-99)
[2020-06-05] MEDS: LACTATED RINGERS 1,000 ML IV SCH ×2 (04:15→22:10)
[2020-06-05 04:17] LABS: HCT 27.2 % (39.0-53.0); HGB 8.8 gm/dL (13.0-17.5); Hypochromasia Slight; MCH 29.1 pg (25.0-35.0); MCHC 32.2 g/dL (31.0-37.0); MCV 90.3 fL (80.0-100.0); Mean Platelet Volume 7.8; Platelet Count 557 k/uL (150-450); RBC 3.01 m/uL (4.30-5.90); RDW 13.7 % (11.5-15.5); WBC 9.7 k/uL (3.8-10.6)
[2020-06-05 04:34] LABS: African American GFR (CKD) >90 (>60 ml/min/1.73 sqM); Anion Gap 3 mmol/L; Blood Urea Nitrogen 17 mg/dL (9-20); Calcium 8.4 mg/dL (8.4-10.2); Carbon Dioxide 30 mmol/L (22-30); Chloride 102 mmol/L (98-107); Glucose 128 mg/dL (74-99); Non-African American GFR(CKD) >90 (>60 ml/min/1.73 sqM); Potassium 4.2 mmol/L (3.5-5.1); Sodium 135 mmol/L (137-145)
[2020-06-05] MEDS: HEPARIN SODIUM,PORCINE 5,000 UNIT/ML 1 ML VIAL SQ SCH ×3 (04:40→20:13)
[2020-06-05] MEDS: DEXMEDETOMIDINE/0.9% NACL(PMX) 400 MCG in EMPTY BAG 1 BAG IV SCH ×2 (04:46→10:57)
[2020-06-05 05:21] LABS: Glucose,Whole Blood 122 mg/dL (75-99)
[2020-06-05 05:38] LABS: ABG HCO3 32 mmol/L (21-25); ABG Oxygen Saturation 97.6 % (94-97); ABG PCO2 42 mmHg (35-45); ABG PH 7.49 (7.35-7.45); ABG PO2 84 mmHg (83-108); ABG TCO2 34 mmol/L (19-24); Allen Test Performed? Yes
[2020-06-05 06:11] LABS: Glucose,Whole Blood 112 mg/dL (75-99)
[2020-06-05 06:54] LABS: Glucose,Whole Blood 133 mg/dL (75-99)
--- NOTE | 2020-06-05 07:27 | XR ---
EXAMINATION TYPE: XR chest 1V portable DATE OF EXAM: 06/05/2020 CLINICAL HISTORY: Difficulty breathing progress study. Postoperative cardiac surgery. TECHNIQUE: Single AP portable semiupright view of the chest is obtained. COMPARISON: Chest x-ray from one day earlier and older studies. FINDINGS: Stable tracheostomy tube. Overlying sternal wires and mediastinal clips along with left at rial appendage clip redemonstrated. Stable cardiomegaly. Stable low lung volumes with central vascula r congestion. Osseous structures are intact. IMPRESSION: Low lung volumes and cardiomegaly with moderate central vascular congestion and probable small bilateral pleural effusions are all redemonstrated. No significant change from most recent x-ra y.
[2020-06-05 09:17] LABS: Glucose,Whole Blood 115 mg/dL (75-99)
[2020-06-05] MEDS ORDERED: bisacodyL 10 MG SUPP RECTAL PRN (09:27)
[2020-06-05] MEDS: ASPIRIN 300 MG SUPP RECTAL SCH (09:36)
[2020-06-05] MEDS: bisacodyL 10 MG SUPP RECTAL SCH (09:36)
[2020-06-05] MEDS: polyethylene glycoL 3350 17 GM POWD.PACK PO SCH ×2 (09:46→18:36)
[2020-06-05] MEDS: ATORVASTATIN 40 MG TAB PO SCH ×2 (09:46→18:37)
[2020-06-05] MEDS: CHLORHEXIDINE GLUCONATE 15 ML CUP MUCOUS MEM SCH ×2 (09:46→20:13)
[2020-06-05] MEDS: clonazePAM 1 MG TAB PO SCH ×2 (09:46→20:13)
[2020-06-05] MEDS: QUEtiapine 100 MG TAB PO SCH ×2 (09:46→20:13)
[2020-06-05] MEDS: CLOPIDOGREL 75 MG TAB PO SCH ×2 (09:46→18:36)
[2020-06-05] MEDS: PANTOPRAZOLE 40 MG/10 ML VIAL IVP SCH (09:46)
[2020-06-05] MEDS: ASPIRIN 325 MG TAB PO SCH (09:48)
[2020-06-05] MEDS: METOPROLOL TARTRATE 12.5 MG TAB PO SCH ×2 (09:48→20:13)
[2020-06-05 10:17] LABS: Glucose,Whole Blood 116 mg/dL (75-99)
[2020-06-05] MEDS ORDERED: FUROSEMIDE 10 MG/ML 4 ML VIAL IV STA (10:34)
--- NOTE | 2020-06-05 10:37 | P.PN ---
Subjective Progress Note Date: 06/05/20 Principal diagnosis: Unstable angina, severe calcific 3 vessel coronary artery disease. Previous medical history of recent stroke in November 2019 with continued short-term memory loss and impulsivity, cardiomyopathy with EF 45-50%, hypertension, hyperlipidemia, insulin-dependent diabetes with preoperative hemoglobin A1c 8%, asthma, previous tobacco dependence with preoperative FEV1 75% of predicted, and family history of premature coronary artery disease with father diagnosed less than 60 years old. POD #14 coronary artery bypass grafting 3 with the left internal mammary artery to the left anterior descending artery, reverse saphenous vein graft off the aorta to the first obtuse marginal artery and the posterior descending artery with endoscopic vein harvesting of the left lower extremity greater saphenous vein, clip ligation of the left atrial appendage with a 35 mm AtriClip and intraoperative transesophageal echocardiogram. Postoperative acute blood loss anemia and thrombocytopenia, expected outcomes given hemodilution and cardiopulmonary bypass pump Acute hypoxic respiratory failure requiring re-intubation, unexpected, likely from inability to clear secretions, prolonged mechanical ventilation POD #8 PEG tube placement POD #5 Tracheostomy placement The patient is laying in the ICU on mechanical ventilation, stable with minimal sedation. Remains in normal sinus rhythm, hemodynamically stable on no pressors. Does open his eyes, follows simple commands. Remains restrained as he is impulsive and does attempt to pull at his trach and PEG. Patient did have urinary retention last night requiring straight catheterization 1. Tube feeding to be restarted today, oral medications to be restarted as well. Currently on CPAP and tolerating well. Sputum culture from June 02 positive for Serratia which is sensitive to Levaquin, has remained afebrile since June 02. Sister Johanne updated extensively via phone yesterday. Objective - Vital Signs Vital signs: Vital Signs Temp 98.3 F 06/05/20 08:00 Pulse 68 06/05/20 10:20 Resp 16 06/05/20 10:00 BP 149/72 06/05/20 10:00 Pulse Ox 97 06/05/20 10:00 Intake & Output 06/04/20 06/05/20 06/05/20 18:59 06:59 18:59 Intake Total 659.787 849.953 214.418 Output Total 350 0 Balance 659.787 499.953 214.418 Weight 87.412 kg 87.8 kg Intake: IV 600 700 200 LR 600 600 200 Levofloxacin 500Mg-D5w 100 Pmx 500 mg In Dextrose/ Water 1 100ml.bag @ 100 mls/hr IVPB Q24H [facility] Rx#: [id number] Intake, IV Titration 59.787 149.953 14.418 Amount Dexmedetomidine/0.9% NaCl 26.22 100 (Pmx) 400 mcg In Empty Bag 1 bag @ 0.2 MCG/KG/HR 4.37 mls/hr IV .[id number] [facility] Rx#:[id number] Insulin Regular 100 unit 33.567 49.953 14.418 In Sodium Chloride 0.9% 100 ml @ Per Protocol IV .Q0M [facility] Rx#:[id number] Output: Urine 350 0 Other: Voiding Method Urinal Urinal Diaper Diaper Incontinent Incontinent # Voids 1 0 # Bowel Movements 1 ABP, PAP, CO, CI - Last Documented Arterial Blood Pressure 103/42 Pulmonary Artery Pressure 32/15 Cardiac Output 4.4 Cardiac Index 2.2 - Constitutional Constitutional Comment(s): currently calm, does get fidgety and attempts to pull at lines and tubes, remains restrained for this reason, patient has short term memory loss and impulsivity since his stroke General appearance: Present: no acute distress - Respiratory Details: Lungs sounds diminished bilaterally. Respirations even, nonlabored on mechanical ventilation. Vent settings FiO2 40%, TV 400, RR 16, PEEP 5. ABGs this AM on those settings 7.49/42/84/32/97%/9.0 on those settings. 8.0 Shiley tracheostomy present - Cardiovascular Details: S1, S2 present. Regular rate and rhythm, sinus rhythm on telemetry with heart rate in the 60s. Sternum stable. Palpable peripheral pulses bilaterally. No edema present. Heart hugger in place, antiembolism stockings, SCDs present. - Gastrointestinal Gastrointestinal Comment(s): Abdomen soft, nontender, nondistended. Active bowel sounds present 4 quadrants. PEG tube in place, feedings be restarted. Last BM 06/04/20 per nursing - Genitourinary Genitourinary Comment(s): Incontinent of urine, was straight cathed 1 last night for 350 mL - Integumentary Integumentary Comment(s): Skin is warm and dry. Anterior chest incision well approximated. Left lower extremity EVH site well approximated without redness or drainage. PEG tube incision without redness. Trach incision with small amount serous drainage - Neurologic Neurologic Comment(s): does open eyes and moves extremities, follows simple commands - Allied health notes Allied health notes reviewed: nursing - Labs CBC & Chem 7: 06/05/20 04:00 06/05/20 04:00 Labs: Abnormal Lab Results - Last 24 Hours (Table) 06/04/20 06/04/20 06/04/20 Range/Units 11:11 12:30 13:00 RBC (4.30-5.90) m/uL Hgb (13.0-17.5) gm/dL Hct (39.0-53.0) % Plt Count (150-450) k/uL ABG pH (7.35-7.45) ABG HCO3 (21-25) mmol/L ABG Total CO2 (19-24) mmol/L ABG O2 Saturation (94-97) % Sodium (137-145) mmol/L Creatinine (0.66-1.25) mg/dL Glucose (74-99) mg/dL POC Glucose (mg/dL) 109 H 113 H 117 H (75-99) mg/dL 06/04/20 06/04/20 06/04/20 Range/Units 14:02 14:52 16:04 RBC (4.30-5.90) m/uL Hgb (13.0-17.5) gm/dL Hct (39.0-53.0) % Plt Count (150-450) k/uL ABG pH (7.35-7.45) ABG HCO3 (21-25) mmol/L ABG Total CO2 (19-24) mmol/L ABG O2 Saturation (94-97) % Sodium (137-145) mmol/L Creatinine (0.66-1.25) mg/dL Glucose (74-99) mg/dL POC Glucose (mg/dL) 130 H 133 H 114 H (75-99) mg/dL 06/04/20 06/04/20 06/04/20 Range/Units 17:04 18:04 18:46 RBC (4.30-5.90) m/uL Hgb (13.0-17.5) gm/dL Hct (39.0-53.0) % Plt Count (150-450) k/uL ABG pH (7.35-7.45) ABG HCO3 (21-25) mmol/L ABG Total CO2 (19-24) mmol/L ABG O2 Saturation (94-97) % Sodium (137-145) mmol/L Creatinine (0.66-1.25) mg/dL Glucose (74-99) mg/dL POC Glucose (mg/dL) 118 H 129 H 154 H (75-99) mg/dL 06/04/20 06/04/20 06/04/20 Range/Units 20:06 21:19 22:11 RBC (4.30-5.90) m/uL Hgb (13.0-17.5) gm/dL Hct (39.0-53.0) % Plt Count (150-450) k/uL ABG pH (7.35-7.45) ABG HCO3 (21-25) mmol/L ABG Total CO2 (19-24) mmol/L ABG O2 Saturation (94-97) % Sodium (137-145) mmol/L Creatinine (0.66-1.25) mg/dL Glucose (74-99) mg/dL POC Glucose (mg/dL) 133 H 119 H 113 H (75-99) mg/dL 06/04/20 06/05/20 06/05/20 Range/Units 23:14 00:04 01:50 RBC (4.30-5.90) m/uL Hgb (13.0-17.5) gm/dL Hct (39.0-53.0) % Plt Count (150-450) k/uL ABG pH (7.35-7.45) ABG HCO3 (21-25) mmol/L ABG Total CO2 (19-24) mmol/L ABG O2 Saturation (94-97) % Sodium (137-145) mmol/L Creatinine (0.66-1.25) mg/dL Glucose (74-99) mg/dL POC Glucose (mg/dL) 152 H 153 H 139 H (75-99) mg/dL 06/05/20 06/05/20 06/05/20 Range/Units 04:00 04:00 04:03 RBC 3.01 L (4.30-5.90) m/uL Hgb 8.8 L (13.0-17.5) gm/dL Hct 27.2 L (39.0-53.0) % Plt Count 557 H (150-450) k/uL ABG pH (7.35-7.45) ABG HCO3 (21-25) mmol/L ABG Total CO2 (19-24) mmol/L ABG O2 Saturation (94-97) % Sodium 135 L (137-145) mmol/L Creatinine 0.55 L (0.66-1.25) mg/dL Glucose 128 H (74-99) mg/dL POC Glucose (mg/dL) 124 H (75-99) mg/dL 06/05/20 06/05/20 06/05/20 Range/Units 05:20 05:35 06:10 RBC (4.30-5.90) m/uL Hgb (13.0-17.5) gm/dL Hct (39.0-53.0) % Plt Count (150-450) k/uL ABG pH 7.49 H (7.35-7.45) ABG HCO3 32 H (21-25) mmol/L ABG Total CO2 34 H (19-24) mmol/L ABG O2 Saturation 97.6 H (94-97) % Sodium (137-145) mmol/L Creatinine (0.66-1.25) mg/dL Glucose (74-99) mg/dL POC Glucose (mg/dL) 122 H 112 H (75-99) mg/dL 06/05/20 06/05/20 06/05/20 Range/Units 06:53 09:15 10:15 RBC (4.30-5.90) m/uL Hgb (13.0-17.5) gm/dL Hct (39.0-53.0) % Plt Count (150-450) k/uL ABG pH (7.35-7.45) ABG HCO3 (21-25) mmol/L ABG Total CO2 (19-24) mmol/L ABG O2 Saturation (94-97) % Sodium (137-145) mmol/L Creatinine (0.66-1.25) mg/dL Glucose (74-99) mg/dL POC Glucose (mg/dL) 133 H 115 H 116 H (75-99) mg/dL Microbiology - Last 24 Hours (Table) 12/11/20 08:40 Gram Stain - Final Sputum Sputum Culture - Final Serratia marcescens - Imaging and Cardiology Chest x-ray: report reviewed, image reviewed Assessment and Plan Assessment: 1. Unstable angina, severe calcific 3 vessel coronary artery disease, status post three-vessel CABG 2. Recent stroke in November 2019 with continued short-term memory loss and impulsivity 3. Cardiomyopathy with EF 45-50% 4. Hypertension 5. Hyperlipidemia 6. Insulin-dependent diabetes with preoperative hemoglobin A1c 8% 7. Asthma 8. Previous tobacco dependence with preoperative FEV1 75% of predicted 9. Family history of premature coronary artery disease with father diagnosed less than 60 years old. 10. Postoperative acute blood loss anemia and thrombocytopenia, expected 11. Acute hypoxic respiratory failure requiring reintubation, unexpected 12. Metabolic alkalosis, hypokalemia 13. Malnutrition, s/p PEG tube placement 14. Prolonged mechanical ventilation, s/p tracheostomy placement Plan: 1. Continue aspirin, statin, Plavix, beta sarah therapy down PEG tube. 2. Ventilator managment, bronchodilators per pulmonology. Wean as tolerated, continue CPAP trial 3. Will monitor daily labs and x-rays. Electrolyte replacement per protocol. We will give Lasix 40 mg IV push 1 4. GI/DVT prophylaxis 5. Pain control with current medication regimen 6. Insulin management per Dr. Tafoya 7. Restart tube feedings, restart meds thru PEG tomorrow 8. Strict accurate intake and output, daily weight 9. Limit IV sedation as much as possible. Continue Seroquel, start Clonopin 10. Reorient as needed. Work towards being able to remove restraints 11. Social work/case management on consult for discharge planning, patient will need LTAC, authorization and progress 12. More recommendations to follow based on patient's progress Time with Patient: Greater than 30
--- NOTE | 2020-06-05 10:51 | P.PN ---
Subjective Progress Note Date: 06/05/20 CHIEF COMPLAINT: Patient is status post CABG HISTORY OF PRESENT ILLNESS: Patient remains in the ICU. He is intubated and sedated. Patient is status post PEG tube placement. Patient is status post tracheostomy placement with Dr. Boone. Apparently patient pulled out his PEG tube over the weekend. PEG tube was reinserted by Dr. Zamora on 06/03/2020. Patient currently on CPAP and undergoing weaning trial today. Afebrile. WBC 9.7. Tube feedings are scheduled to be restarted today. PHYSICAL EXAM: VITAL SIGNS: Reviewed. GENERAL: Well-developed in no acute distress. HEENT: No sclera icterus. Extraocular movements grossly intact. Moist buccal mucosa. Head is atraumatic, normocephalic. ABDOMEN: Soft. Nondistended. Nontender. NEUROLOGIC: Intubated ASSESSMENT: 1. Coronary artery disease status post three-vessel CABG 2. Severe protein calorie malnutrition status post PEG tube placement PLAN: -Continue supportive care -Resume tube feedings Physician Mess Attendant Crew note has been reviewed by physician. Signing provider agrees with the documented findings, assessment, and plan of care. Objective - Vital Signs Vital signs: Vital Signs Temp 98.3 F 06/05/20 08:00 Pulse 70 06/05/20 10:32 Resp 16 06/05/20 10:00 BP 149/72 06/05/20 10:00 Pulse Ox 97 06/05/20 10:00 Intake & Output 06/04/20 06/05/20 06/05/20 18:59 06:59 18:59 Intake Total 659.787 849.953 214.418 Output Total 350 0 Balance 659.787 499.953 214.418 Weight 87.412 kg 87.8 kg Intake: IV 600 700 200 LR 600 600 200 Levofloxacin 500Mg-D5w 100 Pmx 500 mg In Dextrose/ Water 1 100ml.bag @ 100 mls/hr IVPB Q24H [facility] Rx#: [id number] Intake, IV Titration 59.787 149.953 14.418 Amount Dexmedetomidine/0.9% NaCl 26.22 100 (Pmx) 400 mcg In Empty Bag 1 bag @ 0.2 MCG/KG/HR 4.37 mls/hr IV .[id number] [facility] Rx#:[id number] Insulin Regular 100 unit 33.567 49.953 14.418 In Sodium Chloride 0.9% 100 ml @ Per Protocol IV .Q0M [facility] Rx#:[id number] Output: Urine 350 0 Other: Voiding Method Urinal Urinal Diaper Diaper Incontinent Incontinent # Voids 1 0 # Bowel Movements 1 ABP, PAP, CO, CI - Last Documented Arterial Blood Pressure 103/42 Pulmonary Artery Pressure 32/15 Cardiac Output 4.4 Cardiac Index 2.2 - Labs CBC & Chem 7: 06/05/20 04:00 06/05/20 04:00 Labs: Abnormal Lab Results - Last 24 Hours (Table) 06/04/20 06/04/20 06/04/20 Range/Units 11:11 12:30 13:00 RBC (4.30-5.90) m/uL Hgb (13.0-17.5) gm/dL Hct (39.0-53.0) % Plt Count (150-450) k/uL ABG pH (7.35-7.45) ABG HCO3 (21-25) mmol/L ABG Total CO2 (19-24) mmol/L ABG O2 Saturation (94-97) % Sodium (137-145) mmol/L Creatinine (0.66-1.25) mg/dL Glucose (74-99) mg/dL POC Glucose (mg/dL) 109 H 113 H 117 H (75-99) mg/dL 06/04/20 06/04/20 06/04/20 Range/Units 14:02 14:52 16:04 RBC (4.30-5.90) m/uL Hgb (13.0-17.5) gm/dL Hct (39.0-53.0) % Plt Count (150-450) k/uL ABG pH (7.35-7.45) ABG HCO3 (21-25) mmol/L ABG Total CO2 (19-24) mmol/L ABG O2 Saturation (94-97) % Sodium (137-145) mmol/L Creatinine (0.66-1.25) mg/dL Glucose (74-99) mg/dL POC Glucose (mg/dL) 130 H 133 H 114 H (75-99) mg/dL 06/04/20 06/04/20 06/04/20 Range/Units 17:04 18:04 18:46 RBC (4.30-5.90) m/uL Hgb (13.0-17.5) gm/dL Hct (39.0-53.0) % Plt Count (150-450) k/uL ABG pH (7.35-7.45) ABG HCO3 (21-25) mmol/L ABG Total CO2 (19-24) mmol/L ABG O2 Saturation (94-97) % Sodium (137-145) mmol/L Creatinine (0.66-1.25) mg/dL Glucose (74-99) mg/dL POC Glucose (mg/dL) 118 H 129 H 154 H (75-99) mg/dL 06/04/20 06/04/20 06/04/20 Range/Units 20:06 21:19 22:11 RBC (4.30-5.90) m/uL Hgb (13.0-17.5) gm/dL Hct (39.0-53.0) % Plt Count (150-450) k/uL ABG pH (7.35-7.45) ABG HCO3 (21-25) mmol/L ABG Total CO2 (19-24) mmol/L ABG O2 Saturation (94-97) % Sodium (137-145) mmol/L Creatinine (0.66-1.25) mg/dL Glucose (74-99) mg/dL POC Glucose (mg/dL) 133 H 119 H 113 H (75-99) mg/dL 06/04/20 06/05/20 06/05/20 Range/Units 23:14 00:04 01:50 RBC (4.30-5.90) m/uL Hgb (13.0-17.5) gm/dL Hct (39.0-53.0) % Plt Count (150-450) k/uL ABG pH (7.35-7.45) ABG HCO3 (21-25) mmol/L ABG Total CO2 (19-24) mmol/L ABG O2 Saturation (94-97) % Sodium (137-145) mmol/L Creatinine (0.66-1.25) mg/dL Glucose (74-99) mg/dL POC Glucose (mg/dL) 152 H 153 H 139 H (75-99) mg/dL 06/05/20 06/05/2006/05/20 Range/Units 04:00 04:00 04:03 RBC 3.01 L (4.30-5.90) m/uL Hgb 8.8 L (13.0-17.5) gm/dL Hct 27.2 L (39.0-53.0) % Plt Count 557 H (150-450) k/uL ABG pH (7.35-7.45) ABG HCO3 (21-25) mmol/L ABG Total CO2 (19-24) mmol/L ABG O2 Saturation (94-97) % Sodium 135 L (137-145) mmol/L Creatinine 0.55 L (0.66-1.25) mg/dL Glucose 128 H (74-99) mg/dL POC Glucose (mg/dL) 124 H (75-99) mg/dL 06/05/20 06/05/20 06/05/20 Range/Units 05:20 05:35 06:10 RBC (4.30-5.90) m/uL Hgb (13.0-17.5) gm/dL Hct (39.0-53.0) % Plt Count (150-450) k/uL ABG pH 7.49 H (7.35-7.45) ABG HCO3 32 H (21-25) mmol/L ABG Total CO2 34 H (19-24) mmol/L ABG O2 Saturation 97.6 H (94-97) % Sodium (137-145) mmol/L Creatinine (0.66-1.25) mg/dL Glucose (74-99) mg/dL POC Glucose (mg/dL) 122 H 112 H (75-99) mg/dL 06/05/20 06/05/20 06/05/20 Range/Units 06:53 09:15 10:15 RBC (4.30-5.90) m/uL Hgb (13.0-17.5) gm/dL Hct (39.0-53.0) % Plt Count (150-450) k/uL ABG pH (7.35-7.45) ABG HCO3 (21-25) mmol/L ABG Total CO2 (19-24) mmol/L ABG O2 Saturation (94-97) % Sodium (137-145) mmol/L Creatinine (0.66-1.25) mg/dL Glucose (74-99) mg/dL POC Glucose (mg/dL) 133 H 115 H 116 H (75-99) mg/dL Microbiology - Last 24 Hours (Table) 06/02/20 08:40 Gram Stain - Final Sputum Sputum Culture - Final Serratia marcescens
[2020-06-05] MEDS: INSULIN REGULAR 100 UNIT in SODIUM CHLORIDE 0.9% 100 ML IV SCH (11:06)
[2020-06-05 11:11] LABS: Glucose,Whole Blood 116 mg/dL (75-99)
--- NOTE | 2020-06-05 11:11 | P.PN ---
Subjective Progress Note Date: 06/05/20 Principal diagnosis: COVID 19 pneumonia 76-year-old male patient admitted on 05/16/2024 and acute COVID19 related pneumonia. The patient developed acute hypoxic respiratory failure. The patient got transferred to the intensive care unit and the patient is currently requiring high flow oxygen at 60 L per minute nasal cannula, 90% Fio2 and 100 NRB. His chest x-ray showing diffuse bilateral pulmonary infiltrates consistent with COVID 19 related pneumonia. He has completed a five-day course of Remdesivir and the patient is on Steroids. The patient on IV Solu-Medrol 60 mg IV push every 6 hours. The patient was also found to have pseudomonas aeruginosa in the sputum and the patient purulent sputum production currently on antibiotics. The patient is currently on IV cefepime. The CT angiogram was negative for pulmonary embolism. The patient's history of obesity, hy pertension, diabetes mellitus and acid reflux. The patient is on anticoagulation with Eliquis 5 mg by mouth twice a day. The patient on Symbicort 2 puffs twice a day and albuterol HFA on a when necessary basis. The patient is on Levemir insulin 20 units daily in addition to NovoLog mix 7030 20 units at nighttime and 30 units in the morning. The patient is also on Actos 30 mg at bedtime. Note that the procalcitonin level is at 0.08.The chest x-rays essentially the same. There is still diffuse bilateral pulmonary infiltrates, mainly in the peripheries and more so on the right compared to the left and is unchanged compared to yesterday's chest x-ray. Oxygenation is unchanged. Clinically, he is still the same. He is slightly confused and his baseline level of alertness is or OA2. Urine output is in order of 30 mL an hour and the patient is receiving IV fluids in the form of normal saline at the rate of 20 mL an hour. Oral intake is quite minimal at this point in time on today's evaluation of 05/30/2020, the patient is not showing any progress. In fact there may be some worsening. He is very much lethargic. Is unable to swallow. He is essentially laying down in bed and has minimal amount of conversation. He seems to be disoriented. He is on high flow oxygen 6 L with an FiO2 of 90% in addition to 100% nonrebreather facemask. Chest x-ray showing diffuse bilateral pulmonary infiltrates consistent with bilateral pneumonia. The patient is on IV Solu-Medrol. He completed Remdesivir and he also still less than plasma. We're quite concerned about his respiratory status. He is a full code for now. He is in atrial fibrillation and the rate is controlled for now. His blood sugars are controlled with NovoLog mix 7030 20 units at nighttime and 30 units in the morning. He is also taking Actos. He is also on empiric antibiotic coverage with IV cefepime as the patient will pseudomonas in his sputum. He is afebrile. His LDH is 2003 and his CRP is 9.8. on 05/31/2020, the patient is less lethargic and more awake. He is having some few conversations with me. He was able to follow simple commands. He is profoundly weak. He remains on 60 L with an FiO2 of 80% and 100% nonrebreather facemask. Yesterday, he was able to pass a swallow evaluation. He was given some diet. This was encouraging and I did not have the need to insert an NG tube on him. He has a congested cough. No significant sputum production. He remains on IV cefepime regarding pseudomonas in the sputum. Chest x-ray shows improvement in the left lung infiltration. The right lung is still consolidated actively. He is weak. He seems to be much better spirits for now.He is on IV Solu-Medrol 60 mg every 6 hours. He is also on Lasix 40 mg on a daily basis. He remains on anticoagulation with Eliquis regarding his atrial fibrillation 5 mg by mouth twice a day. On today's evaluation of 06/01/2020, the patient is feeling very much depressed. He is stating that he set up with his condition and he is ready to go and diet. He is a bit tearful also. I was able to get him off the 100% on a beta facemask and currently is only on high flow oxygen at 60 L with an FiO2 of 80%. His pulse ox is above 88%. He is able to swallow. He has a in front of him. His oral intake is minimal or lower this point in time. He has no significant cough. He is a bit lethargic. No fever. No nausea. No vomiting. No abdominal pain. He remains on IV cefepime. Chest x-ray showing some limited improvement in the aeration bilaterally. There is however the excess amount of consolidation. The patient remains on IV Solu-Medrol. He is still in a controlled atrial fibrillation and the patient is on long-term anticoagulation with Eliquis 5 mg by mouth twice a day. He is also taking the Lasix doses IV. Blood sugars are being controlled with NovoLog 7030 minutes 20 in the evening and 30 units in the morning. He is also on Actos. on 06/02/2020, the patient is on 60 L with an 80% FiO2. On the monitor, his pulse ox is 92%. I think he should be able to wean down further. He was feeling quite depressed yesterday. It added Lexapro to his regimen. He remains on IV cefepime. He remains on Eliquis 5 mg by mouth twice a day. He remains on IV Decadron. His chest x-ray is showing some improvement/on the right side. The patient is much improved in terms of his energy level and his ability to communicate and swallow foods. No aspiration. o nausea. No vomiting. No diarrhea. His cardiac rhythm as atrial fibrillation and the rate is controlled for now. He is afebrile.tthe LDH is down to 1545 and a CRP level is down to 7.8. On 06/03/2022 patient remains on 55 L with an FiO2 of 90% and he is also utilizing 100% nonrebreather facemask. He has a congested cough. He was given Lasix without any improvement. His chest x-ray still showing diffuse bilateral pulmonary infiltrates, unchanged from yesterday. He is a bit lethargic. He had T is unresponsive. He is awake. He is able to cough. At times is bringing up some sputum. No fever. No chills. His LDH is gradually improving. The LDH is down to 1406 she is lower and the patient's CRP level is down to 50.8. The pro-calcitonin level is low. The patient is on Decadron. The patient is on daily Lasix. The patient remains in a adequate fluid balance. He remains in atrial fibrillation. He is taking oral intake. He is able to swallow adequately. No nausea. No vomiting. No emesis. On 06/04/2020, patient is on a high flow oxygen at 60 L and an FiO2 of 90%. He was briefly taken off the 100% nonrebreather yesterday. He did well for a while. Subsequently, he desaturated and had to be placed back. No chest x-ray from today. Blood work from today shows no major abnormalities. The LDH level is 1419 100 comparable to yesterday. CRP level is high at 65.8. Renal function stable with a creatinine of 0.8. The patient is on Decadron. He is still vocal. He communicates. No altered mentation. He was bringing up some sputum. Note that the previous sputum culture was positive for Pseudomonas and the patient was started on IV cefepime. Diflucan was also added by jay hoffamn for oropharyngeal candidiasis. The patient remains in atrial fibrillation. No improvement in his condition. He is at a standstill in terms of his colon 19 related pneumonia. He is able to swallow. Oral intake remains low and the patient is taking around 20% of his caloric intake. He was started on Lexapro for some underlying low more than depression. On 06/05/2020 patient seen in follow-up in the intensive care unit, he remains on high flow oxygen per Airvo at 60 l, and Fio2 of 90%, in addition to 100% nonrebreather, with a pulse ox of 93%. Patient has received a course of Remdes ivir, remains on Decadron, and received 1 unit of normal less than plasma. He was found to have a pseudomonal infection in the sputum, and he remains on cefepime for that, in addition to the rectus, ID service is following. His been afebrile,, dynamically stable, he is on IV 0.8 normal saline at a rate of 50 ML per hour. He remains on Decadron 6 mg daily, she is on Robitussin, Pepcid, Jovi E, zinc, vitamin D, on Eliquis for anticoagulation. He is lethargic, but arousable, denies any acute distress, his chest x-ray today shows a patchy infiltrates throughout both lungs right greater than the left, slightly improved. No complaints of chest discomfort, has had no nausea vomiting or diarrhea, no abdominal pain, his labs 7 reviewed, showing white blood cell count of 12, hemoglobin of 12.7, elected lites were within normal limits, BUN of 30 and creatinine 0.7 Objective - Vital Signs Vital signs: Vital Signs Temp 98.3 F 06/05/20 08:00 Pulse 70 06/05/20 10:32 Resp 16 06/05/20 10:00 BP 149/72 06/05/20 10:00 Pulse Ox 97 06/05/20 10:00 Intake & Output 06/04/20 06/05/20 06/05/20 18:59 06:59 18:59 Intake Total 659.787 849.953 268.460 Output Total 350 0 Balance 659.787 499.953 268.460 Weight 87.412 kg 87.8 kg Intake: IV 600 700 200 LR 600 600 200 Levofloxacin 500Mg-D5w 100 Pmx 500 mg In Dextrose/ Water 1 100ml.bag @ 100 mls/hr IVPB Q24H [facility] Rx#: [id number] Intake, IV Titration 59.787 149.953 68.460 Amount Dexmedetomidine/0.9% NaCl 26.22 100 54.042 (Pmx) 400 mcg In Empty Bag 1 bag @ 0.2 MCG/KG/HR 4.37 mls/hr IV .[id number] [facility] Rx#:[id number] Insulin Regular 100 unit 33.567 49.953 14.418 In Sodium Chloride 0.9% 100 ml @ Per Protocol IV .Q0M [facility] Rx#:[id number] Output: Urine 350 0 Other: Voiding Method Urinal Urinal Diaper Diaper Incontinent Incontinent # Voids 1 0 # Bowel Movements 1 ABP, PAP, CO, CI - Last Documented Arterial Blood Pressure 103/42 Pulmonary Artery Pressure 32/15 Cardiac Output 4.4 Cardiac Index 2.2 - Exam GENERAL EXAM: Drowsy, but easily arousable to verbal stimulation, on Airvo 60 L, and FiO2 of 90%, in addition to 100% nonrebreather mask with a pulse ox of 93% comfortable in no apparent distress. HEAD: Normocephalic/atraumatic. EYES: Normal reaction of pupils, equal size. Conjunctiva pink, sclera white. NOSE: Clear with pink turbinates. THROAT: No erythema or exudates. NECK: No masses, no JVD, no thyroid enlargement, no adenopathy. CHEST: No chest wall deformity. Symmetrical expansion. LUNGS: Equal air entry with no crackles, wheeze, rhonchi or dullness. CVS: Regular rate and rhythm, normal S1 and S2, no gallops, no murmurs, no rubs ABDOMEN: Soft, nontender. No hepatosplenomegaly, normal bowel sounds, no guarding or rigidity. EXTREMITIES: No clubbing, no edema, no cyanosis, 2+ pulses and upper and lower extremities. MUSCULOSKELETAL: Muscle strength and tone normal. SPINE: No scoliosis or deformity SKIN: No rashes CENTRAL NERVOUS SYSTEM: Alert and oriented -3. No focal deficits, tone is normal in all 4 extremities. - Labs CBC & Chem 7: 06/05/20 04:00 06/05/20 04:00 Labs: Abnormal Lab Results - Last 24 Hours (Table) 06/04/20 06/04/20 06/04/20 Range/Units 11:11 12:30 13:00 RBC (4.30-5.90) m/uL Hgb (13.0-17.5) gm/dL Hct (39.0-53.0) % Plt Count (150-450) k/uL ABG pH (7.35-7.45) ABG HCO3 (21-25) mmol/L ABG Total CO2 (19-24) mmol/L ABG O2 Saturation (94-97) % Sodium (137-145) mmol/L Creatinine (0.66-1.25) mg/dL Glucose (74-99) mg/dL POC Glucose (mg/dL) 109 H 113 H 117 H (75-99) mg/dL 06/04/20 06/04/20 06/04/20 Range/Units 14:02 14:52 16:04 RBC (4.30-5.90) m/uL Hgb (13.0-17.5) gm/dL Hct (39.0-53.0) % Plt Count (150-450) k/uL ABG pH (7.35-7.45) ABG HCO3 (21-25) mmol/L ABG Total CO2 (19-24) mmol/L ABG O2 Saturation (94-97) % Sodium (137-145) mmol/L Creatinine (0.66-1.25) mg/dL Glucose (74-99) mg/dL POC Glucose (mg/dL) 130 H 133 H 114 H (75-99) mg/dL 06/04/20 06/04/20 06/04/20 Range/Units 17:04 18:04 18:46 RBC (4.30-5.90) m/uL Hgb (13.0-17.5) gm/dL Hct (39.0-53.0) % Plt Count (150-450) k/uL ABG pH (7.35-7.45) ABG HCO3 (21-25) mmol/L ABG Total CO2 (19-24) mmol/L ABG O2 Saturation (94-97) % Sodium (137-145) mmol/L Creatinine (0.66-1.25) mg/dL Glucose (74-99) mg/dL POC Glucose (mg/dL) 118 H 129 H 154 H (75-99) mg/dL 06/04/20 06/04/20 06/04/20 Range/Units 20:06 21:19 22:11 RBC (4.30-5.90) m/uL Hgb (13.0-17.5) gm/dL Hct (39.0-53.0) % Plt Count (150-450) k/uL ABG pH (7.35-7.45) ABG HCO3 (21-25) mmol/L ABG Total CO2 (19-24) mmol/L ABG O2 Saturation (94-97) % Sodium (137-145) mmol/L Creatinine (0.66-1.25) mg/dL Glucose (74-99) mg/dL POC Glucose (mg/dL) 133 H 119 H 113 H (75-99) mg/dL 06/04/20 06/05/20 06/05/20 Range/Units 23:14 00:04 01:50 RBC (4.30-5.90) m/uL Hgb (13.0-17.5) gm/dL Hct (39.0-53.0) % Plt Count (150-450) k/uL ABG pH (7.35-7.45) ABG HCO3 (21-25) mmol/L ABG Total CO2 (19-24) mmol/L ABG O2 Saturation (94-97) % Sodium (137-145) mmol/L Creatinine (0.66-1.25) mg/dL Glucose (74-99) mg/dL POC Glucose (mg/dL) 152 H 153 H 139 H (75-99) mg/dL 06/05/20 06/05/20 06/05/20 Range/Units 04:00 04:00 04:03 RBC 3.01 L (4.30-5.90) m/uL Hgb 8.8 L (13.0-17.5) gm/dL Hct 27.2 L (39.0-53.0) % Plt Count 557 H (150-450) k/uL ABG pH (7.35-7.45) ABG HCO3 (21-25) mmol/L ABG Total CO2 (19-24) mmol/L ABG O2 Saturation (94-97) % Sodium 135 L (137-145) mmol/L Creatinine 0.55 L (0.66-1.25) mg/dL Glucose 128 H (74-99) mg/dL POC Glucose (mg/dL) 124 H (75-99) mg/dL 06/05/20 06/05/20 06/05/20 Range/Units 05:20 05:35 06:10 RBC (4.30-5.90) m/uL Hgb (13.0-17.5) gm/dL Hct (39.0-53.0) % Plt Count (150-450) k/uL ABG pH 7.49 H (7.35-7.45) ABG HCO3 32 H (21-25) mmol/L ABG Total CO2 34 H (19-24) mmol/L ABG O2 Saturation 97.6 H (94-97) % Sodium (137-145) mmol/L Creatinine (0.66-1.25) mg/dL Glucose (74-99) mg/dL POC Glucose (mg/dL) 122 H 112 H (75-99) mg/dL 06/05/20 06/05/20 06/05/20 Range/Units 06:53 09:15 10:15 RBC (4.30-5.90) m/uL Hgb (13.0-17.5) gm/dL Hct (39.0-53.0) % Plt Count (150-450) k/uL ABG pH (7.35-7.45) ABG HCO3 (21-25) mmol/L ABG Total CO2 (19-24) mmol/L ABG O2 Saturation (94-97) % Sodium (137-145) mmol/L Creatinine (0.66-1.25) mg/dL Glucose (74-99) mg/dL POC Glucose (mg/dL) 133 H 115 H 116 H (75-99) mg/dL Microbiology - Last 24 Hours (Table) 06/02/20 08:40 Gram Stain - Final Sputum Sputum Culture - Final Serratia marcescens Assessment and Plan Plan: #1. Acute hypoxic respiratory failure related to COVID 19 pneumonitis, which has progressed since admission, and patient is currently on AIRVO at 60 L and FiO2 of 90%, ration continues to require 100% nonrebreather facemask to showed a saturation above 90%. His chest x-ray still from yesterday was still showing diffuse bilateral pulmonary infiltrates, unchanged compared to earlier chest x- rays.. Patient has completed Remdesivir course on 05/20/2020 and received convalescent immunoglobulin and the patient is on IV Decadron. She is also on IV cefepime. The sputum has shown pseudomonas aeruginosa. The pro-calcitonin level is low. LDH level continues to be elevated. CRP level is also elevated. #2. Increased d-dimer of 18 and then drop down to 11 and then down to 3., patient has been on Eliquis, CTA chest showed no evidence of pulmonary embolism #3. Diabetes mellitus type 2, on Levemir and sliding scale #4. GERD/reflux #5. Hyperlipidemia #6. History of hypertension #7. Obesity # 8 Paroxysmal atrial fibrillation current rhythm is sinus and the patient is on anticoagulation with Eliquis. #9 depression Plan: Current medical treatment, continue antibiotics, continue breathing treatments, patient has been afebrile, still requiring significant amount of oxygen, today's chest x-ray has been reviewed, showing some improvement in aeration bilaterally. Continue oral steroids, continue oral anticoagulation, vitamins, we will continue to closely monitor in the intensive care unit I performed a history & physical examination of the patient and discussed their management with my nurse practitioner, Ade Pastrana. I reviewed the nurse practitioner's note and agree with the documented findings and plan of care. Lung sounds are positive for diminished breath sounds. The findings and the impression was discussed with the patient. I attest to the documentation by the nurse practitioner. Time with Patient: Less than 30
--- NOTE | 2020-06-05 11:17 | P.PN ---
Subjective Progress Note Date: 06/05/20 Principal diagnosis: Status post CABG, postoperative day #14. 74-year-old male patient with post four-vessel bypass surgery. The patient is postop day #7 the patient underwent DOOLEY to LAD and saphenous vein graft to obtuse marginal and PDA. The patient has cardiomyopathy with ejection fraction of 45%. The patient has insulin-dependent diabetes mellitus and the patient has a previous history of CVA including with a short-term memory loss and impulsivity. Postextubation and currently the patient remains on a mechanical ventilator. His cardiac rhythm is sinus. He is hemodynamically stable. The patient remains on assist control mode of ventilation at the rate of 16 with a tidal volume of 450 and FiO2 of 25% and a PEEP of 5. He is post exhibition insertion and the patient will be started on feeding for nutritional support. Sedation is with propofol at a rate of 30mcg per KG per minute and insulin drip is running 4U units an hour for blood sugar control. Chest x-ray showing some retrocardiac infiltration and left basilar airspace disease. The patient is cur rently on Levaquin as an empiric antibiotic coverage. The patient is on DuoNeb nebulized treatments around the clock, aspirin and Plavix and the patient is also on metoprolol 25 mg by mouth twice a day. The sputum culture has shown no growth. Urine cultures no growth. A CAT scan of the brain that showed no evidence of any acute intracranial hemorrhage or midline shift. This is unchanged compared to previous CT if the brain of November 2019. The blood gases from today showed a pH of 7.5 with a pCO2 of 40 and pO2 of 79. Peak airway pressures nonelevated at 22. X-ray showing cardiomegaly. If she was in a good location. The patient has pulmonary vessel congestion. There is also bowel loops on the right hemidiaphragm. There is also volume loss and the patient is smaller lung volumes. The patient was given a dose of Lasix 40 mg of push yesterday. His net fluid balance for yesterday is negative 255 mL. urine output is in order of 30-60 mL an hour. Patient is also on Seroquel 50 mg by mouth twice a day. He is on Levemir insulin was introduced for blood sugar control. Patient was reevaluated today on 06/05/20, patient is now postoperative day #14. Remains on mechanical ventilation, his ventilator settings are assist control rate of 16, volume is 400 FiO2 is 40% PEEP of 5. Patient remains on Precedex at 0.4 mg/kg/h, remains on lactated Ringer's at 50 mL per hour. And he is on insulin at 4.5 units per hour. Patient is status post CABG on 05/22. Extubated on 05/22. Reintubated on 05/25 extubated on 05/30 reintubated 05/30 underwent tracheostomy on 05/31 PEG tube placement on 05/31 and his PEG tube had to be replaced again on 06/03 because he pulled it off. Patient is arousable, but gets agitated easily Precedex seems to be helping significantly. Keeps the patient called, patient was also placed on multiple medications for his anxiety and extreme agitation, yet to be started today via PEG tube. Chest x-ray showed cardiomegaly and small bilateral pleural effusions. Left more so than right. CBC showed WBC 9.7 hemoglobin 8.8. ABG showed a pO2 of 84 pCO2 of 42 pH of 7.49 basic metabolic profile is normal renal profile is normal. Last pro-calcitonin was 0.08, low. Objective - Vital Signs Vital signs: Vital Signs Temp 98.3 F 06/05/20 08:00 Pulse 73 06/05/20 11:00 Resp 32 H 06/05/20 11:00 BP 144/71 06/05/20 11:00 Pulse Ox 97 06/05/20 11:00 Intake & Output 06/04/20 06/05/20 06/05/20 18:59 06:59 18:59 Intake Total 659.787 849.953 318.460 Output Total 350 0 Balance 659.787 499.953 318.460 Weight 87.412 kg 87.8 kg Intake: IV 600 700 250 LR 600 600 250 Levofloxacin 500Mg-D5w 100 Pmx 500 mg In Dextrose/ Water 1 100ml.bag @ 100 mls/hr IVPB Q24H [facility] Rx#: [id number] Intake, IV Titration 59.787 149.953 68.460 Amount Dexmedetomidine/0.9% NaCl 26.22 100 54.042 (Pmx) 400 mcg In Empty Bag 1 bag @ 0.2 MCG/KG/HR 4.37 mls/hr IV .[id number] [facility] Rx#:[id number] Insulin Regular 100 unit 33.567 49.953 14.418 In Sodium Chloride 0.9% 100 ml @ Per Protocol IV .Q0M [facility] Rx#:[id number] Output: Urine 350 0 Other: Voiding Method Urinal Urinal Diaper Diaper Incontinent Incontinent # Voids 1 0 # Bowel Movements 1 ABP, PAP, CO, CI - Last Documented Arterial Blood Pressure 103/42 Pulmonary Artery Pressure 32/15 Cardiac Output 4.4 Cardiac Index 2.2 - Exam GENERAL EXAM: Revealed a 74-year-old white male on mechanical ventilation, tracheostomy is intact, in no distress, maintained on Precedex for extreme agitation. Presently called. HEAD: Normocephalic. Atraumatic. EYES: PERRLA, EOMI, no icterus. NOSE: Unremarkable. Nasal mucosa is normal. THROAT: Tracheostomy is intact and the #8 Shiley. NECK: No neck masses no stridor. CHEST: Symmetrical chest expansion, sternum is stable. Minimal crackles at the bases... CVS: Normal S1 and S2, no S3 gallop ABDOMEN: Soft nontender no megaly no rebound no guarding. SKIN: No rashes no petechiae. CENTRAL NERVOUS SYSTEM: Arousable, gets agitated easily, but called on Precedex. EXTREMITIES: No clubbing edema or cyanosis. - Labs CBC & Chem 7: 06/05/20 04:00 06/05/20 04:00 Labs: Abnormal Lab Results - Last 24 Hours (Table) 06/04/20 06/04/20 06/04/20 Range/Units 11:11 12:30 13:00 RBC (4.30-5.90) m/uL Hgb (13.0-17.5) gm/dL Hct (39.0-53.0) % Plt Count (150-450) k/uL ABG pH (7.35-7.45) ABG HCO3 (21-25) mmol/L ABG Total CO2 (19-24) mmol/L ABG O2 Saturation (94-97) % Sodium (137-145) mmol/L Creatinine (0.66-1.25) mg/dL Glucose (74-99) mg/dL POC Glucose (mg/dL) 109 H 113 H 117 H (75-99) mg/dL 1206/04/20 06/04/20 Range/Units 14:02 14:52 16:04 RBC (4.30-5.90) m/uL Hgb (13.0-17.5) gm/dL Hct (39.0-53.0) % Plt Count (150-450) k/uL ABG pH (7.35-7.45) ABG HCO3 (21-25) mmol/L ABG Total CO2 (19-24) mmol/L ABG O2 Saturation (94-97) % Sodium (137-145) mmol/L Creatinine (0.66-1.25) mg/dL Glucose (74-99) mg/dL POC Glucose (mg/dL) 130 H 133 H 114 H (75-99) mg/dL 06/04/20 06/04/20 06/04/20 Range/Units 17:04 18:04 18:46 RBC (4.30-5.90) m/uL Hgb (13.0-17.5) gm/dL Hct (39.0-53.0) % Plt Count (150-450) k/uL ABG pH (7.35-7.45) ABG HCO3 (21-25) mmol/L ABG Total CO2 (19-24) mmol/L ABG O2 Saturation (94-97) % Sodium (137-145) mmol/L Creatinine (0.66-1.25) mg/dL Glucose (74-99) mg/dL POC Glucose (mg/dL) 118 H 129 H 154 H (75-99) mg/dL 06/04/20 06/04/20 06/04/20 Range/Units 20:06 21:19 22:11 RBC (4.30-5.90) m/uL Hgb (13.0-17.5) gm/dL Hct (39.0-53.0) % Plt Count (150-450) k/uL ABG pH (7.35-7.45) ABG HCO3 (21-25) mmol/L ABG Total CO2 (19-24) mmol/L ABG O2 Saturation (94-97) % Sodium (137-145) mmol/L Creatinine (0.66-1.25) mg/dL Glucose (74-99) mg/dL POC Glucose (mg/dL) 133 H 119 H 113 H (75-99) mg/dL 06/04/20 06/05/20 06/05/20 Range/Units 23:14 00:04 01:50 RBC (4.30-5.90) m/uL Hgb (13.0-17.5) gm/dL Hct (39.0-53.0) % Plt Count (150-450) k/uL ABG pH (7.35-7.45) ABG HCO3 (21-25) mmol/L ABG Total CO2 (19-24) mmol/L ABG O2 Saturation (94-97) % Sodium (137-145) mmol/L Creatinine (0.66-1.25) mg/dL Glucose (74-99) mg/dL POC Glucose (mg/dL) 152 H 153 H 139 H (75-99) mg/dL 06/05/20 06/05/20 06/05/20 Range/Units 04:00 04:00 04:03 RBC 3.01 L (4.30-5.90) m/uL Hgb 8.8 L (13.0-17.5) gm/dL Hct 27.2 L (39.0-53.0) % Plt Count 557 H (150-450) k/uL ABG pH (7.35-7.45) ABG HCO3 (21-25) mmol/L ABG Total CO2 (19-24) mmol/L ABG O2 Saturation (94-97) % Sodium 135 L (137-145) mmol/L Creatinine 0.55 L (0.66-1.25) mg/dL Glucose 128 H (74-99) mg/dL POC Glucose (mg/dL) 124 H (75-99) mg/dL 06/05/20 06/05/20 06/05/20 Range/Units 05:20 05:35 06:10 RBC (4.30-5.90) m/uL Hgb (13.0-17.5) gm/dL Hct (39.0-53.0) % Plt Count (150-450) k/uL ABG pH 7.49 H (7.35-7.45) ABG HCO3 32 H (21-25) mmol/L ABG Total CO2 34 H (19-24) mmol/L ABG O2 Saturation 97.6 H (94-97) % Sodium (137-145) mmol/L Creatinine (0.66-1.25) mg/dL Glucose (74-99) mg/dL POC Glucose (mg/dL) 122 H 112 H (75-99) mg/dL 06/05/20 06/05/20 06/05/20 Range/Units 06:53 09:15 10:15 RBC (4.30-5.90) m/uL Hgb (13.0-17.5) gm/dL Hct (39.0-53.0) % Plt Count (150-450) k/uL ABG pH (7.35-7.45) ABG HCO3 (21-25) mmol/L ABG Total CO2 (19-24) mmol/L ABG O2 Saturation (94-97) % Sodium (137-145) mmol/L Creatinine (0.66-1.25) mg/dL Glucose (74-99) mg/dL POC Glucose (mg/dL) 133 H 115 H 116 H (75-99) mg/dL Microbiology - Last 24 Hours (Table) 06/02/20 08:40 Gram Stain - Final Sputum Sputum Culture - Final Serratia marcescens Assessment and Plan Assessment: Impression: Status post CABG, postoperative day #14. Acute hypoxic respiratory failure and failure to wean, patient required tracheostomy and PEG tube placement, unexpected. Ischemic cardiomyopathy and LV dysfunction. Ejection fraction 45%. Dyslipidemia. Chronic mild intermittent asthma Type 2 diabetes Tobacco dependence syndrome Previous history of CVA in November 22 020 Benign essential hypertension History of PEG tube placement 2. Recommendation: Continue ventilatory support. Discontinue Precedex and continue Seroquel. Continue assessment for weaning using pressure support of 14 and CPAP. Resume enteral feeding via PEG tube today. Continue GI and DVT prophylaxis. Hemodynamic support if necessary. Continue Klonopin. Patient remains critically ill, not ready to be transferred out of the ICU as long as he is requiring intubation and mechanical ventilation. Critical care time is 35 minutes Time with Patient: Greater than 30
[2020-06-05 12:19] LABS: Glucose,Whole Blood 124 mg/dL (75-99)
[2020-06-05 13:02] LABS: Glucose,Whole Blood 120 mg/dL (75-99)
[2020-06-05 14:00] LABS: Glucose,Whole Blood 118 mg/dL (75-99)
[2020-06-05 15:01] LABS: Glucose,Whole Blood 115 mg/dL (75-99)
--- NOTE | 2020-06-05 15:40 | P.PN ---
Subjective Progress Note Date: 06/05/20 Marcos Perez is a 74 yo M with PMH of CAD, hx CVA with residual dementia, T2DM, HTN, HLD who is admitted s/p CABG. He is doing well today, hemodynamically stable and extubated, upright in chair. His sugars are controlled on insulin drip. Pt remains confused and agitated this morning, unable to remember the reason he is hospitalized and trying to remove lines and refusing oral medications. He has no specific concerns for me today. 05/24/2020 Seroquel initiated yesterday. event decorator and designer remains at bedside Patient's agitation/combativeness /impulsiveness improving-fluctuates. No further Haldol/Ativan since yesterday. Mediastinal chest tube removed. Currently on Cleveprex drip. Blood sugars controlled. Chest x-ray reporting continued mild pulmonary vascular congestion with slight improvement in bilateral base aeration. Prominent air persists below the right hemidiaphragm. Maintaining O2 sats in the 90s on 2 L nasal cannula. Afebrile, WBC 12.6. 05/25/2020 He remains on seroquel and precedex drip, he has been intermittently agitated pulling at lines and confused. Pt's vitals and glucose are well controlled today. CT head repeated and no interval change. Pt unable to take PO nutrition and enteral feedings started. 05/26/2020 Re-intubated during the night, FiO2 recently decreased to 25%/+5 of PEEP. ABGs noted. Chest x-ray reported improving lung markings with left base infiltrate.Continues on diprovan and small dose of Levophed drips. Tenacious secretions from endotracheal tube. Sputum culture pending. Afebrile. Urine culture pending. 05/29/20 remains vent dependent, FiO2 25%/+5 of PEEP. Continues on diprovan drip. Chest x-ray reporting continued small left effusion with left basilar retrocardiac atelectasis and/or consolidation. IV Levaquin initiated yesterday. Received a dose of Lasix yesterday with 24-hour I&O reflecting a negative fluid balance. T-max 100.1. Covid results pending. Urine and sputum cultures reporting no growth, blood cultures pending. Staff reports midsternal incision site with minimal serous drainage. Telemetry sinus rhythm. Blood sugars controlled on Levemir. PEG tube placed yesterday, tolerated procedure well. Resuming tube feeding today. 05/30/2020 chest x-ray reported no significant change .extubated early this morn ing, unable to tolerate, reintubated. ABGs noted. Maintained on 40% FiO2/+5 of PEEP. Sedated on diprovan drip. Scheduled for tracheostomy tomorrow. Received a dose of Lasix yesterday with 24-hour I&O reflecting nearly a zero balance.Continues on Levaquin. Sputum culture reporting normal respiratory mattie. Urine culture no growth at 18 hours .Blood sugars ranging from 150s to 250s. Received suppository yesterday, no bowel movement, receiving another suppository today. 05/31/2020 remains vent dependent, 40% FiO2/+5 of PEEP. .Scheduled for tracheostomy today. Chest x-ray reporting small bilateral pleural effusions, bibasilar infiltrates. Maintained on diprovan and insulin drips. No pressors. Blood sugars controlled Telemetry sinus rhythm. T-max 100.9, normal WBC. ABGs noted, bicarb 33. 06/05/2020 maintained on vent support with FiO2 40%/+ repeat. Chest x-ray reporting no significant change-low lung volumes, cardiomegaly with moderate central vascular congestion and probable small bilateral pleural effusions .Continues on Precedex and insulin drips. Status post trach and PEG.PEG tube requiring replacement yesterday secondary to patient pulling out. Tolerated procedure well. Significant improvement in agitation on Precedex. Blood sugars controlled. Sputum culture reporting via Serratia marcescens. Currently on Levaquin. Objective - Vital Signs Vital signs: Vital Signs Temp 98.8 F 06/05/20 12:00 Pulse 81 06/05/20 13:00 Resp 32 H 06/05/20 13:00 BP 147/68 06/05/20 13:00 Pulse Ox 97 06/05/20 13:00 Intake & Output 06/04/20 06/05/20 06/05/20 18:59 06:59 18:59 Intake Total 659.787 849.953 487.475 Output Total 350 0 Balance 659.787 499.953 487.475 Weight 87.412 kg 87.8 kg Intake: IV 600 700 400 LR 600 600 400 Levofloxacin 500Mg-D5w 100 Pmx 500 mg In Dextrose/ Water 1 100ml.bag @ 100 mls/hr IVPB Q24H [facility] Rx#: [id number] Intake, IV Titration 59.787 149.953 87.475 Amount Dexmedetomidine/0.9% NaCl 26.22 100 57.975 (Pmx) 400 mcg In Empty Bag 1 bag @ 0.2 MCG/KG/HR 4.37 mls/hr IV .[id number] [facility] Rx#:[id number] Insulin Regular 100 unit 33.567 49.953 29.500 In Sodium Chloride 0.9% 100 ml @ Per Protocol IV .Q0M [facility] Rx#:[id number] Output: Urine 350 0 Other: Voiding Method Urinal Urinal Urinal Diaper Diaper Diaper Incontinent Incontinent Incontinent # Voids 1 1 # Bowel Movements 1 ABP, PAP, CO, CI - Last Documented Arterial Blood Pressure 103/42 Pulmonary Artery Pressure 32/15 Cardiac Output 4.4 Cardiac Index 2.2 - Exam General: sedated and reintubated on mechanical ventilation, via tracheostomy. Eyes: PERRL, conjunctiva normal. HENT: normocephalic, atraumatic Neck: supple, no JVD. Tracheostomy present. Lungs: normal respiratory effort, bilateral bases diminished. Mediastinal incision site clean and dry. CV: Regular rate and rhythm, no murmur. Peripheral pulses 2+ Abdomen: soft, nondistended, no organomegaly, PEG tube present. Umbilical hernia present. Skin: warm and dry. Neuro: Unable to assess at this time secondary to patient intubated and sedated. - Labs CBC & Chem 7: 06/05/20 04:00 06/05/20 04:00 Labs: Abnormal Lab Results - Last 24 Hours (Table) 06/04/20 06/04/20 06/04/20 Range/Units 16:04 17:04 18:04 RBC (4.30-5.90) m/uL Hgb (13.0-17.5) gm/dL Hct (39.0-53.0) % Plt Count (150-450) k/uL ABG pH (7.35-7.45) ABG HCO3 (21-25) mmol/L ABG Total CO2 (19-24) mmol/L ABG O2 Saturation (94-97) % Sodium (137-145) mmol/L Creatinine (0.66-1.25) mg/dL Glucose (74-99) mg/dL POC Glucose (mg/dL) 114 H 118 H 129 H (75-99) mg/dL 06/04/20 06/04/20 06/04/20 Range/Units 18:46 20:06 21:19 RBC (4.30-5.90) m/uL Hgb (13.0-17.5) gm/dL Hct (39.0-53.0) % Plt Count (150-450) k/uL ABG pH (7.35-7.45) ABG HCO3 (21-25) mmol/L ABG Total CO2 (19-24) mmol/L ABG O2 Saturation (94-97) % Sodium (137-145) mmol/L Creatinine (0.66-1.25) mg/dL Glucose (74-99) mg/dL POC Glucose (mg/dL) 154 H 133 H 119 H (75-99) mg/dL 06/04/20 06/04/20 06/05/20 Range/Units 22:11 23:14 00:04 RBC (4.30-5.90) m/uL Hgb (13.0-17.5) gm/dL Hct (39.0-53.0) % Plt Count (150-450) k/uL ABG pH (7.35-7.45) ABG HCO3 (21-25) mmol/L ABG Total CO2 (19-24) mmol/L ABG O2 Saturation (94-97) % Sodium (137-145) mmol/L Creatinine (0.66-1.25) mg/dL Glucose (74-99) mg/dL POC Glucose (mg/dL) 113 H 152 H 153 H (75-99) mg/dL 06/05/20 06/05/20 06/05/20 Range/Units 01:50 04:00 04:00 RBC 3.01 L (4.30-5.90) m/uL Hgb 8.8 L (13.0-17.5) gm/dL Hct 27.2 L (39.0-53.0) % Plt Count 557 H (150-450) k/uL ABG pH (7.35-7.45) ABG HCO3 (21-25) mmol/L ABG Total CO2 (19-24) mmol/L ABG O2 Saturation (94-97) % Sodium 135 L (137-145) mmol/L Creatinine 0.55 L (0.66-1.25) mg/dL Glucose 128 H (74-99) mg/dL POC Glucose (mg/dL) 139 H (75-99) mg/dL 06/05/20 06/05/20 06/05/20 Range/Units 04:03 05:20 05:35 RBC (4.30-5.90) m/uL Hgb (13.0-17.5) gm/dL Hct (39.0-53.0) % Plt Count (150-450) k/uL ABG pH 7.49 H (7.35-7.45) ABG HCO3 32 H (21-25) mmol/L ABG Total CO2 34 H (19-24) mmol/L ABG O2 Saturation 97.6 H (94-97) % Sodium (137-145) mmol/L Creatinine (0.66-1.25) mg/dL Glucose (74-99) mg/dL POC Glucose (mg/dL) 124 H 122 H (75-99) mg/dL 06/05/20 06/05/20 06/05/20 Range/Units 06:10 06:53 09:15 RBC (4.30-5.90) m/uL Hgb (13.0-17.5) gm/dL Hct (39.0-53.0) % Plt Count (150-450) k/uL ABG pH (7.35-7.45) ABG HCO3 (21-25) mmol/L ABG Total CO2 (19-24) mmol/L ABG O2 Saturation (94-97) % Sodium (137-145) mmol/L Creatinine (0.66-1.25) mg/dL Glucose (74-99) mg/dL POC Glucose (mg/dL) 112 H 133 H 115 H (75-99) mg/dL 06/05/20 06/05/20 06/05/20 Range/Units 10:15 11:09 12:18 RBC (4.30-5.90) m/uL Hgb (13.0-17.5) gm/dL Hct (39.0-53.0) % Plt Count (150-450) k/uL ABG pH (7.35-7.45) ABG HCO3 (21-25) mmol/L ABG Total CO2 (19-24) mmol/L ABG O2 Saturation (94-97) % Sodium (137-145) mmol/L Creatinine (0.66-1.25) mg/dL Glucose (74-99) mg/dL POC Glucose (mg/dL) 116 H 116 H 124 H (75-99) mg/dL 06/05/20 06/05/20 06/05/20 Range/Units 13:00 14:00 14:59 RBC (4.30-5.90) m/uL Hgb (13.0-17.5) gm/dL Hct (39.0-53.0) % Plt Count (150-450) k/uL ABG pH (7.35-7.45) ABG HCO3 (21-25) mmol/L ABG Total CO2 (19-24) mmol/L ABG O2 Saturation (94-97) % Sodium (137-145) mmol/L Creatinine (0.66-1.25) mg/dL Glucose (74-99) mg/dL POC Glucose (mg/dL) 120 H 118 H 115 H (75-99) mg/dL Assessment and Plan Assessment: (1) acute hypoxic respiratory failure, requiring reintubation X2. Failure to wean. (2) Status post coronary artery bypass graft Current Visit: Yes Status: Acute Code(s): Z95.1 - PRESENCE OF AORTOCORONARY BYPASS GRAFT SNOMED Code(s): 835425953 (3)Triple vessel coronary artery disease Current Visit: Yes Status: Acute Code(s): I25.10 - ATHSCL HEART DISEASE OF [place] CORONARY ARTERY W/O ANG PCTRS SNOMED Code(s): 043129865 (4) History of CVA with residual deficit Current Visit: Yes Status: Acute Code(s): I69.30 - UNSPECIFIED SEQUELAE OF CEREBRAL INFARCTION SNOMED Code(s): 634697452 (5) Type 2 diabetes mellitus Current Visit: Yes Status: Acute Code(s): E11.9 - TYPE 2 DIABETES MELLITUS WITHOUT COMPLICATIONS SNOMED Code(s): 16241066 (6) Dementia Current Visit: Yes Status: Acute Code(s): F03.90 - UNSPECIFIED DEMENTIA WITHOUT BEHAVIORAL DISTURBANCE SNOMED Code(s): 98600332 (7) Cerebral infarction, remote, resolved Current Visit: No Status: Acute Code(s): Z86.73 - PRSNL HX OF TIA (TIA), AND CEREB INFRC W/O RESID DEFICITS SNOMED Code(s): 878730785 (8) PEG tube placement 2 (9) severe protein calorie malnutrition Plan: Continue current medication regime ,monitoring and symptomatic treatment. ICU management as per freelance court reporter. Resuming tube feedings. Close monitoring of Accu-Cheks. Prognosis guarded given multiple complex medical issues. The impression and plan of care has been dictated as directed. : I performed a history and examination of this patient, discussed the same with the dictator. I agree with the dictator's note ,documented as a scribe. Any additional findings or plans will be noted.
--- NOTE | 2020-06-05 16:26 | PN ---
PROGRESS NOTE Mr. Perez is a 74-year-old male patient with a history of coronary artery disease, triple-vessel disease, ischemic cardiomyopathy, ejection fraction 45%, hypertension and insulin-dependent diabetes who underwent coronary artery bypass grafting with the left internal mammary graft to the LAD, SVG to the first obtuse marginal PDA, left atrial appendectomy, clip ligation in a 35 mm atrial clip. Postoperatively, he has had a blood loss anemia and thrombocytopenia and he has a tracheostomy. He has a baseline lung disease. He underwent a chest tube placement. Following that, and now he underwent a PEG tube placement. On examination, his blood pressure was mildly elevated. He denies any chest discomfort. Blood pressure is 141/71 mmHg, pulse rate in the 70s, afebrile, 98.8 degrees Fahrenheit. Head examination revealed normal tracheostomy tube placed and lungs decreased breath sounds bilaterally. Heart sounds S1, S2 are soft. Extremities are warm. IMPRESSION: Start oral medications once a PEG tube placement was confirmed and if his blood pressure remains elevated, then low-dose MINNA inhibitors may be started. I reviewed his labs. His renal function is normal. BUN is 17, creatinine 0.55, potassium is 4.2. IMPRESSION: Coronary disease, status post coronary artery bypass grafting, mildly elevated blood pressure, status post tracheostomy tube, status post PEG tube placement, history of hypertension, type 2 diabetes. MMODL / IJN: [id number] /
[2020-06-05] MEDS: lisinopriL 5 MG TAB PO SCH (16:48)
[2020-06-05 17:10] LABS: Glucose,Whole Blood 122 mg/dL (75-99)
[2020-06-05] MEDS: METOPROLOL TARTRATE 12.5 MG TAB NG-TUBE SCH (18:35)
[2020-06-05] MEDS: ASPIRIN 325 MG TAB NG-TUBE SCH ×2 (18:35→18:37)
[2020-06-05] MEDS: QUEtiapine 25 MG TAB PO SCH (18:36)
[2020-06-05] MEDS: METOPROLOL TARTRATE 25 MG TAB NG-TUBE SCH (18:36)
[2020-06-05] MEDS: INSULIN ASPART (NovoLOG) 100 UNIT/ML VIAL SQ SCH (18:37)
[2020-06-05 19:04] LABS: Glucose,Whole Blood 145 mg/dL (75-99)
[2020-06-05] MEDS: SENNOSIDES-DOCUSATE SODIUM 1 EACH TAB PO SCH (20:13)
[2020-06-05 20:24] LABS: Glucose,Whole Blood 144 mg/dL (75-99)
[2020-06-05] MEDS: LEVOFLOXACIN 500MG-D5W PMX 500 MG in DEXTROSE/WATER 1 100ML.BAG IVPB SCH (21:45)
[2020-06-05 22:08] LABS: Glucose,Whole Blood 132 mg/dL (75-99)
[2020-06-05 23:59] LABS: Glucose,Whole Blood 153 mg/dL (75-99)
[2020-06-06] MEDS: IPRATROPIUM-ALBUTEROL 3 ML NEB INHALATION SCH ×7 (00:12→23:41)
[2020-06-06 01:06] LABS: Glucose,Whole Blood 136 mg/dL (75-99)
[2020-06-06 02:23] LABS: Glucose,Whole Blood 135 mg/dL (75-99)
[2020-06-06] MEDS: HEPARIN SODIUM,PORCINE 5,000 UNIT/ML 1 ML VIAL SQ SCH ×3 (04:17→20:21)
[2020-06-06 04:26] LABS: Glucose,Whole Blood 108 mg/dL (75-99)
[2020-06-06 04:54] LABS: ABG HCO3 33 mmol/L (21-25); ABG Oxygen Saturation 98.9 % (94-97); ABG PCO2 42 mmHg (35-45); ABG PH 7.51 (7.35-7.45); ABG PO2 96 mmHg (83-108); ABG TCO2 34 mmol/L (19-24); Allen Test Performed? Yes
[2020-06-06 05:21] LABS: HGB 9.1 gm/dL (13.0-17.5); Hypochromasia Slight; MCH 28.9 pg (25.0-35.0); MCHC 32.5 g/dL (31.0-37.0); Mean Platelet Volume 8.5; Platelet Count 530 k/uL (150-450); RBC 3.15 m/uL (4.30-5.90); RDW 14.5 % (11.5-15.5); WBC 10.8 k/uL (3.8-10.6)
[2020-06-06 05:44] LABS: African American GFR (CKD) >90 (>60 ml/min/1.73 sqM); Anion Gap 2 mmol/L; Blood Urea Nitrogen 16 mg/dL (9-20); Calcium 8.1 mg/dL (8.4-10.2); Carbon Dioxide 33 mmol/L (22-30); Chloride 101 mmol/L (98-107); Glucose 113 mg/dL (74-99); Non-African American GFR(CKD) >90 (>60 ml/min/1.73 sqM); Potassium 3.9 mmol/L (3.5-5.1); Sodium 136 mmol/L (137-145)
[2020-06-06 06:19] LABS: Glucose,Whole Blood 169 mg/dL (75-99)
[2020-06-06] MEDS ORDERED: POTASSIUM BICARBONATE/CIT AC 20 MEQ TABLET.EFF NG-TUBE SCH ×2 (07:00→22:00)
--- NOTE | 2020-06-06 07:31 | XR ---
EXAMINATION TYPE: XR chest 1V portable DATE OF EXAM: 06/06/2020 CLINICAL HISTORY: Difficulty breathing progress study. Postoperative cardiac surgery. TECHNIQUE: Single AP portable semiupright view of the chest is obtained. COMPARISON: Chest x-ray from one day earlier and older studies. FINDINGS: Stable tracheostomy tube. Overlying sternal wires and mediastinal clips along with left at rial appendage clip are all redemonstrated. Stable cardiomegaly. Stable low lung volumes with central vascular congestion and left greater than right bibasilar opacities. Osseous structures are intact. Gas prominent bowel presumed colonic loops are partially imaged. IMPRESSION: Low lung volumes and cardiomegaly with mild to moderate central vascular congestion along with small left pleural effusion and left greater than right bibasilar atelectasis and/or infiltrate are all redemonstrated. No significant change from most recent x-ray.
[2020-06-06 09:04] LABS: Glucose,Whole Blood 144 mg/dL (75-99)
[2020-06-06] MEDS ORDERED: FUROSEMIDE 10 MG/ML 4 ML VIAL IV STA (09:15)
--- NOTE | 2020-06-06 09:16 | P.PN ---
Subjective Progress Note Date: 06/06/20 Principal diagnosis: Unstable angina, severe calcific 3 vessel coronary artery disease. Previous medical history of recent stroke in November 2019 with continued short-term memory loss and impulsivity, cardiomyopathy with EF 45-50%, hypertension, hyperlipidemia, insulin-dependent diabetes with preoperative hemoglobin A1c 8%, asthma, previous tobacco dependence with preoperative FEV1 75% of predicted, and family history of premature coronary artery disease with father diagnosed less than 60 years old. POD #15 coronary artery bypass grafting 3 with the left internal mammary artery to the left anterior descending artery, reverse saphenous vein graft off the aorta to the first obtuse marginal artery and the posterior descending artery with endoscopic vein harvesting of the left lower extremity greater saphenous vein, clip ligation of the left atrial appendage with a 35 mm AtriClip and intraoperative transesophageal echocardiogram. Postoperative acute blood loss anemia and thrombocytopenia, expected outcomes given hemodilution and cardiopulmonary bypass pump Acute hypoxic respiratory failure requiring re-intubation, unexpected, likely from inability to clear secretions, prolonged mechanical ventilation POD #9 PEG tube placement POD #6 Tracheostomy placement The patient is laying in the ICU on mechanical ventilation, stable off sedation for 24 hours. Remains in normal sinus rhythm, hemodynamically stable on no pressors. Does open his eyes, follows simple commands. Remains restrained as he is impulsive and does attempt to pull at his trach and PEG. Tube feeding restarted yesterday. Currently on CPAP and tolerating well, was on CPAP for 12 hours yesterday. Sputum culture from June 02 positive for Serratia which is sensitive to Levaquin, has remained afebrile since June 02. No other new concerns Objective - Vital Signs Vital signs: Vital Signs Temp 99.8 F H 06/06/20 08:00 Pulse 94 06/06/20 08:02 Resp 29 H 06/06/20 08:00 BP 113/60 06/06/20 08:00 Pulse Ox 98 06/06/20 08:00 Intake & Output 06/05/20 06/06/20 06/06/20 18:59 06:59 18:59 Intake Total 700.201 687.249 380 Output Total 0 0 Balance 700.201 687.249 380 Weight 90 kg Intake: IV 600 270 20 LR 600 270 20 Intake, IV Titration 100.201 57.249 Amount Dexmedetomidine/0.9% NaCl 57.975 (Pmx) 400 mcg In Empty Bag 1 bag @ 0.2 MCG/KG/HR 4.37 mls/hr IV .[id number] [facility] Rx#:[id number] Insulin Regular 100 unit 42.226 57.249 In Sodium Chloride 0.9% 100 ml @ Per Protocol IV .Q0M [facility] Rx#:[id number] Tube Feeding 270 270 Other 90 90 Output: Urine 0 0 Other: Voiding Method Diaper Diaper Incontinent Incontinent # Voids 0 1 # Bowel Movements 1 ABP, PAP, CO, CI - Last Documented Arterial Blood Pressure 103/42 Pulmonary Artery Pressure 32/15 Cardiac Output 4.4 Cardiac Index 2.2 - Constitutional General appearance: Present: cooperative, no acute distress - Respiratory Details: Lungs sounds diminished bilaterally. Respirations even, nonlabored on mechanical ventilation, currently on CPAP mode with pressure support of 10. ABGs this AM on those settings 7.51/42/96/33/98%/10.0 on 40% FiO2 and 5 of PEEP. 8.0 Shiley tracheostomy present - Cardiovascular Details: S1, S2 present. Regular rate and rhythm, sinus rhythm on telemetry with heart rate in the 80s. Sternum stable. Palpable peripheral pulses bilaterally. No edema present. Heart hugger in place, antiembolism stockings, SCDs present. - Gastrointestinal Gastrointestinal Comment(s): Abdomen soft, nontender, nondistended. Active bowel sounds present 4 quadrants. PEG tube in place, feedings continue. Last BM 06/05/20 per nursing - Genitourinary Genitourinary Comment(s): Incontinent of urine, bladder scans have been less than 300 milliliters - Integumentary Integumentary Comment(s): Skin is warm and dry. Anterior chest incision well approximated. Left lower extremity EVH site well approximated without redness or drainage. PEG tube incision without redness. Trach incision with small amount serous drainage - Neurologic Neurologic: Present: CNII-XII intact - Musculoskeletal Musculoskeletal: Present: strength equal bilaterally - Psychiatric Psychiatric Comment(s): Patient opens his eyes, follows simple commands, moves all extremities, nods and shakes his head appropriately - Allied health notes Allied health notes reviewed: nursing - Labs CBC & Chem 7: 06/06/20 04:00 06/06/20 04:00 Labs: Abnormal Lab Results - Last 24 Hours (Table) 06/05/20 06/05/20 06/05/20 Range/Units 09:15 10:15 11:09 WBC (3.8-10.6) k/uL RBC (4.30-5.90) m/uL Hgb (13.0-17.5) gm/dL Hct (39.0-53.0) % Plt Count (150-450) k/uL ABG pH (7.35-7.45) ABG HCO3 (21-25) mmol/L ABG Total CO2 (19-24) mmol/L ABG O2 Saturation (94-97) % Sodium (137-145) mmol/L Carbon Dioxide (22-30) mmol/L Creatinine (0.66-1.25) mg/dL Glucose (74-99) mg/dL POC Glucose (mg/dL) 115 H 116 H 116 H (75-99) mg/dL Calcium (8.4-10.2) mg/dL 06/05/20 06/05/20 06/05/20 Range/Units 12:18 13:00 14:00 WBC (3.8-10.6) k/uL RBC (4.30-5.90) m/uL Hgb (13.0-17.5) gm/dL Hct (39.0-53.0) % Plt Count (150-450) k/uL ABG pH (7.35-7.45) ABG HCO3 (21-25) mmol/L ABG Total CO2 (19-24) mmol/L ABG O2 Saturation (94-97) % Sodium (137-145) mmol/L Carbon Dioxide (22-30) mmol/L Creatinine (0.66-1.25) mg/dL Glucose (74-99) mg/dL POC Glucose (mg/dL) 124 H 120 H 118 H (75-99) mg/dL Calcium (8.4-10.2) mg/dL 06/05/20 06/05/20 06/05/20 Range/Units 14:59 17:09 19:02 WBC (3.8-10.6) k/uL RBC (4.30-5.90) m/uL Hgb (13.0-17.5) gm/dL Hct (39.0-53.0) % Plt Count (150-450) k/uL ABG pH (7.35-7.45) ABG HCO3 (21-25) mmol/L ABG Total CO2 (19-24) mmol/L ABG O2 Saturation (94-97) % Sodium (137-145) mmol/L Carbon Dioxide (22-30) mmol/L Creatinine (0.66-1.25) mg/dL Glucose (74-99) mg/dL POC Glucose (mg/dL) 115 H 122 H 145 H (75-99) mg/dL Calcium (8.4-10.2) mg/dL 06/05/20 06/05/20 06/05/20 Range/Units 20:23 22:07 23:57 WBC (3.8-10.6) k/uL RBC (4.30-5.90) m/uL Hgb (13.0-17.5) gm/dL Hct (39.0-53.0) % Plt Count (150-450) k/uL ABG pH (7.35-7.45) ABG HCO3 (21-25) mmol/L ABG Total CO2 (19-24) mmol/L ABG O2 Saturation (94-97) % Sodium (137-145) mmol/L Carbon Dioxide (22-30) mmol/L Creatinine (0.66-1.25) mg/dL Glucose (74-99) mg/dL POC Glucose (mg/dL) 144 H 132 H 153 H (75-99) mg/dL Calcium (8.4-10.2) mg/dL 06/06/20 06/06/20 06/06/20 Range/Units 01:05 02:21 04:00 WBC 10.8 H (3.8-10.6) k/uL RBC 3.15 L (4.30-5.90) m/uL Hgb 9.1 L (13.0-17.5) gm/dL Hct 28.0 L (39.0-53.0) % Plt Count 530 H (150-450) k/uL ABG pH (7.35-7.45) ABG HCO3 (21-25) mmol/L ABG Total CO2 (19-24) mmol/L ABG O2 Saturation (94-97) % Sodium (137-145) mmol/L Carbon Dioxide (22-30) mmol/L Creatinine (0.66-1.25) mg/dL Glucose (74-99) mg/dL POC Glucose (mg/dL) 136 H 135 H (75-99) mg/dL Calcium (8.4-10.2) mg/dL 06/06/20 06/06/20 06/06/20 Range/Units 04:00 04:25 04:50 WBC (3.8-10.6) k/uL RBC (4.30-5.90) m/uL Hgb (13.0-17.5) gm/dL Hct (39.0-53.0) % Plt Count (150-450) k/uL ABG pH 7.51 H (7.35-7.45) ABG HCO3 33 H (21-25) mmol/L ABG Total CO2 34 H (19-24) mmol/L ABG O2 Saturation 98.9 H (94-97) % Sodium 136 L (137-145) mmol/L Carbon Dioxide 33 H (22-30) mmol/L Creatinine 0.60 L (0.66-1.25) mg/dL Glucose 113 H (74-99) mg/dL POC Glucose (mg/dL) 108 H (75-99) mg/dL Calcium 8.1 L (8.4-10.2) mg/dL 06/06/20 Range/Units 06:18 WBC (3.8-10.6) k/uL RBC (4.30-5.90) m/uL Hgb (13.0-17.5) gm/dL Hct (39.0-53.0) % Plt Count (150-450) k/uL ABG pH (7.35-7.45) ABG HCO3 (21-25) mmol/L ABG Total CO2 (19-24) mmol/L ABG O2 Saturation (94-97) % Sodium (137-145) mmol/L Carbon Dioxide (22-30) mmol/L Creatinine (0.66-1.25) mg/dL Glucose (74-99) mg/dL POC Glucose (mg/dL) 169 H (75-99) mg/dL Calcium (8.4-10.2) mg/dL - Imaging and Cardiology Chest x-ray: report reviewed, image reviewed Assessment and Plan Assessment: 1. Unstable angina, severe calcific 3 vessel coronary artery disease, status post three-vessel CABG 2. Recent stroke in November 2019 with continued short-term memory loss and impulsivity 3. Cardiomyopathy with EF 45-50% 4. Hypertension 5. Hyperlipidemia 6. Insulin-dependent diabetes with preoperative hemoglobin A1c 8% 7. Asthma 8. Previous tobacco dependence with preoperative FEV1 75% of predicted 9. Family history of premature coronary artery disease with father diagnosed less than 60 years old. 10. Postoperative acute blood loss anemia and thrombocytopenia, expected 11. Acute hypoxic respiratory failure requiring reintubation, unexpected 12. Metabolic alkalosis, hypokalemia 13. Malnutrition, s/p PEG tube placement 14. Prolonged mechanical ventilation, s/p tracheostomy placement Plan: 1. Continue aspirin, statin, Plavix, beta sarah therapy down PEG tube. 2. Ventilator managment, bronchodilators per pulmonology. Wean as tolerated, continue CPAP trial 3. Will monitor daily labs and x-rays. Electrolyte replacement per protocol. We will give Lasix 40 mg IV push 1 4. GI/DVT prophylaxis 5. Pain control with current medication regimen 6. Insulin management per Dr. Tafoya 7. Continue tube feedings 8. Strict accurate intake and output, daily weight 9. Continue Seroquel, start Clonopin 10. Reorient as needed. Work towards being able to remove restraints 11. Social work/case management on consult for discharge planning, patient will need LTAC, authorization and progress 12. More recommendations to follow based on patient's progress Time with Patient: Greater than 30
[2020-06-06] MEDS: QUEtiapine 100 MG TAB PO SCH ×2 (09:28→20:20)
[2020-06-06] MEDS: ASPIRIN 325 MG TAB PO SCH (09:28)
[2020-06-06] MEDS: CHLORHEXIDINE GLUCONATE 15 ML CUP MUCOUS MEM SCH ×2 (09:28→20:20)
[2020-06-06] MEDS: polyethylene glycoL 3350 17 GM POWD.PACK PO SCH (09:29)
[2020-06-06] MEDS: PANTOPRAZOLE 40 MG/10 ML VIAL IVP SCH (09:29)
[2020-06-06] MEDS: ATORVASTATIN 40 MG TAB PO SCH (09:29)
[2020-06-06] MEDS: CLOPIDOGREL 75 MG TAB PO SCH (09:29)
[2020-06-06] MEDS: clonazePAM 1 MG TAB PO SCH ×2 (09:29→20:21)
[2020-06-06] MEDS: METOPROLOL TARTRATE 12.5 MG TAB PO SCH ×2 (09:29→20:20)
[2020-06-06] MEDS: lisinopriL 5 MG TAB PO SCH (09:29)
[2020-06-06 10:49] LABS: Glucose,Whole Blood 142 mg/dL (75-99)
--- NOTE | 2020-06-06 12:20 | P.PN ---
Subjective Progress Note Date: 06/06/20 Principal diagnosis: Status post CABG, postoperative day # 15 74-year-old male patient with post four-vessel bypass surgery. The patient is postop day #7 the patient underwent DOOLEY to LAD and saphenous vein graft to obtuse marginal and PDA. The patient has cardiomyopathy with ejection fraction of 45%. The patient has insulin-dependent diabetes mellitus and the patient has a previous history of CVA including with a short-term memory loss and impulsivity. Postextubation and currently the patient remains on a mechanical ventilator. His cardiac rhythm is sinus. He is hemodynamically stable. The patient remains on assist control mode of ventilation at the rate of 16 with a tidal volume of 450 and FiO2 of 25% and a PEEP of 5. He is post exhibition insertion and the patient will be started on feeding for nutritional support. Sedation is with propofol at a rate of 30mcg per KG per minute and insulin drip is running 4U units an hour for blood sugar control. Chest x-ray showing some retrocardiac infiltration and left basilar airspace disease. The patient is cur rently on Levaquin as an empiric antibiotic coverage. The patient is on DuoNeb nebulized treatments around the clock, aspirin and Plavix and the patient is also on metoprolol 25 mg by mouth twice a day. The sputum culture has shown no growth. Urine cultures no growth. A CAT scan of the brain that showed no evidence of any acute intracranial hemorrhage or midline shift. This is unchanged compared to previous CT if the brain of November 2019. The blood gases from today showed a pH of 7.5 with a pCO2 of 40 and pO2 of 79. Peak airway pressures nonelevated at 22. X-ray showing cardiomegaly. If she was in a good location. The patient has pulmonary vessel congestion. There is also bowel loops on the right hemidiaphragm. There is also volume loss and the patient is smaller lung volumes. The patient was given a dose of Lasix 40 mg of push yesterday. His net fluid balance for yesterday is negative 255 mL. urine output is in order of 30-60 mL an hour. Patient is also on Seroquel 50 mg by mouth twice a day. He is on Levemir insulin was introduced for blood sugar control. Patient was reevaluated today on 06/05/20, patient is now postoperative day #14. Remains on mechanical ventilation, his ventilator settings are assist control rate of 16, volume is 400 FiO2 is 40% PEEP of 5. Patient remains on Precedex at 0.4 mg/kg/h, remains on lactated Ringer's at 50 mL per hour. And he is on insulin at 4.5 units per hour. Patient is status post CABG on 05/22. Extubated on 05/22. Reintubated on 05/25 extubated on 05/30 reintubated 05/30 underwent tracheostomy on 05/31 PEG tube placement on 05/31 and his PEG tube had to be replaced again on 06/03 because he pulled it off. Patient is arousable, but gets agitated easily Precedex seems to be helping significantly. Keeps the patient called, patient was also placed on multiple medications for his anxiety and extreme agitation, yet to be started today via PEG tube. Chest x-ray showed cardiomegaly and small bilateral pleural effusions. Left more so than right. CBC showed WBC 9.7 hemoglobin 8.8. ABG showed a pO2 of 84 pCO2 of 42 pH of 7.49 basic metabolic profile is normal renal profile is normal. Last pro-calcitonin was 0.08, low. Reevaluated today on 06/06/20, patient is postoperative day #15. Remains intubated and mechanically ventilated he is on assist control rate of 16 tidal volume is 400 FiO2 is 40% PEEP is 5. ABG showed a pO2 of 96 pCO2 of 42 pH of 7.51. Patient is not requiring any pressors, he did tolerate yesterday pressure support of 10 and CPAP most of the day. Had to be placed on assist control mode of mechanical ventilation overnight. Patient is drowsy but arousable and follows simple instructions. CBC is relatively normal. Electrolytes and renal profile are normal. Patient is on enteral feeding. Via PEG tube. Chest x-ray showed low lung volumes, mild to moderate vascular congestion, and possibly a small left pleural effusion with basilar atelectasis. Possible infiltrate Objective - Vital Signs Vital signs: Vital Signs Temp 99.8 F H 06/06/20 08:00 Pulse 83 06/06/20 11:57 Resp 38 H 06/06/20 11:00 BP 105/55 06/06/20 11:00 Pulse Ox 96 06/06/20 11:00 Intake & Output 06/05/20 06/06/20 06/06/20 18:59 06:59 18:59 Intake Total 700.201 687.249 859.31 Output Total 0 0 Balance 700.201 687.249 859.31 Weight 90 kg 90 kg Intake: IV 600 270 120 LR 600 270 120 Intake, IV Titration 100.201 57.249 19.31 Amount Dexmedetomidine/0.9% NaCl 57.975 (Pmx) 400 mcg In Empty Bag 1 bag @ 0.2 MCG/KG/HR 4.37 mls/hr IV .[id number] [facility] Rx#:[id number] Insulin Regular 100 unit 42.226 57.249 19.31 In Sodium Chloride 0.9% 100 ml @ Per Protocol IV .Q0M [facility] Rx#:[id number] Tube Feeding 270 540 Other 90 180 Output: Urine 0 0 Other: Voiding Method Diaper Diaper Diaper Incontinent Incontinent Incontinent # Voids 0 1 1 # Bowel Movements 1 ABP, PAP, CO, CI - Last Documented Arterial Blood Pressure 103/42 Pulmonary Artery Pressure 32/15 Cardiac Output 4.4 Cardiac Index 2.2 - Exam GENERAL EXAM: Revealed a 74-year-old white male on mechanical ventilation, tracheostomy is intact, in no distress, off Precedex. Not requiring any sedation. HEAD: Normocephalic. Atraumatic. EYES: PERRLA, EOMI, no icterus. NOSE: Unremarkable. Nasal mucosa is normal. THROAT: Tracheostomy is intact and the #8 Shiley. NECK: No neck masses no stridor. CHEST: Symmetrical chest expansion, sternum is stable. Fine crackles and dimi nished breath sounds at the left base CVS: Normal S1 and S2, no S3 gallop ABDOMEN: Soft nontender no megaly no rebound no guarding. SKIN: No rashes no petechiae. CENTRAL NERVOUS SYSTEM: Arousable, follows simple instructions. But slow EXTREMITIES: No clubbing edema or cyanosis. - Labs CBC & Chem 7: 06/06/20 04:00 06/06/20 04:00 Labs: Abnormal Lab Results - Last 24 Hours (Table) 06/05/20 06/05/20 06/05/20 Range/Units 12:18 13:00 14:00 WBC (3.8-10.6) k/uL RBC (4.30-5.90) m/uL Hgb (13.0-17.5) gm/dL Hct (39.0-53.0) % Plt Count (150-450) k/uL ABG pH (7.35-7.45) ABG HCO3 (21-25) mmol/L ABG Total CO2 (19-24) mmol/L ABG O2 Saturation (94-97) % Sodium (137-145) mmol/L Carbon Dioxide (22-30) mmol/L Creatinine (0.66-1.25) mg/dL Glucose (74-99) mg/dL POC Glucose (mg/dL) 124 H 120 H 118 H (75-99) mg/dL Calcium (8.4-10.2) mg/dL 06/05/20 06/05/20 06/05/20 Range/Units 14:59 17:09 19:02 WBC (3.8-10.6) k/uL RBC (4.30-5.90) m/uL Hgb (13.0-17.5) gm/dL Hct (39.0-53.0) % Plt Count (150-450) k/uL ABG pH (7.35-7.45) ABG HCO3 (21-25) mmol/L ABG Total CO2 (19-24) mmol/L ABG O2 Saturation (94-97) % Sodium (137-145) mmol/L Carbon Dioxide (22-30) mmol/L Creatinine (0.66-1.25) mg/dL Glucose (74-99) mg/dL POC Glucose (mg/dL) 115 H 122 H 145 H (75-99) mg/dL Calcium (8.4-10.2) mg/dL 06/05/20 06/05/20 06/05/20 Range/Units 20:23 22:07 23:57 WBC (3.8-10.6) k/uL RBC (4.30-5.90) m/uL Hgb (13.0-17.5) gm/dL Hct (39.0-53.0) % Plt Count (150-450) k/uL ABG pH (7.35-7.45) ABG HCO3 (21-25) mmol/L ABG Total CO2 (19-24) mmol/L ABG O2 Saturation (94-97) % Sodium (137-145) mmol/L Carbon Dioxide (22-30) mmol/L Creatinine (0.66-1.25) mg/dL Glucose (74-99) mg/dL POC Glucose (mg/dL) 144 H 132 H 153 H (75-99) mg/dL Calcium (8.4-10.2) mg/dL 06/06/20 06/06/20 06/06/20 Range/Units 01:05 02:21 04:00 WBC 10.8 H (3.8-10.6) k/uL RBC 3.15 L (4.30-5.90) m/uL Hgb 9.1 L (13.0-17.5) gm/dL Hct 28.0 L (39.0-53.0) % Plt Count 530 H (150-450) k/uL ABG pH (7.35-7.45) ABG HCO3 (21-25) mmol/L ABG Total CO2 (19-24) mmol/L ABG O2 Saturation (94-97) % Sodium (137-145) mmol/L Carbon Dioxide (22-30) mmol/L Creatinine (0.66-1.25) mg/dL Glucose (74-99) mg/dL POC Glucose (mg/dL) 136 H 135 H (75-99) mg/dL Calcium (8.4-10.2) mg/dL 06/06/20 06/06/20 06/06/20 Range/Units 04:00 04:25 04:50 WBC (3.8-10.6) k/uL RBC (4.30-5.90) m/uL Hgb (13.0-17.5) gm/dL Hct (39.0-53.0) % Plt Count (150-450) k/uL ABG pH 7.51 H (7.35-7.45) ABG HCO3 33 H (21-25) mmol/L ABG Total CO2 34 H (19-24) mmol/L ABG O2 Saturation 98.9 H (94-97) % Sodium 136 L (137-145) mmol/L Carbon Dioxide 33 H (22-30) mmol/L Creatinine 0.60 L (0.66-1.25) mg/dL Glucose 113 H (74-99) mg/dL POC Glucose (mg/dL) 108 H (75-99) mg/dL Calcium 8.1 L (8.4-10.2) mg/dL 06/06/20 06/06/20 06/06/20 Range/Units 06:18 09:03 10:47 WBC (3.8-10.6) k/uL RBC (4.30-5.90) m/uL Hgb (13.0-17.5) gm/dL Hct (39.0-53.0) % Plt Count (150-450) k/uL ABG pH (7.35-7.45) ABG HCO3 (21-25) mmol/L ABG Total CO2 (19-24) mmol/L ABG O2 Saturation (94-97) % Sodium (137-145) mmol/L Carbon Dioxide (22-30) mmol/L Creatinine (0.66-1.25) mg/dL Glucose (74-99) mg/dL POC Glucose (mg/dL) 169 H 144 H 142 H (75-99) mg/dL Calcium (8.4-10.2) mg/dL Assessment and Plan Assessment: Impression: Status post CABG, postoperative day #15 Acute hypoxic respiratory failure and failure to wean, patient required tracheostomy and PEG tube placement, unexpected. Ischemic cardiomyopathy and LV dysfunction. Ejection fraction 45%. Dyslipidemia. Chronic mild intermittent asthma Type 2 diabetes Tobacco dependence syndrome Previous history of CVA in November 22 Benign essential hypertension History of PEG tube placement 2. Recommendation: Continue ventilatory support. Continue Seroquel. We'll try the patient again on pressure support of 10 and CPAP today. Continue enteral feeding. Continue GI and DVT prophylaxis. Continue nutritional support. Continue Klonopin. Remains critically ill, Critical care time is 32 minutes Time with Patient: Greater than 30
[2020-06-06 13:05] LABS: Glucose,Whole Blood 121 mg/dL (75-99)
[2020-06-06] MEDS: INSULIN REGULAR 100 UNIT in SODIUM CHLORIDE 0.9% 100 ML IV SCH (13:08)
--- NOTE | 2020-06-06 13:35 | P.PN ---
Subjective Progress Note Date: 06/06/20 CHIEF COMPLAINT: Patient is status post CABG HISTORY OF PRESENT ILLNESS: Patient remains in the ICU. He is intubated and on mechanical ventilation. Patient is status post PEG tube placement. Patient is status post tracheostomy placement with Dr. Boone. Apparently patient pulled out his PEG tube over the weekend. PEG tube was reinserted by Dr. Zamora on 06/03/2020. Afebrile. WBC 10.8 hemoglobin 9.1 patient restarted on tube feedings yesterday. Patient tolerating tube feedings. PHYSICAL EXAM: VITAL SIGNS: Reviewed. GENERAL: Well-developed in no acute distress. HEENT: No sclera icterus. Extraocular movements grossly intact. Moist buccal mucosa. Head is atraumatic, normocephalic. ABDOMEN: Soft. Nondistended. Nontender. NEUROLOGIC: Intubated ASSESSMENT: 1. Coronary artery disease status post three-vessel CABG 2. Severe protein calorie malnutrition status post PEG tube placement PLAN: -Continue supportive care -Continue tube feedings Physician Rn Private Duty note has been reviewed by physician. Signing provider agrees with the documented findings, assessment, and plan of care. Objective - Vital Signs Vital signs: Vital Signs Temp 99.2 F 06/06/20 12:00 Pulse 79 06/06/20 13:00 Resp 28 H 06/06/20 13:00 BP 120/67 06/06/20 13:00 Pulse Ox 99 06/06/20 13:00 Intake & Output 06/05/20 06/06/20 06/06/20 18:59 06:59 18:59 Intake Total 700.201 687.249 859.31 Output Total 0 0 Balance 700.201 687.249 859.31 Weight 90 kg 90 kg Intake: IV 600 270 120 LR 600 270 120 Intake, IV Titration 100.201 57.249 19.31 Amount Dexmedetomidine/0.9% NaCl 57.975 (Pmx) 400 mcg In Empty Bag 1 bag @ 0.2 MCG/KG/HR 4.37 mls/hr IV .[id number] [facility] Rx#:[id number] Insulin Regular 100 unit 42.226 57.249 19.31 In Sodium Chloride 0.9% 100 ml @ Per Protocol IV .Q0M [facility] Rx#:[id number] Tube Feeding 270 540 Other 90 180 Output: Urine 0 0 Other: Voiding Method Diaper Diaper Diaper Incontinent Incontinent Incontinent # Voids 0 1 1 # Bowel Movements 1 ABP, PAP, CO, CI - Last Documented Arterial Blood Pressure 103/42 Pulmonary Artery Pressure 32/15 Cardiac Output 4.4 Cardiac Index 2.2 - Labs CBC & Chem 7: 06/06/20 04:00 06/06/20 04:00 Labs: Abnormal Lab Results - Last 24 Hours (Table) 06/05/20 06/05/20 06/05/20 Range/Units 14:00 14:59 17:09 WBC (3.8-10.6) k/uL RBC (4.30-5.90) m/uL Hgb (13.0-17.5) gm/dL Hct (39.0-53.0) % Plt Count (150-450) k/uL ABG pH (7.35-7.45) ABG HCO3 (21-25) mmol/L ABG Total CO2 (19-24) mmol/L ABG O2 Saturation (94-97) % Sodium (137-145) mmol/L Carbon Dioxide (22-30) mmol/L Creatinine (0.66-1.25) mg/dL Glucose (74-99) mg/dL POC Glucose (mg/dL) 118 H 115 H 122 H (75-99) mg/dL Calcium (8.4-10.2) mg/dL 06/05/20 06/05/20 06/05/20 Range/Units 19:02 20:23 22:07 WBC (3.8-10.6) k/uL RBC (4.30-5.90) m/uL Hgb (13.0-17.5) gm/dL Hct (39.0-53.0) % Plt Count (150-450) k/uL ABG pH (7.35-7.45) ABG HCO3 (21-25) mmol/L ABG Total CO2 (19-24) mmol/L ABG O2 Saturation (94-97) % Sodium (137-145) mmol/L Carbon Dioxide (22-30) mmol/L Creatinine (0.66-1.25) mg/dL Glucose (74-99) mg/dL POC Glucose (mg/dL) 145 H 144 H 132 H (75-99) mg/dL Calcium (8.4-10.2) mg/dL 06/05/20 06/06/20 06/06/20 Range/Units 23:57 01:05 02:21 WBC (3.8-10.6) k/uL RBC (4.30-5.90) m/uL Hgb (13.0-17.5) gm/dL Hct (39.0-53.0) % Plt Count (150-450) k/uL ABG pH (7.35-7.45) ABG HCO3 (21-25) mmol/L ABG Total CO2 (19-24) mmol/L ABG O2 Saturation (94-97) % Sodium (137-145) mmol/L Carbon Dioxide (22-30) mmol/L Creatinine (0.66-1.25) mg/dL Glucose (74-99) mg/dL POC Glucose (mg/dL) 153 H 136 H 135 H (75-99) mg/dL Calcium (8.4-10.2) mg/dL 06/06/20 06/06/20 06/06/20 Range/Units 04:00 04:00 04:25 WBC 10.8 H (3.8-10.6) k/uL RBC 3.15 L (4.30-5.90) m/uL Hgb 9.1 L (13.0-17.5) gm/dL Hct 28.0 L (39.0-53.0) % Plt Count 530 H (150-450) k/uL ABG pH (7.35-7.45) ABG HCO3 (21-25) mmol/L ABG Total CO2 (19-24) mmol/L ABG O2 Saturation (94-97) % Sodium 136 L (137-145) mmol/L Carbon Dioxide 33 H (22-30) mmol/L Creatinine 0.60 L (0.66-1.25) mg/dL Glucose 113 H (74-99) mg/dL POC Glucose (mg/dL) 108 H (75-99) mg/dL Calcium 8.1 L (8.4-10.2) mg/dL 06/06/20 06/06/20 06/06/20 Range/Units 04:50 06:18 09:03 WBC (3.8-10.6) k/uL RBC (4.30-5.90) m/uL Hgb (13.0-17.5) gm/dL Hct (39.0-53.0) % Plt Count (150-450) k/uL ABG pH 7.51 H (7.35-7.45) ABG HCO3 33 H (21-25) mmol/L ABG Total CO2 34 H (19-24) mmol/L ABG O2 Saturation 98.9 H (94-97) % Sodium (137-145) mmol/L Carbon Dioxide (22-30) mmol/L Creatinine (0.66-1.25) mg/dL Glucose (74-99) mg/dL POC Glucose (mg/dL) 169 H 144 H (75-99) mg/dL Calcium (8.4-10.2) mg/dL 06/06/20 06/06/20 Range/Units 10:47 13:03 WBC (3.8-10.6) k/uL RBC (4.30-5.90) m/uL Hgb (13.0-17.5) gm/dL Hct (39.0-53.0) % Plt Count (150-450) k/uL ABG pH (7.35-7.45) ABG HCO3 (21-25) mmol/L ABG Total CO2 (19-24) mmol/L ABG O2 Saturation (94-97) % Sodium (137-145) mmol/L Carbon Dioxide (22-30) mmol/L Creatinine (0.66-1.25) mg/dL Glucose (74-99) mg/dL POC Glucose (mg/dL) 142 H 121 H (75-99) mg/dL Calcium (8.4-10.2) mg/dL
--- NOTE | 2020-06-06 14:33 | P.PN ---
Subjective Progress Note Date: 06/06/20 Marcos Perez is a 74 yo M with PMH of CAD, hx CVA with residual dementia, T2DM, HTN, HLD who is admitted s/p CABG. He is doing well today, hemodynamically stable and extubated, upright in chair. His sugars are controlled on insulin drip. Pt remains confused and agitated this morning, unable to remember the reason he is hospitalized and trying to remove lines and refusing oral medications. He has no specific concerns for me today. 05/24/2020 Seroquel initiated yesterday. general forecaster remains at bedside Patient's agitation/combativeness /impulsiveness improving-fluctuates. No further Haldol/Ativan since yesterday. Mediastinal chest tube removed. Currently on Cleveprex drip. Blood sugars controlled. Chest x-ray reporting continued mild pulmonary vascular congestion with slight improvement in bilateral base aeration. Prominent air persists below the right hemidiaphragm. Maintaining O2 sats in the 90s on 2 L nasal cannula. Afebrile, WBC 12.6. 05/25/2020 He remains on seroquel and precedex drip, he has been intermittently agitated pulling at lines and confused. Pt's vitals and glucose are well controlled today. CT head repeated and no interval change. Pt unable to take PO nutrition and enteral feedings started. 05/26/2020 Re-intubated during the night, FiO2 recently decreased to 25%/+5 of PEEP. ABGs noted. Chest x-ray reported improving lung markings with left base infiltrate.Continues on diprovan and small dose of Levophed drips. Tenacious secretions from endotracheal tube. Sputum culture pending. Afebrile. Urine culture pending. 05/29/20 remains vent dependent, FiO2 25%/+5 of PEEP. Continues on diprovan drip. Chest x-ray reporting continued small left effusion with left basilar retrocardiac atelectasis and/or consolidation. IV Levaquin initiated yesterday. Received a dose of Lasix yesterday with 24-hour I&O reflecting a negative fluid balance. T-max 100.1. Covid results pending. Urine and sputum cultures reporting no growth, blood cultures pending. Staff reports midsternal incision site with minimal serous drainage. Telemetry sinus rhythm. Blood sugars controlled on Levemir. PEG tube placed yesterday, tolerated procedure well. Resuming tube feeding today. 05/30/2020 chest x-ray reported no significant change .extubated early this morn ing, unable to tolerate, reintubated. ABGs noted. Maintained on 40% FiO2/+5 of PEEP. Sedated on diprovan drip. Scheduled for tracheostomy tomorrow. Received a dose of Lasix yesterday with 24-hour I&O reflecting nearly a zero balance.Continues on Levaquin. Sputum culture reporting normal respiratory mattie. Urine culture no growth at 18 hours .Blood sugars ranging from 150s to 250s. Received suppository yesterday, no bowel movement, receiving another suppository today. 05/31/2020 remains vent dependent, 40% FiO2/+5 of PEEP. .Scheduled for tracheostomy today. Chest x-ray reporting small bilateral pleural effusions, bibasilar infiltrates. Maintained on diprovan and insulin drips. No pressors. Blood sugars controlled Telemetry sinus rhythm. T-max 100.9, normal WBC. ABGs noted, bicarb 33. 06/05/2020 maintained on vent support with FiO2 40%/+ repeat. Chest x-ray reporting no significant change-low lung volumes, cardiomegaly with moderate central vascular congestion and probable small bilateral pleural effusions .Continues on Precedex and insulin drips. Status post trach and PEG.PEG tube requiring replacement yesterday secondary to patient pulling out. Tolerated procedure well. Significant improvement in agitation on Precedex. Blood sugars controlled. Sputum culture reporting via Serratia marcescens. Currently on Levaquin. 06/06/2020 remains vent dependent on 40% FiO2/+5 of PEEP. ABGs noted. Chest x- ray reporting no significant change from prior, low lung volumes mild to moderate vascular congestion, small left pleural effusion and bibasilar atelectasis and/or infiltrate. Tolerating tube feeds with minimal residuals. Febrile, T-max 99.8, WBC 10.8. Objective - Vital Signs Vital signs: Vital Signs Temp 99.2 F 06/06/20 12:00 Pulse 79 06/06/20 13:00 Resp 28 H 06/06/20 13:00 BP 120/67 06/06/20 13:00 Pulse Ox 99 06/06/20 13:00 Intake & Output 12/06/06/20 06/06/20 18:59 06:59 18:59 Intake Total 700.201 687.249 859.31 Output Total 0 0 Balance 700.201 687.249 859.31 Weight 90 kg 90 kg Intake: IV 600 270 120 LR 600 270 120 Intake, IV Titration 100.201 57.249 19.31 Amount Dexmedetomidine/0.9% NaCl 57.975 (Pmx) 400 mcg In Empty Bag 1 bag @ 0.2 MCG/KG/HR 4.37 mls/hr IV .[id number] [facility] Rx#:[id number] Insulin Regular 100 unit 42.226 57.249 19.31 In Sodium Chloride 0.9% 100 ml @ Per Protocol IV .Q0M [facility] Rx#:[id number] Tube Feeding 270 540 Other 90 180 Output: Urine 0 0 Other: Voiding Method Diaper Diaper Diaper Incontinent Incontinent Incontinent # Voids 0 1 1 # Bowel Movements 1 ABP, PAP, CO, CI - Last Documented Arterial Blood Pressure 103/42 Pulmonary Artery Pressure 32/15 Cardiac Output 4.4 Cardiac Index 2.2 - Exam General: Arousable, reintubated on mechanical ventilation, tracheostomy present. Eyes: PERRL, conjunctiva normal. HENT: normocephalic, atraumatic Neck: supple, no JVD. Tracheostomy present. Lungs: normal respiratory effort, bilateral bases diminished. Fine bibasilar crackles. Mediastinal incision site clean and dry. CV: Regular rate and rhythm, no murmur. Peripheral pulses 2+ Abdomen: soft, nondistended, no organomegaly, PEG tube present. Umbilical hernia present. Skin: warm and dry. Neuro: currently off Precedex, follows simple commands Microbiology 06/02/20 08:40 Sputum Gram Stain - Final 06/02/20 08:40 Sputum Sputum Culture - Final Serratia marcescens 05/26/20 09:53 Blood Blood Culture - Final No Growth after 144 hours 05/25/20 22:00 Sputum Gram Stain - Final 05/25/20 22:00 Sputum Sputum Culture - Final 05/25/20 08:25 Urine,Voided Urine Culture - Final - Labs CBC & Chem 7: 06/06/20 04:00 06/06/20 04:00 Labs: Abnormal Lab Results - Last 24 Hours (Table) 06/05/20 06/05/2006/05/20 Range/Units 14:00 14:59 17:09 WBC (3.8-10.6) k/uL RBC (4.30-5.90) m/uL Hgb (13.0-17.5) gm/dL Hct (39.0-53.0) % Plt Count (150-450) k/uL ABG pH (7.35-7.45) ABG HCO3 (21-25) mmol/L ABG Total CO2 (19-24) mmol/L ABG O2 Saturation (94-97) % Sodium (137-145) mmol/L Carbon Dioxide (22-30) mmol/L Creatinine (0.66-1.25) mg/dL Glucose (74-99) mg/dL POC Glucose (mg/dL) 118 H 115 H 122 H (75-99) mg/dL Calcium (8.4-10.2) mg/dL 06/05/20 06/05/20 06/05/20 Range/Units 19:02 20:23 22:07 WBC (3.8-10.6) k/uL RBC (4.30-5.90) m/uL Hgb (13.0-17.5) gm/dL Hct (39.0-53.0) % Plt Count (150-450) k/uL ABG pH (7.35-7.45) ABG HCO3 (21-25) mmol/L ABG Total CO2 (19-24) mmol/L ABG O2 Saturation (94-97) % Sodium (137-145) mmol/L Carbon Dioxide (22-30) mmol/L Creatinine (0.66-1.25) mg/dL Glucose (74-99) mg/dL POC Glucose (mg/dL) 145 H 144 H 132 H (75-99) mg/dL Calcium (8.4-10.2) mg/dL 06/05/20 06/06/20 06/06/20 Range/Units 23:57 01:05 02:21 WBC (3.8-10.6) k/uL RBC (4.30-5.90) m/uL Hgb (13.0-17.5) gm/dL Hct (39.0-53.0) % Plt Count (150-450) k/uL ABG pH (7.35-7.45) ABG HCO3 (21-25) mmol/L ABG Total CO2 (19-24) mmol/L ABG O2 Saturation (94-97) % Sodium (137-145) mmol/L Carbon Dioxide (22-30) mmol/L Creatinine (0.66-1.25) mg/dL Glucose (74-99) mg/dL POC Glucose (mg/dL) 153 H 136 H 135 H (75-99) mg/dL Calcium (8.4-10.2) mg/dL 06/06/20 06/06/20 06/06/20 Range/Units 04:00 04:00 04:25 WBC 10.8 H (3.8-10.6) k/uL RBC 3.15 L (4.30-5.90) m/uL Hgb 9.1 L (13.0-17.5) gm/dL Hct 28.0 L (39.0-53.0) % Plt Count 530 H (150-450) k/uL ABG pH (7.35-7.45) ABG HCO3 (21-25) mmol/L ABG Total CO2 (19-24) mmol/L ABG O2 Saturation (94-97) % Sodium 136 L (137-145) mmol/L Carbon Dioxide 33 H (22-30) mmol/L Creatinine 0.60 L (0.66-1.25) mg/dL Glucose 113 H (74-99) mg/dL POC Glucose (mg/dL) 108 H (75-99) mg/dL Calcium 8.1 L (8.4-10.2) mg/dL 06/06/20 06/06/20 06/06/20 Range/Units 04:50 06:18 09:03 WBC (3.8-10.6) k/uL RBC (4.30-5.90) m/uL Hgb (13.0-17.5) gm/dL Hct (39.0-53.0) % Plt Count (150-450) k/uL ABG pH 7.51 H (7.35-7.45) ABG HCO3 33 H (21-25) mmol/L ABG Total CO2 34 H (19-24) mmol/L ABG O2 Saturation 98.9 H (94-97) % Sodium (137-145) mmol/L Carbon Dioxide (22-30) mmol/L Creatinine (0.66-1.25) mg/dL Glucose (74-99) mg/dL POC Glucose (mg/dL) 169 H 144 H (75-99) mg/dL Calcium (8.4-10.2) mg/dL 06/06/20 06/06/20 Range/Units 10:47 13:03 WBC (3.8-10.6) k/uL RBC (4.30-5.90) m/uL Hgb (13.0-17.5) gm/dL Hct (39.0-53.0) % Plt Count (150-450) k/uL ABG pH (7.35-7.45) ABG HCO3 (21-25) mmol/L ABG Total CO2 (19-24) mmol/L ABG O2 Saturation (94-97) % Sodium (137-145) mmol/L Carbon Dioxide (22-30) mmol/L Creatinine (0.66-1.25) mg/dL Glucose (74-99) mg/dL POC Glucose (mg/dL) 142 H 121 H (75-99) mg/dL Calcium (8.4-10.2) mg/dL Assessment and Plan Assessment: (1) acute hypoxic respiratory failure, requiring reintubation X2. Failure to wean. Sputum culture with few Serratia marcescens. (2) Status post coronary artery bypass graft Current Visit: Yes Status: Acute Code(s): Z95.1 - PRESENCE OF AORTOCORONARY BYPASS GRAFT SNOMED Code(s): 042431254 (3)Triple vessel coronary artery disease Current Visit: Yes Status: Acute Code(s): I25.10 - ATHSCL HEART DISEASE OF [place] CORONARY ARTERY W/O ANG PCTRS SNOMED Code(s): 733238613 (4) History of CVA with residual deficit Current Visit: Yes Status: Acute Code(s): I69.30 - UNSPECIFIED SEQUELAE OF CEREBRAL INFARCTION SNOMED Code(s): 973393895 (5) Type 2 diabetes mellitus Current Visit: Yes Status: Acute Code(s): E11.9 - TYPE 2 DIABETES MELLITUS WITHOUT COMPLICATIONS SNOMED Code(s): 80613194 (6) Dementia Current Visit: Yes Status: Acute Code(s): F03.90 - UNSPECIFIED DEMENTIA WITHOUT BEHAVIORAL DISTURBANCE SNOMED Code(s): 43018335 (7) Cerebral infarction, remote, resolved Current Visit: No Status: Acute Code(s): Z86.73 - PRSNL HX OF TIA (TIA), AND CEREB INFRC W/O RESID DEFICITS SNOMED Code(s): 923926668 (8) PEG tube placement 2 (9) severe protein calorie malnutrition Plan: Continue current medication regime ,monitoring and symptomatic treatment. ICU management as per online content coordinator. Blood sugars controlled, maintain close monitoring of Accu-Cheks. Prognosis guarded given multiple complex medical issues. The impression and plan of care has been dictated as directed. : I performed a history and examination of this patient, discussed the same with the dictator. I agree with the dictator's note ,documented as a scribe. Any additional findings or plans will be noted.
[2020-06-06 15:51] LABS: Glucose,Whole Blood 133 mg/dL (75-99)
[2020-06-06 17:17] LABS: Glucose,Whole Blood 157 mg/dL (75-99)
[2020-06-06 19:45] LABS: Glucose,Whole Blood 135 mg/dL (75-99)
[2020-06-06] MEDS: SENNOSIDES-DOCUSATE SODIUM 1 EACH TAB PO SCH (20:20)
[2020-06-06 21:18] LABS: Glucose,Whole Blood 182 mg/dL (75-99)
[2020-06-06] MEDS: LEVOFLOXACIN 500MG-D5W PMX 500 MG in DEXTROSE/WATER 1 100ML.BAG IVPB SCH (21:21)
[2020-06-06 22:44] LABS: Glucose,Whole Blood 175 mg/dL (75-99)
[2020-06-07 00:52] LABS: Glucose,Whole Blood 173 mg/dL (75-99)
[2020-06-07] MEDS: LACTATED RINGERS 1,000 ML IV SCH ×2 (01:28→21:13)
[2020-06-07] MEDS: IPRATROPIUM-ALBUTEROL 3 ML NEB INHALATION SCH ×6 (03:06→23:13)
[2020-06-07 03:51] LABS: Glucose,Whole Blood 175 mg/dL (75-99)
[2020-06-07 04:48] LABS: ABG Base Excess 9.9 mmol/L; ABG HCO3 33 mmol/L (21-25); ABG Oxygen Saturation 98.7 % (94-97); ABG PCO2 44 mmHg (35-45); ABG PH 7.49 (7.35-7.45); ABG PO2 96 mmHg (83-108); ABG TCO2 35 mmol/L (19-24); Allen Test Performed? Yes
[2020-06-07 04:50] LABS: Hypochromasia Slight; MCH 30.5 pg (25.0-35.0); MCHC 33.4 g/dL (31.0-37.0); MCV 91.4 fL (80.0-100.0); Mean Platelet Volume 7.6; Platelet Count 495 k/uL (150-450); RBC 3.28 m/uL (4.30-5.90); RDW 14.4 % (11.5-15.5); WBC 10.6 k/uL (3.8-10.6)
[2020-06-07 05:05] LABS: African American GFR (CKD) >90 (>60 ml/min/1.73 sqM); Anion Gap 5 mmol/L; Blood Urea Nitrogen 18 mg/dL (9-20); Calcium 8.2 mg/dL (8.4-10.2); Carbon Dioxide 29 mmol/L (22-30); Chloride 101 mmol/L (98-107); Glucose 148 mg/dL (74-99); Non-African American GFR(CKD) >90 (>60 ml/min/1.73 sqM); Potassium 4.4 mmol/L (3.5-5.1); Sodium 135 mmol/L (137-145)
[2020-06-07] MEDS: HEPARIN SODIUM,PORCINE 5,000 UNIT/ML 1 ML VIAL SQ SCH ×3 (06:09→20:09)
[2020-06-07 06:31] LABS: Glucose,Whole Blood 194 mg/dL (75-99)
[2020-06-07 07:22] LABS: Glucose,Whole Blood 208 mg/dL (75-99)
[2020-06-07] MEDS: INSULIN REGULAR 100 UNIT in SODIUM CHLORIDE 0.9% 100 ML IV SCH ×2 (07:22→17:35)
--- NOTE | 2020-06-07 07:44 | XR ---
EXAMINATION TYPE: XR chest 1V portable DATE OF EXAM: 06/07/2020 CLINICAL HISTORY: Difficulty breathing progress study. Postoperative cardiac surgery. TECHNIQUE: Single AP portable semiupright view of the chest is obtained. COMPARISON: Chest x-ray from one day earlier and older studies. FINDINGS: Stable tracheostomy tube. Overlying sternal wires and mediastinal clips along with left at rial appendage clip are all redemonstrated. Stable cardiomegaly. Stable low lung volumes with central vascular congestion and left greater than r ight bibasilar opacities. Osseous structures remaining intact. Gas prominent bowel presumed colonic l oops are redemonstrated in the right abdomen. IMPRESSION: Low lung volumes and cardiomegaly with mild to moderate central vascular congestion along with small left pleural effusion and left greater than right bibasilar atelectasis and/or infiltrate are all redemonstrated. No significant change from most recent x-ray.
[2020-06-07] MEDS: clonazePAM 1 MG TAB PO SCH (08:16)
[2020-06-07] MEDS: QUEtiapine 100 MG TAB PO SCH (08:16)
[2020-06-07] MEDS: ASPIRIN 325 MG TAB PO SCH (08:20)
[2020-06-07] MEDS: METOPROLOL TARTRATE 12.5 MG TAB PO SCH ×2 (08:20→20:10)
[2020-06-07] MEDS: CLOPIDOGREL 75 MG TAB PO SCH (08:20)
[2020-06-07] MEDS: PANTOPRAZOLE 40 MG/10 ML VIAL IVP SCH (08:20)
[2020-06-07] MEDS: ATORVASTATIN 40 MG TAB PO SCH (08:20)
[2020-06-07] MEDS: CHLORHEXIDINE GLUCONATE 15 ML CUP MUCOUS MEM SCH ×2 (08:20→20:09)
[2020-06-07] MEDS: lisinopriL 5 MG TAB PO SCH (08:20)
[2020-06-07] MEDS: polyethylene glycoL 3350 17 GM POWD.PACK PO SCH (08:21)
[2020-06-07 08:59] LABS: Glucose,Whole Blood 232 mg/dL (75-99)
[2020-06-07] MEDS ORDERED: FUROSEMIDE 10 MG/ML 2 ML VIAL IV STA (09:24)
--- NOTE | 2020-06-07 09:25 | P.PN ---
Subjective Progress Note Date: 06/07/20 Principal diagnosis: Unstable angina, severe calcific 3 vessel coronary artery disease. Past medical history significant for recent stroke in November 2019 with continued short-term m jackson loss and impulsivity, cardiomyopathy with EF 45-50%, hypertension, hyperlipidemia, insulin-dependent diabetes with preoperative hemoglobin A1c 8%, asthma, previous tobacco dependence with preoperative FEV1 75% of predicted, and family history of premature coronary artery disease with father diagnosed less than 60 years old. POD #16 coronary artery bypass grafting 3 with the left internal mammary artery to the left anterior descending artery, a reverse greater saphenous vein graft off the aorta to the first obtuse marginal artery and the posterior descending artery with endoscopic vein harvesting of the left lower extremity greater saphenous vein, clip ligation of the left atrial appendage with a 35 mm AtriClip and intraoperative transesophageal echocardiogram. Postoperative acute blood loss anemia and thrombocytopenia, expected outcomes given hemodilution and cardiopulmonary bypass pump. Acute hypoxic respiratory failure requiring re-intubation, unexpected, likely from inability to clear secretions, prolonged mechanical ventilation POD #10 PEG tube placement POD #7 Tracheostomy placement The patient was seen in follow-up today on 06/07/2020 at his bedside in the intensive care unit. Currently he remains with mechanical and later support, his tracheostomy is midline and intact. Current mechanical ventilator settings are as follows AC 16, TV 400, FiO2 40% and PEEP of 5. Oxygen saturations are 100% with mechanical ventilator settings. He remains hemodynamically stable and is currently on no inotropic or pressor support. He is difficult to arouse this morning, although open his eyes with some noxious stimuli. Does not follow any verbal commands appropriately at this time. He does move all 4 extremities with noxious stimuli. PEG tube in place with vital AF to feeding infusing at 65 mL per hour with automatic water flushes every 4 hours of 30 mL. Antibiotics of Levaquin remain in place for a positive sputum culture on 06/02/2020 positive for Serratia marcescens. T-max temperature in the last 24 hours is 99.5F. A Hearn catheter was placed last evening due to some urinary retention with a bladder scan showing greater than 600 mL. Objective - Vital Signs Vital signs: Vital Signs Temp 99.2 F 06/07/20 08:00 Pulse 75 06/07/20 08:00 Resp 17 06/07/20 08:00 BP 115/56 06/07/20 08:00 Pulse Ox 98 12/16/20 08:00 Intake & Output 06/06/20 06/07/20 06/07/20 18:59 06:59 18:59 Intake Total 2138.323 1372.039 119.948 Output Total 118 90 Balance 2138.323 1254.039 29.948 Weight 90 kg 91.5 kg Intake: IV 240 240 40 LR 240 240 40 Intake, IV Titration 38.323 67.039 14.948 Amount Insulin Regular 100 unit 38.323 67.039 14.948 In Sodium Chloride 0.9% 100 ml @ Per Protocol IV .Q0M [facility] Rx#:[id number] Tube Feeding 1620 1005 65 Other 240 60 Output: Urine 118 90 Other: Voiding Method Diaper Indwelling Catheter Incontinent # Voids 1 0 ABP, PAP, CO, CI - Last Documented Arterial Blood Pressure 103/42 Pulmonary Artery Pressure 32/15 Cardiac Output 4.4 Cardiac Index 2.2 - Constitutional General appearance: Present: cooperative, no acute distress, obese - EENT Eyes: Present: PERRLA, normal appearance. Absent: scleral icterus ENT: Present: hearing grossly normal - Neck Details: Neck is supple, no JVD, midline tracheostomy. - Respiratory Details: Lung sounds essentially clear throughout, diminished to his bilateral bases. No wheezes, rhonchi or crackles. Respirations are symmetrical and nonlabored with mechanical ventilator support. Tracheostomy is midline and intact. Oxygen saturation is 100% with current mechanical ventilator settings. Current ABG results show a pH of 7.49, pCO2 44, PaO2 96, HCO3 33, oxygen saturation 98.7 and base excess 9.9. - Cardiovascular Details: Regular rhythm and rate. S1 and S2 present, negative for S3, gallop or murmur. Bedside telemetry showing normal sinus rhythm heart rate 76. Sternum is stable. Heart hugger is in place. Knee-high DINA hose and sequential compression devices in place was bilateral lower extremities. - Gastrointestinal Gastrointestinal Comment(s): Abdomen is soft, nontender and slightly distended. Hypoactive bowel sounds present in all 4 abdominal quadrants. No guarding or rigidity. No organomegaly appreciated. PEG tube in place with continuous tube feedings vital AF infusing at 65 mL per hour with automatic water flushes 30 mL every 4 hours. Last bowel movement on 06/05/2020. - Genitourinary Genitourinary Comment(s): Hearn catheter in place for accurate I&O and some urinary retention with a bladder scan showing greater than 600. Draining clear gee urine. 210 mL of output in the last 8 hours. - Integumentary Integumentary Comment(s): Skin is warm and dry. No clubbing or cyanosis is present. Midline sternal incision is clean, dry and approximated. No drainage or redness is present. Left lower extremity EVH site is clean, dry and approximated. No drainage or redness is present. PEG tube site is clean with some erythema via underneath the flange of the PEG tube. - Neurologic Neurologic Comment(s): Difficult to assess at this time as the patient is sedated and hard to arouse. Will open up his eyes with noxious stimuli, and moves all 4 extremities with noxious stimuli. - Musculoskeletal Musculoskeletal Comment(s): Moves all 4 extremities. Generalized weakness. - Psychiatric Psychiatric Comment(s): Difficult to assess at this time, as the patient is sedated. - Allied health notes Allied health notes reviewed: nursing - Labs CBC & Chem 7: 06/07/20 03:24 06/07/20 03:24 Labs: Abnormal Lab Results - Last 24 Hours (Table) 06/06/20 06/06/20 06/06/20 Range/Units 09:03 10:47 13:03 RBC (4.30-5.90) m/uL Hgb (13.0-17.5) gm/dL Hct (39.0-53.0) % Plt Count (150-450) k/uL ABG pH (7.35-7.45) ABG HCO3 (21-25) mmol/L ABG Total CO2 (19-24) mmol/L ABG O2 Saturation (94-97) % Sodium (137-145) mmol/L Creatinine (0.66-1.25) mg/dL Glucose (74-99) mg/dL POC Glucose (mg/dL) 144 H 142 H 121 H (75-99) mg/dL Calcium (8.4-10.2) mg/dL 06/06/20 06/06/20 06/06/20 Range/Units 15:50 17:15 19:43 RBC (4.30-5.90) m/uL Hgb (13.0-17.5) gm/dL Hct (39.0-53.0) % Plt Count (150-450) k/uL ABG pH (7.35-7.45) ABG HCO3 (21-25) mmol/L ABG Total CO2 (19-24) mmol/L ABG O2 Saturation (94-97) % Sodium (137-145) mmol/L Creatinine (0.66-1.25) mg/dL Glucose (74-99) mg/dL POC Glucose (mg/dL) 133 H 157 H 135 H (75-99) mg/dL Calcium (8.4-10.2) mg/dL 06/06/20 06/06/20 06/07/20 Range/Units 21:16 22:42 00:50 RBC (4.30-5.90) m/uL Hgb (13.0-17.5) gm/dL Hct (39.0-53.0) % Plt Count (150-450) k/uL ABG pH (7.35-7.45) ABG HCO3 (21-25) mmol/L ABG Total CO2 (19-24) mmol/L ABG O2 Saturation (94-97) % Sodium (137-145) mmol/L Creatinine (0.66-1.25) mg/dL Glucose (74-99) mg/dL POC Glucose (mg/dL) 182 H 175 H 173 H (75-99) mg/dL Calcium (8.4-10.2) mg/dL 06/07/20 06/07/20 06/07/20 Range/Units 03:24 03:24 03:50 RBC 3.28 L (4.30-5.90) m/uL Hgb 10.0 L (13.0-17.5) gm/dL Hct 30.0 L (39.0-53.0) % Plt Count 495 H (150-450) k/uL ABG pH (7.35-7.45) ABG HCO3 (21-25) mmol/L ABG Total CO2 (19-24) mmol/L ABG O2 Saturation (94-97) % Sodium 135 L (137-145) mmol/L Creatinine 0.58 L (0.66-1.25) mg/dL Glucose 148 H (74-99) mg/dL POC Glucose (mg/dL) 175 H (75-99) mg/dL Calcium 8.2 L (8.4-10.2) mg/dL 06/07/20 06/07/20 06/07/20 Range/Units 04:46 06:29 07:21 RBC (4.30-5.90) m/uL Hgb (13.0-17.5) gm/dL Hct (39.0-53.0) % Plt Count (150-450) k/uL ABG pH 7.49 H (7.35-7.45) ABG HCO3 33 H (21-25) mmol/L ABG Total CO2 35 H (19-24) mmol/L ABG O2 Saturation 98.7 H (94-97) % Sodium (137-145) mmol/L Creatinine (0.66-1.25) mg/dL Glucose (74-99) mg/dL POC Glucose (mg/dL) 194 H 208 H (75-99) mg/dL Calcium (8.4-10.2) mg/dL - Imaging and Cardiology Chest x-ray: report reviewed, image reviewed Assessment and Plan Assessment: 1. Unstable angina, severe calcific 3 vessel coronary artery disease, status post three-vessel CABG 2. Recent stroke in November 2019 with continued short-term memory loss and impulsivity 3. Cardiomyopathy with EF 45-50% 4. Hypertension 5. Hyperlipidemia 6. Insulin-dependent diabetes with preoperative hemoglobin A1c 8% 7. Asthma 8. Previous tobacco dependence with preoperative FEV1 75% of predicted 9. Family history of premature coronary artery disease with father diagnosed less than 60 years old. 10. Postoperative acute blood loss anemia and thrombocytopenia, expected 11. Acute hypoxic respiratory failure requiring reintubation, unexpected 12. Metabolic alkalosis, hypokalemia 13. Malnutrition, s/p PEG tube placement 14. Prolonged mechanical ventilation, s/p tracheostomy placement Plan: 1. Continue aspirin, statin, Plavix, beta sarah. Will increase beta sarah as tolerated. 2. Ventilator managment, bronchodilators per pulmonology/critical care medicine. Continue CPAP trials managed by pulmonary critical care management. 3. Increase activity, ambulate as tolerated. 4. Will monitor daily labs and chest x-rays. Electrolyte replacement per protocol. 5. GI/DVT prophylaxis 6. Pain control with current medication regimen. 7. Insulin management per Dr. Tafoya. 8. Reorient patient as necessary. Continue decrease Seroquel to 100 mg per PEG tube daily at bedtime. 9. Continue Hearn catheter for urinary retention and accurate I's and O's. 10. Social work/case management on consult for discharge planning, patient will need LTAC, authorization and progress. 11. Continue tube feedings recommendations per dietitian. Currently on vital AF at 65 mL per hour with automatic water flushes 30 mL every 4 hours. 12. Lasix 20 mg IV 1 now. 13. More recommendations to follow based on patient's clinical course. Time with Patient: Greater than 30
[2020-06-07 11:29] LABS: Glucose,Whole Blood 226 mg/dL (75-99)
[2020-06-07 11:59] LABS: ABG PH 7.57 (7.35-7.45)
--- NOTE | 2020-06-07 12:48 | P.PN ---
Subjective Progress Note Date: 06/07/20 CHIEF COMPLAINT: Patient is status post CABG HISTORY OF PRESENT ILLNESS: Patient remains in the ICU. He is intubated and on mechanical ventilation. Patient is status post PEG tube placement. Patient is status post tracheostomy placement with Dr. Boone. Apparently patient pulled out his PEG tube over the weekend. PEG tube was reinserted by Dr. Zamora on 06/03/2020. Afebrile. WBC 10.8 Patient tolerating tube feedings. Patient did have some discharge around the PEG tube that was clean by nursing staff. At this time there is minimal clear drainage noted. PHYSICAL EXAM: VITAL SIGNS: Reviewed. GENERAL: Well-developed in no acute distress. HEENT: No sclera icterus. Extraocular movements grossly intact. Moist buccal mucosa. Head is atraumatic, normocephalic. ABDOMEN: Soft. Nondistended. Nontender. Clear drainage noted from PEG tube site NEUROLOGIC: Intubated ASSESSMENT: 1. Coronary artery disease status post three-vessel CABG 2. Severe protein calorie malnutrition status post PEG tube placement PLAN: -Continue supportive care -Continue tube feedings -Continue to monitor PEG tube site Physician Investigator Internal Affairs note has been reviewed by physician. Signing provider agrees with the documented findings, assessment, and plan of care. Objective - Vital Signs Vital signs: Vital Signs Temp 99.1 F 06/07/20 12:00 Pulse 90 06/07/20 12:00 Resp 23 06/07/20 12:00 BP 113/63 06/07/20 12:00 Pulse Ox 97 06/07/20 12:00 Intake & Output 06/06/20 06/07/20 06/07/20 18:59 06:59 18:59 Intake Total 2138.323 1372.039 633.160 Output Total 118 520 Balance 2138.323 1254.039 113.160 Weight 90 kg 91.5 kg Intake: IV 240 240 120 LR 240 240 120 Intake, IV Titration 38.323 67.039 58.160 Amount Insulin Regular 100 unit 38.323 67.039 58.160 In Sodium Chloride 0.9% 100 ml @ Per Protocol IV .Q0M [facility] Rx#:[id number] Tube Feeding 1620 1005 455 Other 240 60 Output: Urine 118 520 Other: Voiding Method Diaper Indwelling Catheter Indwelling Catheter Incontinent # Voids 1 0 ABP, PAP, CO, CI - Last Documented Arterial Blood Pressure 103/42 Pulmonary Artery Pressure 32/15 Cardiac Output 4.4 Cardiac Index 2.2 - Labs CBC & Chem 7: 06/07/20 03:24 06/07/20 03:24 Labs: Abnormal Lab Results - Last 24 Hours (Table) 05/31/20 06/06/20 06/06/20 Range/Units 04:49 13:03 15:50 RBC (4.30-5.90) m/uL Hgb (13.0-17.5) gm/dL Hct (39.0-53.0) % Plt Count (150-450) k/uL ABG pH 7.57 H* (7.35-7.45) ABG HCO3 (21-25) mmol/L ABG Total CO2 (19-24) mmol/L ABG O2 Saturation (94-97) % Sodium (137-145) mmol/L Creatinine (0.66-1.25) mg/dL Glucose (74-99) mg/dL POC Glucose (mg/dL) 121 H 133 H (75-99) mg/dL Calcium (8.4-10.2) mg/dL 06/06/20 06/06/20 06/06/20 Range/Units 17:15 19:43 21:16 RBC (4.30-5.90) m/uL Hgb (13.0-17.5) gm/dL Hct (39.0-53.0) % Plt Count (150-450) k/uL ABG pH (7.35-7.45) ABG HCO3 (21-25) mmol/L ABG Total CO2 (19-24) mmol/L ABG O2 Saturation (94-97) % Sodium (137-145) mmol/L Creatinine (0.66-1.25) mg/dL Glucose (74-99) mg/dL POC Glucose (mg/dL) 157 H 135 H 182 H (75-99) mg/dL Calcium (8.4-10.2) mg/dL 06/06/20 06/07/20 06/07/20 Range/Units 22:42 00:50 03:24 RBC 3.28 L (4.30-5.90) m/uL Hgb 10.0 L (13.0-17.5) gm/dL Hct 30.0 L (39.0-53.0) % Plt Count 495 H (150-450) k/uL ABG pH (7.35-7.45) ABG HCO3 (21-25) mmol/L ABG Total CO2 (19-24) mmol/L ABG O2 Saturation (94-97) % Sodium (137-145) mmol/L Creatinine (0.66-1.25) mg/dL Glucose (74-99) mg/dL POC Glucose (mg/dL) 175 H 173 H (75-99) mg/dL Calcium (8.4-10.2) mg/dL 06/07/20 06/07/20 06/07/20 Range/Units 03:24 03:50 04:46 RBC (4.30-5.90) m/uL Hgb (13.0-17.5) gm/dL Hct (39.0-53.0) % Plt Count (150-450) k/uL ABG pH 7.49 H (7.35-7.45) ABG HCO3 33 H (21-25) mmol/L ABG Total CO2 35 H (19-24) mmol/L ABG O2 Saturation 98.7 H (94-97) % Sodium 135 L (137-145) mmol/L Creatinine 0.58 L (0.66-1.25) mg/dL Glucose 148 H (74-99) mg/dL POC Glucose (mg/dL) 175 H (75-99) mg/dL Calcium 8.2 L (8.4-10.2) mg/dL 06/07/20 06/07/20 06/07/20 Range/Units 06:29 07:21 08:58 RBC (4.30-5.90) m/uL Hgb (13.0-17.5) gm/dL Hct (39.0-53.0) % Plt Count (150-450) k/uL ABG pH (7.35-7.45) ABG HCO3 (21-25) mmol/L ABG Total CO2 (19-24) mmol/L ABG O2 Saturation (94-97) % Sodium (137-145) mmol/L Creatinine (0.66-1.25) mg/dL Glucose (74-99) mg/dL POC Glucose (mg/dL) 194 H 208 H 232 H (75-99) mg/dL Calcium (8.4-10.2) mg/dL 06/07/20 Range/Units 11:17 RBC (4.30-5.90) m/uL Hgb (13.0-17.5) gm/dL Hct (39.0-53.0) % Plt Count (150-450) k/uL ABG pH (7.35-7.45) ABG HCO3 (21-25) mmol/L ABG Total CO2 (19-24) mmol/L ABG O2 Saturation (94-97) % Sodium (137-145) mmol/L Creatinine (0.66-1.25) mg/dL Glucose (74-99) mg/dL POC Glucose (mg/dL) 226 H (75-99) mg/dL Calcium (8.4-10.2) mg/dL
[2020-06-07 13:00] LABS: Glucose,Whole Blood 236 mg/dL (75-99)
--- NOTE | 2020-06-07 13:08 | P.PN ---
Subjective Progress Note Date: 06/07/20 Principal diagnosis: Status post CABG, postoperative day # 16 74-year-old male patient with post four-vessel bypass surgery. The patient is postop day #7 the patient underwent DOOLEY to LAD and saphenous vein graft to obtuse marginal and PDA. The patient has cardiomyopathy with ejection fraction of 45%. The patient has insulin-dependent diabetes mellitus and the patient has a previous history of CVA including with a short-term memory loss and impulsivity. Postextubation and currently the patient remains on a mechanical ventilator. His cardiac rhythm is sinus. He is hemodynamically stable. The patient remains on assist control mode of ventilation at the rate of 16 with a tidal volume of 450 and FiO2 of 25% and a PEEP of 5. He is post exhibition insertion and the patient will be started on feeding for nutritional support. Sedation is with propofol at a rate of 30mcg per KG per minute and insulin drip is running 4U units an hour for blood sugar control. Chest x-ray showing some retrocardiac infiltration and left basilar airspace disease. The patient is cur rently on Levaquin as an empiric antibiotic coverage. The patient is on DuoNeb nebulized treatments around the clock, aspirin and Plavix and the patient is also on metoprolol 25 mg by mouth twice a day. The sputum culture has shown no growth. Urine cultures no growth. A CAT scan of the brain that showed no evidence of any acute intracranial hemorrhage or midline shift. This is unchanged compared to previous CT if the brain of November 2019. The blood gases from today showed a pH of 7.5 with a pCO2 of 40 and pO2 of 79. Peak airway pressures nonelevated at 22. X-ray showing cardiomegaly. If she was in a good location. The patient has pulmonary vessel congestion. There is also bowel loops on the right hemidiaphragm. There is also volume loss and the patient is smaller lung volumes. The patient was given a dose of Lasix 40 mg of push yesterday. His net fluid balance for yesterday is negative 255 mL. urine output is in order of 30-60 mL an hour. Patient is also on Seroquel 50 mg by mouth twice a day. He is on Levemir insulin was introduced for blood sugar control. Patient was reevaluated today on 06/05/20, patient is now postoperative day #14. Remains on mechanical ventilation, his ventilator settings are assist control rate of 16, volume is 400 FiO2 is 40% PEEP of 5. Patient remains on Precedex at 0.4 mg/kg/h, remains on lactated Ringer's at 50 mL per hour. And he is on insulin at 4.5 units per hour. Patient is status post CABG on 05/22. Extubated on 05/22. Reintubated on 05/25 extubated on 05/30 reintubated 05/30 underwent tracheostomy on 05/31 PEG tube placement on 05/31 and his PEG tube had to be replaced again on 06/03 because he pulled it off. Patient is arousable, but gets agitated easily Precedex seems to be helping significantly. Keeps the patient called, patient was also placed on multiple medications for his anxiety and extreme agitation, yet to be started today via PEG tube. Chest x-ray showed cardiomegaly and small bilateral pleural effusions. Left more so than right. CBC showed WBC 9.7 hemoglobin 8.8. ABG showed a pO2 of 84 pCO2 of 42 pH of 7.49 basic metabolic profile is normal renal profile is normal. Last pro-calcitonin was 0.08, low. Reevaluated today on 06/06/20, patient is postoperative day #15. Remains intubated and mechanically ventilated he is on assist control rate of 16 tidal volume is 400 FiO2 is 40% PEEP is 5. ABG showed a pO2 of 96 pCO2 of 42 pH of 7.51. Patient is not requiring any pressors, he did tolerate yesterday pressure support of 10 and CPAP most of the day. Had to be placed on assist control mode of mechanical ventilation overnight. Patient is drowsy but arousable and follows simple instructions. CBC is relatively normal. Electrolytes and renal profile are normal. Patient is on enteral feeding. Via PEG tube. Chest x-ray showed low lung volumes, mild to moderate vascular congestion, and possibly a small left pleural effusion with basilar atelectasis. Possible infiltrate Reevaluated today on 06/07/20, patient remains in the ICU, intubated and mechanically ventilated. His ventilator settings are assist control rate of 16 tidal volume is 400 FiO2 is 40% and PEEP is 5. Patient seems to be quite sedated this morning, opens eyes, but does not follow any instructions. Grimaces to deep painful stimuli, but again does not follow any instructions. Hence we went ahead and held his sedatives including his Seroquel and his Klonopin. And we'll likely adjust the dose of Seroquel down significantly. Patient remains on enteral feeding, he is receiving vital AF at 65 ML per hour. Again he seems to be quite sedated, he is hemodynamically stable, and does not seem to be in any distress. ABG today showed a pO2 of 96 pCO2 of 44 pH of 7.49. Basic metabolic profile is normal. CBC is relatively normal, hemoglobin is 10. Chest x-ray showed mostly lower lung volumes, cardiomegaly, mild vascular congestion, and small left pleural effusion right basilar atelectasis and dilated bowel loops on the right side below the right diaphragm. Objective - Vital Signs Vital signs: Vital Signs Temp 99.1 F 06/07/20 12:00 Pulse 90 06/07/20 12:00 Resp 23 06/07/20 12:00 BP 113/63 06/07/20 12:00 Pulse Ox 97 06/07/20 12:00 Intake & Output 06/06/20 06/07/20 06/07/20 18:59 06:59 18:59 Intake Total 2138.323 1372.039 649.084 Output Total 118 520 Balance 2138.323 1254.039 129.084 Weight 90 kg 91.5 kg Intake: IV 240 240 120 LR 240 240 120 Intake, IV Titration 38.323 67.039 74.084 Amount Insulin Regular 100 unit 38.323 67.039 74.084 In Sodium Chloride 0.9% 100 ml @ Per Protocol IV .Q0M [facility] Rx#:[id number] Tube Feeding 1620 1005 455 Other 240 60 Output: Urine 118 520 Other: Voiding Method Diaper Indwelling Catheter Indwelling Catheter Incontinent # Voids 1 0 ABP, PAP, CO, CI - Last Documented Arterial Blood Pressure 103/42 Pulmonary Artery Pressure 32/15 Cardiac Output 4.4 Cardiac Index 2.2 - Exam GENERAL EXAM: Revealed a 74-year-old white male on mechanical ventilation, tracheostomy is intact, in no distress, seems to be a bit too sedated today. HEAD: Normocephalic. Atraumatic. EYES: PERRLA, EOMI, no icterus. NOSE: Unremarkable. Nasal mucosa is normal. THROAT: Tracheostomy is intact and the #8 Shiley. NECK: No neck masses no stridor. CHEST: Symmetrical chest expansion, sternum is stable. Fine crackles and diminished breath sounds at the left base CVS: Normal S1 and S2, no S3 gallop ABDOMEN: Soft nontender no megaly no rebound no guarding. SKIN: No rashes no petechiae. CENTRAL NERVOUS SYSTEM: Barely arousable today, opens eyes, grimaces to painful stimuli, does not follow any instructions. EXTREMITIES: No clubbing edema or cyanosis. - Labs CBC & Chem 7: 06/07/20 03:24 06/07/20 03:24 Labs: Abnormal Lab Results - Last 24 Hours (Table) 05/31/20 06/06/20 06/06/20 Range/Units 04:49 13:03 15:50 RBC (4.30-5.90) m/uL Hgb (13.0-17.5) gm/dL Hct (39.0-53.0) % Plt Count (150-450) k/uL ABG pH 7.57 H* (7.35-7.45) ABG HCO3 (21-25) mmol/L ABG Total CO2 (19-24) mmol/L ABG O2 Saturation (94-97) % Sodium (137-145) mmol/L Creatinine (0.66-1.25) mg/dL Glucose (74-99) mg/dL POC Glucose (mg/dL) 121 H 133 H (75-99) mg/dL Calcium (8.4-10.2) mg/dL 06/06/20 06/06/20 06/06/20 Range/Units 17:15 19:43 21:16 RBC (4.30-5.90) m/uL Hgb (13.0-17.5) gm/dL Hct (39.0-53.0) % Plt Count (150-450) k/uL ABG pH (7.35-7.45) ABG HCO3 (21-25) mmol/L ABG Total CO2 (19-24) mmol/L ABG O2 Saturation (94-97) % Sodium (137-145) mmol/L Creatinine (0.66-1.25) mg/dL Glucose (74-99) mg/dL POC Glucose (mg/dL) 157 H 135 H 182 H (75-99) mg/dL Calcium (8.4-10.2) mg/dL 06/06/20 06/07/20 06/07/20 Range/Units 22:42 00:50 03:24 RBC 3.28 L (4.30-5.90) m/uL Hgb 10.0 L (13.0-17.5) gm/dL Hct 30.0 L (39.0-53.0) % Plt Count 495 H (150-450) k/uL ABG pH (7.35-7.45) ABG HCO3 (21-25) mmol/L ABG Total CO2 (19-24) mmol/L ABG O2 Saturation (94-97) % Sodium (137-145) mmol/L Creatinine (0.66-1.25) mg/dL Glucose (74-99) mg/dL POC Glucose (mg/dL) 175 H 173 H (75-99) mg/dL Calcium (8.4-10.2) mg/dL 06/07/20 06/07/20 06/07/20 Range/Units 03:24 03:50 04:46 RBC (4.30-5.90) m/uL Hgb (13.0-17.5) gm/dL Hct (39.0-53.0) % Plt Count (150-450) k/uL ABG pH 7.49 H (7.35-7.45) ABG HCO3 33 H (21-25) mmol/L ABG Total CO2 35 H (19-24) mmol/L ABG O2 Saturation 98.7 H (94-97) % Sodium 135 L (137-145) mmol/L Creatinine 0.58 L (0.66-1.25) mg/dL Glucose 148 H (74-99) mg/dL POC Glucose (mg/dL) 175 H (75-99) mg/dL Calcium 8.2 L (8.4-10.2) mg/dL 06/07/20 06/07/20 06/07/20 Range/Units 06:29 07:21 08:58 RBC (4.30-5.90) m/uL Hgb (13.0-17.5) gm/dL Hct (39.0-53.0) % Plt Count (150-450) k/uL ABG pH (7.35-7.45) ABG HCO3 (21-25) mmol/L ABG Total CO2 (19-24) mmol/L ABG O2 Saturation (94-97) % Sodium (137-145) mmol/L Creatinine (0.66-1.25) mg/dL Glucose (74-99) mg/dL POC Glucose (mg/dL) 194 H 208 H 232 H (75-99) mg/dL Calcium (8.4-10.2) mg/dL 06/07/20 06/07/20 Range/Units 11:17 12:59 RBC (4.30-5.90) m/uL Hgb (13.0-17.5) gm/dL Hct (39.0-53.0) % Plt Count (150-450) k/uL ABG pH (7.35-7.45) ABG HCO3 (21-25) mmol/L ABG Total CO2 (19-24) mmol/L ABG O2 Saturation (94-97) % Sodium (137-145) mmol/L Creatinine (0.66-1.25) mg/dL Glucose (74-99) mg/dL POC Glucose (mg/dL) 226 H 236 H (75-99) mg/dL Calcium (8.4-10.2) mg/dL Assessment and Plan Assessment: Impression: Status post CABG, postoperative day #16 Acute hypoxic respiratory failure and failure to wean, patient required tracheostomy and PEG tube placement, unexpected. Ischemic cardiomyopathy and LV dysfunction. Ejection fraction 45%. Dyslipidemia. Chronic mild intermittent asthma Type 2 diabetes Tobacco dependence syndrome Previous history of CVA in November 22 Benign essential hypertension History of PEG tube placement 2. Extreme postoperative agitation requiring initiated Precedex, and now the patient is maintained on Seroquel and Klonopin, but considering the patient is quite sedated, will hold back on these medications and adjust the dose accordingly. Recommendation: Continue ventilatory support. Continue Seroquel. Cut down the dose to 50 mg daily. And discontinue Klonopin. Hold on further weaning today as the patient seems to be quite sedated. Continue enteral feeding. Continue GI and DVT prophylaxis. Continue nutritional support. Remains critically ill, Critical care time is greater than 30 minutes. Time with Patient: Greater than 30
--- NOTE | 2020-06-07 15:08 | P.PN ---
Subjective Progress Note Date: 06/07/20 Marcos Perez is a 74 yo M with PMH of CAD, hx CVA with residual dementia, T2DM, HTN, HLD who is admitted s/p CABG. He is doing well today, hemodynamically stable and extubated, upright in chair. His sugars are controlled on insulin drip. Pt remains confused and agitated this morning, unable to remember the reason he is hospitalized and trying to remove lines and refusing oral medications. He has no specific concerns for me today. 05/24/2020 Seroquel initiated yesterday. 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 No further Haldol/Ativan since yesterday. Mediastinal chest tube removed. Currently on Cleveprex drip. Blood sugars controlled. Chest x-ray reporting continued mild pulmonary vascular congestion with slight improvement in bilateral base aeration. Prominent air persists below the right hemidiaphragm. Maintaining O2 sats in the 90s on 2 L nasal cannula. Afebrile, WBC 12.6. 05/25/2020 He remains on seroquel and precedex drip, he has been intermittently agitated pulling at lines and confused. Pt's vitals and glucose are well controlled today. CT head repeated and no interval change. Pt unable to take PO nutrition and enteral feedings started. 05/26/2020 Re-intubated during the night, FiO2 recently decreased to 25%/+5 of PEEP. ABGs noted. Chest x-ray reported improving lung markings with left base infiltrate.Continues on diprovan and small dose of Levophed drips. Tenacious secretions from endotracheal tube. Sputum culture pending. Afebrile. Urine culture pending. 05/29/20 remains vent dependent, FiO2 25%/+5 of PEEP. Continues on diprovan drip. Chest x-ray reporting continued small left effusion with left basilar retrocardiac atelectasis and/or consolidation. IV Levaquin initiated yesterday. Received a dose of Lasix yesterday with 24-hour I&O reflecting a negative fluid balance. T-max 100.1. Covid results pending. Urine and sputum cultures reporting no growth, blood cultures pending. Staff reports midsternal incision site with minimal serous drainage. Telemetry sinus rhythm. Blood sugars controlled on Levemir. PEG tube placed yesterday, tolerated procedure well. Resuming tube feeding today. 05/30/2020 chest x-ray reported no significant change .extubated early this morn ing, unable to tolerate, reintubated. ABGs noted. Maintained on 40% FiO2/+5 of PEEP. Sedated on diprovan drip. Scheduled for tracheostomy tomorrow. Received a dose of Lasix yesterday with 24-hour I&O reflecting nearly a zero balance.Continues on Levaquin. Sputum culture reporting normal respiratory mattie. Urine culture no growth at 18 hours .Blood sugars ranging from 150s to 250s. Received suppository yesterday, no bowel movement, receiving another suppository today. 05/31/2020 remains vent dependent, 40% FiO2/+5 of PEEP. .Scheduled for tracheostomy today. Chest x-ray reporting small bilateral pleural effusions, bibasilar infiltrates. Maintained on diprovan and insulin drips. No pressors. Blood sugars controlled Telemetry sinus rhythm. T-max 100.9, normal WBC. ABGs noted, bicarb 33. 06/05/2020 maintained on vent support with FiO2 40%/+ repeat. Chest x-ray reporting no significant change-low lung volumes, cardiomegaly with moderate central vascular congestion and probable small bilateral pleural effusions .Continues on Precedex and insulin drips. Status post trach and PEG.PEG tube requiring replacement yesterday secondary to patient pulling out. Tolerated procedure well. Significant improvement in agitation on Precedex. Blood sugars controlled. Sputum culture reporting via Serratia marcescens. Currently on Levaquin. 06/06/2020 remains vent dependent on 40% FiO2/+5 of PEEP. ABGs noted. Chest x- ray reporting no significant change from prior, low lung volumes mild to moderate vascular congestion, small left pleural effusion and bibasilar atelectasis and/or infiltrate. Tolerating tube feeds with minimal residuals. Febrile, T-max 99.8, WBC 10.8. 06/07/2020 remains vent dependent with FiO2 40%/+5 of PEEP. Tolerated CPAP trial yesterday. ABGs noted. Chest x-ray reporting no significant change -low lung volumes, cardiomegaly with mild to moderate central vascular congestion along with small left pleural effusion and bibasilar atelectasis and/or infiltrate left greater than right .Significant sedated, Seroquel and Klonopin held. T-max 99.8, normal WBC. Objective - Vital Signs Vital signs: Vital Signs Temp 99.1 F 06/07/20 12:00 Pulse 81 06/07/20 14:00 Resp 25 H 06/07/20 14:00 BP 102/58 06/07/20 14:00 Pulse Ox 98 06/07/20 14:00 Intake & Output 06/06/20 06/07/20 06/07/20 18:59 06:59 18:59 Intake Total 2138.323 1372.039 754.084 Output Total 118 620 Balance 2138.323 1254.039 134.084 Weight 90 kg 91.5 kg Intake: IV 240 240 160 LR 240 240 160 Intake, IV Titration 38.323 67.039 74.084 Amount Insulin Regular 100 unit 38.323 67.039 74.084 In Sodium Chloride 0.9% 100 ml @ Per Protocol IV .Q0M COUNT INCLUDES THE [facility] Rx#:[id number] Tube Feeding 1620 1005 520 Other 240 60 Output: Urine 118 620 Other: Voiding Method Diaper Indwelling Catheter Indwelling Catheter Incontinent # Voids 1 0 ABP, PAP, CO, CI - Last Documented Arterial Blood Pressure 103/42 Pulmonary Artery Pressure 32/15 Cardiac Output 4.4 Cardiac Index 2.2 - Exam General: Sedated, reintubated on mechanical ventilation, tracheostomy present. Eyes: PERRL, conjunctiva normal. HENT: normocephalic, atraumatic Neck: supple, no JVD. Tracheostomy present. Lungs: normal respiratory effort, bilateral bases diminished. Fine bibasilar crackles. Mediastinal incision site clean and dry. CV: Regular rate and rhythm, no murmur. Peripheral pulses 2+ Abdomen: soft, nondistended, no organomegaly, PEG tube present with minimal serous drainage around site. Umbilical hernia present. Skin: warm and dry. EXTREMITIES: No edema, clubbing or cyanosis. Neuro: Unable to evaluate ,sedated on mechanical ventilation - Labs CBC & Chem 7: 06/07/20 03:24 06/07/20 03:24 Labs: Abnormal Lab Results - Last 24 Hours (Table) 05/31/20 06/06/20 06/06/20 Range/Units 04:49 15:50 17:15 RBC (4.30-5.90) m/uL Hgb (13.0-17.5) gm/dL Hct (39.0-53.0) % Plt Count (150-450) k/uL ABG pH 7.57 H* (7.35-7.45) ABG HCO3 (21-25) mmol/L ABG Total CO2 (19-24) mmol/L ABG O2 Saturation (94-97) % Sodium (137-145) mmol/L Creatinine (0.66-1.25) mg/dL Glucose (74-99) mg/dL POC Glucose (mg/dL) 133 H 157 H (75-99) mg/dL Calcium (8.4-10.2) mg/dL 06/06/20 06/06/20 06/06/20 Range/Units 19:43 21:16 22:42 RBC (4.30-5.90) m/uL Hgb (13.0-17.5) gm/dL Hct (39.0-53.0) % Plt Count (150-450) k/uL ABG pH (7.35-7.45) ABG HCO3 (21-25) mmol/L ABG Total CO2 (19-24) mmol/L ABG O2 Saturation (94-97) % Sodium (137-145) mmol/L Creatinine (0.66-1.25) mg/dL Glucose (74-99) mg/dL POC Glucose (mg/dL) 135 H 182 H 175 H (75-99) mg/dL Calcium (8.4-10.2) mg/dL 06/07/20 06/07/20 06/07/20 Range/Units 00:50 03:24 03:24 RBC 3.28 L (4.30-5.90) m/uL Hgb 10.0 L (13.0-17.5) gm/dL Hct 30.0 L (39.0-53.0) % Plt Count 495 H (150-450) k/uL ABG pH (7.35-7.45) ABG HCO3 (21-25) mmol/L ABG Total CO2 (19-24) mmol/L ABG O2 Saturation (94-97) % Sodium 135 L (137-145) mmol/L Creatinine 0.58 L (0.66-1.25) mg/dL Glucose 148 H (74-99) mg/dL POC Glucose (mg/dL) 173 H (75-99) mg/dL Calcium 8.2 L (8.4-10.2) mg/dL 06/07/20 06/07/20 06/07/20 Range/Units 03:50 04:46 06:29 RBC (4.30-5.90) m/uL Hgb (13.0-17.5) gm/dL Hct (39.0-53.0) % Plt Count (150-450) k/uL ABG pH 7.49 H (7.35-7.45) ABG HCO3 33 H (21-25) mmol/L ABG Total CO2 35 H (19-24) mmol/L ABG O2 Saturation 98.7 H (94-97) % Sodium (137-145) mmol/L Creatinine (0.66-1.25) mg/dL Glucose (74-99) mg/dL POC Glucose (mg/dL) 175 H 194 H (75-99) mg/dL Calcium (8.4-10.2) mg/dL 06/07/20 06/07/20 06/07/20 Range/Units 07:21 08:58 11:17 RBC (4.30-5.90) m/uL Hgb (13.0-17.5) gm/dL Hct (39.0-53.0) % Plt Count (150-450) k/uL ABG pH (7.35-7.45) ABG HCO3 (21-25) mmol/L ABG Total CO2 (19-24) mmol/L ABG O2 Saturation (94-97) % Sodium (137-145) mmol/L Creatinine (0.66-1.25) mg/dL Glucose (74-99) mg/dL POC Glucose (mg/dL) 208 H 232 H 226 H (75-99) mg/dL Calcium (8.4-10.2) mg/dL 06/07/20 Range/Units 12:59 RBC (4.30-5.90) m/uL Hgb (13.0-17.5) gm/dL Hct (39.0-53.0) % Plt Count (150-450) k/uL ABG pH (7.35-7.45) ABG HCO3 (21-25) mmol/L ABG Total CO2 (19-24) mmol/L ABG O2 Saturation (94-97) % Sodium (137-145) mmol/L Creatinine (0.66-1.25) mg/dL Glucose (74-99) mg/dL POC Glucose (mg/dL) 236 H (75-99) mg/dL Calcium (8.4-10.2) mg/dL Assessment and Plan Assessment: (1) acute hypoxic respiratory failure, requiring reintubation X2. Failure to wean. Sputum culture with few Serratia marcescens. (2) Status post coronary artery bypass graft Current Visit: Yes Status: Acute Code(s): Z95.1 - PRESENCE OF AORTOCORONARY BYPASS GRAFT SNOMED Code(s): 088397120 (3)Triple vessel coronary artery disease Current Visit: Yes Status: Acute Code(s): I25.10 - ATHSCL HEART DISEASE OF [place] CORONARY ARTERY W/O ANG PCTRS SNOMED Code(s): 384792946 (4) History of CVA with residual deficit Current Visit: Yes Status: Acute Code(s): I69.30 - UNSPECIFIED SEQUELAE OF CEREBRAL INFARCTION SNOMED Code(s): 090632185 (5) Type 2 diabetes mellitus Current Visit: Yes Status: Acute Code(s): E11.9 - TYPE 2 DIABETES MELLITUS WITHOUT COMPLICATIONS SNOMED Code(s): 16958388 (6) Dementia Current Visit: Yes Status: Acute Code(s): F03.90 - UNSPECIFIED DEMENTIA WITHOUT BEHAVIORAL DISTURBANCE SNOMED Code(s): 09095839 (7) Cerebral infarction, remote, resolved Current Visit: No Status: Acute Code(s): Z86.73 - PRSNL HX OF TIA (TIA), AND CEREB INFRC W/O RESID DEFICITS SNOMED Code(s): 184782300 (8) PEG tube placement 2 (9) severe protein calorie malnutrition Plan: Continue current medication regime ,monitoring and symptomatic treatment. ICU management as per parking ramp attendant-weaning trials on hold for today. Seroquel dose decreased. Klonopin discontinued. Prognosis guarded given multiple complex medical issues. The impression and plan of care has been dictated as directed. : I performed a history and examination of this patient, discussed the same with the dictator. I agree with the dictator's note ,documented as a scribe. Any additional findings or plans will be noted.
[2020-06-07 15:34] LABS: Glucose,Whole Blood 125 mg/dL (75-99)
[2020-06-07 17:33] LABS: Glucose,Whole Blood 81 mg/dL (75-99)
[2020-06-07 17:33] LABS: Glucose,Whole Blood 82 mg/dL (75-99)
[2020-06-07 19:25] LABS: Glucose,Whole Blood 115 mg/dL (75-99)
[2020-06-07] MEDS: QUEtiapine 50 MG TAB PO SCH (20:11)
[2020-06-07 21:00] LABS: Glucose,Whole Blood 175 mg/dL (75-99)
[2020-06-07] MEDS ORDERED: QUEtiapine 100 MG TAB PO SCH (21:00)
[2020-06-07] MEDS: SENNOSIDES-DOCUSATE SODIUM 1 EACH TAB PO SCH (21:02)
[2020-06-07] MEDS: LEVOFLOXACIN 500MG-D5W PMX 500 MG in DEXTROSE/WATER 1 100ML.BAG IVPB SCH (21:07)
[2020-06-07 23:18] LABS: Glucose,Whole Blood 113 mg/dL (75-99)
[2020-06-08 00:55] LABS: Glucose,Whole Blood 180 mg/dL (75-99)
[2020-06-08 02:03] LABS: Glucose,Whole Blood 185 mg/dL (75-99)
[2020-06-08] MEDS: IPRATROPIUM-ALBUTEROL 3 ML NEB INHALATION SCH ×5 (02:10→19:06)
[2020-06-08 03:09] LABS: Glucose,Whole Blood 188 mg/dL (75-99)
[2020-06-08 03:51] LABS: Basophils # (A) 0.1 k/uL (0-0.2); Basophils % (A) 1 %; Eosinophils # (A) 0.2 k/uL (0-0.7); Eosinophils % (A) 2 %; HCT 26.5 % (39.0-53.0); HGB 8.6 gm/dL (13.0-17.5); Hypochromasia Slight; Lymphocytes # (A) 1.5 k/uL (1.0-4.8); Lymphocytes % (A) 14 %; MCH 29.9 pg (25.0-35.0); MCHC 32.4 g/dL (31.0-37.0); MCV 92.2 fL (80.0-100.0); Mean Platelet Volume 7.7; Monocytes # (A) 0.5 k/uL (0-1.0); Monocytes % (A) 4 %; Neutrophils # (A) 8.4 k/uL (1.3-7.7); Neutrophils % (A) 78 %; Platelet Count 567 k/uL (150-450); RBC 2.87 m/uL (4.30-5.90); RDW 14.4 % (11.5-15.5); WBC 10.7 k/uL (3.8-10.6)
[2020-06-08 04:14] LABS: ALT 15 U/L (4-49); AST 23 U/L (17-59); African American GFR (CKD) >90 (>60 ml/min/1.73 sqM); Albumin 2.3 g/dL (3.5-5.0); Alkaline Phosphatase 50 U/L (38-126); Anion Gap 5 mmol/L; Blood Urea Nitrogen 22 mg/dL (9-20); Calcium 8.2 mg/dL (8.4-10.2); Carbon Dioxide 28 mmol/L (22-30); Chloride 102 mmol/L (98-107); Glucose 164 mg/dL (74-99); Non-African American GFR(CKD) >90 (>60 ml/min/1.73 sqM); Potassium 3.8 mmol/L (3.5-5.1); Sodium 135 mmol/L (137-145); Total Bilirubin 0.5 mg/dL (0.2-1.3); Total Protein 5.1 g/dL (6.3-8.2)
[2020-06-08 04:19] LABS: Glucose,Whole Blood 160 mg/dL (75-99)
[2020-06-08 04:38] LABS: ABG Base Excess 9.5 mmol/L; ABG HCO3 33 mmol/L (21-25); ABG Oxygen Saturation 98.7 % (94-97); ABG PCO2 41 mmHg (35-45); ABG PH 7.51 (7.35-7.45); ABG PO2 113 mmHg (83-108); ABG TCO2 34 mmol/L (19-24); Allen Test Performed? Yes
[2020-06-08] MEDS ORDERED: POTASSIUM BICARBONATE/CIT AC 20 MEQ TABLET.EFF NG-TUBE SCH (05:00)
[2020-06-08] MEDS: HEPARIN SODIUM,PORCINE 5,000 UNIT/ML 1 ML VIAL SQ SCH ×3 (05:34→20:28)
[2020-06-08 05:42] LABS: Glucose,Whole Blood 111 mg/dL (75-99)
[2020-06-08 06:55] LABS: Glucose,Whole Blood 113 mg/dL (75-99)
[2020-06-08 08:19] LABS: Glucose,Whole Blood 154 mg/dL (75-99)
[2020-06-08] MEDS: CLOPIDOGREL 75 MG TAB PO SCH (08:20)
[2020-06-08] MEDS: ATORVASTATIN 40 MG TAB PO SCH (08:20)
[2020-06-08] MEDS: ASPIRIN 325 MG TAB PO SCH (08:20)
[2020-06-08] MEDS: CHLORHEXIDINE GLUCONATE 15 ML CUP MUCOUS MEM SCH ×2 (08:20→20:28)
[2020-06-08] MEDS: METOPROLOL TARTRATE 12.5 MG TAB PO SCH ×2 (08:20→20:29)
[2020-06-08] MEDS: lisinopriL 5 MG TAB PO SCH (08:20)
[2020-06-08] MEDS: PANTOPRAZOLE 40 MG/10 ML VIAL IVP SCH (08:21)
[2020-06-08] MEDS: polyethylene glycoL 3350 17 GM POWD.PACK PO SCH (08:54)
[2020-06-08] MEDS ORDERED: LIDOCAINE 1% INJ 10MG/ML (20 ML MDV) ONE (09:14)
[2020-06-08] MEDS ORDERED: INSULIN ASPART (NovoLOG) 100 UNIT/ML VIAL SQ SCH (09:30)
[2020-06-08] MEDS: INSULIN DETEMIR (LEVEMIR) 100 UNIT/ML SYR SQ SCH (10:12)
--- NOTE | 2020-06-08 10:40 | XR ---
EXAMINATION TYPE: XR chest 1V portable DATE OF EXAM: 06/08/2020 COMPARISON: 06/07/2020 INDICATION: Postop cardiac surgery TECHNIQUE: Single frontal view of the chest is obtained. FINDINGS: The heart size is enlarged. The pulmonary vasculature is normal. Small left pleural effusion may be present. Sternotomy wires patient's surgery are evident. Tracheost seun tube is in the midline. IMPRESSION: 1. Left lower lobe retrocardiac opacity with left pleural effusion.
--- NOTE | 2020-06-08 11:24 | P.PN ---
Subjective Progress Note Date: 06/08/20 Principal diagnosis: Unstable angina, severe calcific 3 vessel coronary artery disease. Previous medical history of recent stroke in November 2019 with continued short-term memory loss and impulsivity, cardiomyopathy with EF 45-50%, hypertension, hyperlipidemia, insulin-dependent diabetes with preoperative hemoglobin A1c 8%, asthma, previous tobacco dependence with preoperative FEV1 75% of predicted, and family history of premature coronary artery disease with father diagnosed less than 60 years old. POD #17 coronary artery bypass grafting 3 with the left internal mammary artery to the left anterior descending artery, reverse saphenous vein graft off the aorta to the first obtuse marginal artery and the posterior descending artery with endoscopic vein harvesting of the left lower extremity greater saphenous vein, clip ligation of the left atrial appendage with a 35 mm AtriClip and intraoperative transesophageal echocardiogram. Postoperative acute blood loss anemia and thrombocytopenia, expected outcomes given hemodilution and cardiopulmonary bypass pump Acute hypoxic respiratory failure requiring re-intubation, unexpected, likely from inability to clear secretions, prolonged mechanical ventilation POD #11 PEG tube placement POD #8 Tracheostomy placement The patient is laying in the ICU on mechanical ventilation, stable off sedation for over 48 hours. Remains in normal sinus rhythm, hemodynamically stable on no pressors. Does open his eyes, follows simple commands. Remains restrained as he is impulsive and does attempt to pull at his trach and PEG. Tube feeding continues. Currently on CPAP and tolerating well. Sputum culture from June 02 positive for Serratia which is sensitive to Levaquin, has remained afebrile since June 02. No other new concerns Objective - Vital Signs Vital signs: Vital Signs Temp 99.7 F H 06/08/20 08:00 Pulse 83 06/08/20 10:00 Resp 28 H 06/08/20 10:00 BP 118/60 06/08/20 10:00 Pulse Ox 96 06/08/20 10:00 Intake & Output 06/07/20 06/08/20 06/08/20 18:59 06:59 18:59 Intake Total 5151.293 2235.793 435 Output Total 740 475 160 Balance 460.948 780.793 275 Weight 89.9 kg 89.9 kg Intake: IV 240 240 80 LR 240 240 80 Intake, IV Titration 115.948 70.793 0 Amount Insulin Regular 100 unit 115.948 70.793 0 In Sodium Chloride 0.9% 100 ml @ Per Protocol IV .Q0M [facility] Rx#:[id number] Tube Feeding 845 845 325 Other 100 30 Output: Urine 740 475 160 Other: Voiding Method Indwelling Catheter Indwelling Catheter Indwelling Catheter # Bowel Movements 1 ABP, PAP, CO, CI - Last Documented Arterial Blood Pressure 103/42 Pulmonary Artery Pressure 32/15 Cardiac Output 4.4 Cardiac Index 2.2 - Constitutional General appearance: Present: cooperative, no acute distress - Respiratory Details: Lungs sounds diminished bilaterally. Respirations even, nonlabored on mechanical ventilation, currently on CPAP mode with pressure support of 12. ABGs this AM on those settings 7.51/41/113/33/98%/9.5 on 40% FiO2 and 5 of PEEP. 8.0 Shiley tracheostomy present - Cardiovascular Details: S1, S2 present. Regular rate and rhythm, sinus rhythm on telemetry with heart rate in the 70s. Sternum stable. Palpable peripheral pulses bilaterally. No edema present. Heart hugger in place, antiembolism stockings, SCDs present. - Gastrointestinal Gastrointestinal Comment(s): Abdomen soft, nontender, nondistended. Active bowel sounds present 4 quadr ants. PEG tube in place, feedings continue. Last BM 06/08/20 per nursing - Genitourinary Genitourinary Comment(s): Hearn present and clear, yellow urine, output 35-50 mL per hour overnight - Integumentary Integumentary Comment(s): Skin is warm and dry. Anterior chest incision well approximated. Left lower extremity EVH site well approximated without redness or drainage. PEG tube incision without redness. Trach incision with small amount serous drainage - Neurologic Neurologic: Present: CNII-XII intact - Musculoskeletal Musculoskeletal: Present: generalized weakness, right sided weakness - Psychiatric Psychiatric Comment(s): following some commands - Allied health notes Allied health notes reviewed: nursing - Labs CBC & Chem 7: 06/08/20 03:18 06/08/20 03:18 Labs: Abnormal Lab Results - Last 24 Hours (Table) 05/31/20 06/07/20 06/07/20 Range/Units 04:49 11:17 12:59 WBC (3.8-10.6) k/uL RBC (4.30-5.90) m/uL Hgb (13.0-17.5) gm/dL Hct (39.0-53.0) % Plt Count (150-450) k/uL Neutrophils # (1.3-7.7) k/uL ABG pH 7.57 H* (7.35-7.45) ABG pO2 (83-108) mmHg ABG HCO3 (21-25) mmol/L ABG Total CO2 (19-24) mmol/L ABG O2 Saturation (94-97) % Sodium (137-145) mmol/L BUN (9-20) mg/dL Creatinine (0.66-1.25) mg/dL Glucose (74-99) mg/dL POC Glucose (mg/dL) 226 H 236 H (75-99) mg/dL Calcium (8.4-10.2) mg/dL Total Protein (6.3-8.2) g/dL Albumin (3.5-5.0) g/dL 06/07/20 06/07/20 06/07/20 Range/Units 15:33 19:13 20:58 WBC (3.8-10.6) k/uL RBC (4.30-5.90) m/uL Hgb (13.0-17.5) gm/dL Hct (39.0-53.0) % Plt Count (150-450) k/uL Neutrophils # (1.3-7.7) k/uL ABG pH (7.35-7.45) ABG pO2 (83-108) mmHg ABG HCO3 (21-25) mmol/L ABG Total CO2 (19-24) mmol/L ABG O2 Saturation (94-97) % Sodium (137-145) mmol/L BUN (9-20) mg/dL Creatinine (0.66-1.25) mg/dL Glucose (74-99) mg/dL POC Glucose (mg/dL) 125 H 115 H 175 H (75-99) mg/dL Calcium (8.4-10.2) mg/dL Total Protein (6.3-8.2) g/dL Albumin (3.5-5.0) g/dL 06/07/20 06/08/20 06/08/20 Range/Units 23:16 00:53 02:02 WBC (3.8-10.6) k/uL RBC (4.30-5.90) m/uL Hgb (13.0-17.5) gm/dL Hct (39.0-53.0) % Plt Count (150-450) k/uL Neutrophils # (1.3-7.7) k/uL ABG pH (7.35-7.45) ABG pO2 (83-108) mmHg ABG HCO3 (21-25) mmol/L ABG Total CO2 (19-24) mmol/L ABG O2 Saturation (94-97) % Sodium (137-145) mmol/L BUN (9-20) mg/dL Creatinine (0.66-1.25) mg/dL Glucose (74-99) mg/dL POC Glucose (mg/dL) 113 H 180 H 185 H (75-99) mg/dL Calcium (8.4-10.2) mg/dL Total Protein (6.3-8.2) g/dL Albumin (3.5-5.0) g/dL 06/08/20 06/08/20 06/08/20 Range/Units 02:58 03:18 03:18 WBC 10.7 H (3.8-10.6) k/uL RBC 2.87 L (4.30-5.90) m/uL Hgb 8.6 L (13.0-17.5) gm/dL Hct 26.5 L (39.0-53.0) % Plt Count 567 H (150-450) k/uL Neutrophils # 8.4 H (1.3-7.7) k/uL ABG pH (7.35-7.45) ABG pO2 (83-108) mmHg ABG HCO3 (21-25) mmol/L ABG Total CO2 (19-24) mmol/L ABG O2 Saturation (94-97) % Sodium 135 L (137-145) mmol/L BUN 22 H (9-20) mg/dL Creatinine 0.58 L (0.66-1.25) mg/dL Glucose 164 H (74-99) mg/dL POC Glucose (mg/dL) 188 H (75-99) mg/dL Calcium 8.2 L (8.4-10.2) mg/dL Total Protein 5.1 L (6.3-8.2) g/dL Albumin 2.3 L (3.5-5.0) g/dL 06/08/20 06/08/20 06/08/20 Range/Units 04:16 04:35 05:40 WBC (3.8-10.6) k/uL RBC (4.30-5.90) m/uL Hgb (13.0-17.5) gm/dL Hct (39.0-53.0) % Plt Count (150-450) k/uL Neutrophils # (1.3-7.7) k/uL ABG pH 7.51 H (7.35-7.45) ABG pO2 113 H (83-108) mmHg ABG HCO3 33 H (21-25) mmol/L ABG Total CO2 34 H (19-24) mmol/L ABG O2 Saturation 98.7 H (94-97) % Sodium (137-145) mmol/L BUN (9-20) mg/dL Creatinine (0.66-1.25) mg/dL Glucose (74-99) mg/dL POC Glucose (mg/dL) 160 H 111 H (75-99) mg/dL Calcium (8.4-10.2) mg/dL Total Protein (6.3-8.2) g/dL Albumin (3.5-5.0) g/dL 06/08/20 06/08/20 Range/Units 06:53 08:18 WBC (3.8-10.6) k/uL RBC (4.30-5.90) m/uL Hgb (13.0-17.5) gm/dL Hct (39.0-53.0) % Plt Count (150-450) k/uL Neutrophils # (1.3-7.7) k/uL ABG pH (7.35-7.45) ABG pO2 (83-108) mmHg ABG HCO3 (21-25) mmol/L ABG Total CO2 (19-24) mmol/L ABG O2 Saturation (94-97) % Sodium (137-145) mmol/L BUN (9-20) mg/dL Creatinine (0.66-1.25) mg/dL Glucose (74-99) mg/dL POC Glucose (mg/dL) 113 H 154 H (75-99) mg/dL Calcium (8.4-10.2) mg/dL Total Protein (6.3-8.2) g/dL Albumin (3.5-5.0) g/dL - Imaging and Cardiology Chest x-ray: report reviewed, image reviewed Assessment and Plan Assessment: 1. Unstable angina, severe calcific 3 vessel coronary artery disease, status post three-vessel CABG 2. Recent stroke in November 2019 with continued short-term memory loss and impulsivity 3. Cardiomyopathy with EF 45-50% 4. Hypertension 5. Hyperlipidemia 6. Insulin-dependent diabetes with preoperative hemoglobin A1c 8% 7. Asthma 8. Previous tobacco dependence with preoperative FEV1 75% of predicted 9. Family history of premature coronary artery disease with father diagnosed less than 60 years old. 10. Postoperative acute blood loss anemia and thrombocytopenia, expected 11. Acute hypoxic respiratory failure requiring reintubation, unexpected 12. Metabolic alkalosis, hypokalemia 13. Malnutrition, s/p PEG tube placement 14. Prolonged mechanical ventilation, s/p tracheostomy placement Plan: 1. Continue aspirin, statin, Plavix, beta sarah therapy down PEG tube. 2. Ventilator managment, bronchodilators per pulmonology. Wean as tolerated, continue CPAP trial 3. Will monitor daily labs and x-rays. Electrolyte replacement per protocol. 4. GI/DVT prophylaxis 5. Pain control with current medication regimen 6. Insulin management per Dr. Tafoya 7. Continue tube feedings 8. Strict accurate intake and output, daily weight 9. Continue Seroquel, Clonopin 10. Reorient as needed. Work towards being able to remove restraints 11. Social work/case management on consult for discharge planning, patient will need LTAC, authorization in progress, plan is for LTAC tomorrow 12. More recommendations to follow based on patient's progress Time with Patient: Greater than 30
[2020-06-08] MEDS ORDERED: NA PHOS,M-B/NA PHOS,DI-BA 133 ML ENEMA RECTAL STA (11:56)
[2020-06-08 12:03] LABS: Glucose,Whole Blood 114 mg/dL (75-99)
[2020-06-08] MEDS: INSULIN ASPART (NovoLOG) 100 UNIT/ML VIAL SQ SCH ×3 (12:19→23:52)
--- NOTE | 2020-06-08 13:01 | P.PN ---
Subjective Progress Note Date: 06/08/20 CHIEF COMPLAINT: Patient is status post CABG HISTORY OF PRESENT ILLNESS: Patient remains in the ICU. He is intubated and on mechanical ventilation. He is off sedation and is awake. Patient is status pos t PEG tube placement. Patient is status post tracheostomy placement with Dr. Boone. Apparently patient pulled out his PEG tube over the weekend. PEG tube was reinserted by Dr. Zamora on 06/03/2020. Afebrile. WBC 10.7 Patient tolerating tube feedings. No further discharge noted from PEG tube site. Patient is being evaluated for possible transfer to select specialty tomorrow PHYSICAL EXAM: VITAL SIGNS: Reviewed. GENERAL: Well-developed in no acute distress. HEENT: No sclera icterus. Extraocular movements grossly intact. Moist buccal mucosa. Head is atraumatic, normocephalic. ABDOMEN: Soft. Nondistended. Nontender. PEG tube site clean dry and intact no discharge NEUROLOGIC: Intubated ASSESSMENT: 1. Coronary artery disease status post three-vessel CABG 2. Severe protein calorie malnutrition status post PEG tube placement PLAN: -Continue supportive care -Continue tube feedings Physician [employer] Specialist note has been reviewed by physician. Signing provider agrees with the documented findings, assessment, and plan of care. Objective - Vital Signs Vital signs: Vital Signs Temp 99.1 F 06/08/20 12:00 Pulse 84 06/08/20 12:52 Resp 30 H 06/08/20 12:00 BP 129/64 06/08/20 12:00 Pulse Ox 96 06/08/20 12:00 Intake & Output 06/07/20 06/08/20 06/08/20 18:59 06:59 18:59 Intake Total 0949.087 7426.793 475 Output Total 740 475 230 Balance 460.948 780.793 245 Weight 89.9 kg 89.9 kg Intake: IV 240 240 120 LR 240 240 120 Intake, IV Titration 115.948 70.793 0 Amount Insulin Regular 100 unit 115.948 70.793 0 In Sodium Chloride 0.9% 100 ml @ Per Protocol IV .Q0M [facility] Rx#:[id number] Tube Feeding 845 845 325 Other 100 30 Output: Urine 740 475 230 Other: Voiding Method Indwelling Catheter Indwelling Catheter Indwelling Catheter # Bowel Movements 1 ABP, PAP, CO, CI - Last Documented Arterial Blood Pressure 103/42 Pulmonary Artery Pressure 32/15 Cardiac Output 4.4 Cardiac Index 2.2 - Labs CBC & Chem 7: 06/08/20 03:18 06/08/20 03:18 Labs: Abnormal Lab Results - Last 24 Hours (Table) 06/07/20 06/07/20 06/07/20 Range/Units 12:59 15:33 19:13 WBC (3.8-10.6) k/uL RBC (4.30-5.90) m/uL Hgb (13.0-17.5) gm/dL Hct (39.0-53.0) % Plt Count (150-450) k/uL Neutrophils # (1.3-7.7) k/uL ABG pH (7.35-7.45) ABG pO2 (83-108) mmHg ABG HCO3 (21-25) mmol/L ABG Total CO2 (19-24) mmol/L ABG O2 Saturation (94-97) % Sodium (137-145) mmol/L BUN (9-20) mg/dL Creatinine (0.66-1.25) mg/dL Glucose (74-99) mg/dL POC Glucose (mg/dL) 236 H 125 H 115 H (75-99) mg/dL Calcium (8.4-10.2) mg/dL Total Protein (6.3-8.2) g/dL Albumin (3.5-5.0) g/dL 06/07/20 06/07/20 06/08/20 Range/Units 20:58 23:16 00:53 WBC (3.8-10.6) k/uL RBC (4.30-5.90) m/uL Hgb (13.0-17.5) gm/dL Hct (39.0-53.0) % Plt Count (150-450) k/uL Neutrophils # (1.3-7.7) k/uL ABG pH (7.35-7.45) ABG pO2 (83-108) mmHg ABG HCO3 (21-25) mmol/L ABG Total CO2 (19-24) mmol/L ABG O2 Saturation (94-97) % Sodium (137-145) mmol/L BUN (9-20) mg/dL Creatinine (0.66-1.25) mg/dL Glucose (74-99) mg/dL POC Glucose (mg/dL) 175 H 113 H 180 H (75-99) mg/dL Calcium (8.4-10.2) mg/dL Total Protein (6.3-8.2) g/dL Albumin (3.5-5.0) g/dL 06/08/20 06/08/20 06/08/20 Range/Units 02:02 02:58 03:18 WBC 10.7 H (3.8-10.6) k/uL RBC 2.87 L (4.30-5.90) m/uL Hgb 8.6 L (13.0-17.5) gm/dL Hct 26.5 L (39.0-53.0) % Plt Count 567 H (150-450) k/uL Neutrophils # 8.4 H (1.3-7.7) k/uL ABG pH (7.35-7.45) ABG pO2 (83-108) mmHg ABG HCO3 (21-25) mmol/L ABG Total CO2 (19-24) mmol/L ABG O2 Saturation (94-97) % Sodium (137-145) mmol/L BUN (9-20) mg/dL Creatinine (0.66-1.25) mg/dL Glucose (74-99) mg/dL POC Glucose (mg/dL) 185 H 188 H (75-99) mg/dL Calcium (8.4-10.2) mg/dL Total Protein (6.3-8.2) g/dL Albumin (3.5-5.0) g/dL 06/08/20 06/08/20 06/08/20 Range/Units 03:18 04:16 04:35 WBC (3.8-10.6) k/uL RBC (4.30-5.90) m/uL Hgb (13.0-17.5) gm/dL Hct (39.0-53.0) % Plt Count (150-450) k/uL Neutrophils # (1.3-7.7) k/uL ABG pH 7.51 H (7.35-7.45) ABG pO2 113 H (83-108) mmHg ABG HCO3 33 H (21-25) mmol/L ABG Total CO2 34 H (19-24) mmol/L ABG O2 Saturation 98.7 H (94-97) % Sodium 135 L (137-145) mmol/L BUN 22 H (9-20) mg/dL Creatinine 0.58 L (0.66-1.25) mg/dL Glucose 164 H (74-99) mg/dL POC Glucose (mg/dL) 160 H (75-99) mg/dL Calcium 8.2 L (8.4-10.2) mg/dL Total Protein 5.1 L (6.3-8.2) g/dL Albumin 2.3 L (3.5-5.0) g/dL 06/08/20 06/08/20 06/08/20 Range/Units 05:40 06:53 08:18 WBC (3.8-10.6) k/uL RBC (4.30-5.90) m/uL Hgb (13.0-17.5) gm/dL Hct (39.0-53.0) % Plt Count (150-450) k/uL Neutrophils # (1.3-7.7) k/uL ABG pH (7.35-7.45) ABG pO2 (83-108) mmHg ABG HCO3 (21-25) mmol/L ABG Total CO2 (19-24) mmol/L ABG O2 Saturation (94-97) % Sodium (137-145) mmol/L BUN (9-20) mg/dL Creatinine (0.66-1.25) mg/dL Glucose (74-99) mg/dL POC Glucose (mg/dL) 111 H 113 H 154 H (75-99) mg/dL Calcium (8.4-10.2) mg/dL Total Protein (6.3-8.2) g/dL Albumin (3.5-5.0) g/dL 06/08/20 Range/Units 11:46 WBC (3.8-10.6) k/uL RBC (4.30-5.90) m/uL Hgb (13.0-17.5) gm/dL Hct (39.0-53.0) % Plt Count (150-450) k/uL Neutrophils # (1.3-7.7) k/uL ABG pH (7.35-7.45) ABG pO2 (83-108) mmHg ABG HCO3 (21-25) mmol/L ABG Total CO2 (19-24) mmol/L ABG O2 Saturation (94-97) % Sodium (137-145) mmol/L BUN (9-20) mg/dL Creatinine (0.66-1.25) mg/dL Glucose (74-99) mg/dL POC Glucose (mg/dL) 114 H (75-99) mg/dL Calcium (8.4-10.2) mg/dL Total Protein (6.3-8.2) g/dL Albumin (3.5-5.0) g/dL
[2020-06-08] MEDS ORDERED: FUROSEMIDE 10 MG/ML 4 ML VIAL IV STA (13:44)
--- NOTE | 2020-06-08 15:08 | P.PN ---
Subjective Progress Note Date: 06/08/20 Principal diagnosis: Status post CABG, postoperative day # 17. 74-year-old male patient with post four-vessel bypass surgery. The patient is postop day #7 the patient underwent DOOLEY to LAD and saphenous vein graft to obtuse marginal and PDA. The patient has cardiomyopathy with ejection fraction of 45%. The patient has insulin-dependent diabetes mellitus and the patient has a previous history of CVA including with a short-term memory loss and impulsivity. Postextubation and currently the patient remains on a mechanical ventilator. His cardiac rhythm is sinus. He is hemodynamically stable. The patient remains on assist control mode of ventilation at the rate of 16 with a tidal volume of 450 and FiO2 of 25% and a PEEP of 5. He is post exhibition insertion and the patient will be started on feeding for nutritional support. Sedation is with propofol at a rate of 30mcg per KG per minute and insulin drip is running 4U units an hour for blood sugar control. Chest x-ray showing some retrocardiac infiltration and left basilar airspace disease. The patient is cu rrently on Levaquin as an empiric antibiotic coverage. The patient is on DuoNeb nebulized treatments around the clock, aspirin and Plavix and the patient is also on metoprolol 25 mg by mouth twice a day. The sputum culture has shown no growth. Urine cultures no growth. A CAT scan of the brain that showed no evidence of any acute intracranial hemorrhage or midline shift. This is unchanged compared to previous CT if the brain of November 2019. The blood gases from today showed a pH of 7.5 with a pCO2 of 40 and pO2 of 79. Peak airway pressures nonelevated at 22. X-ray showing cardiomegaly. If she was in a good location. The patient has pulmonary vessel congestion. There is also bowel loops on the right hemidiaphragm. There is also volume loss and the patient is smaller lung volumes. The patient was given a dose of Lasix 40 mg of push yesterday. His net fluid balance for yesterday is negative 255 mL. urine output is in order of 30-60 mL an hour. Patient is also on Seroquel 50 mg by mouth twice a day. He is on Levemir insulin was introduced for blood sugar control. Patient was reevaluated today on 06/05/20, patient is now postoperative day #14. Remains on mechanical ventilation, his ventilator settings are assist control rate of 16, volume is 400 FiO2 is 40% PEEP of 5. Patient remains on Precedex at 0.4 mg/kg/h, remains on lactated Ringer's at 50 mL per hour. And he is on insulin at 4.5 units per hour. Patient is status post CABG on 05/22. Extubated on 05/22. Reintubated on 05/25 extubated on 05/30 reintubated 05/30 underwent tracheostomy on 05/31 PEG tube placement on 05/31 and his PEG tube had to be replaced again on 06/03 because he pulled it off. Patient is arousable, but gets agitated easily Precedex seems to be helping significantly. Keeps the patient called, patient was also placed on multiple medications for his anxiety and extreme agitation, yet to be started today via PEG tube. Chest x-ray showed cardiomegaly and small bilateral pleural effusions. Left more so than right. CBC showed WBC 9.7 hemoglobin 8.8. ABG showed a pO2 of 84 pCO2 of 42 pH of 7.49 basic metabolic profile is normal renal profile is normal. Last pro-calcitonin was 0.08, low. Reevaluated today on 06/06/20, patient is postoperative day #15. Remains intubated and mechanically ventilated he is on assist control rate of 16 tidal volume is 400 FiO2 is 40% PEEP is 5. ABG showed a pO2 of 96 pCO2 of 42 pH of 7.51. Patient is not requiring any pressors, he did tolerate yesterday pressure support of 10 and CPAP most of the day. Had to be placed on assist control mode of mechanical ventilation overnight. Patient is drowsy but arousable and follows simple instructions. CBC is relatively normal. Electrolytes and renal profile are normal. Patient is on enteral feeding. Via PEG tube. Chest x-ray showed low lung volumes, mild to moderate vascular congestion, and possibly a small left pleural effusion with basilar atelectasis. Possible infiltrate Reevaluated today on 06/07/20, patient remains in the ICU, intubated and mechanically ventilated. His ventilator settings are assist control rate of 16 tidal volume is 400 FiO2 is 40% and PEEP is 5. Patient seems to be quite sedated this morning, opens eyes, but does not follow any instructions. Grimaces to deep painful stimuli, but again does not follow any instructions. Hence we went ahead and held his sedatives including his Seroquel and his Klonopin. And we'll likely adjust the dose of Seroquel down significantly. Patient remains on enteral feeding, he is receiving vital AF at 65 ML per hour. Again he seems to be quite sedated, he is hemodynamically stable, and does not seem to be in any distress. ABG today showed a pO2 of 96 pCO2 of 44 pH of 7.49. Basic metabolic profile is normal. CBC is relatively normal, hemoglobin is 10. Chest x-ray showed mostly lower lung volumes, cardiomegaly, mild vascular congestion, and small left pleural effusion right basilar atelectasis and dilated bowel loops on the right side below the right diaphragm. Reevaluated today on 06/08/20, patient remains in the ICU, intubated and mechanically ventilated. He remains on assist control rate of 16 tidal volume is 400 FiO2 is 40% and PEEP of 5. ABG today showed a pO2 of 113 pCO2 41 pH of 7.51. Patient is off all sedation is except he is on Seroquel, we discontinued his Klonopin, we have discontinued his propofol and his Precedex. Today the patient seems to be awake, this is actually the best I have seen him. Patient is following instructions, wiggling toes, squeezing hands, seems to be quite ap propriate. He remained generally weak. And definitely more awake today compared to what he was in the last few days. Hence I plan to give the patient a trial of pressure support of 10 and CPAP, I also plan to give the patient to 1 enema since he is not having true bowel movements for quite some time. He has a mucoid bowel movements. In the meantime we will continue to arrange for the patient is dressing the patient to LTAC. Chest x-ray showed left lower lobe atelectasis and small left pleural effusion. WBC count is 10.7 hemoglobin is 8.6. Electrolytes are normal. Patient is on IV fluid at 25 mL per hour, he is also on insulin at 8.5 units per hour. Objective - Vital Signs Vital signs: Vital Signs Temp 99.1 F 06/08/20 12:00 Pulse 90 06/08/20 14:00 Resp 26 H 06/08/20 14:00 BP 151/77 06/08/20 14:00 Pulse Ox 97 06/08/20 14:00 Intake & Output 06/07/20 06/08/20 06/08/20 18:59 06:59 18:59 Intake Total 8654.854 8901.793 1235 Output Total 740 475 330 Balance 460.948 780.793 905 Weight 89.9 kg 89.9 kg Intake: IV 240 240 160 LR 240 240 160 Intake, IV Titration 115.948 70.793 0 Amount Insulin Regular 100 unit 115.948 70.793 0 In Sodium Chloride 0.9% 100 ml @ Per Protocol IV .Q0M [facility] Rx#:[id number] Tube Feeding 815 194 7167 Other 100 30 Output: Urine 740 475 330 Other: Voiding Method Indwelling Catheter Indwelling Catheter Indwelling Catheter # Bowel Movements 1 ABP, PAP, CO, CI - Last Documented Arterial Blood Pressure 103/42 Pulmonary Artery Pressure 32/15 Cardiac Output 4.4 Cardiac Index 2.2 - Exam GENERAL EXAM: Revealed a 74-year-old white male on mechanical ventilation, tracheostomy is intact, in no distress, definitely more awake and more responsive today. HEAD: Normocephalic. Atraumatic. EYES: PERRLA, EOMI, no icterus. NOSE: Unremarkable. Nasal mucosa is normal. THROAT: Tracheostomy is intact and the #8 Shiley. NECK: No neck masses no stridor. CHEST: Symmetrical chest expansion, sternum is stable. Fine crackles and diminished breath sounds at the left base CVS: Normal S1 and S2, no S3 gallop ABDOMEN: Soft nontender no megaly no rebound no guarding. SKIN: No rashes no petechiae. CENTRAL NERVOUS SYSTEM: Arousable, follows instructions, and comprehending what he is being controlled. EXTREMITIES: No clubbing edema or cyanosis. - Labs CBC & Chem 7: 06/08/20 03:18 06/08/20 03:18 Labs: Abnormal Lab Results - Last 24 Hours (Table) 06/07/20 06/07/20 06/07/20 Range/Units 15:33 19:13 20:58 WBC (3.8-10.6) k/uL RBC (4.30-5.90) m/uL Hgb (13.0-17.5) gm/dL Hct (39.0-53.0) % Plt Count (150-450) k/uL Neutrophils # (1.3-7.7) k/uL ABG pH (7.35-7.45) ABG pO2 (83-108) mmHg ABG HCO3 (21-25) mmol/L ABG Total CO2 (19-24) mmol/L ABG O2 Saturation (94-97) % Sodium (137-145) mmol/L BUN (9-20) mg/dL Creatinine (0.66-1.25) mg/dL Glucose (74-99) mg/dL POC Glucose (mg/dL) 125 H 115 H 175 H (75-99) mg/dL Calcium (8.4-10.2) mg/dL Total Protein (6.3-8.2) g/dL Albumin (3.5-5.0) g/dL 06/07/20 06/08/20 06/08/20 Range/Units 23:16 00:53 02:02 WBC (3.8-10.6) k/uL RBC (4.30-5.90) m/uL Hgb (13.0-17.5) gm/dL Hct (39.0-53.0) % Plt Count (150-450) k/uL Neutrophils # (1.3-7.7) k/uL ABG pH (7.35-7.45) ABG pO2 (83-108) mmHg ABG HCO3 (21-25) mmol/L ABG Total CO2 (19-24) mmol/L ABG O2 Saturation (94-97) % Sodium (137-145) mmol/L BUN (9-20) mg/dL Creatinine (0.66-1.25) mg/dL Glucose (74-99) mg/dL POC Glucose (mg/dL) 113 H 180 H 185 H (75-99) mg/dL Calcium (8.4-10.2) mg/dL Total Protein (6.3-8.2) g/dL Albumin (3.5-5.0) g/dL 06/08/20 06/08/20 06/08/20 Range/Units 02:58 03:18 03:18 WBC 10.7 H (3.8-10.6) k/uL RBC 2.87 L (4.30-5.90) m/uL Hgb 8.6 L (13.0-17.5) gm/dL Hct 26.5 L (39.0-53.0) % Plt Count 567 H (150-450) k/uL Neutrophils # 8.4 H (1.3-7.7) k/uL ABG pH (7.35-7.45) ABG pO2 (83-108) mmHg ABG HCO3 (21-25) mmol/L ABG Total CO2 (19-24) mmol/L ABG O2 Saturation (94-97) % Sodium 135 L (137-145) mmol/L BUN 22 H (9-20) mg/dL Creatinine 0.58 L (0.66-1.25) mg/dL Glucose 164 H (74-99) mg/dL POC Glucose (mg/dL) 188 H (75-99) mg/dL Calcium 8.2 L (8.4-10.2) mg/dL Total Protein 5.1 L (6.3-8.2) g/dL Albumin 2.3 L (3.5-5.0) g/dL 06/08/20 06/08/20 06/08/20 Range/Units 04:16 04:35 05:40 WBC (3.8-10.6) k/uL RBC (4.30-5.90) m/uL Hgb (13.0-17.5) gm/dL Hct (39.0-53.0) % Plt Count (150-450) k/uL Neutrophils # (1.3-7.7) k/uL ABG pH 7.51 H (7.35-7.45) ABG pO2 113 H (83-108) mmHg ABG HCO3 33 H (21-25) mmol/L ABG Total CO2 34 H (19-24) mmol/L ABG O2 Saturation 98.7 H (94-97) % Sodium (137-145) mmol/L BUN (9-20) mg/dL Creatinine (0.66-1.25) mg/dL Glucose (74-99) mg/dL POC Glucose (mg/dL) 160 H 111 H (75-99) mg/dL Calcium (8.4-10.2) mg/dL Total Protein (6.3-8.2) g/dL Albumin (3.5-5.0) g/dL 06/08/20 06/08/20 06/08/20 Range/Units 06:53 08:18 11:46 WBC (3.8-10.6) k/uL RBC (4.30-5.90) m/uL Hgb (13.0-17.5) gm/dL Hct (39.0-53.0) % Plt Count (150-450) k/uL Neutrophils # (1.3-7.7) k/uL ABG pH (7.35-7.45) ABG pO2 (83-108) mmHg ABG HCO3 (21-25) mmol/L ABG Total CO2 (19-24) mmol/L ABG O2 Saturation (94-97) % Sodium (137-145) mmol/L BUN (9-20) mg/dL Creatinine (0.66-1.25) mg/dL Glucose (74-99) mg/dL POC Glucose (mg/dL) 113 H 154 H 114 H (75-99) mg/dL Calcium (8.4-10.2) mg/dL Total Protein (6.3-8.2) g/dL Albumin (3.5-5.0) g/dL Assessment and Plan Assessment: Impression: Status post CABG, postoperative day #17 Acute hypoxic respiratory failure and failure to wean, patient required tracheostomy and PEG tube placement, unexpected. Ischemic cardiomyopathy and LV dysfunction. Ejection fraction 45%. Dyslipidemia. Chronic mild intermittent asthma Type 2 diabetes Tobacco dependence syndrome Previous history of CVA in November 2019 Benign essential hypertension History of PEG tube placement 2. Extreme postoperative agitation seems to be improving now with just Seroquel only. And we'll continue the same dose. We'll try to avoid any other sedatives Recommendation: Continue ventilatory support. We'll give the patient a trial of pressure support and CPAP today. Continue Seroquel. We'll continue to pursue the issue of placement and this patient, as the patient will be difficult to wean from mechanical ventilation, Continue enteral feeding. Continue GI and DVT prophylaxis. Continue nutritional support. Discussed his condition with other staff members on the case Critical care time is greater than 30 minutes. Time with Patient: Greater than 30
[2020-06-08 17:44] LABS: Glucose,Whole Blood 296 mg/dL (75-99)
--- NOTE | 2020-06-08 17:57 | P.PN ---
Subjective Progress Note Date: 06/08/20 Marcos Perez is a 74 yo M with PMH of CAD, hx CVA with residual dementia, T2DM, HTN, HLD who is admitted s/p CABG. He is doing well today, hemodynamically stable and extubated, upright in chair. His sugars are controlled on insulin drip. Pt remains confused and agitated this morning, unable to remember the reason he is hospitalized and trying to remove lines and refusing oral medications. He has no specific concerns for me today. 05/24/2020 Seroquel initiated yesterday. 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 No further Haldol/Ativan since yesterday. Mediastinal chest tube removed. Currently on Cleveprex drip. Blood sugars controlled. Chest x-ray reporting continued mild pulmonary vascular congestion with slight improvement in bilateral base aeration. Prominent air persists below the right hemidiaphragm. Maintaining O2 sats in the 90s on 2 L nasal cannula. Afebrile, WBC 12.6. 05/25/2020 He remains on seroquel and precedex drip, he has been intermittently agitated pulling at lines and confused. Pt's vitals and glucose are well controlled today. CT head repeated and no interval change. Pt unable to take PO nutrition and enteral feedings started. 05/26/2020 Re-intubated during the night, FiO2 recently decreased to 25%/+5 of PEEP. ABGs noted. Chest x-ray reported improving lung markings with left base infiltrate.Continues on diprovan and small dose of Levophed drips. Tenacious secretions from endotracheal tube. Sputum culture pending. Afebrile. Urine culture pending. 05/29/20 remains vent dependent, FiO2 25%/+5 of PEEP. Continues on diprovan drip. Chest x-ray reporting continued small left effusion with left basilar retrocardiac atelectasis and/or consolidation. IV Levaquin initiated yesterday. Received a dose of Lasix yesterday with 24-hour I&O reflecting a negative fluid balance. T-max 100.1. Covid results pending. Urine and sputum cultures reporting no growth, blood cultures pending. Staff reports midsternal incision site with minimal serous drainage. Telemetry sinus rhythm. Blood sugars controlled on Levemir. PEG tube placed yesterday, tolerated procedure well. Resuming tube feeding today. 05/30/2020 chest x-ray reported no significant change .extubated early this morn ing, unable to tolerate, reintubated. ABGs noted. Maintained on 40% FiO2/+5 of PEEP. Sedated on diprovan drip. Scheduled for tracheostomy tomorrow. Received a dose of Lasix yesterday with 24-hour I&O reflecting nearly a zero balance.Continues on Levaquin. Sputum culture reporting normal respiratory mattie. Urine culture no growth at 18 hours .Blood sugars ranging from 150s to 250s. Received suppository yesterday, no bowel movement, receiving another suppository today. 05/31/2020 remains vent dependent, 40% FiO2/+5 of PEEP. .Scheduled for tracheostomy today. Chest x-ray reporting small bilateral pleural effusions, bibasilar infiltrates. Maintained on diprovan and insulin drips. No pressors. Blood sugars controlled Telemetry sinus rhythm. T-max 100.9, normal WBC. ABGs noted, bicarb 33. 06/05/2020 maintained on vent support with FiO2 40%/+ repeat. Chest x-ray reporting no significant change-low lung volumes, cardiomegaly with moderate central vascular congestion and probable small bilateral pleural effusions .Continues on Precedex and insulin drips. Status post trach and PEG.PEG tube requiring replacement yesterday secondary to patient pulling out. Tolerated procedure well. Significant improvement in agitation on Precedex. Blood sugars controlled. Sputum culture reporting via Serratia marcescens. Currently on Levaquin. 06/06/2020 remains vent dependent on 40% FiO2/+5 of PEEP. ABGs noted. Chest x- ray reporting no significant change from prior, low lung volumes mild to moderate vascular congestion, small left pleural effusion and bibasilar atelectasis and/or infiltrate. Tolerating tube feeds with minimal residuals. Febrile, T-max 99.8, WBC 10.8. 06/07/2020 remains vent dependent with FiO2 40%/+5 of PEEP. Tolerated CPAP trial yesterday. ABGs noted. Chest x-ray reporting no significant change -low lung volumes, cardiomegaly with mild to moderate central vascular congestion along with small left pleural effusion and bibasilar atelectasis and/or infiltrate left greater than right .Significant sedated, Seroquel and Klonopin held. T-max 99.8, normal WBC. 06/08/2020 sedation adjusted yesterday with significant clinical improvement. Alert, following simple commands .Scheduled for CPAP trial today. Vent dependent with FiO2 40%/+ 5 PEEP. Chest x-ray reporting left lower lobe atelectasis, small left pleural effusion. Tolerating tube feeds at goal with minimal to no residual. Continues on insulin drip. Blood sugars currently controlled, fluctuating. T-max 99.7, CBC 10.7. Preparing for transfer to [facility]. Objective - Vital Signs Vital signs: Vital Signs Temp 99.2 F 06/08/20 16:00 Pulse 83 06/08/20 17:00 Resp 39 H 06/08/20 17:00 BP 131/75 06/08/20 17:00 Pulse Ox 98 06/08/20 17:00 Intake & Output 06/07/20 06/08/20 06/08/20 18:59 06:59 18:59 Intake Total 4994.146 0269.793 1255 Output Total 740 475 390 Balance 460.948 780.793 865 Weight 89.9 kg 89.9 kg Intake: IV 240 240 180 LR 240 240 180 Intake, IV Titration 115.948 70.793 0 Amount Insulin Regular 100 unit 115.948 70.793 0 In Sodium Chloride 0.9% 100 ml @ Per Protocol IV .Q0M [facility] Rx#:[id number] Tube Feeding 175 152 6236 Other 100 30 Output: Urine 740 475 390 Other: Voiding Method Indwelling Catheter Indwelling Catheter Indwelling Catheter # Bowel Movements 1 ABP, PAP, CO, CI - Last Documented Arterial Blood Pressure 103/42 Pulmonary Artery Pressure 32/15 Cardiac Output 4.4 Cardiac Index 2.2 - Exam General: Sedated, reintubated on mechanical ventilation, tracheostomy present. Much more awake, alert. Eyes: PERRL, conjunctiva normal. HENT: normocephalic, atraumatic Neck: supple, no JVD. Tracheostomy present. Lungs: normal respiratory effort, bilateral bases diminished. Fine bibasilar crackles. Mediastinal incision site clean and dry. CV: Regular rate and rhythm, no murmur. Peripheral pulses 2+ Abdomen: soft, nondistended, no organomegaly, PEG tube present, positive bowel sounds Skin: warm and dry. No rash. EXTREMITIES: No edema, clubbing or cyanosis. Neuro: Alert, following simple commands, weak, on mechanical ventilation. - Labs CBC & Chem 7: 06/08/20 03:18 06/08/20 03:18 Labs: Abnormal Lab Results - Last 24 Hours (Table) 06/07/20 06/07/20 06/07/20 Range/Units 19:13 20:58 23:16 WBC (3.8-10.6) k/uL RBC (4.30-5.90) m/uL Hgb (13.0-17.5) gm/dL Hct (39.0-53.0) % Plt Count (150-450) k/uL Neutrophils # (1.3-7.7) k/uL ABG pH (7.35-7.45) ABG pO2 (83-108) mmHg ABG HCO3 (21-25) mmol/L ABG Total CO2 (19-24) mmol/L ABG O2 Saturation (94-97) % Sodium (137-145) mmol/L BUN (9-20) mg/dL Creatinine (0.66-1.25) mg/dL Glucose (74-99) mg/dL POC Glucose (mg/dL) 115 H 175 H 113 H (75-99) mg/dL Calcium (8.4-10.2) mg/dL Total Protein (6.3-8.2) g/dL Albumin (3.5-5.0) g/dL 06/08/20 06/08/20 06/08/20 Range/Units 00:53 02:02 02:58 WBC (3.8-10.6) k/uL RBC (4.30-5.90) m/uL Hgb (13.0-17.5) gm/dL Hct (39.0-53.0) % Plt Count (150-450) k/uL Neutrophils # (1.3-7.7) k/uL ABG pH (7.35-7.45) ABG pO2 (83-108) mmHg ABG HCO3 (21-25) mmol/L ABG Total CO2 (19-24) mmol/L ABG O2 Saturation (94-97) % Sodium (137-145) mmol/L BUN (9-20) mg/dL Creatinine (0.66-1.25) mg/dL Glucose (74-99) mg/dL POC Glucose (mg/dL) 180 H 185 H 188 H (75-99) mg/dL Calcium (8.4-10.2) mg/dL Total Protein (6.3-8.2) g/dL Albumin (3.5-5.0) g/dL 06/08/20 06/08/20 06/08/20 Range/Units 03:18 03:18 04:16 WBC 10.7 H (3.8-10.6) k/uL RBC 2.87 L (4.30-5.90) m/uL Hgb 8.6 L (13.0-17.5) gm/dL Hct 26.5 L (39.0-53.0) % Plt Count 567 H (150-450) k/uL Neutrophils # 8.4 H (1.3-7.7) k/uL ABG pH (7.35-7.45) ABG pO2 (83-108) mmHg ABG HCO3 (21-25) mmol/L ABG Total CO2 (19-24) mmol/L ABG O2 Saturation (94-97) % Sodium 135 L (137-145) mmol/L BUN 22 H (9-20) mg/dL Creatinine 0.58 L (0.66-1.25) mg/dL Glucose 164 H (74-99) mg/dL POC Glucose (mg/dL) 160 H (75-99) mg/dL Calcium 8.2 L (8.4-10.2) mg/dL Total Protein 5.1 L (6.3-8.2) g/dL Albumin 2.3 L (3.5-5.0) g/dL 06/08/20 06/08/20 06/08/20 Range/Units 04:35 05:40 06:53 WBC (3.8-10.6) k/uL RBC (4.30-5.90) m/uL Hgb (13.0-17.5) gm/dL Hct (39.0-53.0) % Plt Count (150-450) k/uL Neutrophils # (1.3-7.7) k/uL ABG pH 7.51 H (7.35-7.45) ABG pO2 113 H (83-108) mmHg ABG HCO3 33 H (21-25) mmol/L ABG Total CO2 34 H (19-24) mmol/L ABG O2 Saturation 98.7 H (94-97) % Sodium (137-145) mmol/L BUN (9-20) mg/dL Creatinine (0.66-1.25) mg/dL Glucose (74-99) mg/dL POC Glucose (mg/dL) 111 H 113 H (75-99) mg/dL Calcium (8.4-10.2) mg/dL Total Protein (6.3-8.2) g/dL Albumin (3.5-5.0) g/dL 06/08/20 06/08/20 06/08/20 Range/Units 08:18 11:46 17:42 WBC (3.8-10.6) k/uL RBC (4.30-5.90) m/uL Hgb (13.0-17.5) gm/dL Hct (39.0-53.0) % Plt Count (150-450) k/uL Neutrophils # (1.3-7.7) k/uL ABG pH (7.35-7.45) ABG pO2 (83-108) mmHg ABG HCO3 (21-25) mmol/L ABG Total CO2 (19-24) mmol/L ABG O2 Saturation (94-97) % Sodium (137-145) mmol/L BUN (9-20) mg/dL Creatinine (0.66-1.25) mg/dL Glucose (74-99) mg/dL POC Glucose (mg/dL) 154 H 114 H 296 H (75-99) mg/dL Calcium (8.4-10.2) mg/dL Total Protein (6.3-8.2) g/dL Albumin (3.5-5.0) g/dL Assessment and Plan Assessment: (1) acute hypoxic respiratory failure, requiring reintubation X2. Failure to wean. Sputum culture with few Serratia marcescens. (2) Status post coronary artery bypass graft Current Visit: Yes Status: Acute Code(s): Z95.1 - PRESENCE OF AORTOCORONARY BYPASS GRAFT SNOMED Code(s): 506771095 (3)Triple vessel coronary artery disease Current Visit: Yes Status: Acute Code(s): I25.10 - ATHSCL HEART DISEASE OF [place] CORONARY ARTERY W/O ANG PCTRS SNOMED Code(s): 654691498 (4) History of CVA with residual deficit Current Visit: Yes Status: Acute Code(s): I69.30 - UNSPECIFIED SEQUELAE OF CEREBRAL INFARCTION SNOMED Code(s): 929634821 (5) Type 2 diabetes mellitus Current Visit: Yes Status: Acute Code(s): E11.9 - TYPE 2 DIABETES MELLITUS WITHOUT COMPLICATIONS SNOMED Code(s): 42450941 (6) Dementia Current Visit: Yes Status: Acute Code(s): F03.90 - UNSPECIFIED DEMENTIA WITHOUT BEHAVIORAL DISTURBANCE SNOMED Code(s): 60155228 (7) Cerebral infarction, remote, resolved Current Visit: No Status: Acute Code(s): Z86.73 - PRSNL HX OF TIA (TIA), AND CEREB INFRC W/O RESID DEFICITS SNOMED Code(s): 207792341 (8) PEG tube placement 2 (9) severe protein calorie malnutrition Plan: Continue current medication regime ,monitoring and symptomatic treatment. CPAP trial today ,pending. Intensivists/cardiothoracic surgery discussing transfer to LTAC. Prognosis guarded given multiple complex medical issues. The impression and plan of care has been dictated as directed. : I performed a history and examination of this patient, discussed the same with the dictator. I agree with the dictator's note ,documented as a scribe. Any additional findings or plans will be noted.
[2020-06-08] MEDS: SENNOSIDES-DOCUSATE SODIUM 1 EACH TAB PO SCH (20:29)
[2020-06-08] MEDS: QUEtiapine 50 MG TAB PO SCH (20:29)
[2020-06-08] MEDS: LEVOFLOXACIN 500MG-D5W PMX 500 MG in DEXTROSE/WATER 1 100ML.BAG IVPB SCH (23:43)
[2020-06-08] MEDS: LACTATED RINGERS 1,000 ML IV SCH (23:43)
[2020-06-08 23:52] LABS: Glucose,Whole Blood 207 mg/dL (75-99)
[2020-06-09] MEDS: IPRATROPIUM-ALBUTEROL 3 ML NEB INHALATION SCH ×5 (00:06→16:31)
[2020-06-09 03:45] LABS: HCT 25.9 % (39.0-53.0); HGB 8.4 gm/dL (13.0-17.5); Hypochromasia Slight; MCH 29.3 pg (25.0-35.0); MCHC 32.6 g/dL (31.0-37.0); MCV 89.7 fL (80.0-100.0); Mean Platelet Volume 7.5; Platelet Count 574 k/uL (150-450); RBC 2.88 m/uL (4.30-5.90); RDW 14.3 % (11.5-15.5); WBC 9.7 k/uL (3.8-10.6)
[2020-06-09 03:54] LABS: African American GFR (CKD) >90 (>60 ml/min/1.73 sqM); Anion Gap 2 mmol/L; Blood Urea Nitrogen 20 mg/dL (9-20); Calcium 8.3 mg/dL (8.4-10.2); Carbon Dioxide 33 mmol/L (22-30); Chloride 101 mmol/L (98-107); Glucose 180 mg/dL (74-99); Non-African American GFR(CKD) >90 (>60 ml/min/1.73 sqM); Potassium 3.8 mmol/L (3.5-5.1); Sodium 136 mmol/L (137-145)
[2020-06-09] MEDS ORDERED: POTASSIUM BICARBONATE/CIT AC 20 MEQ TABLET.EFF NG-TUBE SCH (05:00)
[2020-06-09 05:01] LABS: Glucose,Whole Blood 227 mg/dL (75-99)
[2020-06-09] MEDS: INSULIN ASPART (NovoLOG) 100 UNIT/ML VIAL SQ SCH ×3 (05:03→17:24)
[2020-06-09] MEDS: HEPARIN SODIUM,PORCINE 5,000 UNIT/ML 1 ML VIAL SQ SCH ×2 (05:03→13:52)
[2020-06-09 05:20] LABS: ABG Base Excess 9.9 mmol/L; ABG HCO3 33 mmol/L (21-25); ABG Oxygen Saturation 98.7 % (94-97); ABG PCO2 42 mmHg (35-45); ABG PO2 94 mmHg (83-108); ABG TCO2 34 mmol/L (19-24); Allen Test Performed? Yes
[2020-06-09] MEDS: INSULIN DETEMIR (LEVEMIR) 100 UNIT/ML SYR SQ SCH (06:34)
--- NOTE | 2020-06-09 07:56 | XR ---
EXAMINATION TYPE: XR chest 1V portable DATE OF EXAM: 06/09/2020 COMPARISON: 06/08/2020 HISTORY: SOB, Follow Up FINDINGS: Tracheostomy tube is in place. Lung volumes are diminished. No change in bibasilar opacities. Stable appearance of the cardio-mediastinal structures at this time. IMPRESSION: 1. Stable portable chest. Clinical correlation and follow up until resolution is recommended.
[2020-06-09] MEDS ORDERED: FUROSEMIDE 10 MG/ML 2 ML VIAL IV STA (08:24)
--- NOTE | 2020-06-09 08:39 | P.PN ---
Subjective Progress Note Date: 06/09/20 Principal diagnosis: Unstable angina, severe calcific 3 vessel coronary artery disease. Previous medical history of recent stroke in November 2019 with continued short-term memory loss and impulsivity, cardiomyopathy with EF 45-50%, hypertension, hyperlipidemia, insulin-dependent diabetes with preoperative hemoglobin A1c 8%, asthma, previous tobacco dependence with preoperative FEV1 75% of predicted, and family history of premature coronary artery disease with father diagnosed less than 60 years old. POD #18 coronary artery bypass grafting 3 with the left internal mammary artery to the left anterior descending artery, reverse saphenous vein graft off the aorta to the first obtuse marginal artery and the posterior descending artery with endoscopic vein harvesting of the left lower extremity greater saphenous vein, clip ligation of the left atrial appendage with a 35 mm AtriClip and intraoperative transesophageal echocardiogram. Postoperative acute blood loss anemia and thrombocytopenia, expected outcomes given hemodilution and cardiopulmonary bypass pump Acute hypoxic respiratory failure requiring re-intubation, unexpected, likely from inability to clear secretions, prolonged mechanical ventilation POD #12 PEG tube placement POD #9 Tracheostomy placement The patient is laying in the ICU on mechanical ventilation, stable. Remains in normal sinus rhythm, hemodynamically stable on no pressors. Does open his eyes, follows simple commands, common cooperative. Remains restrained as he is impulsive and does attempt to pull at his trach and PEG. Tube feeding continues with bolus feedings. Daily CPAP trials being completed by pulmonology. Sputum culture from June 02 positive for Serratia which is sensitive to Levaquin, has remained afebrile since June 02. Insurance authorization initiated [facility] Patient received enema yesterday per pulmonology with positive stool. No other new concerns Objective - Vital Signs Vital signs: Vital Signs Temp 99 F 06/09/20 04:00 Pulse 76 06/09/20 07:00 Resp 25 H 06/09/20 07:00 BP 102/53 06/09/20 07:00 Pulse Ox 98 06/09/20 07:00 Intake & Output 06/08/20 06/09/20 06/09/20 18:59 06:59 18:59 Intake Total 1675 990 20 Output Total 1130 525 35 Balance 545 465 -15 Weight 89.9 kg 88.7 kg Intake: IV 240 240 20 LR 240 240 20 Intake, IV Titration 0 Amount Insulin Regular 100 unit 0 In Sodium Chloride 0.9% 100 ml @ Per Protocol IV .Q0M [facility] Rx#:[id number] Tube Feeding 1405 720 Other 30 30 Output: Urine 1130 525 35 Other: Voiding Method Indwelling Catheter Indwelling Catheter ABP, PAP, CO, CI - Last Documented Arterial Blood Pressure 103/42 Pulmonary Artery Pressure 32/15 Cardiac Output 4.4 Cardiac Index 2.2 - Constitutional General appearance: Present: cooperative, no acute distress - Respiratory Details: Lungs sounds diminished bilaterally. Respirations even, nonlabored on mechanical ventilation, currently on assist control mode with FiO2 40%, tidal volume 400, respiratory rate 16, PEEP 5. ABGs this AM on those settings 7.5/42/94/33/98%/9.9 on those settings. 8.0 Shiley tracheostomy present - Cardiovascular Details: S1, S2 present. Regular rate and rhythm, sinus rhythm on telemetry with heart rate in the 70s. Sternum stable. Palpable peripheral pulses bilaterally. No edema present. Heart hugger in place, antiembolism stockings, SCDs present. - Gastrointestinal Gastrointestinal Comment(s): Abdomen soft, nontender, nondistended. Active bowel sounds present 4 q uadrants. PEG tube in place, bolus tube feedings continue. Last BM 06/08/20 per nursing - Genitourinary Genitourinary Comment(s): Hearn present and clear, yellow urine, output 30-50 mL per hour overnight, 740 mL after Lasix given yesterday, 1625 mL the last 24 hours - Integumentary Integumentary Comment(s): Skin is warm and dry. Anterior chest incision well approximated. Left lower extremity EVH site well approximated without redness or drainage. PEG tube incision without redness. Trach incision without drainage - Neurologic Neurologic: Present: CNII-XII intact - Musculoskeletal Musculoskeletal Comment(s): Moves all extremities, right is weaker than the left which has been present since prior to surgery - Psychiatric Psychiatric Comment(s): Follows commands - Allied health notes Allied health notes reviewed: nursing - Labs CBC & Chem 7: 06/09/20 03:11 06/09/20 03:11 Labs: Abnormal Lab Results - Last 24 Hours (Table) 06/08/20 06/08/20 06/08/20 Range/Units 11:46 17:42 23:49 RBC (4.30-5.90) m/uL Hgb (13.0-17.5) gm/dL Hct (39.0-53.0) % Plt Count (150-450) k/uL ABG pH (7.35-7.45) ABG HCO3 (21-25) mmol/L ABG Total CO2 (19-24) mmol/L ABG O2 Saturation (94-97) % Sodium (137-145) mmol/L Carbon Dioxide (22-30) mmol/L Creatinine (0.66-1.25) mg/dL Glucose (74-99) mg/dL POC Glucose (mg/dL) 114 H 296 H 207 H (75-99) mg/dL Calcium (8.4-10.2) mg/dL 06/09/20 06/09/20 06/09/20 Range/Units 03:11 03:11 04:59 RBC 2.88 L (4.30-5.90) m/uL Hgb 8.4 L (13.0-17.5) gm/dL Hct 25.9 L (39.0-53.0) % Plt Count 574 H (150-450) k/uL ABG pH (7.35-7.45) ABG HCO3 (21-25) mmol/L ABG Total CO2 (19-24) mmol/L ABG O2 Saturation (94-97) % Sodium 136 L (137-145) mmol/L Carbon Dioxide 33 H (22-30) mmol/L Creatinine 0.56 L (0.66-1.25) mg/dL Glucose 180 H (74-99) mg/dL POC Glucose (mg/dL) 227 H (75-99) mg/dL Calcium 8.3 L (8.4-10.2) mg/dL 06/09/20 Range/Units 05:11 RBC (4.30-5.90) m/uL Hgb (13.0-17.5) gm/dL Hct (39.0-53.0) % Plt Count (150-450) k/uL ABG pH 7.50 H (7.35-7.45) ABG HCO3 33 H (21-25) mmol/L ABG Total CO2 34 H (19-24) mmol/L ABG O2 Saturation 98.7 H (94-97) % Sodium (137-145) mmol/L Carbon Dioxide (22-30) mmol/L Creatinine (0.66-1.25) mg/dL Glucose (74-99) mg/dL POC Glucose (mg/dL) (75-99) mg/dL Calcium (8.4-10.2) mg/dL - Imaging and Cardiology Chest x-ray: report reviewed, image reviewed Assessment and Plan Assessment: 1. Unstable angina, severe calcific 3 vessel coronary artery disease, status post three-vessel CABG 2. Recent stroke in November 2019 with continued short-term memory loss and i mpulsivity 3. Cardiomyopathy with EF 45-50% 4. Hypertension 5. Hyperlipidemia 6. Insulin-dependent diabetes with preoperative hemoglobin A1c 8% 7. Asthma 8. Previous tobacco dependence with preoperative FEV1 75% of predicted 9. Family history of premature coronary artery disease with father diagnosed less than 60 years old. 10. Postoperative acute blood loss anemia and thrombocytopenia, expected 11. Acute hypoxic respiratory failure requiring reintubation, unexpected 12. Metabolic alkalosis, hypokalemia 13. Malnutrition, s/p PEG tube placement 14. Prolonged mechanical ventilation, s/p tracheostomy placement Plan: 1. Continue aspirin, statin, Plavix, beta sarah therapy down PEG tube. 2. Ventilator managment, bronchodilators per pulmonology. Wean as tolerated, continue CPAP trial 3. Will monitor daily labs and x-rays. Electrolyte replacement per protocol. 4. GI/DVT prophylaxis 5. Pain control with current medication regimen 6. Insulin management per Dr. Tafoya 7. Continue tube feedings 8. Strict accurate intake and output, daily weight 9. Continue Seroquel 10. Reorient as needed. Work towards being able to remove restraints 11. Social work/case management on consult for discharge planning, patient will need LTAC, authorization in progress, plan is for LTAC when authorization obtained 12. More recommendations to follow based on patient's progress Time with Patient: Greater than 30
[2020-06-09] MEDS: CHLORHEXIDINE GLUCONATE 15 ML CUP MUCOUS MEM SCH (09:25)
[2020-06-09] MEDS: ASPIRIN 325 MG TAB PO SCH (09:25)
[2020-06-09] MEDS: lisinopriL 5 MG TAB PO SCH (09:25)
[2020-06-09] MEDS: PANTOPRAZOLE 40 MG/10 ML VIAL IVP SCH (09:25)
[2020-06-09] MEDS: CLOPIDOGREL 75 MG TAB PO SCH (09:25)
[2020-06-09] MEDS: METOPROLOL TARTRATE 12.5 MG TAB PO SCH (09:25)
[2020-06-09] MEDS: ATORVASTATIN 40 MG TAB PO SCH (09:25)
[2020-06-09] MEDS ORDERED: FUROSEMIDE 10 MG/ML 4 ML VIAL IV STA (10:09)
[2020-06-09] MEDS ORDERED: FUROSEMIDE 10 MG/ML 2 ML VIAL IV ONE (10:27)
[2020-06-09] MEDS: polyethylene glycoL 3350 17 GM POWD.PACK PO SCH (10:51)
[2020-06-09 11:42] LABS: Glucose,Whole Blood 265 mg/dL (75-99)
--- NOTE | 2020-06-09 12:36 | P.PN ---
Subjective Progress Note Date: 06/09/20 CHIEF COMPLAINT: Patient is status post CABG HISTORY OF PRESENT ILLNESS: Patient remains in the ICU. He is intubated and on mechanical ventilation. He is off sedation and is awake. Patient is status pos t PEG tube placement. Patient is status post tracheostomy placement with Dr. Boone. Apparently patient pulled out his PEG tube over the weekend. PEG tube was reinserted by Dr. Zamora on 06/03/2020. Afebrile. WBC 9.7 Patient tolerating tube feedings. [facility] PHYSICAL EXAM: VITAL SIGNS: Reviewed. GENERAL: Well-developed in no acute distress. HEENT: No sclera icterus. Extraocular movements grossly intact. Moist buccal mucosa. Head is atraumatic, normocephalic. ABDOMEN: Soft. Nondistended. Nontender. PEG tube site clean dry and intact no discharge NEUROLOGIC: Intubated ASSESSMENT: 1. Coronary artery disease status post three-vessel CABG 2. Severe protein calorie malnutrition status post PEG tube placement PLAN: -Continue supportive care -Continue tube feedings -Scheduled [facility] Physician Rn Camp note has been reviewed by physician. Signing provider agrees with the documented findings, assessment, and plan of care. Objective - Vital Signs Vital signs: Vital Signs Temp 99.5 F 06/09/20 09:00 Pulse 89 06/09/20 11:00 Resp 27 H 06/09/20 11:00 BP 125/72 06/09/20 11:00 Pulse Ox 98 06/09/20 11:00 Intake & Output 06/08/20 06/09/20 06/09/20 18:59 06:59 18:59 Intake Total 1675 990 20 Output Total 1130 525 375 Balance 545 465 -355 Weight 89.9 kg 88.7 kg Intake: IV 240 240 20 LR 240 240 20 Intake, IV Titration 0 Amount Insulin Regular 100 unit 0 In Sodium Chloride 0.9% 100 ml @ Per Protocol IV .Q0M [facility] Rx#:[id number] Tube Feeding 1405 720 Other 30 30 Output: Urine 1130 525 375 Other: Voiding Method Indwelling Catheter Indwelling Catheter Indwelling Catheter # Bowel Movements 1 ABP, PAP, CO, CI - Last Documented Arterial Blood Pressure 103/42 Pulmonary Artery Pressure 32/15 Cardiac Output 4.4 Cardiac Index 2.2 - Labs CBC & Chem 7: 06/09/20 03:11 06/09/20 03:11 Labs: Abnormal Lab Results - Last 24 Hours (Table) 06/08/20 06/08/20 06/09/20 Range/Units 17:42 23:49 03:11 RBC 2.88 L (4.30-5.90) m/uL Hgb 8.4 L (13.0-17.5) gm/dL Hct 25.9 L (39.0-53.0) % Plt Count 574 H (150-450) k/uL ABG pH (7.35-7.45) ABG HCO3 (21-25) mmol/L ABG Total CO2 (19-24) mmol/L ABG O2 Saturation (94-97) % Sodium (137-145) mmol/L Carbon Dioxide (22-30) mmol/L Creatinine (0.66-1.25) mg/dL Glucose (74-99) mg/dL POC Glucose (mg/dL) 296 H 207 H (75-99) mg/dL Calcium (8.4-10.2) mg/dL 06/09/20 06/09/20 06/09/20 Range/Units 03:11 04:59 05:11 RBC (4.30-5.90) m/uL Hgb (13.0-17.5) gm/dL Hct (39.0-53.0) % Plt Count (150-450) k/uL ABG pH 7.50 H (7.35-7.45) ABG HCO3 33 H (21-25) mmol/L ABG Total CO2 34 H (19-24) mmol/L ABG O2 Saturation 98.7 H (94-97) % Sodium 136 L (137-145) mmol/L Carbon Dioxide 33 H (22-30) mmol/L Creatinine 0.56 L (0.66-1.25) mg/dL Glucose 180 H (74-99) mg/dL POC Glucose (mg/dL) 227 H (75-99) mg/dL Calcium 8.3 L (8.4-10.2) mg/dL 06/09/20 Range/Units 11:40 RBC (4.30-5.90) m/uL Hgb (13.0-17.5) gm/dL Hct (39.0-53.0) % Plt Count (150-450) k/uL ABG pH (7.35-7.45) ABG HCO3 (21-25) mmol/L ABG Total CO2 (19-24) mmol/L ABG O2 Saturation (94-97) % Sodium (137-145) mmol/L Carbon Dioxide (22-30) mmol/L Creatinine (0.66-1.25) mg/dL Glucose (74-99) mg/dL POC Glucose (mg/dL) 265 H (75-99) mg/dL Calcium (8.4-10.2) mg/dL
[2020-06-09 12:50] VITALS: BMI 29.7
[2020-06-09] MEDS ORDERED: INSULIN DETEMIR (LEVEMIR) 100 UNIT/ML SYR SQ ONE (12:55)
[2020-06-09 13:04] VITALS: TEMP 99.3
--- NOTE | 2020-06-09 13:06 | P.PN ---
Subjective Progress Note Date: 06/09/20 Marcos Perez is a 74 yo M with PMH of CAD, hx CVA with residual dementia, T2DM, HTN, HLD who is admitted s/p CABG. He is doing well today, hemodynamically stable and extubated, upright in chair. His sugars are controlled on insulin drip. Pt remains confused and agitated this morning, unable to remember the reason he is hospitalized and trying to remove lines and refusing oral medications. He has no specific concerns for me today. 05/24/2020 Seroquel initiated yesterday. padder cushion remains at bedside Patient's agitation/combativeness /impulsiveness improving-fluctuates. No further Haldol/Ativan since yesterday. Mediastinal chest tube removed. Currently on Cleveprex drip. Blood sugars controlled. Chest x-ray reporting continued mild pulmonary vascular congestion with slight improvement in bilateral base aeration. Prominent air persists below the right hemidiaphragm. Maintaining O2 sats in the 90s on 2 L nasal cannula. Afebrile, WBC 12.6. 05/25/2020 He remains on seroquel and precedex drip, he has been intermittently agitated pulling at lines and confused. Pt's vitals and glucose are well controlled today. CT head repeated and no interval change. Pt unable to take PO nutrition and enteral feedings started. 05/26/2020 Re-intubated during the night, FiO2 recently decreased to 25%/+5 of PEEP. ABGs noted. Chest x-ray reported improving lung markings with left base infiltrate.Continues on diprovan and small dose of Levophed drips. Tenacious secretions from endotracheal tube. Sputum culture pending. Afebrile. Urine culture pending. 05/29/20 remains vent dependent, FiO2 25%/+5 of PEEP. Continues on diprovan drip. Chest x-ray reporting continued small left effusion with left basilar retrocardiac atelectasis and/or consolidation. IV Levaquin initiated yesterday. Received a dose of Lasix yesterday with 24-hour I&O reflecting a negative fluid balance. T-max 100.1. Covid results pending. Urine and sputum cultures reporting no growth, blood cultures pending. Staff reports midsternal incision site with minimal serous drainage. Telemetry sinus rhythm. Blood sugars controlled on Levemir. PEG tube placed yesterday, tolerated procedure well. Resuming tube feeding today. 05/30/2020 chest x-ray reported no significant change .extubated early this morn ing, unable to tolerate, reintubated. ABGs noted. Maintained on 40% FiO2/+5 of PEEP. Sedated on diprovan drip. Scheduled for tracheostomy tomorrow. Received a dose of Lasix yesterday with 24-hour I&O reflecting nearly a zero balance.Continues on Levaquin. Sputum culture reporting normal respiratory mattie. Urine culture no growth at 18 hours .Blood sugars ranging from 150s to 250s. Received suppository yesterday, no bowel movement, receiving another suppository today. 05/31/2020 remains vent dependent, 40% FiO2/+5 of PEEP. .Scheduled for tracheostomy today. Chest x-ray reporting small bilateral pleural effusions, bibasilar infiltrates. Maintained on diprovan and insulin drips. No pressors. Blood sugars controlled Telemetry sinus rhythm. T-max 100.9, normal WBC. ABGs noted, bicarb 33. 06/05/2020 maintained on vent support with FiO2 40%/+ repeat. Chest x-ray reporting no significant change-low lung volumes, cardiomegaly with moderate central vascular congestion and probable small bilateral pleural effusions .Continues on Precedex and insulin drips. Status post trach and PEG.PEG tube requiring replacement yesterday secondary to patient pulling out. Tolerated procedure well. Significant improvement in agitation on Precedex. Blood sugars controlled. Sputum culture reporting via Serratia marcescens. Currently on Levaquin. 06/06/2020 remains vent dependent on 40% FiO2/+5 of PEEP. ABGs noted. Chest x- ray reporting no significant change from prior, low lung volumes mild to moderate vascular congestion, small left pleural effusion and bibasilar atelectasis and/or infiltrate. Tolerating tube feeds with minimal residuals. Febrile, T-max 99.8, WBC 10.8. 06/07/2020 remains vent dependent with FiO2 40%/+5 of PEEP. Tolerated CPAP trial yesterday. ABGs noted. Chest x-ray reporting no significant change -low lung volumes, cardiomegaly with mild to moderate central vascular congestion along with small left pleural effusion and bibasilar atelectasis and/or infiltrate left greater than right .Significant sedated, Seroquel and Klonopin held. T-max 99.8, normal WBC. 06/08/2020 sedation adjusted yesterday with significant clinical improvement. Alert, following simple commands .Scheduled for CPAP trial today. Vent dependent with FiO2 40%/+ 5 PEEP. Chest x-ray reporting left lower lobe atelectasis, small left pleural effusion. Tolerating tube feeds at goal with minimal to no residual. Continues on insulin drip. Blood sugars currently controlled, fluctuating. T-max 99.7, CBC 10.7. Preparing for transfer to [facility],soon. 06/09/2020 Continues to do well on Seroquel only at hs.Remains alert, following commands, daily CPAP trials, currently on FiO2 40%/+ 5 peep. Chest x-ray reporting stable. Tolerating tube feeds at goal with minimal to no residual. Afebrile, normal WBC. Telemetry normal sinus rhythm. Patient has received authorization to transfer to select specialty today. Objective - Vital Signs Vital signs: Vital Signs Temp 99.5 F 06/09/20 09:00 Pulse 89 06/09/20 11:00 Resp 27 H 06/09/20 11:00 BP 125/72 06/09/20 11:00 Pulse Ox 98 06/09/20 11:00 Intake & Output 06/08/20 06/09/20 06/09/20 18:59 06:59 18:59 Intake Total 1675 990 20 Output Total 1130 525 375 Balance 545 465 -355 Weight 89.9 kg 88.7 kg Intake: IV 240 240 20 LR 240 240 20 Intake, IV Titration 0 Amount Insulin Regular 100 unit 0 In Sodium Chloride 0.9% 100 ml @ Per Protocol IV .Q0M [facility] Rx#:[id number] Tube Feeding 1405 720 Other 30 30 Output: Urine 1130 525 375 Other: Voiding Method Indwelling Catheter Indwelling Catheter Indwelling Catheter # Bowel Movements 1 ABP, PAP, CO, CI - Last Documented Arterial Blood Pressure 103/42 Pulmonary Artery Pressure 32/15 Cardiac Output 4.4 Cardiac Index 2.2 - Exam General: Sitting up in bed, Alert, awake, reintubated on mechanical ventilation, tracheostomy present. Eyes: PERRL, conjunctiva normal. HENT: normocephalic, atraumatic Neck: supple, no JVD. Tracheostomy present. Lungs: normal respiratory effort, bilateral bases diminished. Coarse. CV: Regular rate and rhythm, no murmur. Peripheral pulses 2+ Abdomen: soft, nondistended, no organomegaly, PEG tube present, positive bowel sounds Skin: warm and dry. No rash. EXTREMITIES: No edema, clubbing or cyanosis. Neuro: Alert, following simple commands, weak, on mechanical ventilation. Microbiology 06/02/20 08:40 Sputum Gram Stain - Final 06/02/20 08:40 Sputum Sputum Culture - Final Serratia marcescens 05/26/20 09:53 Blood Blood Culture - Final No Growth after 144 hours 05/25/20 22:00 Sputum Gram Stain - Final 05/25/20 22:00 Sputum Sputum Culture - Final 05/25/20 08:25 Urine,Voided Urine Culture - Final - Labs CBC & Chem 7: 06/09/20 03:11 06/09/20 03:11 Labs: Abnormal Lab Results - Last 24 Hours (Table) 06/08/20 06/08/20 06/09/20 Range/Units 17:42 23:49 03:11 RBC 2.88 L (4.30-5.90) m/uL Hgb 8.4 L (13.0-17.5) gm/dL Hct 25.9 L (39.0-53.0) % Plt Count 574 H (150-450) k/uL ABG pH (7.35-7.45) ABG HCO3 (21-25) mmol/L ABG Total CO2 (19-24) mmol/L ABG O2 Saturation (94-97) % Sodium (137-145) mmol/L Carbon Dioxide (22-30) mmol/L Creatinine (0.66-1.25) mg/dL Glucose (74-99) mg/dL POC Glucose (mg/dL) 296 H 207 H (75-99) mg/dL Calcium (8.4-10.2) mg/dL 06/09/20 06/09/20 06/09/20 Range/Units 03:11 04:59 05:11 RBC (4.30-5.90) m/uL Hgb (13.0-17.5) gm/dL Hct (39.0-53.0) % Plt Count (150-450) k/uL ABG pH 7.50 H (7.35-7.45) ABG HCO3 33 H (21-25) mmol/L ABG Total CO2 34 H (19-24) mmol/L ABG O2 Saturation 98.7 H (94-97) % Sodium 136 L (137-145) mmol/L Carbon Dioxide 33 H (22-30) mmol/L Creatinine 0.56 L (0.66-1.25) mg/dL Glucose 180 H (74-99) mg/dL POC Glucose (mg/dL) 227 H (75-99) mg/dL Calcium 8.3 L (8.4-10.2) mg/dL 06/09/20 Range/Units 11:40 RBC (4.30-5.90) m/uL Hgb (13.0-17.5) gm/dL Hct (39.0-53.0) % Plt Count (150-450) k/uL ABG pH (7.35-7.45) ABG HCO3 (21-25) mmol/L ABG Total CO2 (19-24) mmol/L ABG O2 Saturation (94-97) % Sodium (137-145) mmol/L Carbon Dioxide (22-30) mmol/L Creatinine (0.66-1.25) mg/dL Glucose (74-99) mg/dL POC Glucose (mg/dL) 265 H (75-99) mg/dL Calcium (8.4-10.2) mg/dL Assessment and Plan Assessment: (1) acute hypoxic respiratory failure, requiring reintubation X2. Failure to wean. Sputum culture with few Serratia marcescens. (2) Status post coronary artery bypass graft Current Visit: Yes Status: Acute Code(s): Z95.1 - PRESENCE OF AORTOCORONARY BYPASS GRAFT SNOMED Code(s): 297404724 (3)Triple vessel coronary artery disease Current Visit: Yes Status: Acute Code(s): I25.10 - ATHSCL HEART DISEASE OF [place] CORONARY ARTERY W/O ANG PCTRS SNOMED Code(s): 364839133 (4) History of CVA with residual deficit Current Visit: Yes Status: Acute Code(s): I69.30 - UNSPECIFIED SEQUELAE OF CEREBRAL INFARCTION SNOMED Code(s): 747249197 (5) Type 2 diabetes mellitus Current Visit: Yes Status: Acute Code(s): E11.9 - TYPE 2 DIABETES MELLITUS WITHOUT COMPLICATIONS SNOMED Code(s): 48056299 (6) Dementia Current Visit: Yes Status: Acute Code(s): F03.90 - UNSPECIFIED DEMENTIA WITHOUT BEHAVIORAL DISTURBANCE SNOMED Code(s): 17921702 (7) Cerebral infarction, remote, resolved Current Visit: No Status: Acute Code(s): Z86.73 - PRSNL HX OF TIA (TIA), AND CEREB INFRC W/O RESID DEFICITS SNOMED Code(s): 252387558 (8) PEG tube placement 2 (9) severe protein calorie malnutrition Plan: Continue current medication regime ,monitoring and symptomatic treatment. Maintain strict aspiration precautions with tube feeding. Levemir insulin dose increased, close monitoring of Accu-Cheks. Discharge planning in progress for LTAC transfer. Prognosis guarded given multiple complex medical issues. The impression and plan of care has been dictated as directed. : I performed a history and examination of this patient, discussed the same with the dictator. I agree with the dictator's note ,documented as a scribe. Any additional findings or plans will be noted.
--- NOTE | 2020-06-09 13:48 | P.PN ---
Subjective Progress Note Date: 06/09/20 Principal diagnosis: Status post CABG, postoperative day # 18 74-year-old male patient with post four-vessel bypass surgery. The patient is postop day #7 the patient underwent DOOLEY to LAD and saphenous vein graft to obtuse marginal and PDA. The patient has cardiomyopathy with ejection fraction of 45%. The patient has insulin-dependent diabetes mellitus and the patient has a previous history of CVA including with a short-term memory loss and impulsivity. Postextubation and currently the patient remains on a mechanical ventilator. His cardiac rhythm is sinus. He is hemodynamically stable. The patient remains on assist control mode of ventilation at the rate of 16 with a tidal volume of 450 and FiO2 of 25% and a PEEP of 5. He is post exhibition insertion and the patient will be started on feeding for nutritional support. Sedation is with propofol at a rate of 30mcg per KG per minute and insulin drip is running 4U units an hour for blood sugar control. Chest x-ray showing some retrocardiac infiltration and left basilar airspace disease. The patient is cur rently on Levaquin as an empiric antibiotic coverage. The patient is on DuoNeb nebulized treatments around the clock, aspirin and Plavix and the patient is also on metoprolol 25 mg by mouth twice a day. The sputum culture has shown no growth. Urine cultures no growth. A CAT scan of the brain that showed no evidence of any acute intracranial hemorrhage or midline shift. This is unchanged compared to previous CT if the brain of November 2019. The blood gases from today showed a pH of 7.5 with a pCO2 of 40 and pO2 of 79. Peak airway pressures nonelevated at 22. X-ray showing cardiomegaly. If she was in a good location. The patient has pulmonary vessel congestion. There is also bowel loops on the right hemidiaphragm. There is also volume loss and the patient is smaller lung volumes. The patient was given a dose of Lasix 40 mg of push yesterday. His net fluid balance for yesterday is negative 255 mL. urine output is in order of 30-60 mL an hour. Patient is also on Seroquel 50 mg by mouth twice a day. He is on Levemir insulin was introduced for blood sugar control. Patient was reevaluated today on 06/05/20, patient is now postoperative day #14. Remains on mechanical ventilation, his ventilator settings are assist control rate of 16, volume is 400 FiO2 is 40% PEEP of 5. Patient remains on Precedex at 0.4 mg/kg/h, remains on lactated Ringer's at 50 mL per hour. And he is on insulin at 4.5 units per hour. Patient is status post CABG on 05/22. Extubated on 05/22. Reintubated on 05/25 extubated on 05/30 reintubated 05/30 underwent tracheostomy on 05/31 PEG tube placement on 05/31 and his PEG tube had to be replaced again on 06/03 because he pulled it off. Patient is arousable, but gets agitated easily Precedex seems to be helping significantly. Keeps the patient called, patient was also placed on multiple medications for his anxiety and extreme agitation, yet to be started today via PEG tube. Chest x-ray showed cardiomegaly and small bilateral pleural effusions. Left more so than right. CBC showed WBC 9.7 hemoglobin 8.8. ABG showed a pO2 of 84 pCO2 of 42 pH of 7.49 basic metabolic profile is normal renal profile is normal. Last pro-calcitonin was 0.08, low. Reevaluated today on 06/06/20, patient is postoperative day #15. Remains intubated and mechanically ventilated he is on assist control rate of 16 tidal volume is 400 FiO2 is 40% PEEP is 5. ABG showed a pO2 of 96 pCO2 of 42 pH of 7.51. Patient is not requiring any pressors, he did tolerate yesterday pressure support of 10 and CPAP most of the day. Had to be placed on assist control mode of mechanical ventilation overnight. Patient is drowsy but arousable and follows simple instructions. CBC is relatively normal. Electrolytes and renal profile are normal. Patient is on enteral feeding. Via PEG tube. Chest x-ray showed low lung volumes, mild to moderate vascular congestion, and possibly a small left pleural effusion with basilar atelectasis. Possible infiltrate Reevaluated today on 06/07/20, patient remains in the ICU, intubated and mechanically ventilated. His ventilator settings are assist control rate of 16 tidal volume is 400 FiO2 is 40% and PEEP is 5. Patient seems to be quite sedated this morning, opens eyes, but does not follow any instructions. Grimaces to deep painful stimuli, but again does not follow any instructions. Hence we went ahead and held his sedatives including his Seroquel and his Klonopin. And we'll likely adjust the dose of Seroquel down significantly. Patient remains on enteral feeding, he is receiving vital AF at 65 ML per hour. Again he seems to be quite sedated, he is hemodynamically stable, and does not seem to be in any distress. ABG today showed a pO2 of 96 pCO2 of 44 pH of 7.49. Basic metabolic profile is normal. CBC is relatively normal, hemoglobin is 10. Chest x-ray showed mostly lower lung volumes, cardiomegaly, mild vascular congestion, and small left pleural effusion right basilar atelectasis and dilated bowel loops on the right side below the right diaphragm. Reevaluated today on 06/08/20, patient remains in the ICU, intubated and mechanically ventilated. He remains on assist control rate of 16 tidal volume is 400 FiO2 is 40% and PEEP of 5. ABG today showed a pO2 of 113 pCO2 41 pH of 7.51. Patient is off all sedation is except he is on Seroquel, we discontinued his Klonopin, we have discontinued his propofol and his Precedex. Today the patient seems to be awake, this is actually the best I have seen him. Patient is following instructions, wiggling toes, squeezing hands, seems to be quite flako ropriate. He remained generally weak. And definitely more awake today compared to what he was in the last few days. Hence I plan to give the patient a trial of pressure support of 10 and CPAP, I also plan to give the patient to 1 enema since he is not having true bowel movements for quite some time. He has a mucoid bowel movements. In the meantime we will continue to arrange for the patient is dressing the patient to LTAC. Chest x-ray showed left lower lobe atelectasis and small left pleural effusion. WBC count is 10.7 hemoglobin is 8.6. Electrolytes are normal. Patient is on IV fluid at 25 mL per hour, he is also on insulin at 8.5 units per hour. Reevaluated today on 06/09/20, patient remains in the ICU, intubated and mechanically ventilated. Patient did tolerate pressure support and CPAP yesterday, and we'll plan to do the same thing today. He'll be placed on pressure support of 10 or 8 and CPAP. As long as tolerates. Patient remains cooperative, not agitated as he used to be. And he remains on Seroquel. Not requiring any IV sedation. He is awake, follows simple instructions, chest x- ray is showing mostly left lower lobe atelectasis/retrocardiac. And no signific ant findings otherwise. Small effusions are also noted. Patient is following instructions, he remains on the same ventilator settings as noted above which is assist control rate of 16 tidal volume is 400 FiO2 is 40% and PEEP of 5. Patient is also tolerating tube feeding. With minimal residual. ABG today showed a pO2 of 94 pCO2 of 42 pH of 7.50 and this is on 40% FiO2. WBC count is 9.7 hemoglobin is 8.4. Electrolytes and renal profile are normal. Objective - Vital Signs Vital signs: Vital Signs Temp 99.3 F 06/09/20 12:00 Pulse 80 06/09/20 13:00 Resp 24 06/09/20 13:00 BP 131/64 06/09/20 13:00 Pulse Ox 99 06/09/20 13:00 Intake & Output 06/08/20 06/09/20 06/09/20 18:59 06:59 18:59 Intake Total 1675 990 410 Output Total 1130 525 925 Balance 545 465 -515 Weight 89.9 kg 88.7 kg 88.7 kg Intake: IV 240 240 20 LR 240 240 20 Intake, IV Titration 0 Amount Insulin Regular 100 unit 0 In Sodium Chloride 0.9% 100 ml @ Per Protocol IV .Q0M [facility] Rx#:[id number] Tube Feeding 1405 720 360 Other 30 30 30 Output: Urine 1130 525 925 Other: Voiding Method Indwelling Catheter Indwelling Catheter Indwelling Catheter # Bowel Movements 1 ABP, PAP, CO, CI - Last Documented Arterial Blood Pressure 103/42 Pulmonary Artery Pressure 32/15 Cardiac Output 4.4 Cardiac Index 2.2 - Exam GENERAL EXAM: Revealed a 74-year-old white male on mechanical ventilation, tracheostomy is intact, in no distress, awake and follows instructions. HEAD: Normocephalic. Atraumatic. EYES: PERRLA, EOMI, no icterus. NOSE: Unremarkable. Nasal mucosa is normal. THROAT: Tracheostomy is intact and the #8 [place]iley. NECK: No neck masses no stridor. CHEST: Symmetrical chest expansion, sternum is stable. Diminished at the bases. CVS: Normal S1 and S2, no S3 gallop ABDOMEN: Soft nontender no megaly no rebound no guarding. SKIN: No rashes no petechiae. CENTRAL NERVOUS SYSTEM: Arousable, follows instructions, and comprehending what he is being controlled. EXTREMITIES: No clubbing edema or cyanosis. - Labs CBC & Chem 7: 06/09/20 03:11 06/09/20 03:11 Labs: Abnormal Lab Results - Last 24 Hours (Table) 06/08/20 06/08/20 06/09/20 Range/Units 17:42 23:49 03:11 RBC 2.88 L (4.30-5.90) m/uL Hgb 8.4 L (13.0-17.5) gm/dL Hct 25.9 L (39.0-53.0) % Plt Count 574 H (150-450) k/uL ABG pH (7.35-7.45) ABG HCO3 (21-25) mmol/L ABG Total CO2 (19-24) mmol/L ABG O2 Saturation (94-97) % Sodium (137-145) mmol/L Carbon Dioxide (22-30) mmol/L Creatinine (0.66-1.25) mg/dL Glucose (74-99) mg/dL POC Glucose (mg/dL) 296 H 207 H (75-99) mg/dL Calcium (8.4-10.2) mg/dL 06/09/20 06/09/20 06/09/20 Range/Units 03:11 04:59 05:11 RBC (4.30-5.90) m/uL Hgb (13.0-17.5) gm/dL Hct (39.0-53.0) % Plt Count (150-450) k/uL ABG pH 7.50 H (7.35-7.45) ABG HCO3 33 H (21-25) mmol/L ABG Total CO2 34 H (19-24) mmol/L ABG O2 Saturation 98.7 H (94-97) % Sodium 136 L (137-145) mmol/L Carbon Dioxide 33 H (22-30) mmol/L Creatinine 0.56 L (0.66-1.25) mg/dL Glucose 180 H (74-99) mg/dL POC Glucose (mg/dL) 227 H (75-99) mg/dL Calcium 8.3 L (8.4-10.2) mg/dL 06/09/ Range/Units 11:40 RBC (4.30-5.90) m/uL Hgb (13.0-17.5) gm/dL Hct (39.0-53.0) % Plt Count (150-450) k/uL ABG pH (7.35-7.45) ABG HCO3 (21-25) mmol/L ABG Total CO2 (19-24) mmol/L ABG O2 Saturation (94-97) % Sodium (137-145) mmol/L Carbon Dioxide (22-30) mmol/L Creatinine (0.66-1.25) mg/dL Glucose (74-99) mg/dL POC Glucose (mg/dL) 265 H (75-99) mg/dL Calcium (8.4-10.2) mg/dL Assessment and Plan Assessment: Impression: Status post CABG, postoperative day #18 Acute hypoxic respiratory failure and failure to wean, patient required trache ostomy and PEG tube placement, unexpected. Ischemic cardiomyopathy and LV dysfunction. Ejection fraction 45%. Dyslipidemia. Chronic mild intermittent asthma Type 2 diabetes Tobacco dependence syndrome Previous history of CVA in November 2019 Benign essential hypertension History of PEG tube placement 2. Extreme postoperative agitation seems to be improving now with just Seroquel only. And we'll continue the same dose. We'll try to avoid any other sedatives Recommendation: Continue ventilatory support. Continued daily weaning trials with pressure support and CPAP. Today we'll try pressure support of 8 and CPAP. Continue Seroquel. We'll continue to pursue the issue of placement and this patient, as the patient will be difficult to wean from mechanical ventilation, Continue enteral feeding. Continue GI and DVT prophylaxis. Continue nutritional support. Critical care time is greater than 30 minutes. Time with Patient: Greater than 30
--- NOTE | 2020-06-09 14:55 | P.DS ---
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 Consult: post cardiac surgery Do you want consulting provider notified?: Yes Consult Physician Routine Consulting Provider: Nicola Salmeron Consult Reason/Comments: Wrister Consult: post cardiac surgery Do you want consulting provider notified?: Yes Consult Physician Routine Consulting Provider: Jose Antonio Tafoya Consult Reason/Comments: medical mgmt Do you want consulting provider notified?: Yes 05/27/20 08:44 Consult Physician Routine Consulting Provider: Chivo Zamora Consult Reason/Comments: peg tube placement Do you want consulting provider notified?: Already Contacted Primary care physician: Jose Antonio Tafoya MD Hospital Course: FINAL DIAGNOSIS: 1. Unstable angina, severe calcific triple-vessel coronary artery disease 2. Recent stroke in November 2019 with continued short-term memory loss and impulsivity 3. Cardiomyopathy with EF 45-50% 4. Hypertension 5. Hyperlipidemia 6. Insulin-dependent diabetes with preoperative hemoglobin A1c 8% 7. Asthma 8. Previous tobacco dependence preoperative FEV1 75% of predicted 9. Family history of premature coronary artery disease 10. Postoperative acute blood loss anemia and thrombocytopenia, expected 11. Acute hypoxic respiratory failure requiring reintubation with subsequent tracheostomy and PEG tube placement with prolonged mechanical ventilation 12. Metabolic alkalosis, hypokalemia, resolved PRINCIPAL PROCEDURE: 1. Coronary artery bypass grafting 3 with the left internal mammary artery to the left anterior descending artery, reverse saphenous vein graft off the aorta to the first obtuse marginal artery and the posterior descending artery 2. Endoscopic vein harvesting of the left greater saphenous vein 3. Clip ligation of the left atrial appendage and 35 mm AtriClip 4. Intraoperative transesophageal echocardiogram 5. PEG tube placement on 05/28/2020 6. Tracheostomy placement on 05/31/2020 HISTORY OF PRESENT ILLNESS: This is a 74-year-old gentleman who follows on an outpatient basis at the [facility]. The patient had been experiencing exertional dyspnea with ambulation, without any chest pain, nausea, vomiting, or dizziness. He had a recent stroke with subsequent forgetfulness and impulsivity with frequent falls at home. He underwent stress testing with cardiology demonstrating moderate reversible defect in the lateral wall and was recommended to undergo heart catheterization which demonstrated proximal LAD stenosis 90%, mid LAD stenosis 40-50%, second obtuse marginal branch of the circumflex was stenosis 95-99%, and mid RCA stenosis 60% with distal stenosis 80-90% before the bifurcation. He also had a transesophageal echocardiogram in November 2019 demonstrating ejection fraction 45-50%, mild aortic stenosis, mild to moderate mitral regurgitation with mitral annular cannula calcification, and mild tricuspid regurgitation. Carotid Dopplers revealed no significant flow-limiting stenosis in the internal carotid arteries. 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 Consultation was placed to Dr. Boone from cardiothoracic surgery. He was recommended to undergo coronary artery bypass surgery. The usual perioperative course was discussed in detail with the patient and his sister, all risks and benefits were explained, all questions were answered, and consent was obtained to proceed with surgery. The patient was discharged to home on maximal medical therapy to return as an outpatient for surgery after obtaining clearance from neurology. HOSPITAL COURSE: The patient was brought to the hospital on 05/22/2020, taken to the preoperative area, prepared in the usual fashion, and subsequently taken to the operating room where Dr. Boone performed three-vessel CABG. Upon completion of surgery the patient was transferred to the cardiovascular intensive care unit where he was recovered and monitored hemodynamically. He was extubated, all lines, tubes, and drips were discontinued when appropriate. Unfortunately he experienced acute hypoxic respiratory failure likely from inability to clear his secretions and he was reintubated. PEG tube was placed for nutrition and medication administration. He was extubated a second time but quickly became hypoxic and to And was subsequently reintubated with tracheostomy placement the next day. He did experience low-grade fevers with sputum culture positive for Serratia and received a full course of Levaquin. He has had CPAP trials the last several days, he is following commands, but still remains impulsive and has remained in upper extremity restraints to prevent inadvertent removal of tracheostomy and PEG tube. Physical and occupational therapy continue to work with him for strength training, he was tolerating bolus tube feeding, his pain was controlled without narcotics, and he was ready to be discharged to [facility] on postoperative day #18. Written instructions regarding medications, activity restrictions, signs and symptoms requiring physician notification will be sent with the [facility] to [facility]. Follow-up appointments should be made upon discharge from [facility]. COMPLICATIONS: The patient experienced postoperative acute blood loss anemia, from [facility], acute hypoxic respiratory failure and prolonged mechanical ventilation, all treated accordingly. Patient Condition at Discharge: Stable Plan - Discharge Summary Discharge Rx Participant: No New Discharge Prescriptions: New bisacodyL [Dulcolax] 10 mg RECTAL DAILY PRN supp PRN Reason: Constipation Ipratropium-Albuterol Nebulize [Duoneb 0.5 mg-3 mg/3 ml Soln] 3 ml INHALATION RT-Q4H ml Ipratropium-Albuterol Nebulize [Duoneb 0.5 mg-3 mg/3 ml Soln] 3 ml INHALATION RT-Q2H PRN ml PRN Reason: Shortness Of Breath Or Wheezing Heparin Sodium,Porcine [Heparin Sodium] 5,000 unit SQ Q8H vial Insulin Detemir (Levemir) [Levemir] 32 unit SQ DAILY@0700 syr Atorvastatin [Lipitor] 40 mg PO DAILY tab Metoprolol Tartrate [Lopressor] 12.5 mg PO BID tab Magnesium Hydroxide [Milk of Magnesia Concentrate] 2,400 mg PO BID PRN ml PRN Reason: Constipation polyethylene glycoL 3350 [Miralax] 17 gm PO DAILY powd.pack INSULIN ASPART (NovoLOG) [NovoLOG (formulary)] 12 unit SQ Q6HR vial Chlorhexidine Gluconate [Peridex] 15 ml MUCOUS MEM BID ml Clopidogrel [Plavix] 75 mg PO DAILY tab Sennosides-Docusate Sodium [Senokot-S] 2 each PO HS tab QUEtiapine [SEROquel] 50 mg PO HS tab Acetaminophen Tab [Tylenol] 650 mg PO Q4HR PRN tab PRN Reason: Fever And/ Or Pain lisinopriL [Zestril] 5 mg PO DAILY tab Continue Aspirin 325 mg PO DAILY #30 tab Discontinued metFORMIN HCL 500 mg PO BID Omeprazole [PriLOSEC] 20 mg PO AC-BRKFST Cholecalciferol [Vitamin D3 (25 Mcg = 1000 Iu)] 1,000 unit PO DAILY Vitamin E (Dl,Tocopheryl Acet) [Vitamin E] 400 unit PO DAILY Backus-3 Fatty Acids/Fish Oil [Fish Oil 1,000 mg Softgel] 1 cap PO DAILY Insuln Asp Prt/Insulin Aspart [NovoLOG MIX 70-30 VIAL] 50 unit SQ QAM #0 Insuln Asp Prt/Insulin Aspart [NovoLOG MIX 70-30 VIAL] 25 unit SQ HS #0 lisinopriL [Zestril] 10 mg PO DAILY Calcium Carbonate [Calcium] 600 mg PO DAILY Atorvastatin [Lipitor] 80 mg PO DAILY #90 tab amLODIPine [Norvasc] 10 mg PO QAM Metoprolol Tartrate [Lopressor] 25 mg PO BID Garlic 1 each PO DAILY Discharge Medication List Aspirin 325 mg PO DAILY #30 tab 12/03/19 [Rx] Acetaminophen Tab [Tylenol] 650 mg PO Q4HR PRN tab 06/09/20 [Rx] Atorvastatin [Lipitor] 40 mg PO DAILY tab 06/09/20 [Rx] Chlorhexidine Gluconate [Peridex] 15 ml MUCOUS MEM BID ml 06/09/20 [Rx] Clopidogrel [Plavix] 75 mg PO DAILY tab 06/09/20 [Rx] Heparin Sodium,Porcine [Heparin Sodium] 5,000 unit SQ Q8H vial 06/09/20 [Rx] INSULIN ASPART (NovoLOG) [NovoLOG (formulary)] 12 unit SQ Q6HR vial 06/09/20 [Rx] Insulin Detemir (Levemir) [Levemir] 32 unit SQ DAILY@0700 syr 06/09/20 [Rx] Ipratropium-Albuterol Nebulize [Duoneb 0.5 mg-3 mg/3 ml Soln] 3 ml INHALATION RT-Q2H PRN ml 06/09/20 [Rx] Ipratropium-Albuterol Nebulize [Duoneb 0.5 mg-3 mg/3 ml Soln] 3 ml INHALATION RT-Q4H ml 06/09/20 [Rx] Magnesium Hydroxide [Milk of Magnesia Concentrate] 2,400 mg PO BID PRN ml 06/09/20 [Rx] Metoprolol Tartrate [Lopressor] 12.5 mg PO BID tab 06/09/20 [Rx] QUEtiapine [SEROquel] 50 mg PO HS tab 06/09/20 [Rx] Sennosides-Docusate Sodium [Senokot-S] 2 each PO HS tab 06/09/20 [Rx] bisacodyL [Dulcolax] 10 mg RECTAL DAILY PRN supp 06/09/20 [Rx] lisinopriL [Zestril] 5 mg PO DAILY tab 06/09/20 [Rx] polyethylene glycoL 3350 [Miralax] 17 gm PO DAILY powd.pack 06/09/20 [Rx] Follow up Appointment(s)/Referral(s): Taryn Reyes MD [STAFF PHYSICIAN] - 1 Week (Please call to make appointment upon discharge from [facility]) Jose Antonio Tafoya MD [Primary Care Provider] - 1 Week (Please call to make appointment upon discharge from [facility]) Joe Perdomo DO [Doctor of Osteopathic Medicine] - 1 Week (Please call to make appointment upon discharge from [facility]) Tomas Boone MD [STAFF PHYSICIAN] - 1 Week (Please call to make appointment upon discharge from [facility]) Activity/Diet/Wound Care/Special Instructions: Tube Feedings: Vital AF 400 mL every 4 hours with 30mL free water flush every 4 hours Leather Production Worker to re-evaluate as needed DISCHARGE INSTRUCTIONS: 1. No driving for 4 weeks, or until physician gives their ok. 2. The patient should sleep in their own bed, no medical bed needed. 3. Stairs are not an issue. If the bedroom is upstairs, it is advised that the patient go up at night and down in the morning for the first week. Go slowly, using handrail and take 1 step at a time. 4. DINA hose are to be worn for 30 days or until physician discontinues. 5. Heart hugger is to be worn 100% of the time until physician discontinues.(except when showering) 6. No lifting, pushing, or pulling more than 10 pounds for 12 weeks. The physician will advise of any restriction changes. 7. The patient is expected to continue the prescribed walking program. 8. Continue pain control per as needed orders. 9. Continue with incentive spirometry and splinting/heart hugger until otherwise directed by the physician. 10. Must shower daily using liquid antibacterial soap and a separate white washcloth for each individual incision. 11. Routine sternal incision care. No powders, lotions, ointments on incisions. No dressings are necessary on incisions unless they are draining. Dermabond tape is to remain on sternal incision until surgeon follow-up. 12. Please call surgeon/MARINE PIPE WELDER for temp greater than 101 F or purulent drainage from incisions. 13. All prescriptions given by surgeon for 30 days. Refills need to be filled through wildland fire operations specialist/primary care physician. 14. A Red armband has been placed on the patient. It should be worn for 30 days post surgery and will be removed by the cardiac surgeons. If an ER visit is necessary, please make sure the number on the Red armband is called. 15. You have been referred to and are expected to begin Cardiac Rehab in approximately 4-6 weeks. 16. Please keep a log of your blood sugars and bring with you to your appointment with Dr. Tafoya [facility] TO PROVIDE: RN SKILLED HOME CARE SERVICES FOR POST-OP SURGICAL PATIENTS WITH THE FOLLOWING: Coronary Artery Bypass Surgery (CABG), Mitral Valve Replacement/Repair ( MVR), Aortic Valve Replacement/Repair (AVR) RN TO CONTINUE EDUCATION FROM ``ROAD TO A HEALTH HEART PATIENT EDUCATION MANUAL (GIVEN TO PATIENT IN THE HOSPITAL) MEDICATION RECONCILIATION WITH EDUCATION NEEDED ON FIRST HOME VISIT EMPHASIZE IMPORTANCE OF WEARING BREAST SUPPORT/HEART HUGGER ENCOURAGE USE OF INCENTIVE SPIROMETER 10 X EVERY HOUR WHILE AWAKE ENCOURAGE UTILIZATION OF LOWER EXTREMITY COMPRESSION STOCKINGS/DINA HOSE and ELEVATE LEGS ABOVE LEVEL OF HEART WHILE AT REST. ENCOURAGE AMBULATION 3-5x/day INCREASING TOLERATES, WHILE AVOIDING EXTREMES IN TEMPERATURE For any questions or concerns please call template reproduction technician Yenni @ or Moi @ Discharge Disposition: [facility]
[2020-06-09 16:49] VITALS: PULSE 76
[2020-06-09 17:03] LABS: Glucose,Whole Blood 255 mg/dL (75-99)
[2020-06-09 18:46] VITALS: BP 143/91; RESP 26
[2020-06-10] MEDS ORDERED: INSULIN DETEMIR (LEVEMIR) 100 UNIT/ML SYR SQ SCH ×2 (07:00)
--- NOTE | 2020-06-13 10:09 | CDI ---
Documentation Clarification Form Date: 06/13/20 From: Christiana Mak Phone: Please call Gabrielle Nunez at from 8-5pm for questions Admit Date: 05/22/2020 05:33:00 AM Patient Name: Marcos Perez Visit Number: [id number] Discharge Date: 06/09/2020 06:57:00 PM ATTENTION: The Clinical Documentation Specialists (CDI) and [facility] Coding Staff appreciate your assistance in clarifying documentation. Please respond to the clarification below the line at the bottom and electronically sign. The CDI & [facility] Coding staff will review the response and follow-up if needed. Please note: Queries are made part of the Legal Health Record. If you have any questions, please contact the author of this message via ITS. Dr. Tomas Boone, Possible pneumonia was documented in your notes on 06/01, 06/02, 06/03 & 06/04. History/Risk Factors: recent CABG, acute hypoxic respiratory failure, severe PCM, s/p trach, GERALD, HTN, DM Clinical Indicators: 06/01 PN-possible elements of pulmonary infiltrate or pneumonia. Vital signs: [id number], P-59, R-18, BP-91/53, Sat-99% on mechanical ventilation WBC/Left shift: 06/05-10.7 & 1Neutrophils-07/22-03/30 05/30-X-ray: Left lower lobe atelectasis versus pneumonia, possible small effusion. Lung/Breathing assessment: Postextubation and currently the patient remains on a mechanical ventilator. Treatment: IV Levaquin, mechanical ventilation and trach In order to capture the severity of condition, please clarify if the condition signifies and you are treating for: Aspiration Pneumonia, identify if: Due to solids or liquids Due to anesthesia during puerperium Bacterial Pneumonia, specify causal organism (if known) Due to Serratia marcescens Ventilator Associated Pneumonia Healthcare Acquired Pneumonia/Pneumonia, unspecified Other, please specify Unable to determine probable aspiration pneumonia due to inability to clear secretions MTDD
== END 2020-06-09 18:57 | DRG 3 ==
LOC: 2ORMAIN 05:33 → 2SICU 14:04
PROVIDERS: ADMIT Family Medicine; ATTEND Thoracic Surgery (Cardiothoracic Vascular Surgery)
PROC: 021109W Bypass Coronary Artery, Two Arteries from Aorta with Autologous Venous Tissue, Open Approach (ICD-10-PCS; 2020-05-22 08:00)
PROC: 02L70CK Occlusion of Left Atrial Appendage with Extraluminal Device, Open Approach (ICD-10-PCS; 2020-05-22 08:00)
PROC: B24BZZ4 Ultrasonography of Heart with Aorta, Transesophageal (ICD-10-PCS; 2020-05-22 08:00)
PROC: 02100Z9 Bypass Coronary Artery, One Artery from Left Internal Mammary, Open Approach (ICD-10-PCS; 2020-05-22 08:00)
PROC: 06BQ4ZZ Excision of Left Saphenous Vein, Percutaneous Endoscopic Approach (ICD-10-PCS; 2020-05-22 08:00)
PROC: 5A1221Z Performance of Cardiac Output, Continuous (ICD-10-PCS; 2020-05-22 08:00)
PROC: 0DH67UZ Insertion of Feeding Device into Stomach, Via Natural or Artificial Opening (ICD-10-PCS; 2020-05-23)
PROC: 5A1955Z Respiratory Ventilation, Greater than 96 Consecutive Hours (ICD-10-PCS; 2020-05-25)
PROC: 0BH17EZ Insertion of Endotracheal Airway into Trachea, Via Natural or Artificial Opening (ICD-10-PCS; 2020-05-25)
PROC: 3E0G76Z Introduction of Nutritional Substance into Upper GI, Via Natural or Artificial Opening (ICD-10-PCS; 2020-05-25)
PROC: 3E033XZ Introduction of Vasopressor into Peripheral Vein, Percutaneous Approach (ICD-10-PCS; 2020-05-26)
PROC: 0DH63UZ Insertion of Feeding Device into Stomach, Percutaneous Approach (ICD-10-PCS; 2020-05-28)
PROC: 5A1955Z Respiratory Ventilation, Greater than 96 Consecutive Hours (ICD-10-PCS; 2020-05-30)
PROC: 0BH17EZ Insertion of Endotracheal Airway into Trachea, Via Natural or Artificial Opening (ICD-10-PCS; 2020-05-30)
PROC: 0B110F4 Bypass Trachea to Cutaneous with Tracheostomy Device, Open Approach (ICD-10-PCS; principal; 2020-05-31 11:00)
PROC: 0DW68UZ Revision of Feeding Device in Stomach, Via Natural or Artificial Opening Endoscopic (ICD-10-PCS; 2020-06-03)
DX: I25.110 Atherosclerotic heart disease of native coronary artery with unstable angina pectoris (principal); J69.0 Pneumonitis due to inhalation of food and vomit; E43 Unspecified severe protein-calorie malnutrition; J96.01 Acute respiratory failure with hypoxia; E87.4 Mixed disorder of acid-base balance; D62 Acute posthemorrhagic anemia; Z99.11 Dependence on respirator [ventilator] status; I48.92 Unspecified atrial flutter; J98.11 Atelectasis; Z43.1 Encounter for attention to gastrostomy; D69.6 Thrombocytopenia, unspecified; E11.51 Type 2 diabetes mellitus with diabetic peripheral angiopathy without gangrene; I11.9 Hypertensive heart disease without heart failure; F03.90 Unspecified dementia, unspecified severity, without behavioral disturbance, psychotic disturbance, mood disturbance, and anxiety; Z79.4 Long term (current) use of insulin; I48.91 Unspecified atrial fibrillation; D33.3 Benign neoplasm of cranial nerves; I95.9 Hypotension, unspecified; I25.84 Coronary atherosclerosis due to calcified coronary lesion; I25.5 Ischemic cardiomyopathy; Z20.828 Contact with and (suspected) exposure to other viral communicable diseases; E87.6 Hypokalemia; I08.3 Combined rheumatic disorders of mitral, aortic and tricuspid valves; E78.5 Hyperlipidemia, unspecified; F41.9 Anxiety disorder, unspecified; J45.20 Mild intermittent asthma, uncomplicated; K21.9 Gastro-esophageal reflux disease without esophagitis; K42.9 Umbilical hernia without obstruction or gangrene; R33.9 Retention of urine, unspecified; R32 Unspecified urinary incontinence; R29.6 Repeated falls; H91.92 Unspecified hearing loss, left ear; I69.318 Other symptoms and signs involving cognitive functions following cerebral infarction; K59.00 Constipation, unspecified; Z68.29 Body mass index [BMI] 29.0-29.9, adult; Z79.82 Long term (current) use of aspirin; Z79.899 Other long term (current) drug therapy; Z78.1 Physical restraint status; Z87.891 Personal history of nicotine dependence; Z87.19 Personal history of other diseases of the digestive system; Z86.69 Personal history of other diseases of the nervous system and sense organs; Z71.3 Dietary counseling and surveillance; Z98.890 Other specified postprocedural states; Z88.0 Allergy status to penicillin; Z88.2 Allergy status to sulfonamides; Z80.8 Family history of malignant neoplasm of other organs or systems; Z82.49 Family history of ischemic heart disease and other diseases of the circulatory system; Z80.3 Family history of malignant neoplasm of breast
CPT/HCPCS: 36600; 43246; 70450; 71045; 80048; 80053; 81001; 82330; 82805; 83735; 83935; 84132; 84145; 84300; 84439; 84443; 85025; 85027; 85520; 85610; 85730; 86850; 86891; 86900; 86901; 86920; 87040; 87070; 87077; 87086; 87186; 87205; 94002; 94003; 94640